=== PATIENT | male | born 1975 | race Caucasian/White ===

== ENCOUNTER 2017-04-02 06:00 | Inpatient (IN) ==
[2017-04-02] MEDS ORDERED: SALINE FLUSH 10ml SYRINGE IVF PRN (06:16)
[2017-04-02 06:23] VITALS: TEMP 98.4
--- NOTE | 2017-04-02 06:38 | Emergency Department Report ---
General Adult HPI - General Chief complaint: Shortness of Breath/Dyspnea Stated complaint: Trouble breathing Time Seen by Provider: 04/02/17 06:15 Source: patient Mode of arrival: ambulatory Limitations: no limitations - History of Present Illness HPI narrative: 42-year-old male presents to the emergency department with the chief complaint of a productive cough of yellow mucus and shortness of breath. He shouldn't noted onset of symptoms approximately 2 weeks ago. Symptoms have been gradually progressive in nature since onset. He was at home when his symptoms began. Patient also notes a moderate sharp pain in his left posterior ribs with coughing. No radiation. No other complaints or associated symptoms. Patient does have a history of similar symptoms in the past when he was diagnosed with pneumonia. - Related Data Home Medications Medication Instructions Recorded Confirmed Acetaminophen [Tylenol] 500 mg PO TID 04/02/17 04/02/17 Ibuprofen 200 mg PO TID 04/02/17 04/02/17 Allergies Allergy/AdvReac Type Severity Reaction Status Date / Time No Known Allergies Allergy Verified 04/02/17 08:29 Review of Systems Constitutional: Denies: fever, chills Eyes: Denies: eye pain, vision change ENT: Denies: ear pain, throat pain Cardiovascular: Denies: chest pain, palpitations Respiratory: Reports: cough, dyspnea. Denies: wheezes, hemoptysis Gastrointestinal: Denies: abdominal pain, nausea, vomiting, diarrhea Genitourinary: Denies: urgency, dysuria Musculoskeletal: Denies: back pain, arthralgia Integumentary: Denies: erythema, rash Neurological: Denies: headache, numbness Psychiatric: Denies: anxiety, depression Endocrine: Denies: fatigue, heat or cold intolerance Hematological/Lymphatic: Denies: easy bleeding, easy bruising PFSH Pneumonia Surgical History: Appendectomy Family History: Reviewed and noncontributory - Social History Smoking status: Current every day smoker Substance use type: does not use Alcohol intake frequency: a few times a month Physical Exam - Limitations Limitations: no limitations - General General appearance: alert, in distress (mild resp. distress) - Normal Exams: Head:: Normocephalic without trauma Eyes:: Pupils are PERRLA w/ EOMI, No scleral icterus, irritation, or foreign bodies noted ENMT:: No facial trauma, nasal exudates, pharyngeal erythema, or exudates are noted Dental: No fractured, loose, or missing teeth noted Neck:: Full range of motion, without adenopathy, JVD, bruits or thyromegaly Chest/Respirations:: with good airflow (by basilar crackles greater on the left. ), and symmetry bilaterally Cardiovascular:: Regular rate and rhythm, without murmur or gallop, Pulses 2+ all extremities, capillary refill, <2 seconds all extremities Abdomen:: Bowel sounds positive, soft, non-tender, non-distended, no hepatosplenomegaly, masses or bruits noted Lymphatic:: No lymphadenopathy, or lymphedema noted Musculoskeletal:: No tenderness, or deformity noted, good range of motion, all extremities Integumentary:: No rashes, hives, or bruising noted, hair and nails, without abnormality Neurological:: Patient is alert, and oriented, cranial nerves, motor/sensory/ cerebellar, exams w/o gross deficits, to observation Course Vital Signs Temperature 98.4 F 04/02/17 06:03 Pulse Rate 108 H 04/02/17 06:03 Respiratory Rate 42 H 04/02/17 06:03 Blood Pressure 155/111 H 04/02/17 06:03 Pulse Oximetry 87 L 04/02/17 06:03 Temperature 98.4 F 04/02/17 06:03 Pulse Rate 100 04/02/17 10:15 Respiratory Rate 36 H 04/02/17 10:15 Blood Pressure 122/77 04/02/17 10:15 Pulse Oximetry 93 04/02/17 10:15 Medical Decision Making - [facility] Narrative Medical decision making narrative: Labs / imaging were discussed in detail with the patient and questions are answered. Patient was given Rocephin and Zithromax intravenously. Patient was given parental narcotic and antiemetic medications intravenously with improvement of symptoms. Patient originally is in agreement with the current plan of management is admitted to the hospital to the service of Dr. Mcdermott in improved condition. Patient is requiring supplemental oxygenation. After being admitted to the service of the hospitalist, the patient changes his mind and requests to leave AGAINST MEDICAL ADVICE. Patient signed the AMA form and leaves emergency department AGAINST MEDICAL ADVICE. Patient is clinically sober. Patient is capable of sounds medical decision-making. Patient is aware that he may return to the emergency department any time if he wishes to be re- evaluated or if his condition worsens or changes in any manner. Patient is instructed to return to the emergency Department if his condition worsens or changes in any manner. Patient is to follow-up with his primary care physician or health ministries as soon as possible. Repeat attempt at counseling was made in or to get the patient to change his mind and undergo further evaluation and treatment which he declines. Patient signed the AMA form and leaves the emergency department AGAINST MEDICAL ADVICE at this time. He is aware that leaving the emergency department AGAINST MEDICAL ADVICE could result in and/or permanent disability. Patient was convinced to take a prescription for Levaquin even though he refused discharge instructions. Patient was given Rocephin and Zithromax intravenously at 0815 and the chest x- ray was reviewed and sepsis was considered. Patient was never hypotensive in the emergency department and his lactic acid was never greater than 4. At 0900 the patient requests to leave against medical advice. He left AMA shortly following 0900. - Differential Diagnosis PNA, Pneumothorax, URI, Acute bronchitis - Lab Data Result diagrams: 04/02/17 06:47 04/02/17 06:47 Lab Results 04/02/17 04/02/17 04/02/17 Range/Units 06:47 06:47 06:47 WBC 13.5 H (4.5-11.0) T/MM3 RBC 4.84 (4.50-5.90) M/MM3 Hgb 15.4 (13.5-17.5) GM/DL Hct 46.8 (41-53) % MCV 96.7 (80-100) UM3 MCH 31.8 (26-34) UUG MCHC 32.9 (31-37) GM/DL RDW Std Deviation 50.4 H (36.9-50.2) FL Plt Count 251 (130-400) T/MM3 MPV 10.2 (9.4-12.4) UM3 Immature Gran % (Auto) 0.4 (0.0-0.5) % Neut % (Auto) 79.9 H (33-66) % Lymph % (Auto) 12.3 L (23-45) % [place] % (Auto) 4.4 (0-9.0) % Eos % (Auto) 2.5 (0-4) % Baso % (Auto) 0.5 (0-2) % Neut # (Auto) 10.8 H (1.8-7.7) T/MM3 Lymph # (Auto) 1.7 (1-4.8) T/MM3 [place] # (Auto) 0.6 (0-0.8) T/MM3 Eos # (Auto) 0.3 (0-0.5) T/MM3 Baso # (Auto) 0.1 (0-0.2) T/MM3 Abs Immat Gran (auto) 0.06 H (0.00-0.03) T/MM3 Turbidity < 20 (0-20) Sodium 141 (134-144) MEQ/L Potassium 4.9 (3.6-5) MEQ/L Chloride 105 (98-107) MEQ/L Carbon Dioxide 27 (22-30) MEQ/L Anion Gap 9 (5-15) MEQ/L BUN 15.0 (9-20) MG/DL Creatinine 0.7 L (0.8-1.5) MG/DL GFR Calculation 125 BUN/Creatinine Ratio 21 (6-26) RATIO Glucose 153 H (75-110) MG/DL Hemoglobin A1c (4.0-5.7) % Calculated Osmolality 275 (261-280) MOSM/KG Calcium 9.1 (8.4-10.2) MG/DL Total Bilirubin 0.50 (0.20-1.30) MG/DL Icterus Index < 2 (0-7) AST 39 (17-59) U/L ALT 72 (21-72) U/L Alkaline Phosphatase 87 (38-126) U/L Troponin I < 0.012 (0-0.12) ng/ml B-Natriuretic Peptide 77.4 (0-175) pg/mL Total Protein 7.7 (6.3-8.2) G/DL Albumin 4.2 (3.5-5.0) G/DL Globulin 3.5 (2.4-3.6) G/DL Albumin/Globulin Ratio 1.2 (1.1-2.2) RATIO Plasma Lactate Procalcitonin < 0.05 NG/ML TSH (0.47-4.68) MIU/L Specimen Hemolysis < 15 (0-25) 04/02/17 04/02/17 Range/Units 06:47 07:26 WBC (4.5-11.0) T/MM3 RBC (4.50-5.90) M/MM3 Hgb (13.5-17.5) GM/DL Hct (41-53) % MCV (80-100) UM3 MCH (26-34) UUG MCHC (31-37) GM/DL RDW Std Deviation (36.9-50.2) FL Plt Count (130-400) T/MM3 MPV (9.4-12.4) UM3 Immature Gran % (Auto) (0.0-0.5) % Neut % (Auto) (33-66) % Lymph % (Auto) (23-45) % [place] % (Auto) (0-9.0) % Eos % (Auto) (0-4) % Baso % (Auto) (0-2) % Neut # (Auto) (1.8-7.7) T/MM3 Lymph # (Auto) (1-4.8) T/MM3 [place] # (Auto) (0-0.8) T/MM3 Eos # (Auto) (0-0.5) T/MM3 Baso # (Auto) (0-0.2) T/MM3 Abs Immat Gran (auto) (0.00-0.03) T/MM3 Turbidity (0-20) Sodium (134-144) MEQ/L Potassium (3.6-5) MEQ/L Chloride (98-107) MEQ/L Carbon Dioxide (22-30) MEQ/L Anion Gap (5-15) MEQ/L BUN (9-20) MG/DL Creatinine (0.8-1.5) MG/DL GFR Calculation BUN/Creatinine Ratio (6-26) RATIO Glucose (75-110) MG/DL Hemoglobin A1c 7.1 H (4.0-5.7) % Calculated Osmolality (261-280) MOSM/KG Calcium (8.4-10.2) MG/DL Total Bilirubin (0.20-1.30) MG/DL Icterus Index (0-7) AST (17-59) U/L ALT (21-72) U/L Alkaline Phosphatase (38-126) U/L Troponin I (0-0.12) ng/ml B-Natriuretic Peptide (0-175) pg/mL Total Protein (6.3-8.2) G/DL Albumin (3.5-5.0) G/DL Globulin (2.4-3.6) G/DL Albumin/Globulin Ratio (1.1-2.2) RATIO Plasma Lactate Cancelled 1.4 Procalcitonin NG/ML TSH 5.57 H (0.47-4.68) MIU/L Specimen Hemolysis (0-25) - Radiology Data CXR: Impression: Lower lobe pneumonia, worse on the left. - EKG Data EKG #1 EKG results narrative: Sinus rhythm with sinus arrhythmia. 93 bpm. No STEMI. Normal EKG. Disposition Clinical Impression: Acute dyspnea Pneumonia Qualifiers: Pneumonia type: due to unspecified organism Laterality: unspecified laterality Lung location: unspecified part of lung Qualified Code(s): J18.9 - Pneumonia, unspecified organism Disposition: To [facility] Condition: Stable Time of Disposition: 08:00 (Admit. Dr. Mcdermott. ) - Seen By: physician
[2017-04-02] MEDS ORDERED: ALBUTEROL/IPRATROPIUM 2.5mg-0.5mg/3ml NEB AEROSOL ONE (06:47)
--- NOTE | 2017-04-02 07:54 | XRay Report ---
Indication: sob PROCEDURE: XR chest 1V: Encounter: Initial Comparison: None Findings: The lungs are hypoinflated. Elevated left hemidiaphragm. Hazy airspace disease in both lower lung dorman, left greater than right. No pneumothorax. Cardiac silhouette is partially obscured by the elevated diaphragm and appears at the upper limits of normal in size. Mediastinal contours are within normal limits. Impression: Lower lobe pneumonia, worse on the left. .
[2017-04-02] MEDS ORDERED: AZITHROMYCIN IV 500 MG in NS 250ml 250 ML IV ONE (08:15)
[2017-04-02] MEDS ORDERED: CEFTRIAXONE (ER USE ONLY) 1 GM in NS 100 ML IV ONE (08:15)
[2017-04-02] MEDS ORDERED: NS 1,000 ML IV ONE (08:16)
[2017-04-02] MEDS ORDERED: ONDANSETRON 4 MG/2 ML INJECTION IVP ONE (08:20)
[2017-04-02] MEDS ORDERED: FentaNYL 100 MCG/2 ML INJECTION IVP ONE (08:20)
--- NOTE | 2017-04-02 09:20 | History & Physical Report ---
History of Present Illness Date: 04/02/17 Chief complaint: shortness of breath HPI: Patient is a 42-year-old male who presents to the emergency room today with shortness of breath and pain in the left side of his back. States he's had some runny and stuffy nose this past week. He really hasn't had much of a cough other than his chronic smoker's cough. This morning he woke up and he coughed and had a "pinching" pain to the back and this prompted him to come in. He also reports that over the last 2-4 weeks she's had significant swelling to his abdomen and lower extremities. He denies history of asthma. Reports he had pneumonia 10 years ago. Patient was seen in the emergency room. He reports the pain in his back is now just a dull ache. He is obviously short of breath. He is asking how long he is going to be here as he has 4 more days to work for [employer]. He reports that he will be leaving in 24 hours regardless. Review of Systems All systems PM: 10-point ROS was reviewed, no additional remarkable complaints except Review of systems: dyspnea, pain in L lateral back with cough this morning, minimal cough, swelling to abdomen and legs x 2-4 weeks, rash R axilla after using new deodorant months ago. [facility] Medical history Morbid obesity - BMI 42 Surgical History: appy Family History: Father - CAD, DM Mother - healthy - Social History Smoking status: Current every day smoker (1ppd x 20 yrs) Substance use type: does not use Alcohol intake frequency: other (rare) Household members: children (2 son (Jr and 6th grader)) Social history: No PCP. Kids see Dr. Jerez. Beatriz dunlap. Works for [employer] currently. Medications Home Medications Medication Instructions Recorded Confirmed Type Acetaminophen [Tylenol] 500 mg PO TID 04/02/17 04/02/17 History Ibuprofen 200 mg PO TID 04/02/17 04/02/17 History Allergies Allergy/AdvReac Type Severity Reaction Status Date / Time No Known Allergies Allergy Verified 04/02/17 08:29 Exam Vital Signs: Temperature 98.4 F 04/02/17 06:03 Pulse Rate 108 H 04/02/17 06:03 Respiratory Rate 44 H 04/02/17 06:31 Blood Pressure 155/111 H 04/02/17 06:03 Pulse Oximetry 94 04/02/17 06:31 - Constitutional Present: well nourished, well developed, morbidly obese - Routine HEENT Exam Head: Present: normocephalic, atraumatic Eye: Present: EOMI, PERRL ENT: Present: mucous membranes moist. Absent: oropharynx clear (erythema to the soft palate), dentition normal (missing teeth) - Routine Neck Exam Present: supple. Absent: lymphadenopathy, thyromegaly - Routine Respiratory Exam Present: dyspnea, decreased breath sounds, CTA bilaterally (subtle coarse expiratory wheeze) - Routine Cardiovascular Exam Present: tachycardia. Absent: murmur Comments: Regular rhythm - Routine Abdominal Exam Present: normoactive bowel sounds, firm. Absent: tenderness, rebound, guarding Comments: Exam is limited due to the obesity and firmness of his abdomen - Routine Extremities Exam Present: edema (anasarca), normal capillary refill - Routine Skin Exam Present: dry, warm, rash (diffuse fungal rash to the right axilla extending onto the upper arm and chest) - Routine Neurological Exam Present: alert, oriented X3, CN II-XII intact - Routine Psychiatric Exam Present: normal affect, cooperative Results - Labs CBC & Chem 7: 04/02/17 06:47 04/02/17 06:47 Labs: Laboratory Tests 04/02/17 04/02/17 04/02/17 06:47 06:47 07:26 Total Bilirubin 0.50 AST 39 ALT 72 Alkaline Phosphatase 87 Troponin I < 0.012 B-Natriuretic Peptide 77.4 Total Protein 7.7 Albumin 4.2 Globulin 3.5 Plasma Lactate 1.4 Procalcitonin < 0.05 - ECG Data Tracing #1 Normal sinus rhythm heart rate 93 - Imaging and Cardiology Chest x-ray Additional comments: Date of Exam: 04/02/17 Indication: sob PROCEDURE: XR chest 1V: Findings: The lungs are hypoinflated. Elevated left hemidiaphragm. Hazy airspace disease in both lower lung dorman, left greater than right. No pneumothorax. Cardiac silhouette is partially obscured by the elevated diaphragm and appears at the upper limits of normal in size. Mediastinal contours are within normal limits. Impression: Lower lobe pneumonia, worse on the left. Assessment and Plan (1) Community acquired pneumonia Status: Acute Assessment and Plan: Assessment Respiratory insufficiency with hypoxia Sepsis secondary to pneumonia Manifestations: Tachycardia, tachypnea, leukocytosis Community-acquired pneumonia Anasarca Morbid obesity-BMI 42.0 Hyperglycemia-POA Tinea corporis Tobacco dependence Plan Admit to inpatient status under the care of the hospitalist service, Dr. Lewis attending. It is expected that his stay will exceed 2 overnights given his sepsis secondary to pneumonia and overall condition. SCDs and Lovenox for DVT prophylaxis A1c to evaluate his hyperglycemia. TSH and urinalysis for laboratory completeness. Repeat CBC and BMP in am to follow leukocytosis, renal function and electrolytes. Schedule echocardiogram to evaluate cardiac structure and function given his anasarca and dyspnea. Oxygen, DuoNeb treatments, Acapella, and guaifenesin for respiratory symptoms. Continue Rocephin and Zithromax initiated and the emergency room. Blood cultures were drawn prior to antibiotic initiation. RT consult tobacco cessation. Terbinafine for his tinea corporis Patient wishes to be a full code. Case discussed with Dr. Lewis. Case management will need to assist in finding patient a PCP. DVT Prophylaxis: SCD's, Lovenox Resuscitation Status: Full Code - Physician Narrative Physician: Wally Lewis MD Narrative: Patient left AMA from ED before being admitted to medical floor. Hospital Course Summary Disclaimer: The visit summary below is not to be considered part of the above Progress Note. Hospital Course: Assessment Respiratory insufficiency with hypoxia Sepsis secondary to pneumonia Manifestations: Tachycardia, tachypnea, leukocytosis Community-acquired pneumonia Anasarca Morbid obesity-BMI 42.0 Hyperglycemia-POA Tinea corporis Tobacco dependence 04/02/17 -Hospital admission Admit to inpatient status under the care of the hospitalist service, Dr. eLwis attending. It is expected that his stay will exceed 2 overnights given his sepsis secondary to pneumonia and overall condition. SCDs and Lovenox for DVT prophylaxis A1c to evaluate his hyperglycemia. TSH and urinalysis for laboratory completeness. Repeat CBC and BMP in am to follow leukocytosis, renal function and electrolytes. Schedule echocardiogram to evaluate cardiac structure and function given his anasarca and dyspnea. Oxygen, DuoNeb treatments, Acapella, and guaifenesin for respiratory symptoms. Continue Rocephin and Zithromax initiated and the emergency room. Blood cultures were drawn prior to antibiotic initiation. RT consult tobacco cessation. Terbinafine for his tinea corporis Patient wishes to be a full code. Case discussed with Dr. Lewis. Case management will need to assist in finding patient a PCP.
[2017-04-02] MEDS ORDERED: GUAIFENESIN LA 600 MG TABLET PO SCH (09:52)
[2017-04-02] MEDS ORDERED: ACETAMINOPHEN 325 MG TABLET PO PRN (09:53)
[2017-04-02] MEDS ORDERED: ALBUTEROL/IPRATROPIUM 2.5mg-0.5mg/3ml NEB AEROSOL SCH (11:00)
[2017-04-02 12:19] VITALS: BP 122/77; PULSE 100; RESP 36; O2SAT 93
[2017-04-02] MEDS ORDERED: TERFINAFINE 1% CREAM 12 G TUBE TOP SCH (21:00)
[2017-04-03] MEDS ORDERED: ENOXAPARIN 40 MG/0.4 ML INJECTION SQ SCH (09:00)
[2017-04-03] MEDS ORDERED: AZITHROMYCIN 500 MG TABLET PO SCH (09:00)
[2017-04-03] MEDS ORDERED: CEFTRIAXONE 1 G in NS 100 ML IV SCH (09:00)
== END 2017-04-02 10:00 | disposition left against medical advice (07) | DRG 871 ==
LOC: ED 06:00 → MED 08:22
PROVIDERS: ADMIT Hospitalist; ATTEND Hospitalist

== ENCOUNTER 2017-04-02 11:30 | Inpatient (IN) ==
--- NOTE | 2017-04-02 11:52 | Emergency Department Report ---
General Adult HPI - General Chief complaint: Shortness of Breath/Dyspnea Stated complaint: diff breathing Time Seen by Provider: 04/02/17 11:51 Source: patient Mode of arrival: wheelchair Limitations: no limitations - History of Present Illness HPI narrative: 42-year-old male who signed out AGAINST MEDICAL ADVICE from the emergency department approximately 1 hour and 15 minutes prior to returning to the ED for further evaluation and treatment. Patient does not note any change in his condition from earlier. Patient is still feeling dyspneic with a cough productive of yellow phlegm which has been present for the past 2 weeks. Patient is still noting the feeling of dyspnea. Patient denies any other complaints or associated symptoms. Symptoms have been persistent in nature since onset. Patient was given Rocephin and Zithromax intravenously during his initial emergency department visit. - Related Data Home Medications Medication Instructions Recorded Confirmed Acetaminophen [Tylenol] 500 mg PO TID 04/02/17 04/02/17 Ibuprofen 200 mg PO TID 04/02/17 04/02/17 Allergies Allergy/AdvReac Type Severity Reaction Status Date / Time No Known Allergies Allergy Verified 04/02/17 08:29 Review of Systems Constitutional: Denies: fever, chills Eyes: Denies: eye pain, vision change ENT: Denies: ear pain, throat pain Cardiovascular: Denies: chest pain, palpitations Respiratory: Reports: cough, dyspnea. Denies: wheezes Gastrointestinal: Denies: abdominal pain, nausea, vomiting, diarrhea Genitourinary: Denies: urgency, dysuria Musculoskeletal: Denies: back pain, arthralgia Integumentary: Denies: erythema, rash Neurological: Denies: headache, numbness Psychiatric: Denies: anxiety, depression Endocrine: Denies: fatigue, heat or cold intolerance Hematological/Lymphatic: Denies: easy bleeding, easy bruising Allergic/Immunologic: Denies: facial swelling, urticaria PFSH Pneumonia Surgical History: appy Family History: Reviewed and Noncontributory. - Social History Smoking status: Current every day smoker (1ppd x 20 yrs) Substance use type: does not use Alcohol intake frequency: a few times a month Physical Exam - Limitations Limitations: no limitations - General General appearance: alert, in distress (Mild resp. distress. ) - Normal Exams: Head:: Normocephalic without trauma Eyes:: Pupils are PERRLA w/ EOMI, No scleral icterus, irritation, or foreign bodies noted ENMT:: No facial trauma, nasal exudates, pharyngeal erythema, or exudates are noted Dental: No fractured, loose, or missing teeth noted Neck:: Full range of motion, without adenopathy, JVD, bruits or thyromegaly Chest/Respirations:: with good airflow (Bibasilar crackles > L), and symmetry bilaterally Cardiovascular:: Regular rate and rhythm, without murmur or gallop, Pulses 2+ all extremities, capillary refill, <2 seconds all extremities Abdomen:: Bowel sounds positive, soft, non-tender, non-distended, no hepatosplenomegaly, masses or bruits noted Lymphatic:: No lymphadenopathy, or lymphedema noted Musculoskeletal:: No tenderness, or deformity noted, good range of motion, all extremities Integumentary:: No rashes, hives, or bruising noted, hair and nails, without abnormality Neurological:: Patient is alert, and oriented, cranial nerves, motor/sensory/ cerebellar, exams w/o gross deficits, to observation Course Vital Signs Temperature 97.8 F 04/02/17 11:32 Pulse Rate 114 H 04/02/17 11:32 Respiratory Rate 58 H 04/02/17 11:32 Blood Pressure 112/79 04/02/17 11:32 Pulse Oximetry 66 L 04/02/17 11:32 Temperature 97.8 F 04/02/17 11:32 Pulse Rate 106 H 04/02/17 12:23 Respiratory Rate 42 H 04/02/17 13:45 Blood Pressure 139/94 H 04/02/17 12:23 Pulse Oximetry 97 04/02/17 13:45 Medical Decision Making - [facility] Narrative Medical decision making narrative: Patient has supplemental oxygen applied in the emergency department upon arrival which improved his oxygen saturation into the mid 90s. Once patient is taken to the floor BiPAP will be applied by the accepting physician. Patient's initial ER visit was reviewed. Patient was accepted by Dr. Mcdermott to his service in improved condition. Patient was given Rocephin and Zithromax intravenously during his 1st emergency department visit today prior to signing out AMA. Patient is admitted to the floor in improved condition. No further orders from accepting physician who is in agreement with the current plan of management. Patient is in agreement with the current plan of management. Patient was given Rocephin / Zithromax iv at 0815 today upon consideration of sepsis during his initial visit today. His lactate was < 4 and he was never hypotensive in the ED. patient has had the initial dosing of antibiotics today when sepsis was initially considered during his 1st ED visit prior to signing out AGAINST MEDICAL ADVICE. Patient was at home approximately 1 hour prior to returning to the ED. It is not time to re-dose the patient with antibiotic therapy at this time. Patient was admitted to the hospitalist immediately after arrival to the ED at 1151 am. - Differential Diagnosis Pneumonia, URI, Bronchitis, COPD Disposition Clinical Impression: sepsis/hypoxia Disposition: 02 To [facility] Acute Care Condition: Stable Time of Disposition: 11:51 (Admit. Dr. Mcdermott. ) - Seen By: physician
--- NOTE | 2017-04-02 12:15 | History & Physical Report ---
History of Present Illness Date: 04/02/17 Chief complaint: shortness of breath HPI: Patient is a 42-year-old male who initially presented to the emergency room earlier today with with shortness of breath and pain in the left side of his back. At that time he stated that he's had some runny and stuffy nose this past week. He really hasn't had much of a cough other than his chronic smoker's cough. This morning he woke up and he coughed and had a "pinching" pain to the back and this prompted him to come in. He also reports that over the last 2-4 weeks she's had significant swelling to his abdomen and lower extremities. He denies history of asthma. Reports he had pneumonia 10 years ago. Patient was seen in the emergency room and admitted; however, before patient was brought to the floor, he left AMA. He returned to the emergency room approximately an hour after he left with oxygen saturation of 66% and respiration rate 58. He is agreeable to admission at this point. He was seen in his room on his second admission. He is in significantly more distress than he was when I saw him in the emergency room. He is currently on 10 L on a nonrebreather. BiPAP has been ordered. He reports the pain in his left back and on his left beltline is back and is a "pinching" feeling. Hurts worse if he takes a deep breath. He is anxious. Review of Systems All systems PM: 10-point ROS was reviewed, no additional remarkable complaints except (dyspnea, pain in L lateral back with cough this morning, minimal cough, swelling to abdomen and legs x 2-4 weeks, rash R axilla after using new deodorant months ago.) [facility] Medical history Morbid obesity - BMI 42 Surgical History: appy Family History: Father - CAD, DM Mother - healthy - Social History Smoking status: Current every day smoker (1ppd x 20 yrs) Substance use type: does not use Alcohol intake frequency: other (rare) Household members: children (2 sons) Social history: No PCP. Kids see Dr. Jerez. Single dad. Works for [employer] currently. Medications Home Medications Medication Instructions Recorded Confirmed Type Acetaminophen [Tylenol] 500 mg PO TID 04/02/17 04/02/17 History Ibuprofen 200 mg PO TID 04/02/17 04/02/17 History Allergies Allergy/AdvReac Type Severity Reaction Status Date / Time No Known Allergies Allergy Verified 04/02/17 08:29 Exam Vital Signs: Temperature 97.8 F 04/02/17 11:32 Pulse Rate 101 H 04/02/17 11:58 Respiratory Rate 44 H 04/02/17 11:58 Blood Pressure 112/79 04/02/17 11:58 Pulse Oximetry 96 04/02/17 11:58 - Constitutional Present: moderate distress, well nourished, well developed, obese - Routine HEENT Exam Head: Present: normocephalic, atraumatic Eye: Present: EOMI, PERRL ENT: Present: mucous membranes moist. Absent: oropharynx clear (erythema), dentition normal (missing teeth) - Routine Neck Exam Present: supple. Absent: lymphadenopathy, thyromegaly - Routine Respiratory Exam Present: accessory muscle use, dyspnea, decreased breath sounds, respiratory distress (tachypnea), wheezes (diffuse), diminished air movement (diffuse) - Routine Cardiovascular Exam Present: tachycardia. Absent: murmur - Routine Abdominal Exam Present: normoactive bowel sounds, firm. Absent: tenderness, rebound, guarding Comments: Exam limited due to patient's obesity and firmness of the abdomen - Routine Extremities Exam Present: edema (anasarca), normal capillary refill - Routine Skin Exam Present: dry, warm, rash (diffuse fungal rash to the right axilla, right upper arm and right chest) - Routine Neurological Exam Present: alert, oriented X3, CN II-XII intact - Routine Psychiatric Exam Present: normal affect, cooperative Results - Labs Labs: The following were drawn during his first ED visit Laboratory Tests 04/02/17 06:47 WBC 13.5 H RBC 4.84 Hgb 15.4 Hct 46.8 MCV 96.7 MCH 31.8 MCHC 32.9 RDW Std Deviation 50.4 H Plt Count 251 MPV 10.2 Neut % (Auto) 79.9 H Lymph % (Auto) 12.3 L Neut # (Auto) 10.8 H Laboratory Tests 04/02/17 04/02/17 04/02/17 06:47 06:47 06:47 Sodium 141 Potassium 4.9 Chloride 105 Carbon Dioxide 27 Anion Gap 9 BUN 15.0 Creatinine 0.7 L GFR Calculation 125 BUN/Creatinine Ratio 21 Glucose 153 H Hemoglobin A1c 7.1 H Calculated Osmolality 275 Calcium 9.1 Total Bilirubin 0.50 Icterus Index < 2 AST 39 ALT 72 Alkaline Phosphatase 87 Troponin I < 0.012 B-Natriuretic Peptide 77.4 Total Protein 7.7 Albumin 4.2 Globulin 3.5 Albumin/Globulin Ratio 1.2 Plasma Lactate Cancelled Procalcitonin < 0.05 TSH 5.57 H - Imaging and Cardiology Chest x-ray Additional comments: This x-ray was done on his initial ER visit Date of Exam: 04/02/17 Reason for Exam(s): sob Indication: sob PROCEDURE: XR chest 1V: Findings: The lungs are hypoinflated. Elevated left hemidiaphragm. Hazy airspace disease in both lower lung dorman, left greater than right. No pneumothorax. Cardiac silhouette is partially obscured by the elevated diaphragm and appears at the upper limits of normal in size. Mediastinal contours are within normal limits. Impression: Lower lobe pneumonia, worse on the left. Assessment and Plan (1) Community acquired pneumonia Current visit: No Status: Acute Assessment and Plan: Assessment Acute hypoxic respiratory failure Sepsis secondary to pneumonia Manifestations: Tachycardia, tachypnea, leukocytosis Community-acquired pneumonia Anasarca Morbid obesity-BMI 42.0 Diabetes Mellitus Type 2 - A1C 7.1 on admission (new diagnosis) Tinea corporis Tobacco dependence Plan Admit to inpatient status under the care of the hospitalist service, Dr. Lewis attending. It is expected that his stay will exceed 2 overnights given his sepsis secondary to pneumonia and overall condition. SCDs for DVT prophylaxis. Consider CTA chest to rule out PE when he is stable. At this point, will put him on treatment dose Lovenox dosing until PE can be ruled out. Urinalysis for laboratory completeness. Repeat CBC and BMP in am to follow leukocytosis, renal function and electrolytes. Schedule echocardiogram to evaluate cardiac structure and function given his anasarca and dyspnea. Ativan prn anxiety/dyspnea. Diabetic ed for new diagnosis of DM. Oxygen, DuoNeb treatments, Acapella, and guaifenesin for respiratory symptoms. Continue Rocephin and Zithromax initiated and the emergency room. Blood cultures were drawn prior to antibiotic initiation. RT consult tobacco cessation. Terbinafine topically for his tinea corporis Patient wishes to be a full code. Case discussed with Dr. Lewis. Case management will need to assist in finding patient a PCP. DVT Prophylaxis: SCD's, Lovenox Resuscitation Status: Full Code - Physician Narrative Physician: Wally Lewis MD Narrative: Date: 04/02/17 Time: 1909 I have independently interviewed and examined pt. Chart reviewed. Case discussed with ED physician and my CHANGE MANAGER. Care plan developed with my supervision ; agree with above. Patient presents to ED secondary to increasing SOA and congestion. Evaluated in ED and found to have pneumonia-meeting sepsis criteria. Orders for admission made, but patient left AMA from ED before taken to room. Represented shortly later with continued work of breathing. Admitted. BIPAP started for respiratory support. Assessment Acute hypoxic/hypercapnic respiratory failure Sepsis secondary to pneumonia Manifestations: Tachycardia, tachypnea, leukocytosis Community-acquired pneumonia Anasarca Diabetes Mellitus Type 2 - A1C 7.1 on admission (new diagnosis) Tinea corporis Tobacco dependence Morbid obesity-BMI 42.0 Plan Inpatient admission for treatment of acute hypoxic/hypercapnic respiratory failure and pneumonia. Initially patient admitted to medical floor, but with increase work of breathing did transfer to CCU for closer care and interventions. BiPAP for respiratory support. Rocephin and azithromycin for antimicrobial coverage. Neb treatments of DuoNeb and Budesonide. Mucinex DM to decrease cough and provide mucolytic effect. Acapella to help loosen secretions. With significant dyspnea, potential for PE exists. With significant respiratory distress and need for BiPAP, do not feel CTPE would be prudent at this time. Will initiate full dose Lovenox for coverage for PE - Consider CT PE protocol once respiratory status improves. Consult with Dr Pineda - concern he may need home ventilatory assistance based on his body habitus. RT for tobacco cessation. Monitor lab. Hospital Course Summary Disclaimer: The visit summary below is not to be considered part of the above Progress Note. Hospital Course: Assessment Respiratory insufficiency with hypoxia Sepsis secondary to pneumonia Manifestations: Tachycardia, tachypnea, leukocytosis Community-acquired pneumonia Anasarca Morbid obesity-BMI 42.0 Hyperglycemia-POA Tinea corporis Tobacco dependence 04/02/17 Hospital admission Admit to inpatient status under the care of the hospitalist service, Dr. Lewis attending. It is expected that his stay will exceed 2 overnights given his sepsis secondary to pneumonia and overall condition. SCDs and Lovenox for DVT prophylaxis Urinalysis for laboratory completeness. Repeat CBC and BMP in am to follow leukocytosis, renal function and electrolytes. Schedule echocardiogram to evaluate cardiac structure and function given his anasarca and dyspnea. Oxygen, DuoNeb treatments, Acapella, and guaifenesin for respiratory symptoms. Continue Rocephin and Zithromax initiated and the emergency room. Blood cultures were drawn prior to antibiotic initiation. RT consult tobacco cessation. Terbinafine topically for his tinea corporis Patient wishes to be a full code. Case discussed with Dr. Lewis. Case management will need to assist in finding patient a PCP.
[2017-04-02] MEDS ORDERED: GUAIFENESIN LA 600 MG TABLET PO SCH (12:26)
[2017-04-02] MEDS ORDERED: ACETAMINOPHEN 325 MG TABLET PO PRN (12:28)
[2017-04-02] MEDS ORDERED: FUROSEMIDE 40 MG/4 ML INJECTION IVP ONE (12:32)
[2017-04-02] MEDS: ALBUTEROL/IPRATROPIUM 2.5mg-0.5mg/3ml NEB AEROSOL SCH ×3 (13:44→23:51)
[2017-04-02] MEDS: ENOXAPARIN 100 MG/ML INJECTION SQ SCH (14:29)
[2017-04-02] MEDS ORDERED: MENTHOL COUGH DROPS (RICOLA) MM PRN (14:55)
[2017-04-02] MEDS: TERFINAFINE 1% CREAM 12 G TUBE TOP SCH ×2 (17:09→23:30)
[2017-04-02] MEDS ORDERED: ALBUTEROL/IPRATROPIUM 2.5mg-0.5mg/3ml NEB AEROSOL PRN (17:47)
[2017-04-02] MEDS: SODIUM CL 3% INHAL.SOLN 15ml NEB AEROSOL PRN (19:10)
[2017-04-02] MEDS ORDERED: MORPHINE SULFATE 2mg INJECTION IVP PRN (19:17)
[2017-04-02] MEDS: PROPOFOL 1,000 MG/100 ML VIAL IV PRN ×3 (20:00→22:00)
--- NOTE | 2017-04-02 20:11 | Anesthesia Procedure Note ---
IRU ANES Consult Intubation - Date and Time Date and Time: 04/02/17 Diagnosis: Acute Respiratory Failure Allergies/Adverse Reactions: Allergies Allergy/AdvReac Type Severity Reaction Status Date / Time Penicillins Allergy Mild Rash Verified 04/02/17 20:06 - Vital Signs Initial Vital Signs: Temperature 97.8 F 04/02/17 11:32 Temperature Source Temporal Artery Scan 04/02/17 11:32 Sepsis Score/Level No Definite Risk 04/02/17 11:32 Sepsis Action Taken by Nursing No Action 04/02/17 11:32 Pulse Rate 114 H 04/02/17 11:32 Pulse Rhythm 04/02/17 11:32 Respiratory Rate 58 H 04/02/17 11:32 Respiratory Effort Short of Breath 04/02/17 11:32 Respiratory Depth Shallow 04/02/17 11:32 Respiratory Pattern Gasping 04/02/17 11:32 Blood Pressure 112/79 04/02/17 11:32 Blood Pressure Mean 90 04/02/17 11:32 Blood Pressure Position Sitting 04/02/17 11:32 Pulse Oximetry 66 L 04/02/17 11:32 Oxygen Delivery Method 04/02/17 11:32 Post Vital Signs: Temperature 100.7 F H 04/02/17 16:59 Temperature Source Axillary 04/02/17 16:59 Sepsis Score/Level No Definite Risk 04/02/17 11:32 Sepsis Action Taken by Nursing No Action 04/02/17 11:32 Pulse Rate 107 H 04/02/17 18:15 Pulse Rhythm 04/02/17 17:30 Respiratory Rate 42 H 04/02/17 19:00 Respiratory Effort Short of Breath 04/02/17 17:30 Respiratory Depth Shallow 04/02/17 17:30 Respiratory Pattern 04/02/17 17:30 Blood Pressure 160/94 H 04/02/17 18:15 Blood Pressure Mean 116 04/02/17 18:15 Blood Pressure Position Sitting 04/02/17 15:43 Pulse Oximetry 92 04/02/17 19:00 Oxygen Delivery Method 04/02/17 18:15 Oxygen Flow Rate 15 04/02/17 12:23 Fraction of Inspired Oxygen 70 04/02/17 18:15 - Medications Inpatient Medications: Acetaminophen (Tylenol) 650 mg PO Q5H PRN PRN Reason: Discomfort Albuterol/Ipratropium (Duoneb) 3 ml AEROSOL RTQID [facility] Last Admin: 12/20/17 19:10 Dose: 3 ml Albuterol/Ipratropium (Duoneb) 3 ml AEROSOL RTBID PRN Last Admin: 04/02/17 17:50 Dose: 3 ml Azithromycin (Zithromax Eq.) 250 mg PO DAILY [facility] Stop: 04/06/17 09:01 Bisacodyl (Dulcolax) 10 mg RECTALLY DAILY PRN PRN Reason: Constipation Enoxaparin Sodium (Lovenox) 170 mg SQ Q12H [facility] Last Admin: 04/02/17 14:29 Dose: 170 mg Guaifenesin/Dextromethorphan (Mucinex Dm) 1 tab PO BID [facility] Ceftriaxone Sodium 1 g/ Sodium (Chloride) 100 mls @ 200 mls/hr IV Q24H [facility] Propofol (Diprivan) 1,000 mg in 100 mls @ 5.115 mls/hr IV .[id number] PRN; 5 MCG/ KG/MIN PRN Reason: Protocol Lorazepam (Ativan Inj) 1 mg IVP Q4H PRN PRN Reason: Anxiety/Restlessness Last Admin: 04/02/17 16:55 Dose: 1 mg Magnesium Hydroxide (Mom) 30 ml PO DAILY PRN PRN Reason: Constipation Menthol (Ricola Sf) 1 lozenge MM PRN PRN PRN Reason: Cough Morphine Sulfate (Morphine Sulfate Inj) 2 mg IVP Q2H PRN PRN Reason: Pain /Air hunger Sodium Chloride (Sodium Chloride 3% Inhal) 3 ml AEROSOL RTBID PRN Last Admin: 04/02/17 19:10 Dose: 3 ml Terbinafine HCl (Lamisil At) 1 applic TOP BID [facility] Last Admin: 04/02/17 17:09 Dose: Not Given - Home Medications Home Medications: Home Medications Medication Instructions Recorded Confirmed Type Acetaminophen [Tylenol] 500 mg PO TID 04/02/17 04/02/17 History Ibuprofen 200 mg PO TID 04/02/17 04/02/17 History - Patient History Patient History: I have evaluated this patient and found no changes in the patient's history. - Pertinent Findings EKG Rhythm: Sinus Tachycardia - Physical Exam Respiratory: Rales (Bilat), Tachypnea, Decreased Breath Sounds L (base), Decreased Breath Sounds R (base) Cardiovascular: Other (tachy) - Procedure Physician: Miki Cardoza ENVIRONMENTAL INSPECTOR by order of Dr. Downs Mouth: Broken Teeth ET Tube Depth at Upper Lip: 21
[2017-04-02] MEDS ORDERED: KETAMINE 500 MG/10 ML INJECTION IVP ONE (21:00)
[2017-04-02] MEDS ORDERED: ROCURONIUM 50 MG/5 ML INJECTION IVP ONE (21:00)
[2017-04-02] MEDS ORDERED: SUCCINYLCHOLINE 20mg/mL 10mL INJECTION IVP ONE (21:00)
[2017-04-02] MEDS ORDERED: PROPOFOL 200 MG/20 ML INJECTION IVP ONE (21:00)
--- NOTE | 2017-04-02 21:47 | Procedure Note ---
Procedure Note: Consult for CVL by Dr. Pineda. Dx: Acute Respiratory Failure Procedure: Right IJ CVL Placement Proceduralist: Valdo Cardoza CRNA Consent obtained by phone from pt mother after explaining risk vs benefit of procedure. Pt is intubated and controlled on ventilator with IV sedation of Propofol gtt at 80 mcg/kg/min. 25mg Rocuronium IV given for procedure as well. Pt prepped and draped in sterile fashion. Right IJ identified by ultrasound. Needle advanced under ultrasound guidance until + blood return. Guide wire inserted without resistance and needle withdrawn. Skin incision made with blade. CVL Dilator introduced and removed. 7 Fr Triple lumen CVL placed over guidewire and advanced to 15cm and guidewire withdrawn. no ectopy noted on monitor. All lumens aspirated and flushed and CVL sutured in place and dressed with sterile tegaderm. VSS throughout procedure. + Breath sounds bilat although coarse. Portable CXR obtained. Miki Cardoza CRNA
[2017-04-02] MEDS: GUAIFENESIN/D-METHORPHAN 600mg/30mg TABLET PO SCH (23:22)
[2017-04-02] MEDS: NS 1,000 ML IV SCH (23:27)
[2017-04-02] MEDS: FentaNYL 1,000 MCG in NS 80 ML IV PRN (23:32)
[2017-04-02] MEDS: PANTOPRAZOLE 40 MG INJECTION IVP SCH (23:37)
[2017-04-03] MEDS: PROPOFOL 1,000 MG/100 ML VIAL IV PRN ×11 (00:40→22:00)
[2017-04-03] MEDS: ENOXAPARIN 100 MG/ML INJECTION SQ SCH ×2 (01:28→12:25)
[2017-04-03] MEDS: ALBUTEROL/IPRATROPIUM 2.5mg-0.5mg/3ml NEB AEROSOL SCH ×6 (04:30→22:53)
[2017-04-03] MEDS: NS 1,000 ML IV SCH ×4 (07:41→22:20)
[2017-04-03] MEDS: PANTOPRAZOLE 40 MG INJECTION IVP SCH ×3 (07:50→20:00)
[2017-04-03] MEDS: CEFTRIAXONE 1 G in NS 100 ML IV SCH ×2 (07:50→08:21)
[2017-04-03] MEDS: GUAIFENESIN/D-METHORPHAN 600mg/30mg TABLET PO SCH ×2 (08:22→20:01)
[2017-04-03] MEDS: TERFINAFINE 1% CREAM 12 G TUBE TOP SCH ×2 (08:23→20:03)
--- NOTE | 2017-04-03 08:35 | XRay Report ---
Indication: Intubation/ET Placement PROCEDURE: XR chest 1V: Encounter: Initial Comparison: 04/02/2017 Findings: Endotracheal tube in place with the tip projecting 6 cm above the brenden slightly above the level of the thoracic inlet. There is a nasogastric tube also in place extending below the diaphragm. The tip is not visualized on this exam. New right IJ line in place with the tip projecting over the superior SVC. New dense consolidation in the right midlung. Hypoinflation. Worsening airspace opacity diffusely in the left lung. Small bilateral pleural effusions. Impression: 1. Tubes and lines as above. Consider advancement of the endotracheal tube by 2 to 3 cm. 2. Worsening bilateral airspace disease and edema. There is a preliminary report by [facility]. .
[2017-04-03] MEDS ORDERED: AZITHROMYCIN 500 MG TABLET PO SCH (09:00)
[2017-04-03] MEDS ORDERED: ENOXAPARIN 40 MG/0.4 ML INJECTION SQ SCH (09:00)
[2017-04-03] MEDS ORDERED: AZITHROMYCIN 250 MG TABLET PO SCH (09:00)
--- NOTE | 2017-04-03 09:00 | XRay Report ---
Indication: Pneumonia/Intubated PROCEDURE: XR chest 1V: Encounter: Initial Comparison: April 02, 2017 Findings: Nasogastric tube remains in place. Endotracheal tube remains with the tip projecting at the level of the clavicles. Right IJ line is stable. Overlying monitoring leads. Lungs remain hypoinflated with bandlike consolidation in the right midlung and hazy airspace disease throughout the left. Small pleural effusions. No pneumothorax. Heart size and mediastinal contours are grossly stable. Impression: No change. .
[2017-04-03] MEDS ORDERED: DEXTROSE 50% SYRINGE 50ml (1 AMP) IVP PRN (09:41)
[2017-04-03] MEDS ORDERED: METHYLPREDNISOLONE SOD SUCC 125mg/2ml INJECTION IVP SCH (09:45)
--- NOTE | 2017-04-03 09:51 | Pulmonology Consult Note ---
<Luisa Green D - Last Filed: 04/03/17 09:39> History of Present Illness Consult date: 04/03/17 Requesting physician: Laly Corado Reason for consult: dyspnea, pneumonia Chief complaint: SOB, back pain History of present illness: This is a 42 yo male with a Hx of smoking, at least a 30pyh, back pain and likely has undiagnosed COPD, GLADYS, HTN and DM. Per his girlfriend the patient takes tylenol and ibuprofen regularly throughout the day and likely over the recommended doses. Patient is currently on vent so information received from the chart and girlfriend. According to his girlfriend he really doesn't see doctors or takes care of himself, they have noticed on and off extremity swelling for the past 8 months and believed it to be from sodium intake but was never worked up for this. For the past 2 weeks he has had increased swelling in his abdomen and BLE. Per the records he presented to the ER yesterday with SOB and left side back pain. States he has had a runny nose and congestion but no ill contacts known. No increase in his chronic cough noted or fevers noted. Unfortunately prior to transfer to floor he did leave AMA but returned to the ER an hour later. On return his sats were 66% with RR 50's and he was started on 10L O2 per NC and eventually bipap. Unfortunately he developed hypercapnic failure ABG 7.2/72 and required intubation last noc. CXR today with cardiomegaly , vascular congestion, Right linear infiltrate. WBC 15.6, bands 8, febrile, BNP and procalcitonin both normal yesterday. Pt was admitted to ICU and started on BT's and abx with rocephin and azithro. We have been consulted for his respiratory issues and appreciate the consult. Review of Systems ROS unobtainable: due to endotracheal tube Review of systems: As noted per HPI [facility] Surgical History: appy - Social History Smoking status: Current every day smoker (1ppd x 20 yrs) Housing: house Household members: significant other Current residence: Apartment/Private Home Medications Home Medications Medication Instructions Recorded Confirmed Type Acetaminophen [Tylenol] 500 mg PO TID 04/02/17 04/02/17 History Ibuprofen 200 mg PO TID 04/02/17 04/02/17 History Allergies Allergy/AdvReac Type Severity Reaction Status Date / Time Penicillins Allergy Mild Rash Verified 04/02/17 20:06 Exam Vital signs: Temperature 97 F 04/03/17 08:15 Pulse Rate 84 04/03/17 08:56 Respiratory Rate 18 04/03/17 08:56 Blood Pressure 152/85 H 04/03/17 08:15 Pulse Oximetry 95 04/03/17 08:56 - Constitutional no acute distress, morbidly obese - Routine HEENT Exam Head: Present: normocephalic, atraumatic Eye: Present: PERRL ENT: Present: mucous membranes moist - Routine Neck Exam Present: supple, full ROM - Routine Respiratory Exam Present: decreased breath sounds, wheezes, crackles - Routine Cardiovascular Exam Present: RRR, S1, S2, no murmur - Routine Abdominal Exam Present: firm Comments: hypoactive BS - Routine Extremities Exam Present: edema, normal capillary refill - Routine Skin Exam Present: dry, rash - Routine Neurological Exam sedated on the vent - Routine Psychiatric Exam Present: unable to assess Results - Laboratory Findings CBC and BMP: 04/03/17 04:07 04/03/17 04:07 ABG ABG pH 7.230 (7.350-7.450) L 04/03/17 04:30 ABG pCO2 72 MMHG (34-45) H* 04/03/17 04:30 ABG pO2 131 MMHG (80-100) H 04/03/17 04:30 ABG O2 Saturation 98.0 % (95.0-98.0) 04/03/17 04:30 Abnormal lab findings: Abnormal Labs 04/02/17 04/02/17 04/02/17 13:12 14:15 22:20 WBC RBC Hgb MCV MCHC RDW Std Deviation Neutrophils % (Manual) Band Neutrophils % Lymphocytes % (Manual) Metamyelocytes % Neutrophils # (Manual) Lymphocytes # (Manual) Monocytes # (Manual) ABG pH 7.200 L* 7.285 L ABG pCO2 76 H* 58 H ABG pO2 ABG HCO3 30 H 28 H ABG Total CO2 32.0 H 29 H ABG O2 Saturation 94.0 L VBG pH VBG pCO2 VBG pO2 VBG HCO3 BUN Glucose Calcium Ur Specific [place] >=1.030 H Urine Protein Trace A 04/03/17 04/03/17 04/03/17 04:07 04:07 04:30 WBC 15.6 H RBC 4.23 L Hgb 13.1 L D MCV 101.4 H MCHC 30.5 L RDW Std Deviation 56.3 H Neutrophils % (Manual) 81.0 H Band Neutrophils % 8.0 H Lymphocytes % (Manual) 2.0 L Metamyelocytes % 1.0 H Neutrophils # (Manual) 12.6 H Lymphocytes # (Manual) 0.3 L Monocytes # (Manual) 1.1 H ABG pH 7.230 L ABG pCO2 72 H* ABG pO2 131 H ABG HCO3 30 H ABG Total CO2 32.4 H ABG O2 Saturation VBG pH VBG pCO2 VBG pO2 VBG HCO3 BUN 25.0 H D Glucose 144 H Calcium 8.2 L D Ur Specific [place] Urine Protein 04/03/17 07:15 WBC RBC Hgb MCV MCHC RDW Std Deviation Neutrophils % (Manual) Band Neutrophils % Lymphocytes % (Manual) Metamyelocytes % Neutrophils # (Manual) Lymphocytes # (Manual) Monocytes # (Manual) ABG pH ABG pCO2 ABG pO2 ABG HCO3 ABG Total CO2 ABG O2 Saturation VBG pH 7.290 L VBG pCO2 61 H VBG pO2 69 H VBG HCO3 29 H BUN Glucose Calcium Ur Specific [place] Urine Protein - Diagnostic Findings Chest x-ray: image reviewed (as noted in HPI) Assessment and Plan - Assessment and Plan Acute Hypoxic hypercapnic Respiratory Failure Pneumonia Sepsis Likely COPD Likely GLADYS - will need OP PSG Fluid overload Plan: Pt currently on the vent f18, Vt 500, peep 10, 90%, will cont to wean FIo2 as able, once sats at 60% would start weaning peep. Pt likely with GLADYS and may need OP PSG vs home NIPPV. Currently on a/a q4hr will add solumedrol and pulmicort, BC pending on azithro and rocephin, will get sputum cx. Primary to d/ c azithro and start levaquin. Will need to start nutrition per DH. Fluid overload noted with cardiomegaly and congestion on CXR and BLE edema, awaiting echo results. Primary giving lasix 40 this am and getting BLE Doppler on therapeutic lovenox at this time, if R Heart strain noted on echo will need CTA to r/o PE. Will continue to monitor closely. - Time Spent With Patient Total time spent is greater than 50% in coordination of care (as documented) at patient's floor/unit and/or counseling patient: 25 - 35 minutes <Artur Pineda - Last Filed: 04/03/17 13:05> Exam Vital signs: Temperature 99.6 F 04/03/17 12:00 Pulse Rate 85 04/03/17 12:00 Respiratory Rate 37 H 04/03/17 12:00 Blood Pressure 160/93 H 04/03/17 12:00 Pulse Oximetry 94 04/03/17 12:00 Results - Laboratory Findings CBC and BMP: 04/03/17 04:07 04/03/17 04:07 ABG ABG pH 7.230 (7.350-7.450) L 04/03/17 04:30 ABG pCO2 72 MMHG (34-45) H* 04/03/17 04:30 ABG pO2 131 MMHG (80-100) H 04/03/17 04:30 ABG O2 Saturation 98.0 % (95.0-98.0) 04/03/17 04:30 Abnormal lab findings: Abnormal Labs 04/02/17 04/02/17 04/02/17 13:12 14:15 22:20 WBC RBC Hgb MCV MCHC RDW Std Deviation Neutrophils % (Manual) Band Neutrophils % Lymphocytes % (Manual) Metamyelocytes % Neutrophils # (Manual) Lymphocytes # (Manual) Monocytes # (Manual) ABG pH 7.200 L* 7.285 L ABG pCO2 76 H* 58 H ABG pO2 ABG HCO3 30 H 28 H ABG Total CO2 32.0 H 29 H ABG O2 Saturation 94.0 L VBG pH VBG pCO2 VBG pO2 VBG HCO3 BUN Glucose Calcium Triglycerides Ur Specific [place] >=1.030 H Urine Protein Trace A 04/03/17 04/03/17 04/03/17 04:07 04:07 04:07 WBC 15.6 H RBC 4.23 L Hgb 13.1 L D MCV 101.4 H MCHC 30.5 L RDW Std Deviation 56.3 H Neutrophils % (Manual) 81.0 H Band Neutrophils % 8.0 H Lymphocytes % (Manual) 2.0 L Metamyelocytes % 1.0 H Neutrophils # (Manual) 12.6 H Lymphocytes # (Manual) 0.3 L Monocytes # (Manual) 1.1 H ABG pH ABG pCO2 ABG pO2 ABG HCO3 ABG Total CO2 ABG O2 Saturation VBG pH VBG pCO2 VBG pO2 VBG HCO3 BUN 25.0 H D Glucose 144 H Calcium 8.2 L D Triglycerides 382 H Ur Specific [place] Urine Protein 04/03/17 04/03/17 04:30 07:15 WBC RBC Hgb MCV MCHC RDW Std Deviation Neutrophils % (Manual) Band Neutrophils % Lymphocytes % (Manual) Metamyelocytes % Neutrophils # (Manual) Lymphocytes # (Manual) Monocytes # (Manual) ABG pH 7.230 L ABG pCO2 72 H* ABG pO2 131 H ABG HCO3 30 H ABG Total CO2 32.4 H ABG O2 Saturation VBG pH 7.290 L VBG pCO2 61 H VBG pO2 69 H VBG HCO3 29 H BUN Glucose Calcium Triglycerides Ur Specific [place] Urine Protein Assessment and Plan (1) Acute respiratory failure with hypoxia Status: Acute Assessment and plan: Progressive hypoxemic respiratory failure since admission. Initially was managed on continuous bipap however patient's condition deteriorated and he required intubation and mechanical ventilation. AC/VC+ Vt 500, rate 18, Peep 10 , FiO2 90%. Current SpO2 93%. He is tolerating current vent settings and ABG is improved. We will follow closely, wean peep and FiO2 as tolerated and as condition allows Current Visit: Yes (2) ARDS (adult respiratory distress syndrome) Status: Acute Assessment and plan: due to severe community acquired pneumonia. Check cultures and adjust antibiotics as is appropriate. neb albuterol/iprat scheduled to help with secretion clearance. IV corticosteroids are indicated. IV lasix to maintain fluid status per recommendations. Current Visit: Yes (3) Community acquired pneumonia Status: Acute Assessment and plan: Cultures are negative so far. On empiric antibiotics with Rocephin, Levaquin, Azithromycin. Current Visit: No - Time Spent With Patient Total time spent is greater than 50% in coordination of care (as documented) at patient's floor/unit and/or counseling patient:
[2017-04-03] MEDS ORDERED: FUROSEMIDE 20 MG/2 ML INJECTION IVP ONE (09:52)
--- NOTE | 2017-04-03 10:03 | Progress Note ---
- Date 04/03/17 Subjective: The patient is seen today in CCU. He is sedated and on the ventilator. Overnight , he required increase in FiO2 to 100% and that is now back down to 90%. He is on fentanyl drip and propofol for sedation. Significant other is here and states that he has had problems with edema worsening over the past 8 months. She states the rash in his axilla has been there for about a year. She states that he has sonorous breathing all of the time, even when awake. He has never been tested for sleep apnea or tested for COPD. He does smoke chronically. He also has chronic back pain and takes frequent high doses of ibuprofen and Tylenol. Objective Vital signs: Temperature 97 F 04/03/17 08:15 Pulse Rate 84 04/03/17 08:56 Respiratory Rate 18 04/03/17 08:56 Blood Pressure 152/85 H 04/03/17 08:15 Pulse Oximetry 95 04/03/17 08:56 Rhythm: Sinus Tachycardia Height/Weight/BMI: Height 1.8 m Weight 166.6 kg Body Mass Index 52.4 Comments: MAXIMUM TEMPERATURE 100.7, blood pressure 135/81, O2 sat 93%, respiratory rate in the 30s on the ventilator I&O 1831/1466 GEN-sedated on the ventilator, morbidly obese, lori complexion to his face HEENT-sclera anicteric, pupils are equal, oropharynx is moist, he is orally intubated with an OG in place NECK-the patient has a right IJ CV-regular rate and rhythm CHEST-expiratory wheezes bilaterally. ABD-obese, distended, pitting edema in the lower abdomen, hypoactive bowel sounds -Walker was placed EXT-2+ firm lower extremity edema. NEURO-sedated, unable to assess SKIN-warm and dry, he has a rash that looks like ringworm in the right axilla, chest area Results - Labs CBC & Chem 7: 04/03/17 04:07 04/03/17 04:07 Labs: BNP was normal Troponin on admission normal Lactate is normal, pro-calcitonin yesterday was normal TSH mildly elevated at 5.57 Hemoglobin A1c mildly elevated at 7.1 - ABG Interpretation ABG results: 04/02/17 04/02/17 04/03/17 14:15 22:20 04:30 ABG pH 7.200 L* 7.285 L 7.230 L ABG pCO2 76 H* 58 H 72 H* ABG pO2 85 97 131 H ABG HCO3 30 H 28 H 30 H ABG Total CO2 32.0 H 29 H 32.4 H ABG O2 Saturation 94.0 L 96.0 98.0 ABG Base Excess -0.2 0.0 0.9 VBG pH VBG pCO2 VBG pO2 VBG HCO3 VBG Total CO2 VBG O2 Saturation VBG Base Excess 04/03/17 07:15 ABG pH ABG pCO2 ABG pO2 ABG HCO3 ABG Total CO2 ABG O2 Saturation ABG Base Excess VBG pH 7.290 L VBG pCO2 61 H VBG pO2 69 H VBG HCO3 29 H VBG Total CO2 31.2 VBG O2 Saturation 91.0 VBG Base Excess 1.4 - Echocardiogram Echocardiogram: Echocardiogram is pending EKG shows sinus rhythm with moderate intraventricular conduction delay - Impressions Chest x-ray today on my read and per radiology shows NG tube in place, ET tube with tip at the level of the clavicles, right IJ stable. Lungs remain hypoinflated with bandlike consolidation in the right mid lung and hazy airspace disease throughout the left. Small pleural effusions. No pneumothorax Assessment and Plan (1) Community acquired pneumonia Current visit: No Status: Acute Assessment and Plan: Assessment Acute hypoxic and hypercarbic respiratory failure Sepsis secondary to pneumonia Manifestations: Tachycardia, tachypnea, leukocytosis. Lactate has been normal Community-acquired pneumonia-severe, requiring intubation Anasarca Morbid obesity-BMI 42.0 Diabetes Mellitus Type 2 - A1C 7.1 on admission (new diagnosis) Possible COPD Probable obstructive sleep apnea Chronic back pain with high-dose ibuprofen and Tylenol use Tinea corporis Tobacco dependence Plan Continue ventilator support. Dr. Pineda has been consulted. Broaden antibiotics, add Levaquin. Discontinue azithromycin Start Solu-Medrol 125 mg IV every 6 regarding probable COPD and severe pneumonia Echocardiogram is pending regarding patient's anasarca Check venous Dopplers of the legs to rule out DVT. Check abdominal sonogram to rule out ascites. Dobbhoff placement and initiate tube feeding Sliding scale insulin as needed. Will likely need scheduled insulin with initiation of Solu-Medrol and tube feeding. Give one-time dose Lasix regarding edema. Repeat renal panel this afternoon. Monitor blood pressure closely. Depending upon the results of echocardiogram, may need cardiology consultation. Obtain sputum sample, urine for strep pneumo and legionella antigens. Consider CTA, but await results of echocardiogram and venous Dopplers of the legs. Continue Lovenox treatment dose for now. Greater than 1 hour of critical care time spent seeing and evaluating the patient in determining care plan. Discussed with LANA Moran with Dr. Pineda. - Physician Narrative Narrative: Date: 04/03/17 Time: 0959 Hospital Course Summary Disclaimer: The visit summary below is not to be considered part of the above Progress Note. Hospital Course: Assessment Respiratory insufficiency with hypoxia Sepsis secondary to pneumonia Manifestations: Tachycardia, tachypnea, leukocytosis Community-acquired pneumonia Anasarca Morbid obesity-BMI 42.0 Hyperglycemia-POA Tinea corporis Tobacco dependence 04/02/17 Hospital admission Admit to inpatient status under the care of the hospitalist service, Dr. Lewis attending. It is expected that his stay will exceed 2 overnights given his sepsis secondary to pneumonia and overall condition. SCDs and Lovenox for DVT prophylaxis Urinalysis for laboratory completeness. Repeat CBC and BMP in am to follow leukocytosis, renal function and electrolytes. Schedule echocardiogram to evaluate cardiac structure and function given his anasarca and dyspnea. Oxygen, DuoNeb treatments, Acapella, and guaifenesin for respiratory symptoms. Continue Rocephin and Zithromax initiated and the emergency room. Blood cultures were drawn prior to antibiotic initiation. RT consult tobacco cessation. Terbinafine topically for his tinea corporis Patient wishes to be a full code. Case discussed with Dr. Lewis. Case management will need to assist in finding patient a PCP.
[2017-04-03] MEDS: LEVOFLOXACIN PB 750 MG/150 ML BAG IV SCH (10:47)
[2017-04-03] MEDS: SODIUM CL 3% INHAL.SOLN 15ml NEB AEROSOL PRN (10:55)
--- NOTE | 2017-04-03 11:55 | Ultrasound Report ---
Indication: Lower extremity edema, evaluate for dvt PROCEDURE: US venous doppler LE BI: Encounter: Initial Comparison: None Technique: Color Doppler duplex and grayscale sonographic imaging of both lower extremities was performed. Findings: There is no evidence for acute deep venous thrombosis in either thigh. Specifically, serial graded compression was performed from the inguinal ligament to the popliteal bifurcation, bilaterally, demonstrating appropriate compressibility of the deep venous system. In addition, color and pulsed Doppler demonstrate appropriate spontaneous flow, variation with respiration, and augmentation with calf compression. At the ankle, normal flow is identified in the posterior tibial veins; these vessels are also normal in caliber. Impression: No evidence of acute DVT in either lower limb. .
--- NOTE | 2017-04-03 12:18 | XRay Report ---
Indication: check dobhoff tube placement PROCEDURE: XR KUB: Encounter: Initial Comparison: None Findings: Dobbhoff tube in place with the tip projecting over the prior report region of the stomach. Evaluation is limited due to patient body habitus and exposure technique. Airspace disease in the left base, incompletely evaluated. Impression: Dobbhoff tube tip projects over the pyloric region of the stomach. .
[2017-04-03] MEDS: FentaNYL 1,000 MCG in NS 80 ML IV PRN (12:27)
[2017-04-03] MEDS: INSULIN ASPART 100unit/ml INJECTION SQ PRN ×2 (12:29→18:15)
--- NOTE | 2017-04-03 13:14 | Ultrasound Report ---
Indication: look for ascites PROCEDURE: US abdomen limited: Encounter: Initial Comparison: None Technique: Grayscale sonographic imaging of the four quadrants of the abdomen was performed. Findings/ Impression: No ascites identified by ultrasound. .
[2017-04-03 14:48] VITALS: BMI 51.2
[2017-04-03] MEDS: METHYLPREDNISOLONE SOD SUCC 125mg/2ml INJECTION IVP SCH ×2 (15:36→20:00)
[2017-04-03] MEDS: SODIUM CL 3% INHAL.SOLN 15ml NEB AEROSOL SCH (19:17)
[2017-04-03] MEDS: FUROSEMIDE 40 MG/4 ML INJECTION IVP SCH (20:00)
[2017-04-03] MEDS: BUDESONIDE INH.SOLN 0.5mg/2ml NEB AEROSOL SCH (22:53)
[2017-04-04] MEDS: PROPOFOL 1,000 MG/100 ML VIAL IV PRN ×13 (00:07→22:35)
[2017-04-04] MEDS: INSULIN ASPART 100unit/ml INJECTION SQ PRN ×4 (00:15→18:19)
[2017-04-04] MEDS: ENOXAPARIN 100 MG/ML INJECTION SQ SCH (01:04)
[2017-04-04] MEDS: METHYLPREDNISOLONE SOD SUCC 125mg/2ml INJECTION IVP SCH ×4 (03:04→20:39)
[2017-04-04] MEDS: ALBUTEROL/IPRATROPIUM 2.5mg-0.5mg/3ml NEB AEROSOL SCH ×6 (03:05→23:35)
[2017-04-04] MEDS: FentaNYL 1,000 MCG in NS 80 ML IV PRN ×2 (04:24→14:42)
[2017-04-04] MEDS: SALINE FLUSH 10ml SYRINGE IV PRN ×2 (04:35→20:34)
[2017-04-04] MEDS: BUDESONIDE INH.SOLN 0.5mg/2ml NEB AEROSOL SCH ×2 (07:05→19:05)
[2017-04-04] MEDS: SODIUM CL 3% INHAL.SOLN 15ml NEB AEROSOL SCH ×3 (07:05→21:20)
[2017-04-04] MEDS: CEFTRIAXONE 1 G in NS 100 ML IV SCH (08:27)
[2017-04-04] MEDS: FUROSEMIDE 40 MG/4 ML INJECTION IVP SCH ×2 (08:33→20:34)
[2017-04-04] MEDS: TERFINAFINE 1% CREAM 12 G TUBE TOP SCH ×2 (08:34→20:40)
[2017-04-04] MEDS: PANTOPRAZOLE 40 MG INJECTION IVP SCH ×2 (08:34→20:33)
--- NOTE | 2017-04-04 08:34 | XRay Report ---
Indication: pneumonia, intubated PROCEDURE: XR chest 1V: Encounter: Initial Comparison: April 03, 2017 Findings: Endotracheal tube and nasogastric tubes appear stable. Right IJ line is again noted. Persistent bandlike consolidation in the right mid lung along the minor fissure. Obscuration of the left hemidiaphragm with hazy groundglass opacity in the left lung. No pneumothorax. Probable small left effusion. Cardiac silhouette is moderately enlarged but unchanged. Mediastinal contours are stable. Impression: Overall stable appearance of the chest. .
--- NOTE | 2017-04-04 08:35 | XRay Report ---
Indication: dobhoff placement PROCEDURE: XR KUB: Encounter: Initial Comparison: April 03, 2017 Findings: Motion artifact. Dobbhoff tube appears to have migrated distally with the tip now projecting over the third portion of the duodenum although this is very difficult to visualize on this exposure. Minimal bowel gas visible. Fluid-filled bowel loops cannot be excluded. Left basilar airspace disease. Impression: Dobbhoff tube tip appears to project over the third portion of the duodenum. .
[2017-04-04] MEDS: GUAIFENESIN/D-METHORPHAN 600mg/30mg TABLET PO SCH ×2 (09:00→20:40)
--- NOTE | 2017-04-04 09:19 | Pulmonology Progress Note ---
<Luisa Green D - Last Filed: 04/04/17 09:45> Subjective Principal diagnosis: Pna, sepsis Interval history: Pt currently sedated on the vent with propofol and fentanyl, no distress noted. Exam Vital signs: Temperature 99.2 F 04/04/17 08:45 Pulse Rate 79 04/04/17 08:54 Respiratory Rate 23 04/04/17 08:54 Blood Pressure 149/81 H 04/04/17 08:45 Pulse Oximetry 93 04/04/17 08:54 - Constitutional no acute distress, morbidly obese - Routine HEENT Exam Head: Present: normocephalic, atraumatic Eye: Present: PERRL - Routine Neck Exam Present: supple, trachea midline - Routine Respiratory Exam Present: decreased breath sounds, rhonchi, wheezes - Routine Cardiovascular Exam Present: RRR, S1, S2, no murmur - Routine Abdominal Exam Present: firm - Routine Extremities Exam Present: edema, full ROM - Routine Skin Exam Present: intact, dry, rash - Routine Neurological Exam sedated on vent - Routine Psychiatric Exam Present: unable to assess - Urinary Catheter Management Urethral Cath placed during this visit: yes Reason for continuing: Accurate I&O/Aggressive Diuresis Insertion date: 04/03/17 Insertion time: 22:20 Assessment and Plan - Assessment and Plan Acute Hypoxic hypercapnic Respiratory Failure CAP Pneumonia Sepsis/ARDS Likely COPD Likely GLDAYS - will need OP PSG Fluid overload Plan: Pt currently on the vent f18, Vt 500, peep 10, 100%, sats 91-92%, may require increase in peep to keep sats >90%. Pt likely with GLADYS and may need OP PSG vs home NIPPV. Currently on a/a q4hr, pulmicort BID, solumedrol 80 q6, 3% BID, will increase to q8, BC NTD, sputum cx with prelim growth but stain NTD on rocephin and levaquin, WBC stable, bands improved to 4. Currently on TF per DH, on IVF 75ml/hr. Fluid overload noted with cardiomegaly and congestion on CXR and BLE edema, awaiting echo results, preliminary noted EF 60%, Diastolic Heart Failure, PAP 40. On lasix 40mg BID, I/O -2.3L. BLE Doppler neg on therapeutic lovenox at this time, no R Heart strain noted on prelim echo will await final read, could likely change lovenox to prophylactic dose. - Time Spent With Patient Total time spent is greater than 50% in coordination of care (as documented) at patient's floor/unit and/or counseling patient: 25 - 35 minutes <Artur Pineda - Last Filed: 04/04/17 10:23> Exam Vital signs: Temperature 99.2 F 04/04/17 08:45 Pulse Rate 79 04/04/17 08:54 Respiratory Rate 23 04/04/17 08:54 Blood Pressure 149/81 H 04/04/17 08:45 Pulse Oximetry 93 04/04/17 08:54 - Urinary Catheter Management Urethral Cath placed during this visit: no Assessment and Plan (1) Acute respiratory failure with hypoxia Status: Acute Assessment and plan: Remains on vent AC/VC+. Vt 500, rate 18. Minute Vent 10 lpm. Peak pressures 31-35. Repeat ABG today Current Visit: Yes (2) ARDS (adult respiratory distress syndrome) Status: Acute Assessment and plan: As above, related to severe pneumonia. monitor CXR. continue empiric steroids, abx, diuretics Current Visit: Yes (3) Community acquired pneumonia Status: Acute Assessment and plan: early growth on sputum cultures. continue current regimen with rocephin/ levaquin. await further info. WBC's 15.5, Bands have decreased. Current Visit: No - Time Spent With Patient Total time spent is greater than 50% in coordination of care (as documented) at patient's floor/unit and/or counseling patient: 25 - 35 minutes (Dicussed case with nurse, attending.)
--- NOTE | 2017-04-04 09:57 | Echocardiogram ---
DATE OF PROCEDURE April 03, [address] Wally Lewis This is a two-dimensional echo with spectral Doppler, color-flow and M-mode. It was obtained in a patient with anasarca and dyspnea. Left atrial dimension is increased. Left ventricular end-diastolic dimension is normal. Left ventricle wall thickness is increased. LV systolic function is normal with ejection fraction of 62%. Right atrium is normal. Right ventricle is normal. Aortic root dimension is normal. Mitral valve is morphologically normal with trace of mitral regurgitation aorta. Aortic valve appears to be normal. Tricuspid valve shows trace of tricuspid regurgitation with mild pulmonary hypertension with estimated pulmonary artery systolic pressure of 41. Pulmonary valve shows no pulmonary insufficiency. There is no pericardial effusion. IMPRESSION 1. Normal LV systolic function with ejection fraction of 62%. 2. Left atrial dilation. 3. Left ventricular hypertrophy. 4. Trace of mitral regurgitation. 5. Trace of tricuspid regurgitation with mild pulmonary hypertension with estimated pulmonary artery systolic pressure of 41. MTDD
[2017-04-04] MEDS: LEVOFLOXACIN PB 750 MG/150 ML BAG IV SCH (10:33)
[2017-04-04] MEDS ORDERED: INSULIN GLARGINE 100unit/ml INJECTION SQ SCH (11:30)
[2017-04-04] MEDS ORDERED: AMLODIPINE 2.5 MG TABLET PO SCH (11:45)
--- NOTE | 2017-04-04 11:52 | Progress Note ---
- Date 04/04/17 Subjective: The patient was seen in his room in CCU. He is accompanied by his significant other. He continues to be intubated with mechanical ventilation and FiO2 is now at 100%. He has had good urine output with Lasix. He is sedated on propofol and fentanyl. Blood pressures have been elevated in the 130s to currently 169/91. He is tolerating his tube feedings without difficulties. Objective Vital signs: Temperature 99.2 F 04/04/17 08:45 Pulse Rate 79 04/04/17 11:10 Respiratory Rate 22 04/04/17 11:10 Blood Pressure 149/81 H 04/04/17 08:45 Pulse Oximetry 91 04/04/17 11:10 Rhythm: Sinus Tachycardia Height/Weight/BMI: Height 1.8 m Weight 159.6 kg Body Mass Index 51.2 Comments: MAXIMUM TEMPERATURE is 99.6. Current blood pressure 169/91, pulse 82, O2 sat 93 % on the ventilator with FiO2 of 100%. Cumulative I&O 5423/8000 GEN-sedated on the ventilator HEENT-Dobbhoff tube in the nose, oral ET tube and OG NECK-IJ in the right neck CV-regular rate and rhythm CHEST-clear anteriorly ABD-soft, obese, hypoactive bowel sounds, continues to have some pitting edema in his lower abdomen/pannus area -Walker in place with good urine output EXT-2 + lower extremity edema, SCDs are on NEURO-unable to assess due to sedation SKIN-warm, sweaty under his SCDs, he has what looks like ringworm fungal infection in his right axilla/chest area Results - Labs CBC & Chem 7: 04/04/17 04:30 04/04/17 04:30 Labs: Bands are down to 4 from 8. Hemoglobin and white cell count are stable. Blood sugars are ranging from 187-233 since starting tube feeding Microbiology Results: Microbiology 04/03/17 11:30 Sputum, Suctioned Gram Stain - Final 04/03/17 11:30 Sputum, Suctioned Sputum Culture - Preliminary Early growth 04/03/17 10:38 Urine Legionella Urinary Antigen - Final 04/03/17 10:38 Urine Streptococcus pneumoniae Antigen (M - Final Urine for strep pneumo and legionella antigens are negative Blood cultures from admission are negative after 2 days - ABG Interpretation ABG results: 04/02/17 04/02/17 04/03/17 14:15 22:20 04:30 ABG pH 7.200 L* 7.285 L 7.230 L ABG pCO2 76 H* 58 H 72 H* ABG pO2 85 97 131 H ABG HCO3 30 H 28 H 30 H ABG Total CO2 32.0 H 29 H 32.4 H ABG O2 Saturation 94.0 L 96.0 98.0 ABG Base Excess -0.2 0.0 0.9 VBG pH VBG pCO2 VBG pO2 VBG HCO3 VBG Total CO2 VBG O2 Saturation VBG Base Excess 04/03/17 04/04/17 07:15 10:36 ABG pH 7.380 ABG pCO2 60 H* ABG pO2 67 L ABG HCO3 36 H ABG Total CO2 37.3 H ABG O2 Saturation 93.0 L ABG Base Excess 8.4 H VBG pH 7.290 L VBG pCO2 61 H VBG pO2 69 H VBG HCO3 29 H VBG Total CO2 31.2 VBG O2 Saturation 91.0 VBG Base Excess 1.4 - Echocardiogram Echocardiogram: Echocardiogram IMPRESSION 1. Normal LV systolic function with ejection fraction of 62%. 2. Left atrial dilation. 3. Left ventricular hypertrophy. 4. Trace of mitral regurgitation. 5. Trace of tricuspid regurgitation with mild pulmonary hypertension with estimated pulmonary artery systolic pressure of 41. - Impressions Chest x-ray today is overall stable KUB today shows Dobbhoff tip projected over the third portion of the duodenum Assessment and Plan (1) Community acquired pneumonia Current visit: No Status: Acute Assessment and Plan: Assessment Acute hypoxic and hypercarbic respiratory failure ARDS Sepsis secondary to pneumonia Manifestations: Tachycardia, tachypnea, leukocytosis. Lactate has been normal Community-acquired pneumonia-severe, requiring intubation Anasarca Echocardiogram revealed normal EF, left ventricular hypertrophy, PA pressure 41 with mild pulmonary hypertension Morbid obesity-BMI 42.0 Diabetes Mellitus Type 2 - A1C 7.1 on admission (new diagnosis) Possible COPD Probable obstructive sleep apnea Chronic back pain with high-dose ibuprofen and Tylenol use Tinea corporis Tobacco dependence Plan The patient continues to require mechanical ventilation and is on 100% FiO2 regarding his ARDS and pneumonia. Continue ventilator support - Dr. Pineda is following. His help is greatly appreciated. Continue Levaquin initiated 04/03/2017 and Rocephin initiated 04/02/2017 Continue Solu-Medrol Discussed with Dr. Pineda, will change Lovenox to prophylactic dose. Venous Doppler of the legs were negative for DVT. No signs of right heart strain on echocardiogram. Advance tube feedings Nutren luminary 1.5 to goal of 70 ML's per hour. Start free water 400 ML's every 8 hours. DC IV fluids Vishal blood pressure off of IV fluids. May need to initiate antihypertensive Start Lantus 10 units subcutaneous daily. Increase to medium dose sliding scale insulin. Continue Lasix 40 mg IV every 12. Patient is diuresing well. Check CBC and renal panel tomorrow. Chest x-ray tomorrow. Assess with Dr. Pineda, the patient's significant other, and the patient's nurse. Reason 45 minutes of critical care time spent seeing and evaluating the patient in determining care plan. - Physician Narrative Narrative: Date: 04/04/17 Time: 1145 Hospital Course Summary Disclaimer: The visit summary below is not to be considered part of the above Progress Note. Hospital Course: Assessment Respiratory insufficiency with hypoxia Sepsis secondary to pneumonia Manifestations: Tachycardia, tachypnea, leukocytosis Community-acquired pneumonia Anasarca Morbid obesity-BMI 42.0 Hyperglycemia-POA Tinea corporis Tobacco dependence 04/02/17 Hospital admission Admit to inpatient status under the care of the hospitalist service, Dr. Lewis attending. It is expected that his stay will exceed 2 overnights given his sepsis secondary to pneumonia and overall condition. SCDs and Lovenox for DVT prophylaxis Urinalysis for laboratory completeness. Repeat CBC and BMP in am to follow leukocytosis, renal function and electrolytes. Schedule echocardiogram to evaluate cardiac structure and function given his anasarca and dyspnea. Oxygen, DuoNeb treatments, Acapella, and guaifenesin for respiratory symptoms. Continue Rocephin and Zithromax initiated and the emergency room. Blood cultures were drawn prior to antibiotic initiation. RT consult tobacco cessation. Terbinafine topically for his tinea corporis Patient wishes to be a full code. Case discussed with Dr. Lewis. Case management will need to assist in finding patient a PCP. 04/04/17 12:03 Plan The patient continues to require mechanical ventilation and is on 100% FiO2 regarding his ARDS and pneumonia. Continue ventilator support - Dr. Pineda is following. His help is greatly appreciated. Continue Levaquin initiated 04/03/2017 and Rocephin initiated 04/02/2017 Continue Solu-Medrol Discussed with Dr. Pineda, will change Lovenox to prophylactic dose. Venous Doppler of the legs were negative for DVT. No signs of right heart strain on echocardiogram. Advance tube feedings Nutren luminary 1.5 to goal of 70 ML's per hour. Start free water 400 ML's every 8 hours. DC IV fluids Vishal blood pressure off of IV fluids. May need to initiate antihypertensive Start Lantus 10 units subcutaneous daily. Increase to medium dose sliding scale insulin. Continue Lasix 40 mg IV every 12. Patient is diuresing well. Check CBC and renal panel tomorrow. Chest x-ray tomorrow. Assess with Dr. Pineda, the patient's significant other, and the patient's nurse.
[2017-04-04] MEDS: ENOXAPARIN 40 MG/0.4 ML INJECTION SQ SCH (14:46)
[2017-04-04] MEDS: NS 1,000 ML IV SCH (16:04)
[2017-04-05] MEDS: INSULIN ASPART 100unit/ml INJECTION SQ PRN ×4 (00:31→23:58)
[2017-04-05] MEDS: PROPOFOL 1,000 MG/100 ML VIAL IV PRN ×13 (00:32→23:44)
[2017-04-05] MEDS: FentaNYL 1,000 MCG in NS 80 ML IV PRN ×3 (00:56→17:40)
[2017-04-05] MEDS: METHYLPREDNISOLONE SOD SUCC 125mg/2ml INJECTION IVP SCH ×3 (02:34→17:38)
[2017-04-05] MEDS: SODIUM CL 3% INHAL.SOLN 15ml NEB AEROSOL SCH ×4 (03:27→21:30)
[2017-04-05] MEDS: ALBUTEROL/IPRATROPIUM 2.5mg-0.5mg/3ml NEB AEROSOL SCH ×6 (03:28→23:25)
[2017-04-05] MEDS: SALINE FLUSH 10ml SYRINGE IV PRN ×3 (04:02→21:25)
[2017-04-05] MEDS: REFRESH CLASSIC Eye Drops 0.4ml EACH EYE PRN (04:36)
[2017-04-05] MEDS: BUDESONIDE INH.SOLN 0.5mg/2ml NEB AEROSOL SCH ×2 (06:49→19:10)
[2017-04-05] MEDS: FUROSEMIDE 40 MG/4 ML INJECTION IVP SCH ×3 (08:27→21:22)
[2017-04-05] MEDS: ENOXAPARIN 40 MG/0.4 ML INJECTION SQ SCH (08:27)
[2017-04-05] MEDS: CEFTRIAXONE 1 G in NS 100 ML IV SCH (08:27)
[2017-04-05] MEDS: GUAIFENESIN/D-METHORPHAN 600mg/30mg TABLET PO SCH ×2 (08:29→22:15)
--- NOTE | 2017-04-05 08:57 | Progress Note ---
- Date 04/05/17 Subjective: The patient is seen in CCU. He remains on the ventilator with FiO2 of 100%. Blood pressure has been elevated in the range of 150s to 170s with a rare 180 or 190. Tube feeding Dobbhoff has been increased to 70 ML's, but now his NG output is a creamy green color instead of bright green. Urine output remains good. Objective Vital signs: Temperature 98.9 F 04/05/17 07:39 Pulse Rate 82 04/05/17 07:30 Respiratory Rate 13 04/05/17 07:30 Blood Pressure 159/85 H 04/05/17 07:30 Pulse Oximetry 96 04/05/17 07:30 Rhythm: Sinus Tachycardia Height/Weight/BMI: Height 1.8 m Weight 159.6 kg Body Mass Index 51.2 Comments: I&O yesterday 3155/4448 Cumulative I&O 8682/11,975 -4935 overall Weight today is pending The patient remains on the ventilator with O2 sat of 96% and he is on her percent FiO2. Blood pressure 146/77, respiratory rate 30, afebrile GEN-sedated on the vent on fentanyl and propofol. Carlos complexion especially of his face. HEENT-sedated on the ventilator, orally intubated, OG in place, Dobbhoff in place NECK-right IJ CV-regular rate and rhythm CHEST-scattered coarse breath sounds, occasional wheeze in the right lung ABD-obese, soft, occasional bowel sounds, continues to have some mild edema in his lower abdomen/pannus -Walker in place EXT-1 glide edema, +1 Edema, 2+ pedal edema, +1 bilateral edema in hands NEURO-unable to assess secondary to sedation SKIN-diaphoretic, Carlos complexion to his face has been present the past 3 day. Rash which looks like ringworm on his right chest and axillary region. Results - Labs CBC & Chem 7: 04/05/17 04:00 04/05/17 08:33 Labs: Recheck BMP was morning is similar but potassium is up to 5.5. Neutrophils are 91%, bands 0 Blood sugars are ranging from 197-279 Microbiology Results: Microbiology 04/03/17 11:30 Sputum, Suctioned Gram Stain - Final 04/03/17 11:30 Sputum, Suctioned Sputum Culture - Preliminary Early growth 04/03/17 10:38 Urine Legionella Urinary Antigen - Final 04/03/17 10:38 Urine Streptococcus pneumoniae Antigen (M - Final Discussed with microbiology tech, minimal growth from sputum results are pending - ABG Interpretation ABG results: 04/04/17 10:36 ABG pH 7.380 ABG pCO2 60 H* ABG pO2 67 L ABG HCO3 36 H ABG Total CO2 37.3 H ABG O2 Saturation 93.0 L ABG Base Excess 8.4 H - Imaging and Cardiology Chest x-ray Status: image reviewed by me (chest x-ray shows bilateral low lung volumes with worsening lung aeration compared to 04/04/2017) Assessment and Plan (1) Community acquired pneumonia Current visit: No Status: Acute Assessment and Plan: Assessment Acute hypoxic and hypercarbic respiratory failure-requiring mechanical ventilation, FiO2 turned down to 95% ARDS Sepsis secondary to pneumonia Manifestations: Tachycardia, tachypnea, leukocytosis. Lactate has been normal Community-acquired pneumonia-severe, requiring intubation Anasarca Echocardiogram revealed normal EF, left ventricular hypertrophy, PA pressure 41 with mild pulmonary hypertension Morbid obesity-BMI 42.0 Diabetes Mellitus Type 2 - A1C 7.1 on admission (new diagnosis) Possible COPD Probable obstructive sleep apnea Chronic back pain with high-dose ibuprofen and Tylenol use Tinea corporis Tobacco dependence Hyperkalemia with potassium of 5.5 of undetermined etiology. He is not receiving any potassium other than what is in his tube feedings. He is on IV Lasix. NG output today appears to have tube feed present. Plan The patient continues to require mechanical ventilation and is now on 95% FiO2 regarding his ARDS and pneumonia. Continue ventilator support per Dr. Pineda Continue Levaquin initiated 04/03/2017 and Rocephin initiated 04/02/2017. Continue Solu-Medrol Regarding hyperkalemia, will try to change to feeding to a renal tube feeds. Check ABG. (7.32/79/103 on 95% FiO2) Recheck basic metabolic profile later today. May need to increase fluids followed by diuresis for hyperkalemia Increase Lantus to 20 units subcutaneous daily for hyperglycemia. Increase sliding scale insulin to high dose Start Reglan and Dulcolax suppositories to stimulate GI tract. Decrease tube feed rate to 50 ML's for now. Greater than 40 minutes critical care time. DVT Prophylaxis: Lovenox GI Prophylaxis: Protonix Resuscitation Status: Full Code - Physician Narrative Physician: Laly Hernández MD Narrative: Date: 04/05/17 Time: 0847 Hospital Course Summary Disclaimer: The visit summary below is not to be considered part of the above Progress Note. Hospital Course: Assessment Respiratory insufficiency with hypoxia Sepsis secondary to pneumonia Manifestations: Tachycardia, tachypnea, leukocytosis Community-acquired pneumonia Anasarca Morbid obesity-BMI 42.0 Hyperglycemia-POA Tinea corporis Tobacco dependence 04/02/17 Hospital admission Admit to inpatient status under the care of the hospitalist service, Dr. Lewis attending. It is expected that his stay will exceed 2 overnights given his sepsis secondary to pneumonia and overall condition. SCDs and Lovenox for DVT prophylaxis Urinalysis for laboratory completeness. Repeat CBC and BMP in am to follow leukocytosis, renal function and electrolytes. Schedule echocardiogram to evaluate cardiac structure and function given his anasarca and dyspnea. Oxygen, DuoNeb treatments, Acapella, and guaifenesin for respiratory symptoms. Continue Rocephin and Zithromax initiated and the emergency room. Blood cultures were drawn prior to antibiotic initiation. RT consult tobacco cessation. Terbinafine topically for his tinea corporis Patient wishes to be a full code. Case discussed with Dr. Lewis. Case management will need to assist in finding patient a PCP. 04/04/17 12:03 Plan The patient continues to require mechanical ventilation and is on 100% FiO2 regarding his ARDS and pneumonia. Continue ventilator support - Dr. Pineda is following. His help is greatly appreciated. Continue Levaquin initiated 04/03/2017 and Rocephin initiated 04/02/2017 Continue Solu-Medrol Discussed with Dr. Pineda, will change Lovenox to prophylactic dose. Venous Doppler of the legs were negative for DVT. No signs of right heart strain on echocardiogram. Advance tube feedings Nutren luminary 1.5 to goal of 70 ML's per hour. Start free water 400 ML's every 8 hours. DC IV fluids Vishal blood pressure off of IV fluids. May need to initiate antihypertensive Start Lantus 10 units subcutaneous daily. Increase to medium dose sliding scale insulin. Continue Lasix 40 mg IV every 12. Patient is diuresing well. Check CBC and renal panel tomorrow. Chest x-ray tomorrow. Assess with Dr. Pineda, the patient's significant other, and the patient's nurse. 04/05/17 09:31 Plan The patient continues to require mechanical ventilation and is now on 95% FiO2 regarding his ARDS and pneumonia. Continue ventilator support per Dr. Pineda Continue Levaquin initiated 04/03/2017 and Rocephin initiated 04/02/2017. Continue Solu-Medrol Regarding hyperkalemia, will try to change to feeding to a renal tube feeds. Check ABG. (7.32/79/103 on 95% FiO2) Recheck basic metabolic profile later today. May need to increase fluids followed by diuresis for hyperkalemia Increase Lantus to 20 units subcutaneous daily for hyperglycemia. Increase sliding scale insulin to high dose Start Reglan and Dulcolax suppositories to stimulate GI tract. Decrease tube feed rate to 50 ML's for now. Greater than 40 minutes critical care time.
[2017-04-05] MEDS ORDERED: ENOXAPARIN 40 MG/0.4 ML INJECTION SQ SCH (09:00)
[2017-04-05] MEDS: PANTOPRAZOLE 40 MG INJECTION IVP SCH ×2 (09:31→21:24)
[2017-04-05] MEDS: INSULIN GLARGINE 100unit/ml INJECTION SQ SCH (09:32)
[2017-04-05] MEDS: LEVOFLOXACIN PB 750 MG/150 ML BAG IV SCH ×2 (09:33→11:13)
[2017-04-05] MEDS: TERFINAFINE 1% CREAM 12 G TUBE TOP SCH ×2 (09:33→22:15)
[2017-04-05] MEDS ORDERED: NS 1,000 ML IV SCH (09:45)
[2017-04-05] MEDS: METOCLOPRAMIDE 10mg/2ml INJECTION IVP SCH ×3 (10:41→21:25)
--- NOTE | 2017-04-05 13:22 | Pulmonology Progress Note ---
Subjective Principal diagnosis: Pna, sepsis Interval history: Pt currently sedated on the vent with propofol and fentanyl, no distress noted. TF's currently on hold. Formula being changed due to hyperkalemia Remains on vent. AC/VC+, Vt 500, rate 18, Peep 12, FiO2 100%. Difficulty with helicopter pilot balloon this AM. ETT was secured and airway is patent now. Staff reports minimal ETT secretions, moderate oral secretions Family at bedside. Questions answered. Exam Vital signs: Temperature 98.7 F 04/05/17 12:00 Pulse Rate 77 04/05/17 12:38 Respiratory Rate 32 H 04/05/17 12:00 Blood Pressure 161/86 H 04/05/17 12:00 Pulse Oximetry 92 04/05/17 12:00 - Constitutional morbidly obese Comments: sedated, on mechanical ventilation - Routine HEENT Exam Head: Present: normocephalic, atraumatic Eye: Absent: conjunctival icterus - Routine Neck Exam Present: supple - Routine Respiratory Exam Present: patient mechanically ventilated, rhonchi. Absent: accessory muscle use - Routine Cardiovascular Exam Present: RRR - Routine Abdominal Exam Present: soft, distended. Absent: guarding - Routine Extremities Exam Present: edema. Absent: cyanosis, clubbing - Urinary Catheter Management Urethral Cath placed during this visit: yes Insertion date: 04/02/17 Insertion time: 22:20 Assessment and Plan (1) Acute respiratory failure with hypoxia Status: Acute Assessment and plan: Gianni remains on [facility] Vent with high FiO2 and Peep. ETT is secure and patent. He is being supported appropriately and all reasonable therapies are being given. His status is unchanged and he still required the vent support at this time Continue to monitor triglycerides while on propofol. Recheck triglycerides and BNP. Wean FIO2 as tolerated Current Visit: Yes (2) ARDS (adult respiratory distress syndrome) Status: Acute Assessment and plan: Low Vt strategy. Continue moderate PEEP. IV lasix daily to avoid fluid overload, monitor daily renal function. This appears to be a result of severe pneumonia decrease methylpred dose Current Visit: Yes (3) Community acquired pneumonia Status: Acute Assessment and plan: on empiric antibiotics including ceftriaxone, levaquin WBC up to 19 k, though without bands. Possible increase due to steroids. check procalcitonin, repeat CBC in AM Current Visit: No - Assessment and Plan Acute Hypoxic hypercapnic Respiratory Failure CAP Pneumonia Sepsis/ARDS Likely COPD Likely GLADYS - will need OP PSG Fluid overload Plan: Pt currently on the vent f18, Vt 500, peep 10, 100%, sats 91-92%, may require increase in peep to keep sats >90%. Pt likely with GLADYS and may need OP PSG vs home NIPPV. Currently on a/a q4hr, pulmicort BID, solumedrol 80 q6, 3% BID, will increase to q8, BC NTD, sputum cx with prelim growth but stain NTD on rocephin and levaquin, WBC stable, bands improved to 4. Currently on TF per , on IVF 75ml/hr. Fluid overload noted with cardiomegaly and congestion on CXR and BLE edema, awaiting echo results, preliminary noted EF 60%, Diastolic Heart Failure, PAP 40. On lasix 40mg BID, I/O -2.3L. BLE Doppler neg on therapeutic lovenox at this time, no R Heart strain noted on prelim echo will await final read, could likely change lovenox to prophylactic dose. - Time Spent With Patient Total time spent is greater than 50% in coordination of care (as documented) at patient's floor/unit and/or counseling patient: 25 - 35 minutes
[2017-04-05] MEDS: BISACODYL 10 MG SUPPOSITORY RECTALLY SCH ×2 (13:25→23:23)
[2017-04-06] MEDS: METHYLPREDNISOLONE SOD SUCC 125mg/2ml INJECTION IVP SCH ×3 (00:49→18:17)
[2017-04-06] MEDS: PROPOFOL 1,000 MG/100 ML VIAL IV PRN ×4 (01:44→06:33)
[2017-04-06] MEDS: FentaNYL 1,000 MCG in NS 80 ML IV PRN ×3 (03:03→18:47)
[2017-04-06] MEDS: METOCLOPRAMIDE 10mg/2ml INJECTION IVP SCH ×4 (03:03→20:59)
[2017-04-06] MEDS: ALBUTEROL/IPRATROPIUM 2.5mg-0.5mg/3ml NEB AEROSOL SCH ×6 (03:35→23:55)
[2017-04-06] MEDS: SODIUM CL 3% INHAL.SOLN 15ml NEB AEROSOL SCH ×4 (03:39→23:55)
[2017-04-06] MEDS: INSULIN ASPART 100unit/ml INJECTION SQ PRN ×2 (05:59→20:31)
[2017-04-06] MEDS: BISACODYL 10 MG SUPPOSITORY RECTALLY SCH ×2 (08:30→20:53)
[2017-04-06] MEDS ORDERED: ENOXAPARIN - PHARMACY CONSULT MC ONE (09:15)
[2017-04-06] MEDS: BUDESONIDE INH.SOLN 0.5mg/2ml NEB AEROSOL SCH ×2 (09:22→19:20)
[2017-04-06] MEDS ORDERED: MIDAZOLAM IVP ONE ×4 (09:30→15:00)
[2017-04-06] MEDS ORDERED: NS IVP ONE ×2 (09:30→14:45)
--- NOTE | 2017-04-06 09:40 | Progress Note ---
- Date 04/06/17 Subjective: The patient had a CODE BLUE event at approximately 8:00 this morning. He had just undergone a chest x-ray and the upper portion of his KUB, then the nurse noted that he suddenly had bradycardia down into the 20s and she initiated chest compressions. She states she gave approximately 3 compressions and heart rate improved. On my arrival heart rate was in the normal range. Blood pressure immediately post event was 165/72 and on recheck 158/74. O2 sats on my arrival were in the low 80s but improved to 89-92. He remained on the ventilator with FiO2 of 100%. The nurse had not noticed any problems prior to his sudden bradycardia. No abnormal events were noted overnight. I did note on reviewing his vital signs that blood pressures were lower (120s to 130s systolic instead of 150s to 170s systolic) and heart rate was lower ( 60s to 70s instead of 70s to 90s) starting at 4:30 this morning. Objective Vital signs: Temperature 98.3 F 04/05/17 16:30 Pulse Rate 68 04/06/17 07:15 Respiratory Rate 18 04/06/17 07:15 Blood Pressure 126/60 04/06/17 07:15 Pulse Oximetry 93 04/06/17 07:15 Rhythm: Sinus Tachycardia Height/Weight/BMI: Height 1.8 m Weight 159.6 kg Body Mass Index 51.2 Comments: Currently, heart rate 82 and regular. Blood pressure 150/66. O2 sat 93% on the ventilator with FiO2 of 100%. He has been afebrile. I&O yesterday 4.3 L/5.6 L Cumulative I&O since admission is -5.4 L GEN-sedated on the ventilator. Appears comfortable. Continues to have lori complexion of his face HEENT-sclera anicteric, pupils are equal and reactive. Dobbhoff present in the nares. He is orally intubated with an OG in place. NECK-right IJ in place CV-regular rate and rhythm CHEST-clear anteriorly ABD-off, obese, hypoactive bowel sounds, edema in his lower pannus appears to have resolved -Walker in place with good urine output. Urine appears normal in color EXT-2+ pedal edema, trace pretibial edema, +1 edema in the medial thighs. Overall edema is improving NEURO-unable to assess SKIN-warm, diaphoretic which has been his baseline here, rash in his 8 axillary region and chest which appears to be ringworm Results - Labs CBC & Chem 7: 04/06/17 08:15 04/06/17 08:15 Labs: White count is 13.6 down from 19.1 yesterday. Bands are 0%. Neutrophils are 77% down from 91% yesterday. Lactate is elevated at 3.0. Magnesium is 2.6 Troponin is less than 0.012 Phosphorus is normal at 3.9 ProBNP is normal at 150 D-dimer is elevated at 555 Microbiology Results: Microbiology 04/03/17 11:30 Sputum, Suctioned Gram Stain - Final 04/03/17 11:30 Sputum, Suctioned Sputum Culture - Final Normal Respiratory Mayelin 04/03/17 10:38 Urine Legionella Urinary Antigen - Final 04/03/17 10:38 Urine Streptococcus pneumoniae Antigen (M - Final Blood cultures negative 4 days drawn on day of admission- - ABG Interpretation ABG results: 04/04/17 04/05/17 04/06/17 10:36 09:11 08:12 ABG pH 7.380 7.320 L 7.360 ABG pCO2 60 H* 79 H* 78 H* ABG pO2 67 L 103 H 70 L ABG HCO3 36 H 41 H 44 H ABG Total CO2 37.3 H 43.1 H 46.5 H ABG O2 Saturation 93.0 L 97.0 93.0 L ABG Base Excess 8.4 H 11.5 H 15.1 H - Impressions EKG obtained post event shows sinus rhythm with rate of 87 Chest x-ray this morning prior to the blue shows bilateral perihilar right upper lobe and right middle lobe infiltrates representing edema versus pneumonia. By basilar right middle lobe and lingular nonspecific infiltrates and consolidation of present, consistent with atelectasis or pneumonia. Possible small bilateral pleural effusions. No pneumothorax. ET tube is above the brenden. I have reviewed the chest x-ray and agree. Upper portion of the KUB is pending. We were unable to get the lower portion of his KUB Assessment and Plan (1) Community acquired pneumonia Current visit: No Status: Acute Assessment and Plan: Assessment CODE BLUE/bradycardia versus short lasting asystole -patient received chest compressions 3 -EKG and troponin post event were normal Elevated d-dimer 555 Acute hypoxic and hypercarbic respiratory failure-requiring mechanical ventilation, FiO2 100% ARDS Community-acquired pneumonia-severe, requiring intubation Sepsis secondary to pneumonia on admission Manifestations: Tachycardia, tachypnea, leukocytosis. Lactate normal on admissionAnasarca Lactate postcode blue is elevated at 3.0. He remains afebrile. White count is down. Bands are 0. Blood pressure has not been low. Echocardiogram revealed normal EF, left ventricular hypertrophy, PA pressure 41 with mild pulmonary hypertension-BNP today is normal Morbid obesity-BMI 42.0 Diabetes Mellitus Type 2 - A1C 7.1 on admission (new diagnosis)-patient remains hyperglycemic despite increase in insulin. Possible COPD Probable obstructive sleep apnea Chronic back pain with high-dose ibuprofen and Tylenol use Tinea corporis Tobacco dependence Hyperkalemia with potassium of 5.5 of undetermined etiology. He is not receiving any potassium other than what is in his tube feedings. He is on IV Lasix. NG output today appears to have tube feed present. Hyperkalemia-uncertain cause. Improving. Changed to renal tube feed yesterday. Plan The patient continues to require mechanical ventilation and FiO2 100% regarding his ARDS and pneumonia. Discussed this morning with Dr. Pineda postiván. Regarding elevated d-dimer will start therapeutic Lovenox. Consider CTA when patient is more stable. Will obtain an echocardiogram today. Will start Versed drip for sedation and discontinue propofol due to elevated triglycerides of 647 and regarding bradycardia Continue tube feeding and try to initiate free water 150 ML's every 4 hours. Clamping NG and check residuals via NG every [address] Mauricio consulted regarding bradycardia/possible asystole. Echocardiogram ordered again today. Continue Levaquin initiated 04/03/2017 and Rocephin initiated 04/02/2017. Continue Solu-Medrol Regarding hyperkalemia-this is improving. Continue renal tube feeds Will increase Lantus again today regarding hyperglycemia. Continue Reglan and Dulcolax suppositories to stimulate GI tract. Recheck lactate at noon today. He does not appear septic and that he does not have fever, increasing white count or bandemia. Will go ahead and check a UA and blood cultures 2. Continue current antibiotics for now. I did talk with the patient's father in person and updated him. I did call the patient's mother and updated her. I tried to call the patient's daughter but there was no answer. I've spoken with Dr. Mauricio, Dr. Pineda, and pharmacist today regarding patient. Greater than 90 minutes of critical care time spent seeing and evaluating the patient this morning. - Physician Narrative Narrative: Date: 04/06/17 Time: 0936 Hospital Course Summary Disclaimer: The visit summary below is not to be considered part of the above Progress Note. Hospital Course: Assessment Respiratory insufficiency with hypoxia Sepsis secondary to pneumonia Manifestations: Tachycardia, tachypnea, leukocytosis Community-acquired pneumonia Anasarca Morbid obesity-BMI 42.0 Hyperglycemia-POA Tinea corporis Tobacco dependence 04/02/17 Hospital admission Admit to inpatient status under the care of the hospitalist service, Dr. Lewis attending. It is expected that his stay will exceed 2 overnights given his sepsis secondary to pneumonia and overall condition. SCDs and Lovenox for DVT prophylaxis Urinalysis for laboratory completeness. Repeat CBC and BMP in am to follow leukocytosis, renal function and electrolytes. Schedule echocardiogram to evaluate cardiac structure and function given his anasarca and dyspnea. Oxygen, DuoNeb treatments, Acapella, and guaifenesin for respiratory symptoms. Continue Rocephin and Zithromax initiated and the emergency room. Blood cultures were drawn prior to antibiotic initiation. RT consult tobacco cessation. Terbinafine topically for his tinea corporis Patient wishes to be a full code. Case discussed with Dr. Lewis. Case management will need to assist in finding patient a PCP. 04/04/17 12:03 Plan The patient continues to require mechanical ventilation and is on 100% FiO2 regarding his ARDS and pneumonia. Continue ventilator support - Dr. Pineda is following. His help is greatly appreciated. Continue Levaquin initiated 04/03/2017 and Rocephin initiated 04/02/2017 Continue Solu-Medrol Discussed with Dr. Pineda, will change Lovenox to prophylactic dose. Venous Doppler of the legs were negative for DVT. No signs of right heart strain on echocardiogram. Advance tube feedings Nutren luminary 1.5 to goal of 70 ML's per hour. Start free water 400 ML's every 8 hours. DC IV fluids Vishal blood pressure off of IV fluids. May need to initiate antihypertensive Start Lantus 10 units subcutaneous daily. Increase to medium dose sliding scale insulin. Continue Lasix 40 mg IV every 12. Patient is diuresing well. Check CBC and renal panel tomorrow. Chest x-ray tomorrow. Assess with Dr. Pineda, the patient's significant other, and the patient's nurse. 04/05/17 09:31 Plan The patient continues to require mechanical ventilation and is now on 95% FiO2 regarding his ARDS and pneumonia. Continue ventilator support per Dr. Pineda Continue Levaquin initiated 04/03/2017 and Rocephin initiated 04/02/2017. Continue Solu-Medrol Regarding hyperkalemia, will try to change to feeding to a renal tube feeds. Check ABG. (7.32/79/103 on 95% FiO2) Recheck basic metabolic profile later today. May need to increase fluids followed by diuresis for hyperkalemia Increase Lantus to 20 units subcutaneous daily for hyperglycemia. Increase sliding scale insulin to high dose Start Reglan and Dulcolax suppositories to stimulate GI tract. Decrease tube feed rate to 50 ML's for now. Greater than 40 minutes critical care time.
[2017-04-06] MEDS ORDERED: RTU SALINE IVP ONE ×2 (09:45→15:00)
--- NOTE | 2017-04-06 09:45 | XRay Report ---
Indication: Respiratory Failure PROCEDURE: XR chest 1V: Encounter: Initial Comparison: April 05, 2017 Findings: Endotracheal and nasogastric tubes remain in place along with a right IJ line. Slight improvement in aeration of the lungs with considerable bilateral infiltrates remaining. No obvious pneumothorax. Trace effusions. Cardiac silhouette remains enlarged but unchanged. Mediastinal contours are stable. Impression: Slight improvement in aeration of the lungs with considerable bilateral residual infiltrates. There is a preliminary report by [facility]. .
--- NOTE | 2017-04-06 10:06 | XRay Report ---
Indication: Respiratory Failure PROCEDURE: XR chest 1V: Encounter: Initial Comparison: April 04, 2017 Findings: Support devices are stable. Continued bilateral airspace consolidation appears slightly worse in the right upper lobe. Hypoinflation. No pneumothorax. Cardiac silhouette remains enlarged but unchanged. Mediastinal contours are stable. Pulmonary vascularity is indistinct. Impression: Slight worsening consolidation in the right upper lobe. There is a preliminary report by [facility]. .
--- NOTE | 2017-04-06 10:15 | Pulmonology Progress Note ---
<Luisa Green - Last Filed: 04/06/17 10:11> Subjective Principal diagnosis: Pna, sepsis Interval history: Pt currently on the vent sedated with fentanyl and propofol, no distress noted at this time. Currently on vent settings AC/VC+, Vt 500, rate 18, Peep 12, FiO2 100%. Some sputum noted with suctioning and and 3%. Per staff he had a Derrick event this am into the 20's requiring compressions x 3 with hypoxemia noted too while on vent. Exam Vital signs: Temperature 98.3 F 04/05/17 16:30 Pulse Rate 80 04/06/17 09:38 Respiratory Rate 18 04/06/17 09:38 Blood Pressure 126/60 04/06/17 07:15 Pulse Oximetry 93 04/06/17 09:38 - Constitutional no acute distress, morbidly obese, other Comments: sedated - Routine HEENT Exam Head: Present: normocephalic, atraumatic ENT: Present: mucous membranes moist - Routine Neck Exam Present: supple, full ROM, trachea midline - Routine Respiratory Exam Present: patient mechanically ventilated, decreased breath sounds - Routine Cardiovascular Exam Present: RRR, S1, S2, no murmur - Routine Abdominal Exam Present: soft Comments: hypoactive - Routine Extremities Exam Present: edema, full ROM Comments: passive ROM - Routine Skin Exam Present: dry, rash - Routine Neurological Exam sedated on the vent, does get agitated when sedation decreased - Routine Psychiatric Exam Present: unable to assess - Urinary Catheter Management Urethral Cath placed during this visit: yes Reason for continuing: Accurate I&O/Aggressive Diuresis Insertion date: 04/02/17 Insertion time: 22:20 Assessment and Plan - Assessment and Plan Acute Hypoxic hypercapnic Respiratory Failure CAP Pneumonia Sepsis/ARDS Likely COPD Likely GLADYS - will need OP PSG Fluid overload Plan: Pt currently on the vent f18, Vt 500, peep 12, 100%, sats 93%, ABG 7.36/78/70, increased RR to 22, follow. Triglycerides 600 this am with bradycardia requiring chest compressions, stopping propofol and starting versed gtt. Pt likely with GLADYS and may need OP PSG vs home NIPPV. Currently on a/a q4hr, pulmicort BID, solumedrol 40 q6, 3% q6, BC NTD, sputum cx with NF, still on rocephin and levaquin, WBC improving, last bands improved to 4. Post code Lactate 3, BNP normal, procalcitonin 0.4, triponin normal. Currently on TF per , and free water. CXR: cardiomegaly and congestion but improving RUL/RML infiltrate. Awaiting echo results s/p code, Dr. Mauricio consulted. On lasix 40mg BID, I/O -1.3L. BLE Doppler neg, D-dimer 555 restarting therapeutic lovenox per primary. Pt still critically ill and will follow closely. - Time Spent With Patient Total time spent is greater than 50% in coordination of care (as documented) at patient's floor/unit and/or counseling patient: 25 - 35 minutes <Artur Pineda - Last Filed: 04/06/17 13:24> Exam Vital signs: Temperature 98.3 F 04/05/17 16:30 Pulse Rate 74 04/06/17 12:24 Respiratory Rate 22 04/06/17 12:24 Blood Pressure 126/60 04/06/17 07:15 Pulse Oximetry 89 L 04/06/17 12:24 - Urinary Catheter Management Urethral Cath placed during this visit: no Assessment and Plan (1) Acute respiratory failure with hypoxia Status: Acute Assessment and plan: AC/VC+. On rate 22, Vt 500. Peep 12, Fio2 100% Still requiring mod peep, high FiO2. Continue current support. Family stating that patient was very short of breath since January 2017 with progressive worsening. I think we are seeing a culmination of a long illness. Current Visit: Yes (2) ARDS (adult respiratory distress syndrome) Status: Acute Assessment and plan: As Above. On solumedrol 40 q8. WBC improved. Procalcitonin 0.4 Current Visit: Yes (3) Community acquired pneumonia Status: Acute Assessment and plan: cultures neg. Procalcitonin 0.4 (not very elevated). WBC improved without band forms. No fevers. On empiric antibiotics with Levaquin/Rocephin. Current Visit: No - Time Spent With Patient Total time spent is greater than 50% in coordination of care (as documented) at patient's floor/unit and/or counseling patient: 25 - 35 minutes - Attestation Attestation Narrative: I personally saw this patient and discussed case with nursing, attending, family. Agree with all the above with my additions.
[2017-04-06] MEDS: CEFTRIAXONE 1 G in NS 100 ML IV SCH (10:21)
[2017-04-06] MEDS: ENOXAPARIN SQ SCH ×2 (10:25→21:12)
[2017-04-06] MEDS: FUROSEMIDE 40 MG/4 ML INJECTION IVP SCH ×2 (10:27→20:57)
[2017-04-06] MEDS: GUAIFENESIN/D-METHORPHAN 600mg/30mg TABLET PO SCH ×2 (10:29→20:30)
[2017-04-06] MEDS: PANTOPRAZOLE 40 MG INJECTION IVP SCH ×2 (10:39→20:58)
[2017-04-06] MEDS: INSULIN GLARGINE 100unit/ml INJECTION SQ SCH (10:40)
[2017-04-06] MEDS: TERFINAFINE 1% CREAM 12 G TUBE TOP SCH ×2 (10:43→22:23)
--- NOTE | 2017-04-06 10:56 | Cardiology Consult Note ---
<Vidhya Galvez - Last Filed: 04/08/17 08:59> History of Present Illness Consult date: 04/06/17 Requesting physician: Laly Corado Chief complaint: Bradycardia History of present illness: Gianni is a 42-year-old male who initially presented to the emergency room with shortness of breath and pain in the left side of his back. At that time he stated that he's had some runny and stuffy nose this past week. He really hasn' t had much of a cough other than his chronic smoker's cough. When he coughed he had a "pinching" pain to the back and this prompted him to come in. He also reported that over the last 2-4 weeks he's had significant swelling to his abdomen and lower extremities. He denies history of asthma. Reported he had pneumonia 10 years ago. He was admitted to the hospitalist for further evaluation and treatment. Unfortunately prior to transfer to floor he did leave AMA but returned to the ER an hour later. On return his sats were 66% with RR 50's and he was started on 10L O2 per NC and eventually bipap. Unfortunately he developed hypercapnic failure ABG 7.2/72 and required intubation last noc. CXR today with cardiomegaly , vascular congestion, Right linear infiltrate. WBC 15.6, bands 8, febrile, BNP and procalcitonin both normal yesterday. He was admitted to ICU and started on BT's and abx with Pulmonary consult for his respiratory issues. Earlier this morning while Chest xray was being obtained he bacame bradycardic to the point a code was called and just as nursing were beginning compressions his rate picked up again. Dr. Mauricio is consulted and we appreciate the consult. He is currently normal sinus rhythm, heart rate 70s. He remains sedated on Propofol and intubated. Plan at this point is to switch from Propofol to Midazolam for sedation due to increased triglycerides. Review of Systems ROS unobtainable: due to endotracheal tube PFSH Morbid obesity - BMI 42 Surgical History: appy Family History: Father - CAD, DM Mother - healthy - Social History Smoking status: Current every day smoker (1ppd x 20 yrs) Substance use type: does not use Alcohol intake frequency: does not drink Current residence: Apartment/Private Home Medications Home Medications Medication Instructions Recorded Confirmed Type Acetaminophen [Tylenol] 500 mg PO TID 04/02/17 04/02/17 History Ibuprofen 200 mg PO TID 04/02/17 04/02/17 History Allergies Allergy/AdvReac Type Severity Reaction Status Date / Time adhesive tape Allergy Mild Rash Verified 04/04/17 10:01 Penicillins Allergy Mild Rash Verified 04/02/17 20:06 Exam Vital signs: Temperature 98.3 F 04/05/17 16:30 Pulse Rate 80 04/06/17 09:38 Respiratory Rate 18 04/06/17 09:38 Blood Pressure 126/60 04/06/17 07:15 Pulse Oximetry 93 04/06/17 09:38 - Constitutional no acute distress, morbidly obese - Routine HEENT Exam Head: Present: normocephalic ENT: Present: mucous membranes moist - Routine Neck Exam Absent: carotid bruit - Routine Respiratory Exam Present: CTA bilaterally (anteriorly) - Routine Cardiovascular Exam Present: RRR, no murmur - Routine Abdominal Exam Present: soft - Routine Extremities Exam Present: edema (upper and lower extremities) - Routine Skin Exam Present: intact - Routine Psychiatric Exam Present: unable to assess Results 04/08/17 04:10 04/08/17 04:10 Cardiac Enzymes 04/06/17 04/06/17 04/06/17 Range/Units 03:52 08:15 08:15 AST 35 D (17-59) U/L Troponin I < 0.012 (0-0.12) ng/ml B-Natriuretic Peptide 150 (0-175) pg/mL Coagulation 04/06/17 Range/Units 08:15 B-Natriuretic Peptide 150 (0-175) pg/mL Lipids 04/06/17 Range/Units 03:52 Triglycerides 647 H (40-160) MG/DL CBC 04/06/17 04/06/17 Range/Units 03:52 08:15 WBC 14.2 H 13.6 H (4.5-11.0) T/MM3 RBC 4.24 L 4.17 L (4.50-5.90) M/MM3 Hgb 13.3 L 13.1 L (13.5-17.5) GM/DL Hct 43.1 42.7 (41-53) % Plt Count 260 275 (130-400) T/MM3 Comprehensive Metabolic Panel 04/05/17 04/06/17 04/06/17 Range/Units 14:47 03:52 08:15 Sodium 142 144 145 H (134-144) MEQ/L Potassium 5.3 H 5.2 H 4.9 (3.6-5) MEQ/L Chloride 99 97 L 96 L (98-107) MEQ/L Carbon Dioxide 39 H 38 H 39 H (22-30) MEQ/L BUN 31.0 H 36.0 H 35.0 H (9-20) MG/DL Creatinine 0.8 0.8 0.8 (0.8-1.5) MG/DL Glucose 277 H 250 H 267 H (75-110) MG/DL Calcium 9.2 9.4 9.3 (8.4-10.2) MG/DL AST 35 D (17-59) U/L ALT 57 (21-72) U/L Alkaline Phosphatase 75 (38-126) U/L Total Protein 7.8 (6.3-8.2) G/DL Albumin 3.7 3.9 (3.5-5.0) G/DL Intake and Output 04/05/17 04/06/17 04/06/17 22:59 06:59 14:59 Intake Total 1420.417 / 1420.417 757.583 / 757.583 42 / 42 Output Total 1994 1400 / 1400 130 / 130 Balance -574.583 / -574.583 -642.417 / -642.417 -88 / -88 Intake: IV 1320.417 / 1320.417 617.583 / 617.583 42 / 42 FentaNYL 1,000 mcg In Ns 80 ml 91.25 / 91.25 144.250 / 144.250 15 / 15 @ 5 mls/hr IV .Q20H PRN Rx#: [id number] Ns 1,000 ml @ 200 mls/hr IV . 1000 / 1000 Q5H BOBBY Rx#:[id number] Propofol 1,000 mg In 100 ml @ 5 229.167 / 229.167 473.333 / 473.333 27 / 27 MCG/KG/MIN 5.115 mls/hr IV . [id number] PRN Rx#:[id number] Tube Feeding 100 / 100 140 / 140 Left Nare 100 / 100 140 / 140 Output: Urine Amount (Catheter) 1495 / 1495 650 / 650 130 / 130 Gastric Drainage 500 / 500 750 / 750 Oral 500 / 500 750 / 750 Other: Urine Appearance Sediment Cloudy Cloudy Urine Color Yellow Straw Dark Yellow Stool Color Brown Stool Consistency Liquid Size of Bowel Movement Small # Incontinent Bowel Movements 1 Weight 351 lb 13.724 oz 343 lb 11.21 oz Patient Weight 04/07/17 06:59 Weight 343 lb 11.21 oz - Imaging and Cardiology Echo: other (Reviewed remotely by . He reports: EF 65%, Mild TR, Mild MR, PAP 42, trace PI) EKG interpretations - EKG EKG results cardiology: WNL - Dysrhythmias Sinus rhythms and dysrhythmias: sinus rhythm Assessment and Plan - Assessment and Plan (1) Community acquired pneumonia Current visit: No Status: Acute as per Hospitalist and Pulm. (2) Acute respiratory failure with hypoxia Current visit: Yes Status: Acute per Hospitalist and Pulmonary (3) Bradycardia Current visit: Yes Status: Acute Possibly related to anesthesia Or vagal with positioning for chest x-ray - NSR now, EKG obtained is WNL - Echo reviewed remotely by . He reports: EF 65%, Mild TR, Mild MR, PAP 42, trace PI, essentially the same as on 04/03/17. - Obtain TSH with reflex T4. K+ 4.6, Mag 2.6 today - Continue to monitor cardiac telemetry - Assessment and Plan Possibly related to anesthesia Or vagal with positioning for chest x-ray - NSR now, EKG obtained is WNL - Echo reviewed remotely by . He reports: EF 65%, Mild TR, Mild MR, PAP 42, trace PI, essentially the same as on 04/03/17. - Obtain TSH with reflex T4. K+ 4.6, Mag 2.6 today - Continue to monitor cardiac telemetry I examined this patient independently and discussed findings with Dr. Mauricio. He reviewed electronic medical record, including echo and together we agreed on the plan of care. Thank you for allowing us to participate in the care of this patient, we will follow along with you. Hospital Course Summary Disclaimer: The visit summary below is not to be considered part of the above Progress Note. Hospital Course: Assessment Respiratory insufficiency with hypoxia Sepsis secondary to pneumonia Manifestations: Tachycardia, tachypnea, leukocytosis Community-acquired pneumonia Anasarca Morbid obesity-BMI 42.0 Hyperglycemia-POA Tinea corporis Tobacco dependence 04/02/17 Hospital admission Admit to inpatient status under the care of the hospitalist service, Dr. Lewis attending. It is expected that his stay will exceed 2 overnights given his sepsis secondary to pneumonia and overall condition. SCDs and Lovenox for DVT prophylaxis Urinalysis for laboratory completeness. Repeat CBC and BMP in am to follow leukocytosis, renal function and electrolytes. Schedule echocardiogram to evaluate cardiac structure and function given his anasarca and dyspnea. Oxygen, DuoNeb treatments, Acapella, and guaifenesin for respiratory symptoms. Continue Rocephin and Zithromax initiated and the emergency room. Blood cultures were drawn prior to antibiotic initiation. RT consult tobacco cessation. Terbinafine topically for his tinea corporis Patient wishes to be a full code. Case discussed with Dr. Lewis. Case management will need to assist in finding patient a PCP. 04/04/17 12:03 Plan The patient continues to require mechanical ventilation and is on 100% FiO2 regarding his ARDS and pneumonia. Continue ventilator support - Dr. Pineda is following. His help is greatly appreciated. Continue Levaquin initiated 04/03/2017 and Rocephin initiated 04/02/2017 Continue Solu-Medrol Discussed with Dr. Pineda, will change Lovenox to prophylactic dose. Venous Doppler of the legs were negative for DVT. No signs of right heart strain on echocardiogram. Advance tube feedings Nutren luminary 1.5 to goal of 70 ML's per hour. Start free water 400 ML's every 8 hours. DC IV fluids Vishal blood pressure off of IV fluids. May need to initiate antihypertensive Start Lantus 10 units subcutaneous daily. Increase to medium dose sliding scale insulin. Continue Lasix 40 mg IV every 12. Patient is diuresing well. Check CBC and renal panel tomorrow. Chest x-ray tomorrow. Assess with Dr. Pineda, the patient's significant other, and the patient's nurse. 04/05/17 09:31 Plan The patient continues to require mechanical ventilation and is now on 95% FiO2 regarding his ARDS and pneumonia. Continue ventilator support per Dr. Pineda Continue Levaquin initiated 04/03/2017 and Rocephin initiated 04/02/2017. Continue Solu-Medrol Regarding hyperkalemia, will try to change to feeding to a renal tube feeds. Check ABG. (7.32/79/103 on 95% FiO2) Recheck basic metabolic profile later today. May need to increase fluids followed by diuresis for hyperkalemia Increase Lantus to 20 units subcutaneous daily for hyperglycemia. Increase sliding scale insulin to high dose Start Reglan and Dulcolax suppositories to stimulate GI tract. Decrease tube feed rate to 50 ML's for now. Greater than 40 minutes critical care time. <Ebenezer Mauricio - Last Filed: 04/08/17 12:47> Exam Vital signs: Temperature 98.1 F 04/08/17 08:00 Pulse Rate 63 04/08/17 11:13 Respiratory Rate 22 04/08/17 11:13 Blood Pressure 114/59 04/08/17 10:30 Pulse Oximetry 92 04/08/17 11:13 Results 04/08/17 04:10 04/08/17 04:10 Cardiac Enzymes 04/08/17 Range/Units 04:10 AST 75 H D (17-59) U/L CBC 04/08/17 Range/Units 04:10 WBC 13.3 H (4.5-11.0) T/MM3 RBC 4.54 (4.50-5.90) M/MM3 Hgb 14.0 (13.5-17.5) GM/DL Hct 45.7 (41-53) % Plt Count 258 (130-400) T/MM3 Comprehensive Metabolic Panel 04/08/17 Range/Units 04:10 Sodium 146 H (134-144) MEQ/L Potassium 4.9 (3.6-5) MEQ/L Chloride 100 (98-107) MEQ/L Carbon Dioxide 38 H (22-30) MEQ/L BUN 40.0 H (9-20) MG/DL Creatinine 0.8 (0.8-1.5) MG/DL Glucose 215 H (75-110) MG/DL Calcium 9.3 (8.4-10.2) MG/DL AST 75 H D (17-59) U/L ALT 105 H (21-72) U/L Alkaline Phosphatase 67 (38-126) U/L Total Protein 7.6 (6.3-8.2) G/DL Albumin 3.8 (3.5-5.0) G/DL Intake and Output 04/07/17 04/08/17 04/08/17 22:59 06:59 14:59 Intake Total 760.150 / 760.150 924.517 / 924.517 98 / 98 Output Total 1605 / 1605 1100 / 1100 410 / 410 Balance -844.850 / -844.850 -175.483 / -175.483 -312 / -312 Intake: IV 205.150 / 205.150 244.517 / 244.517 98 / 98 FentaNYL 1,000 mcg In Ns 80 ml 167.667 / 167.667 160 / 160 20 / 20 @ 5 mls/hr IV .Q20H PRN Rx#: [id number] Midazolam 100 mg In RTU-Saline 78 / 78 0 ml @ Per Protocol IV .Q0M PRN Rx#:[id number] Midazolam 100 mg In Ns 0 ml @ 37.483 / 37.483 60 / 60 12 mls/hr IVP .Q8H20M ONE Rx#: [id number] Tube Feeding 135 / 135 280 / 280 Left Nare 135 / 135 280 / 280 Intake, Gastric Tube Irrigant 420 / 420 400 / 400 Amount Left Nare 20 / 20 60 / 60 Oral 400 / 400 340 / 340 Output: Urine Amount (Catheter) 1605 / 1605 1100 / 1100 410 / 410 Other: Urine Appearance Clear Clear Sediment Urine Color Yellow Dark Yellow Yellow Weight 149.6 kg 147.7 kg Patient Weight 04/09/17 06:59 Weight 147.7 kg Assessment and Plan - Attestation Attestation Narrative: 04/08/17 12:47 Recommendation After examining the patient I agree with the above assessment. I am involved in the formulation of the patient's plan of care. - Assessment and Plan (1) Community acquired pneumonia Current visit: No Status: Acute (2) Acute respiratory failure with hypoxia Current visit: Yes Status: Acute (3) Bradycardia Current visit: Yes Status: Acute Hospital Course Summary Disclaimer: The visit summary below is not to be considered part of the above Progress Note.
[2017-04-06] MEDS: LEVOFLOXACIN PB 750 MG/150 ML BAG IV SCH (11:30)
--- NOTE | 2017-04-06 11:46 | Pharmacy Consult ---
Pharmacy Consult-Lovenox - Laboratory Information ENOXAPARIN CONSULT: Dr. Reina Corado wanted use to monitor the Enoxaparin dose that she started for a possible PE. The dose is Lovenox 160 mg sq every 12 hours (1 mg/kg q 12hrs). Thank you for the Lovenox Protocol, Ryan Villeda, Pharmacist. .
[2017-04-06] MEDS ORDERED: RTU SALINE IVP SCH (14:15)
[2017-04-06] MEDS ORDERED: MIDAZOLAM IVP SCH (14:15)
[2017-04-06] MEDS: INSULIN ASPART 100unit/ml INJECTION SQ SCH ×2 (18:44→22:24)
--- NOTE | 2017-04-06 19:10 | Echocardiogram ---
DATE OF PROCEDURE: April 06, [address] Laly Corado DESCRIPTION This is a two-dimensional echo with spectral Doppler, color-flow and M-mode. It was obtained in a patient with pneumonia status post Code Blue. Left atrial dimension is normal. Left ventricle end-diastolic dimension is normal. Left ventricle wall thickness is normal. LV systolic function is normal with ejection fraction of about 65%. Right atrium is normal. Right ventricle is normal. Aortic root dimension is normal. Mitral valve is morphologically normal with mild mitral regurgitation. Aortic valve appears to be normal. Tricuspid valve shows mild tricuspid regurgitation with mild pulmonary hypertension with estimated pulmonary artery systolic pressure of 42. Pulmonary valve shows trace of pulmonary insufficiency. There is no pericardial effusion. IMPRESSION 1. Normal LV systolic function with ejection fraction of about 65%. 2. Mild mitral regurgitation. 3. Mild tricuspid regurgitation with mild pulmonary hypertension with estimated pulmonary artery systolic pressure of 42. 4. Trace of pulmonary insufficiency. MTDD
[2017-04-06] MEDS ORDERED: FALL RISK - PHARMACY CONSULT XX ONE (19:17)
[2017-04-07] MEDS: INSULIN ASPART 100unit/ml INJECTION SQ SCH ×4 (00:38→18:14)
[2017-04-07] MEDS: INSULIN ASPART 100unit/ml INJECTION SQ PRN ×4 (00:39→18:14)
[2017-04-07] MEDS: METHYLPREDNISOLONE SOD SUCC 125mg/2ml INJECTION IVP SCH ×3 (00:39→18:14)
[2017-04-07] MEDS ORDERED: [UNRECOGNIZED DRUG - OTHER] IVP SCH (01:40)
[2017-04-07] MEDS ORDERED: MIDAZOLAM IVP SCH (01:40)
[2017-04-07] MEDS: FentaNYL 1,000 MCG in NS 80 ML IV PRN ×4 (01:46→21:50)
[2017-04-07] MEDS: GUAIFENESIN 200mg/10ml ORAL LIQUID PO SCH ×4 (02:30→20:28)
[2017-04-07] MEDS: METOCLOPRAMIDE 10mg/2ml INJECTION IVP SCH ×4 (02:31→20:27)
[2017-04-07] MEDS: ALBUTEROL/IPRATROPIUM 2.5mg-0.5mg/3ml NEB AEROSOL SCH ×5 (03:05→20:30)
[2017-04-07] MEDS: SODIUM CL 3% INHAL.SOLN 15ml NEB AEROSOL SCH ×4 (03:18→22:30)
[2017-04-07] MEDS: TERFINAFINE 1% CREAM 12 G TUBE TOP SCH ×2 (07:30→20:28)
[2017-04-07] MEDS: BISACODYL 10 MG SUPPOSITORY RECTALLY SCH ×2 (07:30→20:07)
[2017-04-07] MEDS: BUDESONIDE INH.SOLN 0.5mg/2ml NEB AEROSOL SCH ×2 (08:40→20:35)
[2017-04-07] MEDS: CEFTRIAXONE 1 G in NS 100 ML IV SCH (08:58)
[2017-04-07] MEDS: FUROSEMIDE 40 MG/4 ML INJECTION IVP SCH (08:59)
[2017-04-07] MEDS: INSULIN GLARGINE 100unit/ml INJECTION SQ SCH (09:00)
[2017-04-07] MEDS: SALINE FLUSH 10ml SYRINGE IV PRN (09:03)
[2017-04-07] MEDS: PANTOPRAZOLE 40 MG INJECTION IVP SCH ×2 (09:03→20:27)
[2017-04-07] MEDS: MIDAZOLAM IVP ONE ×2 (09:06→19:07)
[2017-04-07] MEDS: NS IVP ONE ×2 (09:06→19:07)
[2017-04-07] MEDS: ENOXAPARIN 40 MG/0.4 ML INJECTION SQ SCH (09:49)
[2017-04-07] MEDS: LEVOFLOXACIN PB 750 MG/150 ML BAG IV SCH ×2 (09:56→10:20)
--- NOTE | 2017-04-07 10:43 | Progress Note ---
- Date 04/07/17 Subjective: Patient is seen this morning in CCU. He remains ventilated on 100% FiO2. O2 sat is ranging from 90-93%. Nursing reports that the patient does drop his oxygen saturations into the mid 80s with turning or any other movement. He has been tolerating tube feed at 20 ML's per hour. He has tolerated the free water per Dobbhoff. Urine output has remained good. Heart rate has remained stable. He occasionally moves his legs but appears in no distress. Per RT, he had copious thick nasal drainage from the right nares. Sample sent for for Gram stain and culture. Objective Vital signs: Temperature 99.1 F 04/07/17 07:30 Pulse Rate 76 04/07/17 10:00 Respiratory Rate 22 04/07/17 10:00 Blood Pressure 125/62 04/07/17 10:00 Pulse Oximetry 89 L 04/07/17 10:00 Rhythm: Sinus Tachycardia Height/Weight/BMI: Height 1.8 m Weight 155.9 kg Body Mass Index 51.2 Comments: I&O yesterday 1511/4190 Cumulative I&O 13.7 L/22.2 L Cumulative -8.5 L Blood pressure 125/62, heart rate 77, O2 sat 92% on 100% FiO2 on the ventilator GEN-the patient is sedated on fentanyl and Versed. He appears comfortable. Face continues to be lori, but family states this is normal for him. HEENT-pupils are equal and active, Dobbhoff in the left nares. Orally intubated. OG in place and is clamped except for checking residuals which have been minimal. NECK-right IJ in place CV-regular rate and rhythm CHEST-coarse breath sounds bilaterally ABD-soft, obese, no distention, positive bowel sounds -Walker in place with light colored urine EXT-+2 edema of the feet, +1 pretibial edema-overall, edema is markedly improved NEURO-sedated. The patient does move his legs a little bit spontaneously and to touch SKIN-continues to have diaphoresis especially on his head Results - Labs CBC & Chem 7: 04/07/17 04:31 04/07/17 04:31 Labs: Neutrophils 74, bands 3 Blood sugars 158-197 Potassium markedly improved at 4.5 today Phosphorus 4.5. Calcium 9.3 Microbiology Results: Microbiology 04/07/17 08:43 Nasopahrynx Nasopharyngeal Culture - Preliminary Culture Initiated - Results Pending 04/06/17 11:03 Port/Picc Blood Culture - Preliminary Culture Initiated - Results Pending 04/06/17 10:37 Port/Picc Blood Culture - Preliminary Culture Initiated - Results Pending 04/03/17 11:30 Sputum, Suctioned Gram Stain - Final 04/03/17 11:30 Sputum, Suctioned Sputum Culture - Final Normal Respiratory Mayelin 04/03/17 10:38 Urine Legionella Urinary Antigen - Final 04/03/17 10:38 Urine Streptococcus pneumoniae Antigen (M - Final - ABG Interpretation ABG results: 04/06/17 08:12 ABG pH 7.360 ABG pCO2 78 H* ABG pO2 70 L ABG HCO3 44 H ABG Total CO2 46.5 H ABG O2 Saturation 93.0 L ABG Base Excess 15.1 H - Impressions Chest x-ray on my read appears to showed decrease in infiltrates especially in the right upper lobe Assessment and Plan (1) Community acquired pneumonia Current visit: No Status: Acute Assessment and Plan: Assessment CODE BLUE/bradycardia versus short lasting asystole on 04/06/2017-patient received chest compressions 3 -EKG and troponin post event were normal Elevated d-dimer 555 -Lovenox therapeutic dose initiated 04/06/2017 Acute hypoxic and hypercarbic respiratory failure-requiring mechanical ventilation, FiO2 100% ARDS Community-acquired pneumonia-severe, requiring intubation Sepsis secondary to pneumonia on admission Manifestations: Tachycardia, tachypnea, leukocytosis. Lactate normal on admission Anasarca Lactate postcode blue was elevated at 3.0. And normalized to 1.4 on recheck. He remains afebrile. White count continues to decrease. Bands are 3. Blood pressure has not been low. Echocardiogram revealed normal EF, left ventricular hypertrophy, PA pressure 41 with mild pulmonary hypertension (echo 04/06/2017 unchanged on recheck)-BNP has been normal Morbid obesity-BMI 42.0 Diabetes Mellitus Type 2 - A1C 7.1 on admission (new diagnosis)-blood sugars have improved with increased insulin. Possible COPD Probable obstructive sleep apnea Chronic back pain with high-dose ibuprofen and Tylenol use Tinea corporis Tobacco dependence Hyperkalemia with potassium to 5.5 of undetermined etiology. He has not receiving any potassium other than what was in his original tube feedings. He has been on IV Lasix.-Hyperkalemia has improved today. Possible sinusitis right nears with copious thick nasal secretions-specimen sent for Gram stain and culture with sensitivity Mild hypernatremia with sodium of 146 Plan The patient continues to require mechanical ventilation and FiO2 100% regarding his ARDS and pneumonia. The patient has tolerated discontinuation of propofol and initiation of Versed. The patient is tolerating his tube feedings. Will advance as tolerated. Will increase free water to 200 ML's every 4 hours and decrease Lasix to 20 mg IV every 12 regarding his elated sodium. Continue to monitor blood pressure closely. Continue Levaquin initiated 04/03/2017 and Rocephin initiated 04/02/2017. Continue Solu-Medrol Regarding hyperkalemia-is resolved. Continue renal tube feeds Continue Reglan and Dulcolax suppositories to stimulate GI tract. Greater than 45 minutes of critical care time spent seeing and evaluating the patient. The patient's brother was updated. DVT Prophylaxis: Lovenox GI Prophylaxis: Protonix Resuscitation Status: Full Code - Physician Narrative Narrative: Date: 04/07/17 Time: 1039 Hospital Course Summary Disclaimer: The visit summary below is not to be considered part of the above Progress Note. Hospital Course: Assessment Respiratory insufficiency with hypoxia Sepsis secondary to pneumonia Manifestations: Tachycardia, tachypnea, leukocytosis Community-acquired pneumonia Anasarca Morbid obesity-BMI 42.0 Hyperglycemia-POA Tinea corporis Tobacco dependence 04/02/17 Hospital admission Admit to inpatient status under the care of the hospitalist service, Dr. Lewis attending. It is expected that his stay will exceed 2 overnights given his sepsis secondary to pneumonia and overall condition. SCDs and Lovenox for DVT prophylaxis Urinalysis for laboratory completeness. Repeat CBC and BMP in am to follow leukocytosis, renal function and electrolytes. Schedule echocardiogram to evaluate cardiac structure and function given his anasarca and dyspnea. Oxygen, DuoNeb treatments, Acapella, and guaifenesin for respiratory symptoms. Continue Rocephin and Zithromax initiated and the emergency room. Blood cultures were drawn prior to antibiotic initiation. RT consult tobacco cessation. Terbinafine topically for his tinea corporis Patient wishes to be a full code. Case discussed with Dr. Lewis. Case management will need to assist in finding patient a PCP. 04/04/17 12:03 Plan The patient continues to require mechanical ventilation and is on 100% FiO2 regarding his ARDS and pneumonia. Continue ventilator support - Dr. Pineda is following. His help is greatly appreciated. Continue Levaquin initiated 04/03/2017 and Rocephin initiated 04/02/2017 Continue Solu-Medrol Discussed with Dr. Pineda, will change Lovenox to prophylactic dose. Venous Doppler of the legs were negative for DVT. No signs of right heart strain on echocardiogram. Advance tube feedings Nutren luminary 1.5 to goal of 70 ML's per hour. Start free water 400 ML's every 8 hours. DC IV fluids Vishal blood pressure off of IV fluids. May need to initiate antihypertensive Start Lantus 10 units subcutaneous daily. Increase to medium dose sliding scale insulin. Continue Lasix 40 mg IV every 12. Patient is diuresing well. Check CBC and renal panel tomorrow. Chest x-ray tomorrow. Assess with Dr. Pineda, the patient's significant other, and the patient's nurse. 04/05/17 09:31 Plan The patient continues to require mechanical ventilation and is now on 95% FiO2 regarding his ARDS and pneumonia. Continue ventilator support per Dr. Pineda Continue Levaquin initiated 04/03/2017 and Rocephin initiated 04/02/2017. Continue Solu-Medrol Regarding hyperkalemia, will try to change to feeding to a renal tube feeds. Check ABG. (7.32/79/103 on 95% FiO2) Recheck basic metabolic profile later today. May need to increase fluids followed by diuresis for hyperkalemia Increase Lantus to 20 units subcutaneous daily for hyperglycemia. Increase sliding scale insulin to high dose Start Reglan and Dulcolax suppositories to stimulate GI tract. Decrease tube feed rate to 50 ML's for now. Greater than 40 minutes critical care time.
--- NOTE | 2017-04-07 12:16 | Pulmonology Progress Note ---
Subjective Principal diagnosis: Pna, sepsis Interval history: Pt currently on the vent sedated with fentanyl and versed, no distress noted at this time. Currently on vent settings AC/VC+, Vt 500, rate 18, Peep 10, FiO2 100 %. SPo2 93. Oral secretions, likely from sinuses were cultured today. minimal sputum noted with suctioning and and 3%. Exam Vital signs: Temperature 99.1 F 04/07/17 07:30 Pulse Rate 80 04/07/17 10:58 Respiratory Rate 22 04/07/17 10:56 Blood Pressure 125/62 04/07/17 10:00 Pulse Oximetry 91 04/07/17 10:58 - Constitutional no acute distress - Routine HEENT Exam Eye: Present: EOMI. Absent: conjunctival icterus - Routine Respiratory Exam Present: patient mechanically ventilated, rhonchi. Absent: accessory muscle use - Routine Cardiovascular Exam Present: RRR - Routine Abdominal Exam Present: soft, distended. Absent: guarding - Routine Extremities Exam Present: edema. Absent: cyanosis, clubbing Comments: edema improving - Urinary Catheter Management Urethral Cath placed during this visit: yes Insertion date: 04/02/17 Insertion time: 22:20 Assessment and Plan (1) Acute respiratory failure with hypoxia Status: Acute Assessment and plan: continue ACVC+ vent. Hopefully we can reduce the FIO2 steadily. Continue Peep 10 for now. Continue full vent support Current Visit: Yes (2) ARDS (adult respiratory distress syndrome) Status: Acute Current Visit: Yes (3) Community acquired pneumonia Status: Acute Current Visit: No - Assessment and Plan Acute Hypoxic hypercapnic Respiratory Failure CAP Pneumonia Sepsis/ARDS Likely COPD Likely GLADYS - will need OP PSG Fluid overload Plan: Pt currently on the vent f18, Vt 500, peep 12, 100%, sats 93%, ABG 7.36/78/70, increased RR to 22, follow. Triglycerides 600 this am with bradycardia requiring chest compressions, stopping propofol and starting versed gtt. Pt likely with GLADYS and may need OP PSG vs home NIPPV. Currently on a/a q4hr, pulmicort BID, solumedrol 40 q6, 3% q6, BC NTD, sputum cx with NF, still on rocephin and levaquin, WBC improving, last bands improved to 4. Post code Lactate 3, BNP normal, procalcitonin 0.4, triponin normal. Currently on TF per , and free water. CXR: cardiomegaly and congestion but improving RUL/RML infiltrate. Awaiting echo results s/p code, Dr. Mauricio consulted. On lasix 40mg BID, I/O -1.3L. BLE Doppler neg, D-dimer 555 restarting therapeutic lovenox per primary. Pt still critically ill and will follow closely. - Time Spent With Patient Total time spent is greater than 50% in coordination of care (as documented) at patient's floor/unit and/or counseling patient: less than 15 minutes
[2017-04-07] MEDS: ENOXAPARIN SQ SCH ×2 (14:16→20:28)
[2017-04-07] MEDS: CEFEPIME 2 GM INJECTION IV SCH (20:06)
[2017-04-07] MEDS: FUROSEMIDE 20 MG/2 ML INJECTION IVP SCH (20:07)
[2017-04-07] MEDS: REFRESH CLASSIC Eye Drops 0.4ml EACH EYE PRN (21:10)
[2017-04-08] MEDS: ALBUTEROL/IPRATROPIUM 2.5mg-0.5mg/3ml NEB AEROSOL SCH ×7 (00:20→23:10)
[2017-04-08] MEDS: INSULIN ASPART 100unit/ml INJECTION SQ SCH ×4 (00:31→18:45)
[2017-04-08] MEDS: INSULIN ASPART 100unit/ml INJECTION SQ PRN ×2 (00:31→05:37)
[2017-04-08] MEDS: METHYLPREDNISOLONE SOD SUCC 125mg/2ml INJECTION IVP SCH ×3 (00:31→17:01)
[2017-04-08] MEDS: SALINE FLUSH 10ml SYRINGE IV PRN ×3 (00:32→20:12)
[2017-04-08] MEDS: FentaNYL 1,000 MCG in NS 80 ML IV PRN ×3 (02:42→18:26)
[2017-04-08] MEDS: GUAIFENESIN 200mg/10ml ORAL LIQUID PO SCH ×4 (03:07→20:12)
[2017-04-08] MEDS: METOCLOPRAMIDE 10mg/2ml INJECTION IVP SCH ×4 (03:08→20:13)
[2017-04-08] MEDS: CEFEPIME 2 GM INJECTION IV SCH (03:08)
[2017-04-08] MEDS: SODIUM CL 3% INHAL.SOLN 15ml NEB AEROSOL SCH ×4 (03:35→23:10)
[2017-04-08] MEDS: MIDAZOLAM IV PRN ×3 (04:10→18:25)
[2017-04-08] MEDS: RTU SALINE IV PRN ×3 (04:10→18:25)
[2017-04-08] MEDS: BUDESONIDE INH.SOLN 0.5mg/2ml NEB AEROSOL SCH ×2 (07:08→19:30)
[2017-04-08] MEDS ORDERED: MIDAZOLAM IVP PRN (07:45)
[2017-04-08] MEDS ORDERED: RTU SALINE IVP PRN (07:45)
--- NOTE | 2017-04-08 08:19 | XRay Report ---
Indication: check for ileus PROCEDURE: XR KUB: Encounter: Initial Comparison: None Findings: Dobbhoff an nasogastric tubes in place with the tip projecting over the third portion of the duodenum. Left basilar airspace disease with small effusion. The bowel gas pattern is nonobstructive and nonspecific. Minimal bowel gas overall and fluid-filled bowel loops cannot be excluded. Impression: Dobbhoff and nasogastric tube tips project over the third portion of the duodenum. Minimal bowel gas seen. There is a preliminary report by virtual radiologic. .
[2017-04-08] MEDS: BISACODYL 10 MG SUPPOSITORY RECTALLY SCH ×2 (08:24→20:14)
--- NOTE | 2017-04-08 08:25 | XRay Report ---
Indication: Respiratory Failure PROCEDURE: XR chest 1V: Encounter: Initial Comparison: April 06, 2017 Findings: Right upper lobe airspace consolidation is grossly stable. Lung volumes are low. Support devices are stable. No new or worsening airspace disease. No gross pneumothorax on this semiupright view. Small effusions. Heart size and mediastinal contours are unchanged. Impression: Overall stable appearance of the chest. .
--- NOTE | 2017-04-08 08:33 | XRay Report ---
Indication: Respiratory Failure PROCEDURE: XR chest 1V: Encounter: Initial Comparison: April 07, 2017 Findings: Support devices are stable. Appearance of the lungs is stable allowing for differences in exposure technique. No new or worsening infiltrates. Small effusions. No gross pneumothorax. Heart size and mediastinal contours are unchanged. Pulmonary vascularity is stable. Impression: No change. .
[2017-04-08] MEDS: FUROSEMIDE 20 MG/2 ML INJECTION IVP SCH ×2 (08:53→20:13)
[2017-04-08] MEDS: PANTOPRAZOLE 40 MG INJECTION IVP SCH ×2 (08:54→20:13)
[2017-04-08] MEDS: TERFINAFINE 1% CREAM 12 G TUBE TOP SCH ×2 (08:56→20:15)
[2017-04-08] MEDS: INSULIN GLARGINE 100unit/ml INJECTION SQ SCH (09:00)
[2017-04-08] MEDS: ALBUTEROL/IPRATROPIUM 2.5mg-0.5mg/3ml NEB AEROSOL PRN (09:18)
--- NOTE | 2017-04-08 09:31 | Progress Note ---
- Date 04/08/17 Subjective: The patient remains on the ventilator with FiO2 now down to 95%. He is sedated on Versed and fentanyl. He appears comfortable. NG currently has some pink liquid in the tubing. He has been tolerating advancement of tube feeds. Urine output remains good. He is down 22.3 kg since admission. One of 2 blood cultures drawn on the was positive for gram- positive den. He had a low-grade fever yesterday in the 100.1 at noon, but no fever since that time. Objective Vital signs: Temperature 99.6 F 04/08/17 04:00 Pulse Rate 72 04/08/17 07:30 Respiratory Rate 22 04/08/17 07:30 Blood Pressure 119/60 04/08/17 07:30 Pulse Oximetry 95 04/08/17 07:30 Rhythm: Sinus Tachycardia Height/Weight/BMI: Height 1.8 m Weight 147.7 kg Body Mass Index 51.2 Comments: I&O equals 1858/4680 Weight 147.7 kg down approximately 2 kg since yesterday and down approximately 22 kg since admission GEN-heavily sedated on the ventilator, no signs of distress HEENT-pupils are equal round and reactive, sclera are anicteric. Dobbhoff in the left nares. He is orally intubated with an OG in place. NECK-right IJ in place CV-regular rate and rhythm, no further bradycardia or asystole CHEST-clear to auscultation bilaterally from the anterior ABD-soft, obese, increased bowel sounds today -Walker catheter with meg colored urine EXT-+1 pretibial edema, +1 pedal edema, overall markedly improved NEURO-heavily sedated SKIN-face is flushed which is chronic. Diaphoresis, especially on his head- resident since admission. Probable ringworm Results - Labs CBC & Chem 7: 04/08/17 04:10 04/08/17 04:10 Labs: Bands are 10 up from 3. Phosphorus mildly elevated at 5.1 Magnesium mildly elevated at 2.6 AST is 75 and ALT 105. Both were normal yesterday. Microbiology Results: Microbiology 04/06/17 10:37 Port/Picc Gram Stain - Final 04/06/17 10:37 Port/Picc Blood Culture - Preliminary Gram Positive Den 04/07/17 08:43 Nasopahrynx Gram Stain - Final 04/07/17 08:43 Nasopahrynx Nasopharyngeal Culture - Preliminary No Growth After 1 Day 04/06/17 11:03 Port/Picc Blood Culture - Preliminary No Growth After 1 Day 04/03/17 11:30 Sputum, Suctioned Gram Stain - Final 04/03/17 11:30 Sputum, Suctioned Sputum Culture - Final Normal Respiratory Mayelin 04/03/17 10:38 Urine Legionella Urinary Antigen - Final 04/03/17 10:38 Urine Streptococcus pneumoniae Antigen (M - Final Blood cultures on the day of admission are negative after 5 days. - Impressions Chest x-ray today reportedly stable per radiology. I have viewed the film myself. It does look better but this may just be technique. Assessment and Plan (1) Community acquired pneumonia Current visit: No Status: Acute Assessment and Plan: Assessment CODE BLUE/bradycardia versus short lasting asystole on 04/06/2017-patient received chest compressions 3 -EKG and troponin post event were normal Elevated d-dimer 555 -Lovenox therapeutic dose initiated 04/06/2017. Acute hypoxic and hypercarbic respiratory failure-requiring mechanical ventilation, FiO2 100%. Intubated on 04/02/2017. Versed and fentanyl for sedation ARDS Community-acquired pneumonia-severe, requiring intubation. Levaquin initiated and Rocephin initiated 04/02/2017. Changed Rocephin 2 cefepime on 04/07. Sepsis secondary to pneumonia on admission Manifestations: Tachycardia, tachypnea, leukocytosis. Lactate normal on admission Anasarca Lactate postcode blue was elevated at 3.0. And normalized to 1.4 on recheck. He remains afebrile. White count continues to decrease. Bands are 3. Blood pressure has not been low. Gram-positive den in one of 2 blood cultures from 04/06/2017 Echocardiogram revealed normal EF, left ventricular hypertrophy, PA pressure 41 with mild pulmonary hypertension (echo 04/06/2017 unchanged on recheck)-BNP has been normal Morbid obesity-BMI 42.0 Diabetes Mellitus Type 2 - A1C 7.1 on admission (new diagnosis)-on Lantus, scheduled NovoLog and sliding scale insulin Possible COPD Probable obstructive sleep apnea Chronic back pain with high-dose ibuprofen and Tylenol use prior to admission Tinea corporis/ringworm? Tobacco dependence Hyperkalemia with potassium up to 5.5 of undetermined etiology. He has not receiving any potassium other than what was in his original tube feedings. He has been on IV Lasix.-Hyperkalemia improved with renal tube feeds Possible sinusitis right nears with copious thick nasal secretions-specimen sent for Gram stain and culture with sensitivity Mild hypernatremia with sodium of 146 Possible upper GI bleed with pink drainage from NG Plan Overall, the patient is stable. He is diuresing well. Weight is down approximately 22 kg over the past 1 week. He has been on the ventilator for one week now. FiO2 turned down to 95% this morning. Consulted Dr. Johnson regarding positive blood culture and antibiotic recommendations The patient continues to require mechanical ventilation regarding his ARDS and pneumonia. FiO2 down to 95% this morning The patient is tolerating his tube feedings. Will advance as tolerated to goal. Will increase free water to 250 ML's every 4 hours. Continue Lasix 20 mg IV every 12. Continue to monitor blood pressure closely. Continue Levaquin initiated 04/03/2017 and Rocephin initiated 04/02/2017. Continue Solu-Medrol and breathing treatments Regarding hyperkalemia- Continue renal tube feeds Continue Reglan and Dulcolax suppositories to stimulate GI tract. Regarding possible mild upper GI bleed, will Gastric occult NG drainage. Hold Lovenox for now. Greater than 45 minutes of critical care time spent seeing and evaluating the patient. DVT Prophylaxis: SCD's, Lovenox GI Prophylaxis: Protonix Resuscitation Status: Full Code - Physician Narrative Narrative: Date: 04/08/17 Time: 0923 Hospital Course Summary Disclaimer: The visit summary below is not to be considered part of the above Progress Note. Hospital Course: Assessment Respiratory insufficiency with hypoxia Sepsis secondary to pneumonia Manifestations: Tachycardia, tachypnea, leukocytosis Community-acquired pneumonia Anasarca Morbid obesity-BMI 42.0 Hyperglycemia-POA Tinea corporis Tobacco dependence 04/02/17 Hospital admission Admit to inpatient status under the care of the hospitalist service, Dr. Lewis attending. It is expected that his stay will exceed 2 overnights given his sepsis secondary to pneumonia and overall condition. SCDs and Lovenox for DVT prophylaxis Urinalysis for laboratory completeness. Repeat CBC and BMP in am to follow leukocytosis, renal function and electrolytes. Schedule echocardiogram to evaluate cardiac structure and function given his anasarca and dyspnea. Oxygen, DuoNeb treatments, Acapella, and guaifenesin for respiratory symptoms. Continue Rocephin and Zithromax initiated and the emergency room. Blood cultures were drawn prior to antibiotic initiation. RT consult tobacco cessation. Terbinafine topically for his tinea corporis Patient wishes to be a full code. Case discussed with Dr. Lewis. Case management will need to assist in finding patient a PCP. 04/04/17 12:03 Plan The patient continues to require mechanical ventilation and is on 100% FiO2 regarding his ARDS and pneumonia. Continue ventilator support - Dr. Pineda is following. His help is greatly appreciated. Continue Levaquin initiated 04/03/2017 and Rocephin initiated 04/02/2017 Continue Solu-Medrol Discussed with Dr. Pineda, will change Lovenox to prophylactic dose. Venous Doppler of the legs were negative for DVT. No signs of right heart strain on echocardiogram. Advance tube feedings Nutren luminary 1.5 to goal of 70 ML's per hour. Start free water 400 ML's every 8 hours. DC IV fluids Vishal blood pressure off of IV fluids. May need to initiate antihypertensive Start Lantus 10 units subcutaneous daily. Increase to medium dose sliding scale insulin. Continue Lasix 40 mg IV every 12. Patient is diuresing well. Check CBC and renal panel tomorrow. Chest x-ray tomorrow. Assess with Dr. Pineda, the patient's significant other, and the patient's nurse. 04/05/17 09:31 Plan The patient continues to require mechanical ventilation and is now on 95% FiO2 regarding his ARDS and pneumonia. Continue ventilator support per Dr. Pineda Continue Levaquin initiated 04/03/2017 and Rocephin initiated 04/02/2017. Continue Solu-Medrol Regarding hyperkalemia, will try to change to feeding to a renal tube feeds. Check ABG. (7.32/79/103 on 95% FiO2) Recheck basic metabolic profile later today. May need to increase fluids followed by diuresis for hyperkalemia Increase Lantus to 20 units subcutaneous daily for hyperglycemia. Increase sliding scale insulin to high dose Start Reglan and Dulcolax suppositories to stimulate GI tract. Decrease tube feed rate to 50 ML's for now. Greater than 40 minutes critical care time. 04/07/2017 Plan The patient continues to require mechanical ventilation and FiO2 100% regarding his ARDS and pneumonia. The patient has tolerated discontinuation of propofol and initiation of Versed. The patient is tolerating his tube feedings. Will advance as tolerated. Will increase free water to 200 ML's every 4 hours and decrease Lasix to 20 mg IV every 12 regarding his elated sodium. Continue to monitor blood pressure closely. Continue Levaquin initiated 04/03/2017 and Rocephin initiated 04/02/2017. Continue Solu-Medrol Regarding hyperkalemia-is resolved. Continue renal tube feeds Continue Reglan and Dulcolax suppositories to stimulate GI tract. Greater than 45 minutes of critical care time spent seeing and evaluating the patient. The patient's brother was updated. 04/08/17 09:49 Plan Overall, the patient is stable. He is diuresing well. Weight is down approximately 22 kg over the past 1 week. He has been on the ventilator for one week now. FiO2 turned down to 95% this morning. Consulted Dr. Johnson regarding positive blood culture and antibiotic recommendations The patient continues to require mechanical ventilation regarding his ARDS and pneumonia. FiO2 down to 95% this morning The patient is tolerating his tube feedings. Will advance as tolerated to goal. Will increase free water to 250 ML's every 4 hours. Continue Lasix 20 mg IV every 12. Continue to monitor blood pressure closely. Continue Levaquin initiated 04/03/2017 and Rocephin initiated 04/02/2017. Continue Solu-Medrol and breathing treatments Regarding hyperkalemia- Continue renal tube feeds Continue Reglan and Dulcolax suppositories to stimulate GI tract. Regarding possible mild upper GI bleed, will Gastric occult NG drainage. Hold Lovenox for now. Greater than 45 minutes of critical care time spent seeing and evaluating the patient.
[2017-04-08] MEDS ORDERED: VANCOMYCIN - PHARMACY CONSULT MC ONE (09:33)
--- NOTE | 2017-04-08 09:52 | Infectious Disease Consult ---
Infectious Disease Consult Date of Consultation: 04/08/17 Requesting Physician: Laly Corado Reason for Consultation: antibiotic recs History of Present Illness: Mr. Zamora is a 42 y/o man who hasn't had much medical care recently. He presented to the ED on 04/02 with complaints of shortness of breath, cough and pain at the left side of his back. CXR showed L basilar pneumonia. He was given Rocephin and zithromax, and he was admitted, but before he was transferred to his inpatient room, he left AMA. Initial labs showed a WBC of 13.5, procalcitonin was <0.05, lactate was 1.4. He was given a script for Levaquin before he left AMA. Blood cultures were drawn at that initial ED visit , and are negative. He returned to the ED less than 2 hours later, and his O2 sat was 66, RR was 58. He was treated with O2 and bipap, but was intubated at 2000 that evening. He also had a h/o progressive LE edema several days prior to admission. He was treated with ceftriaxone, levaquin and azithromycin. He had an episode of severe bradycardia on 04/06 to the point that he had chest compressions x 3. CXR did not show anything new. He has developed ARDS and is requiring high FiO2 and is on steroids. Blood cultures were repeated on 04/06 and one bottle is positive for GPRs. Legionella and S. pneumo antigens are negative. Sputum culture 04/03 has normal mayelin. RVP was negative. Antibiotics were changed from ceftriaxone to cefepime yesterday. He's been on anticoagulation as well. I've been asked to help with his antibiotics. Medications Home Medications Medication Instructions Recorded Confirmed Type Acetaminophen [Tylenol] 500 mg PO TID 04/02/17 04/02/17 History Ibuprofen 200 mg PO TID 04/02/17 04/02/17 History Allergies Allergy/AdvReac Type Severity Reaction Status Date / Time adhesive tape Allergy Mild Rash Verified 04/04/17 10:01 Penicillins Allergy Mild Rash Verified 04/02/17 20:06 FOR[facility] Obesity Surgical History: appy Family History: Father - CAD, DM Mother - healthy - Social History Smoking status: Current every day smoker (1ppd x 20 yrs) Current residence: Apartment/Private Home Review of Systems ROS unobtainable: due to endotracheal tube Exam Vital Signs: Temperature 99.6 F 04/08/17 04:00 Pulse Rate 70 04/08/17 09:19 Respiratory Rate 22 04/08/17 09:19 Blood Pressure 119/60 04/08/17 07:30 Pulse Oximetry 96 04/08/17 09:19 Height/Weight/BMI: Height 1.8 m Weight 147.7 kg Body Mass Index 51.2 - Constitutional Present: no acute distress, obese Comments: Intubated, sedated - Routine HEENT Exam Head: Present: normocephalic, atraumatic Eye: Present: EOMI, PERRL ENT: Present: nares patent Comments: difficult to evaluate oropharynx due to ETT - Routine Neck Exam Present: supple - Routine Respiratory Exam Present: patient mechanically ventilated Comments: coarse breath sounds bilaterally - Routine Cardiovascular Exam Present: RRR - Routine Abdominal Exam Present: soft (obese), normoactive bowel sounds, non distended, non tender - Routine Exam Comments: angeles catheter in place - Routine Extremities Exam Present: edema (1+ LEs). Absent: cyanosis, clubbing - Routine Skin Exam Present: rash (several areas of rash near axillae that have the appearance of tinea, has some scaling of eyelids, also has onychomycosis and peeling skin on feet consistent with tinea pedis). Absent: mottling Comments: R IJ in place - Routine Neurological Exam Present: altered mental status (sedated) - Routine Psychiatric Exam Present: unable to assess Results - Labs CBC & Chem 7: 04/08/17 04:10 04/08/17 04:10 Microbiology Results: Microbiology 04/06/17 10:37 Port/Picc Gram Stain - Final 04/06/17 10:37 Port/Picc Blood Culture - Preliminary Gram Positive Den 04/07/17 08:43 Nasopahrynx Gram Stain - Final 04/07/17 08:43 Nasopahrynx Nasopharyngeal Culture - Preliminary No Growth After 1 Day 04/06/17 11:03 Port/Picc Blood Culture - Preliminary No Growth After 1 Day 04/03/17 11:30 Sputum, Suctioned Gram Stain - Final 04/03/17 11:30 Sputum, Suctioned Sputum Culture - Final Normal Respiratory Mayelin 04/03/17 10:38 Urine Legionella Urinary Antigen - Final 04/03/17 10:38 Urine Streptococcus pneumoniae Antigen (M - Final Impression: Sepsis, secondary to pulmonary source Acute hypoxic respiratory failure Bilateral community-acquired pneumonia ARDS on steroids CODE BLUE/bradycardia versus short lasting asystole on 04/06/2017 One of 2 blood cultures positive for Gram Positive Den, ? contaminant DM II, newly diagnosed Morbid obesity Probably obstructive sleep apnea Tobaccoism Tinea corporis Copious thick nasal secretions from R nare, culture NGTD PCN allergy per records Elevated D-dimer Recommendation: I would start him on Vancomycin for now, and wait for more information from the micro lab regarding the GPR. If this is identified as a corynebacterium or bacillus sp (not anthracis), then it is most likely a contaminant, and the Vancomycin can be stopped. Continue cefepime for now (and levaquin). Would complete 7 days of antibiotics for pneumonia. He does not need contact precautions. Thanks for the consultation. I'll be out later this week, will return next week.
[2017-04-08] MEDS: ENOXAPARIN 80 MG/0.8 ML INJECTION SQ SCH ×4 (10:04→10:46)
[2017-04-08] MEDS: LEVOFLOXACIN PB 750 MG/150 ML BAG IV SCH ×2 (10:15→10:46)
[2017-04-08] MEDS ORDERED: CEFAZOLIN 2 G in NS 100 ML IV SCH (11:45)
--- NOTE | 2017-04-08 11:57 | Pulmonology Progress Note ---
Subjective Principal diagnosis: Pna, sepsis Interval history: Pt currently on the vent sedated with fentanyl and versed, no distress noted at this time. Currently on vent settings AC/VC+, Vt 500, rate 18, Peep 12, FiO2 down to 85%. SPo2 93. Oral secretions, likely from sinuses were cultured today, results neg so far . minimal sputum noted with suctioning and and 3%. Exam Vital signs: Temperature 98.1 F 04/08/17 08:00 Pulse Rate 63 04/08/17 11:13 Respiratory Rate 22 04/08/17 11:13 Blood Pressure 114/59 04/08/17 10:30 Pulse Oximetry 92 04/08/17 11:13 - Constitutional no acute distress - Routine HEENT Exam Head: Present: normocephalic, atraumatic Eye: Present: EOMI. Absent: conjunctival icterus - Routine Neck Exam Present: supple, full ROM - Routine Respiratory Exam Present: patient mechanically ventilated, decreased breath sounds - Routine Cardiovascular Exam Present: RRR - Routine Abdominal Exam Present: soft, distended. Absent: guarding - Routine Skin Exam Absent: cyanosis - Urinary Catheter Management Urethral Cath placed during this visit: yes Insertion date: 04/02/17 Insertion time: 22:20 Assessment and Plan (1) Acute respiratory failure with hypoxia Status: Acute Assessment and plan: continue PEEP 12. Wean Fio2 as tolerated. hopefully we can get that down to < 60% so that we can start to wean peep Current Visit: Yes (2) ARDS (adult respiratory distress syndrome) Status: Acute Current Visit: Yes (3) Community acquired pneumonia Status: Acute Assessment and plan: WBC improving. No fever. CXR shows improved lung expansion Current Visit: No - Assessment and Plan Acute Hypoxic hypercapnic Respiratory Failure CAP Pneumonia Sepsis/ARDS Likely COPD Likely GLADYS - will need OP PSG Fluid overload Plan: Pt currently on the vent f18, Vt 500, peep 12, 100%, sats 93%, ABG 7.36/78/70, increased RR to 22, follow. Triglycerides 600 this am with bradycardia requiring chest compressions, stopping propofol and starting versed gtt. Pt likely with GLADYS and may need OP PSG vs home NIPPV. Currently on a/a q4hr, pulmicort BID, solumedrol 40 q6, 3% q6, BC NTD, sputum cx with NF, still on rocephin and levaquin, WBC improving, last bands improved to 4. Post code Lactate 3, BNP normal, procalcitonin 0.4, triponin normal. Currently on TF per , and free water. CXR: cardiomegaly and congestion but improving RUL/RML infiltrate. Awaiting echo results s/p code, Dr. Mauricio consulted. On lasix 40mg BID, I/O -1.3L. BLE Doppler neg, D-dimer 555 restarting therapeutic lovenox per primary. Pt still critically ill and will follow closely. - Time Spent With Patient Total time spent is greater than 50% in coordination of care (as documented) at patient's floor/unit and/or counseling patient: 25 - 35 minutes
[2017-04-08] MEDS: CEFEPIME 2 GM in NS 100 ML IV SCH ×2 (12:25→20:12)
[2017-04-08] MEDS: ENOXAPARIN 40 MG/0.4 ML INJECTION SQ SCH (12:30)
--- NOTE | 2017-04-08 15:24 | Cardiology Progress Note ---
Subjective Principal diagnosis: bradycardia Interval history: Gianni is seen in follow up for bradycardia. He remains sedated on the ventilator. His family is at the bedside. His swelling appears improved from Friday. Exam Vital signs: Temperature 98.1 F 04/08/17 08:00 Pulse Rate 65 04/08/17 14:00 Respiratory Rate 22 04/08/17 14:00 Blood Pressure 111/59 04/08/17 14:00 Pulse Oximetry 93 04/08/17 14:00 - Constitutional no acute distress, morbidly obese - Routine HEENT Exam Head: Present: normocephalic ENT: Present: mucous membranes moist - Routine Respiratory Exam Present: CTA bilaterally, diminished air movement (anteriorly) - Routine Cardiovascular Exam Present: RRR, no murmur - Routine Abdominal Exam Present: soft, normoactive bowel sounds - Routine Extremities Exam Present: edema - Routine Skin Exam Present: intact, dry, warm - Routine Psychiatric Exam Present: unable to assess - Additional findings Additional findings: Acetaminophen (Tylenol) 650 mg PO Q5H PRN PRN Reason: Discomfort Albuterol/Ipratropium (Duoneb) 3 ml AEROSOL Q2HR PRN Last Admin: 04/08/17 09:18 Dose: 3 ml Albuterol/Ipratropium (Duoneb) 3 ml AEROSOL Q4HR [facility] Last Admin: 04/08/17 15:24 Dose: 3 ml Artificial Tears (Refresh Classic) 1 drop EACH EYE PRN PRN Last Admin: 04/07/17 21:10 Dose: 1 drop Bisacodyl (Dulcolax) 10 mg RECTALLY DAILY PRN PRN Reason: Constipation Bisacodyl (Dulcolax) 10 mg RECTALLY Q12HR [facility] Last Admin: 04/08/17 08:24 Dose: 10 mg Budesonide (Pulmicort Inhalation) 0.5 mg AEROSOL RTBID [facility] Last Admin: 04/08/17 07:08 Dose: 0.5 mg Dextrose (D50%W) 20 ml IVP PRN PRN PRN Reason: Hypoglycemia Enoxaparin Sodium (Lovenox) 40 mg SQ DAILY [facility] Last Admin: 04/08/17 12:30 Dose: 40 mg Furosemide (Lasix) 20 mg IVP Q12HR [facility] Last Admin: 04/08/17 08:53 Dose: 20 mg Guaifenesin (Robitussin Liq) 400 mg PO Q6HR [facility] Last Admin: 04/08/17 14:46 Dose: 400 mg Fentanyl 1,000 mcg/ Sodium (Chloride) 100 mls @ 5 mls/hr IV .Q20H PRN; Protocol PRN Reason: Sedation Last Admin: 04/08/17 13:19 Dose: 20 mls/hr Levofloxacin/Dextrose (Levaquin Premix) 750 mg in 150 mls @ 100 mls/hr IV Q24H [facility] Last Admin: 04/08/17 10:46 Dose: 150 mls/hr Midazolam HCl 100 mg/ Sodium (Chloride) 100 mls @ 0 mls/hr IV .Q0M PRN; Protocol; Per Protocol PRN Reason: VENT SEDATION Last Admin: 04/08/17 12:52 Dose: 14 mls/hr Cefepime HCl 2 gm/ Sodium (Chloride) 100 mls @ 200 mls/hr IV Q8H [facility] Last Admin: 04/08/17 12:25 Dose: 200 mls/hr Vancomycin HCl 2,000 mg/ (Sodium Chloride) 500 mls @ 250 mls/hr IV Q8H [facility] Last Admin: 04/08/17 12:17 Dose: 250 mls/hr Insulin Aspart (Novolog) 3 - 12 unit SQ SS PRN; Protocol PRN Reason: Hyperglycemia Last Admin: 04/08/17 05:37 Dose: 4 unit Insulin Aspart (Novolog) 5 unit SQ 0001,0600,1200,1800 [facility] Last Admin: 04/08/17 12:44 Dose: Not Given Insulin Glargine (Lantus) 30 unit SQ DAILY [facility] Lorazepam (Ativan Inj) 2 mg IVP Q1H PRN PRN Reason: Anxiety/Restlessness Magnesium Hydroxide (Mom) 30 ml PO DAILY PRN PRN Reason: Constipation Menthol (Ricola Sf) 1 lozenge MM PRN PRN PRN Reason: Cough Methylprednisolone Sodium Succinate (Solu-Medrol) 40 mg IVP Q8HR [facility] Last Admin: 04/08/17 08:53 Dose: 40 mg Metoclopramide HCl (Reglan) 5 mg IVP Q6HR [facility] Last Admin: 04/08/17 14:46 Dose: 5 mg Pantoprazole Sodium (Protonix Iv) 40 mg IVP BID [facility] Last Admin: 04/08/17 08:54 Dose: 40 mg Sodium Chloride (Iv Flush) 10 - 80 ml IV PRN PRN PRN Reason: Flushing Last Admin: 04/08/17 04:11 Dose: 50 ml Sodium Chloride (Sodium Chloride 3% Inhal) 3 ml AEROSOL Q6HR [facility] Last Admin: 04/08/17 15:24 Dose: 3 ml Terbinafine HCl (Lamisil At) 1 applic TOP BID [facility] Last Admin: 04/08/17 08:56 Dose: 1 applic - Urinary Catheter Management Urethral Cath placed during this visit: yes Insertion date: 04/02/17 Insertion time: 22:20 Results 04/08/17 04:10 04/08/17 04:10 Cardiac Enzymes 04/08/17 Range/Units 04:10 AST 75 H D (17-59) U/L CBC 04/08/17 Range/Units 04:10 WBC 13.3 H (4.5-11.0) T/MM3 RBC 4.54 (4.50-5.90) M/MM3 Hgb 14.0 (13.5-17.5) GM/DL Hct 45.7 (41-53) % Plt Count 258 (130-400) T/MM3 Comprehensive Metabolic Panel 04/08/17 Range/Units 04:10 Sodium 146 H (134-144) MEQ/L Potassium 4.9 (3.6-5) MEQ/L Chloride 100 (98-107) MEQ/L Carbon Dioxide 38 H (22-30) MEQ/L BUN 40.0 H (9-20) MG/DL Creatinine 0.8 (0.8-1.5) MG/DL Glucose 215 H (75-110) MG/DL Calcium 9.3 (8.4-10.2) MG/DL AST 75 H D (17-59) U/L ALT 105 H (21-72) U/L Alkaline Phosphatase 67 (38-126) U/L Total Protein 7.6 (6.3-8.2) G/DL Albumin 3.8 (3.5-5.0) G/DL Intake and Output 04/08/17 04/08/17 04/08/17 06:59 14:59 22:59 Intake Total 924.517 / 924.517 962 / 962 Output Total 1100 / 1100 785 / 785 Balance -175.483 / -175.483 177 / 177 Intake: IV 244.517 / 244.517 112 / 112 FentaNYL 1,000 mcg In Ns 80 ml 160 / 160 34 / 34 @ 5 mls/hr IV .Q20H PRN Rx#: [id number] Midazolam 100 mg In RTU-Saline 22 / 22 78 / 78 0 ml @ Per Protocol IV .Q0M PRN Rx#:[id number] Midazolam 100 mg In Ns 0 ml @ 60 / 60 12 mls/hr IVP .Q8H20M ONE Rx#: [id number] Tube Feeding 280 / 280 320 / 320 Left Nare 280 / 280 320 / 320 Intake, Gastric Tube Irrigant 400 / 400 530 / 530 Amount Left Nare 60 / 60 30 / 30 Oral 340 / 340 500 / 500 Output: Urine Amount (Catheter) 1100 / 1100 785 / 785 Other: Urine Appearance Clear Clear Sediment Urine Color Dark Yellow Yellow Weight 325 lb 9.964 oz Patient Weight 04/09/17 06:59 Weight 325 lb 9.964 oz - Imaging and Cardiology Imaging & Cardiology Narrative: Date of Exam: 04/08/17 Ordering Provider: Luisa Green APRN Type of Exam(s): XR chest 1V Reason for Exam(s): Respiratory Failure Indication: Respiratory Failure PROCEDURE: XR chest 1V: Encounter: Initial Comparison: April 07, 2017 Findings: Support devices are stable. Appearance of the lungs is stable allowing for differences in exposure technique. No new or worsening infiltrates. Small effusions. No gross pneumothorax. Heart size and mediastinal contours are unchanged. Pulmonary vascularity is stable. Impression: No change. 04/08/17 15:25 Assessment and Plan - Assessment and Plan (1) Bradycardia Current visit: Yes Status: Acute No further bradycardia or pauses seen on telemetry - Will continue to monitor telemetry (2) Community acquired pneumonia Current visit: No Status: Acute (3) Acute respiratory failure with hypoxia Current visit: Yes Status: Acute - Assessment and Plan 04/06/17 Possibly related to anesthesia Or vagal with positioning for chest x-ray - NSR now, EKG obtained is WNL - Echo reviewed remotely by . He reports: EF 65%, Mild TR, Mild MR, PAP 42, trace PI, essentially the same as on 04/03/17. - Obtain TSH with reflex T4. K+ 4.6, Mag 2.6 today - Continue to monitor cardiac telemetry I examined this patient independently and discussed findings with Dr. Mauricio. He reviewed electronic medical record, including echo and together we agreed on the plan of care. Thank you for allowing us to participate in the care of this patient, we will follow along with you. 04/08/17 No further bradycardia or pauses seen on telemetry - Will continue to monitor telemetry Hospital Course Summary Disclaimer: The visit summary below is not to be considered part of the above Progress Note. Hospital Course: Assessment Respiratory insufficiency with hypoxia Sepsis secondary to pneumonia Manifestations: Tachycardia, tachypnea, leukocytosis Community-acquired pneumonia Anasarca Morbid obesity-BMI 42.0 Hyperglycemia-POA Tinea corporis Tobacco dependence 04/02/17 Hospital admission Admit to inpatient status under the care of the hospitalist service, Dr. Lewis attending. It is expected that his stay will exceed 2 overnights given his sepsis secondary to pneumonia and overall condition. SCDs and Lovenox for DVT prophylaxis Urinalysis for laboratory completeness. Repeat CBC and BMP in am to follow leukocytosis, renal function and electrolytes. Schedule echocardiogram to evaluate cardiac structure and function given his anasarca and dyspnea. Oxygen, DuoNeb treatments, Acapella, and guaifenesin for respiratory symptoms. Continue Rocephin and Zithromax initiated and the emergency room. Blood cultures were drawn prior to antibiotic initiation. RT consult tobacco cessation. Terbinafine topically for his tinea corporis Patient wishes to be a full code. Case discussed with Dr. Lewis. Case management will need to assist in finding patient a PCP. 04/04/17 12:03 Plan The patient continues to require mechanical ventilation and is on 100% FiO2 regarding his ARDS and pneumonia. Continue ventilator support - Dr. Pineda is following. His help is greatly appreciated. Continue Levaquin initiated 04/03/2017 and Rocephin initiated 04/02/2017 Continue Solu-Medrol Discussed with Dr. Pineda, will change Lovenox to prophylactic dose. Venous Doppler of the legs were negative for DVT. No signs of right heart strain on echocardiogram. Advance tube feedings Nutren luminary 1.5 to goal of 70 ML's per hour. Start free water 400 ML's every 8 hours. DC IV fluids Vishal blood pressure off of IV fluids. May need to initiate antihypertensive Start Lantus 10 units subcutaneous daily. Increase to medium dose sliding scale insulin. Continue Lasix 40 mg IV every 12. Patient is diuresing well. Check CBC and renal panel tomorrow. Chest x-ray tomorrow. Assess with Dr. Pineda, the patient's significant other, and the patient's nurse. 04/05/17 09:31 Plan The patient continues to require mechanical ventilation and is now on 95% FiO2 regarding his ARDS and pneumonia. Continue ventilator support per Dr. Pineda Continue Levaquin initiated 04/03/2017 and Rocephin initiated 04/02/2017. Continue Solu-Medrol Regarding hyperkalemia, will try to change to feeding to a renal tube feeds. Check ABG. (7.32/79/103 on 95% FiO2) Recheck basic metabolic profile later today. May need to increase fluids followed by diuresis for hyperkalemia Increase Lantus to 20 units subcutaneous daily for hyperglycemia. Increase sliding scale insulin to high dose Start Reglan and Dulcolax suppositories to stimulate GI tract. Decrease tube feed rate to 50 ML's for now. Greater than 40 minutes critical care time. 04/07/2017 Plan The patient continues to require mechanical ventilation and FiO2 100% regarding his ARDS and pneumonia. The patient has tolerated discontinuation of propofol and initiation of Versed. The patient is tolerating his tube feedings. Will advance as tolerated. Will increase free water to 200 ML's every 4 hours and decrease Lasix to 20 mg IV every 12 regarding his elated sodium. Continue to monitor blood pressure closely. Continue Levaquin initiated 04/03/2017 and Rocephin initiated 04/02/2017. Continue Solu-Medrol Regarding hyperkalemia-is resolved. Continue renal tube feeds Continue Reglan and Dulcolax suppositories to stimulate GI tract. Greater than 45 minutes of critical care time spent seeing and evaluating the patient. The patient's brother was updated. 04/08/17 09:49 Plan Overall, the patient is stable. He is diuresing well. Weight is down approximately 22 kg over the past 1 week. He has been on the ventilator for one week now. FiO2 turned down to 95% this morning. Consulted Dr. Johnson regarding positive blood culture and antibiotic recommendations The patient continues to require mechanical ventilation regarding his ARDS and pneumonia. FiO2 down to 95% this morning The patient is tolerating his tube feedings. Will advance as tolerated to goal. Will increase free water to 250 ML's every 4 hours. Continue Lasix 20 mg IV every 12. Continue to monitor blood pressure closely. Continue Levaquin initiated 04/03/2017 and Rocephin initiated 04/02/2017. Continue Solu-Medrol and breathing treatments Regarding hyperkalemia- Continue renal tube feeds Continue Reglan and Dulcolax suppositories to stimulate GI tract. Regarding possible mild upper GI bleed, will Gastric occult NG drainage. Hold Lovenox for now. Greater than 45 minutes of critical care time spent seeing and evaluating the patient.
--- NOTE | 2017-04-08 15:28 | Pharmacy Consult-Antibiotics ---
Pharmacy Consult-Vancomycin - Laboratory Information WBC 13.3 T/MM3 (4.5-11.0) H 04/08/17 04:10 BUN 40.0 MG/DL (9-20) H 04/08/17 04:10 Creatinine 0.8 MG/DL (0.8-1.5) 04/08/17 04:10 Procalcitonin 0.40 NG/ML 04/06/17 03:52 - Consult Information VANCOMYCIN CONSULT: Dx: Community acquired pneumonia LAYNE is a 42 yo male who presented to the ER with acute hypoxic respiratory failure, sesis secondary to pneumonia ( Manifestations: Tachycardia, tachypnea , leukocytosis), and Anasarca. Current Renal Function: S Cr = 0.8 mg/dl. Estimated Cr Cl ~ 181 ml/min. I started Vancomycin 2.000 mg IV q8hrs. The patient is currently on Cefepime 2 g iv every 8 hours and Levofloxacin 750 mg iv every 24 hours. The pharmacy will continue to monitor and adjust regimen to maintain therapeutic levels. Thank you for the Vancomycin dosing Protocol, Ryan Villeda, Pharmacist. .
[2017-04-09] MEDS: FentaNYL 1,000 MCG in NS 80 ML IV PRN ×5 (00:01→20:56)
[2017-04-09] MEDS: INSULIN ASPART 100unit/ml INJECTION SQ PRN ×3 (00:12→12:12)
[2017-04-09] MEDS: INSULIN ASPART 100unit/ml INJECTION SQ SCH ×4 (00:42→18:23)
[2017-04-09] MEDS: METHYLPREDNISOLONE SOD SUCC 125mg/2ml INJECTION IVP SCH ×3 (01:00→17:31)
[2017-04-09] MEDS: METOCLOPRAMIDE 10mg/2ml INJECTION IVP SCH ×4 (03:06→21:22)
[2017-04-09] MEDS: CEFEPIME 2 GM in NS 100 ML IV SCH ×3 (03:06→20:04)
[2017-04-09] MEDS: GUAIFENESIN 200mg/10ml ORAL LIQUID PO SCH ×2 (03:08→08:52)
[2017-04-09] MEDS: ALBUTEROL/IPRATROPIUM 2.5mg-0.5mg/3ml NEB AEROSOL SCH ×6 (03:44→23:26)
[2017-04-09] MEDS: SODIUM CL 3% INHAL.SOLN 15ml NEB AEROSOL SCH ×4 (03:44→21:26)
[2017-04-09] MEDS: MIDAZOLAM IV PRN ×3 (03:58→21:46)
[2017-04-09] MEDS: RTU SALINE IV PRN ×3 (03:58→21:46)
[2017-04-09] MEDS: BUDESONIDE INH.SOLN 0.5mg/2ml NEB AEROSOL SCH ×2 (07:00→18:37)
--- NOTE | 2017-04-09 08:32 | XRay Report ---
Indication: Respiratory Failure PROCEDURE: XR chest 1V: Encounter: Initial Comparison: April 08, 2017 Findings: Support devices appear stable. Increasing atelectasis in the right upper lobe with stable bilateral lower lobe airspace disease. No pneumothorax. Small left pleural effusion. Heart size and mediastinal contours are stable. Impression: Increasing right upper lobe atelectasis. .
[2017-04-09] MEDS: FUROSEMIDE 20 MG/2 ML INJECTION IVP SCH ×2 (08:41→21:21)
[2017-04-09] MEDS: SALINE FLUSH 10ml SYRINGE IV PRN ×4 (08:45→17:31)
[2017-04-09] MEDS: REFRESH CLASSIC Eye Drops 0.4ml EACH EYE PRN (08:46)
[2017-04-09] MEDS: PANTOPRAZOLE 40 MG INJECTION IVP SCH ×2 (08:47→21:21)
[2017-04-09] MEDS: ENOXAPARIN 40 MG/0.4 ML INJECTION SQ SCH (08:56)
[2017-04-09] MEDS: BISACODYL 10 MG SUPPOSITORY RECTALLY SCH ×2 (09:05→20:04)
[2017-04-09] MEDS: TERFINAFINE 1% CREAM 12 G TUBE TOP SCH ×2 (09:06→20:05)
[2017-04-09] MEDS: INSULIN GLARGINE 100unit/ml INJECTION SQ SCH (09:17)
--- NOTE | 2017-04-09 09:32 | Pulmonology Progress Note ---
<Luisa Green D - Last Filed: 04/09/17 09:23> Subjective Principal diagnosis: bradycardia Interval history: Pt currently on the vent sedated with fentanyl and versed, no distress noted at this time. Currently on vent settings AC/VC+, Vt 500, rate 18, Peep 12, FiO2 down to 80%. SPo2 94. Minimal sputum noted with suctioning on 3%. Exam Vital signs: Temperature 100.4 F 04/09/17 04:00 Pulse Rate 69 04/09/17 07:12 Respiratory Rate 24 04/09/17 07:12 Blood Pressure 109/59 04/09/17 06:45 Pulse Oximetry 94 04/09/17 07:12 - Constitutional no acute distress, morbidly obese, other Comments: sedated on the vent - Routine HEENT Exam Head: Present: normocephalic, atraumatic Eye: Present: PERRL - Routine Neck Exam Present: supple, trachea midline - Routine Respiratory Exam Present: decreased breath sounds - Routine Cardiovascular Exam Present: RRR, S1, S2, no murmur - Routine Abdominal Exam Present: soft, normoactive bowel sounds - Routine Extremities Exam Present: edema, non tender - Routine Skin Exam Present: intact, dry - Routine Neurological Exam sedated on the vent, does respond to painful stimuli - Routine Psychiatric Exam Present: unable to assess - Urinary Catheter Management Urethral Cath placed during this visit: yes Reason for continuing: Accurate I&O/Aggressive Diuresis Insertion date: 04/02/17 Insertion time: 22:20 Assessment and Plan - Assessment and Plan Acute Hypoxic hypercapnic Respiratory Failure CAP Pneumonia Sepsis/ARDS Likely COPD Likely GLADYS - will need OP PSG Fluid overload Plan: Pt currently on the vent f22, Vt 500, peep 12, 80%, sats 94%. Currently on fent/ versed gtt and tolerating well, no issues noted. CXR with improving RML infiltrate but with increase in RLL otherwise stable on L. Currently on a/a q4hr , pulmicort BID, solumedrol 40 q8, 3% q6, BC NTD, sputum cx with NF, still on cefepime and levaquin, WBC up slightly 13.3>15.1, bands 14, BC + corynebacterium per ID, follow closely, afebrile. Could recheck procalcitonin. Currently on TF per DH, and free water 250 q4, NA slightly elev 148, K+ 5 on renal TF, follow closely. On lasix 40mg BID, I/O -2.3L. Pt still critically ill and will follow closely. - Time Spent With Patient Total time spent is greater than 50% in coordination of care (as documented) at patient's floor/unit and/or counseling patient: 25 - 35 minutes <Artur Pineda - Last Filed: 04/09/17 10:50> Exam Vital signs: Temperature 100.4 F 04/09/17 04:00 Pulse Rate 65 04/09/17 09:19 Respiratory Rate 22 04/09/17 09:19 Blood Pressure 109/59 04/09/17 06:45 Pulse Oximetry 94 04/09/17 09:19 - Urinary Catheter Management Urethral Cath placed during this visit: no Assessment and Plan (1) Acute respiratory failure with hypoxia Status: Acute Assessment and plan: FiO2 80% today. continue to wean FIO2 as tolerated. continue peep 12. fentanyl/versed for sedation RT neb meds, saline and CPT as needed Current Visit: Yes (2) ARDS (adult respiratory distress syndrome) Status: Acute Current Visit: Yes (3) Community acquired pneumonia Status: Acute Assessment and plan: on empiric Abx. sinusitis with Corynebacterium. Current Visit: No - Time Spent With Patient Total time spent is greater than 50% in coordination of care (as documented) at patient's floor/unit and/or counseling patient:
[2017-04-09] MEDS: LEVOFLOXACIN PB 750 MG/150 ML BAG IV SCH (10:15)
--- NOTE | 2017-04-09 10:32 | Cardiology Progress Note ---
Subjective Principal diagnosis: bradycardia Interval history: Gianni is seen in follow up for bradycardia. He remains sedated on the ventilator. Per Rn he does have purposeful movements when stimulated. He remains in SR. VSS. Exam Vital signs: Temperature 100.4 F 04/09/17 04:00 Pulse Rate 65 04/09/17 09:19 Respiratory Rate 22 04/09/17 09:19 Blood Pressure 109/59 04/09/17 06:45 Pulse Oximetry 94 04/09/17 09:19 - Constitutional no acute distress, morbidly obese Comments: Sedated on Ventilator - Routine HEENT Exam ENT: Present: mucous membranes moist - Routine Neck Exam Absent: JVD - Routine Respiratory Exam Present: CTA bilaterally Comments: Ventilator at 80% - Routine Cardiovascular Exam Present: RRR, no murmur - Routine Abdominal Exam Present: soft, distended - Routine Extremities Exam Present: edema (mild edema in ankles. ), pulses intact - Routine Skin Exam Present: intact, dry, normal turgor - Routine Neurological Exam Sedated while on vent - Routine Psychiatric Exam Present: unable to assess - Urinary Catheter Management Urethral Cath placed during this visit: yes Insertion date: 04/02/17 Insertion time: 22:20 Results 04/09/17 03:57 04/09/17 03:57 Cardiac Enzymes 04/09/17 Range/Units 03:57 AST 68 H (17-59) U/L CBC 04/09/17 Range/Units 03:57 WBC 15.1 H (4.5-11.0) T/MM3 RBC 4.39 L (4.50-5.90) M/MM3 Hgb 13.6 (13.5-17.5) GM/DL Hct 44.6 (41-53) % Plt Count 247 (130-400) T/MM3 Comprehensive Metabolic Panel 04/09/17 Range/Units 03:57 Sodium 148 H (134-144) MEQ/L Potassium 5.0 (3.6-5) MEQ/L Chloride 103 (98-107) MEQ/L Carbon Dioxide 37 H (22-30) MEQ/L BUN 41.0 H (9-20) MG/DL Creatinine 0.9 (0.8-1.5) MG/DL Glucose 244 H (75-110) MG/DL Calcium 9.2 (8.4-10.2) MG/DL AST 68 H (17-59) U/L ALT 132 H (21-72) U/L Alkaline Phosphatase 61 (38-126) U/L Total Protein 7.0 (6.3-8.2) G/DL Albumin 3.4 L (3.5-5.0) G/DL Intake and Output 04/08/17 04/09/17 04/09/17 22:59 06:59 14:59 Intake Total 1459.833 / 7831.205 1542.733 / 1043.733 392.667 / 392.667 Output Total 1660 / 1660 1150 / 1150 980 / 980 Balance -200.167 / -200.167 -106.267 / -106.267 -587.333 / -587.333 Intake: IV 819.833 / 819.833 613.733 / 613.733 342.667 / 342.667 Cefepime 2 gm In Ns 100 ml @ 100 / 100 100 / 100 200 mls/hr IV Q8H [facility] Rx#: [id number] FentaNYL 1,000 mcg In Ns 80 ml 157.666 / 157.666 148.000 / 148.000 80.667 / 80.667 @ 5 mls/hr IV .Q20H PRN Rx#: [id number] Midazolam 100 mg In RTU-Saline 108.000 / 108.000 78.233 / 78.233 12 / 12 0 ml @ Per Protocol IV .Q0M PRN Rx#:[id number] Vancomycin 2,000 mg In NS 500ml 454.167 / 454.167 287.500 / 287.500 250 / 250 500 ml @ 250 mls/hr IV Q8H [facility] Rx#:[id number] Tube Feeding 300 / 300 400 / 400 50 / 50 Left Nare 300 / 300 400 / 400 50 / 50 Intake, Gastric Tube Irrigant 340 / 340 30 / 30 Amount Left Nare 90 / 90 30 / 30 Oral 250 / 250 Output: Urine Amount (Catheter) 1660 / 1660 1150 / 1150 980 / 980 Other: Urine Appearance Clear Clear Sediment Urine Color Yellow Yellow Urine Odor Normal - Imaging and Cardiology Imaging & Cardiology Narrative: 04/06/2017 echo IMPRESSION 1. Normal LV systolic function with ejection fraction of about 65%. 2. Mild mitral regurgitation. 3. Mild tricuspid regurgitation with mild pulmonary hypertension with estimated pulmonary artery systolic pressure of 42. 4. Trace of pulmonary insufficiency. 04/08/2017 CXR Findings: Support devices are stable. Appearance of the lungs is stable allowing for differences in exposure technique. No new or worsening infiltrates. Small effusions. No gross pneumothorax. Heart size and mediastinal contours are unchanged. Pulmonary vascularity is stable. Impression: No change. - EKG Interpretation EKG: sinus rhythm (04/06/2017) Assessment and Plan - Assessment and Plan (1) Community acquired pneumonia Current visit: No Status: Acute (2) Acute respiratory failure with hypoxia Current visit: Yes Status: Acute (3) Bradycardia Current visit: Yes Status: Acute - Assessment and Plan 04/06/17 Possibly related to anesthesia Or vagal with positioning for chest x-ray - NSR now, EKG obtained is WNL - Echo reviewed remotely by . He reports: EF 65%, Mild TR, Mild MR, PAP 42, trace PI, essentially the same as on 04/03/17. - Obtain TSH with reflex T4. K+ 4.6, Mag 2.6 today - Continue to monitor cardiac telemetry 04/08/17 No further bradycardia or pauses seen on telemetry - Will continue to monitor telemetry 04/09/2017 Bradycardia: On 04/06/2017 he went bradycardic. Likely due to vagal response with repositioning. 04/06/2017 ECG: NSR. Echo: EF 65%, mild MR/TR, PAP 42 K+, Mag and TSH wnl. Tele: SR - no further bradycardia or pauses seen on telemetry. Respiratory failure/ARDS/pneumonia On vent - FIO2 80%, sedated on versed and fentanyl. Receiving Lasix 20mg IV BID per pulm for large U/O. Thank you for allowing us to participate in the care of this patient, we will follow along with you. Hospital Course Summary Disclaimer: The visit summary below is not to be considered part of the above Progress Note. Hospital Course: Assessment Respiratory insufficiency with hypoxia Sepsis secondary to pneumonia Manifestations: Tachycardia, tachypnea, leukocytosis Community-acquired pneumonia Anasarca Morbid obesity-BMI 42.0 Hyperglycemia-POA Tinea corporis Tobacco dependence 04/02/17 Hospital admission Admit to inpatient status under the care of the hospitalist service, Dr. Lewis attending. It is expected that his stay will exceed 2 overnights given his sepsis secondary to pneumonia and overall condition. SCDs and Lovenox for DVT prophylaxis Urinalysis for laboratory completeness. Repeat CBC and BMP in am to follow leukocytosis, renal function and electrolytes. Schedule echocardiogram to evaluate cardiac structure and function given his anasarca and dyspnea. Oxygen, DuoNeb treatments, Acapella, and guaifenesin for respiratory symptoms. Continue Rocephin and Zithromax initiated and the emergency room. Blood cultures were drawn prior to antibiotic initiation. RT consult tobacco cessation. Terbinafine topically for his tinea corporis Patient wishes to be a full code. Case discussed with Dr. Lewis. Case management will need to assist in finding patient a PCP. 04/04/17 12:03 Plan The patient continues to require mechanical ventilation and is on 100% FiO2 regarding his ARDS and pneumonia. Continue ventilator support - Dr. Pineda is following. His help is greatly appreciated. Continue Levaquin initiated 04/03/2017 and Rocephin initiated 04/02/2017 Continue Solu-Medrol Discussed with Dr. Pineda, will change Lovenox to prophylactic dose. Venous Doppler of the legs were negative for DVT. No signs of right heart strain on echocardiogram. Advance tube feedings Nutren luminary 1.5 to goal of 70 ML's per hour. Start free water 400 ML's every 8 hours. DC IV fluids Vishal blood pressure off of IV fluids. May need to initiate antihypertensive Start Lantus 10 units subcutaneous daily. Increase to medium dose sliding scale insulin. Continue Lasix 40 mg IV every 12. Patient is diuresing well. Check CBC and renal panel tomorrow. Chest x-ray tomorrow. Assess with Dr. Pineda, the patient's significant other, and the patient's nurse. 04/05/17 09:31 Plan The patient continues to require mechanical ventilation and is now on 95% FiO2 regarding his ARDS and pneumonia. Continue ventilator support per Dr. Pineda Continue Levaquin initiated 04/03/2017 and Rocephin initiated 04/02/2017. Continue Solu-Medrol Regarding hyperkalemia, will try to change to feeding to a renal tube feeds. Check ABG. (7.32/79/103 on 95% FiO2) Recheck basic metabolic profile later today. May need to increase fluids followed by diuresis for hyperkalemia Increase Lantus to 20 units subcutaneous daily for hyperglycemia. Increase sliding scale insulin to high dose Start Reglan and Dulcolax suppositories to stimulate GI tract. Decrease tube feed rate to 50 ML's for now. Greater than 40 minutes critical care time. 04/07/2017 Plan The patient continues to require mechanical ventilation and FiO2 100% regarding his ARDS and pneumonia. The patient has tolerated discontinuation of propofol and initiation of Versed. The patient is tolerating his tube feedings. Will advance as tolerated. Will increase free water to 200 ML's every 4 hours and decrease Lasix to 20 mg IV every 12 regarding his elated sodium. Continue to monitor blood pressure closely. Continue Levaquin initiated 04/03/2017 and Rocephin initiated 04/02/2017. Continue Solu-Medrol Regarding hyperkalemia-is resolved. Continue renal tube feeds Continue Reglan and Dulcolax suppositories to stimulate GI tract. Greater than 45 minutes of critical care time spent seeing and evaluating the patient. The patient's brother was updated. 04/08/17 09:49 Plan Overall, the patient is stable. He is diuresing well. Weight is down approximately 22 kg over the past 1 week. He has been on the ventilator for one week now. FiO2 turned down to 95% this morning. Consulted Dr. Johnson regarding positive blood culture and antibiotic recommendations The patient continues to require mechanical ventilation regarding his ARDS and pneumonia. FiO2 down to 95% this morning The patient is tolerating his tube feedings. Will advance as tolerated to goal. Will increase free water to 250 ML's every 4 hours. Continue Lasix 20 mg IV every 12. Continue to monitor blood pressure closely. Continue Levaquin initiated 04/03/2017 and Rocephin initiated 04/02/2017. Continue Solu-Medrol and breathing treatments Regarding hyperkalemia- Continue renal tube feeds Continue Reglan and Dulcolax suppositories to stimulate GI tract. Regarding possible mild upper GI bleed, will Gastric occult NG drainage. Hold Lovenox for now. Greater than 45 minutes of critical care time spent seeing and evaluating the patient.
--- NOTE | 2017-04-09 19:43 | Progress Note ---
- Date 04/09/17 Subjective: The patient was seen this morning in CCU. He continues to be on the ventilator and sedated on propofol and fentanyl. He had a good night and we have been able to wean down his oxygen. By this evening, he was down to 70% FiO2. Urine output has remained good. He is tolerating tube feeding. He has had minimal stool. His daughter stated that he has lactose intolerance and lactose causes constipation for him. He has had no further bradycardic episodes. Objective Vital signs: Temperature 99.4 F 04/09/17 16:00 Pulse Rate 66 04/09/17 18:37 Respiratory Rate 22 04/09/17 18:37 Blood Pressure 119/61 04/09/17 16:00 Pulse Oximetry 93 04/09/17 18:37 Rhythm: Sinus Tachycardia Height/Weight/BMI: Height 1.8 m Weight 146.8 kg Body Mass Index 51.2 Comments: I&O yesterday 4080/3575 O2 sat this morning was 94% on 80% FiO2 GEN-sedated on the ventilator, occasionally moves all 4 extremities. Currently no acute distress HEENT-sclera anicteric, pupils equal and round. Dobbhoff is in the right nares. He is orally intubated NECK-IJ in place CV-regular rate and rhythm CHEST-coarse breath sounds bilaterally ABD-soft, obese, hypoactive bowel sounds. -Walker in place with good urine output EXT-+1 pedal edema, markedly improved since admission. +1 medial thigh edema NEURO-sedated on the ventilator SKIN-face has a lori complexion which is normal for him, face is diaphoretic which has been present since admission, ringworm in the right axilla, chest and feet Results - Labs CBC & Chem 7: 04/09/17 03:57 04/09/17 03:57 Labs: Pro-calcitonin today 0.22 this is down from the 24th when it was 0.40 AST is 68 down from 75 ALT is 132 up from 105 DOS strength is pending Phosphorus is normal, calcium is normal Microbiology Results: Microbiology 04/06/17 11:03 Port/Picc Blood Culture - Preliminary No Growth After 3 Days 04/09/17 10:00 Port/Picc Blood Culture - Preliminary Culture Initiated - Results Pending 04/09/17 09:24 Port/Picc Blood Culture - Preliminary Culture Initiated - Results Pending 04/06/17 10:37 Port/Picc Gram Stain - Final 04/06/17 10:37 Port/Picc Blood Culture - Preliminary Corynebacterium species 04/07/17 08:43 Nasopahrynx Gram Stain - Final 04/07/17 08:43 Nasopahrynx Nasopharyngeal Culture - Final Normal Respiratory Mayelin 04/03/17 11:30 Sputum, Suctioned Gram Stain - Final 04/03/17 11:30 Sputum, Suctioned Sputum Culture - Final Normal Respiratory Mayelin 04/03/17 10:38 Urine Legionella Urinary Antigen - Final 04/03/17 10:38 Urine Streptococcus pneumoniae Antigen (M - Final - Impressions Chest x-ray shows increased right upper lobe atelectasis. Stable bilateral lower lobe airspace disease Assessment and Plan (1) Community acquired pneumonia Current visit: No Status: Acute Assessment and Plan: Assessment CODE BLUE/bradycardia versus short lasting asystole on 04/06/2017-patient received chest compressions 3 -EKG and troponin post event were normal Elevated d-dimer 555 -Lovenox therapeutic dose initiated 04/06/2017. Acute hypoxic and hypercarbic respiratory failure-requiring mechanical ventilation, FiO2 100% for the first 6 or 7 days and currently he is down to 70 % FiO2. Intubated on 04/02/2017. Versed and fentanyl for sedation ARDS Community-acquired pneumonia-severe, requiring intubation. Levaquin initiated and Rocephin initiated 04/02/2017. Changed Rocephin 2 cefepime on 04/07. Sepsis secondary to pneumonia on admission Manifestations: Tachycardia, tachypnea, leukocytosis. Lactate normal on admission Blood culture one of 2 on 04/06/2027 positive for corynebacterium -discussed with Dr. Johnson. This is most likely contaminant. Anasarca-weight down almost 50 pounds since admission with diuresis Echocardiogram revealed normal EF, left ventricular hypertrophy, PA pressure 41 with mild pulmonary hypertension (echo 04/06/2017 unchanged on recheck)-BNP has been normal Morbid obesity-BMI 42.0 Diabetes Mellitus Type 2 - A1C 7.1 on admission (new diagnosis)-on Lantus, scheduled NovoLog and sliding scale insulin Possible COPD Probable obstructive sleep apnea Chronic back pain with high-dose ibuprofen and Tylenol use prior to admission Tinea corporis/ringworm? Tobacco dependence Hyperkalemia with potassium up to 5.5 of undetermined etiology. He has not receiving any potassium other than what was in his original tube feedings. He has been on IV Lasix.-Hyperkalemia improved with renal tube feeds. Aldosterone level was ordered and is still pending Possible sinusitis right nears with copious thick nasal secretions-specimen sent for Gram stain and culture with sensitivity Mild hypernatremia with sodium of 148 Plan Overall, the patient is improving. FiO2 is now down to 70%. The patient appears to be nearly euvolemic at this time. We'll continue Lasix. Weight is down approximately 22 kg over the past [address] Johnson recommends approximately 10 days of broad-spectrum antibiotics for his pneumonia. She recommended discontinuation of vancomycin today with corynebacterium found in one of 2 blood cultures on April 06 most likely being a contaminant. Currently at goal rate on tube feedings. He is on a renal formulation because of hyperkalemia. May need to increase free water further if sodium does not improving Continue Levaquin initiated 04/03/2017 and Rocephin initiated 04/02/2017. Rocephin discontinued on 04/06/2017 and cefepime started. Vancomycin started and discontinued on 04/09/2017 Continue Solu-Medrol and breathing treatments Add MiraLAX for constipation Continue Lovenox for DVT prophylaxis (gastric occult from NG drainage was negative) Greater than 45 minutes of critical care time spent seeing and evaluating the patient. - Physician Narrative Narrative: Date: 04/09/17 Time: 1937 Hospital Course Summary Disclaimer: The visit summary below is not to be considered part of the above Progress Note. Hospital Course: Assessment Respiratory insufficiency with hypoxia Sepsis secondary to pneumonia Manifestations: Tachycardia, tachypnea, leukocytosis Community-acquired pneumonia Anasarca Morbid obesity-BMI 42.0 Hyperglycemia-POA Tinea corporis Tobacco dependence 04/02/17 Hospital admission Admit to inpatient status under the care of the hospitalist service, Dr. Lewis attending. It is expected that his stay will exceed 2 overnights given his sepsis secondary to pneumonia and overall condition. SCDs and Lovenox for DVT prophylaxis Urinalysis for laboratory completeness. Repeat CBC and BMP in am to follow leukocytosis, renal function and electrolytes. Schedule echocardiogram to evaluate cardiac structure and function given his anasarca and dyspnea. Oxygen, DuoNeb treatments, Acapella, and guaifenesin for respiratory symptoms. Continue Rocephin and Zithromax initiated and the emergency room. Blood cultures were drawn prior to antibiotic initiation. RT consult tobacco cessation. Terbinafine topically for his tinea corporis Patient wishes to be a full code. Case discussed with Dr. Lewis. Case management will need to assist in finding patient a PCP. 04/04/17 12:03 Plan The patient continues to require mechanical ventilation and is on 100% FiO2 regarding his ARDS and pneumonia. Continue ventilator support - Dr. Pineda is following. His help is greatly appreciated. Continue Levaquin initiated 04/03/2017 and Rocephin initiated 04/02/2017 Continue Solu-Medrol Discussed with Dr. Pineda, will change Lovenox to prophylactic dose. Venous Doppler of the legs were negative for DVT. No signs of right heart strain on echocardiogram. Advance tube feedings Nutren luminary 1.5 to goal of 70 ML's per hour. Start free water 400 ML's every 8 hours. DC IV fluids Vishal blood pressure off of IV fluids. May need to initiate antihypertensive Start Lantus 10 units subcutaneous daily. Increase to medium dose sliding scale insulin. Continue Lasix 40 mg IV every 12. Patient is diuresing well. Check CBC and renal panel tomorrow. Chest x-ray tomorrow. Assess with Dr. Pineda, the patient's significant other, and the patient's nurse. 04/05/17 09:31 Plan The patient continues to require mechanical ventilation and is now on 95% FiO2 regarding his ARDS and pneumonia. Continue ventilator support per Dr. Pineda Continue Levaquin initiated 04/03/2017 and Rocephin initiated 04/02/2017. Continue Solu-Medrol Regarding hyperkalemia, will try to change to feeding to a renal tube feeds. Check ABG. (7.32/79/103 on 95% FiO2) Recheck basic metabolic profile later today. May need to increase fluids followed by diuresis for hyperkalemia Increase Lantus to 20 units subcutaneous daily for hyperglycemia. Increase sliding scale insulin to high dose Start Reglan and Dulcolax suppositories to stimulate GI tract. Decrease tube feed rate to 50 ML's for now. Greater than 40 minutes critical care time. 04/07/2017 Plan The patient continues to require mechanical ventilation and FiO2 100% regarding his ARDS and pneumonia. The patient has tolerated discontinuation of propofol and initiation of Versed. The patient is tolerating his tube feedings. Will advance as tolerated. Will increase free water to 200 ML's every 4 hours and decrease Lasix to 20 mg IV every 12 regarding his elated sodium. Continue to monitor blood pressure closely. Continue Levaquin initiated 04/03/2017 and Rocephin initiated 04/02/2017. Continue Solu-Medrol Regarding hyperkalemia-is resolved. Continue renal tube feeds Continue Reglan and Dulcolax suppositories to stimulate GI tract. Greater than 45 minutes of critical care time spent seeing and evaluating the patient. The patient's brother was updated. 04/08/17 09:49 Plan Overall, the patient is stable. He is diuresing well. Weight is down approximately 22 kg over the past 1 week. He has been on the ventilator for one week now. FiO2 turned down to 95% this morning. Consulted Dr. Johnson regarding positive blood culture and antibiotic recommendations The patient continues to require mechanical ventilation regarding his ARDS and pneumonia. FiO2 down to 95% this morning The patient is tolerating his tube feedings. Will advance as tolerated to goal. Will increase free water to 250 ML's every 4 hours. Continue Lasix 20 mg IV every 12. Continue to monitor blood pressure closely. Continue Levaquin initiated 04/03/2017 and Rocephin initiated 04/02/2017. Continue Solu-Medrol and breathing treatments Regarding hyperkalemia- Continue renal tube feeds Continue Reglan and Dulcolax suppositories to stimulate GI tract. Regarding possible mild upper GI bleed, will Gastric occult NG drainage. Hold Lovenox for now. Greater than 45 minutes of critical care time spent seeing and evaluating the patient. 04/09/17 19:52 Plan Overall, the patient is improving. FiO2 is now down to 70%. The patient appears to be nearly euvolemic at this time. We'll continue Lasix. Weight is down approximately 22 kg over the past [address] Johnson recommends approximately 10 days of broad-spectrum antibiotics for his pneumonia. She recommended discontinuation of vancomycin today with corynebacterium found in one of 2 blood cultures on April 06 most likely being a contaminant. Currently at goal rate on tube feedings. He is on a renal formulation because of hyperkalemia. May need to increase free water further if sodium does not improving Continue Levaquin initiated 04/03/2017 and Rocephin initiated 04/02/2017. Rocephin discontinued on 04/06/2017 and cefepime started. Vancomycin started and discontinued on 04/09/2017 Continue Solu-Medrol and breathing treatments Add MiraLAX for constipation Continue Lovenox for DVT prophylaxis (gastric occult from NG drainage was negative) Greater than 45 minutes of critical care time spent seeing and evaluating the patient.
[2017-04-09] MEDS: GUAIFENESIN 100 MG/5 ML PO SCH (21:21)
[2017-04-10] MEDS: INSULIN ASPART 100unit/ml INJECTION SQ SCH ×4 (00:37→17:53)
[2017-04-10] MEDS: INSULIN ASPART 100unit/ml INJECTION SQ PRN ×4 (00:38→17:53)
[2017-04-10] MEDS: METHYLPREDNISOLONE SOD SUCC 125mg/2ml INJECTION IVP SCH ×3 (00:41→17:45)
[2017-04-10] MEDS: FentaNYL 1,000 MCG in NS 80 ML IV PRN ×5 (01:44→23:32)
[2017-04-10] MEDS: CEFEPIME 2 GM in NS 100 ML IV SCH ×3 (03:23→20:50)
[2017-04-10] MEDS: GUAIFENESIN 100 MG/5 ML PO SCH ×2 (03:23→08:36)
[2017-04-10] MEDS: METOCLOPRAMIDE 10mg/2ml INJECTION IVP SCH ×4 (03:24→20:49)
[2017-04-10] MEDS: SODIUM CL 3% INHAL.SOLN 15ml NEB AEROSOL SCH ×4 (03:40→20:36)
[2017-04-10] MEDS: ALBUTEROL/IPRATROPIUM 2.5mg-0.5mg/3ml NEB AEROSOL SCH ×6 (03:40→22:53)
[2017-04-10] MEDS: RTU SALINE IV PRN ×2 (06:36→15:46)
[2017-04-10] MEDS: MIDAZOLAM IV PRN ×2 (06:36→15:46)
[2017-04-10] MEDS: BUDESONIDE INH.SOLN 0.5mg/2ml NEB AEROSOL SCH ×2 (07:45→18:36)
[2017-04-10] MEDS: PANTOPRAZOLE 40 MG INJECTION IVP SCH ×2 (08:36→20:49)
[2017-04-10] MEDS: BISACODYL 10 MG SUPPOSITORY RECTALLY SCH ×2 (08:38→20:50)
[2017-04-10] MEDS: ENOXAPARIN 40 MG/0.4 ML INJECTION SQ SCH (08:39)
[2017-04-10] MEDS: INSULIN GLARGINE 100unit/ml INJECTION SQ SCH ×2 (08:39→20:50)
[2017-04-10] MEDS: FUROSEMIDE 20 MG/2 ML INJECTION IVP SCH ×2 (08:39→20:49)
[2017-04-10] MEDS: TERFINAFINE 1% CREAM 12 G TUBE TOP SCH ×2 (08:40→20:52)
--- NOTE | 2017-04-10 09:30 | Pulmonology Progress Note ---
<Luisa Green - Last Filed: 04/10/17 09:21> Subjective Principal diagnosis: bradycardia Interval history: Pt currently on the vent sedated with fentanyl and versed, no distress noted at this time. Currently on vent settings AC/VC+, Vt 500, rate 22, Peep 12, FiO2 down to 75%. SPo2 94. No issues per staff. Exam Vital signs: Temperature 97.5 F 04/10/17 03:58 Pulse Rate 81 04/10/17 08:06 Respiratory Rate 22 04/10/17 08:06 Blood Pressure 126/72 04/10/17 07:00 Pulse Oximetry 95 04/10/17 08:06 - Constitutional no acute distress, morbidly obese Comments: sedated on vent - Routine HEENT Exam Head: Present: normocephalic, atraumatic Eye: Present: PERRL ENT: Present: mucous membranes moist - Routine Neck Exam Present: supple, full ROM - Routine Respiratory Exam Present: rhonchi Comments: rhonchi bases R>L otherwise clear - Routine Cardiovascular Exam Present: RRR, S1, S2, no murmur - Routine Abdominal Exam Present: soft, normoactive bowel sounds - Routine Extremities Exam Present: edema, non tender, full ROM Comments: full ROM passive while sedated - Routine Back/Spine/Pelvis Exam Back/Spine: Present: full ROM - Routine Skin Exam Present: intact, dry - Routine Neurological Exam Present: altered mental status sedated - Routine Psychiatric Exam Present: unable to assess - Urinary Catheter Management Urethral Cath placed during this visit: yes Insertion date: 04/02/17 Insertion time: 22:20 Assessment and Plan - Assessment and Plan Acute Hypoxic hypercapnic Respiratory Failure CAP Pneumonia Sepsis/ARDS Likely COPD Likely GLADYS - will need OP PSG Fluid overload Plan: Pt currently on the vent f22, Vt 500, peep 12, 75%, sats 94%. Once Fio2 to 60 could wean peep to 10, follow. Currently on fent/versed gtt and tolerating well , no issues noted. No new CXR will get in am, last CXR with improving RML infiltrate but with increase in RLL otherwise stable on L. Currently on a/a q4hr , pulmicort BID, solumedrol 40 q8, 3% q6, recent BC NTD, sputum cx with NF, still on cefepime and levaquin s/p vanco, WBC up improving 15.1>14, bands 14>3, BC + corynebacterium per ID likely contaminant, afebrile. Currently on TF per , and free water 250 q4, NA improving 148>146, K+ 5> 4.7 on renal TF, follow closely. On lasix 20mg BID, I/O -2.5L. Pt still critically ill and will follow closely. - Time Spent With Patient Total time spent is greater than 50% in coordination of care (as documented) at patient's floor/unit and/or counseling patient: 25 - 35 minutes <Artur Pineda - Last Filed: 04/10/17 15:09> Exam Vital signs: Temperature 100 F 04/10/17 11:30 Pulse Rate 62 04/10/17 14:15 Respiratory Rate 22 04/10/17 14:15 Blood Pressure 130/67 04/10/17 14:00 Pulse Oximetry 94 04/10/17 14:15 - Urinary Catheter Management Urethral Cath placed during this visit: no Assessment and Plan (1) Acute respiratory failure with hypoxia Status: Acute Assessment and plan: continues to improve On ACVC+ Vt 500 rate 22, peep 12, FiO2 70%. SpO2 94%. ABG shows PCO2 53, pH 7.43 Continue to wean Fio2. Once <60% we will wean PEEP and start to consider SBT Current Visit: Yes (2) ARDS (adult respiratory distress syndrome) Status: Acute Current Visit: Yes (3) Community acquired pneumonia Status: Acute Current Visit: No - Time Spent With Patient Total time spent is greater than 50% in coordination of care (as documented) at patient's floor/unit and/or counseling patient:
--- NOTE | 2017-04-10 10:42 | Progress Note ---
- Date 04/10/17 Subjective: F/U: Acute respiratory failure, ARDS, Pneumonia Pt sedated on ventilatory. Tolerating vent well. FIO2 weaned down to 75%. Will have spontaneous movements of ext with positional change. BP/HR stable. Good urine output. Small amounts of stool-no diarrhea. Objective Vital signs: Temperature 97.5 F 04/10/17 03:58 Pulse Rate 82 04/10/17 09:20 Respiratory Rate 23 04/10/17 10:00 Blood Pressure 126/72 04/10/17 07:00 Pulse Oximetry 90 04/10/17 10:00 Height/Weight/BMI: Height 1.8 m Weight 146.1 kg Body Mass Index 51.2 - Constitutional Present: well nourished, well developed, morbidly obese, other (Sedated ) - Routine HEENT Exam Head: Present: normocephalic, atraumatic ENT: Present: mucous membranes moist - Routine Respiratory Exam Present: patient mechanically ventilated, distant breath sounds. Absent: wheezes, crackles - Routine Cardiovascular Exam Present: RRR, no murmur - Routine Abdominal Exam Present: soft, non distended, non tender. Absent: normoactive bowel sounds ( Decreased ) - Routine Extremities Exam Present: edema (+2 BLE ), pulses intact (Strong DP pulses bilaterally ). Absent : cyanosis, clubbing Comments: SCD in place - Routine Musculoskeletal Exam Musculoskeletal: Present: no clubbing or cyanosis - Routine Skin Exam Present: dry, warm - Routine Neurological Exam Sedated on vent. - Routine Psychiatric Exam Comments: Sedated on vent Results - Labs CBC & Chem 7: 04/10/17 04:48 04/10/17 04:48 Microbiology Results: Microbiology 04/09/17 10:00 Port/Picc Blood Culture - Preliminary No Growth After 1 Day 04/09/17 09:24 Port/Picc Blood Culture - Preliminary No Growth After 1 Day 04/06/17 11:03 Port/Picc Blood Culture - Preliminary No Growth After 3 Days 04/06/17 10:37 Port/Picc Gram Stain - Final 04/06/17 10:37 Port/Picc Blood Culture - Preliminary Corynebacterium species 04/07/17 08:43 Nasopahrynx Gram Stain - Final 04/07/17 08:43 Nasopahrynx Nasopharyngeal Culture - Final Normal Respiratory [place] 04/03/17 11:30 Sputum, Suctioned Gram Stain - Final 04/03/17 11:30 Sputum, Suctioned Sputum Culture - Final Normal Respiratory [place] 04/03/17 10:38 Urine Legionella Urinary Antigen - Final 04/03/17 10:38 Urine Streptococcus pneumoniae Antigen (M - Final - ABG Interpretation ABG results: 04/10/17 07:30 ABG pH 7.430 ABG pCO2 54 H ABG pO2 97 ABG HCO3 36 H ABG Total CO2 37.5 H ABG O2 Saturation 98.0 ABG Base Excess 9.7 H Assessment and Plan (1) Community acquired pneumonia Current visit: No Status: Acute Assessment and Plan: Assessment Acute hypoxic and hypercarbic respiratory failure-requiring mechanical ventilation. Intubated on 04/02/2017. Versed and fentanyl for sedation ARDS Community-acquired pneumonia-severe, requiring intubation. Levaquin initiated and Rocephin initiated 04/02/2017. Changed Rocephin to cefepime on . Sepsis secondary to pneumonia on admission Manifestations: Tachycardia, tachypnea, leukocytosis. Lactate normal on admission CODE BLUE/bradycardia versus short lasting asystole on 04/06/2017-patient received chest compressions 3 -EKG and troponin post event were normal Elevated d-dimer 555 -Lovenox therapeutic dose initiated 04/06/2017. Blood culture one of 2 on 04/06/2027 positive for corynebacterium -discussed with Dr. Johnson. This is most likely contaminant. Anasarca-weight down almost 50 pounds since admission with diuresis. Echocardiogram revealed normal EF, left ventricular hypertrophy, PA pressure 41 with mild pulmonary hypertension (echo 04/06/2017 unchanged on recheck)-BNP has been normal. Diabetes Mellitus Type 2 - A1C 7.1 on admission (new diagnosis)-on Lantus, scheduled NovoLog and sliding scale insulin Possible COPD Probable obstructive sleep apnea Chronic back pain with high-dose ibuprofen and Tylenol use prior to admission Tinea corporis/ringworm? Tobacco dependence Hyperkalemia with potassium up to 5.5 of undetermined etiology (Not POA). Aldosterone level was ordered and is still pending Possible sinusitis right nears with copious thick nasal secretions-specimen sent for Gram stain and culture with sensitivity Mild hypernatremia with sodium of 148 (Not POA) Morbid obesity-BMI 42.0 Plan Continue with levofloxacin and cefepime for antimicrobial coverage - ID recommending an approximate 10 day course. Will continue with Solu-Medrol at 40mg IV q 8 hours -started on 03/26/17. Potentially could start to decrease. Continue neb treatments and pulmonary toilet. Nutritional support with DH tube feeding. Potassium normal. LFT with gradual increase-potential fatty liver secondary to continuous TF. Continue Lasix. Weight is down approximately 22 kg over the past 1 week. Renal status stable. Blood sugars showing persistent elevation in the low to mid 200's. Will increase Lantus to 34 units at night. Continue Lovenox and SCD for DVT prophylaxis (gastric occult from NG drainage was negative). Recheck BMP, Mg, and CBC in am secondary to pneumonia, respiratory failure, and medication use. Will recheck CXR in am due to intubation and pneumonia. Condition critical, but stable. Continued CCU care needed secondary to respiratory failure and mechanical ventilation. Case discussed with CCU nursing and family. Time spent with patient care 25 minutes. DVT Prophylaxis: SCD's, Lovenox Resuscitation Status: Full Code - Time spent with patient Time with patient PN: 25 minutes - Physician Narrative Physician: Wally Leiws MD Narrative: Date: 04/10/17 Time: 1039 Hospital Course Summary Disclaimer: The visit summary below is not to be considered part of the above Progress Note. Hospital Course: Assessment Respiratory insufficiency with hypoxia Sepsis secondary to pneumonia Manifestations: Tachycardia, tachypnea, leukocytosis Community-acquired pneumonia Anasarca Morbid obesity-BMI 42.0 Hyperglycemia-POA Tinea corporis Tobacco dependence 04/02/17 Hospital admission Admit to inpatient status under the care of the hospitalist service, Dr. Lewis attending. It is expected that his stay will exceed 2 overnights given his sepsis secondary to pneumonia and overall condition. SCDs and Lovenox for DVT prophylaxis Urinalysis for laboratory completeness. Repeat CBC and BMP in am to follow leukocytosis, renal function and electrolytes. Schedule echocardiogram to evaluate cardiac structure and function given his anasarca and dyspnea. Oxygen, DuoNeb treatments, Acapella, and guaifenesin for respiratory symptoms. Continue Rocephin and Zithromax initiated and the emergency room. Blood cultures were drawn prior to antibiotic initiation. RT consult tobacco cessation. Terbinafine topically for his tinea corporis Patient wishes to be a full code. Case discussed with Dr. Lewis. Case management will need to assist in finding patient a PCP. 04/04/17 12:03 Plan The patient continues to require mechanical ventilation and is on 100% FiO2 regarding his ARDS and pneumonia. Continue ventilator support - Dr. Pineda is following. His help is greatly appreciated. Continue Levaquin initiated 04/03/2017 and Rocephin initiated 04/02/2017 Continue Solu-Medrol Discussed with Dr. Pineda, will change Lovenox to prophylactic dose. Venous Doppler of the legs were negative for DVT. No signs of right heart strain on echocardiogram. Advance tube feedings Nutren luminary 1.5 to goal of 70 ML's per hour. Start free water 400 ML's every 8 hours. DC IV fluids Vishal blood pressure off of IV fluids. May need to initiate antihypertensive Start Lantus 10 units subcutaneous daily. Increase to medium dose sliding scale insulin. Continue Lasix 40 mg IV every 12. Patient is diuresing well. Check CBC and renal panel tomorrow. Chest x-ray tomorrow. Assess with Dr. Pineda, the patient's significant other, and the patient's nurse. 04/05/17 09:31 Plan The patient continues to require mechanical ventilation and is now on 95% FiO2 regarding his ARDS and pneumonia. Continue ventilator support per Dr. Pineda Continue Levaquin initiated 04/03/2017 and Rocephin initiated 04/02/2017. Continue Solu-Medrol Regarding hyperkalemia, will try to change to feeding to a renal tube feeds. Check ABG. (7.32/79/103 on 95% FiO2) Recheck basic metabolic profile later today. May need to increase fluids followed by diuresis for hyperkalemia Increase Lantus to 20 units subcutaneous daily for hyperglycemia. Increase sliding scale insulin to high dose Start Reglan and Dulcolax suppositories to stimulate GI tract. Decrease tube feed rate to 50 ML's for now. Greater than 40 minutes critical care time. 04/07/2017 Plan The patient continues to require mechanical ventilation and FiO2 100% regarding his ARDS and pneumonia. The patient has tolerated discontinuation of propofol and initiation of Versed. The patient is tolerating his tube feedings. Will advance as tolerated. Will increase free water to 200 ML's every 4 hours and decrease Lasix to 20 mg IV every 12 regarding his elated sodium. Continue to monitor blood pressure closely. Continue Levaquin initiated 04/03/2017 and Rocephin initiated 04/02/2017. Continue Solu-Medrol Regarding hyperkalemia-is resolved. Continue renal tube feeds Continue Reglan and Dulcolax suppositories to stimulate GI tract. Greater than 45 minutes of critical care time spent seeing and evaluating the patient. The patient's brother was updated. 04/08/17 09:49 Plan Overall, the patient is stable. He is diuresing well. Weight is down approximately 22 kg over the past 1 week. He has been on the ventilator for one week now. FiO2 turned down to 95% this morning. Consulted Dr. Johnson regarding positive blood culture and antibiotic recommendations The patient continues to require mechanical ventilation regarding his ARDS and pneumonia. FiO2 down to 95% this morning The patient is tolerating his tube feedings. Will advance as tolerated to goal. Will increase free water to 250 ML's every 4 hours. Continue Lasix 20 mg IV every 12. Continue to monitor blood pressure closely. Continue Levaquin initiated 04/03/2017 and Rocephin initiated 04/02/2017. Continue Solu-Medrol and breathing treatments Regarding hyperkalemia- Continue renal tube feeds Continue Reglan and Dulcolax suppositories to stimulate GI tract. Regarding possible mild upper GI bleed, will Gastric occult NG drainage. Hold Lovenox for now. Greater than 45 minutes of critical care time spent seeing and evaluating the patient. 04/09/17 19:52 Plan Overall, the patient is improving. FiO2 is now down to 70%. The patient appears to be nearly euvolemic at this time. We'll continue Lasix. Weight is down approximately 22 kg over the past [address] Johnson recommends approximately 10 days of broad-spectrum antibiotics for his pneumonia. She recommended discontinuation of vancomycin today with corynebacterium found in one of 2 blood cultures on April 06 most likely being a contaminant. Currently at goal rate on tube feedings. He is on a renal formulation because of hyperkalemia. May need to increase free water further if sodium does not improving Continue Levaquin initiated 04/03/2017 and Rocephin initiated 04/02/2017. Rocephin discontinued on 04/06/2017 and cefepime started. Vancomycin started and discontinued on 04/09/2017 Continue Solu-Medrol and breathing treatments Add MiraLAX for constipation Continue Lovenox for DVT prophylaxis (gastric occult from NG drainage was negative) Greater than 45 minutes of critical care time spent seeing and evaluating the patient. 04/10/17 Debbie Continue with levofloxacin and cefepime for antimicrobial coverage - ID recommending an approximate 10 day course. Will continue with Solu-Medrol at 40mg IV q 8 hours -started on 03/26/17. Potentially could start to decrease. Continue neb treatments and pulmonary toilet. Nutritional support with DH tube feeding. Potassium normal. LFT with gradual increase-potential fatty liver secondary to continuous TF. Continue Lasix. Weight is down approximately 22 kg over the past 1 week. Renal status stable. Blood sugars showing persistent elevation in the low to mid 200's. Will increase Lantus to 34 units at night. Continue Lovenox and SCD for DVT prophylaxis (gastric occult from NG drainage was negative).
[2017-04-10] MEDS: LEVOFLOXACIN PB 750 MG/150 ML BAG IV SCH (10:59)
--- NOTE | 2017-04-10 11:10 | Cardiology Progress Note ---
Subjective Principal diagnosis: bradycardia Interval history: Gianni is seen in follow up for bradycardia. He remains sedated on the ventilator. He appears euvolemic. Receiving TF per DH and free water.Good U/O. He remains in SR. VSS. Purposeful movements. Exam Vital signs: Temperature 97.5 F 04/10/17 03:58 Pulse Rate 82 04/10/17 09:20 Respiratory Rate 23 04/10/17 10:00 Blood Pressure 126/72 04/10/17 07:00 Pulse Oximetry 90 04/10/17 10:00 Narrative: Acetaminophen (Tylenol) 650 mg PO Q5H PRN PRN Reason: Discomfort Albuterol/Ipratropium (Duoneb) 3 ml AEROSOL Q2HR PRN Last Admin: 04/08/17 09:18 Dose: 3 ml Albuterol/Ipratropium (Duoneb) 3 ml AEROSOL Q4HR [facility] Last Admin: 04/10/17 07:45 Dose: 3 ml Artificial Tears (Refresh Classic) 1 drop EACH EYE PRN PRN Last Admin: 04/09/17 08:46 Dose: 1 drop Bisacodyl (Dulcolax) 10 mg RECTALLY DAILY PRN PRN Reason: Constipation Bisacodyl (Dulcolax) 10 mg RECTALLY Q12HR [facility] Last Admin: 04/10/17 08:38 Dose: 10 mg Budesonide (Pulmicort Inhalation) 0.5 mg AEROSOL RTBID [facility] Last Admin: 04/10/17 07:45 Dose: 0.5 mg Dextrose (D50%W) 20 ml IVP PRN PRN PRN Reason: Hypoglycemia Enoxaparin Sodium (Lovenox) 40 mg SQ DAILY [facility] Last Admin: 04/10/17 08:39 Dose: 40 mg Furosemide (Lasix) 20 mg IVP Q12HR [facility] Last Admin: 04/10/17 08:39 Dose: 20 mg Guaifenesin (Robitussin Liq) 400 mg PO Q6HR [facility] Fentanyl 1,000 mcg/ Sodium (Chloride) 100 mls @ 5 mls/hr IV .Q20H PRN; Protocol PRN Reason: Sedation Last Infusion: 04/10/17 09:00 Dose: 20 mls/hr Levofloxacin/Dextrose (Levaquin Premix) 750 mg in 150 mls @ 100 mls/hr IV Q24H [facility] Last Infusion: 04/09/17 11:40 Dose: Infused Midazolam HCl 100 mg/ Sodium (Chloride) 100 mls @ 0 mls/hr IV .Q0M PRN; Protocol; Per Protocol PRN Reason: VENT SEDATION Last Titration: 04/10/17 09:00 Dose: 12 mls/hr Cefepime HCl 2 gm/ Sodium (Chloride) 100 mls @ 200 mls/hr IV Q8H [facility] Last Infusion: 04/10/17 03:53 Dose: Infused Insulin Aspart (Novolog) 3 - 12 unit SQ SS PRN; Protocol PRN Reason: Hyperglycemia Last Admin: 04/10/17 06:11 Dose: 7 unit Insulin Aspart (Novolog) 8 unit SQ 0001,0600,1200,1800 [facility] Last Admin: 04/10/17 06:11 Dose: 8 unit Insulin Glargine (Lantus) 34 unit SQ HS [facility] Lorazepam (Ativan Inj) 2 mg IVP Q1H PRN PRN Reason: Anxiety/Restlessness Magnesium Hydroxide (Mom) 30 ml PO DAILY PRN PRN Reason: Constipation Menthol (Ricola Sf) 1 lozenge MM PRN PRN PRN Reason: Cough Methylprednisolone Sodium Succinate (Solu-Medrol) 40 mg IVP Q8HR [facility] Last Admin: 04/10/17 08:38 Dose: 40 mg Metoclopramide HCl (Reglan) 5 mg IVP Q6HR [facility] Last Admin: 04/10/17 08:37 Dose: 5 mg Pantoprazole Sodium (Protonix Iv) 40 mg IVP BID [facility] Last Admin: 04/10/17 08:36 Dose: 40 mg Sodium Chloride (Iv Flush) 10 - 80 ml IV PRN PRN PRN Reason: Flushing Last Admin: 04/09/17 17:31 Dose: 40 ml Sodium Chloride (Sodium Chloride 3% Inhal) 3 ml AEROSOL Q6HR [facility] Last Admin: 04/10/17 03:40 Dose: 3 ml Terbinafine HCl (Lamisil At) 1 applic TOP BID [facility] Last Admin: 04/10/17 08:40 Dose: 1 applic - Constitutional no acute distress, morbidly obese Comments: sedated and intubated. - Routine HEENT Exam ENT: Present: mucous membranes moist - Routine Neck Exam Absent: JVD - Routine Respiratory Exam Present: CTA bilaterally Comments: FIO2 at 75%. - Routine Cardiovascular Exam Present: RRR, no murmur - Routine Abdominal Exam Present: soft, normoactive bowel sounds - Routine Extremities Exam Present: edema (mild - improved), pulses intact, normal capillary refill - Routine Skin Exam Present: intact, dry - Routine Neurological Exam Present: moving all extremities sedated - Routine Psychiatric Exam Present: unable to assess - Urinary Catheter Management Urethral Cath placed during this visit: yes Insertion date: 04/02/17 Insertion time: 22:20 Results 04/10/17 04:48 04/10/17 04:48 Cardiac Enzymes 04/10/17 Range/Units 04:48 AST 65 H (17-59) U/L CBC 04/10/17 Range/Units 04:48 WBC 14.0 H (4.5-11.0) T/MM3 RBC 4.56 (4.50-5.90) M/MM3 Hgb 14.0 (13.5-17.5) GM/DL Hct 46.2 (41-53) % Plt Count 255 (130-400) T/MM3 Comprehensive Metabolic Panel 04/10/17 Range/Units 04:48 Sodium 146 H (134-144) MEQ/L Potassium 4.7 (3.6-5) MEQ/L Chloride 102 (98-107) MEQ/L Carbon Dioxide 34 H (22-30) MEQ/L BUN 42.0 H (9-20) MG/DL Creatinine 0.8 (0.8-1.5) MG/DL Glucose 268 H (75-110) MG/DL Calcium 9.3 (8.4-10.2) MG/DL AST 65 H (17-59) U/L ALT 154 H (21-72) U/L Alkaline Phosphatase 60 (38-126) U/L Total Protein 7.3 (6.3-8.2) G/DL Albumin 3.7 (3.5-5.0) G/DL Intake and Output 04/09/17 04/10/17 04/10/17 22:59 06:59 14:59 Intake Total 490.400 / 490.400 899.600 / 899.600 234.8 / 234.8 Output Total 2110 / 2110 1050 / 1050 1100 / 1100 Balance -1619.600 / -1619.600 -150.400 / -150.400 -865.2 / -865.2 Intake: IV 380.400 / 380.400 399.600 / 399.600 69.8 / 69.8 Cefepime 2 gm In Ns 100 ml @ 100 / 100 100 / 100 200 mls/hr IV Q8H [facility] Rx#: [id number] FentaNYL 1,000 mcg In Ns 80 ml 200.000 / 200.000 200.000 / 200.000 41 / 41 @ 5 mls/hr IV .Q20H PRN Rx#: [id number] Midazolam 100 mg In RTU-Saline 80.4 / 80.4 99.6 / 99.6 28.8 / 28.8 0 ml @ Per Protocol IV .Q0M PRN Rx#:[id number] Oral 500 / 500 Tube Feeding 110 / 110 165 / 165 Left Nare 110 / 110 165 / 165 Output: Urine Amount (Catheter) 2110 / 2110 1050 / 1050 1100 / 1100 Other: Urine Appearance Clear Clear Urine Color Yellow Yellow Urine Odor Normal Weight 322 lb 1.526 oz 322 lb 1.526 oz Patient Weight 04/11/17 06:59 Weight 322 lb 1.526 oz - Imaging and Cardiology Imaging & Cardiology Narrative: 04/06/2017 echo IMPRESSION 1. Normal LV systolic function with ejection fraction of about 65%. 2. Mild mitral regurgitation. 3. Mild tricuspid regurgitation with mild pulmonary hypertension with estimated pulmonary artery systolic pressure of 42. 4. Trace of pulmonary insufficiency. - EKG Interpretation EKG: sinus rhythm (04/06/2017 SR) Assessment and Plan - Assessment and Plan (1) Community acquired pneumonia Current visit: No Status: Acute (2) Acute respiratory failure with hypoxia Current visit: Yes Status: Acute (3) Bradycardia Current visit: Yes Status: Acute - Assessment and Plan 04/06/17 Possibly related to anesthesia Or vagal with positioning for chest x-ray - NSR now, EKG obtained is WNL - Echo reviewed remotely by . He reports: EF 65%, Mild TR, Mild MR, PAP 42, trace PI, essentially the same as on 04/03/17. - Obtain TSH with reflex T4. K+ 4.6, Mag 2.6 today - Continue to monitor cardiac telemetry 04/08/17 No further bradycardia or pauses seen on telemetry - Will continue to monitor telemetry 04/09/2017 Bradycardia: On 04/06/2017 he went bradycardic. Likely due to vagal response with repositioning. 04/06/2017 ECG: NSR. Echo: EF 65%, mild MR/TR, PAP 42 K+, Mag and TSH wnl. Tele: SR - no further bradycardia or pauses seen on telemetry. Respiratory failure/ARDS/pneumonia On vent - FIO2 80%, sedated on versed and fentanyl. Receiving Lasix 20mg IV BID per pulm for large U/O. 04/10/2017 Bradycardia - no further bradycardia or pauses Respiratory failure/ARDS/pneumonia - On vent 50%. Sedated on versed and fentanyl - receiving lasix 20mg IV BID per pulm. Fluid overload - EF 65%. mild PHTN, PAP 42. requiring vent support. - 04/09 I/O: 2391/4965 (-2573). Wt down 23 kg since admit. k+ and Cr wnl. 04/09 CXR: atelectasis and effusion. . - cont lasix per pulm. Thank you for allowing us to participate in the care of this patient, we will follow along with you. Hospital Course Summary Disclaimer: The visit summary below is not to be considered part of the above Progress Note. Hospital Course: Assessment Respiratory insufficiency with hypoxia Sepsis secondary to pneumonia Manifestations: Tachycardia, tachypnea, leukocytosis Community-acquired pneumonia Anasarca Morbid obesity-BMI 42.0 Hyperglycemia-POA Tinea corporis Tobacco dependence 04/02/17 Hospital admission Admit to inpatient status under the care of the hospitalist service, Dr. Lewis attending. It is expected that his stay will exceed 2 overnights given his sepsis secondary to pneumonia and overall condition. SCDs and Lovenox for DVT prophylaxis Urinalysis for laboratory completeness. Repeat CBC and BMP in am to follow leukocytosis, renal function and electrolytes. Schedule echocardiogram to evaluate cardiac structure and function given his anasarca and dyspnea. Oxygen, DuoNeb treatments, Acapella, and guaifenesin for respiratory symptoms. Continue Rocephin and Zithromax initiated and the emergency room. Blood cultures were drawn prior to antibiotic initiation. RT consult tobacco cessation. Terbinafine topically for his tinea corporis Patient wishes to be a full code. Case discussed with Dr. Lewis. Case management will need to assist in finding patient a PCP. 04/04/17 12:03 Plan The patient continues to require mechanical ventilation and is on 100% FiO2 regarding his ARDS and pneumonia. Continue ventilator support - Dr. Pineda is following. His help is greatly appreciated. Continue Levaquin initiated 04/03/2017 and Rocephin initiated 04/02/2017 Continue Solu-Medrol Discussed with Dr. Pineda, will change Lovenox to prophylactic dose. Venous Doppler of the legs were negative for DVT. No signs of right heart strain on echocardiogram. Advance tube feedings Nutren luminary 1.5 to goal of 70 ML's per hour. Start free water 400 ML's every 8 hours. DC IV fluids Vishal blood pressure off of IV fluids. May need to initiate antihypertensive Start Lantus 10 units subcutaneous daily. Increase to medium dose sliding scale insulin. Continue Lasix 40 mg IV every 12. Patient is diuresing well. Check CBC and renal panel tomorrow. Chest x-ray tomorrow. Assess with Dr. Pineda, the patient's significant other, and the patient's nurse. 04/05/17 09:31 Plan The patient continues to require mechanical ventilation and is now on 95% FiO2 regarding his ARDS and pneumonia. Continue ventilator support per Dr. Pineda Continue Levaquin initiated 04/03/2017 and Rocephin initiated 04/02/2017. Continue Solu-Medrol Regarding hyperkalemia, will try to change to feeding to a renal tube feeds. Check ABG. (7.32/79/103 on 95% FiO2) Recheck basic metabolic profile later today. May need to increase fluids followed by diuresis for hyperkalemia Increase Lantus to 20 units subcutaneous daily for hyperglycemia. Increase sliding scale insulin to high dose Start Reglan and Dulcolax suppositories to stimulate GI tract. Decrease tube feed rate to 50 ML's for now. Greater than 40 minutes critical care time. 04/07/2017 Plan The patient continues to require mechanical ventilation and FiO2 100% regarding his ARDS and pneumonia. The patient has tolerated discontinuation of propofol and initiation of Versed. The patient is tolerating his tube feedings. Will advance as tolerated. Will increase free water to 200 ML's every 4 hours and decrease Lasix to 20 mg IV every 12 regarding his elated sodium. Continue to monitor blood pressure closely. Continue Levaquin initiated 04/03/2017 and Rocephin initiated 04/02/2017. Continue Solu-Medrol Regarding hyperkalemia-is resolved. Continue renal tube feeds Continue Reglan and Dulcolax suppositories to stimulate GI tract. Greater than 45 minutes of critical care time spent seeing and evaluating the patient. The patient's brother was updated. 04/08/17 09:49 Plan Overall, the patient is stable. He is diuresing well. Weight is down approximately 22 kg over the past 1 week. He has been on the ventilator for one week now. FiO2 turned down to 95% this morning. Consulted Dr. Johnson regarding positive blood culture and antibiotic recommendations The patient continues to require mechanical ventilation regarding his ARDS and pneumonia. FiO2 down to 95% this morning The patient is tolerating his tube feedings. Will advance as tolerated to goal. Will increase free water to 250 ML's every 4 hours. Continue Lasix 20 mg IV every 12. Continue to monitor blood pressure closely. Continue Levaquin initiated 04/03/2017 and Rocephin initiated 04/02/2017. Continue Solu-Medrol and breathing treatments Regarding hyperkalemia- Continue renal tube feeds Continue Reglan and Dulcolax suppositories to stimulate GI tract. Regarding possible mild upper GI bleed, will Gastric occult NG drainage. Hold Lovenox for now. Greater than 45 minutes of critical care time spent seeing and evaluating the patient. 04/09/17 19:52 Plan Overall, the patient is improving. FiO2 is now down to 70%. The patient appears to be nearly euvolemic at this time. We'll continue Lasix. Weight is down approximately 22 kg over the past [address] Johnson recommends approximately 10 days of broad-spectrum antibiotics for his pneumonia. She recommended discontinuation of vancomycin today with corynebacterium found in one of 2 blood cultures on April 06 most likely being a contaminant. Currently at goal rate on tube feedings. He is on a renal formulation because of hyperkalemia. May need to increase free water further if sodium does not improving Continue Levaquin initiated 04/03/2017 and Rocephin initiated 04/02/2017. Rocephin discontinued on 04/06/2017 and cefepime started. Vancomycin started and discontinued on 04/09/2017 Continue Solu-Medrol and breathing treatments Add MiraLAX for constipation Continue Lovenox for DVT prophylaxis (gastric occult from NG drainage was negative) Greater than 45 minutes of critical care time spent seeing and evaluating the patient.
[2017-04-10] MEDS: GUAIFENESIN 200mg/10ml ORAL LIQUID PO SCH ×2 (15:37→20:52)
[2017-04-10] MEDS: NYSTATIN 500,000 units/5 ml ORAL LIQUID PO SCH ×2 (17:49→20:49)
[2017-04-10] MEDS: CHLORHEXIDINE 0.12% ORAL RINSE PO SCH (20:51)
[2017-04-11] MEDS: INSULIN ASPART 100unit/ml INJECTION SQ SCH ×5 (00:17→23:55)
[2017-04-11] MEDS: INSULIN ASPART 100unit/ml INJECTION SQ PRN ×5 (00:18→23:55)
[2017-04-11] MEDS: METHYLPREDNISOLONE SOD SUCC 125mg/2ml INJECTION IVP SCH ×2 (00:58→08:31)
[2017-04-11] MEDS: RTU SALINE IV PRN ×3 (01:37→20:32)
[2017-04-11] MEDS: MIDAZOLAM IV PRN ×3 (01:37→20:32)
[2017-04-11] MEDS: CEFEPIME 2 GM in NS 100 ML IV SCH ×3 (03:14→20:42)
[2017-04-11] MEDS: METOCLOPRAMIDE 10mg/2ml INJECTION IVP SCH ×4 (03:15→21:33)
[2017-04-11] MEDS: GUAIFENESIN 200mg/10ml ORAL LIQUID PO SCH ×4 (03:17→21:37)
[2017-04-11] MEDS: SODIUM CL 3% INHAL.SOLN 15ml NEB AEROSOL SCH ×4 (03:53→21:51)
[2017-04-11] MEDS: ALBUTEROL/IPRATROPIUM 2.5mg-0.5mg/3ml NEB AEROSOL SCH ×6 (03:53→23:55)
[2017-04-11] MEDS: FentaNYL 1,000 MCG in NS 80 ML IV PRN ×4 (04:38→21:57)
[2017-04-11] MEDS: SALINE FLUSH 10ml SYRINGE IV PRN ×2 (05:23→09:00)
[2017-04-11] MEDS ORDERED: ALTEPLASE (Cathflo*) 2mg INJECTION IV ONE (05:28)
[2017-04-11] MEDS: ALTEPLASE (Cathflo*) 2mg INJECTION IV ONE ×2 (05:39→06:58)
[2017-04-11] MEDS: BUDESONIDE INH.SOLN 0.5mg/2ml NEB AEROSOL SCH (07:38)
[2017-04-11] MEDS: PANTOPRAZOLE 40 MG INJECTION IVP SCH ×2 (08:29→21:33)
[2017-04-11] MEDS: FUROSEMIDE 20 MG/2 ML INJECTION IVP SCH ×2 (08:30→21:34)
--- NOTE | 2017-04-11 08:30 | XRay Report ---
Indication: f/u PROCEDURE: XR chest 1V: Encounter: Initial Comparison: April 09, 2017 Findings: Support devices are stable. Improving aeration of the right lung with decreasing consolidation in the mid lung. Mild residual opacity in the left lower lobe. No new or worsening airspace consolidation. Small left effusion. Heart size and mediastinal contours are stable. Pulmonary vascularity is unchanged. Impression: Improving aeration of the right lung. .
[2017-04-11] MEDS: REFRESH CLASSIC Eye Drops 0.4ml EACH EYE PRN (08:31)
[2017-04-11] MEDS: ENOXAPARIN 40 MG/0.4 ML INJECTION SQ SCH (08:32)
[2017-04-11] MEDS: NYSTATIN 500,000 units/5 ml ORAL LIQUID PO SCH ×4 (08:33→21:34)
[2017-04-11] MEDS: TERFINAFINE 1% CREAM 12 G TUBE TOP SCH ×2 (08:34→21:52)
[2017-04-11] MEDS: BISACODYL 10 MG SUPPOSITORY RECTALLY SCH (08:35)
[2017-04-11] MEDS: CHLORHEXIDINE 0.12% ORAL RINSE PO SCH ×2 (08:35→21:51)
[2017-04-11] MEDS ORDERED: acetaZOLAMIDE 250 MG TABLET DOB ONE (09:24)
--- NOTE | 2017-04-11 09:31 | Pulmonology Progress Note ---
Subjective Principal diagnosis: bradycardia Interval history: Pt currently on the vent sedated with fentanyl and versed, no distress noted at this time. Currently on vent settings AC/VC+, Vt 500, rate 18, Peep 12, FiO2 down to 65%. SPo2 93. No issues per staff. Exam Vital signs: Temperature 101 F H 04/11/17 07:31 Pulse Rate 81 04/11/17 08:00 Respiratory Rate 19 04/11/17 08:00 Blood Pressure 114/85 04/11/17 07:31 Pulse Oximetry 92 04/11/17 08:00 - Constitutional no acute distress, morbidly obese, other Comments: sedated on the vent - Routine HEENT Exam Head: Present: normocephalic, atraumatic Eye: Present: PERRL - Routine Neck Exam Present: supple, full ROM, trachea midline - Routine Respiratory Exam Present: patient mechanically ventilated, decreased breath sounds - Routine Cardiovascular Exam Present: RRR, S1, S2, no murmur - Routine Abdominal Exam Present: soft, normoactive bowel sounds - Routine Extremities Exam Present: edema, non tender, full ROM Comments: passive ROM sedated - Routine Back/Spine/Pelvis Exam Back/Spine: Present: full ROM - Routine Skin Exam Present: intact, dry - Routine Neurological Exam Present: altered mental status sedated - Routine Psychiatric Exam Present: unable to assess - Urinary Catheter Management Urethral Cath placed during this visit: yes Insertion date: 04/02/17 Insertion time: 22:20 Assessment and Plan - Assessment and Plan Acute Hypoxic hypercapnic Respiratory Failure CAP Pneumonia Sepsis/ARDS Likely COPD Likely GLADYS - will need OP PSG Elevated LFT's HyperKalemia Fluid overload Plan: Pt currently on the vent f18, Vt 500, peep 12, 65%, sats 93%, weaned peep to 10 , CXR improved R infiltrates, slightly noted. Still with congestion and cardiomegaly. Currently on fent/versed gtt and tolerating well, no issues noted. Currently on a/a q4hr, pulmicort BID, solumedrol 40 q8, wean to q 12, 3% q6, recent BC NTD, sputum cx with NF, still on cefepime and levaquin s/p vanco, WBC up improving 15.1>14> 14.9, febrile 101 this am check procal, BC + corynebacterium per ID likely contaminant. Currently on TF per , and free water 250 q4, NA improving 148>146> 144, K+ 5> 4.7>5.3, primary notified on renal TF, follow closely. On lasix 20mg BID, I/O -1.3L. Pt still critically ill and will follow closely, LFT's increasing slowly, per primary ? / TF . - Time Spent With Patient Total time spent is greater than 50% in coordination of care (as documented) at patient's floor/unit and/or counseling patient: less than 15 minutes
[2017-04-11] MEDS: ALBUTEROL/IPRATROPIUM 2.5mg-0.5mg/3ml NEB AEROSOL PRN (10:10)
[2017-04-11] MEDS: LEVOFLOXACIN PB 750 MG/150 ML BAG IV SCH (10:39)
[2017-04-11] MEDS: ACETAMINOPHEN 160mg/5ml ORAL LIQUID PO PRN ×2 (11:32→21:27)
--- NOTE | 2017-04-11 11:41 | Progress Note ---
- Date 04/11/17 Subjective: F/U: Acute respiratory failure, ARDS, Pneumonia Sedated on vent. FIO2 decreased to 65% overnight-did need to increase FIO2 after pulm decreased PEEP. Nursing reports patient will awaken for cares. Temp with elevation this am. Potassium 5.4. Weight trending down. Objective Vital signs: Temperature 103.3 F H 04/11/17 11:15 Pulse Rate 81 04/11/17 11:15 Respiratory Rate 19 04/11/17 11:15 Blood Pressure 120/68 04/11/17 11:00 Pulse Oximetry 91 04/11/17 11:15 Rhythm: Normal Sinus Rhythm Height/Weight/BMI: Height 1.8 m Weight 143.3 kg Body Mass Index 51.2 - Constitutional Present: well nourished, well developed, morbidly obese, other (Sedated ) - Routine HEENT Exam Head: Present: normocephalic, atraumatic ENT: Present: mucous membranes dry - Routine Respiratory Exam Present: patient mechanically ventilated, decreased breath sounds, distant breath sounds. Absent: wheezes, crackles - Routine Cardiovascular Exam Present: RRR, no murmur - Routine Abdominal Exam Present: soft, non distended, non tender. Absent: normoactive bowel sounds ( Decreased ) - Routine Extremities Exam Present: edema (+1 to 2 edema to upper/lower ext. ), pulses intact. Absent: cyanosis, clubbing - Routine Musculoskeletal Exam Musculoskeletal: Absent: no clubbing or cyanosis - Routine Skin Exam Present: warm. Absent: dry (Moist ) - Routine Neurological Exam Sedated - Routine Psychiatric Exam Comments: Sedated Results - Labs CBC & Chem 7: 04/11/17 05:01 04/11/17 05:01 Microbiology Results: Microbiology 04/06/17 11:03 Port/Picc Blood Culture - Final No Growth After 5 Days 04/09/17 10:00 Port/Picc Blood Culture - Preliminary No Growth After 2 Days 04/09/17 09:24 Port/Picc Blood Culture - Preliminary No Growth After 2 Days 04/06/17 10:37 Port/Picc Gram Stain - Final 04/06/17 10:37 Port/Picc Blood Culture - Preliminary Corynebacterium species 04/07/17 08:43 Nasopahrynx Gram Stain - Final 04/07/17 08:43 Nasopahrynx Nasopharyngeal Culture - Final Normal Respiratory [place] 04/03/17 11:30 Sputum, Suctioned Gram Stain - Final 04/03/17 11:30 Sputum, Suctioned Sputum Culture - Final Normal Respiratory [place] 04/03/17 10:38 Urine Legionella Urinary Antigen - Final 04/03/17 10:38 Urine Streptococcus pneumoniae Antigen (M - Final - ABG Interpretation ABG results: 04/10/17 07:30 ABG pH 7.430 ABG pCO2 54 H ABG pO2 97 ABG HCO3 36 H ABG Total CO2 37.5 H ABG O2 Saturation 98.0 ABG Base Excess 9.7 H Assessment and Plan (1) Community acquired pneumonia Current visit: No Status: Acute Assessment and Plan: Assessment Acute hypoxic and hypercarbic respiratory failure-requiring mechanical ventilation. Intubated on 04/02/2017. Versed and fentanyl for sedation ARDS Community - acquired pneumonia-severe, requiring intubation. Levaquin initiated 04/03/2017 and Rocephin initiated 04/02/2017. Changed Rocephin to cefepime on . Sepsis secondary to pneumonia on admission Manifestations: Tachycardia, tachypnea, leukocytosis. Lactate normal on admission CODE BLUE/bradycardia versus short lasting asystole on 04/06/2017-patient received chest compressions 3 -EKG and troponin post event were normal Elevated d-dimer 555 - Lovenox therapeutic dose initiated 04/06/2017. Blood culture one of 2 on 04/06/2027 positive for corynebacterium -discussed with Dr. Johnson. This is most likely contaminant. Anasarca - weight down 59 pounds since admission with diuresis. Echocardiogram revealed normal EF, left ventricular hypertrophy, PA pressure 41 with mild pulmonary hypertension (echo 04/06/2017 unchanged on recheck)-BNP has been normal. Diabetes Mellitus Type 2 - A1C 7.1 on admission (new diagnosis)-on Lantus, scheduled NovoLog and sliding scale insulin Possible COPD Probable obstructive sleep apnea Chronic back pain with high-dose ibuprofen and Tylenol use prior to admission Tinea corporis/ringworm? Tobacco dependence Hyperkalemia with potassium up to 5.5 of undetermined etiology (Not POA). Aldosterone level was ordered and is still pending Possible sinusitis right nears with copious thick nasal secretions-specimen sent for Gram stain and culture with sensitivity Mild hypernatremia with sodium of 148 (Not POA) Morbid obesity-BMI 42.0 Plan Continue with levofloxacin and cefepime for antimicrobial coverage - ID recommending an approximate 10 day course. With increased temp, persistent leukocytosis, steroid and antibiotic use will start Diflucan 200mg IV daily. Continue mechanical ventilation for respiratory support. Pulm decreased Solu-Medrol to 40mg IV q 12 hours. Continue neb treatments and pulmonary toilet. Slowly able to wean down FIO2. Nutritional support with DH tube feeding. Continue Lasix 20 mg IV BID. Creatinine and BP stable. Potassium with increase to 5.4 this am. Blood sugars still with elevations - will continue current regimen, watching for decrease with decreased Solu-Medrol. Recheck BMP, Mg, and CBC in am secondary to pneumonia, respiratory failure, and medication use. Condition critical, but stable. Continued CCU care needed secondary to respiratory failure and mechanical ventilation. Case discussed with CCU nursing, pulmonology, and family. Time spent with patient care 25 minutes. DVT Prophylaxis: SCD's, Lovenox Resuscitation Status: Full Code - Time spent with patient Time with patient PN: 25 minutes - Physician Narrative Physician: Wally Lewis MD Narrative: Date: 04/11/17 Time: 1138 Hospital Course Summary Disclaimer: The visit summary below is not to be considered part of the above Progress Note. Hospital Course: Assessment Respiratory insufficiency with hypoxia Sepsis secondary to pneumonia Manifestations: Tachycardia, tachypnea, leukocytosis Community-acquired pneumonia Anasarca Morbid obesity-BMI 42.0 Hyperglycemia-POA Tinea corporis Tobacco dependence 04/02/17 Hospital admission Admit to inpatient status under the care of the hospitalist service, Dr. Lewis attending. It is expected that his stay will exceed 2 overnights given his sepsis secondary to pneumonia and overall condition. SCDs and Lovenox for DVT prophylaxis Urinalysis for laboratory completeness. Repeat CBC and BMP in am to follow leukocytosis, renal function and electrolytes. Schedule echocardiogram to evaluate cardiac structure and function given his anasarca and dyspnea. Oxygen, DuoNeb treatments, Acapella, and guaifenesin for respiratory symptoms. Continue Rocephin and Zithromax initiated and the emergency room. Blood cultures were drawn prior to antibiotic initiation. RT consult tobacco cessation. Terbinafine topically for his tinea corporis Patient wishes to be a full code. Case discussed with Dr. Lewis. Case management will need to assist in finding patient a PCP. 04/04/17 12:03 Plan The patient continues to require mechanical ventilation and is on 100% FiO2 regarding his ARDS and pneumonia. Continue ventilator support - Dr. Pineda is following. His help is greatly appreciated. Continue Levaquin initiated 04/03/2017 and Rocephin initiated 04/02/2017 Continue Solu-Medrol Discussed with Dr. Pineda, will change Lovenox to prophylactic dose. Venous Doppler of the legs were negative for DVT. No signs of right heart strain on echocardiogram. Advance tube feedings Nutren luminary 1.5 to goal of 70 ML's per hour. Start free water 400 ML's every 8 hours. DC IV fluids Vishal blood pressure off of IV fluids. May need to initiate antihypertensive Start Lantus 10 units subcutaneous daily. Increase to medium dose sliding scale insulin. Continue Lasix 40 mg IV every 12. Patient is diuresing well. Check CBC and renal panel tomorrow. Chest x-ray tomorrow. Assess with Dr. Pineda, the patient's significant other, and the patient's nurse. 04/05/17 09:31 Plan The patient continues to require mechanical ventilation and is now on 95% FiO2 regarding his ARDS and pneumonia. Continue ventilator support per Dr. Pineda Continue Levaquin initiated 04/03/2017 and Rocephin initiated 04/02/2017. Continue Solu-Medrol Regarding hyperkalemia, will try to change to feeding to a renal tube feeds. Check ABG. (7.32/79/103 on 95% FiO2) Recheck basic metabolic profile later today. May need to increase fluids followed by diuresis for hyperkalemia Increase Lantus to 20 units subcutaneous daily for hyperglycemia. Increase sliding scale insulin to high dose Start Reglan and Dulcolax suppositories to stimulate GI tract. Decrease tube feed rate to 50 ML's for now. Greater than 40 minutes critical care time. 04/07/2017 Plan The patient continues to require mechanical ventilation and FiO2 100% regarding his ARDS and pneumonia. The patient has tolerated discontinuation of propofol and initiation of Versed. The patient is tolerating his tube feedings. Will advance as tolerated. Will increase free water to 200 ML's every 4 hours and decrease Lasix to 20 mg IV every 12 regarding his elated sodium. Continue to monitor blood pressure closely. Continue Levaquin initiated 04/03/2017 and Rocephin initiated 04/02/2017. Continue Solu-Medrol Regarding hyperkalemia-is resolved. Continue renal tube feeds Continue Reglan and Dulcolax suppositories to stimulate GI tract. Greater than 45 minutes of critical care time spent seeing and evaluating the patient. The patient's brother was updated. 04/08/17 09:49 Plan Overall, the patient is stable. He is diuresing well. Weight is down approximately 22 kg over the past 1 week. He has been on the ventilator for one week now. FiO2 turned down to 95% this morning. Consulted Dr. Johnson regarding positive blood culture and antibiotic recommendations The patient continues to require mechanical ventilation regarding his ARDS and pneumonia. FiO2 down to 95% this morning The patient is tolerating his tube feedings. Will advance as tolerated to goal. Will increase free water to 250 ML's every 4 hours. Continue Lasix 20 mg IV every 12. Continue to monitor blood pressure closely. Continue Levaquin initiated 04/03/2017 and Rocephin initiated 04/02/2017. Continue Solu-Medrol and breathing treatments Regarding hyperkalemia- Continue renal tube feeds Continue Reglan and Dulcolax suppositories to stimulate GI tract. Regarding possible mild upper GI bleed, will Gastric occult NG drainage. Hold Lovenox for now. Greater than 45 minutes of critical care time spent seeing and evaluating the patient. 04/09/17 19:52 Plan Overall, the patient is improving. FiO2 is now down to 70%. The patient appears to be nearly euvolemic at this time. We'll continue Lasix. Weight is down approximately 22 kg over the past [address] Johnson recommends approximately 10 days of broad-spectrum antibiotics for his pneumonia. She recommended discontinuation of vancomycin today with corynebacterium found in one of 2 blood cultures on April 06 most likely being a contaminant. Currently at goal rate on tube feedings. He is on a renal formulation because of hyperkalemia. May need to increase free water further if sodium does not improving Continue Levaquin initiated 04/03/2017 and Rocephin initiated 04/02/2017. Rocephin discontinued on 04/06/2017 and cefepime started. Vancomycin started and discontinued on 04/09/2017 Continue Solu-Medrol and breathing treatments Add MiraLAX for constipation Continue Lovenox for DVT prophylaxis (gastric occult from NG drainage was negative) Greater than 45 minutes of critical care time spent seeing and evaluating the patient. 04/10/17 Debbie Continue with levofloxacin and cefepime for antimicrobial coverage - ID recommending an approximate 10 day course. Will continue with Solu-Medrol at 40mg IV q 8 hours -started on 03/26/17. Potentially could start to decrease. Continue neb treatments and pulmonary toilet. Nutritional support with DH tube feeding. Potassium normal. LFT with gradual increase-potential fatty liver secondary to continuous TF. Continue Lasix. Weight is down approximately 22 kg over the past 1 week. Renal status stable. Blood sugars showing persistent elevation in the low to mid 200's. Will increase Lantus to 34 units at night. 04/11/17 Continue with levofloxacin and cefepime for antimicrobial coverage - ID recommending an approximate 10 day course. With increased temp, persistent leukocytosis, steroid and antibiotic use will start Diflucan 200mg IV daily. Continue mechanical ventilation for respiratory support. Pulm decreased Solu-Medrol to 40mg IV q 12 hours. Continue neb treatments and pulmonary toilet. Slowly able to wean down FIO2. Nutritional support with DH tube feeding. Continue Lasix 20 mg IV BID. Creatinine and BP stable. Potassium with increase to 5.4 this am. Blood sugars still with elevations - will continue current regimen, watching for decrease with decreased Solu-Medrol. Condition critical, but stable. Continued CCU care needed secondary to respiratory failure and mechanical ventilation.
[2017-04-11] MEDS: FLUCONAZOLE PB 200 MG/100 ML BAG IV SCH (12:47)
[2017-04-11] MEDS: METHYLPREDNISOLONE SOD SUCC 40mg/ml INJECTION IVP SCH (21:32)
[2017-04-11] MEDS: INSULIN GLARGINE 100unit/ml INJECTION SQ SCH (21:33)
[2017-04-12] MEDS: BUDESONIDE INH.SOLN 0.5mg/2ml NEB AEROSOL SCH ×3 (02:15→18:47)
[2017-04-12] MEDS: GUAIFENESIN 200mg/10ml ORAL LIQUID PO SCH ×4 (02:28→20:36)
[2017-04-12] MEDS: METOCLOPRAMIDE 10mg/2ml INJECTION IVP SCH ×4 (02:28→20:31)
[2017-04-12] MEDS: ACETAMINOPHEN 160mg/5ml ORAL LIQUID PO PRN ×2 (02:28→16:51)
[2017-04-12] MEDS: CEFEPIME 2 GM in NS 100 ML IV SCH ×3 (03:24→19:10)
[2017-04-12] MEDS: FentaNYL 1,000 MCG in NS 80 ML IV PRN ×4 (03:27→19:18)
[2017-04-12] MEDS: ALBUTEROL/IPRATROPIUM 2.5mg-0.5mg/3ml NEB AEROSOL SCH ×5 (04:16→18:47)
[2017-04-12] MEDS: SODIUM CL 3% INHAL.SOLN 15ml NEB AEROSOL SCH ×3 (04:16→20:06)
[2017-04-12] MEDS: RTU SALINE IV PRN ×3 (05:48→20:53)
[2017-04-12] MEDS: MIDAZOLAM IV PRN ×3 (05:48→20:53)
[2017-04-12] MEDS: INSULIN ASPART 100unit/ml INJECTION SQ SCH ×3 (06:03→19:15)
[2017-04-12] MEDS: INSULIN ASPART 100unit/ml INJECTION SQ PRN ×3 (06:03→19:14)
[2017-04-12] MEDS: BISACODYL 10 MG SUPPOSITORY RECTALLY SCH ×2 (08:45)
[2017-04-12] MEDS: CHLORHEXIDINE 0.12% ORAL RINSE PO SCH ×2 (08:46→20:35)
[2017-04-12] MEDS: ENOXAPARIN 40 MG/0.4 ML INJECTION SQ SCH (08:46)
[2017-04-12] MEDS: FUROSEMIDE 20 MG/2 ML INJECTION IVP SCH (08:46)
[2017-04-12] MEDS: PANTOPRAZOLE 40 MG INJECTION IVP SCH ×2 (08:47→20:32)
[2017-04-12] MEDS: TERFINAFINE 1% CREAM 12 G TUBE TOP SCH ×2 (08:48→20:37)
[2017-04-12] MEDS: METHYLPREDNISOLONE SOD SUCC 40mg/ml INJECTION IVP SCH ×2 (08:48→20:32)
[2017-04-12] MEDS: NYSTATIN 500,000 units/5 ml ORAL LIQUID PO SCH ×4 (08:48→20:36)
--- NOTE | 2017-04-12 09:38 | Pulmonology Progress Note ---
Subjective Principal diagnosis: bradycardia Interval history: Now on FiO2 100%, Peep 14. CXR shows increased right basilar opacity WBC's 11.5 K Temp 100.1 Nursing and RT not reporting increase in ETT secretions. Still tolerating TF's Sedated on fentanyl and versed Exam Vital signs: Temperature 100.1 F 04/12/17 08:00 Pulse Rate 76 04/12/17 08:15 Respiratory Rate 18 04/12/17 08:15 Blood Pressure 120/69 04/12/17 08:00 Pulse Oximetry 95 04/12/17 08:15 - Constitutional no acute distress Comments: obese, on mech vent - Routine HEENT Exam Head: Present: normocephalic Eye: Absent: conjunctival icterus - Routine Neck Exam Present: supple - Routine Respiratory Exam Present: patient mechanically ventilated, prolonged expiratory phase, rhonchi. Absent: accessory muscle use - Routine Cardiovascular Exam Present: RRR - Routine Abdominal Exam Present: soft, distended - Urinary Catheter Management Urethral Cath placed during this visit: yes Insertion date: 04/02/17 Insertion time: 22:20 Assessment and Plan (1) Acute respiratory failure with hypoxia Status: Acute Assessment and plan: Now on increased FiO2/Peep. The only change I see is increased RLL opacity and fever. Remains on cefepime and levaquin on lovenox for DVT prophylaxis. Recommend repeat cultures of sputum in case we are dealing with VAP (though this is not clear). Continue mechanical ventilation. Current Visit: Yes (2) ARDS (adult respiratory distress syndrome) Status: Acute Current Visit: Yes (3) Community acquired pneumonia Status: Acute Current Visit: No - Assessment and Plan Acute Hypoxic hypercapnic Respiratory Failure CAP Pneumonia Sepsis/ARDS Likely COPD Likely GLADYS - will need OP PSG Elevated LFT's HyperKalemia Fluid overload - Time Spent With Patient Total time spent is greater than 50% in coordination of care (as documented) at patient's floor/unit and/or counseling patient: 25 - 35 minutes
[2017-04-12] MEDS: LEVOFLOXACIN PB 750 MG/150 ML BAG IV SCH (11:52)
[2017-04-12] MEDS: FLUCONAZOLE PB 200 MG/100 ML BAG IV SCH (13:43)
--- NOTE | 2017-04-12 14:03 | Progress Note ---
- Date 04/12/17 Subjective: F/U: Acute respiratory failure, ARDS, Pneumonia Sedated on vent this afternoon. O2 sats decreased. RT suctioned out thick mucous. Urine output stable. No stool today. BP stable. WBC with slight decrease -steroids decreased yesterday. Objective Vital signs: Temperature 100.3 F 04/12/17 12:00 Pulse Rate 80 04/12/17 12:00 Respiratory Rate 18 04/12/17 12:00 Blood Pressure 129/67 04/12/17 12:00 Pulse Oximetry 90 04/12/17 12:00 Rhythm: Normal Sinus Rhythm Height/Weight/BMI: Height 1.8 m Weight 144.2 kg Body Mass Index 51.2 - Constitutional Present: well nourished, well developed, morbidly obese, other (Sedated ) - Routine HEENT Exam Head: Present: normocephalic, atraumatic - Routine Respiratory Exam Present: decreased breath sounds. Absent: respiratory distress, wheezes, crackles - Routine Cardiovascular Exam Present: RRR, no murmur - Routine Abdominal Exam Present: soft, non distended, non tender. Absent: normoactive bowel sounds - Routine Extremities Exam Present: edema (Trace pedal edema ), pulses intact. Absent: cyanosis, clubbing - Routine Musculoskeletal Exam Musculoskeletal: Absent: no clubbing or cyanosis - Routine Skin Exam Present: dry, warm - Routine Neurological Exam Sedated on vent - Routine Psychiatric Exam Comments: Sedated on vent Results - Labs CBC & Chem 7: 04/12/17 04:39 04/12/17 04:39 Microbiology Results: Microbiology 04/09/17 10:00 Port/Picc Blood Culture - Preliminary No Growth After 3 Days 04/09/17 09:24 Port/Picc Blood Culture - Preliminary No Growth After 3 Days 04/06/17 10:37 Port/Picc Gram Stain - Final 04/06/17 10:37 Port/Picc Blood Culture - Final Corynebacterium species 04/06/17 11:03 Port/Picc Blood Culture - Final No Growth After 5 Days 04/07/17 08:43 Nasopahrynx Gram Stain - Final 04/07/17 08:43 Nasopahrynx Nasopharyngeal Culture - Final Normal Respiratory [place] 04/03/17 11:30 Sputum, Suctioned Gram Stain - Final 04/03/17 11:30 Sputum, Suctioned Sputum Culture - Final Normal Respiratory [place] 04/03/17 10:38 Urine Legionella Urinary Antigen - Final 04/03/17 10:38 Urine Streptococcus pneumoniae Antigen (M - Final - ABG Interpretation ABG results: 04/12/17 04:39 ABG pH 7.340 L ABG pCO2 66 H* ABG pO2 112 H ABG HCO3 36 H ABG Total CO2 37.6 H ABG O2 Saturation 98.0 ABG Base Excess 7.7 H Assessment and Plan (1) Community acquired pneumonia Current visit: No Status: Acute Assessment and Plan: Assessment Acute hypoxic and hypercarbic respiratory failure-requiring mechanical ventilation. Intubated on 04/02/2017. Versed and fentanyl for sedation ARDS Community - acquired pneumonia-severe, requiring intubation. Levaquin initiated 04/03/2017 and Rocephin initiated 04/02/2017. Changed Rocephin to cefepime on . Sepsis secondary to pneumonia on admission Manifestations: Tachycardia, tachypnea, leukocytosis. Lactate normal on admission CODE BLUE/bradycardia versus short lasting asystole on 04/06/2017-patient received chest compressions 3 -EKG and troponin post event were normal Elevated d-dimer 555 - Lovenox therapeutic dose initiated 04/06/2017. Blood culture one of 2 on 04/06/2027 positive for corynebacterium -discussed with Dr. Johnson. This is most likely contaminant. Anasarca - improving; significant decrease of fluid since admit Echocardiogram revealed normal EF, left ventricular hypertrophy, PA pressure 41 with mild pulmonary hypertension (echo 04/06/2017 unchanged on recheck)-BNP has been normal. Diabetes Mellitus Type 2 - A1C 7.1 on admission (new diagnosis)-on Lantus, scheduled NovoLog and sliding scale insulin Possible COPD Probable obstructive sleep apnea Chronic back pain with high-dose ibuprofen and Tylenol use prior to admission Tinea corporis/ringworm? Tobacco dependence Hyperkalemia with potassium up to 5.5 of undetermined etiology (Not POA). Possible sinusitis right nears with copious thick nasal secretions-specimen sent for Gram stain and culture with sensitivity Mild hypernatremia (Not POA) Morbid obesity-BMI 42.0 Plan Continue with levofloxacin and cefepime for antimicrobial coverage - ID recommending an approximate 10 day course. Diflucan 200mg IV daily started 04/11/17. Continue mechanical ventilation for respiratory support. Solu-Medrol at 40mg IV q 12 hours. Continue neb treatments and pulmonary toilet. O2 needs increased today - likely mucous plugging. Nutritional support with DH tube feeding. Creatinine with increase to 1.1. Edema much improved. Will decrease Lasix to 20mg daily to minimize overdiuresis. Blood sugars still with elevations - Increase Lantus to 38 units at HS. Recheck CMP, CBC, and CXR in am secondary to pneumonia, respiratory failure, and medication use. Condition critical, but stable. Continued CCU care needed secondary to respiratory failure and mechanical ventilation. Case discussed with CCU nursing, pulmonology, and family. Time spent with patient care 25 minutes. DVT Prophylaxis: SCD's, Lovenox Resuscitation Status: Full Code - Time spent with patient Time with patient PN: 25 minutes - Physician Narrative Physician: Wally Lewis MD Narrative: Date: 04/12/17 Time: 1359 Hospital Course Summary Disclaimer: The visit summary below is not to be considered part of the above Progress Note. Hospital Course: Assessment Respiratory insufficiency with hypoxia Sepsis secondary to pneumonia Manifestations: Tachycardia, tachypnea, leukocytosis Community-acquired pneumonia Anasarca Morbid obesity-BMI 42.0 Hyperglycemia-POA Tinea corporis Tobacco dependence 04/02/17 Hospital admission Admit to inpatient status under the care of the hospitalist service, Dr. Lewis attending. It is expected that his stay will exceed 2 overnights given his sepsis secondary to pneumonia and overall condition. SCDs and Lovenox for DVT prophylaxis Urinalysis for laboratory completeness. Repeat CBC and BMP in am to follow leukocytosis, renal function and electrolytes. Schedule echocardiogram to evaluate cardiac structure and function given his anasarca and dyspnea. Oxygen, DuoNeb treatments, Acapella, and guaifenesin for respiratory symptoms. Continue Rocephin and Zithromax initiated and the emergency room. Blood cultures were drawn prior to antibiotic initiation. RT consult tobacco cessation. Terbinafine topically for his tinea corporis Patient wishes to be a full code. Case discussed with Dr. Lewis. Case management will need to assist in finding patient a PCP. 04/04/17 12:03 Plan The patient continues to require mechanical ventilation and is on 100% FiO2 regarding his ARDS and pneumonia. Continue ventilator support - Dr. Pineda is following. His help is greatly appreciated. Continue Levaquin initiated 04/03/2017 and Rocephin initiated 04/02/2017 Continue Solu-Medrol Discussed with Dr. Pineda, will change Lovenox to prophylactic dose. Venous Doppler of the legs were negative for DVT. No signs of right heart strain on echocardiogram. Advance tube feedings Nutren luminary 1.5 to goal of 70 ML's per hour. Start free water 400 ML's every 8 hours. DC IV fluids Vishal blood pressure off of IV fluids. May need to initiate antihypertensive Start Lantus 10 units subcutaneous daily. Increase to medium dose sliding scale insulin. Continue Lasix 40 mg IV every 12. Patient is diuresing well. Check CBC and renal panel tomorrow. Chest x-ray tomorrow. Assess with Dr. Pineda, the patient's significant other, and the patient's nurse. 04/05/17 09:31 Plan The patient continues to require mechanical ventilation and is now on 95% FiO2 regarding his ARDS and pneumonia. Continue ventilator support per Dr. Pineda Continue Levaquin initiated 04/03/2017 and Rocephin initiated 04/02/2017. Continue Solu-Medrol Regarding hyperkalemia, will try to change to feeding to a renal tube feeds. Check ABG. (7.32/79/103 on 95% FiO2) Recheck basic metabolic profile later today. May need to increase fluids followed by diuresis for hyperkalemia Increase Lantus to 20 units subcutaneous daily for hyperglycemia. Increase sliding scale insulin to high dose Start Reglan and Dulcolax suppositories to stimulate GI tract. Decrease tube feed rate to 50 ML's for now. Greater than 40 minutes critical care time. 04/07/2017 Plan The patient continues to require mechanical ventilation and FiO2 100% regarding his ARDS and pneumonia. The patient has tolerated discontinuation of propofol and initiation of Versed. The patient is tolerating his tube feedings. Will advance as tolerated. Will increase free water to 200 ML's every 4 hours and decrease Lasix to 20 mg IV every 12 regarding his elated sodium. Continue to monitor blood pressure closely. Continue Levaquin initiated 04/03/2017 and Rocephin initiated 04/02/2017. Continue Solu-Medrol Regarding hyperkalemia-is resolved. Continue renal tube feeds Continue Reglan and Dulcolax suppositories to stimulate GI tract. Greater than 45 minutes of critical care time spent seeing and evaluating the patient. The patient's brother was updated. 04/08/17 09:49 Plan Overall, the patient is stable. He is diuresing well. Weight is down approximately 22 kg over the past 1 week. He has been on the ventilator for one week now. FiO2 turned down to 95% this morning. Consulted Dr. Johnson regarding positive blood culture and antibiotic recommendations The patient continues to require mechanical ventilation regarding his ARDS and pneumonia. FiO2 down to 95% this morning The patient is tolerating his tube feedings. Will advance as tolerated to goal. Will increase free water to 250 ML's every 4 hours. Continue Lasix 20 mg IV every 12. Continue to monitor blood pressure closely. Continue Levaquin initiated 04/03/2017 and Rocephin initiated 04/02/2017. Continue Solu-Medrol and breathing treatments Regarding hyperkalemia- Continue renal tube feeds Continue Reglan and Dulcolax suppositories to stimulate GI tract. Regarding possible mild upper GI bleed, will Gastric occult NG drainage. Hold Lovenox for now. Greater than 45 minutes of critical care time spent seeing and evaluating the patient. 04/09/17 19:52 Plan Overall, the patient is improving. FiO2 is now down to 70%. The patient appears to be nearly euvolemic at this time. We'll continue Lasix. Weight is down approximately 22 kg over the past [address] Johnson recommends approximately 10 days of broad-spectrum antibiotics for his pneumonia. She recommended discontinuation of vancomycin today with corynebacterium found in one of 2 blood cultures on April 06 most likely being a contaminant. Currently at goal rate on tube feedings. He is on a renal formulation because of hyperkalemia. May need to increase free water further if sodium does not improving Continue Levaquin initiated 04/03/2017 and Rocephin initiated 04/02/2017. Rocephin discontinued on 04/06/2017 and cefepime started. Vancomycin started and discontinued on 04/09/2017 Continue Solu-Medrol and breathing treatments Add MiraLAX for constipation Continue Lovenox for DVT prophylaxis (gastric occult from NG drainage was negative) Greater than 45 minutes of critical care time spent seeing and evaluating the patient. 04/10/17 Debbie Continue with levofloxacin and cefepime for antimicrobial coverage - ID recommending an approximate 10 day course. Will continue with Solu-Medrol at 40mg IV q 8 hours -started on 03/26/17. Potentially could start to decrease. Continue neb treatments and pulmonary toilet. Nutritional support with DH tube feeding. Potassium normal. LFT with gradual increase-potential fatty liver secondary to continuous TF. Continue Lasix. Weight is down approximately 22 kg over the past 1 week. Renal status stable. Blood sugars showing persistent elevation in the low to mid 200's. Will increase Lantus to 34 units at night. 04/11/17 Continue with levofloxacin and cefepime for antimicrobial coverage - ID recommending an approximate 10 day course. With increased temp, persistent leukocytosis, steroid and antibiotic use will start Diflucan 200mg IV daily. Continue mechanical ventilation for respiratory support. Pulm decreased Solu-Medrol to 40mg IV q 12 hours. Continue neb treatments and pulmonary toilet. Slowly able to wean down FIO2. Nutritional support with DH tube feeding. Continue Lasix 20 mg IV BID. Creatinine and BP stable. Potassium with increase to 5.4 this am. Blood sugars still with elevations - will continue current regimen, watching for decrease with decreased Solu-Medrol. Condition critical, but stable. Continued CCU care needed secondary to respiratory failure and mechanical ventilation. 04/12/17 Continue with levofloxacin and cefepime for antimicrobial coverage - ID recommending an approximate 10 day course. Diflucan 200mg IV daily started 04/11/17. Continue mechanical ventilation for respiratory support - Solu-Medrol at 40mg IV q 12 hours. O2 needs increased today - likely mucous plugging. Creatinine with increase to 1.1. Edema much improved. Will decrease Lasix to 20mg daily to minimize overdiuresis. Blood sugars still with elevations - Increase Lantus to 38 units at HS.
[2017-04-12] MEDS ORDERED: VANCOMYCIN - PHARMACY CONSULT MC ONE (17:55)
[2017-04-12] MEDS ORDERED: INSULIN GLARGINE 100unit/ml INJECTION SQ SCH (21:00)
[2017-04-13] MEDS: ALBUTEROL/IPRATROPIUM 2.5mg-0.5mg/3ml NEB AEROSOL SCH ×7 (00:06→23:34)
[2017-04-13] MEDS: INSULIN ASPART 100unit/ml INJECTION SQ SCH ×4 (00:54→18:05)
[2017-04-13] MEDS: INSULIN ASPART 100unit/ml INJECTION SQ PRN ×3 (00:54→11:09)
[2017-04-13] MEDS: FentaNYL 1,000 MCG in NS 80 ML IV PRN ×4 (01:04→20:39)
[2017-04-13] MEDS: SODIUM CL 3% INHAL.SOLN 15ml NEB AEROSOL SCH ×5 (02:36→21:24)
[2017-04-13] MEDS: METOCLOPRAMIDE 10mg/2ml INJECTION IVP SCH ×4 (03:22→20:14)
[2017-04-13] MEDS: GUAIFENESIN 200mg/10ml ORAL LIQUID PO SCH ×4 (03:23→20:13)
[2017-04-13] MEDS: CEFEPIME 2 GM in NS 100 ML IV SCH ×3 (03:26→19:16)
[2017-04-13] MEDS: RTU SALINE IV PRN ×2 (06:04→15:16)
[2017-04-13] MEDS: MIDAZOLAM IV PRN ×2 (06:04→15:16)
[2017-04-13] MEDS: BUDESONIDE INH.SOLN 0.5mg/2ml NEB AEROSOL SCH ×2 (07:16→18:59)
--- NOTE | 2017-04-13 08:14 | Pharmacy Consult-Antibiotics ---
Pharmacy Consult-Vancomycin - Laboratory Information WBC 13.6 T/MM3 (4.5-11.0) H 04/13/17 05:18 BUN 38.0 MG/DL (9-20) H 04/13/17 05:18 Creatinine 0.8 MG/DL (0.8-1.5) D 04/13/17 05:18 Procalcitonin 0.12 NG/ML 04/11/17 05:01 - Consult Information VANCOMYCIN CONSULT: Dx: VAP Current Renal Fx: SCr = 0.8mg/dl. Will give Vancomycin 2,000mg IV q8hrs. Will continue to monitor and adjust regimen to maintain therapeutic levels. Thank you.
[2017-04-13] MEDS: FUROSEMIDE 20 MG/2 ML INJECTION IVP SCH (08:45)
[2017-04-13] MEDS: METHYLPREDNISOLONE SOD SUCC 40mg/ml INJECTION IVP SCH ×2 (08:45→20:14)
[2017-04-13] MEDS: PANTOPRAZOLE 40 MG INJECTION IVP SCH ×2 (08:45→20:13)
[2017-04-13] MEDS: ENOXAPARIN 40 MG/0.4 ML INJECTION SQ SCH (08:47)
[2017-04-13] MEDS: CHLORHEXIDINE 0.12% ORAL RINSE PO SCH ×2 (08:47→20:13)
[2017-04-13] MEDS: REFRESH CLASSIC Eye Drops 0.4ml EACH EYE PRN (08:48)
[2017-04-13] MEDS: NYSTATIN 500,000 units/5 ml ORAL LIQUID PO SCH ×4 (08:48→20:12)
[2017-04-13] MEDS: TERFINAFINE 1% CREAM 12 G TUBE TOP SCH ×2 (08:48→20:17)
--- NOTE | 2017-04-13 10:39 | XRay Report ---
Indication: f/u PROCEDURE: XR chest 1V: Encounter: Initial Comparison: April 12, 2017 Findings: Support devices are stable. Evaluation is somewhat limited due to exposure technique and patient body habitus. Lungs are hypoinflated with patchy bilateral airspace disease. This may be slightly worsened in the upper lobes. No gross pneumothorax. Small effusions. Heart size and mediastinal contours are stable. Impression: Limited exam due to technique with possible worsening in upper lobe infiltrates. .
--- NOTE | 2017-04-13 10:51 | XRay Report ---
Indication: Change in status PROCEDURE: XR chest 1V: Encounter: Initial Comparison: 04/11/2017 Findings: Support devices are stable. Persistently hypoinflated lungs with bilateral perihilar airspace consolidation. No gross pneumothorax. Trace pleural effusions. Heart size and mediastinal contours are stable. Impression: No change. .
[2017-04-13] MEDS: LEVOFLOXACIN PB 750 MG/150 ML BAG IV SCH (13:58)
--- NOTE | 2017-04-13 14:39 | Pulmonology Progress Note ---
Subjective Principal diagnosis: bradycardia Interval history: Now on FiO2 100%, Peep 14. CXR shows worsening diffuse opacities c/w ARDS WBC's 13.5 K still febrile Nursing and RT report mild increase in ETT secretions. Still tolerating TF's Sedated on fentanyl and versed Exam Vital signs: Temperature 97.6 F 04/13/17 12:00 Pulse Rate 80 04/13/17 13:21 Respiratory Rate 22 04/13/17 13:21 Blood Pressure 124/61 04/13/17 12:00 Pulse Oximetry 93 04/13/17 13:21 - Constitutional no acute distress Comments: sedated - Routine HEENT Exam Head: Present: normocephalic, atraumatic - Routine Neck Exam Present: supple - Routine Chest/Breast/Axilla Exam Chest wall: Present: tenderness - Routine Respiratory Exam Present: patient mechanically ventilated, rhonchi - Routine Cardiovascular Exam Present: RRR - Routine Abdominal Exam Present: soft, guarding - Routine Extremities Exam Present: edema. Absent: cyanosis - Urinary Catheter Management Urethral Cath placed during this visit: yes Insertion date: 04/02/17 Insertion time: 22:20 Assessment and Plan (1) Acute respiratory failure with hypoxia Status: Acute Assessment and plan: worsening ARDS again. Still on FiO2 100, peep 14. CXR shows diffuse airspace infiltrates. I would be concerned about VAP in this patient and agree with expansion of antibiotics to Vanco/Cefepime/Levaquin. check sputum cultures and BNP. continue iv corticosteroids 40 BID, and furosemide 20 BID. Discussed with family Current Visit: Yes (2) ARDS (adult respiratory distress syndrome) Status: Acute Current Visit: Yes (3) Community acquired pneumonia Status: Acute Current Visit: No - Assessment and Plan Acute Hypoxic hypercapnic Respiratory Failure CAP Pneumonia Sepsis/ARDS Likely COPD Likely GLADYS - will need OP PSG Elevated LFT's HyperKalemia Fluid overload - Time Spent With Patient Total time spent is greater than 50% in coordination of care (as documented) at patient's floor/unit and/or counseling patient: 25 - 35 minutes
[2017-04-13] MEDS: FLUCONAZOLE PB 200 MG/100 ML BAG IV SCH (15:16)
[2017-04-13] MEDS ORDERED: INSULIN ASPART 100unit/ml INJECTION SQ ONE (16:30)
--- NOTE | 2017-04-13 16:32 | Progress Note ---
- Date 04/13/17 Subjective: F/U: Acute respiratory failure, ARDS, Pneumonia Sedated on vent. O2 needs with increase since this morning - requiring 100% FIO2. Increased secretions. WBC with increase from yesterday, but still lower than 2 days ago. CXR showing more infiltrate. Intake more than output-evening dose of Lasix stopped last night as edema improving and creatinine did show increase. Creatinine decrease to 0.8 this am. Potassium 5.3. Sugars still with elevation. Sedation holiday's being done by nursing. Objective Vital signs: Temperature 100.5 F H 04/13/17 16:00 Pulse Rate 85 04/13/17 15:01 Respiratory Rate 18 04/13/17 15:23 Blood Pressure 124/61 04/13/17 12:00 Pulse Oximetry 95 04/13/17 15:23 Rhythm: Normal Sinus Rhythm Height/Weight/BMI: Height 1.8 m Weight 141.5 kg Body Mass Index 51.2 - Constitutional Present: morbidly obese - Routine HEENT Exam Head: Present: normocephalic, atraumatic - Routine Respiratory Exam Present: decreased breath sounds, distant breath sounds, diminished air movement - Routine Cardiovascular Exam Present: RRR, no murmur - Routine Abdominal Exam Present: non tender. Absent: normoactive bowel sounds (decreased ) - Routine Exam Comments: Walker present - Routine Extremities Exam Present: edema (trace LE ), pulses intact. Absent: cyanosis, clubbing Comments: SCD in place - Routine Musculoskeletal Exam Musculoskeletal: Present: no clubbing or cyanosis - Routine Skin Exam Present: warm - Routine Neurological Exam Sedated on vent - Routine Psychiatric Exam Comments: Sedated on vent Results - Labs CBC & Chem 7: 04/13/17 05:18 04/13/17 05:18 Microbiology Results: Microbiology 04/13/17 14:50 Sputum, Suctioned Sputum Culture - Preliminary Culture Initiated - Results Pending 04/09/17 10:00 Port/Picc Blood Culture - Preliminary No Growth After 4 Days 04/09/17 09:24 Port/Picc Blood Culture - Preliminary No Growth After 4 Days 04/06/17 10:37 Port/Picc Gram Stain - Final 04/06/17 10:37 Port/Picc Blood Culture - Final Corynebacterium species 04/06/17 11:03 Port/Picc Blood Culture - Final No Growth After 5 Days 04/07/17 08:43 Nasopahrynx Gram Stain - Final 04/07/17 08:43 Nasopahrynx Nasopharyngeal Culture - Final Normal Respiratory [place] 04/03/17 11:30 Sputum, Suctioned Gram Stain - Final 04/03/17 11:30 Sputum, Suctioned Sputum Culture - Final Normal Respiratory [place] 04/03/17 10:38 Urine Legionella Urinary Antigen - Final 04/03/17 10:38 Urine Streptococcus pneumoniae Antigen (M - Final - ABG Interpretation ABG results: 04/12/17 04:39 ABG pH 7.340 L ABG pCO2 66 H* ABG pO2 112 H ABG HCO3 36 H ABG Total CO2 37.6 H ABG O2 Saturation 98.0 ABG Base Excess 7.7 H Assessment and Plan (1) Community acquired pneumonia Current visit: No Status: Acute Assessment and Plan: Assessment Acute hypoxic and hypercarbic respiratory failure-requiring mechanical ventilation. Intubated on 04/02/2017. Versed and fentanyl for sedation ARDS Community - acquired pneumonia-severe, requiring intubation. Levaquin initiated 04/03/2017 and Rocephin initiated 04/02/2017. Changed Rocephin to cefepime on . Sepsis secondary to pneumonia on admission Manifestations: Tachycardia, tachypnea, leukocytosis. Lactate normal on admission CODE BLUE/bradycardia versus short lasting asystole on 04/06/2017-patient received chest compressions 3 -EKG and troponin post event were normal Elevated d-dimer 555 - Lovenox therapeutic dose initiated 04/06/2017. Blood culture one of 2 on 04/06/2027 positive for corynebacterium -discussed with Dr. Johnson. This is most likely contaminant. Anasarca - improving; significant decrease of fluid since admit Echocardiogram revealed normal EF, left ventricular hypertrophy, PA pressure 41 with mild pulmonary hypertension (echo 04/06/2017 unchanged on recheck)-BNP has been normal. Diabetes Mellitus Type 2 - A1C 7.1 on admission (new diagnosis)-on Lantus, scheduled NovoLog and sliding scale insulin Possible COPD Probable obstructive sleep apnea Chronic back pain with high-dose ibuprofen and Tylenol use prior to admission Tinea corporis/ringworm? Tobacco dependence Hyperkalemia with potassium up to 5.5 of undetermined etiology (Not POA). Possible sinusitis right nears with copious thick nasal secretions-specimen sent for Gram stain and culture with sensitivity Mild hypernatremia (Not POA) Morbid obesity-BMI 42.0 Plan Continue with levofloxacin and cefepime for antimicrobial coverage - ID recommending an approximate 10 day course. Diflucan 200mg IV daily started 04/11/17. Vancomycin started on 04/12/17 secondary to temp elevations. Continue mechanical ventilation for respiratory support. Increasing FIO2 - needing 100%. Sputum culture ordered by Dr Pineda. Solu-Medrol at 40mg IV q 12 hours. Continue neb treatments and pulmonary toilet. Nutritional support with DH tube feeding. Creatinine did decrease to 0.8. With increasing oxygen needs and increased intake as compared to output past 2 days will give 20mg IV Lasix. Blood sugars still with elevations - Increase Lantus to 42 units at HS. Recheck CMP, CBC, and CXR in am secondary to pneumonia, respiratory failure, and medication use. Condition critical. Continued CCU care needed secondary to respiratory failure and mechanical ventilation. Case discussed with CCU nursing, pulmonology, and family. Time spent with patient care 35 minutes. DVT Prophylaxis: SCD's, Lovenox Resuscitation Status: Full Code - Time spent with patient Time with patient PN: 35 minutes - Physician Narrative Physician: Wally Lewis MD Narrative: Date: 04/13/17 Time: 1628 Hospital Course Summary Disclaimer: The visit summary below is not to be considered part of the above Progress Note. Hospital Course: Assessment Respiratory insufficiency with hypoxia Sepsis secondary to pneumonia Manifestations: Tachycardia, tachypnea, leukocytosis Community-acquired pneumonia Anasarca Morbid obesity-BMI 42.0 Hyperglycemia-POA Tinea corporis Tobacco dependence 04/02/17 Hospital admission Admit to inpatient status under the care of the hospitalist service, Dr. Lewis attending. It is expected that his stay will exceed 2 overnights given his sepsis secondary to pneumonia and overall condition. SCDs and Lovenox for DVT prophylaxis Urinalysis for laboratory completeness. Repeat CBC and BMP in am to follow leukocytosis, renal function and electrolytes. Schedule echocardiogram to evaluate cardiac structure and function given his anasarca and dyspnea. Oxygen, DuoNeb treatments, Acapella, and guaifenesin for respiratory symptoms. Continue Rocephin and Zithromax initiated and the emergency room. Blood cultures were drawn prior to antibiotic initiation. RT consult tobacco cessation. Terbinafine topically for his tinea corporis Patient wishes to be a full code. Case discussed with Dr. Lewis. Case management will need to assist in finding patient a PCP. 04/04/17 12:03 Plan The patient continues to require mechanical ventilation and is on 100% FiO2 regarding his ARDS and pneumonia. Continue ventilator support - Dr. Pineda is following. His help is greatly appreciated. Continue Levaquin initiated 04/03/2017 and Rocephin initiated 04/02/2017 Continue Solu-Medrol Discussed with Dr. Pineda, will change Lovenox to prophylactic dose. Venous Doppler of the legs were negative for DVT. No signs of right heart strain on echocardiogram. Advance tube feedings Nutren luminary 1.5 to goal of 70 ML's per hour. Start free water 400 ML's every 8 hours. DC IV fluids Vishal blood pressure off of IV fluids. May need to initiate antihypertensive Start Lantus 10 units subcutaneous daily. Increase to medium dose sliding scale insulin. Continue Lasix 40 mg IV every 12. Patient is diuresing well. Check CBC and renal panel tomorrow. Chest x-ray tomorrow. Assess with Dr. Pineda, the patient's significant other, and the patient's nurse. 04/05/17 09:31 Plan The patient continues to require mechanical ventilation and is now on 95% FiO2 regarding his ARDS and pneumonia. Continue ventilator support per Dr. Pineda Continue Levaquin initiated 04/03/2017 and Rocephin initiated 04/02/2017. Continue Solu-Medrol Regarding hyperkalemia, will try to change to feeding to a renal tube feeds. Check ABG. (7.32/79/103 on 95% FiO2) Recheck basic metabolic profile later today. May need to increase fluids followed by diuresis for hyperkalemia Increase Lantus to 20 units subcutaneous daily for hyperglycemia. Increase sliding scale insulin to high dose Start Reglan and Dulcolax suppositories to stimulate GI tract. Decrease tube feed rate to 50 ML's for now. Greater than 40 minutes critical care time. 04/07/2017 Plan The patient continues to require mechanical ventilation and FiO2 100% regarding his ARDS and pneumonia. The patient has tolerated discontinuation of propofol and initiation of Versed. The patient is tolerating his tube feedings. Will advance as tolerated. Will increase free water to 200 ML's every 4 hours and decrease Lasix to 20 mg IV every 12 regarding his elated sodium. Continue to monitor blood pressure closely. Continue Levaquin initiated 04/03/2017 and Rocephin initiated 04/02/2017. Continue Solu-Medrol Regarding hyperkalemia-is resolved. Continue renal tube feeds Continue Reglan and Dulcolax suppositories to stimulate GI tract. Greater than 45 minutes of critical care time spent seeing and evaluating the patient. The patient's brother was updated. 04/08/17 09:49 Plan Overall, the patient is stable. He is diuresing well. Weight is down approximately 22 kg over the past 1 week. He has been on the ventilator for one week now. FiO2 turned down to 95% this morning. Consulted Dr. Jonhson regarding positive blood culture and antibiotic recommendations The patient continues to require mechanical ventilation regarding his ARDS and pneumonia. FiO2 down to 95% this morning The patient is tolerating his tube feedings. Will advance as tolerated to goal. Will increase free water to 250 ML's every 4 hours. Continue Lasix 20 mg IV every 12. Continue to monitor blood pressure closely. Continue Levaquin initiated 04/03/2017 and Rocephin initiated 04/02/2017. Continue Solu-Medrol and breathing treatments Regarding hyperkalemia- Continue renal tube feeds Continue Reglan and Dulcolax suppositories to stimulate GI tract. Regarding possible mild upper GI bleed, will Gastric occult NG drainage. Hold Lovenox for now. Greater than 45 minutes of critical care time spent seeing and evaluating the patient. 04/09/17 19:52 Plan Overall, the patient is improving. FiO2 is now down to 70%. The patient appears to be nearly euvolemic at this time. We'll continue Lasix. Weight is down approximately 22 kg over the past [address] Johnson recommends approximately 10 days of broad-spectrum antibiotics for his pneumonia. She recommended discontinuation of vancomycin today with corynebacterium found in one of 2 blood cultures on April 06 most likely being a contaminant. Currently at goal rate on tube feedings. He is on a renal formulation because of hyperkalemia. May need to increase free water further if sodium does not improving Continue Levaquin initiated 04/03/2017 and Rocephin initiated 04/02/2017. Rocephin discontinued on 04/06/2017 and cefepime started. Vancomycin started and discontinued on 04/09/2017 Continue Solu-Medrol and breathing treatments Add MiraLAX for constipation Continue Lovenox for DVT prophylaxis (gastric occult from NG drainage was negative) Greater than 45 minutes of critical care time spent seeing and evaluating the patient. 04/10/17 Debbie Continue with levofloxacin and cefepime for antimicrobial coverage - ID recommending an approximate 10 day course. Will continue with Solu-Medrol at 40mg IV q 8 hours -started on 03/26/17. Potentially could start to decrease. Continue neb treatments and pulmonary toilet. Nutritional support with DH tube feeding. Potassium normal. LFT with gradual increase-potential fatty liver secondary to continuous TF. Continue Lasix. Weight is down approximately 22 kg over the past 1 week. Renal status stable. Blood sugars showing persistent elevation in the low to mid 200's. Will increase Lantus to 34 units at night. 04/11/17 Continue with levofloxacin and cefepime for antimicrobial coverage - ID recommending an approximate 10 day course. With increased temp, persistent leukocytosis, steroid and antibiotic use will start Diflucan 200mg IV daily. Continue mechanical ventilation for respiratory support. Pulm decreased Solu-Medrol to 40mg IV q 12 hours. Continue neb treatments and pulmonary toilet. Slowly able to wean down FIO2. Nutritional support with DH tube feeding. Continue Lasix 20 mg IV BID. Creatinine and BP stable. Potassium with increase to 5.4 this am. Blood sugars still with elevations - will continue current regimen, watching for decrease with decreased Solu-Medrol. Condition critical, but stable. Continued CCU care needed secondary to respiratory failure and mechanical ventilation. 04/12/17 Continue with levofloxacin and cefepime for antimicrobial coverage - ID recommending an approximate 10 day course. Diflucan 200mg IV daily started 04/11/17. Continue mechanical ventilation for respiratory support - Solu-Medrol at 40mg IV q 12 hours. O2 needs increased today - likely mucous plugging. Creatinine with increase to 1.1. Edema much improved. Will decrease Lasix to 20mg daily to minimize overdiuresis. Blood sugars still with elevations - Increase Lantus to 38 units at HS. 04/13/17 Continue with levofloxacin and cefepime for antimicrobial coverage - ID recommending an approximate 10 day course. Diflucan 200mg IV daily started 04/11/17. Vancomycin started on 04/12/17 secondary to temp elevations. Continue mechanical ventilation for respiratory support. Increasing FIO2 - needing 100%. Sputum culture ordered by Dr Pineda. Solu-Medrol at 40mg IV q 12 hours. Continue neb treatments and pulmonary toilet. Nutritional support with DH tube feeding. Creatinine did decrease to 0.8. With increasing oxygen needs and increased intake as compared to output past 2 days will give 20mg IV Lasix. Blood sugars still with elevations - Increase Lantus to 42 units at HS.
[2017-04-13] MEDS ORDERED: FUROSEMIDE 20 MG/2 ML INJECTION IVP ONE (17:58)
[2017-04-13] MEDS: ACETAMINOPHEN 160mg/5ml ORAL LIQUID PO PRN (18:02)
[2017-04-13] MEDS ORDERED: INSULIN GLARGINE 100unit/ml INJECTION SQ SCH (21:00)
[2017-04-14] MEDS: INSULIN ASPART 100unit/ml INJECTION SQ PRN ×4 (00:14→18:23)
[2017-04-14] MEDS: INSULIN ASPART 100unit/ml INJECTION SQ SCH ×4 (00:14→18:23)
[2017-04-14] MEDS: RTU SALINE IV PRN ×3 (00:24→18:49)
[2017-04-14] MEDS: MIDAZOLAM IV PRN ×3 (00:24→18:49)
[2017-04-14] MEDS: METOCLOPRAMIDE 10mg/2ml INJECTION IVP SCH ×4 (03:08→20:07)
[2017-04-14] MEDS: FentaNYL 1,000 MCG in NS 80 ML IV PRN ×4 (03:10→22:38)
[2017-04-14] MEDS: GUAIFENESIN 200mg/10ml ORAL LIQUID PO SCH ×4 (03:11→20:06)
[2017-04-14] MEDS: CEFEPIME 2 GM in NS 100 ML IV SCH ×3 (03:12→20:05)
[2017-04-14] MEDS: SODIUM CL 3% INHAL.SOLN 15ml NEB AEROSOL SCH ×4 (03:31→22:10)
[2017-04-14] MEDS: ALBUTEROL/IPRATROPIUM 2.5mg-0.5mg/3ml NEB AEROSOL SCH ×5 (03:31→19:43)
[2017-04-14] MEDS: BUDESONIDE INH.SOLN 0.5mg/2ml NEB AEROSOL SCH ×2 (06:55→19:43)
[2017-04-14] MEDS: PANTOPRAZOLE 40 MG INJECTION IVP SCH ×2 (08:12→20:07)
[2017-04-14] MEDS: SALINE FLUSH 10ml SYRINGE IV PRN ×5 (08:13→20:05)
[2017-04-14] MEDS: ENOXAPARIN 40 MG/0.4 ML INJECTION SQ SCH (08:21)
[2017-04-14] MEDS: REFRESH CLASSIC Eye Drops 0.4ml EACH EYE PRN (08:21)
[2017-04-14] MEDS: ALBUTEROL/IPRATROPIUM 2.5mg-0.5mg/3ml NEB AEROSOL PRN ×2 (09:02→22:10)
[2017-04-14] MEDS: CHLORHEXIDINE 0.12% ORAL RINSE PO SCH ×2 (09:38→20:08)
[2017-04-14] MEDS: METHYLPREDNISOLONE SOD SUCC 40mg/ml INJECTION IVP SCH ×2 (09:41→20:07)
[2017-04-14] MEDS: FUROSEMIDE 20 MG/2 ML INJECTION IVP SCH (09:46)
[2017-04-14] MEDS: NYSTATIN 500,000 units/5 ml ORAL LIQUID PO SCH ×4 (09:59→20:05)
[2017-04-14] MEDS: TERFINAFINE 1% CREAM 12 G TUBE TOP SCH ×2 (10:06→20:09)
[2017-04-14] MEDS: LEVOFLOXACIN PB 750 MG/150 ML BAG IV SCH (10:51)
--- NOTE | 2017-04-14 12:45 | Pulmonology Progress Note ---
Subjective Principal diagnosis: bradycardia Interval history: Now on FiO2 65%, Peep 14. CXR shows markedly improved bilateral opacities compared to yesterday WBC's 13.4 K fever curve is improved. secretions are stable Still tolerating TF's Sedated on fentanyl and versed, but awakens to voice. family at bedside are concerned about foot swelling Exam Vital signs: Temperature 99.2 F 04/14/17 09:00 Pulse Rate 75 04/14/17 11:00 Respiratory Rate 18 04/14/17 11:34 Blood Pressure 116/56 04/14/17 05:00 Pulse Oximetry 95 04/14/17 11:34 - Constitutional no acute distress, obese - Routine HEENT Exam Head: Present: normocephalic Eye: Absent: conjunctival icterus - Routine Neck Exam Present: supple - Routine Respiratory Exam Present: patient mechanically ventilated, decreased breath sounds. Absent: accessory muscle use - Routine Cardiovascular Exam Present: RRR - Routine Abdominal Exam Present: soft. Absent: guarding - Routine Extremities Exam Present: edema, pulses intact - Urinary Catheter Management Urethral Cath placed during this visit: yes Insertion date: 04/02/17 Insertion time: 22:20 Assessment and Plan (1) Acute respiratory failure with hypoxia Status: Acute Assessment and plan: Overall looks substantially improved compared to yesterday. sputum culture neg so far, on expanded Abx FiO2 down to 65%. We will decrease peep to see if he tolerates. Given Foot swelling and family concern, we will check venous doppler left lower extremity. Ok to repeat ABG today, though I suspect he has compensated respiratory acidosis for which we will not make any major changes. Current Visit: Yes (2) ARDS (adult respiratory distress syndrome) Status: Acute Current Visit: Yes (3) Community acquired pneumonia Status: Acute Current Visit: No - Assessment and Plan Acute Hypoxic hypercapnic Respiratory Failure CAP Pneumonia Sepsis/ARDS Likely COPD Likely GLADYS - will need OP PSG Elevated LFT's HyperKalemia Fluid overload - Time Spent With Patient Total time spent is greater than 50% in coordination of care (as documented) at patient's floor/unit and/or counseling patient: 25 - 35 minutes
[2017-04-14] MEDS: FLUCONAZOLE PB 200 MG/100 ML BAG IV SCH (13:34)
[2017-04-14] MEDS ORDERED: ALTEPLASE (Cathflo*) 2mg INJECTION IV ONE (13:54)
--- NOTE | 2017-04-14 14:31 | Progress Note ---
- Date 04/14/17 Subjective: F/U: Acute respiratory failure, ARDS, Pneumonia Sedated on vent. FIO2 able to be decreased. Nursing reports tolerating sedation- will open eyes briefly with family. Edema to legs decreased, but bilateral pedal edema present. Minimal TF residuals. Urine output stable. BP/HR stable. Objective Vital signs: Temperature 99.2 F 04/14/17 13:00 Pulse Rate 75 04/14/17 11:00 Respiratory Rate 18 04/14/17 11:34 Blood Pressure 116/56 04/14/17 05:00 Pulse Oximetry 95 04/14/17 11:34 Rhythm: Normal Sinus Rhythm Height/Weight/BMI: Height 1.8 m Weight 138.7 kg Body Mass Index 51.2 - Constitutional Present: well nourished, well developed, morbidly obese - Routine HEENT Exam Head: Present: normocephalic, atraumatic - Routine Respiratory Exam Present: patient mechanically ventilated, decreased breath sounds. Absent: rales, rhonchi, wheezes - Routine Cardiovascular Exam Present: RRR, no murmur - Routine Abdominal Exam Present: soft. Absent: normoactive bowel sounds (Decreased ) - Routine Exam Comments: Walker present - Routine Extremities Exam Present: edema (Pedal bilaterally ), pulses intact (Strong radial pulses bilaterally. Left DP decreased as compaired to right. ) - Routine Skin Exam Present: warm (Moist ) - Routine Neurological Exam Sedated - Routine Psychiatric Exam Comments: Sedated Results - Labs CBC & Chem 7: 04/14/17 09:55 04/14/17 09:55 Microbiology Results: Microbiology 04/09/17 10:00 Port/Picc Blood Culture - Final No Growth After 5 Days 04/09/17 09:24 Port/Picc Blood Culture - Final No Growth After 5 Days 04/13/17 14:50 Sputum, Suctioned Gram Stain - Final 04/13/17 14:50 Sputum, Suctioned Sputum Culture - Preliminary Culture Initiated - Results Pending 04/06/17 10:37 Port/Picc Gram Stain - Final 04/06/17 10:37 Port/Picc Blood Culture - Final Corynebacterium species 04/06/17 11:03 Port/Picc Blood Culture - Final No Growth After 5 Days 04/07/17 08:43 Nasopahrynx Gram Stain - Final 04/07/17 08:43 Nasopahrynx Nasopharyngeal Culture - Final Normal Respiratory Jesus 04/03/17 11:30 Sputum, Suctioned Gram Stain - Final 04/03/17 11:30 Sputum, Suctioned Sputum Culture - Final Normal Respiratory Jesus 04/03/17 10:38 Urine Legionella Urinary Antigen - Final 04/03/17 10:38 Urine Streptococcus pneumoniae Antigen (M - Final - ABG Interpretation ABG results: 04/14/17 13:53 ABG pH 7.370 ABG pCO2 67 H* ABG pO2 79 L ABG HCO3 39 H ABG Total CO2 40.8 H ABG O2 Saturation 95.0 ABG Base Excess 10.9 H Assessment and Plan (1) Community acquired pneumonia Current visit: No Status: Acute Assessment and Plan: Assessment Acute hypoxic and hypercarbic respiratory failure-requiring mechanical ventilation. Intubated on 04/02/2017. Versed and fentanyl for sedation ARDS Community - acquired pneumonia-severe, requiring intubation. Levaquin initiated 04/03/2017 and Rocephin initiated 04/02/2017. Changed Rocephin to cefepime on . Sepsis secondary to pneumonia on admission Manifestations: Tachycardia, tachypnea, leukocytosis. Lactate normal on admission CODE BLUE/bradycardia versus short lasting asystole on 04/06/2017-patient received chest compressions 3 - EKG and troponin post event were normal Elevated d-dimer 555 - Lovenox therapeutic dose initiated 04/06/2017. Blood culture one of 2 on 04/06/2027 positive for corynebacterium -discussed with Dr. Johnson. This is most likely contaminant. Anasarca - improving; significant decrease of fluid since admit Echocardiogram revealed normal EF, left ventricular hypertrophy, PA pressure 41 with mild pulmonary hypertension (echo 04/06/2017 unchanged on recheck)-BNP has been normal. Diabetes Mellitus Type 2 - A1C 7.1 on admission (new diagnosis)-on Lantus, scheduled NovoLog and sliding scale insulin Possible COPD Probable obstructive sleep apnea Chronic back pain with high-dose ibuprofen and Tylenol use prior to admission Tinea corporis/ringworm? Tobacco dependence Hyperkalemia with potassium up to 5.5 of undetermined etiology (Not POA). Possible sinusitis right nears with copious thick nasal secretions - C/S showing normal jesus Mild hypernatremia (Not POA) Morbid obesity-BMI 42.0 Plan Continue with levofloxacin and cefepime for antimicrobial coverage - ID recommending an approximate 10 day course. Diflucan 200mg IV daily started 04/11/17. Vancomycin started on 04/12/17 secondary to temp elevations. Continue mechanical ventilation for respiratory support. Sputum culture ordered 04/13 with results pending. Solu-Medrol at 40mg IV q 12 hours. Continue neb treatments and pulmonary toilet. Nutritional support with DH tube feeding. Potassium and sodium normal. Blood sugars still with elevations - Increase Lantus to 46 units at HS. Doppler legs pending - ? DVT as more pedal edema present. Recheck CMP, CBC, and CXR in am secondary to pneumonia, respiratory failure, and medication use. Condition critical. Continued CCU care needed secondary to respiratory failure and mechanical ventilation. Case discussed with CCU nursing, pulmonology, and family. Time spent with patient care 25 minutes. DVT Prophylaxis: SCD's, Lovenox Resuscitation Status: Full Code - Time spent with patient Time with patient PN: 25 minutes - Physician Narrative Physician: Wally Lewis MD Narrative: Date: 04/14/17 Time: 1428 Hospital Course Summary Disclaimer: The visit summary below is not to be considered part of the above Progress Note. Hospital Course: Assessment Respiratory insufficiency with hypoxia Sepsis secondary to pneumonia Manifestations: Tachycardia, tachypnea, leukocytosis Community-acquired pneumonia Anasarca Morbid obesity-BMI 42.0 Hyperglycemia-POA Tinea corporis Tobacco dependence 04/02/17 Hospital admission Admit to inpatient status under the care of the hospitalist service, Dr. Lewis attending. It is expected that his stay will exceed 2 overnights given his sepsis secondary to pneumonia and overall condition. SCDs and Lovenox for DVT prophylaxis Urinalysis for laboratory completeness. Repeat CBC and BMP in am to follow leukocytosis, renal function and electrolytes. Schedule echocardiogram to evaluate cardiac structure and function given his anasarca and dyspnea. Oxygen, DuoNeb treatments, Acapella, and guaifenesin for respiratory symptoms. Continue Rocephin and Zithromax initiated and the emergency room. Blood cultures were drawn prior to antibiotic initiation. RT consult tobacco cessation. Terbinafine topically for his tinea corporis Patient wishes to be a full code. Case discussed with Dr. Lewis. Case management will need to assist in finding patient a PCP. 04/04/17 12:03 Plan The patient continues to require mechanical ventilation and is on 100% FiO2 regarding his ARDS and pneumonia. Continue ventilator support - Dr. Pineda is following. His help is greatly appreciated. Continue Levaquin initiated 04/03/2017 and Rocephin initiated 04/02/2017 Continue Solu-Medrol Discussed with Dr. Pineda, will change Lovenox to prophylactic dose. Venous Doppler of the legs were negative for DVT. No signs of right heart strain on echocardiogram. Advance tube feedings Nutren luminary 1.5 to goal of 70 ML's per hour. Start free water 400 ML's every 8 hours. DC IV fluids Vishal blood pressure off of IV fluids. May need to initiate antihypertensive Start Lantus 10 units subcutaneous daily. Increase to medium dose sliding scale insulin. Continue Lasix 40 mg IV every 12. Patient is diuresing well. Check CBC and renal panel tomorrow. Chest x-ray tomorrow. Assess with Dr. Pineda, the patient's significant other, and the patient's nurse. 04/05/17 09:31 Plan The patient continues to require mechanical ventilation and is now on 95% FiO2 regarding his ARDS and pneumonia. Continue ventilator support per Dr. Pineda Continue Levaquin initiated 04/03/2017 and Rocephin initiated 04/02/2017. Continue Solu-Medrol Regarding hyperkalemia, will try to change to feeding to a renal tube feeds. Check ABG. (7.32/79/103 on 95% FiO2) Recheck basic metabolic profile later today. May need to increase fluids followed by diuresis for hyperkalemia Increase Lantus to 20 units subcutaneous daily for hyperglycemia. Increase sliding scale insulin to high dose Start Reglan and Dulcolax suppositories to stimulate GI tract. Decrease tube feed rate to 50 ML's for now. Greater than 40 minutes critical care time. 04/07/2017 Plan The patient continues to require mechanical ventilation and FiO2 100% regarding his ARDS and pneumonia. The patient has tolerated discontinuation of propofol and initiation of Versed. The patient is tolerating his tube feedings. Will advance as tolerated. Will increase free water to 200 ML's every 4 hours and decrease Lasix to 20 mg IV every 12 regarding his elated sodium. Continue to monitor blood pressure closely. Continue Levaquin initiated 04/03/2017 and Rocephin initiated 04/02/2017. Continue Solu-Medrol Regarding hyperkalemia-is resolved. Continue renal tube feeds Continue Reglan and Dulcolax suppositories to stimulate GI tract. Greater than 45 minutes of critical care time spent seeing and evaluating the patient. The patient's brother was updated. 04/08/17 09:49 Plan Overall, the patient is stable. He is diuresing well. Weight is down approximately 22 kg over the past 1 week. He has been on the ventilator for one week now. FiO2 turned down to 95% this morning. Consulted Dr. Johnson regarding positive blood culture and antibiotic recommendations The patient continues to require mechanical ventilation regarding his ARDS and pneumonia. FiO2 down to 95% this morning The patient is tolerating his tube feedings. Will advance as tolerated to goal. Will increase free water to 250 ML's every 4 hours. Continue Lasix 20 mg IV every 12. Continue to monitor blood pressure closely. Continue Levaquin initiated 04/03/2017 and Rocephin initiated 04/02/2017. Continue Solu-Medrol and breathing treatments Regarding hyperkalemia- Continue renal tube feeds Continue Reglan and Dulcolax suppositories to stimulate GI tract. Regarding possible mild upper GI bleed, will Gastric occult NG drainage. Hold Lovenox for now. Greater than 45 minutes of critical care time spent seeing and evaluating the patient. 04/09/17 19:52 Plan Overall, the patient is improving. FiO2 is now down to 70%. The patient appears to be nearly euvolemic at this time. We'll continue Lasix. Weight is down approximately 22 kg over the past [address] Johnson recommends approximately 10 days of broad-spectrum antibiotics for his pneumonia. She recommended discontinuation of vancomycin today with corynebacterium found in one of 2 blood cultures on April 06 most likely being a contaminant. Currently at goal rate on tube feedings. He is on a renal formulation because of hyperkalemia. May need to increase free water further if sodium does not improving Continue Levaquin initiated 04/03/2017 and Rocephin initiated 04/02/2017. Rocephin discontinued on 04/06/2017 and cefepime started. Vancomycin started and discontinued on 04/09/2017 Continue Solu-Medrol and breathing treatments Add MiraLAX for constipation Continue Lovenox for DVT prophylaxis (gastric occult from NG drainage was negative) Greater than 45 minutes of critical care time spent seeing and evaluating the patient. 04/10/17 Debbie Continue with levofloxacin and cefepime for antimicrobial coverage - ID recommending an approximate 10 day course. Will continue with Solu-Medrol at 40mg IV q 8 hours -started on 03/26/17. Potentially could start to decrease. Continue neb treatments and pulmonary toilet. Nutritional support with DH tube feeding. Potassium normal. LFT with gradual increase-potential fatty liver secondary to continuous TF. Continue Lasix. Weight is down approximately 22 kg over the past 1 week. Renal status stable. Blood sugars showing persistent elevation in the low to mid 200's. Will increase Lantus to 34 units at night. 04/11/17 Continue with levofloxacin and cefepime for antimicrobial coverage - ID recommending an approximate 10 day course. With increased temp, persistent leukocytosis, steroid and antibiotic use will start Diflucan 200mg IV daily. Continue mechanical ventilation for respiratory support. Pulm decreased Solu-Medrol to 40mg IV q 12 hours. Continue neb treatments and pulmonary toilet. Slowly able to wean down FIO2. Nutritional support with DH tube feeding. Continue Lasix 20 mg IV BID. Creatinine and BP stable. Potassium with increase to 5.4 this am. Blood sugars still with elevations - will continue current regimen, watching for decrease with decreased Solu-Medrol. Condition critical, but stable. Continued CCU care needed secondary to respiratory failure and mechanical ventilation. 04/12/17 Continue with levofloxacin and cefepime for antimicrobial coverage - ID recommending an approximate 10 day course. Diflucan 200mg IV daily started 04/11/17. Continue mechanical ventilation for respiratory support - Solu-Medrol at 40mg IV q 12 hours. O2 needs increased today - likely mucous plugging. Creatinine with increase to 1.1. Edema much improved. Will decrease Lasix to 20mg daily to minimize overdiuresis. Blood sugars still with elevations - Increase Lantus to 38 units at HS. 04/13/17 Continue with levofloxacin and cefepime for antimicrobial coverage - ID recommending an approximate 10 day course. Diflucan 200mg IV daily started 04/11/17. Vancomycin started on 04/12/17 secondary to temp elevations. Continue mechanical ventilation for respiratory support. Increasing FIO2 - needing 100%. Sputum culture ordered by Dr Pineda. Solu-Medrol at 40mg IV q 12 hours. Continue neb treatments and pulmonary toilet. Nutritional support with DH tube feeding. Creatinine did decrease to 0.8. With increasing oxygen needs and increased intake as compared to output past 2 days will give 20mg IV Lasix. Blood sugars still with elevations - Increase Lantus to 42 units at HS. 04/14/17 Continue with levofloxacin and cefepime for antimicrobial coverage Diflucan 200mg IV daily started 04/11/17. Vancomycin started on 04/12/17 secondary to temp elevations. Continue mechanical ventilation for respiratory support. Sputum culture ordered 04/13 with results pending. Solu-Medrol at 40mg IV q 12 hours. Nutritional support with DH tube feeding. Potassium and sodium normal. Blood sugars still with elevations - Increase Lantus to 46 units at HS. Doppler legs pending - ? DVT as more pedal edema present.
--- NOTE | 2017-04-14 17:10 | Ultrasound Report ---
Indication: swelling and redness bilateral lower extremities PROCEDURE: US venous doppler LE BI: Encounter: Initial Comparison: None Technique: Color Doppler duplex and grayscale sonographic imaging of both lower extremities was performed. Findings: There is no evidence for acute deep venous thrombosis in either thigh. Specifically, serial graded compression was performed from the inguinal ligament to the popliteal bifurcation, bilaterally, demonstrating appropriate compressibility of the deep venous system. In addition, color and pulsed Doppler demonstrate appropriate spontaneous flow, variation with respiration, and augmentation with calf compression. At the ankle, normal flow is identified in the posterior tibial veins; these vessels are also normal in caliber. Impression: No evidence of acute DVT in either lower limb. There is a preliminary report by [facility]. .
[2017-04-14] MEDS ORDERED: INSULIN GLARGINE 100unit/ml INJECTION SQ SCH (21:00)
[2017-04-15] MEDS: INSULIN ASPART 100unit/ml INJECTION SQ SCH ×4 (00:20→17:43)
[2017-04-15] MEDS: INSULIN ASPART 100unit/ml INJECTION SQ PRN ×4 (00:21→17:43)
[2017-04-15] MEDS: ALBUTEROL/IPRATROPIUM 2.5mg-0.5mg/3ml NEB AEROSOL SCH ×7 (02:02→23:29)
[2017-04-15] MEDS: GUAIFENESIN 200mg/10ml ORAL LIQUID PO SCH ×4 (03:11→20:07)
[2017-04-15] MEDS: METOCLOPRAMIDE 10mg/2ml INJECTION IVP SCH ×4 (03:11→20:07)
[2017-04-15] MEDS: CEFEPIME 2 GM in NS 100 ML IV SCH ×3 (03:11→19:56)
[2017-04-15] MEDS: SALINE FLUSH 10ml SYRINGE IV PRN ×2 (03:12→20:06)
[2017-04-15] MEDS: RTU SALINE IV PRN ×5 (03:30→19:57)
[2017-04-15] MEDS: MIDAZOLAM IV PRN ×5 (03:30→19:57)
[2017-04-15] MEDS: SODIUM CL 3% INHAL.SOLN 15ml NEB AEROSOL SCH ×3 (04:06→21:50)
[2017-04-15] MEDS: FentaNYL 1,000 MCG in NS 80 ML IV PRN ×3 (04:16→21:23)
[2017-04-15] MEDS: ENOXAPARIN 40 MG/0.4 ML INJECTION SQ SCH (08:31)
[2017-04-15] MEDS: FUROSEMIDE 20 MG/2 ML INJECTION IVP SCH ×2 (08:31→20:08)
--- NOTE | 2017-04-15 08:37 | XRay Report ---
Indication: f/u PROCEDURE: XR chest 1V: Encounter: Initial Comparison: April 13, 2017 Findings: Motion artifact limits the exam. Support devices are grossly stable. Aeration of the lungs appears slightly improved. No obvious new infiltrates. Small effusions. No gross pneumothorax. Cardiomediastinal contours are stable. Impression: Limited exam due to motion with slightly improvement in appearance of the lungs. .
[2017-04-15] MEDS: NYSTATIN 500,000 units/5 ml ORAL LIQUID PO SCH ×4 (08:44→20:07)
[2017-04-15] MEDS: CHLORHEXIDINE 0.12% ORAL RINSE PO SCH ×2 (08:45→20:09)
--- NOTE | 2017-04-15 08:49 | XRay Report ---
Indication: f/u PROCEDURE: XR chest 1V: Encounter: Initial Comparison: April 14, 2017 Findings: Support devices are unchanged. No pneumothorax. Small effusions. Aeration of the right lung has improved with persistent perihilar and infrahilar airspace consolidation on the left. No obvious new infiltrates. Heart size and mediastinal contours are grossly stable. Impression: Grossly stable left-sided infiltrates. .
[2017-04-15] MEDS: METHYLPREDNISOLONE SOD SUCC 40mg/ml INJECTION IVP SCH ×2 (08:51→20:08)
[2017-04-15] MEDS: PANTOPRAZOLE 40 MG INJECTION IVP SCH ×2 (08:51→20:07)
[2017-04-15] MEDS: BUDESONIDE INH.SOLN 0.5mg/2ml NEB AEROSOL SCH ×2 (08:59→19:42)
--- NOTE | 2017-04-15 09:30 | Pulmonology Progress Note ---
<NormaLuisa D - Last Filed: 04/15/17 09:26> Subjective Principal diagnosis: bradycardia Interval history: Pt currently sedated on the vent 60%, peep 12, O2 sats 93%. No issues per staff , does respond at times. Exam Vital signs: Temperature 99.6 F 04/15/17 04:00 Pulse Rate 81 04/15/17 06:00 Respiratory Rate 23 04/15/17 06:00 Blood Pressure 126/62 04/15/17 06:00 Pulse Oximetry 92 04/15/17 06:00 - Constitutional no acute distress, morbidly obese - Routine HEENT Exam Head: Present: normocephalic, atraumatic Eye: Present: PERRL - Routine Neck Exam Present: supple, full ROM, trachea midline - Routine Respiratory Exam Present: decreased breath sounds - Routine Cardiovascular Exam Present: RRR, S1, S2, no murmur - Routine Abdominal Exam Present: soft, normoactive bowel sounds - Routine Extremities Exam Present: edema, full ROM Comments: ROM passive - Routine Skin Exam Present: intact, dry - Routine Neurological Exam Present: altered mental status sedated on vent - Routine Psychiatric Exam Present: unable to assess - Urinary Catheter Management Urethral Cath placed during this visit: yes Reason for continuing: Accurate I&O/Aggressive Diuresis Insertion date: 04/02/17 Insertion time: 22:20 Assessment and Plan - Assessment and Plan Acute Hypoxic hypercapnic Respiratory Failure CAP Pneumonia Sepsis/ARDS Likely COPD Likely GLADYS - will need OP PSG Elevated LFT's HyperKalemia Fluid overload Plan: Pt currently on vent settings f22, Vt 500, peep 12, 60%, sats 93. CXR appears to have slight increase of congestion, cont cardiomegaly. On BT's with pulmicort BID, a/a q4hr and 3% q 6, minimal sputum through ETT mainly with nasal and oral secretions. Currently on lasix 20 daily, I/O + for past 3 days, may benefit from lasix BID. BLE doppler neg, still with edema BLE edema. On levaquin, cefepime, vanco and diflucan, temp 100.9 this am, WBC improving 13.5> 12.2, sputum NTD from 04/13. Cont to victor m TF, Liver enzymes improving, Na normal and K+ 5 today. Pt still very ill, cont to follow closely. - Time Spent With Patient Total time spent is greater than 50% in coordination of care (as documented) at patient's floor/unit and/or counseling patient: 25 - 35 minutes <Artur Pineda - Last Filed: 04/15/17 12:11> Exam Vital signs: Temperature 100.9 F H 04/15/17 10:00 Pulse Rate 68 04/15/17 10:43 Respiratory Rate 20 04/15/17 10:43 Blood Pressure 131/70 04/15/17 10:00 Pulse Oximetry 92 04/15/17 11:16 - Urinary Catheter Management Urethral Cath placed during this visit: no Assessment and Plan (1) Acute respiratory failure with hypoxia Status: Acute Assessment and plan: decrease Fio2 to 55%. IF he tolerates, we will decrease peep to 10. Seems to be improving. New opacities left lung on today's CXR. Check procalcitonin Current Visit: Yes (2) ARDS (adult respiratory distress syndrome) Status: Acute Current Visit: Yes (3) Community acquired pneumonia Status: Acute Current Visit: No - Time Spent With Patient Total time spent is greater than 50% in coordination of care (as documented) at patient's floor/unit and/or counseling patient:
[2017-04-15] MEDS: ACETAMINOPHEN 160mg/5ml ORAL LIQUID PO PRN (09:42)
[2017-04-15] MEDS: TERFINAFINE 1% CREAM 12 G TUBE TOP SCH ×2 (09:43→20:09)
[2017-04-15] MEDS: LEVOFLOXACIN PB 750 MG/150 ML BAG IV SCH (11:13)
--- NOTE | 2017-04-15 12:43 | Cardiology Progress Note ---
<Vidhya Galvez - Last Filed: 04/16/17 10:49> Subjective Principal diagnosis: bradycardia Interval history: Gianni is seen in follow up for bradycardia. He remains sedated on the ventilator. His family is at the bedside. Exam Vital signs: Temperature 100.9 F H 04/15/17 10:00 Pulse Rate 68 04/15/17 10:43 Respiratory Rate 20 04/15/17 10:43 Blood Pressure 131/70 04/15/17 10:00 Pulse Oximetry 92 04/15/17 11:16 - Constitutional no acute distress, morbidly obese - Routine HEENT Exam Head: Present: normocephalic - Routine Neck Exam Absent: carotid bruit - Routine Chest/Breast/Axilla Exam Chest wall: Absent: tenderness - Routine Respiratory Exam Present: decreased breath sounds. Absent: rales, wheezes - Routine Cardiovascular Exam Present: RRR, no murmur - Routine Abdominal Exam Present: soft - Routine Extremities Exam Present: edema - Routine Skin Exam Present: intact, dry, warm - Routine Psychiatric Exam Present: unable to assess - Additional findings Additional findings: Acetaminophen (Tylenol Liquid) 640 mg PO Q5H PRN PRN Reason: Discomfort Last Admin: 04/13/17 18:02 Dose: 640 mg Albuterol/Ipratropium (Duoneb) 3 ml AEROSOL Q2HR PRN Last Admin: 04/14/17 22:10 Dose: 3 ml Albuterol/Ipratropium (Duoneb) 3 ml AEROSOL Q4HR [facility] Last Admin: 04/15/17 08:59 Dose: 3 ml Artificial Tears (Refresh Classic) 1 drop EACH EYE PRN PRN Last Admin: 04/14/17 08:21 Dose: 1 drop Bisacodyl (Dulcolax) 10 mg RECTALLY DAILY PRN PRN Reason: Constipation Budesonide (Pulmicort Inhalation) 0.5 mg AEROSOL RTBID [facility] Last Admin: 04/15/17 08:59 Dose: 0.5 mg Chlorhexidine Gluconate (Peridex) 15 ml PO BID [facility] Last Admin: 04/15/17 08:45 Dose: 15 ml Dextrose (D50%W) 20 ml IVP PRN PRN PRN Reason: Hypoglycemia Enoxaparin Sodium (Lovenox) 40 mg SQ DAILY [facility] Last Admin: 04/15/17 08:31 Dose: 40 mg Furosemide (Lasix) 20 mg IVP DAILY [facility] Last Admin: 04/15/17 08:31 Dose: 20 mg Guaifenesin (Robitussin Liq) 400 mg PO Q6HR [facility] Last Admin: 04/15/17 08:57 Dose: 400 mg Fentanyl 1,000 mcg/ Sodium (Chloride) 100 mls @ 0 mls/hr IV .Q0M PRN; Protocol ; Per Protocol PRN Reason: Sedation Last Admin: 04/15/17 09:38 Dose: 19 mls/hr Levofloxacin/Dextrose (Levaquin Premix) 750 mg in 150 mls @ 100 mls/hr IV Q24H [facility] Last Admin: 04/15/17 11:13 Dose: 100 mls/hr Midazolam HCl 100 mg/ Sodium (Chloride) 100 mls @ 0 mls/hr IV .Q0M PRN; Protocol; Per Protocol PRN Reason: VENT SEDATION Last Admin: 04/15/17 11:41 Dose: 14 mls/hr Cefepime HCl 2 gm/ Sodium (Chloride) 100 mls @ 200 mls/hr IV Q8H [facility] Last Infusion: 04/15/17 04:00 Dose: Infused Fluconazole (Diflucan Premix) 200 mg in 100 mls @ 100 mls/hr IV Q24H [facility] Last Infusion: 04/14/17 14:50 Dose: Infused Vancomycin HCl 2,000 mg/ (Sodium Chloride) 500 mls @ 250 mls/hr IV Q8H [facility] Last Admin: 04/15/17 07:45 Dose: 250 mls/hr Insulin Aspart (Novolog) 3 - 12 unit SQ SS PRN; Protocol PRN Reason: Hyperglycemia Last Admin: 04/15/17 06:11 Dose: 10 unit Insulin Aspart (Novolog) 8 unit SQ 0001,0600,1200,1800 [facility] Last Admin: 04/15/17 06:11 Dose: 8 unit Insulin Glargine (Lantus) 46 unit SQ HS [facility] Last Admin: 04/14/17 20:06 Dose: 46 unit Lorazepam (Ativan Inj) 2 mg IVP Q1H PRN PRN Reason: Anxiety/Restlessness Last Admin: 04/11/17 20:35 Dose: 1 mg Magnesium Hydroxide (Mom) 30 ml PO DAILY PRN PRN Reason: Constipation Last Admin: 04/14/17 20:07 Dose: 30 ml Menthol (Ricola Sf) 1 lozenge MM PRN PRN PRN Reason: Cough Methylprednisolone Sodium Succinate (Solu-Medrol) 40 mg IVP Q12HR [facility] Last Admin: 04/15/17 08:51 Dose: 40 mg Metoclopramide HCl (Reglan) 5 mg IVP Q6HR [facility] Last Admin: 04/15/17 08:51 Dose: 5 mg Nystatin (Mycostatin) 5 ml PO QID [facility] Last Admin: 04/15/17 08:44 Dose: 5 ml Pantoprazole Sodium (Protonix Iv) 40 mg IVP BID [facility] Last Admin: 04/15/17 08:51 Dose: 40 mg Sodium Chloride (Iv Flush) 10 - 80 ml IV PRN PRN PRN Reason: Flushing Last Admin: 04/15/17 03:12 Dose: 30 ml Sodium Chloride (Sodium Chloride 3% Inhal) 3 ml AEROSOL Q12HR [facility] Terbinafine HCl (Lamisil At) 1 applic TOP BID [facility] Last Admin: 04/15/17 09:43 Dose: 1 applic - Urinary Catheter Management Urethral Cath placed during this visit: yes Insertion date: 04/02/17 Insertion time: 22:20 Results 04/16/17 04:54 04/16/17 04:54 Cardiac Enzymes 04/15/17 Range/Units 07:34 AST 20 (17-59) U/L CBC 04/15/17 Range/Units 07:34 WBC 12.2 H (4.5-11.0) T/MM3 RBC 4.21 L (4.50-5.90) M/MM3 Hgb 13.0 L (13.5-17.5) GM/DL Hct 42.6 (41-53) % Plt Count 205 (130-400) T/MM3 Neut # (Auto) 9.1 H (1.8-7.7) T/MM3 Lymph # (Auto) 2.0 (1-4.8) T/MM3 Dickson # (Auto) 0.6 (0-0.8) T/MM3 Eos # (Auto) 0.1 (0-0.5) T/MM3 Baso # (Auto) 0.1 (0-0.2) T/MM3 Comprehensive Metabolic Panel 04/15/17 Range/Units 07:34 Sodium 140 (134-144) MEQ/L Potassium 5.0 (3.6-5) MEQ/L Chloride 97 L (98-107) MEQ/L Carbon Dioxide 35 H (22-30) MEQ/L BUN 34.0 H (9-20) MG/DL Creatinine 0.7 L (0.8-1.5) MG/DL Glucose 342 H (75-110) MG/DL Calcium 9.1 (8.4-10.2) MG/DL AST 20 (17-59) U/L ALT 84 H (21-72) U/L Alkaline Phosphatase 52 (38-126) U/L Total Protein 6.7 (6.3-8.2) G/DL Albumin 3.4 L (3.5-5.0) G/DL Intake and Output 04/14/17 04/15/17 04/15/17 22:59 06:59 14:59 Intake Total 1784.567 / 1052.092 9410.366 / 1763.366 407.067 / 407.067 Output Total 1340 / 1340 1530 / 1530 1130 / 1130 Balance 444.567 / 444.567 233.366 / 233.366 -722.933 / -722.933 Intake: IV 844.567 / 844.567 823.366 / 823.366 132.067 / 132.067 Cefepime 2 gm In Ns 100 ml @ 100 / 100 100 / 100 200 mls/hr IV Q8H [facility] Rx#: [id number] FentaNYL 1,000 mcg In Ns 80 ml 100.000 / 100.000 132.933 / 132.933 67.067 / 67.067 @ 5 mls/hr IV .Q20H PRN Rx#: [id number] Midazolam 100 mg In RTU-Saline 144.567 / 144.567 90.433 / 90.433 65 / 65 0 ml @ Per Protocol IV .Q0M PRN Rx#:[id number] Vancomycin 2,000 mg In NS 500ml 500.000 / 500.000 500.000 / 500.000 500 ml @ 250 mls/hr IV Q8H [facility] Rx#:[id number] Tube Feeding 440 / 440 440 / 440 275 / 275 Left Nare 440 / 440 440 / 440 275 / 275 Intake, Gastric Tube Irrigant 500 / 500 500 / 500 Amount Oral 500 / 500 500 / 500 Output: Urine Amount (Catheter) 1340 / 1340 1530 / 1530 1130 / 1130 Other: Urine Appearance Sediment Clear Clear Urine Color Yellow Pale Yellow Yellow Weight 303 lb 5.697 oz Patient Weight 04/16/17 06:59 Weight 303 lb 5.697 oz Laboratory Results - last 24 hr 04/14/17 04/14/17 04/15/17 13:53 18:17 00:15 WBC RBC Hgb Hct MCV MCH MCHC RDW Std Deviation Plt Count MPV Immature Gran % (Auto) Neut % (Auto) Lymph % (Auto) Dickson % (Auto) Eos % (Auto) Baso % (Auto) Neut # (Auto) Lymph # (Auto) Dickson # (Auto) Eos # (Auto) Baso # (Auto) Abs Immat Gran (auto) ABG pH 7.370 ABG pCO2 67 H* ABG pO2 79 L ABG HCO3 39 H ABG Total CO2 40.8 H ABG O2 Saturation 95.0 ABG Base Excess 10.9 H O2 Delivery Method Vent, adult % FiO2 % 65 Turbidity Sodium Potassium Chloride Carbon Dioxide Anion Gap BUN Creatinine GFR Calculation BUN/Creatinine Ratio Glucose Glucometer 310 270 Calculated Osmolality Calcium Total Bilirubin Icterus Index AST ALT Alkaline Phosphatase Total Protein Albumin Globulin Albumin/Globulin Ratio Procalcitonin Specimen Hemolysis Vancomycin Trough 04/15/17 04/15/17 04/15/17 06:04 07:34 07:34 WBC 12.2 H RBC 4.21 L Hgb 13.0 L Hct 42.6 MCV 101.2 H MCH 30.9 MCHC 30.5 L RDW Std Deviation 50.9 H Plt Count 205 MPV 11.8 Immature Gran % (Auto) 2.8 H Neut % (Auto) 75.0 H Lymph % (Auto) 16.0 L Dickson % (Auto) 5.2 Eos % (Auto) 0.4 Baso % (Auto) 0.6 Neut # (Auto) 9.1 H Lymph # (Auto) 2.0 Dickson # (Auto) 0.6 Eos # (Auto) 0.1 Baso # (Auto) 0.1 Abs Immat Gran (auto) 0.34 H ABG pH ABG pCO2 ABG pO2 ABG HCO3 ABG Total CO2 ABG O2 Saturation ABG Base Excess O2 Delivery Method FiO2 % Turbidity Sodium Potassium Chloride Carbon Dioxide Anion Gap BUN Creatinine GFR Calculation BUN/Creatinine Ratio Glucose Glucometer 331 Calculated Osmolality Calcium Total Bilirubin Icterus Index AST ALT Alkaline Phosphatase Total Protein Albumin Globulin Albumin/Globulin Ratio Procalcitonin Specimen Hemolysis Vancomycin Trough 12.0 L 04/15/17 04/15/17 04/15/17 07:34 07:34 12:10 WBC RBC Hgb Hct MCV MCH MCHC RDW Std Deviation Plt Count MPV Immature Gran % (Auto) Neut % (Auto) Lymph % (Auto) Dickson % (Auto) Eos % (Auto) Baso % (Auto) Neut # (Auto) Lymph # (Auto) Dickson # (Auto) Eos # (Auto) Baso # (Auto) Abs Immat Gran (auto) ABG pH ABG pCO2 ABG pO2 ABG HCO3 ABG Total CO2 ABG O2 Saturation ABG Base Excess O2 Delivery Method FiO2 % Turbidity < 20 Sodium 140 Potassium 5.0 Chloride 97 L Carbon Dioxide 35 H Anion Gap 8 BUN 34.0 H Creatinine 0.7 L GFR Calculation 125 BUN/Creatinine Ratio 49 H Glucose 342 H Glucometer 308 Calculated Osmolality 291 H Calcium 9.1 Total Bilirubin 0.30 Icterus Index < 2 AST 20 ALT 84 H Alkaline Phosphatase 52 Total Protein 6.7 Albumin 3.4 L Globulin 3.3 Albumin/Globulin Ratio 1.0 L Procalcitonin 0.14 Specimen Hemolysis < 15 Vancomycin Trough - Imaging and Cardiology Imaging & Cardiology Narrative: Date of Exam: 04/15/17 Ordering Provider: Luisa Green APRN Type of Exam(s): XR chest 1V Reason for Exam(s): f/u Indication: f/u PROCEDURE: XR chest 1V: Encounter: Initial Comparison: April 14, 2017 Findings: Support devices are unchanged. No pneumothorax. Small effusions. Aeration of the right lung has improved with persistent perihilar and infrahilar airspace consolidation on the left. No obvious new infiltrates. Heart size and mediastinal contours are grossly stable. Impression: Grossly stable left-sided infiltrates. 04/15/17 12:40 Assessment and Plan - Assessment and Plan (1) Community acquired pneumonia Current visit: No Status: Acute (2) Acute respiratory failure with hypoxia Current visit: Yes Status: Acute (3) Bradycardia Current visit: Yes Status: Acute - Assessment and Plan 04/06/17 Possibly related to anesthesia Or vagal with positioning for chest x-ray - NSR now, EKG obtained is WNL - Echo reviewed remotely by . He reports: EF 65%, Mild TR, Mild MR, PAP 42, trace PI, essentially the same as on 04/03/17. - Obtain TSH with reflex T4. K+ 4.6, Mag 2.6 today - Continue to monitor cardiac telemetry 04/08/17 No further bradycardia or pauses seen on telemetry - Will continue to monitor telemetry 04/09/2017 Bradycardia: On 04/06/2017 he went bradycardic. Likely due to vagal response with repositioning. 04/06/2017 ECG: NSR. Echo: EF 65%, mild MR/TR, PAP 42 K+, Mag and TSH wnl. Tele: SR - no further bradycardia or pauses seen on telemetry. Respiratory failure/ARDS/pneumonia On vent - FIO2 80%, sedated on versed and fentanyl. Receiving Lasix 20mg IV BID per pulm for large U/O. 04/10/2017 Bradycardia - no further bradycardia or pauses Respiratory failure/ARDS/pneumonia - On vent 50%. Sedated on versed and fentanyl - receiving lasix 20mg IV BID per pulm. Fluid overload - EF 65%. mild PHTN, PAP 42. requiring vent support. - 04/09 I/O: 2391/4989 (-1323). Wt down 23 kg since admit. k+ and Cr wnl. 04/09 CXR: atelectasis and effusion. . - cont lasix per pulm. 04/15/17 Remains intubated - Slight ST elevation noted on Telemetry - EKG now - Check troponin Thank you for allowing us to participate in the care of this patient, we will follow along with you. Hospital Course Summary Disclaimer: The visit summary below is not to be considered part of the above Progress Note. Hospital Course: Assessment Respiratory insufficiency with hypoxia Sepsis secondary to pneumonia Manifestations: Tachycardia, tachypnea, leukocytosis Community-acquired pneumonia Anasarca Morbid obesity-BMI 42.0 Hyperglycemia-POA Tinea corporis Tobacco dependence 04/02/17 Hospital admission Admit to inpatient status under the care of the hospitalist service, Dr. Lewis attending. It is expected that his stay will exceed 2 overnights given his sepsis secondary to pneumonia and overall condition. SCDs and Lovenox for DVT prophylaxis Urinalysis for laboratory completeness. Repeat CBC and BMP in am to follow leukocytosis, renal function and electrolytes. Schedule echocardiogram to evaluate cardiac structure and function given his anasarca and dyspnea. Oxygen, DuoNeb treatments, Acapella, and guaifenesin for respiratory symptoms. Continue Rocephin and Zithromax initiated and the emergency room. Blood cultures were drawn prior to antibiotic initiation. RT consult tobacco cessation. Terbinafine topically for his tinea corporis Patient wishes to be a full code. Case discussed with Dr. Lewis. Case management will need to assist in finding patient a PCP. 04/04/17 12:03 Plan The patient continues to require mechanical ventilation and is on 100% FiO2 regarding his ARDS and pneumonia. Continue ventilator support - Dr. Pineda is following. His help is greatly appreciated. Continue Levaquin initiated 04/03/2017 and Rocephin initiated 04/02/2017 Continue Solu-Medrol Discussed with Dr. Pineda, will change Lovenox to prophylactic dose. Venous Doppler of the legs were negative for DVT. No signs of right heart strain on echocardiogram. Advance tube feedings Nutren luminary 1.5 to goal of 70 ML's per hour. Start free water 400 ML's every 8 hours. DC IV fluids Vishal blood pressure off of IV fluids. May need to initiate antihypertensive Start Lantus 10 units subcutaneous daily. Increase to medium dose sliding scale insulin. Continue Lasix 40 mg IV every 12. Patient is diuresing well. Check CBC and renal panel tomorrow. Chest x-ray tomorrow. Assess with Dr. Pineda, the patient's significant other, and the patient's nurse. 04/05/17 09:31 Plan The patient continues to require mechanical ventilation and is now on 95% FiO2 regarding his ARDS and pneumonia. Continue ventilator support per Dr. Pineda Continue Levaquin initiated 04/03/2017 and Rocephin initiated 04/02/2017. Continue Solu-Medrol Regarding hyperkalemia, will try to change to feeding to a renal tube feeds. Check ABG. (7.32/79/103 on 95% FiO2) Recheck basic metabolic profile later today. May need to increase fluids followed by diuresis for hyperkalemia Increase Lantus to 20 units subcutaneous daily for hyperglycemia. Increase sliding scale insulin to high dose Start Reglan and Dulcolax suppositories to stimulate GI tract. Decrease tube feed rate to 50 ML's for now. Greater than 40 minutes critical care time. 04/07/2017 Plan The patient continues to require mechanical ventilation and FiO2 100% regarding his ARDS and pneumonia. The patient has tolerated discontinuation of propofol and initiation of Versed. The patient is tolerating his tube feedings. Will advance as tolerated. Will increase free water to 200 ML's every 4 hours and decrease Lasix to 20 mg IV every 12 regarding his elated sodium. Continue to monitor blood pressure closely. Continue Levaquin initiated 04/03/2017 and Rocephin initiated 04/02/2017. Continue Solu-Medrol Regarding hyperkalemia-is resolved. Continue renal tube feeds Continue Reglan and Dulcolax suppositories to stimulate GI tract. Greater than 45 minutes of critical care time spent seeing and evaluating the patient. The patient's brother was updated. 04/08/17 09:49 Plan Overall, the patient is stable. He is diuresing well. Weight is down approximately 22 kg over the past 1 week. He has been on the ventilator for one week now. FiO2 turned down to 95% this morning. Consulted Dr. Johnson regarding positive blood culture and antibiotic recommendations The patient continues to require mechanical ventilation regarding his ARDS and pneumonia. FiO2 down to 95% this morning The patient is tolerating his tube feedings. Will advance as tolerated to goal. Will increase free water to 250 ML's every 4 hours. Continue Lasix 20 mg IV every 12. Continue to monitor blood pressure closely. Continue Levaquin initiated 04/03/2017 and Rocephin initiated 04/02/2017. Continue Solu-Medrol and breathing treatments Regarding hyperkalemia- Continue renal tube feeds Continue Reglan and Dulcolax suppositories to stimulate GI tract. Regarding possible mild upper GI bleed, will Gastric occult NG drainage. Hold Lovenox for now. Greater than 45 minutes of critical care time spent seeing and evaluating the patient. <Ebenezer Mauricio - Last Filed: 04/21/17 14:45> Exam Vital signs: Temperature 101.5 F H 04/21/17 04:00 Pulse Rate 91 01/08/18 13:52 Respiratory Rate 28 H 04/21/17 13:52 Blood Pressure 121/77 04/21/17 08:00 Pulse Oximetry 94 04/21/17 13:52 - Urinary Catheter Management Urethral Cath placed during this visit: no Results 04/21/17 04:19 04/21/17 04:19 Cardiac Enzymes 04/21/17 Range/Units 04:19 AST 50 (17-59) U/L CBC 04/21/17 Range/Units 04:19 WBC 17.4 H (4.5-11.0) T/MM3 RBC 4.52 (4.50-5.90) M/MM3 Hgb 14.1 (13.5-17.5) GM/DL Hct 44.8 (41-53) % Plt Count 152 (130-400) T/MM3 Neut # (Auto) Not performed Lymph # (Auto) Not performed Dickson # (Auto) Not performed Eos # (Auto) Not performed Baso # (Auto) Not performed Comprehensive Metabolic Panel 04/21/17 Range/Units 04:19 Sodium 140 (134-144) MEQ/L Potassium 4.2 (3.6-5) MEQ/L Chloride 101 (98-107) MEQ/L Carbon Dioxide 31 H (22-30) MEQ/L BUN 29.0 H (9-20) MG/DL Creatinine 0.6 L (0.8-1.5) MG/DL Glucose 181 H (75-110) MG/DL Calcium 8.7 (8.4-10.2) MG/DL AST 50 (17-59) U/L ALT 92 H (21-72) U/L Alkaline Phosphatase 54 (38-126) U/L Total Protein 7.0 (6.3-8.2) G/DL Albumin 3.5 (3.5-5.0) G/DL Intake and Output 04/20/17 04/21/17 04/21/17 22:59 06:59 14:59 Intake Total 1681.600 / 2684.090 8191.867 / 1801.867 778.883 / 778.883 Output Total 701 / 701 605 / 605 580 / 580 Balance 980.600 / 080.430 4378.867 / 1196.867 198.883 / 198.883 Intake: IV 1001.600 / 1001.600 941.867 / 941.867 168.883 / 168.883 Dexmedetomidine 1,000 mcg In NS 239.850 / 239.850 219.700 / 219.700 141.05 / 141.05 250ml 250 ml @ 0.2 MCG/KG/HR 7 .47 mls/hr IV .Q24H PRN Rx#: [id number] FentaNYL 1,000 mcg In Ns 80 ml 100.0 / 100.0 77.167 / 77.167 22.833 / 22.833 @ Per Protocol IV .Q0M PRN Rx#: [id number] Meropenem 1 gm In Ns 100 ml @ 100 / 100 100 / 100 200 mls/hr IV Q8H [facility] Rx#: [id number] Midazolam 100 mg In RTU-Saline 61.750 / 61.750 45 / 45 5 / 5 0 ml @ Per Protocol IV .Q0M PRN Rx#:[id number] Vancomycin 2,500 mg In NS 500ml 500 / 500 500 / 500 500 ml @ 250 mls/hr IV Q8H [facility] Rx#:[id number] Tube Feeding 430 / 430 360 / 360 300 / 300 Left Nare 430 / 430 360 / 360 300 / 300 Intake, Gastric Tube Irrigant 250 / 250 500 / 500 310 / 310 Amount Left Nare 250 / 250 500 / 500 310 / 310 Output: Urine Amount (Catheter) 701 / 701 605 / 605 580 / 580 Other: Urine Appearance Clear Clear Sediment Urine Color Light Lindsay Light Lindsay Yellow Assessment and Plan - Assessment and Plan (1) Community acquired pneumonia Current visit: No Status: Acute (2) Acute respiratory failure with hypoxia Current visit: Yes Status: Acute (3) Bradycardia Current visit: Yes Status: Acute - Attestation Attestation Narrative: 04/21/17 14:45 Recommendation After examining the patient I agree with the above assessment. I am involved in the formulation of the patient's plan of care. Hospital Course Summary Disclaimer: The visit summary below is not to be considered part of the above Progress Note.
[2017-04-15] MEDS: FLUCONAZOLE PB 200 MG/100 ML BAG IV SCH (13:18)
--- NOTE | 2017-04-15 13:23 | Pharmacy Consult-Antibiotics ---
Pharmacy Consult-Vancomycin - Laboratory Information WBC 12.2 T/MM3 (4.5-11.0) H 04/15/17 07:34 BUN 34.0 MG/DL (9-20) H 04/15/17 07:34 Creatinine 0.7 MG/DL (0.8-1.5) L 04/15/17 07:34 Procalcitonin 0.14 NG/ML 04/15/17 07:34 Vancomycin Trough 12.0 UG/ML (15-20) L 04/15/17 07:34 - Consult Information VANCOMYCIN CONSULT: 42 YR OLD MALE PT ON VENTILATOR 5'11" 137 KG. SR CR = 0.7 Pt on Vancomycin 2000 mg IV q8hrs. Vancomycin Trough = 12.0 mcg/ml. Today's SCr = 0.7 mg/dl. Will increase dose to Vancomycin 2500 mg IV q 8 hrs. Per calculations the next trough should be around 16. Will continue to monitor trough and patient's renal function and make adjustments accordingly. Thank you. Nia Alicia, PharmD
--- NOTE | 2017-04-15 14:54 | Progress Note ---
- Date 04/15/17 Subjective: F/U: Acute respiratory failure, ARDS, Pneumonia Sedated on vent. FIO2 needs decreasing-weaned down to 55%. Secretions decreasing , more thin. BP and HR stable. LEF trending down. Blood sugar still showing elevation. Objective Vital signs: Temperature 99.7 F 04/15/17 14:00 Pulse Rate 73 04/15/17 14:00 Respiratory Rate 28 H 04/15/17 14:00 Blood Pressure 128/63 04/15/17 14:00 Pulse Oximetry 92 04/15/17 14:00 Rhythm: Normal Sinus Rhythm Height/Weight/BMI: Height 1.8 m Weight 137.6 kg Body Mass Index 51.2 - Constitutional Present: well nourished, well developed, morbidly obese - Routine HEENT Exam Head: Present: normocephalic, atraumatic - Routine Respiratory Exam Present: patient mechanically ventilated, decreased breath sounds - Routine Cardiovascular Exam Present: RRR, no murmur - Routine Abdominal Exam Present: soft, non distended, non tender. Absent: normoactive bowel sounds ( decreased ) - Routine Exam Comments: Walker present - Routine Extremities Exam Present: edema (+1 BLE), pulses intact (Stong radial and DP pulses bilaterally) . Absent: cyanosis, clubbing - Routine Musculoskeletal Exam Musculoskeletal: Present: no clubbing or cyanosis - Routine Skin Exam Present: warm (moist ) - Routine Neurological Exam Sedated - Routine Psychiatric Exam Comments: Sedated Results - Labs CBC & Chem 7: 04/15/17 07:34 04/15/17 07:34 Microbiology Results: Microbiology 04/13/17 14:50 Sputum, Suctioned Gram Stain - Final 04/13/17 14:50 Sputum, Suctioned Sputum Culture - Final Normal Respiratory Jesus Present 04/09/17 10:00 Port/Picc Blood Culture - Final No Growth After 5 Days 04/09/17 09:24 Port/Picc Blood Culture - Final No Growth After 5 Days 04/06/17 10:37 Port/Picc Gram Stain - Final 04/06/17 10:37 Port/Picc Blood Culture - Final Corynebacterium species 04/06/17 11:03 Port/Picc Blood Culture - Final No Growth After 5 Days 04/07/17 08:43 Nasopahrynx Gram Stain - Final 04/07/17 08:43 Nasopahrynx Nasopharyngeal Culture - Final Normal Respiratory Jesus 04/03/17 11:30 Sputum, Suctioned Gram Stain - Final 04/03/17 11:30 Sputum, Suctioned Sputum Culture - Final Normal Respiratory Jesus 04/03/17 10:38 Urine Legionella Urinary Antigen - Final 04/03/17 10:38 Urine Streptococcus pneumoniae Antigen (M - Final - ABG Interpretation ABG results: 04/14/17 13:53 ABG pH 7.370 ABG pCO2 67 H* ABG pO2 79 L ABG HCO3 39 H ABG Total CO2 40.8 H ABG O2 Saturation 95.0 ABG Base Excess 10.9 H Assessment and Plan (1) Community acquired pneumonia Current visit: No Status: Acute Assessment and Plan: Assessment Acute hypoxic and hypercarbic respiratory failure-requiring mechanical ventilation. Intubated on 04/02/2017. Versed and fentanyl for sedation ARDS Community - acquired pneumonia-severe, requiring intubation. Levaquin initiated 04/03/2017 and Rocephin initiated 04/02/2017. Changed Rocephin to cefepime on . Sepsis secondary to pneumonia on admission Manifestations: Tachycardia, tachypnea, leukocytosis. Lactate normal on admission CODE BLUE/bradycardia versus short lasting asystole on 04/06/2017-patient received chest compressions 3 - EKG and troponin post event were normal Elevated d-dimer 555 - Lovenox therapeutic dose initiated 04/06/2017. Blood culture one of 2 on 04/06/2027 positive for corynebacterium -discussed with Dr. Johnson. This is most likely contaminant. Anasarca - improving; significant decrease of fluid since admit Echocardiogram revealed normal EF, left ventricular hypertrophy, PA pressure 41 with mild pulmonary hypertension (echo 04/06/2017 unchanged on recheck)-BNP has been normal. Diabetes Mellitus Type 2 - A1C 7.1 on admission (new diagnosis)-on Lantus, scheduled NovoLog and sliding scale insulin Possible COPD Probable obstructive sleep apnea Chronic back pain with high-dose ibuprofen and Tylenol use prior to admission Tinea corporis/ringworm? Tobacco dependence Hyperkalemia with potassium up to 5.5 of undetermined etiology (Not POA). Possible sinusitis right nears with copious thick nasal secretions - C/S showing normal jesus Mild hypernatremia (Not POA) Morbid obesity-BMI 42.0 Plan Continue with levofloxacin and cefepime for antimicrobial coverage - ID recommending an approximate 10 day course. Diflucan 200mg IV daily started 04/11/17. Vancomycin started on 04/12/17 secondary to temp elevations. Continue mechanical ventilation for respiratory support. FIO2 needs decreasing - pulm weaning. Secretions decreasing. Sputum culture ordered 04/13 with normal respiratory jesus. Solu-Medrol at 40mg IV q 12 hours. Continue neb treatments and pulmonary toilet. Nutritional support with DH tube feeding. Potassium and sodium normal. Blood sugars still with elevations - Increase Lantus to 50 units at HS. Increase Lasix back to 20mg IV BID due to increasing edema to legs. Doppler legs from 04/14/17 showing no DVT - continue Lovenox 40mg SQ daily and SCD. Recheck CMP, CBC, and CXR in am secondary to pneumonia, respiratory failure, and medication use. Will check Mg and Phos in am due to DH and Lasix use. Condition critical, showing improvement from the weekend. Continued CCU care needed secondary to respiratory failure and mechanical ventilation. Case discussed with CCU nursing and family. Time spent with patient care 25 minutes. DVT Prophylaxis: SCD's, Lovenox Resuscitation Status: Full Code - Time spent with patient Time with patient PN: 25 minutes - Physician Narrative Physician: Wally Lewis MD Narrative: Date: 04/15/17 Time: 0771 Hospital Course Summary Disclaimer: The visit summary below is not to be considered part of the above Progress Note. Hospital Course: Assessment Respiratory insufficiency with hypoxia Sepsis secondary to pneumonia Manifestations: Tachycardia, tachypnea, leukocytosis Community-acquired pneumonia Anasarca Morbid obesity-BMI 42.0 Hyperglycemia-POA Tinea corporis Tobacco dependence 04/02/17 Hospital admission Admit to inpatient status under the care of the hospitalist service, Dr. Lewis attending. It is expected that his stay will exceed 2 overnights given his sepsis secondary to pneumonia and overall condition. SCDs and Lovenox for DVT prophylaxis Urinalysis for laboratory completeness. Repeat CBC and BMP in am to follow leukocytosis, renal function and electrolytes. Schedule echocardiogram to evaluate cardiac structure and function given his anasarca and dyspnea. Oxygen, DuoNeb treatments, Acapella, and guaifenesin for respiratory symptoms. Continue Rocephin and Zithromax initiated and the emergency room. Blood cultures were drawn prior to antibiotic initiation. RT consult tobacco cessation. Terbinafine topically for his tinea corporis Patient wishes to be a full code. Case discussed with Dr. Lewis. Case management will need to assist in finding patient a PCP. 04/04/17 12:03 Plan The patient continues to require mechanical ventilation and is on 100% FiO2 regarding his ARDS and pneumonia. Continue ventilator support - Dr. Pineda is following. His help is greatly appreciated. Continue Levaquin initiated 04/03/2017 and Rocephin initiated 04/02/2017 Continue Solu-Medrol Discussed with Dr. Pineda, will change Lovenox to prophylactic dose. Venous Doppler of the legs were negative for DVT. No signs of right heart strain on echocardiogram. Advance tube feedings Nutren luminary 1.5 to goal of 70 ML's per hour. Start free water 400 ML's every 8 hours. DC IV fluids Vishal blood pressure off of IV fluids. May need to initiate antihypertensive Start Lantus 10 units subcutaneous daily. Increase to medium dose sliding scale insulin. Continue Lasix 40 mg IV every 12. Patient is diuresing well. Check CBC and renal panel tomorrow. Chest x-ray tomorrow. Assess with Dr. Pineda, the patient's significant other, and the patient's nurse. 04/05/17 09:31 Plan The patient continues to require mechanical ventilation and is now on 95% FiO2 regarding his ARDS and pneumonia. Continue ventilator support per Dr. Pineda Continue Levaquin initiated 04/03/2017 and Rocephin initiated 04/02/2017. Continue Solu-Medrol Regarding hyperkalemia, will try to change to feeding to a renal tube feeds. Check ABG. (7.32/79/103 on 95% FiO2) Recheck basic metabolic profile later today. May need to increase fluids followed by diuresis for hyperkalemia Increase Lantus to 20 units subcutaneous daily for hyperglycemia. Increase sliding scale insulin to high dose Start Reglan and Dulcolax suppositories to stimulate GI tract. Decrease tube feed rate to 50 ML's for now. Greater than 40 minutes critical care time. 04/07/2017 Plan The patient continues to require mechanical ventilation and FiO2 100% regarding his ARDS and pneumonia. The patient has tolerated discontinuation of propofol and initiation of Versed. The patient is tolerating his tube feedings. Will advance as tolerated. Will increase free water to 200 ML's every 4 hours and decrease Lasix to 20 mg IV every 12 regarding his elated sodium. Continue to monitor blood pressure closely. Continue Levaquin initiated 04/03/2017 and Rocephin initiated 04/02/2017. Continue Solu-Medrol Regarding hyperkalemia-is resolved. Continue renal tube feeds Continue Reglan and Dulcolax suppositories to stimulate GI tract. Greater than 45 minutes of critical care time spent seeing and evaluating the patient. The patient's brother was updated. 04/08/17 09:49 Plan Overall, the patient is stable. He is diuresing well. Weight is down approximately 22 kg over the past 1 week. He has been on the ventilator for one week now. FiO2 turned down to 95% this morning. Consulted Dr. Johnson regarding positive blood culture and antibiotic recommendations The patient continues to require mechanical ventilation regarding his ARDS and pneumonia. FiO2 down to 95% this morning The patient is tolerating his tube feedings. Will advance as tolerated to goal. Will increase free water to 250 ML's every 4 hours. Continue Lasix 20 mg IV every 12. Continue to monitor blood pressure closely. Continue Levaquin initiated 04/03/2017 and Rocephin initiated 04/02/2017. Continue Solu-Medrol and breathing treatments Regarding hyperkalemia- Continue renal tube feeds Continue Reglan and Dulcolax suppositories to stimulate GI tract. Regarding possible mild upper GI bleed, will Gastric occult NG drainage. Hold Lovenox for now. Greater than 45 minutes of critical care time spent seeing and evaluating the patient. 04/09/17 Overall, the patient is improving. FiO2 is now down to 70%. The patient appears to be nearly euvolemic at this time. We'll continue Lasix. Weight is down approximately 22 kg over the past [address] Johnson recommends approximately 10 days of broad-spectrum antibiotics for his pneumonia. She recommended discontinuation of vancomycin today with corynebacterium found in one of 2 blood cultures on April 06 most likely being a contaminant. Currently at goal rate on tube feedings. He is on a renal formulation because of hyperkalemia. May need to increase free water further if sodium does not improving. Continue Levaquin initiated 04/03/2017 and Rocephin initiated 04/02/2017. Rocephin discontinued on 04/06/2017 and cefepime started. Vancomycin started and discontinued on 04/09/2017 Continue Solu-Medrol and breathing treatments Add MiraLAX for constipation Continue Lovenox for DVT prophylaxis (gastric occult from NG drainage was negative) 04/10/17 Debbie Continue with levofloxacin and cefepime for antimicrobial coverage - ID recommending an approximate 10 day course. Will continue with Solu-Medrol at 40mg IV q 8 hours -started on 03/26/17. Potentially could start to decrease. Continue neb treatments and pulmonary toilet. Nutritional support with DH tube feeding. Potassium normal. LFT with gradual increase-potential fatty liver secondary to continuous TF. Continue Lasix. Weight is down approximately 22 kg over the past 1 week. Renal status stable. Blood sugars showing persistent elevation in the low to mid 200's. Will increase Lantus to 34 units at night. 04/11/17 Continue with levofloxacin and cefepime for antimicrobial coverage - ID recommending an approximate 10 day course. With increased temp, persistent leukocytosis, steroid and antibiotic use will start Diflucan 200mg IV daily. Continue mechanical ventilation for respiratory support. Pulm decreased Solu-Medrol to 40mg IV q 12 hours. Continue neb treatments and pulmonary toilet. Slowly able to wean down FIO2. Nutritional support with DH tube feeding. Continue Lasix 20 mg IV BID. Creatinine and BP stable. Potassium with increase to 5.4 this am. Blood sugars still with elevations - will continue current regimen, watching for decrease with decreased Solu-Medrol. 04/12/17 Continue with levofloxacin and cefepime for antimicrobial coverage - ID recommending an approximate 10 day course. Diflucan 200mg IV daily started 04/11/17. Continue mechanical ventilation for respiratory support - Solu-Medrol at 40mg IV q 12 hours. O2 needs increased today - likely mucous plugging. Creatinine with increase to 1.1. Edema much improved. Will decrease Lasix to 20mg daily to minimize overdiuresis. Blood sugars still with elevations - Increase Lantus to 38 units at HS. 04/13/17 Continue with levofloxacin and cefepime for antimicrobial coverage - ID recommending an approximate 10 day course. Diflucan 200mg IV daily started 04/11/17. Vancomycin started on 04/12/17 secondary to temp elevations. Continue mechanical ventilation for respiratory support. Increasing FIO2 - needing 100%. Sputum culture ordered by Dr Pineda. Solu-Medrol at 40mg IV q 12 hours. Continue neb treatments and pulmonary toilet. Nutritional support with DH tube feeding. Creatinine did decrease to 0.8. With increasing oxygen needs and increased intake as compared to output past 2 days will give 20mg IV Lasix. Blood sugars still with elevations - Increase Lantus to 42 units at HS. 04/14/17 Continue with levofloxacin and cefepime for antimicrobial coverage Diflucan 200mg IV daily started 04/11/17. Vancomycin started on 04/12/17 secondary to temp elevations. Continue mechanical ventilation for respiratory support. Sputum culture ordered 04/13 with results pending. Solu-Medrol at 40mg IV q 12 hours. Nutritional support with DH tube feeding. Potassium and sodium normal. Blood sugars still with elevations - Increase Lantus to 46 units at HS. Doppler legs pending - ? DVT as more pedal edema present. 04/15/17 Continue with levofloxacin and cefepime for antimicrobial coverage - ID recommending an approximate 10 day course. Diflucan 200mg IV daily started 04/11/17. Vancomycin started on 04/12/17 secondary to temp elevations. Continue mechanical ventilation for respiratory support. FIO2 needs decreasing - pulm weaning. Secretions decreasing. Sputum culture ordered 04/13 with normal respiratory jesus. Solu-Medrol at 40mg IV q 12 hours. Continue neb treatments and pulmonary toilet. Nutritional support with DH tube feeding. Potassium and sodium normal. Blood sugars still with elevations - Increase Lantus to 50 units at HS. Increase Lasix back to 20mg IV BID due to increasing edema to legs. Doppler legs from 04/14/17 showing no DVT - continue Lovenox 40mg SQ daily and SCD.
[2017-04-15] MEDS: VANCOMYCIN 2,500 MG in NS 500 ML IV SCH (15:51)
[2017-04-15] MEDS: NS FLUSH BAG 500ml IV PRN (20:00)
[2017-04-15] MEDS: INSULIN GLARGINE 100unit/ml INJECTION SQ SCH (20:08)
[2017-04-15] MEDS: REFRESH CLASSIC Eye Drops 0.4ml EACH EYE PRN (20:40)
[2017-04-16] MEDS: INSULIN ASPART 100unit/ml INJECTION SQ SCH ×5 (00:24→23:48)
[2017-04-16] MEDS: VANCOMYCIN 2,500 MG in NS 500 ML IV SCH ×2 (00:25→08:07)
[2017-04-16] MEDS: INSULIN ASPART 100unit/ml INJECTION SQ PRN ×6 (00:25→23:48)
[2017-04-16] MEDS ORDERED: ALTEPLASE (Cathflo*) 2mg INJECTION IV ONE (01:07)
[2017-04-16] MEDS: MIDAZOLAM IV PRN ×5 (02:47→21:55)
[2017-04-16] MEDS: RTU SALINE IV PRN ×5 (02:47→21:55)
[2017-04-16] MEDS: FentaNYL 1,000 MCG in NS 80 ML IV PRN ×4 (02:49→20:23)
[2017-04-16] MEDS: ALBUTEROL/IPRATROPIUM 2.5mg-0.5mg/3ml NEB AEROSOL SCH ×6 (03:32→23:00)
[2017-04-16] MEDS: CEFEPIME 2 GM in NS 100 ML IV SCH (03:43)
[2017-04-16] MEDS: GUAIFENESIN 200mg/10ml ORAL LIQUID PO SCH ×4 (03:43→20:52)
[2017-04-16] MEDS: SALINE FLUSH 10ml SYRINGE IV PRN (03:45)
[2017-04-16] MEDS: METOCLOPRAMIDE 10mg/2ml INJECTION IVP SCH ×3 (03:45→16:37)
[2017-04-16] MEDS: BISACODYL 10 MG SUPPOSITORY RECTALLY PRN (05:36)
[2017-04-16] MEDS: BUDESONIDE INH.SOLN 0.5mg/2ml NEB AEROSOL SCH ×2 (07:10→18:51)
[2017-04-16] MEDS: SODIUM CL 3% INHAL.SOLN 15ml NEB AEROSOL SCH ×2 (08:00→20:39)
[2017-04-16] MEDS: NYSTATIN 500,000 units/5 ml ORAL LIQUID PO SCH ×4 (08:08→20:52)
[2017-04-16] MEDS: CHLORHEXIDINE 0.12% ORAL RINSE PO SCH ×2 (08:08→20:50)
[2017-04-16] MEDS: TERFINAFINE 1% CREAM 12 G TUBE TOP SCH ×2 (08:18→20:53)
[2017-04-16] MEDS: FUROSEMIDE 20 MG/2 ML INJECTION IVP SCH ×2 (08:32→20:52)
[2017-04-16] MEDS: METHYLPREDNISOLONE SOD SUCC 40mg/ml INJECTION IVP SCH ×2 (08:32→20:55)
[2017-04-16] MEDS: ENOXAPARIN 40 MG/0.4 ML INJECTION SQ SCH (08:33)
[2017-04-16] MEDS: PANTOPRAZOLE 40 MG INJECTION IVP SCH ×2 (08:33→20:52)
--- NOTE | 2017-04-16 08:34 | ID Progress Note ---
Subjective Date: 04/16/17 Subjective: Mr. Zamora remains intubated. He has had some low-grade fevers 04/12, 04/13 and . His FiO2 is now down to 55%. He remains on steroids. Vancomycin and fluconazole were added to his antibiotics. Exam Vital Signs: Temperature 99.3 F 04/16/17 04:00 Pulse Rate 68 04/16/17 07:15 Respiratory Rate 22 04/16/17 08:00 Blood Pressure 122/61 04/16/17 07:00 Pulse Oximetry 94 04/16/17 08:00 Height/Weight/BMI: Height 1.8 m Weight 137.6 kg Body Mass Index 51.2 - Constitutional Present: obese - Routine HEENT Exam Head: Present: normocephalic, atraumatic Eye: Present: PERRL, conjunctivae pink. Absent: periorbital swelling ENT: Present: mucous membranes moist Comments: ETT in place - Routine Neck Exam Present: trachea midline. Absent: tenderness - Routine Respiratory Exam Present: patient mechanically ventilated, CTA bilaterally (slightly coarse breath sounds). Absent: accessory muscle use - Routine Cardiovascular Exam Present: RRR - Routine Abdominal Exam Present: soft, non distended, non tender - Routine Exam Comments: angeles catheter in place - Routine Extremities Exam Present: edema (trace to 1+ LEs). Absent: cyanosis, clubbing - Routine Skin Exam Present: erythema (diffusely over face/neck area). Absent: rash Comments: R IJ central line in place - Routine Neurological Exam Present: altered mental status (sedated) - Routine Psychiatric Exam Present: unable to assess Results - Labs CBC & Chem 7: 04/16/17 04:54 04/16/17 04:54 Labs: Laboratory Tests 04/06/17 04/09/17 04/11/17 03:52 09:24 05:01 Procalcitonin 0.40 0.22 0.12 04/15/17 07:34 Procalcitonin 0.14 Microbiology Results: Microbiology 04/13/17 14:50 Sputum, Suctioned Gram Stain - Final 04/13/17 14:50 Sputum, Suctioned Sputum Culture - Final Normal Respiratory Mayelin Present 04/09/17 10:00 Port/Picc Blood Culture - Final No Growth After 5 Days 04/09/17 09:24 Port/Picc Blood Culture - Final No Growth After 5 Days 04/06/17 10:37 Port/Picc Gram Stain - Final 04/06/17 10:37 Port/Picc Blood Culture - Final Corynebacterium species 04/06/17 11:03 Port/Picc Blood Culture - Final No Growth After 5 Days 04/07/17 08:43 Nasopahrynx Gram Stain - Final 04/07/17 08:43 Nasopahrynx Nasopharyngeal Culture - Final Normal Respiratory Mayelin 04/03/17 11:30 Sputum, Suctioned Gram Stain - Final 04/03/17 11:30 Sputum, Suctioned Sputum Culture - Final Normal Respiratory Mayelin 04/03/17 10:38 Urine Legionella Urinary Antigen - Final 04/03/17 10:38 Urine Streptococcus pneumoniae Antigen (M - Final - ABG Interpretation ABG results: 04/14/17 13:53 ABG pH 7.370 ABG pCO2 67 H* ABG pO2 79 L ABG HCO3 39 H ABG Total CO2 40.8 H ABG O2 Saturation 95.0 ABG Base Excess 10.9 H - Impressions CXRs reviewed. Still with some persistent L basilar infiltrate Impression: Sepsis, secondary to pulmonary source Acute hypoxic respiratory failure Bilateral community-acquired pneumonia ARDS on steroids S/p CODE BLUE/bradycardia versus short lasting asystole on 04/06/2017 1/2 blood cultures positive for Corynebacterium species, contaminant DM II, newly diagnosed Morbid obesity Probable obstructive sleep apnea Tobaccoism Tinea corporis Copious thick nasal secretions from R nare, culture NGTD PCN allergy per records Elevated D-dimer Recommendation: He's been on antibiotics for pneumonia since 04/03 (14 days). Sputum and blood cultures have not identified a pathogen, urine antigens have been negative. His procalcitonin is negative. I'd recommend stopping his antibiotics. Defer steroids to Pulmonary.
--- NOTE | 2017-04-16 09:09 | Pulmonology Progress Note ---
Subjective Principal diagnosis: bradycardia Interval history: Pt currently sedated on the vent with fent and versed. Has eyes open and nodding his head to some questions. Currently at 50%, peep 10 and tolerating well, sats 93%. No issues per staff noted, family at bedside. Exam Vital signs: Temperature 99.3 F 04/16/17 04:00 Pulse Rate 68 04/16/17 07:15 Respiratory Rate 22 04/16/17 08:00 Blood Pressure 122/61 04/16/17 07:00 Pulse Oximetry 94 04/16/17 08:00 - Constitutional no acute distress, morbidly obese - Routine HEENT Exam Head: Present: normocephalic, atraumatic Eye: Present: PERRL ENT: Present: mucous membranes moist - Routine Neck Exam Present: supple, full ROM, trachea midline - Routine Respiratory Exam Present: decreased breath sounds, wheezes Comments: faint wheezes - Routine Cardiovascular Exam Present: RRR, S1, S2, no murmur - Routine Abdominal Exam Present: soft, normoactive bowel sounds - Routine Extremities Exam Present: edema, full ROM - Routine Back/Spine/Pelvis Exam Back/Spine: Present: full ROM - Routine Skin Exam Present: intact - Routine Neurological Exam Present: altered mental status sedated on vent - Routine Psychiatric Exam Present: unable to assess - Urinary Catheter Management Urethral Cath placed during this visit: yes Reason for continuing: Accurate I&O/Aggressive Diuresis Insertion date: 04/02/17 Insertion time: 22:20 Assessment and Plan - Assessment and Plan Acute Hypoxic hypercapnic Respiratory Failure CAP Pneumonia Sepsis/ARDS Likely COPD Likely GLADYS - will need OP PSG Elevated LFT's HyperKalemia Fluid overload Plan: Pt currently on vent settings f22, Vt 500, peep 10, 50%, sats 93, will change peep to 8, if tolerates will decrease Fio2 next. CXR has improved congestion on L, R side clear, cont cardiomegaly. On BT's with pulmicort BID, a/a q4hr and 3% q 6, minimal sputum through ETT mainly with nasal and oral secretions. Currently on lasix 20 now BID. BLE doppler neg, still with edema BLE edema. On levaquin, cefepime, vanco and diflucan, temp 99 this am, WBC 13.5>12.2>15.1, sputum NTD from 04/13. Cont to victor m TF, Liver enzymes improving, Na normal and K + 5 today. Cont to follow closely. - Time Spent With Patient Total time spent is greater than 50% in coordination of care (as documented) at patient's floor/unit and/or counseling patient: 25 - 35 minutes
--- NOTE | 2017-04-16 10:16 | XRay Report ---
Indication: f/u PROCEDURE: XR chest 1V: Encounter: Initial Comparison: April 15, 2017 Findings: Support devices are grossly stable. Slight improvement in aeration of the left lower lobe. No new or worsening infiltrates. No pneumothorax on this semiupright view. Small pleural effusions. Heart size and mediastinal contours are stable. Impression: Slightly improved left-sided airspace disease. .
--- NOTE | 2017-04-16 10:24 | Progress Note ---
- Date 04/16/17 Subjective: Sedated and on vent. Opened eyes earlier when sedation decreased. FIO2 decreased to 50%. Brother at bedside. No new acute issues. RN reports no stool in at least 48 hours. Objective Vital signs: Temperature 99.3 F 04/16/17 04:00 Pulse Rate 76 04/16/17 09:00 Respiratory Rate 23 04/16/17 09:00 Blood Pressure 122/61 04/16/17 07:00 Pulse Oximetry 90 04/16/17 09:00 Rhythm: Normal Sinus Rhythm Height/Weight/BMI: Height 5 ft 11 in Weight 145.1 kg Body Mass Index 51.2 - Constitutional Present: somnolent - Routine HEENT Exam Head: Present: normocephalic, atraumatic - Routine Respiratory Exam Present: diminished air movement - Routine Cardiovascular Exam Present: RRR, no murmur - Routine Abdominal Exam Present: soft, normoactive bowel sounds - Routine Extremities Exam Present: edema - Routine Neurological Exam Present: moving all extremities Results - Labs CBC & Chem 7: 04/16/17 04:54 04/16/17 04:54 Microbiology Results: Microbiology 04/13/17 14:50 Sputum, Suctioned Gram Stain - Final 04/13/17 14:50 Sputum, Suctioned Sputum Culture - Final Normal Respiratory Jesus Present 04/09/17 10:00 Port/Picc Blood Culture - Final No Growth After 5 Days 04/09/17 09:24 Port/Picc Blood Culture - Final No Growth After 5 Days 04/06/17 10:37 Port/Picc Gram Stain - Final 04/06/17 10:37 Port/Picc Blood Culture - Final Corynebacterium species 04/06/17 11:03 Port/Picc Blood Culture - Final No Growth After 5 Days 04/07/17 08:43 Nasopahrynx Gram Stain - Final 04/07/17 08:43 Nasopahrynx Nasopharyngeal Culture - Final Normal Respiratory Jesus 04/03/17 11:30 Sputum, Suctioned Gram Stain - Final 04/03/17 11:30 Sputum, Suctioned Sputum Culture - Final Normal Respiratory Jesus 04/03/17 10:38 Urine Legionella Urinary Antigen - Final 04/03/17 10:38 Urine Streptococcus pneumoniae Antigen (M - Final - ABG Interpretation ABG results: 04/14/17 13:53 ABG pH 7.370 ABG pCO2 67 H* ABG pO2 79 L ABG HCO3 39 H ABG Total CO2 40.8 H ABG O2 Saturation 95.0 ABG Base Excess 10.9 H Assessment and Plan (1) Community acquired pneumonia Current visit: No Status: Acute Assessment and Plan: Assessment Acute hypoxic and hypercarbic respiratory failure-requiring mechanical ventilation. Intubated on 04/02/2017. Versed and fentanyl for sedation ARDS Community - acquired pneumonia-severe, requiring intubation. Levaquin initiated 04/03/2017 and Rocephin initiated 04/02/2017. Changed Rocephin to cefepime on . Sepsis secondary to pneumonia on admission Manifestations: Tachycardia, tachypnea, leukocytosis. Lactate normal on admission CODE BLUE/bradycardia versus short lasting asystole on 04/06/2017-patient received chest compressions 3 - EKG and troponin post event were normal Elevated d-dimer 555 - Lovenox therapeutic dose initiated 04/06/2017. Blood culture one of 2 on 04/06/2027 positive for corynebacterium -discussed with Dr. Johnson. This is most likely contaminant. Anasarca - improving; significant decrease of fluid since admit Echocardiogram revealed normal EF, left ventricular hypertrophy, PA pressure 41 with mild pulmonary hypertension (echo 04/06/2017 unchanged on recheck)-BNP has been normal. Diabetes Mellitus Type 2 - A1C 7.1 on admission (new diagnosis)-on Lantus, scheduled NovoLog and sliding scale insulin Possible COPD Probable obstructive sleep apnea Chronic back pain with high-dose ibuprofen and Tylenol use prior to admission Tinea corporis/ringworm? Tobacco dependence Hyperkalemia with potassium up to 5.5 of undetermined etiology (Not POA). Possible sinusitis right nears with copious thick nasal secretions - C/S showing normal jesus Mild hypernatremia (Not POA) Morbid obesity-BMI 42.0 Plan ID recommending stopping antibiotics and observing. Continue mechanical ventilation for respiratory support. FIO2 needs decreasing - pulm weaning. Secretions decreasing. Solu-Medrol at 40mg IV q 12 hours. Continue neb treatments and pulmonary toilet. Nutritional support with DH tube feeding. Potassium and sodium normal. Blood sugars still with elevations - Increase Lantus to 50 units at HS. Increase Lasix back to 20mg IV BID due to increasing edema to legs. Doppler legs from 04/14/17 showing no DVT - continue Lovenox 40mg SQ daily and SCD. Condition critical, showing improvement from the weekend. Continued CCU care needed secondary to respiratory failure and mechanical ventilation. Case discussed with CCU nursing and family. - Physician Narrative Narrative: Date: 04/16/17 Time: 1020 Hospital Course Summary Disclaimer: The visit summary below is not to be considered part of the above Progress Note. Hospital Course: Assessment Respiratory insufficiency with hypoxia Sepsis secondary to pneumonia Manifestations: Tachycardia, tachypnea, leukocytosis Community-acquired pneumonia Anasarca Morbid obesity-BMI 42.0 Hyperglycemia-POA Tinea corporis Tobacco dependence 04/02/17 Hospital admission Admit to inpatient status under the care of the hospitalist service, Dr. Lewis attending. It is expected that his stay will exceed 2 overnights given his sepsis secondary to pneumonia and overall condition. SCDs and Lovenox for DVT prophylaxis Urinalysis for laboratory completeness. Repeat CBC and BMP in am to follow leukocytosis, renal function and electrolytes. Schedule echocardiogram to evaluate cardiac structure and function given his anasarca and dyspnea. Oxygen, DuoNeb treatments, Acapella, and guaifenesin for respiratory symptoms. Continue Rocephin and Zithromax initiated and the emergency room. Blood cultures were drawn prior to antibiotic initiation. RT consult tobacco cessation. Terbinafine topically for his tinea corporis Patient wishes to be a full code. Case discussed with Dr. Lewis. Case management will need to assist in finding patient a PCP. 04/04/17 12:03 Plan The patient continues to require mechanical ventilation and is on 100% FiO2 regarding his ARDS and pneumonia. Continue ventilator support - Dr. Pineda is following. His help is greatly appreciated. Continue Levaquin initiated 04/03/2017 and Rocephin initiated 04/02/2017 Continue Solu-Medrol Discussed with Dr. Pineda, will change Lovenox to prophylactic dose. Venous Doppler of the legs were negative for DVT. No signs of right heart strain on echocardiogram. Advance tube feedings Nutren luminary 1.5 to goal of 70 ML's per hour. Start free water 400 ML's every 8 hours. DC IV fluids Vishal blood pressure off of IV fluids. May need to initiate antihypertensive Start Lantus 10 units subcutaneous daily. Increase to medium dose sliding scale insulin. Continue Lasix 40 mg IV every 12. Patient is diuresing well. Check CBC and renal panel tomorrow. Chest x-ray tomorrow. Assess with Dr. Pineda, the patient's significant other, and the patient's nurse. 04/05/17 09:31 Plan The patient continues to require mechanical ventilation and is now on 95% FiO2 regarding his ARDS and pneumonia. Continue ventilator support per Dr. Pineda Continue Levaquin initiated 04/03/2017 and Rocephin initiated 04/02/2017. Continue Solu-Medrol Regarding hyperkalemia, will try to change to feeding to a renal tube feeds. Check ABG. (7.32/79/103 on 95% FiO2) Recheck basic metabolic profile later today. May need to increase fluids followed by diuresis for hyperkalemia Increase Lantus to 20 units subcutaneous daily for hyperglycemia. Increase sliding scale insulin to high dose Start Reglan and Dulcolax suppositories to stimulate GI tract. Decrease tube feed rate to 50 ML's for now. Greater than 40 minutes critical care time. 04/07/2017 Plan The patient continues to require mechanical ventilation and FiO2 100% regarding his ARDS and pneumonia. The patient has tolerated discontinuation of propofol and initiation of Versed. The patient is tolerating his tube feedings. Will advance as tolerated. Will increase free water to 200 ML's every 4 hours and decrease Lasix to 20 mg IV every 12 regarding his elated sodium. Continue to monitor blood pressure closely. Continue Levaquin initiated 04/03/2017 and Rocephin initiated 04/02/2017. Continue Solu-Medrol Regarding hyperkalemia-is resolved. Continue renal tube feeds Continue Reglan and Dulcolax suppositories to stimulate GI tract. Greater than 45 minutes of critical care time spent seeing and evaluating the patient. The patient's brother was updated. 04/08/17 09:49 Plan Overall, the patient is stable. He is diuresing well. Weight is down approximately 22 kg over the past 1 week. He has been on the ventilator for one week now. FiO2 turned down to 95% this morning. Consulted Dr. Johnson regarding positive blood culture and antibiotic recommendations The patient continues to require mechanical ventilation regarding his ARDS and pneumonia. FiO2 down to 95% this morning The patient is tolerating his tube feedings. Will advance as tolerated to goal. Will increase free water to 250 ML's every 4 hours. Continue Lasix 20 mg IV every 12. Continue to monitor blood pressure closely. Continue Levaquin initiated 04/03/2017 and Rocephin initiated 04/02/2017. Continue Solu-Medrol and breathing treatments Regarding hyperkalemia- Continue renal tube feeds Continue Reglan and Dulcolax suppositories to stimulate GI tract. Regarding possible mild upper GI bleed, will Gastric occult NG drainage. Hold Lovenox for now. Greater than 45 minutes of critical care time spent seeing and evaluating the patient. 04/09/17 Overall, the patient is improving. FiO2 is now down to 70%. The patient appears to be nearly euvolemic at this time. We'll continue Lasix. Weight is down approximately 22 kg over the past [address] Johnson recommends approximately 10 days of broad-spectrum antibiotics for his pneumonia. She recommended discontinuation of vancomycin today with corynebacterium found in one of 2 blood cultures on April 06 most likely being a contaminant. Currently at goal rate on tube feedings. He is on a renal formulation because of hyperkalemia. May need to increase free water further if sodium does not improving. Continue Levaquin initiated 04/03/2017 and Rocephin initiated 04/02/2017. Rocephin discontinued on 04/06/2017 and cefepime started. Vancomycin started and discontinued on 04/09/2017 Continue Solu-Medrol and breathing treatments Add MiraLAX for constipation Continue Lovenox for DVT prophylaxis (gastric occult from NG drainage was negative) 04/10/17 Debbie Continue with levofloxacin and cefepime for antimicrobial coverage - ID recommending an approximate 10 day course. Will continue with Solu-Medrol at 40mg IV q 8 hours -started on 03/26/17. Potentially could start to decrease. Continue neb treatments and pulmonary toilet. Nutritional support with DH tube feeding. Potassium normal. LFT with gradual increase-potential fatty liver secondary to continuous TF. Continue Lasix. Weight is down approximately 22 kg over the past 1 week. Renal status stable. Blood sugars showing persistent elevation in the low to mid 200's. Will increase Lantus to 34 units at night. 04/11/17 Continue with levofloxacin and cefepime for antimicrobial coverage - ID recommending an approximate 10 day course. With increased temp, persistent leukocytosis, steroid and antibiotic use will start Diflucan 200mg IV daily. Continue mechanical ventilation for respiratory support. Pulm decreased Solu-Medrol to 40mg IV q 12 hours. Continue neb treatments and pulmonary toilet. Slowly able to wean down FIO2. Nutritional support with DH tube feeding. Continue Lasix 20 mg IV BID. Creatinine and BP stable. Potassium with increase to 5.4 this am. Blood sugars still with elevations - will continue current regimen, watching for decrease with decreased Solu-Medrol. 04/12/17 Continue with levofloxacin and cefepime for antimicrobial coverage - ID recommending an approximate 10 day course. Diflucan 200mg IV daily started 04/11/17. Continue mechanical ventilation for respiratory support - Solu-Medrol at 40mg IV q 12 hours. O2 needs increased today - likely mucous plugging. Creatinine with increase to 1.1. Edema much improved. Will decrease Lasix to 20mg daily to minimize overdiuresis. Blood sugars still with elevations - Increase Lantus to 38 units at HS. 04/13/17 Continue with levofloxacin and cefepime for antimicrobial coverage - ID recommending an approximate 10 day course. Diflucan 200mg IV daily started 04/11/17. Vancomycin started on 04/12/17 secondary to temp elevations. Continue mechanical ventilation for respiratory support. Increasing FIO2 - needing 100%. Sputum culture ordered by Dr Pineda. Solu-Medrol at 40mg IV q 12 hours. Continue neb treatments and pulmonary toilet. Nutritional support with DH tube feeding. Creatinine did decrease to 0.8. With increasing oxygen needs and increased intake as compared to output past 2 days will give 20mg IV Lasix. Blood sugars still with elevations - Increase Lantus to 42 units at HS. 04/14/17 Continue with levofloxacin and cefepime for antimicrobial coverage Diflucan 200mg IV daily started 04/11/17. Vancomycin started on 04/12/17 secondary to temp elevations. Continue mechanical ventilation for respiratory support. Sputum culture ordered 04/13 with results pending. Solu-Medrol at 40mg IV q 12 hours. Nutritional support with DH tube feeding. Potassium and sodium normal. Blood sugars still with elevations - Increase Lantus to 46 units at HS. Doppler legs pending - ? DVT as more pedal edema present. 04/15/17 Continue with levofloxacin and cefepime for antimicrobial coverage - ID recommending an approximate 10 day course. Diflucan 200mg IV daily started 04/11/17. Vancomycin started on 04/12/17 secondary to temp elevations. Continue mechanical ventilation for respiratory support. FIO2 needs decreasing - pulm weaning. Secretions decreasing. Sputum culture ordered 04/13 with normal respiratory jesus. Solu-Medrol at 40mg IV q 12 hours. Continue neb treatments and pulmonary toilet. Nutritional support with DH tube feeding. Potassium and sodium normal. Blood sugars still with elevations - Increase Lantus to 50 units at HS. Increase Lasix back to 20mg IV BID due to increasing edema to legs. Doppler legs from 04/14/17 showing no DVT - continue Lovenox 40mg SQ daily and SCD. 04/16/17 10:42 ID recommending stopping antibiotics and observing. Continue mechanical ventilation for respiratory support. FIO2 needs decreasing - pulm weaning. Secretions decreasing. Solu-Medrol at 40mg IV q 12 hours. Continue neb treatments and pulmonary toilet. Nutritional support with DH tube feeding. Potassium and sodium normal. Blood sugars still with elevations - Increase Lantus to 50 units at HS. Increase Lasix back to 20mg IV BID due to increasing edema to legs. Doppler legs from 04/14/17 showing no DVT - continue Lovenox 40mg SQ daily and SCD. Condition critical, showing improvement from the weekend. Continued CCU care needed secondary to respiratory failure and mechanical ventilation.
--- NOTE | 2017-04-16 11:12 | Cardiology Progress Note ---
<Vidhya Galvez - Last Filed: 04/17/17 15:41> Subjective Principal diagnosis: bradycardia Interval history: Gianni is seen in follow up for bradycardia. He remains sedated on the ventilator. He is down to 50% oxygen today. His brother is at the bedside. Exam Vital signs: Temperature 99.3 F 04/16/17 04:00 Pulse Rate 79 04/16/17 10:38 Respiratory Rate 24 04/16/17 10:38 Blood Pressure 122/61 04/16/17 07:00 Pulse Oximetry 92 04/16/17 10:38 - Constitutional no acute distress, morbidly obese - Routine HEENT Exam Head: Present: normocephalic ENT: Present: mucous membranes moist - Routine Neck Exam Absent: JVD, carotid bruit - Routine Chest/Breast/Axilla Exam Chest wall: Absent: tenderness - Routine Respiratory Exam Present: decreased breath sounds, CTA bilaterally. Absent: wheezes - Routine Cardiovascular Exam Present: RRR, no murmur - Routine Abdominal Exam Present: soft - Routine Extremities Exam Present: edema - Routine Skin Exam Present: intact, dry, warm - Routine Neurological Exam Present: alert - Additional findings Additional findings: Abnormal Lab Results 04/15/17 04/15/17 04/15/17 07:34 07:34 12:10 WBC RBC Hgb Hct MCV MCH MCHC RDW Std Deviation Plt Count MPV Immature Gran % (Auto) Neut % (Auto) Lymph % (Auto) [place] % (Auto) Eos % (Auto) Baso % (Auto) Neut # (Auto) Lymph # (Auto) [place] # (Auto) Eos # (Auto) Baso # (Auto) Abs Immat Gran (auto) Neutrophils % (Manual) Band Neutrophils % Lymphocytes % (Manual) Monocytes % (Manual) Neutrophils # (Manual) Band Neutrophils # Lymphocytes # (Manual) Monocytes # (Manual) Anisocytosis Macrocytosis RBC Morph Comment Turbidity Sodium Potassium Chloride Carbon Dioxide Anion Gap BUN Creatinine GFR Calculation BUN/Creatinine Ratio Glucose Glucometer 308 Calculated Osmolality Calcium Phosphorus Magnesium Total Bilirubin Conjugated Bilirubin Unconjugated Bilirubin Icterus Index AST ALT Alkaline Phosphatase Troponin I Total Protein Albumin Globulin Albumin/Globulin Ratio Procalcitonin 0.14 Specimen Hemolysis Vancomycin Trough 12.0 L 04/15/17 04/15/17 04/15/17 14:24 17:33 18:34 WBC RBC Hgb Hct MCV MCH MCHC RDW Std Deviation Plt Count MPV Immature Gran % (Auto) Neut % (Auto) Lymph % (Auto) [place] % (Auto) Eos % (Auto) Baso % (Auto) Neut # (Auto) Lymph # (Auto) [place] # (Auto) Eos # (Auto) Baso # (Auto) Abs Immat Gran (auto) Neutrophils % (Manual) Band Neutrophils % Lymphocytes % (Manual) Monocytes % (Manual) Neutrophils # (Manual) Band Neutrophils # Lymphocytes # (Manual) Monocytes # (Manual) Anisocytosis Macrocytosis RBC Morph Comment Turbidity Sodium Potassium Chloride Carbon Dioxide Anion Gap BUN Creatinine GFR Calculation BUN/Creatinine Ratio Glucose Glucometer 296 Calculated Osmolality Calcium Phosphorus Magnesium Total Bilirubin Conjugated Bilirubin Unconjugated Bilirubin Icterus Index AST ALT Alkaline Phosphatase Troponin I < 0.012 < 0.012 Total Protein Albumin Globulin Albumin/Globulin Ratio Procalcitonin Specimen Hemolysis 30 H 75 H Vancomycin Trough 04/16/17 04/16/17 04/16/17 00:15 04:54 04:54 WBC 15.1 H RBC 4.14 L Hgb 12.9 L Hct 41.7 MCV 100.7 H MCH 31.2 MCHC 30.9 L RDW Std Deviation 51.0 H Plt Count 213 MPV 11.5 Immature Gran % (Auto) Not performed Neut % (Auto) Not performed Lymph % (Auto) Not performed Lau[place] % (Auto) Not performed Eos % (Auto) Not performed Baso % (Auto) Not performed Neut # (Auto) Not performed Lymph # (Auto) Not performed [place] # (Auto) Not performed Eos # (Auto) Not performed Baso # (Auto) Not performed Abs Immat Gran (auto) Not performed Neutrophils % (Manual) 68.0 H Band Neutrophils % 9.0 H Lymphocytes % (Manual) 16.0 L Monocytes % (Manual) 7.0 Neutrophils # (Manual) 10.3 H Band Neutrophils # 1.4 Lymphocytes # (Manual) 2.4 Monocytes # (Manual) 1.1 H Anisocytosis 1+ Macrocytosis 1+ RBC Morph Comment Abnormal Turbidity < 20 Sodium 141 Potassium 5.0 Chloride 98 Carbon Dioxide 35 H Anion Gap 8 BUN 38.0 H Creatinine 0.6 L GFR Calculation 149 BUN/Creatinine Ratio 63 H Glucose 319 H Glucometer 293 Calculated Osmolality 292 H Calcium 8.8 Phosphorus 3.4 Magnesium 2.3 Total Bilirubin 0.50 Conjugated Bilirubin 0.00 Unconjugated Bilirubin 0.10 Icterus Index < 2 AST 23 ALT 74 H Alkaline Phosphatase 49 Troponin I Total Protein 6.8 Albumin 3.5 Globulin 3.3 Albumin/Globulin Ratio 1.1 Procalcitonin Specimen Hemolysis < 15 Vancomycin Trough 04/16/17 05:57 WBC RBC Hgb Hct MCV MCH MCHC RDW Std Deviation Plt Count MPV Immature Gran % (Auto) Neut % (Auto) Lymph % (Auto) [place] % (Auto) Eos % (Auto) Baso % (Auto) Neut # (Auto) Lymph # (Auto) [place] # (Auto) Eos # (Auto) Baso # (Auto) Abs Immat Gran (auto) Neutrophils % (Manual) Band Neutrophils % Lymphocytes % (Manual) Monocytes % (Manual) Neutrophils # (Manual) Band Neutrophils # Lymphocytes # (Manual) Monocytes # (Manual) Anisocytosis Macrocytosis RBC Morph Comment Turbidity Sodium Potassium Chloride Carbon Dioxide Anion Gap BUN Creatinine GFR Calculation BUN/Creatinine Ratio Glucose Glucometer 310 Calculated Osmolality Calcium Phosphorus Magnesium Total Bilirubin Conjugated Bilirubin Unconjugated Bilirubin Icterus Index AST ALT Alkaline Phosphatase Troponin I Total Protein Albumin Globulin Albumin/Globulin Ratio Procalcitonin Specimen Hemolysis Vancomycin Trough - Urinary Catheter Management Urethral Cath placed during this visit: yes Insertion date: 04/02/17 Insertion time: 22:20 Results 04/17/17 10:19 04/17/17 10:19 Cardiac Enzymes 04/15/17 04/15/17 04/16/17 Range/Units 14:24 18:34 04:54 AST 23 (17-59) U/L Troponin I < 0.012 < 0.012 (0-0.12) ng/ml CBC 04/16/17 Range/Units 04:54 WBC 15.1 H (4.5-11.0) T/MM3 RBC 4.14 L (4.50-5.90) M/MM3 Hgb 12.9 L (13.5-17.5) GM/DL Hct 41.7 (41-53) % Plt Count 213 (130-400) T/MM3 Neut # (Auto) Not performed Lymph # (Auto) Not performed Laurens # (Auto) Not performed Eos # (Auto) Not performed Baso # (Auto) Not performed Comprehensive Metabolic Panel 04/16/17 Range/Units 04:54 Sodium 141 (134-144) MEQ/L Potassium 5.0 (3.6-5) MEQ/L Chloride 98 (98-107) MEQ/L Carbon Dioxide 35 H (22-30) MEQ/L BUN 38.0 H (9-20) MG/DL Creatinine 0.6 L (0.8-1.5) MG/DL Glucose 319 H (75-110) MG/DL Calcium 8.8 (8.4-10.2) MG/DL Unconjugated Bilirubin 0.10 (0.00-1.1) MG/DL AST 23 (17-59) U/L ALT 74 H (21-72) U/L Alkaline Phosphatase 49 (38-126) U/L Total Protein 6.8 (6.3-8.2) G/DL Albumin 3.5 (3.5-5.0) G/DL Intake and Output 04/15/17 04/16/17 04/16/17 22:59 06:59 14:59 Intake Total 1813.750 / 5176.841 5172.050 / 1789.050 285.700 / 285.700 Output Total 1550 / 1550 1155 / 1155 580 / 580 Balance 263.750 / 263.750 634.050 / 634.050 -294.300 / -294.300 Intake: IV 873.750 / 873.750 849.050 / 849.050 75.700 / 75.700 Cefepime 2 gm In Ns 100 ml @ 100 / 100 100 / 100 200 mls/hr IV Q8H BOBBY Rx#: [id number] FentaNYL 1,000 mcg In Ns 80 ml 47.750 / 47.750 148.766 / 148.766 39.517 / 39.517 @ Per Protocol IV .Q0M PRN Rx#: [id number] Fluconazole Pb 200 mg In 100 ml 100 / 100 @ 100 mls/hr IV Q24H BOBBY Rx#: [id number] Midazolam 100 mg In RTU-Saline 126.0 / 126.0 100.284 / 100.284 36.183 / 36.183 0 ml @ Per Protocol IV .Q0M PRN Rx#:[id number] Vancomycin 2,500 mg In NS 500ml 500 / 500 500.000 / 500.000 500 ml @ 200 mls/hr IV Q8H BOBBY Rx#:[id number] Tube Feeding 440 / 440 440 / 440 110 / 110 Left Nare 440 / 440 440 / 440 110 / 110 Intake, Gastric Tube Irrigant 500 / 500 500 / 500 100 / 100 Amount Left Nare 150 / 150 300 / 300 Oral 350 / 350 200 / 200 100 / 100 Output: Urine Amount (Catheter) 1550 / 1550 1155 / 1155 580 / 580 Other: Urine Appearance Clear Sediment Sediment Urine Color Pale Yellow Yellow Yellow Weight 319 lb 14.252 oz Patient Weight 04/17/17 06:59 Weight 319 lb 14.252 oz - Imaging and Cardiology Imaging & Cardiology Narrative: Date of Exam: 04/16/17 Ordering Provider: Luisa Green APRN Type of Exam(s): XR chest 1V Reason for Exam(s): f/u Indication: f/u PROCEDURE: XR chest 1V: Encounter: Initial Comparison: April 15, 2017 Findings: Support devices are grossly stable. Slight improvement in aeration of the left lower lobe. No new or worsening infiltrates. No pneumothorax on this semiupright view. Small pleural effusions. Heart size and mediastinal contours are stable. Impression: Slightly improved left-sided airspace disease. 04/16/17 11:10 Assessment and Plan - Assessment and Plan (1) Community acquired pneumonia Current visit: No Status: Acute (2) Acute respiratory failure with hypoxia Current visit: Yes Status: Acute (3) Bradycardia Current visit: Yes Status: Acute - Assessment and Plan 04/06/17 Possibly related to anesthesia Or vagal with positioning for chest x-ray - NSR now, EKG obtained is WNL - Echo reviewed remotely by . He reports: EF 65%, Mild TR, Mild MR, PAP 42, trace PI, essentially the same as on 04/03/17. - Obtain TSH with reflex T4. K+ 4.6, Mag 2.6 today - Continue to monitor cardiac telemetry 04/08/17 No further bradycardia or pauses seen on telemetry - Will continue to monitor telemetry 04/09/2017 Bradycardia: On 04/06/2017 he went bradycardic. Likely due to vagal response with repositioning. 04/06/2017 ECG: NSR. Echo: EF 65%, mild MR/TR, PAP 42 K+, Mag and TSH wnl. Tele: SR - no further bradycardia or pauses seen on telemetry. Respiratory failure/ARDS/pneumonia On vent - FIO2 80%, sedated on versed and fentanyl. Receiving Lasix 20mg IV BID per pulm for large U/O. 04/10/2017 Bradycardia - no further bradycardia or pauses Respiratory failure/ARDS/pneumonia - On vent 50%. Sedated on versed and fentanyl - receiving lasix 20mg IV BID per pulm. Fluid overload - EF 65%. mild PHTN, PAP 42. requiring vent support. - 04/09 I/O: 2391/4965 (-2573). Wt down 23 kg since admit. k+ and Cr wnl. 04/09 CXR: atelectasis and effusion. . - cont lasix per pulm. 04/15/17 Remains intubated - Slight ST elevation noted on Telemetry - EKG now - Check troponin 04/16/16 Troponin negative - EKG show early repolarization - continue to monitor cardiac telemetry Thank you for allowing us to participate in the care of this patient, we will follow along with you. Hospital Course Summary Disclaimer: The visit summary below is not to be considered part of the above Progress Note. Hospital Course: Assessment Respiratory insufficiency with hypoxia Sepsis secondary to pneumonia Manifestations: Tachycardia, tachypnea, leukocytosis Community-acquired pneumonia Anasarca Morbid obesity-BMI 42.0 Hyperglycemia-POA Tinea corporis Tobacco dependence 04/02/17 Hospital admission Admit to inpatient status under the care of the hospitalist service, Dr. Lewis attending. It is expected that his stay will exceed 2 overnights given his sepsis secondary to pneumonia and overall condition. SCDs and Lovenox for DVT prophylaxis Urinalysis for laboratory completeness. Repeat CBC and BMP in am to follow leukocytosis, renal function and electrolytes. Schedule echocardiogram to evaluate cardiac structure and function given his anasarca and dyspnea. Oxygen, DuoNeb treatments, Acapella, and guaifenesin for respiratory symptoms. Continue Rocephin and Zithromax initiated and the emergency room. Blood cultures were drawn prior to antibiotic initiation. RT consult tobacco cessation. Terbinafine topically for his tinea corporis Patient wishes to be a full code. Case discussed with Dr. Lewis. Case management will need to assist in finding patient a PCP. 04/04/17 12:03 Plan The patient continues to require mechanical ventilation and is on 100% FiO2 regarding his ARDS and pneumonia. Continue ventilator support - Dr. Pineda is following. His help is greatly appreciated. Continue Levaquin initiated 04/03/2017 and Rocephin initiated 04/02/2017 Continue Solu-Medrol Discussed with Dr. Pineda, will change Lovenox to prophylactic dose. Venous Doppler of the legs were negative for DVT. No signs of right heart strain on echocardiogram. Advance tube feedings Nutren luminary 1.5 to goal of 70 ML's per hour. Start free water 400 ML's every 8 hours. DC IV fluids Vishal blood pressure off of IV fluids. May need to initiate antihypertensive Start Lantus 10 units subcutaneous daily. Increase to medium dose sliding scale insulin. Continue Lasix 40 mg IV every 12. Patient is diuresing well. Check CBC and renal panel tomorrow. Chest x-ray tomorrow. Assess with Dr. Pineda, the patient's significant other, and the patient's nurse. 04/05/17 09:31 Plan The patient continues to require mechanical ventilation and is now on 95% FiO2 regarding his ARDS and pneumonia. Continue ventilator support per Dr. Pineda Continue Levaquin initiated 04/03/2017 and Rocephin initiated 04/02/2017. Continue Solu-Medrol Regarding hyperkalemia, will try to change to feeding to a renal tube feeds. Check ABG. (7.32/79/103 on 95% FiO2) Recheck basic metabolic profile later today. May need to increase fluids followed by diuresis for hyperkalemia Increase Lantus to 20 units subcutaneous daily for hyperglycemia. Increase sliding scale insulin to high dose Start Reglan and Dulcolax suppositories to stimulate GI tract. Decrease tube feed rate to 50 ML's for now. Greater than 40 minutes critical care time. 04/07/2017 Plan The patient continues to require mechanical ventilation and FiO2 100% regarding his ARDS and pneumonia. The patient has tolerated discontinuation of propofol and initiation of Versed. The patient is tolerating his tube feedings. Will advance as tolerated. Will increase free water to 200 ML's every 4 hours and decrease Lasix to 20 mg IV every 12 regarding his elated sodium. Continue to monitor blood pressure closely. Continue Levaquin initiated 04/03/2017 and Rocephin initiated 04/02/2017. Continue Solu-Medrol Regarding hyperkalemia-is resolved. Continue renal tube feeds Continue Reglan and Dulcolax suppositories to stimulate GI tract. Greater than 45 minutes of critical care time spent seeing and evaluating the patient. The patient's brother was updated. 04/08/17 09:49 Plan Overall, the patient is stable. He is diuresing well. Weight is down approximately 22 kg over the past 1 week. He has been on the ventilator for one week now. FiO2 turned down to 95% this morning. Consulted Dr. Johnson regarding positive blood culture and antibiotic recommendations The patient continues to require mechanical ventilation regarding his ARDS and pneumonia. FiO2 down to 95% this morning The patient is tolerating his tube feedings. Will advance as tolerated to goal. Will increase free water to 250 ML's every 4 hours. Continue Lasix 20 mg IV every 12. Continue to monitor blood pressure closely. Continue Levaquin initiated 04/03/2017 and Rocephin initiated 04/02/2017. Continue Solu-Medrol and breathing treatments Regarding hyperkalemia- Continue renal tube feeds Continue Reglan and Dulcolax suppositories to stimulate GI tract. Regarding possible mild upper GI bleed, will Gastric occult NG drainage. Hold Lovenox for now. Greater than 45 minutes of critical care time spent seeing and evaluating the patient. <Ebenezer Mauricio - Last Filed: 04/21/17 14:50> Exam Vital signs: Temperature 101.5 F H 04/21/17 04:00 Pulse Rate 91 04/21/17 13:52 Respiratory Rate 28 H 04/21/17 13:52 Blood Pressure 121/77 04/21/17 08:00 Pulse Oximetry 94 04/21/17 13:52 - Urinary Catheter Management Urethral Cath placed during this visit: no Results 04/21/17 04:19 04/21/17 04:19 Cardiac Enzymes 04/21/17 Range/Units 04:19 AST 50 (17-59) U/L CBC 04/21/17 Range/Units 04:19 WBC 17.4 H (4.5-11.0) T/MM3 RBC 4.52 (4.50-5.90) M/MM3 Hgb 14.1 (13.5-17.5) GM/DL Hct 44.8 (41-53) % Plt Count 152 (130-400) T/MM3 Neut # (Auto) Not performed Lymph # (Auto) Not performed [place] # (Auto) Not performed Eos # (Auto) Not performed Baso # (Auto) Not performed Comprehensive Metabolic Panel 04/21/17 Range/Units 04:19 Sodium 140 (134-144) MEQ/L Potassium 4.2 (3.6-5) MEQ/L Chloride 101 (98-107) MEQ/L Carbon Dioxide 31 H (22-30) MEQ/L BUN 29.0 H (9-20) MG/DL Creatinine 0.6 L (0.8-1.5) MG/DL Glucose 181 H (75-110) MG/DL Calcium 8.7 (8.4-10.2) MG/DL AST 50 (17-59) U/L ALT 92 H (21-72) U/L Alkaline Phosphatase 54 (38-126) U/L Total Protein 7.0 (6.3-8.2) G/DL Albumin 3.5 (3.5-5.0) G/DL Intake and Output 04/20/17 04/21/17 04/21/17 22:59 06:59 14:59 Intake Total 1681.600 / 0252.251 6982.867 / 1801.867 778.883 / 778.883 Output Total 701 / 701 605 / 605 580 / 580 Balance 980.600 / 642.514 1292.867 / 1196.867 198.883 / 198.883 Intake: IV 1001.600 / 1001.600 941.867 / 941.867 168.883 / 168.883 Dexmedetomidine 1,000 mcg In NS 239.850 / 239.850 219.700 / 219.700 141.05 / 141.05 250ml 250 ml @ 0.2 MCG/KG/HR 7 .47 mls/hr IV .Q24H PRN Rx#: [id number] FentaNYL 1,000 mcg In Ns 80 ml 100.0 / 100.0 77.167 / 77.167 22.833 / 22.833 @ Per Protocol IV .Q0M PRN Rx#: [id number] Meropenem 1 gm In Ns 100 ml @ 100 / 100 100 / 100 200 mls/hr IV Q8H BOBBY Rx#: [id number] Midazolam 100 mg In RTU-Saline 61.750 / 61.750 45 / 45 5 / 5 0 ml @ Per Protocol IV .Q0M PRN Rx#:[id number] Vancomycin 2,500 mg In NS 500ml 500 / 500 500 / 500 500 ml @ 250 mls/hr IV Q8H BOBBY Rx#:[id number] Tube Feeding 430 / 430 360 / 360 300 / 300 Left Nare 430 / 430 360 / 360 300 / 300 Intake, Gastric Tube Irrigant 250 / 250 500 / 500 310 / 310 Amount Left Nare 250 / 250 500 / 500 310 / 310 Output: Urine Amount (Catheter) 701 / 701 605 / 605 580 / 580 Other: Urine Appearance Clear Clear Sediment Urine Color Light Lindsay Light Lindsay Yellow Assessment and Plan - Assessment and Plan (1) Community acquired pneumonia Current visit: No Status: Acute (2) Acute respiratory failure with hypoxia Current visit: Yes Status: Acute (3) Bradycardia Current visit: Yes Status: Acute - Attestation Attestation Narrative: 04/21/17 14:50 Recommendation After examining the patient I agree with the above assessment. I am involved in the formulation of the patient's plan of care. Hospital Course Summary Disclaimer: The visit summary below is not to be considered part of the above Progress Note.
[2017-04-16] MEDS: INSULIN GLARGINE 100unit/ml INJECTION SQ SCH (20:50)
[2017-04-16] MEDS: METOCLOPRAMIDE 10mg/2ml INJECTION IVP PRN (20:53)
[2017-04-17] MEDS: FentaNYL 1,000 MCG in NS 80 ML IV PRN ×4 (02:00→17:13)
[2017-04-17] MEDS: GUAIFENESIN 200mg/10ml ORAL LIQUID PO SCH ×4 (03:01→20:30)
[2017-04-17] MEDS: METOCLOPRAMIDE 10mg/2ml INJECTION IVP PRN (03:01)
[2017-04-17] MEDS: RTU SALINE IV PRN ×3 (03:45→21:18)
[2017-04-17] MEDS: MIDAZOLAM IV PRN ×3 (03:45→21:18)
[2017-04-17] MEDS: ALBUTEROL/IPRATROPIUM 2.5mg-0.5mg/3ml NEB AEROSOL SCH ×6 (04:05→23:02)
[2017-04-17] MEDS: INSULIN ASPART 100unit/ml INJECTION SQ PRN ×4 (06:03→23:23)
[2017-04-17] MEDS: INSULIN ASPART 100unit/ml INJECTION SQ SCH ×4 (06:03→23:23)
[2017-04-17] MEDS: BUDESONIDE INH.SOLN 0.5mg/2ml NEB AEROSOL SCH ×2 (07:09→19:11)
[2017-04-17] MEDS: NYSTATIN 500,000 units/5 ml ORAL LIQUID PO SCH ×4 (08:42→20:30)
[2017-04-17] MEDS: METHYLPREDNISOLONE SOD SUCC 40mg/ml INJECTION IVP SCH (08:42)
[2017-04-17] MEDS: REFRESH CLASSIC Eye Drops 0.4ml EACH EYE PRN (08:42)
[2017-04-17] MEDS: PANTOPRAZOLE 40 MG INJECTION IVP SCH ×2 (08:43→20:29)
[2017-04-17] MEDS: FUROSEMIDE 20 MG/2 ML INJECTION IVP SCH ×2 (08:43→20:29)
[2017-04-17] MEDS: ENOXAPARIN 40 MG/0.4 ML INJECTION SQ SCH (08:44)
[2017-04-17] MEDS: CHLORHEXIDINE 0.12% ORAL RINSE PO SCH ×2 (08:44→20:28)
[2017-04-17] MEDS: METOCLOPRAMIDE 10mg/2ml INJECTION IVP SCH ×3 (08:45→20:30)
[2017-04-17] MEDS: TERFINAFINE 1% CREAM 12 G TUBE TOP SCH ×2 (08:45→20:31)
--- NOTE | 2017-04-17 09:13 | Pulmonology Progress Note ---
<Luisa Green - Last Filed: 04/17/17 09:10> Subjective Principal diagnosis: bradycardia Interval history: Pt currently sedated on the vent with fent and versed. Currently at 50%, peep 8 and tolerating, sats 91%. No issues per staff noted, family at bedside. Exam Vital signs: Temperature 99.2 F 04/17/17 04:00 Pulse Rate 65 04/17/17 06:55 Respiratory Rate 20 04/17/17 07:09 Blood Pressure 128/62 04/17/17 06:00 Pulse Oximetry 91 04/17/17 07:09 - Constitutional no acute distress, morbidly obese - Routine HEENT Exam Head: Present: normocephalic, atraumatic Eye: Present: PERRL ENT: Present: mucous membranes moist - Routine Neck Exam Present: supple, full ROM, trachea midline - Routine Respiratory Exam Present: decreased breath sounds - Routine Cardiovascular Exam Present: RRR, S1, S2, no murmur - Routine Abdominal Exam Present: soft, normoactive bowel sounds - Routine Extremities Exam Present: edema, non tender, full ROM - Routine Skin Exam Present: intact, dry - Routine Neurological Exam Present: altered mental status sedated on the vent - Routine Psychiatric Exam Present: unable to assess - Urinary Catheter Management Urethral Cath placed during this visit: yes Insertion date: 04/02/17 Insertion time: 22:20 Assessment and Plan - Assessment and Plan Acute Hypoxic hypercapnic Respiratory Failure CAP Pneumonia Sepsis/ARDS Likely COPD Likely GLADYS - will need OP PSG Elevated LFT's HyperKalemia Fluid overload Plan: Pt currently on vent settings f22, Vt 500, peep 8, 50%, sats 91, decreased Fio2 to 45% and pt stable at 91%, spoke with RT they will try to wean him to 40% throughout the day. CXR has improved congestion throughout, slight R side atelectasis noted, cont cardiomegaly. On BT's with pulicort BID, a/a q4hr and 3 % q 6, minimal sputum through ETT mainly with nasal and oral secretions. Currently on lasix 20 BID with -2L/24hr, still with edema BLE edema. S/p levaquin, cefepime, vanco and diflucan, has been on Tx for 14 days for pna per ID, WBC 13.5>12.2>15.1, afebrile today, no lab today, sputum NTD from 04/13. Cont to victor m TF, Liver enzymes improving, Cont to follow closely and wean steroids to daily. - Time Spent With Patient Total time spent is greater than 50% in coordination of care (as documented) at patient's floor/unit and/or counseling patient: less than 15 minutes <Artur Pineda - Last Filed: 04/17/17 15:27> Exam Vital signs: Temperature 100.1 F 04/17/17 09:15 Pulse Rate 64 04/17/17 14:38 Respiratory Rate 20 04/17/17 14:38 Blood Pressure 119/64 04/17/17 10:30 Pulse Oximetry 92 04/17/17 14:38 - Urinary Catheter Management Urethral Cath placed during this visit: no Assessment and Plan (1) Acute respiratory failure with hypoxia Status: Acute Assessment and plan: improving. discussed with nursing staff, RT staff and family at bedside FiO2 down to 45%. Peep at 8. We will decrease PEEP to 6 today. If he tolerates, then try SBT in the AM. He will need NIPPV upon extubation. Current Visit: Yes (2) ARDS (adult respiratory distress syndrome) Status: Acute Current Visit: Yes (3) Community acquired pneumonia Status: Acute Current Visit: No - Time Spent With Patient Total time spent is greater than 50% in coordination of care (as documented) at patient's floor/unit and/or counseling patient:
--- NOTE | 2017-04-17 10:22 | Progress Note ---
- Date 04/17/17 Subjective: Sedated, on vent. He opened eyes and moved arms during bath, per RN. He had 4 stools yesterday afternoon/evening. FIO2 down to 45%. He opens eyes briefly to voice. TFs held for 4 hours for residual. Objective Vital signs: Temperature 99.2 F 04/17/17 04:00 Pulse Rate 78 04/17/17 09:57 Respiratory Rate 20 04/17/17 09:57 Blood Pressure 128/62 04/17/17 06:00 Pulse Oximetry 91 04/17/17 09:57 Rhythm: Normal Sinus Rhythm Height/Weight/BMI: Height 5 ft 11 in Weight 143.7 kg Body Mass Index 51.2 - Constitutional Present: no acute distress - Routine HEENT Exam Head: Present: normocephalic, atraumatic Eye: Present: EOMI, PERRL ENT: Present: mucous membranes moist - Routine Respiratory Exam Present: diminished air movement - Routine Cardiovascular Exam Present: RRR, no murmur - Routine Abdominal Exam Present: soft, normoactive bowel sounds, non distended, non tender - Routine Neurological Exam Present: alert, oriented X3, moving all extremities Results - Labs CBC & Chem 7: 04/16/17 04:54 04/16/17 04:54 Microbiology Results: Microbiology 04/13/17 14:50 Sputum, Suctioned Gram Stain - Final 04/13/17 14:50 Sputum, Suctioned Sputum Culture - Final Normal Respiratory Jesus Present 04/09/17 10:00 Port/Picc Blood Culture - Final No Growth After 5 Days 04/09/17 09:24 Port/Picc Blood Culture - Final No Growth After 5 Days 04/06/17 10:37 Port/Picc Gram Stain - Final 04/06/17 10:37 Port/Picc Blood Culture - Final Corynebacterium species 04/06/17 11:03 Port/Picc Blood Culture - Final No Growth After 5 Days 04/07/17 08:43 Nasopahrynx Gram Stain - Final 04/07/17 08:43 Nasopahrynx Nasopharyngeal Culture - Final Normal Respiratory Jesus 04/03/17 11:30 Sputum, Suctioned Gram Stain - Final 04/03/17 11:30 Sputum, Suctioned Sputum Culture - Final Normal Respiratory Jesus 04/03/17 10:38 Urine Legionella Urinary Antigen - Final 04/03/17 10:38 Urine Streptococcus pneumoniae Antigen (M - Final Assessment and Plan (1) Community acquired pneumonia Current visit: No Status: Acute Assessment and Plan: Assessment Acute hypoxic and hypercarbic respiratory failure-requiring mechanical ventilation. Intubated on 04/02/2017. Versed and fentanyl for sedation ARDS Community - acquired pneumonia-severe, requiring intubation. Levaquin initiated 04/03/2017 and Rocephin initiated 04/02/2017. Changed Rocephin to cefepime on . Sepsis secondary to pneumonia on admission Manifestations: Tachycardia, tachypnea, leukocytosis. Lactate normal on admission CODE BLUE/bradycardia versus short lasting asystole on 04/06/2017-patient received chest compressions 3 - EKG and troponin post event were normal Elevated d-dimer 555 - Lovenox therapeutic dose initiated 04/06/2017. Blood culture one of 2 on 04/06/2027 positive for corynebacterium -discussed with Dr. Johnson. This is most likely contaminant. Anasarca - improving; significant decrease of fluid since admit Echocardiogram revealed normal EF, left ventricular hypertrophy, PA pressure 41 with mild pulmonary hypertension (echo 04/06/2017 unchanged on recheck)-BNP has been normal. Diabetes Mellitus Type 2 - A1C 7.1 on admission (new diagnosis)-on Lantus, scheduled NovoLog and sliding scale insulin Possible COPD Probable obstructive sleep apnea Chronic back pain with high-dose ibuprofen and Tylenol use prior to admission Tinea corporis/ringworm? Tobacco dependence Hyperkalemia with potassium up to 5.5 of undetermined etiology (Not POA). Possible sinusitis right nears with copious thick nasal secretions - C/S showing normal jesus Mild hypernatremia (Not POA) Morbid obesity-BMI 42.0 Plan Observing off antibiotics. Continue mechanical ventilation for respiratory support. FIO2 needs decreasing - pulm weaning. Secretions decreasing. Solu-Medrol at 40mg IV daily. Continue neb treatments and pulmonary toilet. Nutritional support with DH tube feeding. Monitor potassium and sodium. Increasing TF to 65 ml/hr. Blood sugars still with elevations - Increase Lantus to 50 units at HS. Increase scheduled Novolog and sliding scale. Increase Lasix back to 20mg IV BID due to increasing edema to legs. Case discussed with CCU nursing. Reglan increased for TF residual and abd distention. Improving. - Physician Narrative Narrative: Date: 04/17/17 Time: 1019 Hospital Course Summary Disclaimer: The visit summary below is not to be considered part of the above Progress Note. Hospital Course: Assessment Respiratory insufficiency with hypoxia Sepsis secondary to pneumonia Manifestations: Tachycardia, tachypnea, leukocytosis Community-acquired pneumonia Anasarca Morbid obesity-BMI 42.0 Hyperglycemia-POA Tinea corporis Tobacco dependence 04/02/17 Hospital admission Admit to inpatient status under the care of the hospitalist service, Dr. Lewis attending. It is expected that his stay will exceed 2 overnights given his sepsis secondary to pneumonia and overall condition. SCDs and Lovenox for DVT prophylaxis Urinalysis for laboratory completeness. Repeat CBC and BMP in am to follow leukocytosis, renal function and electrolytes. Schedule echocardiogram to evaluate cardiac structure and function given his anasarca and dyspnea. Oxygen, DuoNeb treatments, Acapella, and guaifenesin for respiratory symptoms. Continue Rocephin and Zithromax initiated and the emergency room. Blood cultures were drawn prior to antibiotic initiation. RT consult tobacco cessation. Terbinafine topically for his tinea corporis Patient wishes to be a full code. Case discussed with Dr. Lewis. Case management will need to assist in finding patient a PCP. 04/04/17 12:03 Plan The patient continues to require mechanical ventilation and is on 100% FiO2 regarding his ARDS and pneumonia. Continue ventilator support - Dr. Pineda is following. His help is greatly appreciated. Continue Levaquin initiated 04/03/2017 and Rocephin initiated 04/02/2017 Continue Solu-Medrol Discussed with Dr. Pineda, will change Lovenox to prophylactic dose. Venous Doppler of the legs were negative for DVT. No signs of right heart strain on echocardiogram. Advance tube feedings Nutren luminary 1.5 to goal of 70 ML's per hour. Start free water 400 ML's every 8 hours. DC IV fluids Vishal blood pressure off of IV fluids. May need to initiate antihypertensive Start Lantus 10 units subcutaneous daily. Increase to medium dose sliding scale insulin. Continue Lasix 40 mg IV every 12. Patient is diuresing well. Check CBC and renal panel tomorrow. Chest x-ray tomorrow. Assess with Dr. Pineda, the patient's significant other, and the patient's nurse. 04/05/17 09:31 Plan The patient continues to require mechanical ventilation and is now on 95% FiO2 regarding his ARDS and pneumonia. Continue ventilator support per Dr. Pineda Continue Levaquin initiated 04/03/2017 and Rocephin initiated 04/02/2017. Continue Solu-Medrol Regarding hyperkalemia, will try to change to feeding to a renal tube feeds. Check ABG. (7.32/79/103 on 95% FiO2) Recheck basic metabolic profile later today. May need to increase fluids followed by diuresis for hyperkalemia Increase Lantus to 20 units subcutaneous daily for hyperglycemia. Increase sliding scale insulin to high dose Start Reglan and Dulcolax suppositories to stimulate GI tract. Decrease tube feed rate to 50 ML's for now. Greater than 40 minutes critical care time. 04/07/2017 Plan The patient continues to require mechanical ventilation and FiO2 100% regarding his ARDS and pneumonia. The patient has tolerated discontinuation of propofol and initiation of Versed. The patient is tolerating his tube feedings. Will advance as tolerated. Will increase free water to 200 ML's every 4 hours and decrease Lasix to 20 mg IV every 12 regarding his elated sodium. Continue to monitor blood pressure closely. Continue Levaquin initiated 04/03/2017 and Rocephin initiated 04/02/2017. Continue Solu-Medrol Regarding hyperkalemia-is resolved. Continue renal tube feeds Continue Reglan and Dulcolax suppositories to stimulate GI tract. Greater than 45 minutes of critical care time spent seeing and evaluating the patient. The patient's brother was updated. 04/08/17 09:49 Plan Overall, the patient is stable. He is diuresing well. Weight is down approximately 22 kg over the past 1 week. He has been on the ventilator for one week now. FiO2 turned down to 95% this morning. Consulted Dr. Johnson regarding positive blood culture and antibiotic recommendations The patient continues to require mechanical ventilation regarding his ARDS and pneumonia. FiO2 down to 95% this morning The patient is tolerating his tube feedings. Will advance as tolerated to goal. Will increase free water to 250 ML's every 4 hours. Continue Lasix 20 mg IV every 12. Continue to monitor blood pressure closely. Continue Levaquin initiated 04/03/2017 and Rocephin initiated 04/02/2017. Continue Solu-Medrol and breathing treatments Regarding hyperkalemia- Continue renal tube feeds Continue Reglan and Dulcolax suppositories to stimulate GI tract. Regarding possible mild upper GI bleed, will Gastric occult NG drainage. Hold Lovenox for now. Greater than 45 minutes of critical care time spent seeing and evaluating the patient. 04/17/17 10:35 Observing off antibiotics. Continue mechanical ventilation for respiratory support. FIO2 needs decreasing - pulm weaning. Secretions decreasing. Solu-Medrol at 40mg IV daily. Continue neb treatments and pulmonary toilet. Nutritional support with DH tube feeding. Monitor potassium and sodium. Increasing TF to 65 ml/hr. Blood sugars still with elevations - Increase Lantus to 50 units at HS. Increase scheduled Novolog and sliding scale. Increase Lasix back to 20mg IV BID due to increasing edema to legs. Case discussed with CCU nursing.
--- NOTE | 2017-04-17 10:39 | XRay Report ---
Indication: f/u PROCEDURE: XR chest 1V: Encounter: Initial Comparison: April 16, 2017 Findings: Tubes and lines are stable in position. Stable appearance of the lungs. No new or worsening consolidation. Small effusions. No pneumothorax. Heart size and mediastinal contours are stable. Impression: No change. .
[2017-04-17] MEDS: SODIUM CL 3% INHAL.SOLN 15ml NEB AEROSOL SCH ×2 (11:18→20:44)
[2017-04-17] MEDS: ACETAMINOPHEN 160mg/5ml ORAL LIQUID PO PRN (12:39)
--- NOTE | 2017-04-17 15:46 | Cardiology Progress Note ---
<Vidhya Galvez - Last Filed: 04/18/17 14:38> Subjective Principal diagnosis: bradycardia Interval history: Gianni is seen in follow up for bradycardia. He remains sedated on the ventilator. He is down to 40% oxygen today. Exam Vital signs: Temperature 100.1 F 04/17/17 09:15 Pulse Rate 64 04/17/17 14:38 Respiratory Rate 20 04/17/17 14:38 Blood Pressure 119/64 04/17/17 10:30 Pulse Oximetry 92 04/17/17 14:38 - Constitutional no acute distress, morbidly obese - Routine HEENT Exam Head: Present: normocephalic ENT: Present: mucous membranes moist - Routine Neck Exam Absent: JVD, carotid bruit - Routine Chest/Breast/Axilla Exam Chest wall: Absent: tenderness - Routine Respiratory Exam Present: decreased breath sounds, CTA bilaterally - Routine Cardiovascular Exam Present: RRR, no murmur - Routine Abdominal Exam Present: soft, normoactive bowel sounds - Routine Extremities Exam Present: edema - Routine Skin Exam Present: intact, dry, warm - Additional findings Additional findings: Acetaminophen (Tylenol Liquid) 640 mg PO Q5H PRN PRN Reason: Discomfort Last Admin: 04/17/17 12:39 Dose: 640 mg Albuterol/Ipratropium (Duoneb) 3 ml AEROSOL Q2HR PRN Last Admin: 04/14/17 22:10 Dose: 3 ml Albuterol/Ipratropium (Duoneb) 3 ml AEROSOL Q4HR [facility] Last Admin: 04/17/17 14:37 Dose: 3 ml Artificial Tears (Refresh Classic) 1 drop EACH EYE PRN PRN Last Admin: 04/17/17 08:42 Dose: 1 drop Bisacodyl (Dulcolax) 10 mg RECTALLY DAILY PRN PRN Reason: Constipation Last Admin: 04/16/17 05:36 Dose: 10 mg Budesonide (Pulmicort Inhalation) 0.5 mg AEROSOL RTBID [facility] Last Admin: 04/17/17 07:09 Dose: 0.5 mg Chlorhexidine Gluconate (Peridex) 15 ml PO BID [facility] Last Admin: 04/17/17 08:44 Dose: 15 ml Dextrose (D50%W) 20 ml IVP PRN PRN PRN Reason: Hypoglycemia Enoxaparin Sodium (Lovenox) 40 mg SQ DAILY [facility] Last Admin: 04/17/17 08:44 Dose: 40 mg Furosemide (Lasix) 20 mg IVP Q12HR [facility] Last Admin: 04/17/17 08:43 Dose: 20 mg Guaifenesin (Robitussin Liq) 400 mg PO Q6HR [facility] Last Admin: 04/17/17 15:13 Dose: 400 mg Fentanyl 1,000 mcg/ Sodium (Chloride) 100 mls @ 0 mls/hr IV .Q0M PRN; Protocol ; Per Protocol PRN Reason: Sedation Last Admin: 04/17/17 11:30 Dose: 19 mls/hr Midazolam HCl 100 mg/ Sodium (Chloride) 100 mls @ 0 mls/hr IV .Q0M PRN; Protocol; Per Protocol PRN Reason: VENT SEDATION Last Admin: 04/17/17 12:14 Dose: 13 mls/hr Insulin Aspart (Novolog) 3 - 12 unit SQ SS PRN; Protocol PRN Reason: Hyperglycemia Last Admin: 04/17/17 12:56 Dose: 6 unit Insulin Aspart (Novolog) 10 unit SQ 0001,0600,1200,1800 [facility] Last Admin: 04/17/17 15:13 Dose: 10 unit Insulin Glargine (Lantus) 50 unit SQ HS [facility] Last Admin: 04/16/17 20:50 Dose: 50 unit Lorazepam (Ativan Inj) 2 mg IVP Q1H PRN PRN Reason: Anxiety/Restlessness Last Admin: 04/11/17 20:35 Dose: 1 mg Magnesium Hydroxide (Mom) 30 ml PO DAILY PRN PRN Reason: Constipation Last Admin: 04/15/17 20:08 Dose: 30 ml Menthol (Ricola Sf) 1 lozenge MM PRN PRN PRN Reason: Cough Methylprednisolone Sodium Succinate (Solu-Medrol) 40 mg IVP DAILY [facility] Metoclopramide HCl (Reglan) 5 mg IVP Q6HR [facility] Metoclopramide HCl (Reglan) 10 mg IVP Q6HR [facility] Stop: 04/18/17 20:59 Last Admin: 04/17/17 15:13 Dose: 10 mg Nystatin (Mycostatin) 5 ml PO QID [facility] Last Admin: 04/17/17 15:13 Dose: 5 ml Pantoprazole Sodium (Protonix Iv) 40 mg IVP BID [facility] Last Admin: 04/17/17 08:43 Dose: 40 mg Sodium Chloride (Iv Flush) 10 - 80 ml IV PRN PRN PRN Reason: Flushing Last Admin: 04/16/17 03:45 Dose: 60 ml Sodium Chloride (Sodium Chloride 3% Inhal) 3 ml AEROSOL Q12HR [facility] Last Admin: 04/17/17 11:18 Dose: 3 ml Sodium Chloride (Normal Saline) 500 ml IV PRN PRN Last Admin: 04/15/17 20:00 Dose: 500 ml Terbinafine HCl (Lamisil At) 1 applic TOP BID [facility] Last Admin: 04/17/17 08:45 Dose: 1 applic - Urinary Catheter Management Urethral Cath placed during this visit: yes Insertion date: 04/02/17 Insertion time: 22:20 Results 04/18/17 04:19 04/18/17 04:19 CBC 04/17/17 Range/Units 10:19 WBC 17.5 H (4.5-11.0) T/MM3 RBC 4.41 L (4.50-5.90) M/MM3 Hgb 13.7 (13.5-17.5) GM/DL Hct 43.6 (41-53) % Plt Count 220 (130-400) T/MM3 Comprehensive Metabolic Panel 04/17/17 Range/Units 10:19 Sodium 140 (134-144) MEQ/L Potassium 4.4 (3.6-5) MEQ/L Chloride 94 L (98-107) MEQ/L Carbon Dioxide 36 H (22-30) MEQ/L BUN 38.0 H (9-20) MG/DL Creatinine 0.6 L (0.8-1.5) MG/DL Glucose 227 H (75-110) MG/DL Calcium 9.2 (8.4-10.2) MG/DL Albumin 3.7 (3.5-5.0) G/DL Intake and Output 04/17/17 04/17/17 04/17/17 06:59 14:59 22:59 Intake Total 1229.933 / 1229.933 870 / 870 Output Total 1110 / 1110 1545 / 1545 Balance 119.933 / 119.933 -675 / -675 Intake: IV 249.933 / 249.933 200 / 200 FentaNYL 1,000 mcg In Ns 80 ml 174.1 / 174.1 100 / 100 @ Per Protocol IV .Q0M PRN Rx#: [id number] Midazolam 100 mg In RTU-Saline 75.833 / 75.833 100 / 100 0 ml @ Per Protocol IV .Q0M PRN Rx#:[id number] Tube Feeding 480 / 480 420 / 420 Left Nare 480 / 480 420 / 420 Intake, Gastric Tube Irrigant 500 / 500 250 / 250 Amount Oral 500 / 500 250 / 250 Output: Urine Amount (Catheter) 1110 / 1110 1545 / 1545 Other: Urine Appearance Clear Urine Color Dark Yellow Weight 316 lb 12.868 oz Patient Weight 04/18/17 06:59 Weight 316 lb 12.868 oz - Imaging and Cardiology Imaging & Cardiology Narrative: Date of Exam: 04/17/17 Ordering Provider: Luisa Green APRN Type of Exam(s): XR chest 1V Reason for Exam(s): f/u Indication: f/u PROCEDURE: XR chest 1V: Encounter: Initial Comparison: April 16, 2017 Findings: Tubes and lines are stable in position. Stable appearance of the lungs. No new or worsening consolidation. Small effusions. No pneumothorax. Heart size and mediastinal contours are stable. Impression: No change. 04/17/17 15:44 Assessment and Plan - Assessment and Plan (1) Community acquired pneumonia Current visit: No Status: Acute (2) Acute respiratory failure with hypoxia Current visit: Yes Status: Acute (3) Bradycardia Current visit: Yes Status: Acute - Assessment and Plan 04/06/17 Possibly related to anesthesia Or vagal with positioning for chest x-ray - NSR now, EKG obtained is WNL - Echo reviewed remotely by . He reports: EF 65%, Mild TR, Mild MR, PAP 42, trace PI, essentially the same as on 04/03/17. - Obtain TSH with reflex T4. K+ 4.6, Mag 2.6 today - Continue to monitor cardiac telemetry 04/08/17 No further bradycardia or pauses seen on telemetry - Will continue to monitor telemetry 04/09/2017 Bradycardia: On 04/06/2017 he went bradycardic. Likely due to vagal response with repositioning. 04/06/2017 ECG: NSR. Echo: EF 65%, mild MR/TR, PAP 42 K+, Mag and TSH wnl. Tele: SR - no further bradycardia or pauses seen on telemetry. Respiratory failure/ARDS/pneumonia On vent - FIO2 80%, sedated on versed and fentanyl. Receiving Lasix 20mg IV BID per pulm for large U/O. 04/10/2017 Bradycardia - no further bradycardia or pauses Respiratory failure/ARDS/pneumonia - On vent 50%. Sedated on versed and fentanyl - receiving lasix 20mg IV BID per pulm. Fluid overload - EF 65%. mild PHTN, PAP 42. requiring vent support. - 04/09 I/O: 2391/4968 (-0093). Wt down 23 kg since admit. k+ and Cr wnl. 04/09 CXR: atelectasis and effusion. . - cont lasix per pulm. 04/15/17 Remains intubated - Slight ST elevation noted on Telemetry - EKG now - Check troponin 04/16/16 Troponin negative - EKG show early repolarization - continue to monitor cardiac telemetry 04/17/16 Remains on the vent, 40% today. - Stable from cardiac standpoint we will continue to monitor Thank you for allowing us to participate in the care of this patient, we will follow along with you. Hospital Course Summary Disclaimer: The visit summary below is not to be considered part of the above Progress Note. Hospital Course: Assessment Respiratory insufficiency with hypoxia Sepsis secondary to pneumonia Manifestations: Tachycardia, tachypnea, leukocytosis Community-acquired pneumonia Anasarca Morbid obesity-BMI 42.0 Hyperglycemia-POA Tinea corporis Tobacco dependence 04/02/17 Hospital admission Admit to inpatient status under the care of the hospitalist service, Dr. Lewis attending. It is expected that his stay will exceed 2 overnights given his sepsis secondary to pneumonia and overall condition. SCDs and Lovenox for DVT prophylaxis Urinalysis for laboratory completeness. Repeat CBC and BMP in am to follow leukocytosis, renal function and electrolytes. Schedule echocardiogram to evaluate cardiac structure and function given his anasarca and dyspnea. Oxygen, DuoNeb treatments, Acapella, and guaifenesin for respiratory symptoms. Continue Rocephin and Zithromax initiated and the emergency room. Blood cultures were drawn prior to antibiotic initiation. RT consult tobacco cessation. Terbinafine topically for his tinea corporis Patient wishes to be a full code. Case discussed with Dr. Lewis. Case management will need to assist in finding patient a PCP. 04/04/17 12:03 Plan The patient continues to require mechanical ventilation and is on 100% FiO2 regarding his ARDS and pneumonia. Continue ventilator support - Dr. Pineda is following. His help is greatly appreciated. Continue Levaquin initiated 04/03/2017 and Rocephin initiated 04/02/2017 Continue Solu-Medrol Discussed with Dr. Pineda, will change Lovenox to prophylactic dose. Venous Doppler of the legs were negative for DVT. No signs of right heart strain on echocardiogram. Advance tube feedings Nutren luminary 1.5 to goal of 70 ML's per hour. Start free water 400 ML's every 8 hours. DC IV fluids Vishal blood pressure off of IV fluids. May need to initiate antihypertensive Start Lantus 10 units subcutaneous daily. Increase to medium dose sliding scale insulin. Continue Lasix 40 mg IV every 12. Patient is diuresing well. Check CBC and renal panel tomorrow. Chest x-ray tomorrow. Assess with Dr. Pineda, the patient's significant other, and the patient's nurse. 04/05/17 09:31 Plan The patient continues to require mechanical ventilation and is now on 95% FiO2 regarding his ARDS and pneumonia. Continue ventilator support per Dr. Pineda Continue Levaquin initiated 04/03/2017 and Rocephin initiated 04/02/2017. Continue Solu-Medrol Regarding hyperkalemia, will try to change to feeding to a renal tube feeds. Check ABG. (7.32/79/103 on 95% FiO2) Recheck basic metabolic profile later today. May need to increase fluids followed by diuresis for hyperkalemia Increase Lantus to 20 units subcutaneous daily for hyperglycemia. Increase sliding scale insulin to high dose Start Reglan and Dulcolax suppositories to stimulate GI tract. Decrease tube feed rate to 50 ML's for now. Greater than 40 minutes critical care time. 04/07/2017 Plan The patient continues to require mechanical ventilation and FiO2 100% regarding his ARDS and pneumonia. The patient has tolerated discontinuation of propofol and initiation of Versed. The patient is tolerating his tube feedings. Will advance as tolerated. Will increase free water to 200 ML's every 4 hours and decrease Lasix to 20 mg IV every 12 regarding his elated sodium. Continue to monitor blood pressure closely. Continue Levaquin initiated 04/03/2017 and Rocephin initiated 04/02/2017. Continue Solu-Medrol Regarding hyperkalemia-is resolved. Continue renal tube feeds Continue Reglan and Dulcolax suppositories to stimulate GI tract. Greater than 45 minutes of critical care time spent seeing and evaluating the patient. The patient's brother was updated. 04/08/17 09:49 Plan Overall, the patient is stable. He is diuresing well. Weight is down approximately 22 kg over the past 1 week. He has been on the ventilator for one week now. FiO2 turned down to 95% this morning. Consulted Dr. Johnson regarding positive blood culture and antibiotic recommendations The patient continues to require mechanical ventilation regarding his ARDS and pneumonia. FiO2 down to 95% this morning The patient is tolerating his tube feedings. Will advance as tolerated to goal. Will increase free water to 250 ML's every 4 hours. Continue Lasix 20 mg IV every 12. Continue to monitor blood pressure closely. Continue Levaquin initiated 04/03/2017 and Rocephin initiated 04/02/2017. Continue Solu-Medrol and breathing treatments Regarding hyperkalemia- Continue renal tube feeds Continue Reglan and Dulcolax suppositories to stimulate GI tract. Regarding possible mild upper GI bleed, will Gastric occult NG drainage. Hold Lovenox for now. Greater than 45 minutes of critical care time spent seeing and evaluating the patient. <Ebenezer Mauricio - Last Filed: 04/21/17 14:51> Exam Vital signs: Temperature 101.5 F H 04/21/17 04:00 Pulse Rate 91 04/21/17 13:52 Respiratory Rate 28 H 04/21/17 13:52 Blood Pressure 121/77 04/21/17 08:00 Pulse Oximetry 94 04/21/17 13:52 - Urinary Catheter Management Urethral Cath placed during this visit: no Results 04/21/17 04:19 04/21/17 04:19 Cardiac Enzymes 04/21/17 Range/Units 04:19 AST 50 (17-59) U/L CBC 04/21/17 Range/Units 04:19 WBC 17.4 H (4.5-11.0) T/MM3 RBC 4.52 (4.50-5.90) M/MM3 Hgb 14.1 (13.5-17.5) GM/DL Hct 44.8 (41-53) % Plt Count 152 (130-400) T/MM3 Neut # (Auto) Not performed Lymph # (Auto) Not performed [place] # (Auto) Not performed Eos # (Auto) Not performed Baso # (Auto) Not performed Comprehensive Metabolic Panel 04/21/17 Range/Units 04:19 Sodium 140 (134-144) MEQ/L Potassium 4.2 (3.6-5) MEQ/L Chloride 101 (98-107) MEQ/L Carbon Dioxide 31 H (22-30) MEQ/L BUN 29.0 H (9-20) MG/DL Creatinine 0.6 L (0.8-1.5) MG/DL Glucose 181 H (75-110) MG/DL Calcium 8.7 (8.4-10.2) MG/DL AST 50 (17-59) U/L ALT 92 H (21-72) U/L Alkaline Phosphatase 54 (38-126) U/L Total Protein 7.0 (6.3-8.2) G/DL Albumin 3.5 (3.5-5.0) G/DL Intake and Output 04/20/17 04/21/17 04/21/17 22:59 06:59 14:59 Intake Total 1681.600 / 4228.580 4445.867 / 1801.867 778.883 / 778.883 Output Total 701 / 701 605 / 605 580 / 580 Balance 980.600 / 841.237 0891.867 / 1196.867 198.883 / 198.883 Intake: IV 1001.600 / 1001.600 941.867 / 941.867 168.883 / 168.883 Dexmedetomidine 1,000 mcg In NS 239.850 / 239.850 219.700 / 219.700 141.05 / 141.05 250ml 250 ml @ 0.2 MCG/KG/HR 7 .47 mls/hr IV .Q24H PRN Rx#: [id number] FentaNYL 1,000 mcg In Ns 80 ml 100.0 / 100.0 77.167 / 77.167 22.833 / 22.833 @ Per Protocol IV .Q0M PRN Rx#: [id number] Meropenem 1 gm In Ns 100 ml @ 100 / 100 100 / 100 200 mls/hr IV Q8H [facility] Rx#: [id number] Midazolam 100 mg In RTU-Saline 61.750 / 61.750 45 / 45 5 / 5 0 ml @ Per Protocol IV .Q0M PRN Rx#:[id number] Vancomycin 2,500 mg In NS 500ml 500 / 500 500 / 500 500 ml @ 250 mls/hr IV Q8H [facility] Rx#:[id number] Tube Feeding 430 / 430 360 / 360 300 / 300 Left Nare 430 / 430 360 / 360 300 / 300 Intake, Gastric Tube Irrigant 250 / 250 500 / 500 310 / 310 Amount Left Nare 250 / 250 500 / 500 310 / 310 Output: Urine Amount (Catheter) 701 / 701 605 / 605 580 / 580 Other: Urine Appearance Clear Clear Sediment Urine Color Light Lindsay Light Lindsay Yellow Assessment and Plan - Assessment and Plan (1) Community acquired pneumonia Current visit: No Status: Acute (2) Acute respiratory failure with hypoxia Current visit: Yes Status: Acute (3) Bradycardia Current visit: Yes Status: Acute - Attestation Attestation Narrative: 04/21/17 14:51 Recommendation After examining the patient I agree with the above assessment. I am involved in the formulation of the patient's plan of care. Hospital Course Summary Disclaimer: The visit summary below is not to be considered part of the above Progress Note.
[2017-04-17] MEDS ORDERED: FALL RISK - PHARMACY CONSULT MC ONE (17:25)
[2017-04-17] MEDS: INSULIN GLARGINE 100unit/ml INJECTION SQ SCH (20:30)
[2017-04-18] MEDS: FentaNYL 1,000 MCG in NS 80 ML IV PRN ×3 (00:32→17:28)
[2017-04-18] MEDS: ALBUTEROL/IPRATROPIUM 2.5mg-0.5mg/3ml NEB AEROSOL SCH ×6 (03:15→23:39)
[2017-04-18] MEDS: GUAIFENESIN 200mg/10ml ORAL LIQUID PO SCH ×4 (03:42→23:00)
[2017-04-18] MEDS: METOCLOPRAMIDE 10mg/2ml INJECTION IVP SCH ×4 (03:42→22:56)
[2017-04-18] MEDS: INSULIN ASPART 100unit/ml INJECTION SQ SCH ×3 (06:33→18:00)
[2017-04-18] MEDS: RTU SALINE IV PRN ×2 (07:00→23:55)
[2017-04-18] MEDS: BUDESONIDE INH.SOLN 0.5mg/2ml NEB AEROSOL SCH ×2 (07:00→18:54)
[2017-04-18] MEDS: MIDAZOLAM IV PRN ×2 (07:00→23:55)
[2017-04-18] MEDS: SODIUM CL 3% INHAL.SOLN 15ml NEB AEROSOL SCH ×2 (07:08→20:49)
[2017-04-18] MEDS ORDERED: DEXMEDETOMIDINE 200 MCG in NS 50 ML IV PRN (07:54)
--- NOTE | 2017-04-18 08:41 | XRay Report ---
Indication: f/u, intubated PROCEDURE: XR chest 1V: Encounter: Initial Comparison: April 17, 2017 Findings: Support devices are stable. Lung dorman are stable with hazy bilateral infiltrates, greatest in the left lower lobe. No pneumothorax. Trace effusions. Heart size and mediastinal contours are stable. Impression: Stable chest. .
--- NOTE | 2017-04-18 08:50 | Pulmonology Progress Note ---
<Luisa Green D - Last Filed: 04/18/17 08:45> Subjective Principal diagnosis: bradycardia Interval history: Pt currently sedated on the vent with fent and versed. Currently at 50%, peep 6 and tolerating, sats 91%. No issues per staff noted, family at bedside. Exam Vital signs: Temperature 99.6 F 04/18/17 04:00 Pulse Rate 85 04/18/17 07:13 Respiratory Rate 20 04/18/17 07:13 Blood Pressure 127/66 04/18/17 06:30 Pulse Oximetry 95 04/18/17 07:13 - Constitutional no acute distress, morbidly obese - Routine HEENT Exam Head: Present: normocephalic, atraumatic Eye: Present: EOMI ENT: Present: mucous membranes moist - Routine Neck Exam Present: supple, full ROM, trachea midline - Routine Respiratory Exam Present: patient mechanically ventilated, decreased breath sounds, wheezes Comments: faint wheeze, noted more with cough - Routine Cardiovascular Exam Present: RRR, S1, S2, no murmur - Routine Abdominal Exam Present: soft, normoactive bowel sounds - Routine Extremities Exam Present: edema, non tender, full ROM Comments: ROM passive as he is sedated - Routine Back/Spine/Pelvis Exam Back/Spine: Present: full ROM - Routine Skin Exam Present: intact, dry - Routine Neurological Exam Present: altered mental status sedated on vent - Routine Psychiatric Exam Present: unable to assess - Urinary Catheter Management Urethral Cath placed during this visit: yes Urethral indwelling: Yes Reason for continuing: Accurate I&O/Aggressive Diuresis Insertion date: 04/02/17 Insertion time: 22:20 Assessment and Plan - Assessment and Plan Acute Hypoxic hypercapnic Respiratory Failure CAP Pneumonia Sepsis/ARDS Likely COPD Likely GLADYS - will need OP PSG Elevated LFT's HyperKalemia Fluid overload Plan: Pt currently on vent settings f22, Vt 500, peep 6, 50%, sats 91, was at 40% but with waking up overnoc his FIo2 was increased. Will attempt SBT today, precedex ordered, CXR has improved congestion throughout, slight R/L side atelectasis noted, cont cardiomegaly. On BT's with pulmicort BID, a/a q4hr and 3% q 6 solumedrol 40 daily. Currently on lasix 20 BID with -700ml/24hr, still with BLE edema. S/p levaquin, cefepime, vanco and diflucan, has been on Tx for 14 days for pna per ID, WBC 12.2>15.1>19, febrile 100.4 this am, bands decreased 9>3, follow, procal neg on 04/16, sputum NTD from 04/13, BC NTD. Cont to victor m TF, Liver enzymes stable, Cont to follow closely. - Time Spent With Patient Total time spent is greater than 50% in coordination of care (as documented) at patient's floor/unit and/or counseling patient: less than 15 minutes <Artur Pineda - Last Filed: 04/19/17 13:37> Exam Vital signs: Temperature 99.9 F 04/19/17 12:00 Pulse Rate 84 04/19/17 12:30 Respiratory Rate 25 H 04/19/17 12:30 Blood Pressure 139/74 04/19/17 12:30 Pulse Oximetry 91 04/19/17 12:30 - Urinary Catheter Management Urethral Cath placed during this visit: no Assessment and Plan (1) Acute respiratory failure with hypoxia Status: Acute Assessment and plan: Patient was seen and examined, case discussed with nurse at bedside. SBT today, unlikely to extubate Current Visit: Yes - Time Spent With Patient Total time spent is greater than 50% in coordination of care (as documented) at patient's floor/unit and/or counseling patient:
[2017-04-18] MEDS: FUROSEMIDE 20 MG/2 ML INJECTION IVP SCH ×2 (09:10→22:43)
[2017-04-18] MEDS: CHLORHEXIDINE 0.12% ORAL RINSE PO SCH ×2 (09:10→22:46)
[2017-04-18] MEDS: ENOXAPARIN 40 MG/0.4 ML INJECTION SQ SCH (09:10)
[2017-04-18] MEDS: METHYLPREDNISOLONE SOD SUCC 40mg/ml INJECTION IVP SCH (09:11)
[2017-04-18] MEDS: TERFINAFINE 1% CREAM 12 G TUBE TOP SCH ×2 (09:12→23:24)
[2017-04-18] MEDS: NYSTATIN 500,000 units/5 ml ORAL LIQUID PO SCH ×4 (09:13→22:47)
[2017-04-18] MEDS: REFRESH CLASSIC Eye Drops 0.4ml EACH EYE PRN (09:14)
[2017-04-18] MEDS: PANTOPRAZOLE 40 MG INJECTION IVP SCH ×2 (09:14→22:56)
--- NOTE | 2017-04-18 09:22 | ID Progress Note ---
Subjective Date: 04/18/17 Subjective: Mr. Zamora remains intubated and sedated. Family at bedside. They report that staff is working on decreasing his sedation and trying to wean to extubate. No fever past 24 hours. Exam Vital Signs: Temperature 99.6 F 04/18/17 04:00 Pulse Rate 85 04/18/17 07:13 Respiratory Rate 20 04/18/17 07:13 Blood Pressure 127/66 04/18/17 06:30 Pulse Oximetry 95 04/18/17 07:13 Height/Weight/BMI: Height 1.8 m Weight 143.7 kg Body Mass Index 51.2 - Constitutional Present: obese Comments: sedated - Routine HEENT Exam Head: Present: normocephalic, atraumatic Eye: Present: EOMI, PERRL ENT: Present: mucous membranes dry Comments: ETT in place - Routine Neck Exam Present: supple - Routine Respiratory Exam Present: CTA bilaterally - Routine Cardiovascular Exam Present: RRR - Routine Abdominal Exam Present: soft, non distended, non tender Comments: hypoactive bowel sounds - Routine Extremities Exam Present: edema (trace LE edema). Absent: cyanosis, clubbing - Routine Skin Exam Absent: rash Comments: mild diffuse erythema face/neck/shoulders - Routine Neurological Exam Present: altered mental status (sedated) - Routine Psychiatric Exam Present: unable to assess Results - Labs CBC & Chem 7: 04/18/17 04:19 04/18/17 04:19 Microbiology Results: Microbiology 04/13/17 14:50 Sputum, Suctioned Gram Stain - Final 04/13/17 14:50 Sputum, Suctioned Sputum Culture - Final Normal Respiratory Mayelin Present 04/09/17 10:00 Port/Picc Blood Culture - Final No Growth After 5 Days 04/09/17 09:24 Port/Picc Blood Culture - Final No Growth After 5 Days 04/06/17 10:37 Port/Picc Gram Stain - Final 04/06/17 10:37 Port/Picc Blood Culture - Final Corynebacterium species 04/06/17 11:03 Port/Picc Blood Culture - Final No Growth After 5 Days 04/07/17 08:43 Nasopahrynx Gram Stain - Final 04/07/17 08:43 Nasopahrynx Nasopharyngeal Culture - Final Normal Respiratory Mayelin 04/03/17 11:30 Sputum, Suctioned Gram Stain - Final 04/03/17 11:30 Sputum, Suctioned Sputum Culture - Final Normal Respiratory Mayelin 04/03/17 10:38 Urine Legionella Urinary Antigen - Final 04/03/17 10:38 Urine Streptococcus pneumoniae Antigen (M - Final Impression: Sepsis, secondary to pulmonary source, s/p 14 days of IV antibiotics completed . Acute hypoxic respiratory failure Bilateral community-acquired pneumonia ARDS on steroids S/p CODE BLUE/bradycardia versus short lasting asystole on 04/06/2017 1/2 blood cultures positive for Corynebacterium species, contaminant DM II, newly diagnosed Morbid obesity Probable obstructive sleep apnea Tobaccoism Tinea corporis Copious thick nasal secretions from R nare, culture negative PCN allergy per records Elevated D-dimer Recommendation: Continue to monitor off antibiotics. He still has leukocytosis, but this is likely due at least in part to the steroids.
[2017-04-18] MEDS: SALINE FLUSH 10ml SYRINGE IV PRN (09:28)
[2017-04-18] MEDS ORDERED: NS IV PRN (11:01)
[2017-04-18] MEDS ORDERED: DEXMEDETOMIDINE IV PRN (11:01)
--- NOTE | 2017-04-18 12:34 | Progress Note ---
- Date 04/18/17 Subjective: Patient on vent, sedated. Precedex has been started and fentanyl and versed will be tapered. Patient restless during bath. At one point he sat up and struggled against restraints overnight. PEEP down to 6. Family is present. 1 stool yesterday. Objective Vital signs: Temperature 99.6 F 04/18/17 04:00 Pulse Rate 81 04/18/17 10:45 Respiratory Rate 22 04/18/17 10:45 Blood Pressure 127/66 04/18/17 06:30 Pulse Oximetry 89 L 04/18/17 10:45 Rhythm: Normal Sinus Rhythm Height/Weight/BMI: Height 5 ft 11 in Weight 143.7 kg Body Mass Index 51.2 - Constitutional Present: no acute distress - Routine HEENT Exam Head: Present: normocephalic, atraumatic Eye: Present: EOMI, PERRL - Routine Respiratory Exam Present: patient mechanically ventilated, decreased breath sounds - Routine Cardiovascular Exam Present: RRR, no murmur - Routine Abdominal Exam Present: soft, normoactive bowel sounds, non distended, non tender - Routine Extremities Exam Present: edema Results - Labs CBC & Chem 7: 04/18/17 04:19 04/18/17 04:19 Microbiology Results: Microbiology 04/13/17 14:50 Sputum, Suctioned Gram Stain - Final 04/13/17 14:50 Sputum, Suctioned Sputum Culture - Final Normal Respiratory Jesus Present 04/09/17 10:00 Port/Picc Blood Culture - Final No Growth After 5 Days 04/09/17 09:24 Port/Picc Blood Culture - Final No Growth After 5 Days 04/06/17 10:37 Port/Picc Gram Stain - Final 04/06/17 10:37 Port/Picc Blood Culture - Final Corynebacterium species 04/06/17 11:03 Port/Picc Blood Culture - Final No Growth After 5 Days 04/07/17 08:43 Nasopahrynx Gram Stain - Final 04/07/17 08:43 Nasopahrynx Nasopharyngeal Culture - Final Normal Respiratory Jesus 04/03/17 11:30 Sputum, Suctioned Gram Stain - Final 04/03/17 11:30 Sputum, Suctioned Sputum Culture - Final Normal Respiratory Jesus 04/03/17 10:38 Urine Legionella Urinary Antigen - Final 04/03/17 10:38 Urine Streptococcus pneumoniae Antigen (M - Final Assessment and Plan (1) Community acquired pneumonia Current visit: No Status: Acute Assessment and Plan: Assessment Acute hypoxic and hypercarbic respiratory failure-requiring mechanical ventilation. Intubated on 04/02/2017. Versed and fentanyl for sedation ARDS Community - acquired pneumonia-severe, requiring intubation. Levaquin initiated 04/03/2017 and Rocephin initiated 04/02/2017. Changed Rocephin to cefepime on . Sepsis secondary to pneumonia on admission Manifestations: Tachycardia, tachypnea, leukocytosis. Lactate normal on admission CODE BLUE/bradycardia versus short lasting asystole on 04/06/2017-patient received chest compressions 3 - EKG and troponin post event were normal Elevated d-dimer 555 - Lovenox therapeutic dose initiated 04/06/2017. Blood culture one of 2 on 04/06/2027 positive for corynebacterium -discussed with Dr. Johnson. This is most likely contaminant. Anasarca - improving; significant decrease of fluid since admit Echocardiogram revealed normal EF, left ventricular hypertrophy, PA pressure 41 with mild pulmonary hypertension (echo 04/06/2017 unchanged on recheck)-BNP has been normal. Diabetes Mellitus Type 2 - A1C 7.1 on admission (new diagnosis)-on Lantus, scheduled NovoLog and sliding scale insulin Possible COPD Probable obstructive sleep apnea Chronic back pain with high-dose ibuprofen and Tylenol use prior to admission Tinea corporis/ringworm? Tobacco dependence Hyperkalemia with potassium up to 5.5 of undetermined etiology (Not POA). Possible sinusitis right nears with copious thick nasal secretions - C/S showing normal jesus Mild hypernatremia (Not POA) Morbid obesity-BMI 42.0 Plan Observing off antibiotics. Has leukocytosis but no clear sign of infection. Continue mechanical ventilation for respiratory support. FIO2 needs decreasing - pulm weaning. Secretions decreasing. Solu-Medrol at 40mg IV daily. Continue neb treatments and pulmonary toilet. Nutritional support with DH tube feeding. Monitor potassium and sodium. Increasing TF to 65 ml/hr. Blood sugars improved today with increase to scheduled Novolog and sliding scale. Lasix at to 20mg IV BID due to increasing edema to legs. Case discussed with CCU nursing. Reglan increased for 48 hours for TF residual and abd distention. Improving. - Physician Narrative Narrative: Date: 04/18/17 Time: 1230 Hospital Course Summary Disclaimer: The visit summary below is not to be considered part of the above Progress Note. Hospital Course: Assessment Respiratory insufficiency with hypoxia Sepsis secondary to pneumonia Manifestations: Tachycardia, tachypnea, leukocytosis Community-acquired pneumonia Anasarca Morbid obesity-BMI 42.0 Hyperglycemia-POA Tinea corporis Tobacco dependence 04/02/17 Hospital admission Admit to inpatient status under the care of the hospitalist service, Dr. Lewis attending. It is expected that his stay will exceed 2 overnights given his sepsis secondary to pneumonia and overall condition. SCDs and Lovenox for DVT prophylaxis Urinalysis for laboratory completeness. Repeat CBC and BMP in am to follow leukocytosis, renal function and electrolytes. Schedule echocardiogram to evaluate cardiac structure and function given his anasarca and dyspnea. Oxygen, DuoNeb treatments, Acapella, and guaifenesin for respiratory symptoms. Continue Rocephin and Zithromax initiated and the emergency room. Blood cultures were drawn prior to antibiotic initiation. RT consult tobacco cessation. Terbinafine topically for his tinea corporis Patient wishes to be a full code. Case discussed with Dr. Lewis. Case management will need to assist in finding patient a PCP. 04/04/17 12:03 Plan The patient continues to require mechanical ventilation and is on 100% FiO2 regarding his ARDS and pneumonia. Continue ventilator support - Dr. Pineda is following. His help is greatly appreciated. Continue Levaquin initiated 04/03/2017 and Rocephin initiated 04/02/2017 Continue Solu-Medrol Discussed with Dr. Pineda, will change Lovenox to prophylactic dose. Venous Doppler of the legs were negative for DVT. No signs of right heart strain on echocardiogram. Advance tube feedings Nutren luminary 1.5 to goal of 70 ML's per hour. Start free water 400 ML's every 8 hours. DC IV fluids Vishal blood pressure off of IV fluids. May need to initiate antihypertensive Start Lantus 10 units subcutaneous daily. Increase to medium dose sliding scale insulin. Continue Lasix 40 mg IV every 12. Patient is diuresing well. Check CBC and renal panel tomorrow. Chest x-ray tomorrow. Assess with Dr. Pineda, the patient's significant other, and the patient's nurse. 12/23/17 09:31 Plan The patient continues to require mechanical ventilation and is now on 95% FiO2 regarding his ARDS and pneumonia. Continue ventilator support per Dr. Pineda Continue Levaquin initiated 04/03/2017 and Rocephin initiated 04/02/2017. Continue Solu-Medrol Regarding hyperkalemia, will try to change to feeding to a renal tube feeds. Check ABG. (7.32/79/103 on 95% FiO2) Recheck basic metabolic profile later today. May need to increase fluids followed by diuresis for hyperkalemia Increase Lantus to 20 units subcutaneous daily for hyperglycemia. Increase sliding scale insulin to high dose Start Reglan and Dulcolax suppositories to stimulate GI tract. Decrease tube feed rate to 50 ML's for now. Greater than 40 minutes critical care time. 04/07/2017 Plan The patient continues to require mechanical ventilation and FiO2 100% regarding his ARDS and pneumonia. The patient has tolerated discontinuation of propofol and initiation of Versed. The patient is tolerating his tube feedings. Will advance as tolerated. Will increase free water to 200 ML's every 4 hours and decrease Lasix to 20 mg IV every 12 regarding his elated sodium. Continue to monitor blood pressure closely. Continue Levaquin initiated 04/03/2017 and Rocephin initiated 04/02/2017. Continue Solu-Medrol Regarding hyperkalemia-is resolved. Continue renal tube feeds Continue Reglan and Dulcolax suppositories to stimulate GI tract. Greater than 45 minutes of critical care time spent seeing and evaluating the patient. The patient's brother was updated. 04/08/17 09:49 Plan Overall, the patient is stable. He is diuresing well. Weight is down approximately 22 kg over the past 1 week. He has been on the ventilator for one week now. FiO2 turned down to 95% this morning. Consulted Dr. Johnson regarding positive blood culture and antibiotic recommendations The patient continues to require mechanical ventilation regarding his ARDS and pneumonia. FiO2 down to 95% this morning The patient is tolerating his tube feedings. Will advance as tolerated to goal. Will increase free water to 250 ML's every 4 hours. Continue Lasix 20 mg IV every 12. Continue to monitor blood pressure closely. Continue Levaquin initiated 04/03/2017 and Rocephin initiated 04/02/2017. Continue Solu-Medrol and breathing treatments Regarding hyperkalemia- Continue renal tube feeds Continue Reglan and Dulcolax suppositories to stimulate GI tract. Regarding possible mild upper GI bleed, will Gastric occult NG drainage. Hold Lovenox for now. Greater than 45 minutes of critical care time spent seeing and evaluating the patient. Observing off antibiotics. Has leukocytosis but no clear sign of infection. Continue mechanical ventilation for respiratory support. FIO2 needs decreasing - pulm weaning. Secretions decreasing. Solu-Medrol at 40mg IV daily. Continue neb treatments and pulmonary toilet. Precedex started. Nutritional support with DH tube feeding. Monitor potassium and sodium. Increasing TF to 65 ml/hr. Blood sugars improved today with increase to scheduled Novolog and sliding scale. Lasix at to 20mg IV BID due to increasing edema to legs. Case discussed with CCU nursing. Reglan increased for 48 hours for TF residual and abd distention. Improving.
[2017-04-18] MEDS: INSULIN ASPART 100unit/ml INJECTION SQ PRN ×2 (12:36→19:07)
[2017-04-18] MEDS: NS IV PRN (16:29)
[2017-04-18] MEDS: DEXMEDETOMIDINE IV PRN (16:29)
--- NOTE | 2017-04-18 16:44 | Cardiology Progress Note ---
<Vidhya Galvez - Last Filed: 04/18/17 16:41> Subjective Principal diagnosis: bradycardia Interval history: Gianni is seen in follow up for bradycardia. He remains sedated on the ventilator. He is up to 55% today and sats are low 90s. Many family at the bedside. Exam Vital signs: Temperature 99.6 F 04/18/17 04:00 Pulse Rate 84 04/18/17 15:09 Respiratory Rate 35 H 04/18/17 15:09 Blood Pressure 127/66 04/18/17 06:30 Pulse Oximetry 90 04/18/17 15:09 - Constitutional morbidly obese - Routine HEENT Exam Head: Present: normocephalic ENT: Present: mucous membranes moist - Routine Neck Exam Absent: JVD, carotid bruit - Routine Chest/Breast/Axilla Exam Chest wall: Absent: tenderness - Routine Respiratory Exam Present: decreased breath sounds - Routine Cardiovascular Exam Present: RRR, no murmur - Routine Abdominal Exam Present: soft, normoactive bowel sounds - Routine Extremities Exam Present: edema - Routine Skin Exam Present: intact, dry, warm - Additional findings Additional findings: Acetaminophen (Tylenol Liquid) 640 mg PO Q5H PRN PRN Reason: Discomfort Last Admin: 04/17/17 12:39 Dose: 640 mg Albuterol/Ipratropium (Duoneb) 3 ml AEROSOL Q2HR PRN Last Admin: 04/14/17 22:10 Dose: 3 ml Albuterol/Ipratropium (Duoneb) 3 ml AEROSOL Q4HR [facility] Last Admin: 04/18/17 14:24 Dose: 3 ml Artificial Tears (Refresh Classic) 1 drop EACH EYE PRN PRN Last Admin: 04/18/17 09:14 Dose: 1 drop Bisacodyl (Dulcolax) 10 mg RECTALLY DAILY PRN PRN Reason: Constipation Last Admin: 04/16/17 05:36 Dose: 10 mg Budesonide (Pulmicort Inhalation) 0.5 mg AEROSOL RTBID [facility] Last Admin: 04/18/17 07:00 Dose: 0.5 mg Chlorhexidine Gluconate (Peridex) 15 ml PO BID [facility] Last Admin: 04/18/17 09:10 Dose: 15 ml Dextrose (D50%W) 20 ml IVP PRN PRN PRN Reason: Hypoglycemia Enoxaparin Sodium (Lovenox) 40 mg SQ DAILY [facility] Last Admin: 04/18/17 09:10 Dose: 40 mg Furosemide (Lasix) 20 mg IVP Q12HR [facility] Last Admin: 04/18/17 09:10 Dose: 20 mg Guaifenesin (Robitussin Liq) 400 mg PO Q6HR [facility] Last Admin: 04/18/17 09:11 Dose: 400 mg Fentanyl 1,000 mcg/ Sodium (Chloride) 100 mls @ 0 mls/hr IV .Q0M PRN; Protocol ; Per Protocol PRN Reason: Sedation Last Infusion: 04/18/17 13:05 Dose: 7 mls/hr Midazolam HCl 100 mg/ Sodium (Chloride) 100 mls @ 0 mls/hr IV .Q0M PRN; Protocol; Per Protocol PRN Reason: VENT SEDATION Last Titration: 04/18/17 13:05 Dose: 3 mls/hr Dexmedetomidine HCl 1,000 mcg/ (Sodium Chloride) 260 mls @ 7.47 mls/hr IV .Q24H PRN; 0.2 MCG/KG/HR PRN Reason: Protocol Last Admin: 04/18/17 16:29 Dose: 0.67 mcg/kg/hr, 25.1 mls/hr Insulin Aspart (Novolog) 3 - 12 unit SQ SS PRN; Protocol PRN Reason: Hyperglycemia Last Admin: 04/18/17 12:36 Dose: 6 unit Insulin Aspart (Novolog) 10 unit SQ 0001,0600,1200,1800 [facility] Last Admin: 04/18/17 12:36 Dose: 10 unit Insulin Glargine (Lantus) 50 unit SQ HS [facility] Last Admin: 04/17/17 20:30 Dose: 50 unit Lorazepam (Ativan Inj) 2 mg IVP Q1H PRN PRN Reason: Anxiety/Restlessness Last Admin: 04/18/17 03:40 Dose: 2 mg Magnesium Hydroxide (Mom) 30 ml PO DAILY PRN PRN Reason: Constipation Last Admin: 04/15/17 20:08 Dose: 30 ml Menthol (Ricola Sf) 1 lozenge MM PRN PRN PRN Reason: Cough Methylprednisolone Sodium Succinate (Solu-Medrol) 40 mg IVP DAILY [facility] Last Admin: 04/18/17 09:11 Dose: 40 mg Metoclopramide HCl (Reglan) 5 mg IVP Q6HR [facility] Metoclopramide HCl (Reglan) 10 mg IVP Q6HR [facility] Stop: 04/18/17 20:59 Last Admin: 04/18/17 09:13 Dose: 10 mg Nystatin (Mycostatin) 5 ml PO QID [facility] Last Admin: 04/18/17 09:13 Dose: 5 ml Pantoprazole Sodium (Protonix Iv) 40 mg IVP BID [facility] Last Admin: 04/18/17 09:14 Dose: 40 mg Sodium Chloride (Iv Flush) 10 - 80 ml IV PRN PRN PRN Reason: Flushing Last Admin: 04/18/17 09:28 Dose: 60 ml Sodium Chloride (Sodium Chloride 3% Inhal) 3 ml AEROSOL Q12HR [facility] Last Admin: 04/18/17 07:08 Dose: 3 ml Sodium Chloride (Normal Saline) 500 ml IV PRN PRN Last Admin: 04/15/17 20:00 Dose: 500 ml Terbinafine HCl (Lamisil At) 1 applic TOP BID [facility] Last Admin: 04/18/17 09:12 Dose: 1 applic - Urinary Catheter Management Urethral Cath placed during this visit: yes Urethral indwelling: Yes Insertion date: 04/02/17 Insertion time: 22:20 Results 04/18/17 04:19 04/18/17 04:19 Cardiac Enzymes 04/18/17 Range/Units 04:19 AST 37 D (17-59) U/L CBC 04/18/17 Range/Units 04:19 WBC 19.6 H (4.5-11.0) T/MM3 RBC 4.51 (4.50-5.90) M/MM3 Hgb 14.0 (13.5-17.5) GM/DL Hct 44.4 (41-53) % Plt Count 217 (130-400) T/MM3 Neut # (Auto) Not performed Lymph # (Auto) Not performed [place] # (Auto) Not performed Eos # (Auto) Not performed Baso # (Auto) Not performed Comprehensive Metabolic Panel 04/18/17 Range/Units 04:19 Sodium 141 (134-144) MEQ/L Potassium 3.6 D (3.6-5) MEQ/L Chloride 96 L (98-107) MEQ/L Carbon Dioxide 37 H (22-30) MEQ/L BUN 36.0 H (9-20) MG/DL Creatinine 0.6 L (0.8-1.5) MG/DL Glucose 145 H (75-110) MG/DL Calcium 9.1 (8.4-10.2) MG/DL AST 37 D (17-59) U/L ALT 73 H (21-72) U/L Alkaline Phosphatase 52 (38-126) U/L Total Protein 6.8 (6.3-8.2) G/DL Albumin 3.5 (3.5-5.0) G/DL Intake and Output 04/18/17 04/18/17 04/18/17 06:59 14:59 22:59 Intake Total 1278.733 / 1278.733 296.102 / 296.102 Output Total 598 / 598 70 / 70 Balance 680.733 / 680.733 226.102 / 226.102 Intake: IV 298.733 / 298.733 176.102 / 176.102 Dexmedetomidine 400 mcg In Ns 21.365 / 21.365 100 ml @ 0.2 MCG/KG/HR 7.47 mls /hr IV .[id number] PRN Rx#: [id number] Dexmedetomidine 200 mcg In Ns 10.02 / 10.02 50 ml @ 0.2 MCG/KG/HR 7.47 mls/ hr IV .Q6H58M PRN Rx#:[id number] FentaNYL 1,000 mcg In Ns 80 ml 198.733 / 198.733 81.900 / 81.900 @ Per Protocol IV .Q0M PRN Rx#: [id number] Midazolam 100 mg In RTU-Saline 100.000 / 100.000 62.817 / 62.817 0 ml @ Per Protocol IV .Q0M PRN Rx#:[id number] Tube Feeding 480 / 480 120 / 120 Left Nare 480 / 480 120 / 120 Intake, Gastric Tube Irrigant 500 / 500 Amount Oral 500 / 500 Output: Urine Amount (Catheter) 598 / 598 70 / 70 - Imaging and Cardiology Imaging & Cardiology Narrative: Date of Exam: 04/18/17 Ordering Provider: Luisa Green APRN Type of Exam(s): XR chest 1V Reason for Exam(s): f/u, intubated Indication: f/u, intubated PROCEDURE: XR chest 1V: Encounter: Initial Comparison: April 17, 2017 Findings: Support devices are stable. Lung dorman are stable with hazy bilateral infiltrates, greatest in the left lower lobe. No pneumothorax. Trace effusions. Heart size and mediastinal contours are stable. Impression: Stable chest. 04/18/17 16:43 Assessment and Plan - Assessment and Plan (1) Community acquired pneumonia Current visit: No Status: Acute (2) Acute respiratory failure with hypoxia Current visit: Yes Status: Acute (3) Bradycardia Current visit: Yes Status: Acute - Assessment and Plan 04/06/17 Possibly related to anesthesia Or vagal with positioning for chest x-ray - NSR now, EKG obtained is WNL - Echo reviewed remotely by . He reports: EF 65%, Mild TR, Mild MR, PAP 42, trace PI, essentially the same as on 04/03/17. - Obtain TSH with reflex T4. K+ 4.6, Mag 2.6 today - Continue to monitor cardiac telemetry 04/08/17 No further bradycardia or pauses seen on telemetry - Will continue to monitor telemetry 04/09/2017 Bradycardia: On 04/06/2017 he went bradycardic. Likely due to vagal response with repositioning. 04/06/2017 ECG: NSR. Echo: EF 65%, mild MR/TR, PAP 42 K+, Mag and TSH wnl. Tele: SR - no further bradycardia or pauses seen on telemetry. Respiratory failure/ARDS/pneumonia On vent - FIO2 80%, sedated on versed and fentanyl. Receiving Lasix 20mg IV BID per pulm for large U/O. 04/10/2017 Bradycardia - no further bradycardia or pauses Respiratory failure/ARDS/pneumonia - On vent 50%. Sedated on versed and fentanyl - receiving lasix 20mg IV BID per pulm. Fluid overload - EF 65%. mild PHTN, PAP 42. requiring vent support. - 04/09 I/O: 2391/4965 (-5903). Wt down 23 kg since admit. k+ and Cr wnl. 04/09 CXR: atelectasis and effusion. . - cont lasix per pulm. 04/15/17 Remains intubated - Slight ST elevation noted on Telemetry - EKG now - Check troponin 04/16/16 Troponin negative - EKG show early repolarization - continue to monitor cardiac telemetry 04/17/16 Remains on the vent, 40% today. - Stable from cardiac standpoint we will continue to monitor 04/18/16 No changes to plan of care regarding cardiology - Will continue to monitor cardiac telemetry. Thank you for allowing us to participate in the care of this patient, we will follow along with you. Hospital Course Summary Disclaimer: The visit summary below is not to be considered part of the above Progress Note. Hospital Course: Assessment Respiratory insufficiency with hypoxia Sepsis secondary to pneumonia Manifestations: Tachycardia, tachypnea, leukocytosis Community-acquired pneumonia Anasarca Morbid obesity-BMI 42.0 Hyperglycemia-POA Tinea corporis Tobacco dependence 04/02/17 Hospital admission Admit to inpatient status under the care of the hospitalist service, Dr. Lewis attending. It is expected that his stay will exceed 2 overnights given his sepsis secondary to pneumonia and overall condition. SCDs and Lovenox for DVT prophylaxis Urinalysis for laboratory completeness. Repeat CBC and BMP in am to follow leukocytosis, renal function and electrolytes. Schedule echocardiogram to evaluate cardiac structure and function given his anasarca and dyspnea. Oxygen, DuoNeb treatments, Acapella, and guaifenesin for respiratory symptoms. Continue Rocephin and Zithromax initiated and the emergency room. Blood cultures were drawn prior to antibiotic initiation. RT consult tobacco cessation. Terbinafine topically for his tinea corporis Patient wishes to be a full code. Case discussed with Dr. Lewis. Case management will need to assist in finding patient a PCP. 04/04/17 12:03 Plan The patient continues to require mechanical ventilation and is on 100% FiO2 regarding his ARDS and pneumonia. Continue ventilator support - Dr. Pineda is following. His help is greatly appreciated. Continue Levaquin initiated 04/03/2017 and Rocephin initiated 04/02/2017 Continue Solu-Medrol Discussed with Dr. Pineda, will change Lovenox to prophylactic dose. Venous Doppler of the legs were negative for DVT. No signs of right heart strain on echocardiogram. Advance tube feedings Nutren luminary 1.5 to goal of 70 ML's per hour. Start free water 400 ML's every 8 hours. DC IV fluids Vishal blood pressure off of IV fluids. May need to initiate antihypertensive Start Lantus 10 units subcutaneous daily. Increase to medium dose sliding scale insulin. Continue Lasix 40 mg IV every 12. Patient is diuresing well. Check CBC and renal panel tomorrow. Chest x-ray tomorrow. Assess with Dr. Pineda, the patient's significant other, and the patient's nurse. 04/05/17 09:31 Plan The patient continues to require mechanical ventilation and is now on 95% FiO2 regarding his ARDS and pneumonia. Continue ventilator support per Dr. Pineda Continue Levaquin initiated 04/03/2017 and Rocephin initiated 04/02/2017. Continue Solu-Medrol Regarding hyperkalemia, will try to change to feeding to a renal tube feeds. Check ABG. (7.32/79/103 on 95% FiO2) Recheck basic metabolic profile later today. May need to increase fluids followed by diuresis for hyperkalemia Increase Lantus to 20 units subcutaneous daily for hyperglycemia. Increase sliding scale insulin to high dose Start Reglan and Dulcolax suppositories to stimulate GI tract. Decrease tube feed rate to 50 ML's for now. Greater than 40 minutes critical care time. 04/07/2017 Plan The patient continues to require mechanical ventilation and FiO2 100% regarding his ARDS and pneumonia. The patient has tolerated discontinuation of propofol and initiation of Versed. The patient is tolerating his tube feedings. Will advance as tolerated. Will increase free water to 200 ML's every 4 hours and decrease Lasix to 20 mg IV every 12 regarding his elated sodium. Continue to monitor blood pressure closely. Continue Levaquin initiated 04/03/2017 and Rocephin initiated 04/02/2017. Continue Solu-Medrol Regarding hyperkalemia-is resolved. Continue renal tube feeds Continue Reglan and Dulcolax suppositories to stimulate GI tract. Greater than 45 minutes of critical care time spent seeing and evaluating the patient. The patient's brother was updated. 04/08/17 09:49 Plan Overall, the patient is stable. He is diuresing well. Weight is down approximately 22 kg over the past 1 week. He has been on the ventilator for one week now. FiO2 turned down to 95% this morning. Consulted Dr. Jonhson regarding positive blood culture and antibiotic recommendations The patient continues to require mechanical ventilation regarding his ARDS and pneumonia. FiO2 down to 95% this morning The patient is tolerating his tube feedings. Will advance as tolerated to goal. Will increase free water to 250 ML's every 4 hours. Continue Lasix 20 mg IV every 12. Continue to monitor blood pressure closely. Continue Levaquin initiated 04/03/2017 and Rocephin initiated 04/02/2017. Continue Solu-Medrol and breathing treatments Regarding hyperkalemia- Continue renal tube feeds Continue Reglan and Dulcolax suppositories to stimulate GI tract. Regarding possible mild upper GI bleed, will Gastric occult NG drainage. Hold Lovenox for now. Greater than 45 minutes of critical care time spent seeing and evaluating the patient. <Ebenezer Mauricio - Last Filed: 04/21/17 14:52> Exam Vital signs: Temperature 101.5 F H 04/21/17 04:00 Pulse Rate 91 04/21/17 13:52 Respiratory Rate 28 H 04/21/17 13:52 Blood Pressure 121/77 04/21/17 08:00 Pulse Oximetry 94 04/21/17 13:52 - Urinary Catheter Management Urethral Cath placed during this visit: no Results 04/21/17 04:19 04/21/17 04:19 Cardiac Enzymes 04/21/17 Range/Units 04:19 AST 50 (17-59) U/L CBC 04/21/17 Range/Units 04:19 WBC 17.4 H (4.5-11.0) T/MM3 RBC 4.52 (4.50-5.90) M/MM3 Hgb 14.1 (13.5-17.5) GM/DL Hct 44.8 (41-53) % Plt Count 152 (130-400) T/MM3 Neut # (Auto) Not performed Lymph # (Auto) Not performed [place] # (Auto) Not performed Eos # (Auto) Not performed Baso # (Auto) Not performed Comprehensive Metabolic Panel 04/21/17 Range/Units 04:19 Sodium 140 (134-144) MEQ/L Potassium 4.2 (3.6-5) MEQ/L Chloride 101 (98-107) MEQ/L Carbon Dioxide 31 H (22-30) MEQ/L BUN 29.0 H (9-20) MG/DL Creatinine 0.6 L (0.8-1.5) MG/DL Glucose 181 H (75-110) MG/DL Calcium 8.7 (8.4-10.2) MG/DL AST 50 (17-59) U/L ALT 92 H (21-72) U/L Alkaline Phosphatase 54 (38-126) U/L Total Protein 7.0 (6.3-8.2) G/DL Albumin 3.5 (3.5-5.0) G/DL Intake and Output 04/20/17 04/21/17 04/21/17 22:59 06:59 14:59 Intake Total 1681.600 / 4527.286 4772.867 / 1801.867 778.883 / 778.883 Output Total 701 / 701 605 / 605 580 / 580 Balance 980.600 / 727.170 3646.867 / 1196.867 198.883 / 198.883 Intake: IV 1001.600 / 1001.600 941.867 / 941.867 168.883 / 168.883 Dexmedetomidine 1,000 mcg In NS 239.850 / 239.850 219.700 / 219.700 141.05 / 141.05 250ml 250 ml @ 0.2 MCG/KG/HR 7 .47 mls/hr IV .Q24H PRN Rx#: [id number] FentaNYL 1,000 mcg In Ns 80 ml 100.0 / 100.0 77.167 / 77.167 22.833 / 22.833 @ Per Protocol IV .Q0M PRN Rx#: [id number] Meropenem 1 gm In Ns 100 ml @ 100 / 100 100 / 100 200 mls/hr IV Q8H [facility] Rx#: [id number] Midazolam 100 mg In RTU-Saline 61.750 / 61.750 45 / 45 5 / 5 0 ml @ Per Protocol IV .Q0M PRN Rx#:[id number] Vancomycin 2,500 mg In NS 500ml 500 / 500 500 / 500 500 ml @ 250 mls/hr IV Q8H [facility] Rx#:[id number] Tube Feeding 430 / 430 360 / 360 300 / 300 Left Nare 430 / 430 360 / 360 300 / 300 Intake, Gastric Tube Irrigant 250 / 250 500 / 500 310 / 310 Amount Left Nare 250 / 250 500 / 500 310 / 310 Output: Urine Amount (Catheter) 701 / 701 605 / 605 580 / 580 Other: Urine Appearance Clear Clear Sediment Urine Color Light Lindsay Light Lindsay Yellow Assessment and Plan - Assessment and Plan (1) Community acquired pneumonia Current visit: No Status: Acute (2) Acute respiratory failure with hypoxia Current visit: Yes Status: Acute (3) Bradycardia Current visit: Yes Status: Acute - Attestation Attestation Narrative: 04/21/17 14:52 Recommendation After examining the patient I agree with the above assessment. I am involved in the formulation of the patient's plan of care. Hospital Course Summary Disclaimer: The visit summary below is not to be considered part of the above Progress Note.
[2017-04-18] MEDS: INSULIN GLARGINE 100unit/ml INJECTION SQ SCH (22:42)
[2017-04-19] MEDS: INSULIN ASPART 100unit/ml INJECTION SQ SCH ×5 (00:37→23:47)
[2017-04-19] MEDS: GUAIFENESIN 200mg/10ml ORAL LIQUID PO SCH ×4 (02:57→21:10)
[2017-04-19] MEDS: METOCLOPRAMIDE 10mg/2ml INJECTION IVP SCH ×4 (02:58→21:04)
[2017-04-19] MEDS: ACETAMINOPHEN 160mg/5ml ORAL LIQUID PO PRN ×2 (02:59→10:11)
[2017-04-19] MEDS: DEXMEDETOMIDINE IV PRN ×3 (03:13→23:14)
[2017-04-19] MEDS: NS IV PRN ×3 (03:13→23:14)
[2017-04-19] MEDS: FentaNYL 1,000 MCG in NS 80 ML IV PRN ×2 (03:17→14:04)
[2017-04-19] MEDS: ALBUTEROL/IPRATROPIUM 2.5mg-0.5mg/3ml NEB AEROSOL SCH ×6 (03:20→23:40)
[2017-04-19] MEDS: SODIUM CL 3% INHAL.SOLN 15ml NEB AEROSOL SCH ×2 (07:13→23:40)
[2017-04-19] MEDS: BUDESONIDE INH.SOLN 0.5mg/2ml NEB AEROSOL SCH ×2 (07:13→18:50)
[2017-04-19] MEDS: ENOXAPARIN 40 MG/0.4 ML INJECTION SQ SCH (08:42)
[2017-04-19] MEDS: PANTOPRAZOLE 40 MG INJECTION IVP SCH ×2 (08:42→21:01)
[2017-04-19] MEDS: FUROSEMIDE 20 MG/2 ML INJECTION IVP SCH ×2 (08:42→21:07)
[2017-04-19] MEDS: METHYLPREDNISOLONE SOD SUCC 40mg/ml INJECTION IVP SCH (08:42)
[2017-04-19] MEDS: NYSTATIN 500,000 units/5 ml ORAL LIQUID PO SCH ×4 (08:44→21:58)
[2017-04-19] MEDS: TERFINAFINE 1% CREAM 12 G TUBE TOP SCH ×2 (10:05→22:29)
[2017-04-19] MEDS: CHLORHEXIDINE 0.12% ORAL RINSE PO SCH ×2 (10:05→20:07)
[2017-04-19] MEDS: BISACODYL 10 MG SUPPOSITORY RECTALLY PRN (12:14)
[2017-04-19] MEDS: INSULIN ASPART 100unit/ml INJECTION SQ PRN ×3 (12:25→23:48)
--- NOTE | 2017-04-19 12:56 | Pulmonology Progress Note ---
Subjective Principal diagnosis: bradycardia Interval history: Pt currently sedated on the vent with Precedex 0.7 mcg/kg/hr, fent 100 mcg/hr and versed 5 mg/hr. No reported restlessness. Currently on vent at FIO2 55%, peep 6 and tolerating, sats 88-92%. Fever 102 this AM, WBC increased to 19.6. Rec'd tylenol. Dr Martha Johnson stopped antibiotics on Friday04/16/16. WBC's rising and now febrile. CXR looks slightly improved on the left side, overall little change, mild faint bilateral airspace opacities No diarrhea, No BM for a few days. Abd more distended today per nursing staff. Family at bedside Exam Vital signs: Temperature 99.9 F 04/19/17 12:00 Pulse Rate 84 04/19/17 12:30 Respiratory Rate 25 H 04/19/17 12:30 Blood Pressure 139/74 04/19/17 12:30 Pulse Oximetry 91 04/19/17 12:30 - Constitutional obese Comments: sedated on vent - Routine HEENT Exam Head: Present: normocephalic Eye: Absent: conjunctival icterus - Routine Neck Exam Present: supple - Routine Respiratory Exam Present: patient mechanically ventilated, rhonchi - Routine Cardiovascular Exam Present: RRR - Routine Abdominal Exam Present: distended - Routine Extremities Exam Present: edema. Absent: cyanosis, clubbing - Routine Neurological Exam awakens, no focal deficit - Urinary Catheter Management Urethral Cath placed during this visit: yes Urethral indwelling: Yes Reason for continuing: Prolonged Immobilization (remains on vent) Insertion date: 04/02/17 Insertion time: 22:20 Assessment and Plan (1) Acute respiratory failure with hypoxia Status: Acute Assessment and plan: due to: severe sepsis, ARDS - improved, pneumonia. remains dependent on mechanical vent, peep 6, Fio2 60%. He failed SBT yesterday and does not meet criteria to repeat that today CXR is stable Patient has developed a new fever 102, with increasing WBC count. Unclear source. He is off antibiotics since Friday. I recommend reculture and observe without further vent weaning at this time. stop methylprednisolone as I feel the indication for that is improved. he does have abdominal distention today and hasn't had a BM for several days. Check KUB. Continue TF and free water Since he is now on relatively lower peep/Fio2, we need to start considering trach and peg as the next step. If he does not show drastic improvements by Friday, I would suggest talking with family and surgery about getting this done. Discussed with family, nursing and Dr Plata at bedside. Current Visit: Yes - Assessment and Plan Acute Hypoxic hypercapnic Respiratory Failure CAP Pneumonia Sepsis/ARDS Likely COPD Likely GLADYS - will need OP PSG Elevated LFT's HyperKalemia Fluid overload Plan: Pt currently on vent settings f22, Vt 500, peep 6, 50%, sats 91, was at 40% but with waking up overnoc his FIo2 was increased. Will attempt SBT today, precedex ordered, CXR has improved congestion throughout, slight R/L side atelectasis noted, cont cardiomegaly. On BT's with pulmicort BID, a/a q4hr and 3% q 6 solumedrol 40 daily. Currently on lasix 20 BID with -700ml/24hr, still with BLE edema. S/p levaquin, cefepime, vanco and diflucan, has been on Tx for 14 days for pna per ID, WBC 12.2>15.1>19, febrile 100.4 this am, bands decreased 9>3, follow, procal neg on 04/16, sputum NTD from 04/13, BC NTD. Cont to victor m TF, Liver enzymes stable, Cont to follow closely. - Time Spent With Patient Total time spent is greater than 50% in coordination of care (as documented) at patient's floor/unit and/or counseling patient: 25 - 35 minutes
[2017-04-19] MEDS: BENZOCAINE 20% ORAL GEL (Max Strength) MM PRN (14:05)
--- NOTE | 2017-04-19 14:34 | Progress Note ---
- Date 04/19/17 Subjective: On vent. Sedated on Precedex, Fentanyl, and Versed. He did not do well on SBT yesterday. Has had fever of 102.4 earlier, and there are no plans to wean. Last recorded BM was 04/17. Family at bedside. Objective Vital signs: Temperature 99.9 F 04/19/17 12:00 Pulse Rate 84 04/19/17 12:30 Respiratory Rate 25 H 04/19/17 12:30 Blood Pressure 139/74 04/19/17 12:30 Pulse Oximetry 91 04/19/17 12:30 Rhythm: Normal Sinus Rhythm Height/Weight/BMI: Height 5 ft 11 in Weight 138.4 kg Body Mass Index 51.2 - Constitutional Present: somnolent - Routine HEENT Exam Head: Present: normocephalic, atraumatic Eye: Present: EOMI, PERRL - Routine Respiratory Exam Present: patient mechanically ventilated - Routine Cardiovascular Exam Present: RRR, no murmur - Routine Abdominal Exam Present: soft, normoactive bowel sounds, non tender, distended - Routine Extremities Exam Present: edema Results - Labs CBC & Chem 7: 04/18/17 04:19 04/18/17 04:19 Microbiology Results: Microbiology 04/19/17 13:26 Port/Picc Blood Culture - Preliminary Culture Initiated - Results Pending 04/19/17 13:37 Peripheral/Iv Start Blood Culture - Preliminary Culture Initiated - Results Pending 04/13/17 14:50 Sputum, Suctioned Gram Stain - Final 04/13/17 14:50 Sputum, Suctioned Sputum Culture - Final Normal Respiratory Jesus Present 04/09/17 10:00 Port/Picc Blood Culture - Final No Growth After 5 Days 04/09/17 09:24 Port/Picc Blood Culture - Final No Growth After 5 Days 04/06/17 10:37 Port/Picc Gram Stain - Final 04/06/17 10:37 Port/Picc Blood Culture - Final Corynebacterium species 04/06/17 11:03 Port/Picc Blood Culture - Final No Growth After 5 Days 04/07/17 08:43 Nasopahrynx Gram Stain - Final 04/07/17 08:43 Nasopahrynx Nasopharyngeal Culture - Final Normal Respiratory Jesus 04/03/17 11:30 Sputum, Suctioned Gram Stain - Final 04/03/17 11:30 Sputum, Suctioned Sputum Culture - Final Normal Respiratory Jesus 04/03/17 10:38 Urine Legionella Urinary Antigen - Final 04/03/17 10:38 Urine Streptococcus pneumoniae Antigen (M - Final Assessment and Plan (1) Community acquired pneumonia Current visit: No Status: Acute Assessment and Plan: Assessment Acute hypoxic and hypercarbic respiratory failure-requiring mechanical ventilation. Intubated on 04/02/2017. Versed and fentanyl for sedation ARDS Community - acquired pneumonia-severe, requiring intubation. Levaquin initiated 04/03/2017 and Rocephin initiated 04/02/2017. Changed Rocephin to cefepime on . Sepsis secondary to pneumonia on admission Manifestations: Tachycardia, tachypnea, leukocytosis. Lactate normal on admission CODE BLUE/bradycardia versus short lasting asystole on 04/06/2017-patient received chest compressions 3 - EKG and troponin post event were normal Elevated d-dimer 555 - Lovenox therapeutic dose initiated 04/06/2017. Blood culture one of 2 on 04/06/2027 positive for corynebacterium -discussed with Dr. Johnson. This is most likely contaminant. Anasarca - improving; significant decrease of fluid since admit Echocardiogram revealed normal EF, left ventricular hypertrophy, PA pressure 41 with mild pulmonary hypertension (echo 04/06/2017 unchanged on recheck)-BNP has been normal. Diabetes Mellitus Type 2 - A1C 7.1 on admission (new diagnosis)-on Lantus, scheduled NovoLog and sliding scale insulin Possible COPD Probable obstructive sleep apnea Chronic back pain with high-dose ibuprofen and Tylenol use prior to admission Tinea corporis/ringworm? Tobacco dependence Hyperkalemia with potassium up to 5.5 of undetermined etiology (Not POA). Possible sinusitis right nears with copious thick nasal secretions - C/S showing normal jesus Mild hypernatremia (Not POA) Morbid obesity-BMI 42.0 Plan Observing off antibiotics. Recheck CBC. Steroids DC'd. Febrile today. Repeat cx. Continue mechanical ventilation for respiratory support. FIO2 needs decreasing - pulm holding off on weaning d/t fever. Solu-Medrol at 40mg IV daily. Continue neb treatments and pulmonary toilet. Nutritional support with DH tube feeding. Monitor potassium and sodium. TF goal is 65 ml/hr. Blood sugars may improve off solu-medrol. Monitor. Continuing Lantus, scheduled Novolog and sliding scale. Lasix at to 20mg IV BID due to edema to legs. Abdomen slightly distended. Bowels have slowed down on lower dose of Reglan. Will plan for daily suppository and continue MoM. KUB ordered. Case discussed with CCU nursing, Dr. Pineda, and family. - Physician Narrative Narrative: Date: 04/19/17 Time: 1431 Hospital Course Summary Disclaimer: The visit summary below is not to be considered part of the above Progress Note. Hospital Course: Assessment Respiratory insufficiency with hypoxia Sepsis secondary to pneumonia Manifestations: Tachycardia, tachypnea, leukocytosis Community-acquired pneumonia Anasarca Morbid obesity-BMI 42.0 Hyperglycemia-POA Tinea corporis Tobacco dependence 04/02/17 Hospital admission Admit to inpatient status under the care of the hospitalist service, Dr. Lewis attending. It is expected that his stay will exceed 2 overnights given his sepsis secondary to pneumonia and overall condition. SCDs and Lovenox for DVT prophylaxis Urinalysis for laboratory completeness. Repeat CBC and BMP in am to follow leukocytosis, renal function and electrolytes. Schedule echocardiogram to evaluate cardiac structure and function given his anasarca and dyspnea. Oxygen, DuoNeb treatments, Acapella, and guaifenesin for respiratory symptoms. Continue Rocephin and Zithromax initiated and the emergency room. Blood cultures were drawn prior to antibiotic initiation. RT consult tobacco cessation. Terbinafine topically for his tinea corporis Patient wishes to be a full code. Case discussed with Dr. Lewis. Case management will need to assist in finding patient a PCP. 04/04/17 12:03 Plan The patient continues to require mechanical ventilation and is on 100% FiO2 regarding his ARDS and pneumonia. Continue ventilator support - Dr. Pineda is following. His help is greatly appreciated. Continue Levaquin initiated 04/03/2017 and Rocephin initiated 04/02/2017 Continue Solu-Medrol Discussed with Dr. Pineda, will change Lovenox to prophylactic dose. Venous Doppler of the legs were negative for DVT. No signs of right heart strain on echocardiogram. Advance tube feedings Nutren luminary 1.5 to goal of 70 ML's per hour. Start free water 400 ML's every 8 hours. DC IV fluids Vishal blood pressure off of IV fluids. May need to initiate antihypertensive Start Lantus 10 units subcutaneous daily. Increase to medium dose sliding scale insulin. Continue Lasix 40 mg IV every 12. Patient is diuresing well. Check CBC and renal panel tomorrow. Chest x-ray tomorrow. Assess with Dr. Pineda, the patient's significant other, and the patient's nurse. 04/05/17 09:31 Plan The patient continues to require mechanical ventilation and is now on 95% FiO2 regarding his ARDS and pneumonia. Continue ventilator support per Dr. Pineda Continue Levaquin initiated 04/03/2017 and Rocephin initiated 04/02/2017. Continue Solu-Medrol Regarding hyperkalemia, will try to change to feeding to a renal tube feeds. Check ABG. (7.32/79/103 on 95% FiO2) Recheck basic metabolic profile later today. May need to increase fluids followed by diuresis for hyperkalemia Increase Lantus to 20 units subcutaneous daily for hyperglycemia. Increase sliding scale insulin to high dose Start Reglan and Dulcolax suppositories to stimulate GI tract. Decrease tube feed rate to 50 ML's for now. Greater than 40 minutes critical care time. 04/07/2017 Plan The patient continues to require mechanical ventilation and FiO2 100% regarding his ARDS and pneumonia. The patient has tolerated discontinuation of propofol and initiation of Versed. The patient is tolerating his tube feedings. Will advance as tolerated. Will increase free water to 200 ML's every 4 hours and decrease Lasix to 20 mg IV every 12 regarding his elated sodium. Continue to monitor blood pressure closely. Continue Levaquin initiated 04/03/2017 and Rocephin initiated 04/02/2017. Continue Solu-Medrol Regarding hyperkalemia-is resolved. Continue renal tube feeds Continue Reglan and Dulcolax suppositories to stimulate GI tract. Greater than 45 minutes of critical care time spent seeing and evaluating the patient. The patient's brother was updated. 04/08/17 09:49 Plan Overall, the patient is stable. He is diuresing well. Weight is down approximately 22 kg over the past 1 week. He has been on the ventilator for one week now. FiO2 turned down to 95% this morning. Consulted Dr. Johnson regarding positive blood culture and antibiotic recommendations The patient continues to require mechanical ventilation regarding his ARDS and pneumonia. FiO2 down to 95% this morning The patient is tolerating his tube feedings. Will advance as tolerated to goal. Will increase free water to 250 ML's every 4 hours. Continue Lasix 20 mg IV every 12. Continue to monitor blood pressure closely. Continue Levaquin initiated 04/03/2017 and Rocephin initiated 04/02/2017. Continue Solu-Medrol and breathing treatments Regarding hyperkalemia- Continue renal tube feeds Continue Reglan and Dulcolax suppositories to stimulate GI tract. Regarding possible mild upper GI bleed, will Gastric occult NG drainage. Hold Lovenox for now. Greater than 45 minutes of critical care time spent seeing and evaluating the patient. 04/09/17 Overall, the patient is improving. FiO2 is now down to 70%. The patient appears to be nearly euvolemic at this time. We'll continue Lasix. Weight is down approximately 22 kg over the past [address] Johnson recommends approximately 10 days of broad-spectrum antibiotics for his pneumonia. She recommended discontinuation of vancomycin today with corynebacterium found in one of 2 blood cultures on April 06 most likely being a contaminant. Currently at goal rate on tube feedings. He is on a renal formulation because of hyperkalemia. May need to increase free water further if sodium does not improving. Continue Levaquin initiated 04/03/2017 and Rocephin initiated 04/02/2017. Rocephin discontinued on 04/06/2017 and cefepime started. Vancomycin started and discontinued on 04/09/2017 Continue Solu-Medrol and breathing treatments Add MiraLAX for constipation Continue Lovenox for DVT prophylaxis (gastric occult from NG drainage was negative) 04/10/17 Debbie Continue with levofloxacin and cefepime for antimicrobial coverage - ID recommending an approximate 10 day course. Will continue with Solu-Medrol at 40mg IV q 8 hours -started on 03/26/17. Potentially could start to decrease. Continue neb treatments and pulmonary toilet. Nutritional support with DH tube feeding. Potassium normal. LFT with gradual increase-potential fatty liver secondary to continuous TF. Continue Lasix. Weight is down approximately 22 kg over the past 1 week. Renal status stable. Blood sugars showing persistent elevation in the low to mid 200's. Will increase Lantus to 34 units at night. 04/11/17 Continue with levofloxacin and cefepime for antimicrobial coverage - ID recommending an approximate 10 day course. With increased temp, persistent leukocytosis, steroid and antibiotic use will start Diflucan 200mg IV daily. Continue mechanical ventilation for respiratory support. Pulm decreased Solu-Medrol to 40mg IV q 12 hours. Continue neb treatments and pulmonary toilet. Slowly able to wean down FIO2. Nutritional support with DH tube feeding. Continue Lasix 20 mg IV BID. Creatinine and BP stable. Potassium with increase to 5.4 this am. Blood sugars still with elevations - will continue current regimen, watching for decrease with decreased Solu-Medrol. 04/12/17 Continue with levofloxacin and cefepime for antimicrobial coverage - ID recommending an approximate 10 day course. Diflucan 200mg IV daily started 04/11/17. Continue mechanical ventilation for respiratory support - Solu-Medrol at 40mg IV q 12 hours. O2 needs increased today - likely mucous plugging. Creatinine with increase to 1.1. Edema much improved. Will decrease Lasix to 20mg daily to minimize overdiuresis. Blood sugars still with elevations - Increase Lantus to 38 units at HS. 04/13/17 Continue with levofloxacin and cefepime for antimicrobial coverage - ID recommending an approximate 10 day course. Diflucan 200mg IV daily started 04/11/17. Vancomycin started on 04/12/17 secondary to temp elevations. Continue mechanical ventilation for respiratory support. Increasing FIO2 - needing 100%. Sputum culture ordered by Dr Pineda. Solu-Medrol at 40mg IV q 12 hours. Continue neb treatments and pulmonary toilet. Nutritional support with DH tube feeding. Creatinine did decrease to 0.8. With increasing oxygen needs and increased intake as compared to output past 2 days will give 20mg IV Lasix. Blood sugars still with elevations - Increase Lantus to 42 units at HS. 04/14/17 Continue with levofloxacin and cefepime for antimicrobial coverage Diflucan 200mg IV daily started 04/11/17. Vancomycin started on 04/12/17 secondary to temp elevations. Continue mechanical ventilation for respiratory support. Sputum culture ordered 04/13 with results pending. Solu-Medrol at 40mg IV q 12 hours. Nutritional support with DH tube feeding. Potassium and sodium normal. Blood sugars still with elevations - Increase Lantus to 46 units at HS. Doppler legs pending - ? DVT as more pedal edema present. 04/15/17 Continue with levofloxacin and cefepime for antimicrobial coverage - ID recommending an approximate 10 day course. Diflucan 200mg IV daily started 04/11/17. Vancomycin started on 04/12/17 secondary to temp elevations. Continue mechanical ventilation for respiratory support. FIO2 needs decreasing - pulm weaning. Secretions decreasing. Sputum culture ordered 04/13 with normal respiratory jesus. Solu-Medrol at 40mg IV q 12 hours. Continue neb treatments and pulmonary toilet. Nutritional support with DH tube feeding. Potassium and sodium normal. Blood sugars still with elevations - Increase Lantus to 50 units at HS. Increase Lasix back to 20mg IV BID due to increasing edema to legs. Doppler legs from 04/14/17 showing no DVT - continue Lovenox 40mg SQ daily and SCD. 04/16/17 10:42 ID recommending stopping antibiotics and observing. Continue mechanical ventilation for respiratory support. FIO2 needs decreasing - pulm weaning. Secretions decreasing. Solu-Medrol at 40mg IV q 12 hours. Continue neb treatments and pulmonary toilet. Nutritional support with DH tube feeding. Potassium and sodium normal. Blood sugars still with elevations - Increase Lantus to 50 units at HS. Increase Lasix back to 20mg IV BID due to increasing edema to legs. Doppler legs from 04/14/17 showing no DVT - continue Lovenox 40mg SQ daily and SCD. Condition critical, showing improvement from the weekend. Continued CCU care needed secondary to respiratory failure and mechanical ventilation. 04/19 Observing off antibiotics. Recheck CBC. Steroids DC'd. Febrile today. Repeat cx. Continue mechanical ventilation for respiratory support. FIO2 needs decreasing - pulm holding off on weaning d/t fever. Solu-Medrol at 40mg IV daily. Continue neb treatments and pulmonary toilet. Nutritional support with DH tube feeding. Monitor potassium and sodium. TF goal is 65 ml/hr. Blood sugars may improve off solu-medrol. Monitor. Continuing Lantus, scheduled Novolog and sliding scale. Lasix at to 20mg IV BID due to edema to legs. Abdomen slightly distended. Bowels have slowed down on lower dose of Reglan. Will plan for daily suppository and continue MoM. Case discussed with CCU nursing, Dr. Pineda, and family.
[2017-04-19] MEDS: ALBUTEROL/IPRATROPIUM 2.5mg-0.5mg/3ml NEB AEROSOL PRN (18:50)
[2017-04-19] MEDS: RTU SALINE IV PRN (20:41)
[2017-04-19] MEDS: MIDAZOLAM IV PRN (20:41)
[2017-04-19] MEDS: INSULIN GLARGINE 100unit/ml INJECTION SQ SCH (21:05)
[2017-04-20] MEDS: FentaNYL 1,000 MCG in NS 80 ML IV PRN ×3 (00:23→22:17)
[2017-04-20] MEDS: ALBUTEROL/IPRATROPIUM 2.5mg-0.5mg/3ml NEB AEROSOL SCH ×4 (03:40→22:00)
[2017-04-20] MEDS: METOCLOPRAMIDE 10mg/2ml INJECTION IVP SCH ×4 (04:59→20:29)
[2017-04-20] MEDS: GUAIFENESIN 200mg/10ml ORAL LIQUID PO SCH ×4 (05:03→20:18)
[2017-04-20] MEDS: INSULIN ASPART 100unit/ml INJECTION SQ PRN ×2 (05:17→18:25)
[2017-04-20] MEDS: INSULIN ASPART 100unit/ml INJECTION SQ SCH ×4 (05:17→18:24)
[2017-04-20] MEDS: BUDESONIDE INH.SOLN 0.5mg/2ml NEB AEROSOL SCH ×2 (07:36→19:40)
[2017-04-20] MEDS: NS IV PRN ×2 (08:22→17:01)
[2017-04-20] MEDS: DEXMEDETOMIDINE IV PRN ×2 (08:22→17:01)
[2017-04-20] MEDS: ENOXAPARIN 40 MG/0.4 ML INJECTION SQ SCH (09:13)
[2017-04-20] MEDS: PANTOPRAZOLE 40 MG INJECTION IVP SCH ×2 (09:13→20:29)
[2017-04-20] MEDS: FUROSEMIDE 20 MG/2 ML INJECTION IVP SCH ×2 (09:13→20:39)
[2017-04-20] MEDS: NYSTATIN 500,000 units/5 ml ORAL LIQUID PO SCH ×2 (09:14→13:13)
[2017-04-20] MEDS: CHLORHEXIDINE 0.12% ORAL RINSE PO SCH ×2 (09:23→20:40)
[2017-04-20] MEDS: BISACODYL 10 MG SUPPOSITORY RECTALLY SCH (09:24)
--- NOTE | 2017-04-20 09:55 | XRay Report ---
Indication: abdominal distention, tube placement PROCEDURE: XR abdomen 1V: Encounter: Initial Comparison: April 06, 2017 Findings: Dobbhoff tube remains in place with the tip projecting over the fourth portion of the duodenum. Nasogastric tube tip projecting over the stomach. Nonobstructive bowel gas pattern with scattered colonic gas present. Impression: Tubes as above. There is a preliminary report by [facility]. .
--- NOTE | 2017-04-20 10:01 | XRay Report ---
Indication: f/u, intubated PROCEDURE: XR chest 1V: Encounter: Initial Comparison: April 19, 2017 Findings: Support devices are stable. Continued airspace consolidation in the left midlung appears slightly worsened. No pneumothorax. Small pleural effusions. Heart size and mediastinal contours are stable. Impression: Slight worsening in left-sided airspace opacities. .
--- NOTE | 2017-04-20 10:12 | XRay Report ---
Indication: f/u, intubated PROCEDURE: XR chest 1V: Encounter: Initial Comparison: April 18, 2017 Findings: Support devices are stable. Lungs are unchanged with patchy bilateral infiltrates greater on the left. No gross pneumothorax. Heart size and mediastinal contours are stable. Impression: No significant change. .
--- NOTE | 2017-04-20 10:30 | Pulmonology Progress Note ---
Subjective Principal diagnosis: bradycardia Interval history: Pt currently sedated on the vent with Precedex 0.8 mcg/kg/hr, fent 100 mcg/hr and versed 5 mg/hr. Pt wakes to voice and following commands although very weak. On vent with peep 8, 65%, peep turned up this am at 0800, sats 88%, may need to increase Fio2. Exam Vital signs: Temperature 99.8 F 04/20/17 08:15 Pulse Rate 83 04/20/17 10:00 Respiratory Rate 24 04/20/17 10:00 Blood Pressure 114/63 04/20/17 10:00 Pulse Oximetry 89 L 04/20/17 10:00 - Constitutional no acute distress, morbidly obese - Routine HEENT Exam Head: Present: normocephalic, atraumatic Eye: Present: EOMI, PERRL ENT: Present: mucous membranes moist - Routine Neck Exam Present: supple, full ROM - Routine Respiratory Exam Present: patient mechanically ventilated, rhonchi - Routine Cardiovascular Exam Present: RRR, S1, S2, no murmur - Routine Abdominal Exam Present: soft, distended, firm Comments: hypoactive - Routine Extremities Exam Present: edema, non tender, full ROM Comments: passive - Routine Back/Spine/Pelvis Exam Back/Spine: Present: full ROM - Routine Skin Exam Present: intact, dry - Routine Neurological Exam Present: alert following commands - Routine Psychiatric Exam Present: unable to assess - Urinary Catheter Management Urethral Cath placed during this visit: yes Urethral indwelling: Yes Reason for continuing: Accurate I&O/Aggressive Diuresis Insertion date: 04/02/17 Insertion time: 22:20 Assessment and Plan - Assessment and Plan Acute Hypoxic hypercapnic Respiratory Failure CAP Pneumonia Sepsis/ARDS Likely COPD Likely GLADYS - will need OP PSG Elevated LFT's HyperKalemia Fluid overload Plan: Pt currently on vent settings f20, Vt 500, peep 8, 65%, sats 88%, increased Fio2 to 70%. Failed SBT on Friday with increased O2 needs and RSBI 100. On precedex, fent and versed for sedation, wakes and follows commands. CXR with increased L side infiltrates, sputum many wbc, GPC, GPR, WBC 18, febrile this am 100.4. BC contaminate. On BT's with pulmicort BID, a/a q4hr and 3% q 6. Currently on lasix 20 BID, still with BLE edema improving though. S/p levaquin, cefepime, vanco and diflucan, has been on Tx for 14 days for pna per ID, likely with new pna with fevers and increase WBC and CXR change. Will restart vanco, cefepime. TF on hold due to high residuals, per primary. Cont to follow closely. - Time Spent With Patient Total time spent is greater than 50% in coordination of care (as documented) at patient's floor/unit and/or counseling patient: 25 - 35 minutes
[2017-04-20] MEDS ORDERED: VANCOMYCIN 2,500 MG in NS 500ml 500 ML IV ONE (10:43)
[2017-04-20] MEDS ORDERED: VANCOMYCIN - PHARMACY CONSULT MC ONE (10:47)
[2017-04-20] MEDS: TERFINAFINE 1% CREAM 12 G TUBE TOP SCH ×2 (11:06→20:40)
[2017-04-20] MEDS: MEROPENEM 1 GM in NS 100 ML IV SCH ×2 (11:22→19:56)
--- NOTE | 2017-04-20 11:43 | Progress Note ---
- Date 04/20/17 Subjective: Patient on vent and sedated with Precedex, Fentanyl, Versed. Able to follow commands at times and responded to some of his brother's questions. Brother says patient answered no when asked if he was having abdominal pain. Has been febrile this AM. O2 sats were in 80s and FIO2 and PEEP increased. Patient had 2 stools yesterday but has increased distention and had 350cc residual. Objective Vital signs: Temperature 101.3 F H 04/20/17 11:29 Pulse Rate 83 04/20/17 11:29 Respiratory Rate 20 04/20/17 11:29 Blood Pressure 100/58 04/20/17 11:30 Pulse Oximetry 90 04/20/17 11:29 Rhythm: Normal Sinus Rhythm Height/Weight/BMI: Height 5 ft 11 in Weight 136.4 kg Body Mass Index 51.2 - Constitutional Present: no acute distress - Routine HEENT Exam Head: Present: normocephalic, atraumatic Eye: Present: EOMI, PERRL - Routine Respiratory Exam Present: patient mechanically ventilated, rhonchi - Routine Cardiovascular Exam Present: RRR, no murmur - Routine Abdominal Exam Present: non tender, distended - Routine Neurological Exam Present: moving all extremities Results - Labs CBC & Chem 7: 04/20/17 08:41 04/20/17 08:41 Microbiology Results: Microbiology 04/19/17 15:45 Sputum, Suctioned Gram Stain - Final 04/19/17 15:45 Sputum, Suctioned Sputum Culture - Preliminary Early growth 04/19/17 13:26 Port/Picc Gram Stain - Final 04/19/17 13:26 Port/Picc Blood Culture - Preliminary Coag negative Staphylococcus 04/19/17 13:37 Peripheral/Iv Start Blood Culture - Preliminary Culture Initiated - Results Pending 04/13/17 14:50 Sputum, Suctioned Gram Stain - Final 04/13/17 14:50 Sputum, Suctioned Sputum Culture - Final Normal Respiratory Jesus Present 04/09/17 10:00 Port/Picc Blood Culture - Final No Growth After 5 Days 04/09/17 09:24 Port/Picc Blood Culture - Final No Growth After 5 Days 04/06/17 10:37 Port/Picc Gram Stain - Final 04/06/17 10:37 Port/Picc Blood Culture - Final Corynebacterium species 04/06/17 11:03 Port/Picc Blood Culture - Final No Growth After 5 Days 04/07/17 08:43 Nasopahrynx Gram Stain - Final 04/07/17 08:43 Nasopahrynx Nasopharyngeal Culture - Final Normal Respiratory Jesus 04/03/17 11:30 Sputum, Suctioned Gram Stain - Final 04/03/17 11:30 Sputum, Suctioned Sputum Culture - Final Normal Respiratory Jesus 04/03/17 10:38 Urine Legionella Urinary Antigen - Final 04/03/17 10:38 Urine Streptococcus pneumoniae Antigen (M - Final Assessment and Plan (1) Community acquired pneumonia Current visit: No Status: Acute Assessment and Plan: Assessment Acute hypoxic and hypercarbic respiratory failure-requiring mechanical ventilation. Intubated on 04/02/2017. Versed and fentanyl for sedation ARDS Community - acquired pneumonia-severe, requiring intubation. Levaquin initiated 04/03/2017 and Rocephin initiated 04/02/2017. Changed Rocephin to cefepime on . Sepsis secondary to pneumonia on admission Manifestations: Tachycardia, tachypnea, leukocytosis. Lactate normal on admission CODE BLUE/bradycardia versus short lasting asystole on 04/06/2017-patient received chest compressions 3 - EKG and troponin post event were normal Elevated d-dimer 555 - Lovenox therapeutic dose initiated 04/06/2017. Blood culture one of 2 on 04/06/2027 positive for corynebacterium -discussed with Dr. Johnson. This is most likely contaminant. Anasarca - improving; significant decrease of fluid since admit Echocardiogram revealed normal EF, left ventricular hypertrophy, PA pressure 41 with mild pulmonary hypertension (echo 04/06/2017 unchanged on recheck)-BNP has been normal. Diabetes Mellitus Type 2 - A1C 7.1 on admission (new diagnosis)-on Lantus, scheduled NovoLog and sliding scale insulin Possible COPD Probable obstructive sleep apnea Chronic back pain with high-dose ibuprofen and Tylenol use prior to admission Tinea corporis/ringworm? Tobacco dependence Hyperkalemia with potassium up to 5.5 of undetermined etiology (Not POA). Possible sinusitis right nears with copious thick nasal secretions - C/S showing normal jesus Mild hypernatremia (Not POA) Morbid obesity-BMI 42.0 Plan Vanco and cefepime restarted for fever, suspecting new pneumonia. Continue mechanical ventilation for respiratory support. FIO2 needs increasing, fever, pneumonia - pulm holding off on weaning. Solu-Medrol DC'd 04/20. Continue neb treatments and pulmonary toilet. Blood sugars trending down off solu-medrol. Monitor. Continuing Lantus, scheduled Novolog and sliding scale. Nutritional support with DH tube feeding. Monitor potassium and sodium. TF goal is 65 ml/hr. Lasix at to 20mg IV BID due to edema to legs. Abdomen slightly distended. Bowels have slowed down on lower dose of Reglan again, will increase to 10 mg iv q6 and monitor. Daily suppository and continue MoM. KUB does not show obstruction. Pharmacy out of nystatin s&s for thrush. Start Diflucan Case discussed with CCU nursing and family. - Physician Narrative Narrative: Date: 04/20/17 Time: 1139 Hospital Course Summary Disclaimer: The visit summary below is not to be considered part of the above Progress Note. Hospital Course: Assessment Respiratory insufficiency with hypoxia Sepsis secondary to pneumonia Manifestations: Tachycardia, tachypnea, leukocytosis Community-acquired pneumonia Anasarca Morbid obesity-BMI 42.0 Hyperglycemia-POA Tinea corporis Tobacco dependence 04/02/17 Hospital admission Admit to inpatient status under the care of the hospitalist service, Dr. Lewis attending. It is expected that his stay will exceed 2 overnights given his sepsis secondary to pneumonia and overall condition. SCDs and Lovenox for DVT prophylaxis Urinalysis for laboratory completeness. Repeat CBC and BMP in am to follow leukocytosis, renal function and electrolytes. Schedule echocardiogram to evaluate cardiac structure and function given his anasarca and dyspnea. Oxygen, DuoNeb treatments, Acapella, and guaifenesin for respiratory symptoms. Continue Rocephin and Zithromax initiated and the emergency room. Blood cultures were drawn prior to antibiotic initiation. RT consult tobacco cessation. Terbinafine topically for his tinea corporis Patient wishes to be a full code. Case discussed with Dr. Lewis. Case management will need to assist in finding patient a PCP. 04/04/17 12:03 Plan The patient continues to require mechanical ventilation and is on 100% FiO2 regarding his ARDS and pneumonia. Continue ventilator support - Dr. Pineda is following. His help is greatly appreciated. Continue Levaquin initiated 04/03/2017 and Rocephin initiated 04/02/2017 Continue Solu-Medrol Discussed with Dr. Pineda, will change Lovenox to prophylactic dose. Venous Doppler of the legs were negative for DVT. No signs of right heart strain on echocardiogram. Advance tube feedings Nutren luminary 1.5 to goal of 70 ML's per hour. Start free water 400 ML's every 8 hours. DC IV fluids Vishal blood pressure off of IV fluids. May need to initiate antihypertensive Start Lantus 10 units subcutaneous daily. Increase to medium dose sliding scale insulin. Continue Lasix 40 mg IV every 12. Patient is diuresing well. Check CBC and renal panel tomorrow. Chest x-ray tomorrow. Assess with Dr. Pineda, the patient's significant other, and the patient's nurse. 04/05/17 09:31 Plan The patient continues to require mechanical ventilation and is now on 95% FiO2 regarding his ARDS and pneumonia. Continue ventilator support per Dr. Pineda Continue Levaquin initiated 04/03/2017 and Rocephin initiated 04/02/2017. Continue Solu-Medrol Regarding hyperkalemia, will try to change to feeding to a renal tube feeds. Check ABG. (7.32/79/103 on 95% FiO2) Recheck basic metabolic profile later today. May need to increase fluids followed by diuresis for hyperkalemia Increase Lantus to 20 units subcutaneous daily for hyperglycemia. Increase sliding scale insulin to high dose Start Reglan and Dulcolax suppositories to stimulate GI tract. Decrease tube feed rate to 50 ML's for now. Greater than 40 minutes critical care time. 04/07/2017 Plan The patient continues to require mechanical ventilation and FiO2 100% regarding his ARDS and pneumonia. The patient has tolerated discontinuation of propofol and initiation of Versed. The patient is tolerating his tube feedings. Will advance as tolerated. Will increase free water to 200 ML's every 4 hours and decrease Lasix to 20 mg IV every 12 regarding his elated sodium. Continue to monitor blood pressure closely. Continue Levaquin initiated 04/03/2017 and Rocephin initiated 04/02/2017. Continue Solu-Medrol Regarding hyperkalemia-is resolved. Continue renal tube feeds Continue Reglan and Dulcolax suppositories to stimulate GI tract. Greater than 45 minutes of critical care time spent seeing and evaluating the patient. The patient's brother was updated. 04/08/17 09:49 Plan Overall, the patient is stable. He is diuresing well. Weight is down approximately 22 kg over the past 1 week. He has been on the ventilator for one week now. FiO2 turned down to 95% this morning. Consulted Dr. Johnson regarding positive blood culture and antibiotic recommendations The patient continues to require mechanical ventilation regarding his ARDS and pneumonia. FiO2 down to 95% this morning The patient is tolerating his tube feedings. Will advance as tolerated to goal. Will increase free water to 250 ML's every 4 hours. Continue Lasix 20 mg IV every 12. Continue to monitor blood pressure closely. Continue Levaquin initiated 04/03/2017 and Rocephin initiated 04/02/2017. Continue Solu-Medrol and breathing treatments Regarding hyperkalemia- Continue renal tube feeds Continue Reglan and Dulcolax suppositories to stimulate GI tract. Regarding possible mild upper GI bleed, will Gastric occult NG drainage. Hold Lovenox for now. Greater than 45 minutes of critical care time spent seeing and evaluating the patient. 04/09/17 Overall, the patient is improving. FiO2 is now down to 70%. The patient appears to be nearly euvolemic at this time. We'll continue Lasix. Weight is down approximately 22 kg over the past [address] Johnson recommends approximately 10 days of broad-spectrum antibiotics for his pneumonia. She recommended discontinuation of vancomycin today with corynebacterium found in one of 2 blood cultures on April 06 most likely being a contaminant. Currently at goal rate on tube feedings. He is on a renal formulation because of hyperkalemia. May need to increase free water further if sodium does not improving. Continue Levaquin initiated 04/03/2017 and Rocephin initiated 04/02/2017. Rocephin discontinued on 04/06/2017 and cefepime started. Vancomycin started and discontinued on 04/09/2017 Continue Solu-Medrol and breathing treatments Add MiraLAX for constipation Continue Lovenox for DVT prophylaxis (gastric occult from NG drainage was negative) 04/10/17 Debbie Continue with levofloxacin and cefepime for antimicrobial coverage - ID recommending an approximate 10 day course. Will continue with Solu-Medrol at 40mg IV q 8 hours -started on 03/26/17. Potentially could start to decrease. Continue neb treatments and pulmonary toilet. Nutritional support with DH tube feeding. Potassium normal. LFT with gradual increase-potential fatty liver secondary to continuous TF. Continue Lasix. Weight is down approximately 22 kg over the past 1 week. Renal status stable. Blood sugars showing persistent elevation in the low to mid 200's. Will increase Lantus to 34 units at night. 04/11/17 Continue with levofloxacin and cefepime for antimicrobial coverage - ID recommending an approximate 10 day course. With increased temp, persistent leukocytosis, steroid and antibiotic use will start Diflucan 200mg IV daily. Continue mechanical ventilation for respiratory support. Pulm decreased Solu-Medrol to 40mg IV q 12 hours. Continue neb treatments and pulmonary toilet. Slowly able to wean down FIO2. Nutritional support with DH tube feeding. Continue Lasix 20 mg IV BID. Creatinine and BP stable. Potassium with increase to 5.4 this am. Blood sugars still with elevations - will continue current regimen, watching for decrease with decreased Solu-Medrol. 04/12/17 Continue with levofloxacin and cefepime for antimicrobial coverage - ID recommending an approximate 10 day course. Diflucan 200mg IV daily started 04/11/17. Continue mechanical ventilation for respiratory support - Solu-Medrol at 40mg IV q 12 hours. O2 needs increased today - likely mucous plugging. Creatinine with increase to 1.1. Edema much improved. Will decrease Lasix to 20mg daily to minimize overdiuresis. Blood sugars still with elevations - Increase Lantus to 38 units at HS. 04/13/17 Continue with levofloxacin and cefepime for antimicrobial coverage - ID recommending an approximate 10 day course. Diflucan 200mg IV daily started 04/11/17. Vancomycin started on 04/12/17 secondary to temp elevations. Continue mechanical ventilation for respiratory support. Increasing FIO2 - needing 100%. Sputum culture ordered by Dr Pineda. Solu-Medrol at 40mg IV q 12 hours. Continue neb treatments and pulmonary toilet. Nutritional support with DH tube feeding. Creatinine did decrease to 0.8. With increasing oxygen needs and increased intake as compared to output past 2 days will give 20mg IV Lasix. Blood sugars still with elevations - Increase Lantus to 42 units at HS. 04/14/17 Continue with levofloxacin and cefepime for antimicrobial coverage Diflucan 200mg IV daily started 04/11/17. Vancomycin started on 04/12/17 secondary to temp elevations. Continue mechanical ventilation for respiratory support. Sputum culture ordered 04/13 with results pending. Solu-Medrol at 40mg IV q 12 hours. Nutritional support with DH tube feeding. Potassium and sodium normal. Blood sugars still with elevations - Increase Lantus to 46 units at HS. Doppler legs pending - ? DVT as more pedal edema present. 04/15/17 Continue with levofloxacin and cefepime for antimicrobial coverage - ID recommending an approximate 10 day course. Diflucan 200mg IV daily started 04/11/17. Vancomycin started on 04/12/17 secondary to temp elevations. Continue mechanical ventilation for respiratory support. FIO2 needs decreasing - pulm weaning. Secretions decreasing. Sputum culture ordered 04/13 with normal respiratory jesus. Solu-Medrol at 40mg IV q 12 hours. Continue neb treatments and pulmonary toilet. Nutritional support with DH tube feeding. Potassium and sodium normal. Blood sugars still with elevations - Increase Lantus to 50 units at HS. Increase Lasix back to 20mg IV BID due to increasing edema to legs. Doppler legs from 04/14/17 showing no DVT - continue Lovenox 40mg SQ daily and SCD. 04/16/17 10:42 ID recommending stopping antibiotics and observing. Continue mechanical ventilation for respiratory support. FIO2 needs decreasing - pulm weaning. Secretions decreasing. Solu-Medrol at 40mg IV q 12 hours. Continue neb treatments and pulmonary toilet. Nutritional support with DH tube feeding. Potassium and sodium normal. Blood sugars still with elevations - Increase Lantus to 50 units at HS. Increase Lasix back to 20mg IV BID due to increasing edema to legs. Doppler legs from 04/14/17 showing no DVT - continue Lovenox 40mg SQ daily and SCD. Condition critical, showing improvement from the weekend. Continued CCU care needed secondary to respiratory failure and mechanical ventilation. 04/17/17 10:35 Observing off antibiotics. Continue mechanical ventilation for respiratory support. FIO2 needs decreasing - pulm weaning. Secretions decreasing. Solu-Medrol at 40mg IV daily. Continue neb treatments and pulmonary toilet. Nutritional support with DH tube feeding. Monitor potassium and sodium. Increasing TF to 65 ml/hr. Blood sugars still with elevations - Increase Lantus to 50 units at HS. Increase scheduled Novolog and sliding scale. Increase Lasix back to 20mg IV BID due to increasing edema to legs. Case discussed with CCU nursing. 04/19 Observing off antibiotics. Recheck CBC. Steroids DC'd. Febrile today. Repeat cx. Continue mechanical ventilation for respiratory support. FIO2 needs decreasing - pulm holding off on weaning d/t fever. Solu-Medrol at 40mg IV daily. Continue neb treatments and pulmonary toilet. Nutritional support with DH tube feeding. Monitor potassium and sodium. TF goal is 65 ml/hr. Blood sugars may improve off solu-medrol. Monitor. Continuing Lantus, scheduled Novolog and sliding scale. Lasix at to 20mg IV BID due to edema to legs. Abdomen slightly distended. Bowels have slowed down on lower dose of Reglan. Will plan for daily suppository and continue MoM. Case discussed with CCU nursing, Dr. Pineda, and family. 04/20 Vanco and cefepime restarted for fever, suspecting new pneumonia. Continue mechanical ventilation for respiratory support. FIO2 needs increasing, fever, pneumonia - pulm holding off on weaning. Solu-Medrol DC'd 04/20. Continue neb treatments and pulmonary toilet. Blood sugars trending down off solu-medrol. Monitor. Continuing Lantus, scheduled Novolog and sliding scale. Nutritional support with DH tube feeding. Monitor potassium and sodium. TF goal is 65 ml/hr. Lasix at to 20mg IV BID due to edema to legs. Abdomen slightly distended. Bowels have slowed down on lower dose of Reglan again, will increase to 10 mg iv q6 and monitor. Daily suppository and continue MoM. KUB does not show obstruction. Pharmacy out of nystatin s&s for thrush. Start Diflucan
[2017-04-20] MEDS: SODIUM CL 3% INHAL.SOLN 15ml NEB AEROSOL SCH (11:46)
[2017-04-20] MEDS ORDERED: FLUCONAZOLE 100 MG TABLET PO SCH (12:15)
--- NOTE | 2017-04-20 12:25 | Pharmacy Consult-Antibiotics ---
Pharmacy Consult-Vancomycin - Laboratory Information WBC 18.2 T/MM3 (4.5-11.0) H 04/20/17 08:41 BUN 29.0 MG/DL (9-20) H 04/20/17 08:41 Creatinine 0.6 MG/DL (0.8-1.5) L 04/20/17 08:41 Procalcitonin 0.16 NG/ML 04/20/17 08:37 Vancomycin Trough 12.0 UG/ML (15-20) L 04/15/17 07:34 - Consult Information ANCOMYCIN CONSULT: 42 yo male 5'11" 136 kg on ventilator Dx: Pneumonia Current Renal Fx: SCr = 0.6 mg/dl. Will give Vancomycin 2500 mg IV q8hrs. Patient previously was on Vancomycin 2000 gm IV q8h and the trough at that dose was 12. Therefore will resume Vancomycin at a new dose of 2500 mg IV every 8 hours. Will continue to monitor and adjust regimen to maintain therapeutic levels. Thank you. Nia Alicia, PharmD
[2017-04-20] MEDS ORDERED: NS IV ONE (14:00)
[2017-04-20] MEDS ORDERED: VANCOMYCIN IV ONE (14:00)
[2017-04-20] MEDS: FLUCONAZOLE 40 MG/ML PO SCH (15:13)
[2017-04-20] MEDS: MIDAZOLAM IV PRN (19:20)
[2017-04-20] MEDS: RTU SALINE IV PRN (19:20)
[2017-04-20] MEDS: ACETAMINOPHEN 160mg/5ml ORAL LIQUID PO PRN (20:18)
[2017-04-20] MEDS: INSULIN GLARGINE 100unit/ml INJECTION SQ SCH (20:28)
[2017-04-20] MEDS: SALINE FLUSH 10ml SYRINGE IV PRN (20:30)
[2017-04-20] MEDS: NS IV SCH (22:10)
[2017-04-20] MEDS: VANCOMYCIN IV SCH (22:10)
[2017-04-21] MEDS: INSULIN ASPART 100unit/ml INJECTION SQ PRN ×3 (00:22→13:12)
[2017-04-21] MEDS: INSULIN ASPART 100unit/ml INJECTION SQ SCH ×4 (00:22→18:37)
[2017-04-21] MEDS: ALBUTEROL/IPRATROPIUM 2.5mg-0.5mg/3ml NEB AEROSOL SCH ×7 (00:50→20:40)
[2017-04-21] MEDS: SODIUM CL 3% INHAL.SOLN 15ml NEB AEROSOL SCH ×3 (01:06→23:03)
[2017-04-21] MEDS: DEXMEDETOMIDINE IV PRN ×3 (02:19→19:39)
[2017-04-21] MEDS: NS IV PRN ×3 (02:19→19:39)
[2017-04-21] MEDS: ACETAMINOPHEN 160mg/5ml ORAL LIQUID PO PRN ×2 (02:22→18:24)
[2017-04-21] MEDS: GUAIFENESIN 200mg/10ml ORAL LIQUID PO SCH ×4 (02:22→21:25)
[2017-04-21] MEDS: SALINE FLUSH 10ml SYRINGE IV PRN ×3 (02:22→21:24)
[2017-04-21] MEDS: METOCLOPRAMIDE 10mg/2ml INJECTION IVP SCH ×4 (02:22→21:24)
[2017-04-21] MEDS: MEROPENEM 1 GM in NS 100 ML IV SCH ×3 (04:41→20:56)
[2017-04-21] MEDS: NS IV SCH ×3 (06:12→21:56)
[2017-04-21] MEDS: VANCOMYCIN IV SCH ×3 (06:12→21:56)
--- NOTE | 2017-04-21 08:28 | XRay Report ---
Indication: f/u, intubated XR chest 1V: Comparison: Chest radiograph 04/20/2017 Technique: AP portable semiupright chest Findings: Since the previous day study increasing infiltrate and/or density involving the left chest. Heart size is stable. No change in the endotracheal tube or other lines and tubes noted. No acute new bony findings. Impression: Since previous day study, more hazy density now involving the left chest with stable heart size. No change in multiple tubes and lines. .
[2017-04-21] MEDS: BUDESONIDE INH.SOLN 0.5mg/2ml NEB AEROSOL SCH ×2 (08:35→18:50)
[2017-04-21] MEDS: FentaNYL 1,000 MCG in NS 80 ML IV PRN ×2 (08:47→19:44)
--- NOTE | 2017-04-21 09:05 | ID Progress Note ---
Subjective Date: 04/21/17 Subjective: He had fever up to 102 on April 19, and again overnight. His oxygen requirements have increased. Antibiotics including vancomycin and meropenem were restarted yesterday. Respiratory culture from 04/19 has normal jesus. Blood cultures from 04/19, 1 of 2, has CoNS (contaminant). Family (step-mother) is at bedside, and asks about bad teeth, because she says he's had poor dentition for awhile. His steroids have been weaned off as of yesterday. Exam Vital Signs: Temperature 101.5 F H 04/21/17 04:00 Pulse Rate 86 04/21/17 08:37 Respiratory Rate 21 04/21/17 08:37 Blood Pressure 121/78 04/21/17 06:00 Pulse Oximetry 92 04/21/17 08:37 Height/Weight/BMI: Height 1.8 m Weight 136.4 kg Body Mass Index 51.2 - Constitutional Present: obese Comments: sedated, intubated - Routine HEENT Exam Head: Present: normocephalic, atraumatic Eye: Present: EOMI Comments: ETT in place - Routine Neck Exam Absent: swelling - Routine Respiratory Exam Present: patient mechanically ventilated (on 80% FiO2), CTA bilaterally - Routine Cardiovascular Exam Present: RRR - Routine Abdominal Exam Present: soft (obese), normoactive bowel sounds. Absent: non tender, distended - Routine Exam Comments: angeles in place - Routine Extremities Exam Present: edema (trace). Absent: cyanosis, clubbing - Routine Skin Exam Present: intact. Absent: rash - Routine Neurological Exam Present: altered mental status (sedated) responds with decreasing sedation per records - Routine Psychiatric Exam Present: unable to assess Results - Labs CBC & Chem 7: 04/21/17 04:19 04/21/17 04:19 Microbiology Results: Microbiology 04/19/17 13:26 Port/Picc Gram Stain - Final 04/19/17 13:26 Port/Picc Blood Culture - Preliminary Coag negative Staphylococcus 04/19/17 13:37 Peripheral/Iv Start Blood Culture - Preliminary No Growth After 1 Day 04/19/17 15:45 Sputum, Suctioned Gram Stain - Final 04/19/17 15:45 Sputum, Suctioned Sputum Culture - Preliminary Early growth (normal jesus per Micro) 04/13/17 14:50 Sputum, Suctioned Gram Stain - Final 04/13/17 14:50 Sputum, Suctioned Sputum Culture - Final Normal Respiratory Jesus Present 04/09/17 10:00 Port/Picc Blood Culture - Final No Growth After 5 Days 04/09/17 09:24 Port/Picc Blood Culture - Final No Growth After 5 Days 04/06/17 10:37 Port/Picc Gram Stain - Final 04/06/17 10:37 Port/Picc Blood Culture - Final Corynebacterium species 04/06/17 11:03 Port/Picc Blood Culture - Final No Growth After 5 Days 04/07/17 08:43 Nasopahrynx Gram Stain - Final 04/07/17 08:43 Nasopahrynx Nasopharyngeal Culture - Final Normal Respiratory Jesus 04/03/17 11:30 Sputum, Suctioned Gram Stain - Final 04/03/17 11:30 Sputum, Suctioned Sputum Culture - Final Normal Respiratory Jesus 04/03/17 10:38 Urine Legionella Urinary Antigen - Final 04/03/17 10:38 Urine Streptococcus pneumoniae Antigen (M - Final - Impressions Comparison: Chest radiograph 04/20/2017 Technique: AP portable semiupright chest Findings: Since the previous day study increasing infiltrate and/or density involving the left chest. Heart size is stable. No change in the endotracheal tube or other lines and tubes noted. No acute new bony findings. Impression: Since previous day study, more hazy density now involving the left chest with stable heart size. No change in multiple tubes and lines. . Impression: Sepsis, secondary to pulmonary source, s/p 14 days of IV antibiotics completed . Now with worsening leukocytosis, fever, increased O2 requirements and new L-sided infiltrate on 04/20/17. Acute hypoxic respiratory failure Bilateral community-acquired pneumonia ARDS s/p steroids S/p CODE BLUE/bradycardia versus short lasting asystole on 04/06/2017 1/2 blood cultures positive for Corynebacterium species, contaminant DM II, newly diagnosed Morbid obesity Probable obstructive sleep apnea Tobaccoism Tinea corporis Copious thick nasal secretions from R nare, culture negative PCN allergy per records Elevated D-dimer Recommendation: Recommend continuing meropenem and vancomycin for now. In the next 24-48 hours, if there are no gram positives in his cultures then I would recommend stopping the vancomycin. I will repeat a respiratory viral panel. I will check an HIV screen as well as histoplasma and cryptococcal antigen tests. I discussed with his family that I don't think that an abscessed tooth is relevant with regard to his respiratory failure and pneumonia at the present time. Continue supportive care. Prognosis is guarded.
[2017-04-21] MEDS: ENOXAPARIN 40 MG/0.4 ML INJECTION SQ SCH (09:20)
[2017-04-21] MEDS: PANTOPRAZOLE 40 MG INJECTION IVP SCH ×2 (09:20→21:24)
[2017-04-21] MEDS: CHLORHEXIDINE 0.12% ORAL RINSE PO SCH ×2 (09:20→21:25)
[2017-04-21] MEDS: FUROSEMIDE 20 MG/2 ML INJECTION IVP SCH ×2 (09:20→21:24)
[2017-04-21] MEDS: BISACODYL 10 MG SUPPOSITORY RECTALLY SCH (09:21)
[2017-04-21] MEDS: TERFINAFINE 1% CREAM 12 G TUBE TOP SCH ×2 (09:22→21:26)
[2017-04-21] MEDS: FLUCONAZOLE 40 MG/ML PO SCH (10:48)
--- NOTE | 2017-04-21 12:37 | Pulmonology Progress Note ---
Subjective Principal diagnosis: bradycardia Interval history: Pt currently sedated on the vent with Precedex 0.8 mcg/kg/hr, fent 100 mcg/hr and versed 5 mg/hr. Pt wakes to voice and following commands although very weak. On vent with peep 8, 80%, sats stable at this time. No new issues. Exam Vital signs: Temperature 101.5 F H 04/21/17 04:00 Pulse Rate 84 04/21/17 11:04 Respiratory Rate 20 04/21/17 11:04 Blood Pressure 121/77 04/21/17 08:00 Pulse Oximetry 93 04/21/17 11:04 - Constitutional no acute distress, morbidly obese - Routine HEENT Exam Head: Present: normocephalic, atraumatic Eye: Present: EOMI, PERRL ENT: Present: mucous membranes moist - Routine Neck Exam Present: supple, full ROM, trachea midline - Routine Respiratory Exam Present: patient mechanically ventilated, decreased breath sounds - Routine Cardiovascular Exam Present: RRR, S1, S2, no murmur - Routine Abdominal Exam Present: soft, normoactive bowel sounds - Routine Extremities Exam Present: edema, non tender, full ROM Comments: passive ROM - Routine Back/Spine/Pelvis Exam Back/Spine: Present: full ROM - Routine Skin Exam Present: intact, dry - Routine Neurological Exam Present: alert, altered mental status wakes to voice - Routine Psychiatric Exam Present: unable to assess - Urinary Catheter Management Urethral Cath placed during this visit: yes Urethral indwelling: Yes Insertion date: 04/02/17 Insertion time: 22:20 Assessment and Plan - Assessment and Plan Acute Hypoxic hypercapnic Respiratory Failure CAP Pneumonia Sepsis/ARDS Likely COPD Likely GLADYS - will need OP PSG Elevated LFT's HyperKalemia Fluid overload Plan: Pt currently on vent settings f20, Vt 500, peep 8, 80%, sats 92%. Failed SBT on Friday with increased O2 needs and RSBI 100. On precedex, fent and versed for sedation, wakes and follows commands. CXR with increased L side infiltrates noted today, sputum many wbc, GPC, GPR, cx normal jesus, WBC 18.17 today. Currently on Vanco and merrem, BC 1/2 coag neg staph likely contaminant, febrile this am 101.5, ID following. On BT's with pulmicort BID, a/a q4hr and 3 % q 6. Currently on lasix 20 BID, still with BLE edema improving though. Likely with new pna with fevers and increase WBC and CXR change. TF restarted and victor m at this time, per primary. Cont to follow closely. - Time Spent With Patient Total time spent is greater than 50% in coordination of care (as documented) at patient's floor/unit and/or counseling patient: less than 15 minutes
--- NOTE | 2017-04-21 14:15 | XRay Report ---
Indication: check dobhoff, tube displaced XR chest 1V: One view upper abdomen Comparison: 04/21/2007 earlier in the day Technique: AP portable semiupright images Findings: Patient showed the Dobbhoff appears to be in the distal portion of the duodenal C-loop. The NG tube may also be in place in the stomach. Increased markings seen in both lung bases. Moderate amount of gas identified in the abdomen. Impression: Dobbhoff appears to be in the distal portion of the duodenal C-loop. This was communicated to the ordering nursing floor. .
--- NOTE | 2017-04-21 15:20 | Pharmacy Consult-Antibiotics ---
Pharmacy Consult-Vancomycin - Laboratory Information WBC 17.4 T/MM3 (4.5-11.0) H 04/21/17 04:19 BUN 29.0 MG/DL (9-20) H 04/21/17 04:19 Creatinine 0.6 MG/DL (0.8-1.5) L 04/21/17 04:19 Procalcitonin 0.16 NG/ML 04/20/17 08:37 Vancomycin Trough 18.27 UG/ML (15-20) 04/21/17 13:33 - Consult Information VANCOMYCIN CONSULT: Vancomycin Trough = 18.2 mcg/ml. Today's SCr = 0.6 mg/dl. Will give Vancomycin 2,500 mg IV q8hrs. Will continue to monitor and make adjustments accordingly. Thank you.
[2017-04-21] MEDS ORDERED: SODIUM BICARBONATE 650 MG TABLET PO ONE (15:46)
[2017-04-21] MEDS ORDERED: PANCRELIPASE PO ONE (15:56)
[2017-04-21] MEDS: RTU SALINE IV PRN (17:49)
[2017-04-21] MEDS: MIDAZOLAM IV PRN (17:49)
--- NOTE | 2017-04-21 18:59 | Progress Note ---
- Date 04/21/17 Subjective: F/U: Acute respiratory failure, ARDS, Pneumonia Sedated on vent. DH pulled out slightly with positioning-repositioned and confirmed with X-ray. Unfortunately, nursing not able to flush DH since about 1400 this afternoon. Nursing reports will awaken briefly to verbal stimuli. BP and HR stable. Objective Vital signs: Temperature 99.1 F 04/21/17 08:15 Pulse Rate 85 04/21/17 17:10 Respiratory Rate 22 04/21/17 17:10 Blood Pressure 122/75 04/21/17 16:00 Pulse Oximetry 96 04/21/17 17:10 Rhythm: Normal Sinus Rhythm Height/Weight/BMI: Height 1.8 m Weight 132.5 kg Body Mass Index 51.2 - Constitutional Present: well nourished, well developed, average body habitus, morbidly obese - Routine HEENT Exam Head: Present: normocephalic, atraumatic Eye: Present: EOMI, PERRL - Routine Respiratory Exam Present: patient mechanically ventilated, decreased breath sounds - Routine Cardiovascular Exam Present: RRR, no murmur - Routine Abdominal Exam Present: soft, distended. Absent: normoactive bowel sounds (decreased ) - Routine Extremities Exam Present: edema (trace pedal edema bilaterally.), pulses intact, normal capillary refill - Routine Musculoskeletal Exam Musculoskeletal: Present: no clubbing or cyanosis - Routine Skin Exam Present: dry, warm - Routine Neurological Exam Sedated - Routine Psychiatric Exam Comments: Sedated Results - Labs CBC & Chem 7: 04/21/17 04:19 04/21/17 04:19 Microbiology Results: Microbiology 04/19/17 13:37 Peripheral/Iv Start Blood Culture - Preliminary No Growth After 2 Days 04/19/17 15:45 Sputum, Suctioned Gram Stain - Final 04/19/17 15:45 Sputum, Suctioned Sputum Culture - Final Normal Respiratory Jesus 04/19/17 13:26 Port/Picc Gram Stain - Final 04/19/17 13:26 Port/Picc Blood Culture - Preliminary Coag negative Staphylococcus 04/13/17 14:50 Sputum, Suctioned Gram Stain - Final 04/13/17 14:50 Sputum, Suctioned Sputum Culture - Final Normal Respiratory Jesus Present 04/09/17 10:00 Port/Picc Blood Culture - Final No Growth After 5 Days 04/09/17 09:24 Port/Picc Blood Culture - Final No Growth After 5 Days 04/06/17 10:37 Port/Picc Gram Stain - Final 04/06/17 10:37 Port/Picc Blood Culture - Final Corynebacterium species 04/06/17 11:03 Port/Picc Blood Culture - Final No Growth After 5 Days 04/07/17 08:43 Nasopahrynx Gram Stain - Final 04/07/17 08:43 Nasopahrynx Nasopharyngeal Culture - Final Normal Respiratory Jesus 04/03/17 11:30 Sputum, Suctioned Gram Stain - Final 04/03/17 11:30 Sputum, Suctioned Sputum Culture - Final Normal Respiratory Jesus 04/03/17 10:38 Urine Legionella Urinary Antigen - Final 04/03/17 10:38 Urine Streptococcus pneumoniae Antigen (M - Final Assessment and Plan (1) Community acquired pneumonia Current visit: No Status: Acute Assessment and Plan: Assessment Acute hypoxic and hypercarbic respiratory failure-requiring mechanical ventilation. Intubated on 04/02/2017. Versed and fentanyl for sedation ARDS Community - acquired pneumonia-severe, requiring intubation. Levaquin initiated 04/03/2017 and Rocephin initiated 04/02/2017. Changed Rocephin to cefepime on . Sepsis secondary to pneumonia on admission Manifestations: Tachycardia, tachypnea, leukocytosis. Lactate normal on admission CODE BLUE/bradycardia versus short lasting asystole on 04/06/2017-patient received chest compressions 3 - EKG and troponin post event were normal Elevated d-dimer 555 - Lovenox therapeutic dose initiated 04/06/2017. Blood culture one of 2 on 04/06/2027 positive for corynebacterium -discussed with Dr. Johnson. This is most likely contaminant. Anasarca - improving; significant decrease of fluid since admit Echocardiogram revealed normal EF, left ventricular hypertrophy, PA pressure 41 with mild pulmonary hypertension (echo 04/06/2017 unchanged on recheck)-BNP has been normal. Diabetes Mellitus Type 2 - A1C 7.1 on admission (new diagnosis)-on Lantus, scheduled NovoLog and sliding scale insulin Possible COPD Probable obstructive sleep apnea Chronic back pain with high-dose ibuprofen and Tylenol use prior to admission Tinea corporis/ringworm? Tobacco dependence Hyperkalemia with potassium up to 5.5 of undetermined etiology (Not POA). Possible sinusitis right nears with copious thick nasal secretions - C/S showing normal jesus Mild hypernatremia (Not POA) Morbid obesity-BMI 42.0 Plan Continue Vancomycin and cefepime - suspecting new pneumonia. Continue mechanical ventilation for respiratory support. FIO2 needs with slight improvement today. Continue neb treatments and pulmonary toilet. DH not flushing - will attempt to replace. If not able to restart TF would recommend hold routine insulin and decrease Lantus to 15 units this evening to decrease potential for hypoglycemia. TF goal is 65 ml/hr. Lasix at to 20mg IV BID due to edema to legs. Creatinine, potassium, and BP stable. Discussed with Pulm about family concern regarding potential dental abscess - worry respiratory status not stable enough at this time to risk CT scan. Recheck BMP in am secondary to medication use. Will repeat CBC in am due to leukocytosis. Case discussed with CCU nursing and family. Time spent with patient care 25 minutes. DVT Prophylaxis: SCD's, Lovenox Resuscitation Status: Full Code - Time spent with patient Time with patient PN: 25 minutes - Physician Narrative Physician: Wally Lewis MD Narrative: Date: 04/21/17 Time: 185 Hospital Course Summary Disclaimer: The visit summary below is not to be considered part of the above Progress Note. Hospital Course: Assessment Respiratory insufficiency with hypoxia Sepsis secondary to pneumonia Manifestations: Tachycardia, tachypnea, leukocytosis Community-acquired pneumonia Anasarca Morbid obesity-BMI 42.0 Hyperglycemia-POA Tinea corporis Tobacco dependence 04/02/17 Hospital admission Admit to inpatient status under the care of the hospitalist service, Dr. Lewis attending. It is expected that his stay will exceed 2 overnights given his sepsis secondary to pneumonia and overall condition. SCDs and Lovenox for DVT prophylaxis Urinalysis for laboratory completeness. Repeat CBC and BMP in am to follow leukocytosis, renal function and electrolytes. Schedule echocardiogram to evaluate cardiac structure and function given his anasarca and dyspnea. Oxygen, DuoNeb treatments, Acapella, and guaifenesin for respiratory symptoms. Continue Rocephin and Zithromax initiated and the emergency room. Blood cultures were drawn prior to antibiotic initiation. RT consult tobacco cessation. Terbinafine topically for his tinea corporis Patient wishes to be a full code. Case discussed with Dr. Lewis. Case management will need to assist in finding patient a PCP. 04/04/17 12:03 Plan The patient continues to require mechanical ventilation and is on 100% FiO2 regarding his ARDS and pneumonia. Continue ventilator support - Dr. Pineda is following. His help is greatly appreciated. Continue Levaquin initiated 04/03/2017 and Rocephin initiated 04/02/2017 Continue Solu-Medrol Discussed with Dr. Pineda, will change Lovenox to prophylactic dose. Venous Doppler of the legs were negative for DVT. No signs of right heart strain on echocardiogram. Advance tube feedings Nutren luminary 1.5 to goal of 70 ML's per hour. Start free water 400 ML's every 8 hours. DC IV fluids Vishal blood pressure off of IV fluids. May need to initiate antihypertensive Start Lantus 10 units subcutaneous daily. Increase to medium dose sliding scale insulin. Continue Lasix 40 mg IV every 12. Patient is diuresing well. Check CBC and renal panel tomorrow. Chest x-ray tomorrow. Assess with Dr. Pineda, the patient's significant other, and the patient's nurse. 04/05/17 09:31 Plan The patient continues to require mechanical ventilation and is now on 95% FiO2 regarding his ARDS and pneumonia. Continue ventilator support per Dr. Pineda Continue Levaquin initiated 04/03/2017 and Rocephin initiated 04/02/2017. Continue Solu-Medrol Regarding hyperkalemia, will try to change to feeding to a renal tube feeds. Check ABG. (7.32/79/103 on 95% FiO2) Recheck basic metabolic profile later today. May need to increase fluids followed by diuresis for hyperkalemia Increase Lantus to 20 units subcutaneous daily for hyperglycemia. Increase sliding scale insulin to high dose Start Reglan and Dulcolax suppositories to stimulate GI tract. Decrease tube feed rate to 50 ML's for now. Greater than 40 minutes critical care time. 04/07/2017 Plan The patient continues to require mechanical ventilation and FiO2 100% regarding his ARDS and pneumonia. The patient has tolerated discontinuation of propofol and initiation of Versed. The patient is tolerating his tube feedings. Will advance as tolerated. Will increase free water to 200 ML's every 4 hours and decrease Lasix to 20 mg IV every 12 regarding his elated sodium. Continue to monitor blood pressure closely. Continue Levaquin initiated 04/03/2017 and Rocephin initiated 04/02/2017. Continue Solu-Medrol Regarding hyperkalemia-is resolved. Continue renal tube feeds Continue Reglan and Dulcolax suppositories to stimulate GI tract. Greater than 45 minutes of critical care time spent seeing and evaluating the patient. The patient's brother was updated. 04/08/17 09:49 Plan Overall, the patient is stable. He is diuresing well. Weight is down approximately 22 kg over the past 1 week. He has been on the ventilator for one week now. FiO2 turned down to 95% this morning. Consulted Dr. Johnson regarding positive blood culture and antibiotic recommendations The patient continues to require mechanical ventilation regarding his ARDS and pneumonia. FiO2 down to 95% this morning The patient is tolerating his tube feedings. Will advance as tolerated to goal. Will increase free water to 250 ML's every 4 hours. Continue Lasix 20 mg IV every 12. Continue to monitor blood pressure closely. Continue Levaquin initiated 04/03/2017 and Rocephin initiated 04/02/2017. Continue Solu-Medrol and breathing treatments Regarding hyperkalemia- Continue renal tube feeds Continue Reglan and Dulcolax suppositories to stimulate GI tract. Regarding possible mild upper GI bleed, will Gastric occult NG drainage. Hold Lovenox for now. Greater than 45 minutes of critical care time spent seeing and evaluating the patient. 04/09/17 Overall, the patient is improving. FiO2 is now down to 70%. The patient appears to be nearly euvolemic at this time. We'll continue Lasix. Weight is down approximately 22 kg over the past [address] Johnson recommends approximately 10 days of broad-spectrum antibiotics for his pneumonia. She recommended discontinuation of vancomycin today with corynebacterium found in one of 2 blood cultures on April 06 most likely being a contaminant. Currently at goal rate on tube feedings. He is on a renal formulation because of hyperkalemia. May need to increase free water further if sodium does not improving. Continue Levaquin initiated 04/03/2017 and Rocephin initiated 04/02/2017. Rocephin discontinued on 04/06/2017 and cefepime started. Vancomycin started and discontinued on 04/09/2017 Continue Solu-Medrol and breathing treatments Add MiraLAX for constipation Continue Lovenox for DVT prophylaxis (gastric occult from NG drainage was negative) 04/10/17 Debbie Continue with levofloxacin and cefepime for antimicrobial coverage - ID recommending an approximate 10 day course. Will continue with Solu-Medrol at 40mg IV q 8 hours -started on 03/26/17. Potentially could start to decrease. Continue neb treatments and pulmonary toilet. Nutritional support with DH tube feeding. Potassium normal. LFT with gradual increase-potential fatty liver secondary to continuous TF. Continue Lasix. Weight is down approximately 22 kg over the past 1 week. Renal status stable. Blood sugars showing persistent elevation in the low to mid 200's. Will increase Lantus to 34 units at night. 04/11/17 Continue with levofloxacin and cefepime for antimicrobial coverage - ID recommending an approximate 10 day course. With increased temp, persistent leukocytosis, steroid and antibiotic use will start Diflucan 200mg IV daily. Continue mechanical ventilation for respiratory support. Pulm decreased Solu-Medrol to 40mg IV q 12 hours. Continue neb treatments and pulmonary toilet. Slowly able to wean down FIO2. Nutritional support with DH tube feeding. Continue Lasix 20 mg IV BID. Creatinine and BP stable. Potassium with increase to 5.4 this am. Blood sugars still with elevations - will continue current regimen, watching for decrease with decreased Solu-Medrol. 04/12/17 Continue with levofloxacin and cefepime for antimicrobial coverage - ID recommending an approximate 10 day course. Diflucan 200mg IV daily started 04/11/17. Continue mechanical ventilation for respiratory support - Solu-Medrol at 40mg IV q 12 hours. O2 needs increased today - likely mucous plugging. Creatinine with increase to 1.1. Edema much improved. Will decrease Lasix to 20mg daily to minimize overdiuresis. Blood sugars still with elevations - Increase Lantus to 38 units at HS. 04/13/17 Continue with levofloxacin and cefepime for antimicrobial coverage - ID recommending an approximate 10 day course. Diflucan 200mg IV daily started 04/11/17. Vancomycin started on 04/12/17 secondary to temp elevations. Continue mechanical ventilation for respiratory support. Increasing FIO2 - needing 100%. Sputum culture ordered by Dr Pienda. Solu-Medrol at 40mg IV q 12 hours. Continue neb treatments and pulmonary toilet. Nutritional support with DH tube feeding. Creatinine did decrease to 0.8. With increasing oxygen needs and increased intake as compared to output past 2 days will give 20mg IV Lasix. Blood sugars still with elevations - Increase Lantus to 42 units at HS. 04/14/17 Continue with levofloxacin and cefepime for antimicrobial coverage Diflucan 200mg IV daily started 04/11/17. Vancomycin started on 04/12/17 secondary to temp elevations. Continue mechanical ventilation for respiratory support. Sputum culture ordered 04/13 with results pending. Solu-Medrol at 40mg IV q 12 hours. Nutritional support with DH tube feeding. Potassium and sodium normal. Blood sugars still with elevations - Increase Lantus to 46 units at HS. Doppler legs pending - ? DVT as more pedal edema present. 04/15/17 Continue with levofloxacin and cefepime for antimicrobial coverage - ID recommending an approximate 10 day course. Diflucan 200mg IV daily started 04/11/17. Vancomycin started on 04/12/17 secondary to temp elevations. Continue mechanical ventilation for respiratory support. FIO2 needs decreasing - pulm weaning. Secretions decreasing. Sputum culture ordered 04/13 with normal respiratory jesus. Solu-Medrol at 40mg IV q 12 hours. Continue neb treatments and pulmonary toilet. Nutritional support with DH tube feeding. Potassium and sodium normal. Blood sugars still with elevations - Increase Lantus to 50 units at HS. Increase Lasix back to 20mg IV BID due to increasing edema to legs. Doppler legs from 04/14/17 showing no DVT - continue Lovenox 40mg SQ daily and SCD. 04/16/17 ID recommending stopping antibiotics and observing. Continue mechanical ventilation for respiratory support. FIO2 needs decreasing - pulm weaning. Secretions decreasing. Solu-Medrol at 40mg IV q 12 hours. Continue neb treatments and pulmonary toilet. Nutritional support with DH tube feeding. Potassium and sodium normal. Blood sugars still with elevations - Increase Lantus to 50 units at HS. Increase Lasix back to 20mg IV BID due to increasing edema to legs. Doppler legs from 04/14/17 showing no DVT - continue Lovenox 40mg SQ daily and SCD. Condition critical, showing improvement from the weekend. Continued CCU care needed secondary to respiratory failure and mechanical ventilation. 04/17/17 Observing off antibiotics. Continue mechanical ventilation for respiratory support. FIO2 needs decreasing - pulm weaning. Secretions decreasing. Solu-Medrol at 40mg IV daily. Continue neb treatments and pulmonary toilet. Nutritional support with DH tube feeding. Monitor potassium and sodium. Increasing TF to 65 ml/hr. Blood sugars still with elevations - Increase Lantus to 50 units at HS. Increase scheduled Novolog and sliding scale. Increase Lasix back to 20mg IV BID due to increasing edema to legs. 04/19 Observing off antibiotics. Recheck CBC. Steroids DC'd. Febrile today. Repeat cx. Continue mechanical ventilation for respiratory support. FIO2 needs decreasing - pulm holding off on weaning d/t fever. Solu-Medrol at 40mg IV daily. Continue neb treatments and pulmonary toilet. Nutritional support with DH tube feeding. Monitor potassium and sodium. TF goal is 65 ml/hr. Blood sugars may improve off solu-medrol. Monitor. Continuing Lantus, scheduled Novolog and sliding scale. Lasix at to 20mg IV BID due to edema to legs. Abdomen slightly distended. Bowels have slowed down on lower dose of Reglan. Will plan for daily suppository and continue MoM. 04/20 Vanco and cefepime restarted for fever, suspecting new pneumonia. Continue mechanical ventilation for respiratory support. FIO2 needs increasing, fever, pneumonia - pulm holding off on weaning. Solu-Medrol DC'd 04/20. Continue neb treatments and pulmonary toilet. Blood sugars trending down off solu-medrol. Monitor. Continuing Lantus, scheduled Novolog and sliding scale. Nutritional support with DH tube feeding. Monitor potassium and sodium. TF goal is 65 ml/hr. Lasix at to 20mg IV BID due to edema to legs. Abdomen slightly distended. Bowels have slowed down on lower dose of Reglan again, will increase to 10 mg iv q6 and monitor. Daily suppository and continue MoM. KUB does not show obstruction. Pharmacy out of nystatin s&s for thrush. Start Diflucan 04/21/17 Continue Vancomycin and cefepime - suspecting new pneumonia. Continue mechanical ventilation for respiratory support. FIO2 needs with slight improvement today. Continue neb treatments and pulmonary toilet. DH not flushing - will attempt to replace. If not able to restart TF would hold routine insulin and decrease Lantus to 15 units this evening to decrease potential for hypoglycemia. TF goal is 65 ml/hr. Lasix at to 20mg IV BID due to edema to legs. Creatinine, potassium, and BP stable. Discussed with Pulm about family concern regarding potential dental abscess - worry respiratory status not stable enough at this time to risk CT scan.
[2017-04-21] MEDS: INSULIN GLARGINE 100unit/ml INJECTION SQ SCH (21:26)
[2017-04-22] MEDS: ACETAMINOPHEN 160mg/5ml ORAL LIQUID PO PRN ×4 (00:07→23:54)
[2017-04-22] MEDS: INSULIN ASPART 100unit/ml INJECTION SQ SCH ×5 (00:07→23:53)
[2017-04-22] MEDS: INSULIN ASPART 100unit/ml INJECTION SQ PRN ×5 (00:07→23:53)
[2017-04-22] MEDS: ALBUTEROL/IPRATROPIUM 2.5mg-0.5mg/3ml NEB AEROSOL SCH ×6 (01:15→21:40)
[2017-04-22] MEDS: GUAIFENESIN 200mg/10ml ORAL LIQUID PO SCH ×4 (02:56→20:37)
[2017-04-22] MEDS: METOCLOPRAMIDE 10mg/2ml INJECTION IVP SCH ×4 (02:56→20:37)
[2017-04-22] MEDS: MEROPENEM 1 GM in NS 100 ML IV SCH ×3 (03:29→20:27)
[2017-04-22] MEDS: NS IV PRN ×2 (03:30→13:30)
[2017-04-22] MEDS: DEXMEDETOMIDINE IV PRN ×2 (03:30→13:30)
[2017-04-22] MEDS: FentaNYL 1,000 MCG in NS 80 ML IV PRN ×3 (04:09→23:42)
[2017-04-22] MEDS: SALINE FLUSH 10ml SYRINGE IV PRN ×2 (04:32→23:54)
[2017-04-22] MEDS: VANCOMYCIN IV SCH ×3 (06:23→22:18)
[2017-04-22] MEDS: NS IV SCH ×3 (06:23→22:18)
[2017-04-22] MEDS: BUDESONIDE INH.SOLN 0.5mg/2ml NEB AEROSOL SCH ×2 (06:35→18:55)
[2017-04-22] MEDS: SODIUM CL 3% INHAL.SOLN 15ml NEB AEROSOL SCH ×2 (06:44→23:40)
--- NOTE | 2017-04-22 07:57 | XRay Report ---
Indication: confirm placement of new dobhoff tube PROCEDURE: XR chest 1V: Encounter: Initial Comparison: April 20, 2017 Findings: Dobbhoff tube in place with the tip projecting over the pylorus region or first portion of the duodenum. Nasogastric tube in place with the tip and side port projecting over the body of the stomach. No gross free air. Colonic distention noted. Impression: Tubes and lines as above. There is a preliminary report by [facility]. .
--- NOTE | 2017-04-22 07:58 | XRay Report ---
Indication: f/u, intubated PROCEDURE: XR chest 1V: Encounter: Initial Comparison: April 21, 2017 at 1335 Findings: Right IJ line, ET tube, NG and Dobhoff tubes are again noted. Lungs are grossly stable with a small left effusion and left side predominant hazy airspace opacities. No pneumothorax. Heart size and mediastinal contours are stable. Impression: Stable appearance of the chest. .
--- NOTE | 2017-04-22 09:01 | Pulmonology Progress Note ---
Subjective Principal diagnosis: bradycardia Interval history: Pt currently awake. Has been weaned off sedation for SBT. Night staff was able to wean peep to 5 and FiO2 to 40%. SpO2 is 92% Temps remain >101-102. Pt wakes to voice and following commands although very weak. He is unable to lift head off the bed and can barely lift his hands off the bed. DHT was replaced overnight due to clogging. has been tolerating his TF's Exam Vital signs: Temperature 102.1 F H 04/22/17 06:00 Pulse Rate 90 04/22/17 07:00 Respiratory Rate 33 H 04/22/17 07:00 Blood Pressure 115/69 04/22/17 06:00 Pulse Oximetry 96 04/22/17 07:00 - Constitutional obese, diaphoretic - Routine Respiratory Exam Present: decreased breath sounds, rhonchi Comments: on left - Routine Cardiovascular Exam Present: RRR - Routine Abdominal Exam Present: distended. Absent: guarding - Routine Extremities Exam Present: edema. Absent: cyanosis, clubbing - Routine Skin Exam Present: erythema - Routine Neurological Exam Present: motor deficit weakness - Urinary Catheter Management Urethral Cath placed during this visit: yes Urethral indwelling: Yes Insertion date: 04/02/17 Insertion time: 22:20 Assessment and Plan (1) Acute respiratory failure with hypoxia Status: Acute Assessment and plan: He is currently on SBT. PSV 8, peep 5, FiO2 40%. RSBI 100, Minute vent is 15-19 L/min I don't think he is strong enough to be extubated. His RSBI is borderline and he is working hard trying to maintain current status. He has a large amount of upper airway secretions and is too weak to cough them out if extubated. I recommend trach/Peg as the next step. This can be followed up by further weaning and hopefully we can avoid so much sedation, start PT/OT. Current Visit: Yes - Assessment and Plan Acute Hypoxic hypercapnic Respiratory Failure CAP Pneumonia Sepsis/ARDS Likely COPD Likely GLADYS - will need OP PSG Elevated LFT's HyperKalemia Fluid overload - Time Spent With Patient Total time spent is greater than 50% in coordination of care (as documented) at patient's floor/unit and/or counseling patient: 25 - 35 minutes
[2017-04-22] MEDS: CHLORHEXIDINE 0.12% ORAL RINSE PO SCH ×2 (09:39→20:37)
[2017-04-22] MEDS: ENOXAPARIN 40 MG/0.4 ML INJECTION SQ SCH (09:39)
[2017-04-22] MEDS: BISACODYL 10 MG SUPPOSITORY RECTALLY SCH (09:39)
[2017-04-22] MEDS: FLUCONAZOLE 40 MG/ML PO SCH (09:40)
[2017-04-22] MEDS: FUROSEMIDE 20 MG/2 ML INJECTION IVP SCH ×2 (09:41→20:37)
[2017-04-22] MEDS: PANTOPRAZOLE 40 MG INJECTION IVP SCH ×2 (09:41→20:37)
[2017-04-22] MEDS: TERFINAFINE 1% CREAM 12 G TUBE TOP SCH ×2 (09:42→20:39)
[2017-04-22] MEDS: NYSTATIN 500,000 units/5 ml ORAL LIQUID PO SCH ×3 (14:00→20:27)
--- NOTE | 2017-04-22 15:51 | Cardiology Progress Note ---
<Vidhya Gavlez - Last Filed: 04/22/17 15:48> Subjective Principal diagnosis: bradycardia Interval history: Gianni is seen in follow up for bradycardia. He remains sedated on the ventilator. He is down to 40% and PEEP of 5 today. Family at the bedside, no new arrhythmias or cardiac concerns. Exam Vital signs: Temperature 102.8 F H 04/22/17 09:00 Pulse Rate 83 04/22/17 15:38 Respiratory Rate 24 04/22/17 15:38 Blood Pressure 127/69 04/22/17 09:00 Pulse Oximetry 94 04/22/17 15:38 - Constitutional obese - Routine HEENT Exam Head: Present: normocephalic ENT: Present: mucous membranes moist - Routine Respiratory Exam Present: patient mechanically ventilated, decreased breath sounds - Routine Cardiovascular Exam Present: RRR, no murmur - Routine Abdominal Exam Present: soft, distended. Absent: normoactive bowel sounds (hypoactive) - Routine Extremities Exam Present: edema - Routine Skin Exam Present: intact, dry, warm - Additional findings Additional findings: Acetaminophen (Tylenol Liquid) 640 mg PO Q5H PRN PRN Reason: Discomfort Last Admin: 04/22/17 06:22 Dose: 640 mg Acetaminophen (Tylenol Supp) 650 mg VT Q5H PRN PRN Reason: Fever /Discomfort Albuterol/Ipratropium (Duoneb) 3 ml AEROSOL Q2HR PRN Last Admin: 04/19/17 18:50 Dose: 3 ml Albuterol/Ipratropium (Duoneb) 3 ml AEROSOL Q4HR [facility] Last Admin: 04/22/17 15:30 Dose: 3 ml Artificial Tears (Refresh Classic) 1 drop EACH EYE PRN PRN Last Admin: 04/18/17 09:14 Dose: 1 drop Benzocaine (Orajel) 1 applic MM QID PRN Last Admin: 04/19/17 14:05 Dose: 1 applic Bisacodyl (Dulcolax) 10 mg RECTALLY DAILY [facility] Stop: 04/26/17 09:01 Last Admin: 04/22/17 09:39 Dose: 10 mg Budesonide (Pulmicort Inhalation) 0.5 mg AEROSOL RTBID [facility] Last Admin: 04/22/17 06:35 Dose: 0.5 mg Chlorhexidine Gluconate (Peridex) 15 ml PO BID [facility] Last Admin: 04/22/17 09:39 Dose: 15 ml Dextrose (D50%W) 20 ml IVP PRN PRN PRN Reason: Hypoglycemia Enoxaparin Sodium (Lovenox) 40 mg SQ DAILY [facility] Last Admin: 04/22/17 09:39 Dose: 40 mg Fluconazole (Diflucan) 200 mg PO DAILY [facility] Last Admin: 04/22/17 09:40 Dose: 200 mg Furosemide (Lasix) 20 mg IVP Q12HR [facility] Last Admin: 04/22/17 09:41 Dose: 20 mg Guaifenesin (Robitussin Liq) 400 mg PO Q6HR [facility] Last Admin: 04/22/17 09:41 Dose: 400 mg Fentanyl 1,000 mcg/ Sodium (Chloride) 100 mls @ 0 mls/hr IV .Q0M PRN; Protocol ; Per Protocol PRN Reason: Sedation Last Infusion: 04/22/17 09:00 Dose: 5 mls/hr Midazolam HCl 100 mg/ Sodium (Chloride) 100 mls @ 0 mls/hr IV .Q0M PRN; Protocol; Per Protocol PRN Reason: VENT SEDATION Last Titration: 04/22/17 09:00 Dose: 3 mls/hr Dexmedetomidine HCl 1,000 mcg/ (Sodium Chloride) 260 mls @ 7.47 mls/hr IV .Q24H PRN; 0.2 MCG/KG/HR PRN Reason: Protocol Last Admin: 04/22/17 13:30 Dose: 0.56 mcg/kg/hr, 21 mls/hr Meropenem 1 gm/ Sodium (Chloride) 100 mls @ 200 mls/hr IV Q8H [facility] Last Admin: 04/22/17 12:03 Dose: 200 mls/hr Vancomycin HCl 2,500 mg/ (Sodium Chloride) 500 mls @ 250 mls/hr IV Q8H [facility] Last Admin: 04/22/17 13:59 Dose: 250 mls/hr Insulin Aspart (Novolog) 3 - 12 unit SQ SS PRN; Protocol PRN Reason: Hyperglycemia Last Admin: 04/22/17 12:10 Dose: 5 unit Insulin Aspart (Novolog) 10 unit SQ 0001,0600,1200,1800 [facility] Last Admin: 04/22/17 12:09 Dose: 10 unit Insulin Glargine (Lantus) 50 unit SQ HS [facility] Last Admin: 04/21/17 21:26 Dose: 50 unit Lorazepam (Ativan Inj) 2 mg IVP Q1H PRN PRN Reason: Anxiety/Restlessness Last Admin: 04/18/17 03:40 Dose: 2 mg Magnesium Hydroxide (Mom) 30 ml PO DAILY PRN PRN Reason: Constipation Last Admin: 04/19/17 08:41 Dose: 30 ml Menthol (Ricola Sf) 1 lozenge MM PRN PRN PRN Reason: Cough Metoclopramide HCl (Reglan) 10 mg IVP Q6HR [facility] Last Admin: 04/22/17 09:41 Dose: 10 mg Nystatin (Mycostatin) 5 ml PO QID [facility] Last Admin: 04/22/17 14:00 Dose: 5 ml Pantoprazole Sodium (Protonix Iv) 40 mg IVP BID [facility] Last Admin: 04/22/17 09:41 Dose: 40 mg Sodium Chloride (Iv Flush) 10 - 80 ml IV PRN PRN PRN Reason: Flushing Last Admin: 04/22/17 04:32 Dose: 50 ml Sodium Chloride (Sodium Chloride 3% Inhal) 3 ml AEROSOL Q12HR [facility] Last Admin: 04/22/17 06:44 Dose: 3 ml Sodium Chloride (Normal Saline) 500 ml IV PRN PRN Last Admin: 04/15/17 20:00 Dose: 500 ml Terbinafine HCl (Lamisil At) 1 applic TOP BID [facility] Last Admin: 04/22/17 09:42 Dose: 1 applic - Urinary Catheter Management Urethral Cath placed during this visit: yes Urethral indwelling: Yes Insertion date: 04/02/17 Insertion time: 22:20 Results 04/22/17 04:07 04/22/17 04:07 CBC 04/22/17 Range/Units 04:07 WBC 14.9 H (4.5-11.0) T/MM3 RBC 4.20 L (4.50-5.90) M/MM3 Hgb 12.9 L (13.5-17.5) GM/DL Hct 41.6 (41-53) % Plt Count 137 (130-400) T/MM3 Neut # (Auto) 10.9 H (1.8-7.7) T/MM3 Lymph # (Auto) 2.7 (1-4.8) T/MM3 [place] # (Auto) 0.7 (0-0.8) T/MM3 Eos # (Auto) 0.3 (0-0.5) T/MM3 Baso # (Auto) 0.1 (0-0.2) T/MM3 Comprehensive Metabolic Panel 04/22/17 Range/Units 04:07 Sodium 141 (134-144) MEQ/L Potassium 4.1 (3.6-5) MEQ/L Chloride 102 (98-107) MEQ/L Carbon Dioxide 32 H (22-30) MEQ/L BUN 25.0 H (9-20) MG/DL Creatinine 0.5 L (0.8-1.5) MG/DL Glucose 168 H (75-110) MG/DL Calcium 8.6 (8.4-10.2) MG/DL Intake and Output 04/22/17 04/22/17 04/22/17 06:59 14:59 22:59 Intake Total 1891.333 / 1891.333 718.524 / 718.524 Output Total 1260 / 1260 70 / 70 Balance 631.333 / 631.333 648.524 / 648.524 Intake: IV 951.333 / 951.333 718.524 / 718.524 Dexmedetomidine 1,000 mcg In NS 248.0 / 248.0 179.607 / 179.607 250ml 250 ml @ 0.2 MCG/KG/HR 7 .47 mls/hr IV .Q24H PRN Rx#: [id number] FentaNYL 1,000 mcg In Ns 80 ml 80.0 / 80.0 25.834 / 25.834 @ Per Protocol IV .Q0M PRN Rx#: [id number] Meropenem 1 gm In Ns 100 ml @ 100 / 100 200 mls/hr IV Q8H [facility] Rx#: [id number] Midazolam 100 mg In RTU-Saline 40 / 40 13.083 / 13.083 0 ml @ Per Protocol IV .Q0M PRN Rx#:[id number] Vancomycin 2,500 mg In NS 500ml 483.333 / 483.333 500 / 500 500 ml @ 250 mls/hr IV Q8H [facility] Rx#:[id number] Tube Feeding 490 / 490 Left Nare 420 / 420 Oral 70 / 70 Intake, Gastric Tube Irrigant 450 / 450 Amount Left Nare 450 / 450 Output: Urine 70 / 70 Urine Amount (Catheter) 1260 / 1260 Other: Urine Appearance Sediment Sediment Urine Color Dark Yellow Dark Yellow Weight 294 lb 5.074 oz Patient Weight 04/23/17 06:59 Weight 294 lb 5.074 oz Laboratory Results - last 24 hr 04/21/17 04/21/17 04/22/17 18:17 21:23 00:03 WBC RBC Hgb Hct MCV MCH MCHC RDW Std Deviation Plt Count MPV Immature Gran % (Auto) Neut % (Auto) Lymph % (Auto) [place] % (Auto) Eos % (Auto) Baso % (Auto) Neut # (Auto) Lymph # (Auto) [place] # (Auto) Eos # (Auto) Baso # (Auto) Abs Immat Gran (auto) Turbidity Sodium Potassium Chloride Carbon Dioxide Anion Gap BUN Creatinine GFR Calculation BUN/Creatinine Ratio Glucose Glucometer 142 146 206 Calculated Osmolality Calcium Icterus Index Specimen Hemolysis 04/22/17 04/22/17 04/22/17 04:07 04:07 06:11 WBC 14.9 H RBC 4.20 L Hgb 12.9 L Hct 41.6 MCV 99.0 MCH 30.7 MCHC 31.0 RDW Std Deviation 50.7 H Plt Count 137 MPV 11.4 Immature Gran % (Auto) 1.0 H Neut % (Auto) 73.2 H Lymph % (Auto) 18.4 L [place] % (Auto) 4.4 Eos % (Auto) 2.2 Baso % (Auto) 0.8 Neut # (Auto) 10.9 H Lymph # (Auto) 2.7 [place] # (Auto) 0.7 Eos # (Auto) 0.3 Baso # (Auto) 0.1 Abs Immat Gran (auto) 0.15 H Turbidity < 20 Sodium 141 Potassium 4.1 Chloride 102 Carbon Dioxide 32 H Anion Gap 7 BUN 25.0 H Creatinine 0.5 L GFR Calculation 184 BUN/Creatinine Ratio 50 H Glucose 168 H Glucometer 211 Calculated Osmolality 279 Calcium 8.6 Icterus Index < 2 Specimen Hemolysis 16 04/22/17 12:00 WBC RBC Hgb Hct MCV MCH MCHC RDW Std Deviation Plt Count MPV Immature Gran % (Auto) Neut % (Auto) Lymph % (Auto) [place] % (Auto) Eos % (Auto) Baso % (Auto) Neut # (Auto) Lymph # (Auto) [place] # (Auto) Eos # (Auto) Baso # (Auto) Abs Immat Gran (auto) Turbidity Sodium Potassium Chloride Carbon Dioxide Anion Gap BUN Creatinine GFR Calculation BUN/Creatinine Ratio Glucose Glucometer 184 Calculated Osmolality Calcium Icterus Index Specimen Hemolysis Assessment and Plan - Assessment and Plan (1) Community acquired pneumonia Current visit: No Status: Acute (2) Acute respiratory failure with hypoxia Current visit: Yes Status: Acute (3) Bradycardia Current visit: Yes Status: Acute - Assessment and Plan 04/06/17 Possibly related to anesthesia Or vagal with positioning for chest x-ray - NSR now, EKG obtained is WNL - Echo reviewed remotely by . He reports: EF 65%, Mild TR, Mild MR, PAP 42, trace PI, essentially the same as on 04/03/17. - Obtain TSH with reflex T4. K+ 4.6, Mag 2.6 today - Continue to monitor cardiac telemetry 04/08/17 No further bradycardia or pauses seen on telemetry - Will continue to monitor telemetry 04/09/2017 Bradycardia: On 04/06/2017 he went bradycardic. Likely due to vagal response with repositioning. 04/06/2017 ECG: NSR. Echo: EF 65%, mild MR/TR, PAP 42 K+, Mag and TSH wnl. Tele: SR - no further bradycardia or pauses seen on telemetry. Respiratory failure/ARDS/pneumonia On vent - FIO2 80%, sedated on versed and fentanyl. Receiving Lasix 20mg IV BID per pulm for large U/O. 04/10/2017 Bradycardia - no further bradycardia or pauses Respiratory failure/ARDS/pneumonia - On vent 50%. Sedated on versed and fentanyl - receiving lasix 20mg IV BID per pulm. Fluid overload - EF 65%. mild PHTN, PAP 42. requiring vent support. - 04/09 I/O: 8131/2444 (-[id number]). Wt down 23 kg since admit. k+ and Cr wnl. 04/09 CXR: atelectasis and effusion. . - cont lasix per pulm. 04/15/17 Remains intubated - Slight ST elevation noted on Telemetry - EKG now - Check troponin 04/16/16 Troponin negative - EKG show early repolarization - continue to monitor cardiac telemetry 04/17/16 Remains on the vent, 40% today. - Stable from cardiac standpoint we will continue to monitor 04/18/16 No changes to plan of care regarding cardiology - Will continue to monitor cardiac telemetry. 04/22/16 Remains on the vent, 40%, PEEP of 5 today. Telemetry and EKG remains stable, will continue to monitor Thank you for allowing us to participate in the care of this patient, we will follow along with you. Hospital Course Summary Disclaimer: The visit summary below is not to be considered part of the above Progress Note. Hospital Course: Assessment Respiratory insufficiency with hypoxia Sepsis secondary to pneumonia Manifestations: Tachycardia, tachypnea, leukocytosis Community-acquired pneumonia Anasarca Morbid obesity-BMI 42.0 Hyperglycemia-POA Tinea corporis Tobacco dependence 04/02/17 Hospital admission Admit to inpatient status under the care of the hospitalist service, Dr. Lewis attending. It is expected that his stay will exceed 2 overnights given his sepsis secondary to pneumonia and overall condition. SCDs and Lovenox for DVT prophylaxis Urinalysis for laboratory completeness. Repeat CBC and BMP in am to follow leukocytosis, renal function and electrolytes. Schedule echocardiogram to evaluate cardiac structure and function given his anasarca and dyspnea. Oxygen, DuoNeb treatments, Acapella, and guaifenesin for respiratory symptoms. Continue Rocephin and Zithromax initiated and the emergency room. Blood cultures were drawn prior to antibiotic initiation. RT consult tobacco cessation. Terbinafine topically for his tinea corporis Patient wishes to be a full code. Case discussed with Dr. Lewis. Case management will need to assist in finding patient a PCP. 04/04/17 12:03 Plan The patient continues to require mechanical ventilation and is on 100% FiO2 regarding his ARDS and pneumonia. Continue ventilator support - Dr. Pineda is following. His help is greatly appreciated. Continue Levaquin initiated 04/03/2017 and Rocephin initiated 04/02/2017 Continue Solu-Medrol Discussed with Dr. Pineda, will change Lovenox to prophylactic dose. Venous Doppler of the legs were negative for DVT. No signs of right heart strain on echocardiogram. Advance tube feedings Nutren luminary 1.5 to goal of 70 ML's per hour. Start free water 400 ML's every 8 hours. DC IV fluids Vishal blood pressure off of IV fluids. May need to initiate antihypertensive Start Lantus 10 units subcutaneous daily. Increase to medium dose sliding scale insulin. Continue Lasix 40 mg IV every 12. Patient is diuresing well. Check CBC and renal panel tomorrow. Chest x-ray tomorrow. Assess with Dr. Pineda, the patient's significant other, and the patient's nurse. 04/05/17 09:31 Plan The patient continues to require mechanical ventilation and is now on 95% FiO2 regarding his ARDS and pneumonia. Continue ventilator support per Dr. Pineda Continue Levaquin initiated 04/03/2017 and Rocephin initiated 04/02/2017. Continue Solu-Medrol Regarding hyperkalemia, will try to change to feeding to a renal tube feeds. Check ABG. (7.32/79/103 on 95% FiO2) Recheck basic metabolic profile later today. May need to increase fluids followed by diuresis for hyperkalemia Increase Lantus to 20 units subcutaneous daily for hyperglycemia. Increase sliding scale insulin to high dose Start Reglan and Dulcolax suppositories to stimulate GI tract. Decrease tube feed rate to 50 ML's for now. Greater than 40 minutes critical care time. 04/07/2017 Plan The patient continues to require mechanical ventilation and FiO2 100% regarding his ARDS and pneumonia. The patient has tolerated discontinuation of propofol and initiation of Versed. The patient is tolerating his tube feedings. Will advance as tolerated. Will increase free water to 200 ML's every 4 hours and decrease Lasix to 20 mg IV every 12 regarding his elated sodium. Continue to monitor blood pressure closely. Continue Levaquin initiated 04/03/2017 and Rocephin initiated 04/02/2017. Continue Solu-Medrol Regarding hyperkalemia-is resolved. Continue renal tube feeds Continue Reglan and Dulcolax suppositories to stimulate GI tract. Greater than 45 minutes of critical care time spent seeing and evaluating the patient. The patient's brother was updated. 04/08/17 09:49 Plan Overall, the patient is stable. He is diuresing well. Weight is down approximately 22 kg over the past 1 week. He has been on the ventilator for one week now. FiO2 turned down to 95% this morning. Consulted Dr. Johnson regarding positive blood culture and antibiotic recommendations The patient continues to require mechanical ventilation regarding his ARDS and pneumonia. FiO2 down to 95% this morning The patient is tolerating his tube feedings. Will advance as tolerated to goal. Will increase free water to 250 ML's every 4 hours. Continue Lasix 20 mg IV every 12. Continue to monitor blood pressure closely. Continue Levaquin initiated 04/03/2017 and Rocephin initiated 04/02/2017. Continue Solu-Medrol and breathing treatments Regarding hyperkalemia- Continue renal tube feeds Continue Reglan and Dulcolax suppositories to stimulate GI tract. Regarding possible mild upper GI bleed, will Gastric occult NG drainage. Hold Lovenox for now. Greater than 45 minutes of critical care time spent seeing and evaluating the patient. 04/09/17 Overall, the patient is improving. FiO2 is now down to 70%. The patient appears to be nearly euvolemic at this time. We'll continue Lasix. Weight is down approximately 22 kg over the past [address] Johnson recommends approximately 10 days of broad-spectrum antibiotics for his pneumonia. She recommended discontinuation of vancomycin today with corynebacterium found in one of 2 blood cultures on April 06 most likely being a contaminant. Currently at goal rate on tube feedings. He is on a renal formulation because of hyperkalemia. May need to increase free water further if sodium does not improving. Continue Levaquin initiated 04/03/2017 and Rocephin initiated 04/02/2017. Rocephin discontinued on 04/06/2017 and cefepime started. Vancomycin started and discontinued on 04/09/2017 Continue Solu-Medrol and breathing treatments Add MiraLAX for constipation Continue Lovenox for DVT prophylaxis (gastric occult from NG drainage was negative) 04/10/17 Debbie Continue with levofloxacin and cefepime for antimicrobial coverage - ID recommending an approximate 10 day course. Will continue with Solu-Medrol at 40mg IV q 8 hours -started on 03/26/17. Potentially could start to decrease. Continue neb treatments and pulmonary toilet. Nutritional support with DH tube feeding. Potassium normal. LFT with gradual increase-potential fatty liver secondary to continuous TF. Continue Lasix. Weight is down approximately 22 kg over the past 1 week. Renal status stable. Blood sugars showing persistent elevation in the low to mid 200's. Will increase Lantus to 34 units at night. 04/11/17 Continue with levofloxacin and cefepime for antimicrobial coverage - ID recommending an approximate 10 day course. With increased temp, persistent leukocytosis, steroid and antibiotic use will start Diflucan 200mg IV daily. Continue mechanical ventilation for respiratory support. Pulm decreased Solu-Medrol to 40mg IV q 12 hours. Continue neb treatments and pulmonary toilet. Slowly able to wean down FIO2. Nutritional support with DH tube feeding. Continue Lasix 20 mg IV BID. Creatinine and BP stable. Potassium with increase to 5.4 this am. Blood sugars still with elevations - will continue current regimen, watching for decrease with decreased Solu-Medrol. 04/12/17 Continue with levofloxacin and cefepime for antimicrobial coverage - ID recommending an approximate 10 day course. Diflucan 200mg IV daily started 04/11/17. Continue mechanical ventilation for respiratory support - Solu-Medrol at 40mg IV q 12 hours. O2 needs increased today - likely mucous plugging. Creatinine with increase to 1.1. Edema much improved. Will decrease Lasix to 20mg daily to minimize overdiuresis. Blood sugars still with elevations - Increase Lantus to 38 units at HS. 04/13/17 Continue with levofloxacin and cefepime for antimicrobial coverage - ID recommending an approximate 10 day course. Diflucan 200mg IV daily started 04/11/17. Vancomycin started on 04/12/17 secondary to temp elevations. Continue mechanical ventilation for respiratory support. Increasing FIO2 - needing 100%. Sputum culture ordered by Dr Pineda. Solu-Medrol at 40mg IV q 12 hours. Continue neb treatments and pulmonary toilet. Nutritional support with DH tube feeding. Creatinine did decrease to 0.8. With increasing oxygen needs and increased intake as compared to output past 2 days will give 20mg IV Lasix. Blood sugars still with elevations - Increase Lantus to 42 units at HS. 04/14/17 Continue with levofloxacin and cefepime for antimicrobial coverage Diflucan 200mg IV daily started 04/11/17. Vancomycin started on 04/12/17 secondary to temp elevations. Continue mechanical ventilation for respiratory support. Sputum culture ordered 04/13 with results pending. Solu-Medrol at 40mg IV q 12 hours. Nutritional support with DH tube feeding. Potassium and sodium normal. Blood sugars still with elevations - Increase Lantus to 46 units at HS. Doppler legs pending - ? DVT as more pedal edema present. 04/15/17 Continue with levofloxacin and cefepime for antimicrobial coverage - ID recommending an approximate 10 day course. Diflucan 200mg IV daily started 04/11/17. Vancomycin started on 04/12/17 secondary to temp elevations. Continue mechanical ventilation for respiratory support. FIO2 needs decreasing - pulm weaning. Secretions decreasing. Sputum culture ordered 04/13 with normal respiratory jesus. Solu-Medrol at 40mg IV q 12 hours. Continue neb treatments and pulmonary toilet. Nutritional support with DH tube feeding. Potassium and sodium normal. Blood sugars still with elevations - Increase Lantus to 50 units at HS. Increase Lasix back to 20mg IV BID due to increasing edema to legs. Doppler legs from 04/14/17 showing no DVT - continue Lovenox 40mg SQ daily and SCD. 04/16/17 ID recommending stopping antibiotics and observing. Continue mechanical ventilation for respiratory support. FIO2 needs decreasing - pulm weaning. Secretions decreasing. Solu-Medrol at 40mg IV q 12 hours. Continue neb treatments and pulmonary toilet. Nutritional support with DH tube feeding. Potassium and sodium normal. Blood sugars still with elevations - Increase Lantus to 50 units at HS. Increase Lasix back to 20mg IV BID due to increasing edema to legs. Doppler legs from 04/14/17 showing no DVT - continue Lovenox 40mg SQ daily and SCD. Condition critical, showing improvement from the weekend. Continued CCU care needed secondary to respiratory failure and mechanical ventilation. 04/17/17 Observing off antibiotics. Continue mechanical ventilation for respiratory support. FIO2 needs decreasing - pulm weaning. Secretions decreasing. Solu-Medrol at 40mg IV daily. Continue neb treatments and pulmonary toilet. Nutritional support with DH tube feeding. Monitor potassium and sodium. Increasing TF to 65 ml/hr. Blood sugars still with elevations - Increase Lantus to 50 units at HS. Increase scheduled Novolog and sliding scale. Increase Lasix back to 20mg IV BID due to increasing edema to legs. 04/19 Observing off antibiotics. Recheck CBC. Steroids DC'd. Febrile today. Repeat cx. Continue mechanical ventilation for respiratory support. FIO2 needs decreasing - pulm holding off on weaning d/t fever. Solu-Medrol at 40mg IV daily. Continue neb treatments and pulmonary toilet. Nutritional support with DH tube feeding. Monitor potassium and sodium. TF goal is 65 ml/hr. Blood sugars may improve off solu-medrol. Monitor. Continuing Lantus, scheduled Novolog and sliding scale. Lasix at to 20mg IV BID due to edema to legs. Abdomen slightly distended. Bowels have slowed down on lower dose of Reglan. Will plan for daily suppository and continue MoM. 04/20 Vanco and cefepime restarted for fever, suspecting new pneumonia. Continue mechanical ventilation for respiratory support. FIO2 needs increasing, fever, pneumonia - pulm holding off on weaning. Solu-Medrol DC'd 04/20. Continue neb treatments and pulmonary toilet. Blood sugars trending down off solu-medrol. Monitor. Continuing Lantus, scheduled Novolog and sliding scale. Nutritional support with DH tube feeding. Monitor potassium and sodium. TF goal is 65 ml/hr. Lasix at to 20mg IV BID due to edema to legs. Abdomen slightly distended. Bowels have slowed down on lower dose of Reglan again, will increase to 10 mg iv q6 and monitor. Daily suppository and continue MoM. KUB does not show obstruction. Pharmacy out of nystatin s&s for thrush. Start Diflucan 04/21/17 Continue Vancomycin and cefepime - suspecting new pneumonia. Continue mechanical ventilation for respiratory support. FIO2 needs with slight improvement today. Continue neb treatments and pulmonary toilet. DH not flushing - will attempt to replace. If not able to restart TF would hold routine insulin and decrease Lantus to 15 units this evening to decrease potential for hypoglycemia. TF goal is 65 ml/hr. Lasix at to 20mg IV BID due to edema to legs. Creatinine, potassium, and BP stable. Discussed with Pulm about family concern regarding potential dental abscess - worry respiratory status not stable enough at this time to risk CT scan. <Ebenezer Mauricio - Last Filed: 04/23/17 09:38> Exam Vital signs: Temperature 101.3 F H 04/23/17 08:00 Pulse Rate 81 04/23/17 09:15 Respiratory Rate 25 H 04/23/17 09:15 Blood Pressure 117/62 04/23/17 09:00 Pulse Oximetry 95 04/23/17 09:15 - Urinary Catheter Management Urethral Cath placed during this visit: no Results 04/23/17 04:37 04/23/17 04:37 Cardiac Enzymes 04/23/17 Range/Units 04:37 AST 55 (17-59) U/L CBC 04/23/17 Range/Units 04:37 WBC 12.7 H (4.5-11.0) T/MM3 RBC 3.94 L (4.50-5.90) M/MM3 Hgb 12.3 L (13.5-17.5) GM/DL Hct 39.1 L (41-53) % Plt Count 133 (130-400) T/MM3 Neut # (Auto) 9.0 H (1.8-7.7) T/MM3 Lymph # (Auto) 2.6 (1-4.8) T/MM3 [place] # (Auto) 0.6 (0-0.8) T/MM3 Eos # (Auto) 0.4 (0-0.5) T/MM3 Baso # (Auto) 0.1 (0-0.2) T/MM3 Comprehensive Metabolic Panel 04/23/17 Range/Units 04:37 Sodium 141 (134-144) MEQ/L Potassium 3.5 L (3.6-5) MEQ/L Chloride 104 (98-107) MEQ/L Carbon Dioxide 30 (22-30) MEQ/L BUN 24.0 H (9-20) MG/DL Creatinine 0.5 L (0.8-1.5) MG/DL Glucose 181 H (75-110) MG/DL Calcium 8.4 (8.4-10.2) MG/DL AST 55 (17-59) U/L ALT 120 H (21-72) U/L Alkaline Phosphatase 58 (38-126) U/L Total Protein 6.5 (6.3-8.2) G/DL Albumin 3.0 L (3.5-5.0) G/DL Intake and Output 04/22/17 04/23/17 04/23/17 22:59 06:59 14:59 Intake Total 1791.249 / 2710.529 1566.483 / 2014.483 430 / 430 Output Total 1300 / 1300 526 / 526 290 / 290 Balance 491.249 / 722.782 8830.483 / 1489.483 140 / 140 Intake: IV 811.249 / 648.572 5228.483 / 1035.483 Dexmedetomidine 1,000 mcg In NS 136.5 / 136.5 252.483 / 252.483 250ml 250 ml @ 0.2 MCG/KG/HR 7 .47 mls/hr IV .Q24H PRN Rx#: [id number] FentaNYL 1,000 mcg In Ns 80 ml 50.666 / 50.666 138 / 138 @ Per Protocol IV .Q0M PRN Rx#: [id number] Meropenem 1 gm In Ns 100 ml @ 100 / 100 100 / 100 200 mls/hr IV Q8H BOBBY Rx#: [id number] Midazolam 100 mg In RTU-Saline 24.083 / 24.083 45 / 45 0 ml @ Per Protocol IV .Q0M PRN Rx#:[id number] Vancomycin 2,500 mg In NS 500ml 500 / 500 500 / 500 500 ml @ 250 mls/hr IV Q8H BOBBY Rx#:[id number] Tube Feeding 780 / 780 580 / 580 180 / 180 Left Nare 480 / 480 480 / 480 180 / 180 Oral 300 / 300 100 / 100 Intake, Gastric Tube Irrigant 200 / 200 400 / 400 250 / 250 Amount Left Nare 200 / 200 400 / 400 Oral 250 / 250 Output: Urine Amount (Catheter) 1300 / 1300 526 / 526 290 / 290 Other: Urine Appearance Clear Sediment Urine Color Yellow Dark Yellow Stool Color Brown Stool Consistency Liquid Size of Bowel Movement Large Weight 128.5 kg Patient Weight 04/24/17 06:59 Weight 128.5 kg Assessment and Plan - Assessment and Plan (1) Community acquired pneumonia Current visit: No Status: Acute (2) Acute respiratory failure with hypoxia Current visit: Yes Status: Acute (3) Bradycardia Current visit: Yes Status: Acute - Attestation Attestation Narrative: 04/23/17 09:38 Recommendation After examining the patient I agree with the above assessment. I am involved in the formulation of the patient's plan of care. Hospital Course Summary Disclaimer: The visit summary below is not to be considered part of the above Progress Note.
[2017-04-22] MEDS: RTU SALINE IV PRN (16:11)
[2017-04-22] MEDS: MIDAZOLAM IV PRN (16:11)
--- NOTE | 2017-04-22 18:25 | General Surgery Consult Note ---
Consult date: 04/22/17 Attending Physician: Wally Lewis MD Reason for consult: other (PEG and Tracheostomy) PFSH Morbid obesity Surgical History: appy Family History: father- CAD, DM Mother - healthy - Social History Smoking status: Current every day smoker (1ppd x 20 yrs) Household members: children (he is a single dad) Current occupation: [employer] Current residence: Apartment/Private Home Medications Home Medications Medication Instructions Recorded Confirmed Type Acetaminophen [Tylenol] 500 mg PO TID 04/02/17 04/02/17 History Ibuprofen 200 mg PO TID 04/02/17 04/02/17 History Allergies Allergy/AdvReac Type Severity Reaction Status Date / Time adhesive tape Allergy Mild Rash Verified 04/04/17 10:01 Penicillins Allergy Mild Rash Verified 04/02/17 20:06 Review of Systems 10-point ROS: not fully reviewed ROS unobtainable: due to endotracheal tube (comatose) - General General: Present: fever (currently), night sweats (currently) - Respiratory Respiratory: Present: difficulty breathing (upon admission to ED and on the ventilator currently) - Gastrointestinal Gastrointestinal: Present: other (on tube feedings currently while intubated) - Vital Signs Last Vital Signs Temp 101.8 F H 04/22/17 11:00 Pulse 82 04/22/17 17:51 Resp 25 H 04/22/17 17:51 BP 110/58 04/22/17 17:30 Pulse Ox 91 04/22/17 17:51 - Laboratory Result Diagrams: 04/22/17 04:07 04/22/17 04:07 - Microbiogy Microbiology 04/19/17 13:37 Peripheral/Iv Start Blood Culture - Preliminary No Growth After 3 Days 04/19/17 13:26 Port/Picc Gram Stain - Final 04/19/17 13:26 Port/Picc Blood Culture - Final Coag negative Staphylococcus 04/21/17 13:33 Blood Cryptococcal Antigen (Serum) - Final General Surgery Results - Results Labs: 04/22/17 04:07 04/22/17 04:07 Microbiology: Microbiology 04/19/17 13:37 Peripheral/Iv Start Blood Culture - Preliminary No Growth After 3 Days 04/19/17 13:26 Port/Picc Gram Stain - Final 04/19/17 13:26 Port/Picc Blood Culture - Final Coag negative Staphylococcus 04/21/17 13:33 Blood Cryptococcal Antigen (Serum) - Final Hospital Course Summary Disclaimer: The visit summary below is not to be considered part of the above Progress Note. Hospital Course: Assessment Respiratory insufficiency with hypoxia Sepsis secondary to pneumonia Manifestations: Tachycardia, tachypnea, leukocytosis Community-acquired pneumonia Anasarca Morbid obesity-BMI 42.0 Hyperglycemia-POA Tinea corporis Tobacco dependence 04/02/17 Hospital admission Admit to inpatient status under the care of the hospitalist service, Dr. Lewis attending. It is expected that his stay will exceed 2 overnights given his sepsis secondary to pneumonia and overall condition. SCDs and Lovenox for DVT prophylaxis Urinalysis for laboratory completeness. Repeat CBC and BMP in am to follow leukocytosis, renal function and electrolytes. Schedule echocardiogram to evaluate cardiac structure and function given his anasarca and dyspnea. Oxygen, DuoNeb treatments, Acapella, and guaifenesin for respiratory symptoms. Continue Rocephin and Zithromax initiated and the emergency room. Blood cultures were drawn prior to antibiotic initiation. RT consult tobacco cessation. Terbinafine topically for his tinea corporis Patient wishes to be a full code. Case discussed with Dr. Lewis. Case management will need to assist in finding patient a PCP. 04/04/17 12:03 Plan The patient continues to require mechanical ventilation and is on 100% FiO2 regarding his ARDS and pneumonia. Continue ventilator support - Dr. Pineda is following. His help is greatly appreciated. Continue Levaquin initiated 04/03/2017 and Rocephin initiated 04/02/2017 Continue Solu-Medrol Discussed with Dr. Pineda, will change Lovenox to prophylactic dose. Venous Doppler of the legs were negative for DVT. No signs of right heart strain on echocardiogram. Advance tube feedings Nutren luminary 1.5 to goal of 70 ML's per hour. Start free water 400 ML's every 8 hours. DC IV fluids Vishal blood pressure off of IV fluids. May need to initiate antihypertensive Start Lantus 10 units subcutaneous daily. Increase to medium dose sliding scale insulin. Continue Lasix 40 mg IV every 12. Patient is diuresing well. Check CBC and renal panel tomorrow. Chest x-ray tomorrow. Assess with Dr. Pineda, the patient's significant other, and the patient's nurse. 04/05/17 09:31 Plan The patient continues to require mechanical ventilation and is now on 95% FiO2 regarding his ARDS and pneumonia. Continue ventilator support per Dr. Pineda Continue Levaquin initiated 04/03/2017 and Rocephin initiated 04/02/2017. Continue Solu-Medrol Regarding hyperkalemia, will try to change to feeding to a renal tube feeds. Check ABG. (7.32/79/103 on 95% FiO2) Recheck basic metabolic profile later today. May need to increase fluids followed by diuresis for hyperkalemia Increase Lantus to 20 units subcutaneous daily for hyperglycemia. Increase sliding scale insulin to high dose Start Reglan and Dulcolax suppositories to stimulate GI tract. Decrease tube feed rate to 50 ML's for now. Greater than 40 minutes critical care time. 04/07/2017 Plan The patient continues to require mechanical ventilation and FiO2 100% regarding his ARDS and pneumonia. The patient has tolerated discontinuation of propofol and initiation of Versed. The patient is tolerating his tube feedings. Will advance as tolerated. Will increase free water to 200 ML's every 4 hours and decrease Lasix to 20 mg IV every 12 regarding his elated sodium. Continue to monitor blood pressure closely. Continue Levaquin initiated 04/03/2017 and Rocephin initiated 04/02/2017. Continue Solu-Medrol Regarding hyperkalemia-is resolved. Continue renal tube feeds Continue Reglan and Dulcolax suppositories to stimulate GI tract. Greater than 45 minutes of critical care time spent seeing and evaluating the patient. The patient's brother was updated. 04/08/17 09:49 Plan Overall, the patient is stable. He is diuresing well. Weight is down approximately 22 kg over the past 1 week. He has been on the ventilator for one week now. FiO2 turned down to 95% this morning. Consulted Dr. Johnson regarding positive blood culture and antibiotic recommendations The patient continues to require mechanical ventilation regarding his ARDS and pneumonia. FiO2 down to 95% this morning The patient is tolerating his tube feedings. Will advance as tolerated to goal. Will increase free water to 250 ML's every 4 hours. Continue Lasix 20 mg IV every 12. Continue to monitor blood pressure closely. Continue Levaquin initiated 04/03/2017 and Rocephin initiated 04/02/2017. Continue Solu-Medrol and breathing treatments Regarding hyperkalemia- Continue renal tube feeds Continue Reglan and Dulcolax suppositories to stimulate GI tract. Regarding possible mild upper GI bleed, will Gastric occult NG drainage. Hold Lovenox for now. Greater than 45 minutes of critical care time spent seeing and evaluating the patient. 04/09/17 Overall, the patient is improving. FiO2 is now down to 70%. The patient appears to be nearly euvolemic at this time. We'll continue Lasix. Weight is down approximately 22 kg over the past [address] Johnson recommends approximately 10 days of broad-spectrum antibiotics for his pneumonia. She recommended discontinuation of vancomycin today with corynebacterium found in one of 2 blood cultures on April 06 most likely being a contaminant. Currently at goal rate on tube feedings. He is on a renal formulation because of hyperkalemia. May need to increase free water further if sodium does not improving. Continue Levaquin initiated 04/03/2017 and Rocephin initiated 04/02/2017. Rocephin discontinued on 04/06/2017 and cefepime started. Vancomycin started and discontinued on 04/09/2017 Continue Solu-Medrol and breathing treatments Add MiraLAX for constipation Continue Lovenox for DVT prophylaxis (gastric occult from NG drainage was negative) 04/10/17 Debbie Continue with levofloxacin and cefepime for antimicrobial coverage - ID recommending an approximate 10 day course. Will continue with Solu-Medrol at 40mg IV q 8 hours -started on 03/26/17. Potentially could start to decrease. Continue neb treatments and pulmonary toilet. Nutritional support with DH tube feeding. Potassium normal. LFT with gradual increase-potential fatty liver secondary to continuous TF. Continue Lasix. Weight is down approximately 22 kg over the past 1 week. Renal status stable. Blood sugars showing persistent elevation in the low to mid 200's. Will increase Lantus to 34 units at night. 04/11/17 Continue with levofloxacin and cefepime for antimicrobial coverage - ID recommending an approximate 10 day course. With increased temp, persistent leukocytosis, steroid and antibiotic use will start Diflucan 200mg IV daily. Continue mechanical ventilation for respiratory support. Pulm decreased Solu-Medrol to 40mg IV q 12 hours. Continue neb treatments and pulmonary toilet. Slowly able to wean down FIO2. Nutritional support with DH tube feeding. Continue Lasix 20 mg IV BID. Creatinine and BP stable. Potassium with increase to 5.4 this am. Blood sugars still with elevations - will continue current regimen, watching for decrease with decreased Solu-Medrol. 04/12/17 Continue with levofloxacin and cefepime for antimicrobial coverage - ID recommending an approximate 10 day course. Diflucan 200mg IV daily started 04/11/17. Continue mechanical ventilation for respiratory support - Solu-Medrol at 40mg IV q 12 hours. O2 needs increased today - likely mucous plugging. Creatinine with increase to 1.1. Edema much improved. Will decrease Lasix to 20mg daily to minimize overdiuresis. Blood sugars still with elevations - Increase Lantus to 38 units at HS. 04/13/17 Continue with levofloxacin and cefepime for antimicrobial coverage - ID recommending an approximate 10 day course. Diflucan 200mg IV daily started 04/11/17. Vancomycin started on 04/12/17 secondary to temp elevations. Continue mechanical ventilation for respiratory support. Increasing FIO2 - needing 100%. Sputum culture ordered by Dr Pineda. Solu-Medrol at 40mg IV q 12 hours. Continue neb treatments and pulmonary toilet. Nutritional support with DH tube feeding. Creatinine did decrease to 0.8. With increasing oxygen needs and increased intake as compared to output past 2 days will give 20mg IV Lasix. Blood sugars still with elevations - Increase Lantus to 42 units at HS. 04/14/17 Continue with levofloxacin and cefepime for antimicrobial coverage Diflucan 200mg IV daily started 04/11/17. Vancomycin started on 04/12/17 secondary to temp elevations. Continue mechanical ventilation for respiratory support. Sputum culture ordered 04/13 with results pending. Solu-Medrol at 40mg IV q 12 hours. Nutritional support with DH tube feeding. Potassium and sodium normal. Blood sugars still with elevations - Increase Lantus to 46 units at HS. Doppler legs pending - ? DVT as more pedal edema present. 04/15/17 Continue with levofloxacin and cefepime for antimicrobial coverage - ID recommending an approximate 10 day course. Diflucan 200mg IV daily started 04/11/17. Vancomycin started on 04/12/17 secondary to temp elevations. Continue mechanical ventilation for respiratory support. FIO2 needs decreasing - pulm weaning. Secretions decreasing. Sputum culture ordered 04/13 with normal respiratory jesus. Solu-Medrol at 40mg IV q 12 hours. Continue neb treatments and pulmonary toilet. Nutritional support with DH tube feeding. Potassium and sodium normal. Blood sugars still with elevations - Increase Lantus to 50 units at HS. Increase Lasix back to 20mg IV BID due to increasing edema to legs. Doppler legs from 04/14/17 showing no DVT - continue Lovenox 40mg SQ daily and SCD. 04/16/17 ID recommending stopping antibiotics and observing. Continue mechanical ventilation for respiratory support. FIO2 needs decreasing - pulm weaning. Secretions decreasing. Solu-Medrol at 40mg IV q 12 hours. Continue neb treatments and pulmonary toilet. Nutritional support with DH tube feeding. Potassium and sodium normal. Blood sugars still with elevations - Increase Lantus to 50 units at HS. Increase Lasix back to 20mg IV BID due to increasing edema to legs. Doppler legs from 04/14/17 showing no DVT - continue Lovenox 40mg SQ daily and SCD. Condition critical, showing improvement from the weekend. Continued CCU care needed secondary to respiratory failure and mechanical ventilation. 04/17/17 Observing off antibiotics. Continue mechanical ventilation for respiratory support. FIO2 needs decreasing - pulm weaning. Secretions decreasing. Solu-Medrol at 40mg IV daily. Continue neb treatments and pulmonary toilet. Nutritional support with DH tube feeding. Monitor potassium and sodium. Increasing TF to 65 ml/hr. Blood sugars still with elevations - Increase Lantus to 50 units at HS. Increase scheduled Novolog and sliding scale. Increase Lasix back to 20mg IV BID due to increasing edema to legs. 04/19 Observing off antibiotics. Recheck CBC. Steroids DC'd. Febrile today. Repeat cx. Continue mechanical ventilation for respiratory support. FIO2 needs decreasing - pulm holding off on weaning d/t fever. Solu-Medrol at 40mg IV daily. Continue neb treatments and pulmonary toilet. Nutritional support with DH tube feeding. Monitor potassium and sodium. TF goal is 65 ml/hr. Blood sugars may improve off solu-medrol. Monitor. Continuing Lantus, scheduled Novolog and sliding scale. Lasix at to 20mg IV BID due to edema to legs. Abdomen slightly distended. Bowels have slowed down on lower dose of Reglan. Will plan for daily suppository and continue MoM. 04/20 Vanco and cefepime restarted for fever, suspecting new pneumonia. Continue mechanical ventilation for respiratory support. FIO2 needs increasing, fever, pneumonia - pulm holding off on weaning. Solu-Medrol DC'd 04/20. Continue neb treatments and pulmonary toilet. Blood sugars trending down off solu-medrol. Monitor. Continuing Lantus, scheduled Novolog and sliding scale. Nutritional support with DH tube feeding. Monitor potassium and sodium. TF goal is 65 ml/hr. Lasix at to 20mg IV BID due to edema to legs. Abdomen slightly distended. Bowels have slowed down on lower dose of Reglan again, will increase to 10 mg iv q6 and monitor. Daily suppository and continue MoM. KUB does not show obstruction. Pharmacy out of nystatin s&s for thrush. Start Diflucan 04/21/17 Continue Vancomycin and cefepime - suspecting new pneumonia. Continue mechanical ventilation for respiratory support. FIO2 needs with slight improvement today. Continue neb treatments and pulmonary toilet. DH not flushing - will attempt to replace. If not able to restart TF would hold routine insulin and decrease Lantus to 15 units this evening to decrease potential for hypoglycemia. TF goal is 65 ml/hr. Lasix at to 20mg IV BID due to edema to legs. Creatinine, potassium, and BP stable. Discussed with Pulm about family concern regarding potential dental abscess - worry respiratory status not stable enough at this time to risk CT scan.
[2017-04-22] MEDS ORDERED: FUROSEMIDE 20 MG/2 ML INJECTION IVP ONE (18:34)
--- NOTE | 2017-04-22 18:47 | Progress Note ---
- Date 04/22/17 Subjective: F/U: Acute respiratory failure, ARDS, Pneumonia Sedated on vent. DH replaced and TF running well. No stool output-some smears. FIO2 decreased to 40%. HR/BP stable-urine output less than intake. Temp elevations noted. Objective Vital signs: Temperature 101.8 F H 04/22/17 11:00 Pulse Rate 82 04/22/17 17:51 Respiratory Rate 25 H 04/22/17 17:51 Blood Pressure 110/58 04/22/17 17:30 Pulse Oximetry 91 04/22/17 17:51 Rhythm: Normal Sinus Rhythm Height/Weight/BMI: Height 1.8 m Weight 133.5 kg Body Mass Index 51.2 - Constitutional Present: well nourished, well developed, average body habitus - Routine HEENT Exam Head: Present: normocephalic, atraumatic Eye: Present: EOMI, PERRL - Routine Respiratory Exam Present: patient mechanically ventilated. Absent: rales, rhonchi, stridor - Routine Cardiovascular Exam Present: RRR, no murmur - Routine Abdominal Exam Present: soft, distended. Absent: normoactive bowel sounds (decreased ) - Routine Exam Comments: Walker present - Routine Extremities Exam Present: edema (+1 pedal edema bilaterally), pulses intact. Absent: cyanosis, clubbing - Routine Skin Exam Present: warm - Routine Neurological Exam Sedated - Routine Psychiatric Exam Comments: Sedated Results - Labs CBC & Chem 7: 04/22/17 04:07 04/22/17 04:07 Microbiology Results: Microbiology 04/19/17 13:37 Peripheral/Iv Start Blood Culture - Preliminary No Growth After 3 Days 04/19/17 13:26 Port/Picc Gram Stain - Final 04/19/17 13:26 Port/Picc Blood Culture - Final Coag negative Staphylococcus 04/21/17 13:33 Blood Cryptococcal Antigen (Serum) - Final 04/19/17 15:45 Sputum, Suctioned Gram Stain - Final 04/19/17 15:45 Sputum, Suctioned Sputum Culture - Final Normal Respiratory Jesus 04/13/17 14:50 Sputum, Suctioned Gram Stain - Final 04/13/17 14:50 Sputum, Suctioned Sputum Culture - Final Normal Respiratory Jesus Present 04/09/17 10:00 Port/Picc Blood Culture - Final No Growth After 5 Days 04/09/17 09:24 Port/Picc Blood Culture - Final No Growth After 5 Days 04/06/17 10:37 Port/Picc Gram Stain - Final 04/06/17 10:37 Port/Picc Blood Culture - Final Corynebacterium species 04/06/17 11:03 Port/Picc Blood Culture - Final No Growth After 5 Days 04/07/17 08:43 Nasopahrynx Gram Stain - Final 04/07/17 08:43 Nasopahrynx Nasopharyngeal Culture - Final Normal Respiratory Jesus 04/03/17 11:30 Sputum, Suctioned Gram Stain - Final 04/03/17 11:30 Sputum, Suctioned Sputum Culture - Final Normal Respiratory Jesus 04/03/17 10:38 Urine Legionella Urinary Antigen - Final 04/03/17 10:38 Urine Streptococcus pneumoniae Antigen (M - Final Assessment and Plan (1) Community acquired pneumonia Current visit: No Status: Acute Assessment and Plan: Assessment Acute hypoxic and hypercarbic respiratory failure-requiring mechanical ventilation. Intubated on 04/02/2017. Versed and fentanyl for sedation ARDS Community - acquired pneumonia-severe, requiring intubation. Levaquin initiated 04/03/2017 and Rocephin initiated 04/02/2017. Changed Rocephin to cefepime on . Sepsis secondary to pneumonia on admission Manifestations: Tachycardia, tachypnea, leukocytosis. Lactate normal on admission CODE BLUE/bradycardia versus short lasting asystole on 04/06/2017-patient received chest compressions 3 - EKG and troponin post event were normal Elevated d-dimer 555 - Lovenox therapeutic dose initiated 04/06/2017. Blood culture one of 2 on 04/06/2027 positive for corynebacterium -discussed with Dr. Johnson. This is most likely contaminant. Anasarca - improving; significant decrease of fluid since admit Echocardiogram revealed normal EF, left ventricular hypertrophy, PA pressure 41 with mild pulmonary hypertension (echo 04/06/2017 unchanged on recheck)-BNP has been normal. Diabetes Mellitus Type 2 - A1C 7.1 on admission (new diagnosis)-on Lantus, scheduled NovoLog and sliding scale insulin Possible COPD Probable obstructive sleep apnea Chronic back pain with high-dose ibuprofen and Tylenol use prior to admission Tinea corporis/ringworm? Tobacco dependence Hyperkalemia with potassium up to 5.5 of undetermined etiology (Not POA). Possible sinusitis right nears with copious thick nasal secretions - C/S showing normal jesus Mild hypernatremia (Not POA) Morbid obesity-BMI 42.0 Plan Continue Vancomycin and cefepime - WBC with decrease, still temp elevations. Continue mechanical ventilation for respiratory support. FIO2 needs down to 40% . Continue neb treatments and pulmonary toilet. DH replaced last night. Continuing with TF. TF goal is 65 ml/hr. Will give additional 20mg IV Lasix today as intake greater than output. Creatinine and potassium normal. Dr Ibarra consulted for possible trach - plans on 04/24. Recheck BMP in am secondary to medication use. Will repeat CBC in am due to leukocytosis. Case discussed with CCU nursing and family. Time spent with patient care 25 minutes. DVT Prophylaxis: SCD's, Lovenox Resuscitation Status: Full Code - Time spent with patient Time with patient PN: 25 minutes - Physician Narrative Physician: Wally Lewis MD Narrative: Date: 04/22/17 Time: 1843 Hospital Course Summary Disclaimer: The visit summary below is not to be considered part of the above Progress Note. Hospital Course: Assessment Respiratory insufficiency with hypoxia Sepsis secondary to pneumonia Manifestations: Tachycardia, tachypnea, leukocytosis Community-acquired pneumonia Anasarca Morbid obesity-BMI 42.0 Hyperglycemia-POA Tinea corporis Tobacco dependence 04/02/17 Hospital admission Admit to inpatient status under the care of the hospitalist service, Dr. Lewis attending. It is expected that his stay will exceed 2 overnights given his sepsis secondary to pneumonia and overall condition. SCDs and Lovenox for DVT prophylaxis Urinalysis for laboratory completeness. Repeat CBC and BMP in am to follow leukocytosis, renal function and electrolytes. Schedule echocardiogram to evaluate cardiac structure and function given his anasarca and dyspnea. Oxygen, DuoNeb treatments, Acapella, and guaifenesin for respiratory symptoms. Continue Rocephin and Zithromax initiated and the emergency room. Blood cultures were drawn prior to antibiotic initiation. RT consult tobacco cessation. Terbinafine topically for his tinea corporis Patient wishes to be a full code. Case discussed with Dr. Lewis. Case management will need to assist in finding patient a PCP. 04/04/17 12:03 Plan The patient continues to require mechanical ventilation and is on 100% FiO2 regarding his ARDS and pneumonia. Continue ventilator support - Dr. Pineda is following. His help is greatly appreciated. Continue Levaquin initiated 04/03/2017 and Rocephin initiated 04/02/2017 Continue Solu-Medrol Discussed with Dr. Pineda, will change Lovenox to prophylactic dose. Venous Doppler of the legs were negative for DVT. No signs of right heart strain on echocardiogram. Advance tube feedings Nutren luminary 1.5 to goal of 70 ML's per hour. Start free water 400 ML's every 8 hours. DC IV fluids Vishal blood pressure off of IV fluids. May need to initiate antihypertensive Start Lantus 10 units subcutaneous daily. Increase to medium dose sliding scale insulin. Continue Lasix 40 mg IV every 12. Patient is diuresing well. Check CBC and renal panel tomorrow. Chest x-ray tomorrow. Assess with Dr. Pineda, the patient's significant other, and the patient's nurse. 04/05/17 09:31 Plan The patient continues to require mechanical ventilation and is now on 95% FiO2 regarding his ARDS and pneumonia. Continue ventilator support per Dr. Pineda Continue Levaquin initiated 04/03/2017 and Rocephin initiated 04/02/2017. Continue Solu-Medrol Regarding hyperkalemia, will try to change to feeding to a renal tube feeds. Check ABG. (7.32/79/103 on 95% FiO2) Recheck basic metabolic profile later today. May need to increase fluids followed by diuresis for hyperkalemia Increase Lantus to 20 units subcutaneous daily for hyperglycemia. Increase sliding scale insulin to high dose Start Reglan and Dulcolax suppositories to stimulate GI tract. Decrease tube feed rate to 50 ML's for now. Greater than 40 minutes critical care time. 04/07/2017 Plan The patient continues to require mechanical ventilation and FiO2 100% regarding his ARDS and pneumonia. The patient has tolerated discontinuation of propofol and initiation of Versed. The patient is tolerating his tube feedings. Will advance as tolerated. Will increase free water to 200 ML's every 4 hours and decrease Lasix to 20 mg IV every 12 regarding his elated sodium. Continue to monitor blood pressure closely. Continue Levaquin initiated 04/03/2017 and Rocephin initiated 04/02/2017. Continue Solu-Medrol Regarding hyperkalemia-is resolved. Continue renal tube feeds Continue Reglan and Dulcolax suppositories to stimulate GI tract. Greater than 45 minutes of critical care time spent seeing and evaluating the patient. The patient's brother was updated. 04/08/17 09:49 Plan Overall, the patient is stable. He is diuresing well. Weight is down approximately 22 kg over the past 1 week. He has been on the ventilator for one week now. FiO2 turned down to 95% this morning. Consulted Dr. Johnson regarding positive blood culture and antibiotic recommendations The patient continues to require mechanical ventilation regarding his ARDS and pneumonia. FiO2 down to 95% this morning The patient is tolerating his tube feedings. Will advance as tolerated to goal. Will increase free water to 250 ML's every 4 hours. Continue Lasix 20 mg IV every 12. Continue to monitor blood pressure closely. Continue Levaquin initiated 04/03/2017 and Rocephin initiated 04/02/2017. Continue Solu-Medrol and breathing treatments Regarding hyperkalemia- Continue renal tube feeds Continue Reglan and Dulcolax suppositories to stimulate GI tract. Regarding possible mild upper GI bleed, will Gastric occult NG drainage. Hold Lovenox for now. Greater than 45 minutes of critical care time spent seeing and evaluating the patient. 04/09/17 Overall, the patient is improving. FiO2 is now down to 70%. The patient appears to be nearly euvolemic at this time. We'll continue Lasix. Weight is down approximately 22 kg over the past [address] Johnson recommends approximately 10 days of broad-spectrum antibiotics for his pneumonia. She recommended discontinuation of vancomycin today with corynebacterium found in one of 2 blood cultures on April 06 most likely being a contaminant. Currently at goal rate on tube feedings. He is on a renal formulation because of hyperkalemia. May need to increase free water further if sodium does not improving. Continue Levaquin initiated 04/03/2017 and Rocephin initiated 04/02/2017. Rocephin discontinued on 04/06/2017 and cefepime started. Vancomycin started and discontinued on 04/09/2017 Continue Solu-Medrol and breathing treatments Add MiraLAX for constipation Continue Lovenox for DVT prophylaxis (gastric occult from NG drainage was negative) 04/10/17 Debbie Continue with levofloxacin and cefepime for antimicrobial coverage - ID recommending an approximate 10 day course. Will continue with Solu-Medrol at 40mg IV q 8 hours -started on 03/26/17. Potentially could start to decrease. Continue neb treatments and pulmonary toilet. Nutritional support with DH tube feeding. Potassium normal. LFT with gradual increase-potential fatty liver secondary to continuous TF. Continue Lasix. Weight is down approximately 22 kg over the past 1 week. Renal status stable. Blood sugars showing persistent elevation in the low to mid 200's. Will increase Lantus to 34 units at night. 04/11/17 Continue with levofloxacin and cefepime for antimicrobial coverage - ID recommending an approximate 10 day course. With increased temp, persistent leukocytosis, steroid and antibiotic use will start Diflucan 200mg IV daily. Continue mechanical ventilation for respiratory support. Pulm decreased Solu-Medrol to 40mg IV q 12 hours. Continue neb treatments and pulmonary toilet. Slowly able to wean down FIO2. Nutritional support with DH tube feeding. Continue Lasix 20 mg IV BID. Creatinine and BP stable. Potassium with increase to 5.4 this am. Blood sugars still with elevations - will continue current regimen, watching for decrease with decreased Solu-Medrol. 04/12/17 Continue with levofloxacin and cefepime for antimicrobial coverage - ID recommending an approximate 10 day course. Diflucan 200mg IV daily started 04/11/17. Continue mechanical ventilation for respiratory support - Solu-Medrol at 40mg IV q 12 hours. O2 needs increased today - likely mucous plugging. Creatinine with increase to 1.1. Edema much improved. Will decrease Lasix to 20mg daily to minimize overdiuresis. Blood sugars still with elevations - Increase Lantus to 38 units at HS. 04/13/17 Continue with levofloxacin and cefepime for antimicrobial coverage - ID recommending an approximate 10 day course. Diflucan 200mg IV daily started 04/11/17. Vancomycin started on 04/12/17 secondary to temp elevations. Continue mechanical ventilation for respiratory support. Increasing FIO2 - needing 100%. Sputum culture ordered by Dr Pineda. Solu-Medrol at 40mg IV q 12 hours. Continue neb treatments and pulmonary toilet. Nutritional support with DH tube feeding. Creatinine did decrease to 0.8. With increasing oxygen needs and increased intake as compared to output past 2 days will give 20mg IV Lasix. Blood sugars still with elevations - Increase Lantus to 42 units at HS. 04/14/17 Continue with levofloxacin and cefepime for antimicrobial coverage Diflucan 200mg IV daily started 04/11/17. Vancomycin started on 04/12/17 secondary to temp elevations. Continue mechanical ventilation for respiratory support. Sputum culture ordered 04/13 with results pending. Solu-Medrol at 40mg IV q 12 hours. Nutritional support with DH tube feeding. Potassium and sodium normal. Blood sugars still with elevations - Increase Lantus to 46 units at HS. Doppler legs pending - ? DVT as more pedal edema present. 04/15/17 Continue with levofloxacin and cefepime for antimicrobial coverage - ID recommending an approximate 10 day course. Diflucan 200mg IV daily started 04/11/17. Vancomycin started on 04/12/17 secondary to temp elevations. Continue mechanical ventilation for respiratory support. FIO2 needs decreasing - pulm weaning. Secretions decreasing. Sputum culture ordered 04/13 with normal respiratory jesus. Solu-Medrol at 40mg IV q 12 hours. Continue neb treatments and pulmonary toilet. Nutritional support with DH tube feeding. Potassium and sodium normal. Blood sugars still with elevations - Increase Lantus to 50 units at HS. Increase Lasix back to 20mg IV BID due to increasing edema to legs. Doppler legs from 04/14/17 showing no DVT - continue Lovenox 40mg SQ daily and SCD. 04/16/17 ID recommending stopping antibiotics and observing. Continue mechanical ventilation for respiratory support. FIO2 needs decreasing - pulm weaning. Secretions decreasing. Solu-Medrol at 40mg IV q 12 hours. Continue neb treatments and pulmonary toilet. Nutritional support with DH tube feeding. Potassium and sodium normal. Blood sugars still with elevations - Increase Lantus to 50 units at HS. Increase Lasix back to 20mg IV BID due to increasing edema to legs. Doppler legs from 04/14/17 showing no DVT - continue Lovenox 40mg SQ daily and SCD. Condition critical, showing improvement from the weekend. Continued CCU care needed secondary to respiratory failure and mechanical ventilation. 04/17/17 Observing off antibiotics. Continue mechanical ventilation for respiratory support. FIO2 needs decreasing - pulm weaning. Secretions decreasing. Solu-Medrol at 40mg IV daily. Continue neb treatments and pulmonary toilet. Nutritional support with DH tube feeding. Monitor potassium and sodium. Increasing TF to 65 ml/hr. Blood sugars still with elevations - Increase Lantus to 50 units at HS. Increase scheduled Novolog and sliding scale. Increase Lasix back to 20mg IV BID due to increasing edema to legs. 04/19 Observing off antibiotics. Recheck CBC. Steroids DC'd. Febrile today. Repeat cx. Continue mechanical ventilation for respiratory support. FIO2 needs decreasing - pulm holding off on weaning d/t fever. Solu-Medrol at 40mg IV daily. Continue neb treatments and pulmonary toilet. Nutritional support with DH tube feeding. Monitor potassium and sodium. TF goal is 65 ml/hr. Blood sugars may improve off solu-medrol. Monitor. Continuing Lantus, scheduled Novolog and sliding scale. Lasix at to 20mg IV BID due to edema to legs. Abdomen slightly distended. Bowels have slowed down on lower dose of Reglan. Will plan for daily suppository and continue MoM. 04/20 Vanco and cefepime restarted for fever, suspecting new pneumonia. Continue mechanical ventilation for respiratory support. FIO2 needs increasing, fever, pneumonia - pulm holding off on weaning. Solu-Medrol DC'd 04/20. Continue neb treatments and pulmonary toilet. Blood sugars trending down off solu-medrol. Monitor. Continuing Lantus, scheduled Novolog and sliding scale. Nutritional support with DH tube feeding. Monitor potassium and sodium. TF goal is 65 ml/hr. Lasix at to 20mg IV BID due to edema to legs. Abdomen slightly distended. Bowels have slowed down on lower dose of Reglan again, will increase to 10 mg iv q6 and monitor. Daily suppository and continue MoM. KUB does not show obstruction. Pharmacy out of nystatin s&s for thrush. Start Diflucan 04/21/17 Continue Vancomycin and cefepime - suspecting new pneumonia. Continue mechanical ventilation for respiratory support. FIO2 needs with slight improvement today. Continue neb treatments and pulmonary toilet. DH not flushing - will attempt to replace. If not able to restart TF would hold routine insulin and decrease Lantus to 15 units this evening to decrease potential for hypoglycemia. TF goal is 65 ml/hr. Lasix at to 20mg IV BID due to edema to legs. Creatinine, potassium, and BP stable. Discussed with Pulm about family concern regarding potential dental abscess - worry respiratory status not stable enough at this time to risk CT scan. 04/22/17 Continue Vancomycin and cefepime - WBC with decrease, still temp elevations. Continue mechanical ventilation for respiratory support. FIO2 needs down to 40% . Continue neb treatments and pulmonary toilet. DH replaced last night. Continuing with TF. TF goal is 65 ml/hr. Will give additional 20mg IV Lasix today as intake greater than output. Creatinine and potassium normal. Dr Ibarra consulted for possible trach - plans on 04/24.
--- NOTE | 2017-04-22 20:01 | Consultation ---
DATE OF CONSULTATION 04/22/2017 FINDINGS Mr. Zamora is a 42-year-old gentleman whom I was asked to see this evening for placement of a possible percutaneous endoscopic gastrostomy tube and tracheostomy to facilitate his ongoing care. The patient was admitted to our facility on April 02, 2017. He has required prolonged mechanical ventilation. He was intubated on April 02, 2017. The patient has had sepsis secondary to pneumonia. He has a history for possible COPD and sleep apnea. I was really, of course, unable to obtain any information from the patient this evening as a result of the fact he was intubated. Despite his young age the patient does have significant associated medical comorbidities. PAST MEDICAL HISTORY, PAST SURGICAL HISTORY, MEDICATIONS, ALLERGIES, SOCIAL HISTORY, FAMILY HISTORY Performed by my nurse practitioner, Genaro Frey APRN. PHYSICAL EXAMINATION GENERAL: Mr. Zamora is a 42-year-old gentleman who this evening did not appear to be in acute distress. He did awaken when spoken to. VITAL SIGNS: Temperature 101.8, pulse 81, respirations 26, blood pressure 110/ 58, SAO2 91% on 40% FIO2. HEENT: Normocephalic. Pupils were equal, round to accommodation. The patient does have somewhat of a foreshortened neck. I did remove his pillow and place a towel between his shoulder blades. He was able to extend his neck to the point that one could see the cricoid cartilage. Given his obesity, however, his neck is fairly foreshortened. Palpation did reveal the anatomic location of the cricoid cartilage. There was not a significant amount of subcutaneous tissues between the trachea and the anterior surface of the skin. Palpation of the neck did not reveal any evidence for significant adenopathy. CHEST: Coarse breath sounds. HEART: Regular rate and rhythm. ABDOMEN: Soft, nontender. EXTREMITIES: Without clubbing or cyanosis. Positive for edema. NEUROLOGIC: Patient appears to be without focal motor sensory deficits although it is difficult to evaluate the patient fully given his current status. LABORATORY/RADIOGRAPHIC EVALUATION The patient had a CBC today and his white count was 14.9. Hemoglobin essentially normal at 12.9. Platelet count was normal at 137. BMP was obtained also today. BUN was 25.0. Creatinine was 0.5. ASSESSMENT 42-year-old gentleman with acute hypoxic hypercapnic respiratory failure, history for CAP pneumonia, history for sepsis/ARDS. PLAN To facilitate his ongoing care I do feel the patient would benefit from placement of percutaneous endoscopic gastrostomy tube with removal of the Dobbhoff tube as well as tracheostomy. I discussed this with his family members who were present this evening. The patient's mother was present this evening. 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 I informed the patient's mother that I do operate in the neck not infrequently performing thyroidectomies. I informed the mother that I felt comfortable proceeding with placement of a tracheostomy tube to facilitate weaning of his ventilation. I also recommended at the same time proceeding with percutaneous endoscopic gastrostomy tube. I did discuss in detail with the patient's mother what these procedures would entail and their associated risks which included but were not inclusive of bleeding, infection, as well as potential injury to adjacent structures. The patient's mother understood and agreed to proceed with tracheostomy and insertion of PEG tube later this week. LUCIE
[2017-04-22] MEDS: NS FLUSH BAG 500ml IV PRN (20:27)
[2017-04-22] MEDS: INSULIN GLARGINE 100unit/ml INJECTION SQ SCH (20:38)
[2017-04-23] MEDS: DEXMEDETOMIDINE IV PRN ×4 (01:05→18:36)
[2017-04-23] MEDS: NS IV PRN ×4 (01:05→18:36)
[2017-04-23] MEDS: ALBUTEROL/IPRATROPIUM 2.5mg-0.5mg/3ml NEB AEROSOL SCH ×7 (01:30→23:16)
[2017-04-23] MEDS: MEROPENEM 1 GM in NS 100 ML IV SCH ×3 (03:55→20:18)
[2017-04-23] MEDS: GUAIFENESIN 200mg/10ml ORAL LIQUID PO SCH ×3 (03:55→16:37)
[2017-04-23] MEDS: METOCLOPRAMIDE 10mg/2ml INJECTION IVP SCH ×4 (03:55→20:19)
[2017-04-23] MEDS: SALINE FLUSH 10ml SYRINGE IV PRN ×3 (03:56→20:21)
[2017-04-23] MEDS: VANCOMYCIN IV SCH (06:19)
[2017-04-23] MEDS: INSULIN ASPART 100unit/ml INJECTION SQ PRN ×2 (06:19→12:10)
[2017-04-23] MEDS: INSULIN ASPART 100unit/ml INJECTION SQ SCH ×2 (06:19→12:10)
[2017-04-23] MEDS: NS IV SCH (06:19)
[2017-04-23] MEDS: BUDESONIDE INH.SOLN 0.5mg/2ml NEB AEROSOL SCH ×2 (06:30→18:34)
[2017-04-23] MEDS ORDERED: IBUPROFEN 100 MG/5 ML ORAL LIQUID PO ONE (06:30)
[2017-04-23] MEDS: SODIUM CL 3% INHAL.SOLN 15ml NEB AEROSOL SCH ×2 (06:39→21:18)
--- NOTE | 2017-04-23 09:06 | ID Progress Note ---
Subjective Date: 04/23/17 Subjective: Mr. Zamora remains on the ventilator. His step-mother is at bedside. She reports that he seems to be getting better, but is still having fevers. There are plans for a trach and PEG placement tomorrow. Exam Vital Signs: Temperature 100.9 F H 04/23/17 04:00 Pulse Rate 87 04/23/17 06:40 Respiratory Rate 22 04/23/17 06:40 Blood Pressure 126/63 04/23/17 04:30 Pulse Oximetry 95 04/23/17 06:40 Height/Weight/BMI: Height 1.8 m Weight 128.5 kg Body Mass Index 51.2 - Constitutional Present: no acute distress (sedated), obese - Routine HEENT Exam Head: Present: normocephalic, atraumatic Eye: Present: EOMI, PERRL ENT: Present: mucous membranes dry Comments: dried secretions on tongue, ETT in place - Routine Neck Exam Present: supple - Routine Respiratory Exam Present: patient mechanically ventilated (FiO2 at 60%) Comments: coarse breath sounds bilaterally anteriorly - Routine Cardiovascular Exam Present: RRR. Absent: murmur - Routine Abdominal Exam Present: soft (obese), normoactive bowel sounds, non distended, non tender - Routine Extremities Exam Present: edema (trace LE). Absent: cyanosis, clubbing - Routine Skin Exam Absent: rash Comments: R IJ central line - Routine Neurological Exam Present: altered mental status (sedated) - Routine Psychiatric Exam Present: unable to assess Results - Labs CBC & Chem 7: 04/23/17 04:37 04/23/17 04:37 Labs: Laboratory Tests 04/21/17 13:34 HIV 1&2 Antibody Rapid Negative HIV P24 Antigen Negative Cryptococcal antigen is negative Repeat respiratory viral panel 04/21 is negative. Microbiology Results: Microbiology 04/19/17 13:37 Peripheral/Iv Start Blood Culture - Preliminary No Growth After 3 Days 04/19/17 13:26 Port/Picc Gram Stain - Final 04/19/17 13:26 Port/Picc Blood Culture - Final Coag negative Staphylococcus 04/21/17 13:33 Blood Cryptococcal Antigen (Serum) - Final 04/19/17 15:45 Sputum, Suctioned Gram Stain - Final 04/19/17 15:45 Sputum, Suctioned Sputum Culture - Final Normal Respiratory Mayelin 04/13/17 14:50 Sputum, Suctioned Gram Stain - Final 04/13/17 14:50 Sputum, Suctioned Sputum Culture - Final Normal Respiratory Mayelin Present 04/09/17 10:00 Port/Picc Blood Culture - Final No Growth After 5 Days 04/09/17 09:24 Port/Picc Blood Culture - Final No Growth After 5 Days 04/06/17 10:37 Port/Picc Gram Stain - Final 04/06/17 10:37 Port/Picc Blood Culture - Final Corynebacterium species 04/06/17 11:03 Port/Picc Blood Culture - Final No Growth After 5 Days 04/07/17 08:43 Nasopahrynx Gram Stain - Final 04/07/17 08:43 Nasopahrynx Nasopharyngeal Culture - Final Normal Respiratory Mayelin 04/03/17 11:30 Sputum, Suctioned Gram Stain - Final 04/03/17 11:30 Sputum, Suctioned Sputum Culture - Final Normal Respiratory [place]elin 04/03/17 10:38 Urine Legionella Urinary Antigen - Final 04/03/17 10:38 Urine Streptococcus pneumoniae Antigen (M - Final Impression: Sepsis, secondary to pulmonary source, s/p 14 days of IV antibiotics completed . Now with worsening leukocytosis, fever, increased O2 requirements and new L-sided infiltrate on 04/20/17. Acute hypoxic respiratory failure Bilateral community-acquired pneumonia ARDS s/p steroids S/p CODE BLUE/bradycardia versus short lasting asystole on 04/06/2017 1/2 blood cultures positive for Corynebacterium species, contaminant DM II, newly diagnosed Morbid obesity Probable obstructive sleep apnea Tobaccoism Tinea corporis Copious thick nasal secretions from R nare, culture negative PCN allergy per records Elevated D-dimer Recommendation: Will stop Vancomycin as there's no staph isolated. Continue Merrem to complete at least 7 days, through 04/26/17. His WBC and O2 requirements are improving. I discussed with his step-mother that the cause of the fever is unclear. It could be related to one of his medications.
[2017-04-23] MEDS: RTU SALINE IV PRN (09:41)
[2017-04-23] MEDS: MIDAZOLAM IV PRN (09:41)
[2017-04-23] MEDS: FentaNYL 1,000 MCG in NS 80 ML IV PRN ×2 (09:41→20:27)
[2017-04-23] MEDS: ENOXAPARIN 40 MG/0.4 ML INJECTION SQ SCH (09:47)
[2017-04-23] MEDS: FLUCONAZOLE 40 MG/ML PO SCH (09:47)
[2017-04-23] MEDS: CHLORHEXIDINE 0.12% ORAL RINSE PO SCH ×2 (09:47→20:18)
[2017-04-23] MEDS: FUROSEMIDE 20 MG/2 ML INJECTION IVP SCH ×2 (09:48→20:19)
[2017-04-23] MEDS: TERFINAFINE 1% CREAM 12 G TUBE TOP SCH ×2 (09:49→20:20)
[2017-04-23] MEDS: PANTOPRAZOLE 40 MG INJECTION IVP SCH ×2 (09:49→20:19)
[2017-04-23] MEDS: NYSTATIN 500,000 units/5 ml ORAL LIQUID PO SCH ×4 (09:49→20:19)
[2017-04-23] MEDS: REFRESH CLASSIC Eye Drops 0.4ml EACH EYE PRN (09:50)
[2017-04-23] MEDS: BISACODYL 10 MG SUPPOSITORY RECTALLY SCH (10:00)
--- NOTE | 2017-04-23 16:19 | Pulmonology Progress Note ---
Subjective Principal diagnosis: bradycardia Interval history: Pt currently resting on sedation, on TF and tolerating last residual 80/ Currently on vent peep 6 and FIO2 40%, victor m well. Awaiting trach/peg tomorrow. No issues per staff. Still febrile 100. Exam Vital signs: Temperature 99.4 F 04/23/17 12:15 Pulse Rate 80 04/23/17 14:43 Respiratory Rate 27 H 04/23/17 14:43 Blood Pressure 119/67 04/23/17 13:00 Pulse Oximetry 97 04/23/17 14:43 - Constitutional no acute distress, morbidly obese - Routine HEENT Exam Head: Present: normocephalic, atraumatic Eye: Present: PERRL - Routine Neck Exam Present: supple, full ROM, trachea midline - Routine Respiratory Exam Present: patient mechanically ventilated, rhonchi - Routine Cardiovascular Exam Present: RRR, S1, S2, no murmur - Routine Abdominal Exam Present: soft, normoactive bowel sounds, firm - Routine Extremities Exam Present: edema, non tender, full ROM Comments: passive ROM - Routine Back/Spine/Pelvis Exam Back/Spine: Present: full ROM - Routine Skin Exam Present: intact, dry - Routine Neurological Exam Present: altered mental status sedated but wakes with decrease in sedation and follows commands. - Routine Psychiatric Exam Present: unable to assess - Urinary Catheter Management Urethral Cath placed during this visit: yes Urethral indwelling: Yes Reason for continuing: Prolonged Immobilization Insertion date: 04/02/17 Insertion time: 22:20 Assessment and Plan - Assessment and Plan Acute Hypoxic hypercapnic Respiratory Failure CAP Pneumonia Sepsis/ARDS Likely COPD Likely GLADYS - will need OP PSG Elevated LFT's HyperKalemia Fluid overload Plan: Pt currently on vent F 15 Vt 500, peep 6, 40%, was 70% this am. Awaiting trach and peg in am. Still febrile but WBC improving. CX's NTD and currently on merrem , ID to treat for 7 days. f/u CXR in am, cont on BT's with pulmicort BID, a/a q4 and 3% q6, currently off steroids. Micah continue to follow closely. - Time Spent With Patient Total time spent is greater than 50% in coordination of care (as documented) at patient's floor/unit and/or counseling patient: less than 15 minutes
--- NOTE | 2017-04-23 18:37 | Progress Note ---
DATE OF SERVICE 04/23/2017 FINDINGS Mr. Zamora this evening was sedated and on the vent. A daughter who was present states that he has had a fairly good day. EXAM VITAL SIGNS: Temperature 101.8, blood pressure 117/68, respiratory rate 25, SAO2 96% on 40% FIO2. HEENT: Atraumatic. CHEST: Coarse breath sounds. HEART: Rate and rhythm. ABDOMEN: Soft, nontender. LABORATORY/RADIOGRAPHIC EVALUATION The patient had a CBC today and his white count is down to 12.7. Hemoglobin is low at 12.3. Platelet count is normal at 133. CMP was obtained and found to be without marked abnormalities. ASSESSMENT 42-year-old gentleman with acute hypoxic hypercapnic respiratory failure, sepsis secondary to pneumonia, history for probable COPD. Patient requiring prolonged mechanical ventilation. PLAN Tomorrow it would be my recommendation that we proceed with open tracheostomy and insertion of percutaneous endoscopic gastrostomy tube. I have discussed this with the patient's family members previously. Will recommend discontinuing tube feedings at midnight this evening. Otherwise, continue with current care. LUCIE
--- NOTE | 2017-04-23 19:33 | Progress Note ---
- Date 04/23/17 Subjective: F/U: Acute respiratory failure, ARDS, Pneumonia Sedated on Vent. FIO2 at 40% - O2 needs increased overnight. Increase residual of TF this afternoon - held. Sugars decreasing. Planning Trach and Feeding Tube placement tomorrow. Objective Vital signs: Temperature 101.8 F H 04/23/17 16:15 Pulse Rate 80 04/23/17 18:34 Respiratory Rate 25 H 04/23/17 18:34 Blood Pressure 117/68 04/23/17 17:00 Pulse Oximetry 98 04/23/17 18:34 Rhythm: Normal Sinus Rhythm Height/Weight/BMI: Height 1.8 m Weight 128.5 kg Body Mass Index 51.2 - Constitutional Present: well nourished, well developed, morbidly obese - Routine HEENT Exam Head: Present: normocephalic, atraumatic - Routine Respiratory Exam Present: patient mechanically ventilated, distant breath sounds. Absent: respiratory distress - Routine Cardiovascular Exam Present: RRR, no murmur - Routine Abdominal Exam Present: soft, distended. Absent: normoactive bowel sounds (decreased ) - Routine Exam Comments: Walker present - Routine Extremities Exam Present: edema (Pedal edema ), pulses intact. Absent: cyanosis, clubbing - Routine Musculoskeletal Exam Musculoskeletal: Absent: no clubbing or cyanosis - Routine Skin Exam Present: warm - Routine Neurological Exam Sedated - Routine Psychiatric Exam Comments: Sedated Results - Labs CBC & Chem 7: 04/23/17 04:37 04/23/17 04:37 Microbiology Results: Microbiology 04/19/17 13:37 Peripheral/Iv Start Blood Culture - Preliminary No Growth After 4 Days 04/19/17 13:26 Port/Picc Gram Stain - Final 04/19/17 13:26 Port/Picc Blood Culture - Final Coag negative Staphylococcus 04/21/17 13:33 Blood Cryptococcal Antigen (Serum) - Final 04/19/17 15:45 Sputum, Suctioned Gram Stain - Final 04/19/17 15:45 Sputum, Suctioned Sputum Culture - Final Normal Respiratory Jesus 04/13/17 14:50 Sputum, Suctioned Gram Stain - Final 04/13/17 14:50 Sputum, Suctioned Sputum Culture - Final Normal Respiratory Jesus Present 04/09/17 10:00 Port/Picc Blood Culture - Final No Growth After 5 Days 04/09/17 09:24 Port/Picc Blood Culture - Final No Growth After 5 Days 04/06/17 10:37 Port/Picc Gram Stain - Final 04/06/17 10:37 Port/Picc Blood Culture - Final Corynebacterium species 04/06/17 11:03 Port/Picc Blood Culture - Final No Growth After 5 Days 04/07/17 08:43 Nasopahrynx Gram Stain - Final 04/07/17 08:43 Nasopahrynx Nasopharyngeal Culture - Final Normal Respiratory Jesus 04/03/17 11:30 Sputum, Suctioned Gram Stain - Final 04/03/17 11:30 Sputum, Suctioned Sputum Culture - Final Normal Respiratory Jesus 04/03/17 10:38 Urine Legionella Urinary Antigen - Final 04/03/17 10:38 Urine Streptococcus pneumoniae Antigen (M - Final Assessment and Plan (1) Community acquired pneumonia Current visit: No Status: Acute Assessment and Plan: Assessment Acute hypoxic and hypercarbic respiratory failure-requiring mechanical ventilation. Intubated on 04/02/2017. Versed and fentanyl for sedation ARDS Community - acquired pneumonia-severe, requiring intubation. Levaquin initiated 04/03/2017 and Rocephin initiated 04/02/2017. Changed Rocephin to cefepime on . Sepsis secondary to pneumonia on admission Manifestations: Tachycardia, tachypnea, leukocytosis. Lactate normal on admission CODE BLUE/bradycardia versus short lasting asystole on 04/06/2017-patient received chest compressions 3 - EKG and troponin post event were normal Elevated d-dimer 555 - Lovenox therapeutic dose initiated 04/06/2017. Blood culture one of 2 on 04/06/2027 positive for corynebacterium -discussed with Dr. Johnson. This is most likely contaminant. Anasarca - improving; significant decrease of fluid since admit Echocardiogram revealed normal EF, left ventricular hypertrophy, PA pressure 41 with mild pulmonary hypertension (echo 04/06/2017 unchanged on recheck)-BNP has been normal. Diabetes Mellitus Type 2 - A1C 7.1 on admission (new diagnosis)-on Lantus, scheduled NovoLog and sliding scale insulin Possible COPD Probable obstructive sleep apnea Chronic back pain with high-dose ibuprofen and Tylenol use prior to admission Tinea corporis/ringworm? Tobacco dependence Hyperkalemia with potassium up to 5.5 of undetermined etiology (Not POA). Possible sinusitis right nears with copious thick nasal secretions - C/S showing normal jesus Mild hypernatremia (Not POA) Morbid obesity-BMI 42.0 Plan Continue cefepime - Vancomycin stopped by ID as no staph isolated. Continue mechanical ventilation for respiratory support. FIO2 needs down to 40% . Trach planned for tomorrow. Continue neb treatments and pulmonary toilet. TF to hold after midnight tonight. Will hold Lantus 50 units and Scheduled insulin to decrease risk for hypoglycemia. Lantus 10 units tonight x1. PRN Ibuprofen added to help temp elevation. Recheck BMP in am secondary to medication use. Will repeat CBC in am due to leukocytosis. Case discussed with CCU nursing and family. Time spent with patient care 25 minutes. DVT Prophylaxis: SCD's, Lovenox Resuscitation Status: Full Code - Time spent with patient Time with patient PN: 25 minutes - Physician Narrative Physician: Wally Lewis MD Narrative: Date: 04/23/17 Time: 1929 Hospital Course Summary Disclaimer: The visit summary below is not to be considered part of the above Progress Note. Hospital Course: Assessment Respiratory insufficiency with hypoxia Sepsis secondary to pneumonia Manifestations: Tachycardia, tachypnea, leukocytosis Community-acquired pneumonia Anasarca Morbid obesity-BMI 42.0 Hyperglycemia-POA Tinea corporis Tobacco dependence 04/02/17 Hospital admission Admit to inpatient status under the care of the hospitalist service, Dr. Lewis attending. It is expected that his stay will exceed 2 overnights given his sepsis secondary to pneumonia and overall condition. SCDs and Lovenox for DVT prophylaxis Urinalysis for laboratory completeness. Repeat CBC and BMP in am to follow leukocytosis, renal function and electrolytes. Schedule echocardiogram to evaluate cardiac structure and function given his anasarca and dyspnea. Oxygen, DuoNeb treatments, Acapella, and guaifenesin for respiratory symptoms. Continue Rocephin and Zithromax initiated and the emergency room. Blood cultures were drawn prior to antibiotic initiation. RT consult tobacco cessation. Terbinafine topically for his tinea corporis Patient wishes to be a full code. Case discussed with Dr. Lewis. Case management will need to assist in finding patient a PCP. 04/04/17 12:03 Plan The patient continues to require mechanical ventilation and is on 100% FiO2 regarding his ARDS and pneumonia. Continue ventilator support - Dr. Pineda is following. His help is greatly appreciated. Continue Levaquin initiated 04/03/2017 and Rocephin initiated 04/02/2017 Continue Solu-Medrol Discussed with Dr. Pineda, will change Lovenox to prophylactic dose. Venous Doppler of the legs were negative for DVT. No signs of right heart strain on echocardiogram. Advance tube feedings Nutren luminary 1.5 to goal of 70 ML's per hour. Start free water 400 ML's every 8 hours. DC IV fluids Vishal blood pressure off of IV fluids. May need to initiate antihypertensive Start Lantus 10 units subcutaneous daily. Increase to medium dose sliding scale insulin. Continue Lasix 40 mg IV every 12. Patient is diuresing well. Check CBC and renal panel tomorrow. Chest x-ray tomorrow. Assess with Dr. Pineda, the patient's significant other, and the patient's nurse. 04/05/17 09:31 Plan The patient continues to require mechanical ventilation and is now on 95% FiO2 regarding his ARDS and pneumonia. Continue ventilator support per Dr. Pineda Continue Levaquin initiated 04/03/2017 and Rocephin initiated 04/02/2017. Continue Solu-Medrol Regarding hyperkalemia, will try to change to feeding to a renal tube feeds. Check ABG. (7.32/79/103 on 95% FiO2) Recheck basic metabolic profile later today. May need to increase fluids followed by diuresis for hyperkalemia Increase Lantus to 20 units subcutaneous daily for hyperglycemia. Increase sliding scale insulin to high dose Start Reglan and Dulcolax suppositories to stimulate GI tract. Decrease tube feed rate to 50 ML's for now. Greater than 40 minutes critical care time. 04/07/2017 Plan The patient continues to require mechanical ventilation and FiO2 100% regarding his ARDS and pneumonia. The patient has tolerated discontinuation of propofol and initiation of Versed. The patient is tolerating his tube feedings. Will advance as tolerated. Will increase free water to 200 ML's every 4 hours and decrease Lasix to 20 mg IV every 12 regarding his elated sodium. Continue to monitor blood pressure closely. Continue Levaquin initiated 04/03/2017 and Rocephin initiated 04/02/2017. Continue Solu-Medrol Regarding hyperkalemia-is resolved. Continue renal tube feeds Continue Reglan and Dulcolax suppositories to stimulate GI tract. Greater than 45 minutes of critical care time spent seeing and evaluating the patient. The patient's brother was updated. 04/08/17 09:49 Plan Overall, the patient is stable. He is diuresing well. Weight is down approximately 22 kg over the past 1 week. He has been on the ventilator for one week now. FiO2 turned down to 95% this morning. Consulted Dr. Johnson regarding positive blood culture and antibiotic recommendations The patient continues to require mechanical ventilation regarding his ARDS and pneumonia. FiO2 down to 95% this morning The patient is tolerating his tube feedings. Will advance as tolerated to goal. Will increase free water to 250 ML's every 4 hours. Continue Lasix 20 mg IV every 12. Continue to monitor blood pressure closely. Continue Levaquin initiated 04/03/2017 and Rocephin initiated 04/02/2017. Continue Solu-Medrol and breathing treatments Regarding hyperkalemia- Continue renal tube feeds Continue Reglan and Dulcolax suppositories to stimulate GI tract. Regarding possible mild upper GI bleed, will Gastric occult NG drainage. Hold Lovenox for now. Greater than 45 minutes of critical care time spent seeing and evaluating the patient. 04/09/17 Overall, the patient is improving. FiO2 is now down to 70%. The patient appears to be nearly euvolemic at this time. We'll continue Lasix. Weight is down approximately 22 kg over the past [address] Johnson recommends approximately 10 days of broad-spectrum antibiotics for his pneumonia. She recommended discontinuation of vancomycin today with corynebacterium found in one of 2 blood cultures on April 06 most likely being a contaminant. Currently at goal rate on tube feedings. He is on a renal formulation because of hyperkalemia. May need to increase free water further if sodium does not improving. Continue Levaquin initiated 04/03/2017 and Rocephin initiated 04/02/2017. Rocephin discontinued on 04/06/2017 and cefepime started. Vancomycin started and discontinued on 04/09/2017 Continue Solu-Medrol and breathing treatments Add MiraLAX for constipation Continue Lovenox for DVT prophylaxis (gastric occult from NG drainage was negative) 04/10/17 Debbie Continue with levofloxacin and cefepime for antimicrobial coverage - ID recommending an approximate 10 day course. Will continue with Solu-Medrol at 40mg IV q 8 hours -started on 03/26/17. Potentially could start to decrease. Continue neb treatments and pulmonary toilet. Nutritional support with DH tube feeding. Potassium normal. LFT with gradual increase-potential fatty liver secondary to continuous TF. Continue Lasix. Weight is down approximately 22 kg over the past 1 week. Renal status stable. Blood sugars showing persistent elevation in the low to mid 200's. Will increase Lantus to 34 units at night. 04/11/17 Continue with levofloxacin and cefepime for antimicrobial coverage - ID recommending an approximate 10 day course. With increased temp, persistent leukocytosis, steroid and antibiotic use will start Diflucan 200mg IV daily. Continue mechanical ventilation for respiratory support. Pulm decreased Solu-Medrol to 40mg IV q 12 hours. Continue neb treatments and pulmonary toilet. Slowly able to wean down FIO2. Nutritional support with DH tube feeding. Continue Lasix 20 mg IV BID. Creatinine and BP stable. Potassium with increase to 5.4 this am. Blood sugars still with elevations - will continue current regimen, watching for decrease with decreased Solu-Medrol. 04/12/17 Continue with levofloxacin and cefepime for antimicrobial coverage - ID recommending an approximate 10 day course. Diflucan 200mg IV daily started 04/11/17. Continue mechanical ventilation for respiratory support - Solu-Medrol at 40mg IV q 12 hours. O2 needs increased today - likely mucous plugging. Creatinine with increase to 1.1. Edema much improved. Will decrease Lasix to 20mg daily to minimize overdiuresis. Blood sugars still with elevations - Increase Lantus to 38 units at HS. 04/13/17 Continue with levofloxacin and cefepime for antimicrobial coverage - ID recommending an approximate 10 day course. Diflucan 200mg IV daily started 04/11/17. Vancomycin started on 04/12/17 secondary to temp elevations. Continue mechanical ventilation for respiratory support. Increasing FIO2 - needing 100%. Sputum culture ordered by Dr Pineda. Solu-Medrol at 40mg IV q 12 hours. Continue neb treatments and pulmonary toilet. Nutritional support with DH tube feeding. Creatinine did decrease to 0.8. With increasing oxygen needs and increased intake as compared to output past 2 days will give 20mg IV Lasix. Blood sugars still with elevations - Increase Lantus to 42 units at HS. 04/14/17 Continue with levofloxacin and cefepime for antimicrobial coverage Diflucan 200mg IV daily started 04/11/17. Vancomycin started on 04/12/17 secondary to temp elevations. Continue mechanical ventilation for respiratory support. Sputum culture ordered 04/13 with results pending. Solu-Medrol at 40mg IV q 12 hours. Nutritional support with DH tube feeding. Potassium and sodium normal. Blood sugars still with elevations - Increase Lantus to 46 units at HS. Doppler legs pending - ? DVT as more pedal edema present. 04/15/17 Continue with levofloxacin and cefepime for antimicrobial coverage - ID recommending an approximate 10 day course. Diflucan 200mg IV daily started 04/11/17. Vancomycin started on 04/12/17 secondary to temp elevations. Continue mechanical ventilation for respiratory support. FIO2 needs decreasing - pulm weaning. Secretions decreasing. Sputum culture ordered 04/13 with normal respiratory jesus. Solu-Medrol at 40mg IV q 12 hours. Continue neb treatments and pulmonary toilet. Nutritional support with DH tube feeding. Potassium and sodium normal. Blood sugars still with elevations - Increase Lantus to 50 units at HS. Increase Lasix back to 20mg IV BID due to increasing edema to legs. Doppler legs from 04/14/17 showing no DVT - continue Lovenox 40mg SQ daily and SCD. 04/16/17 ID recommending stopping antibiotics and observing. Continue mechanical ventilation for respiratory support. FIO2 needs decreasing - pulm weaning. Secretions decreasing. Solu-Medrol at 40mg IV q 12 hours. Continue neb treatments and pulmonary toilet. Nutritional support with DH tube feeding. Potassium and sodium normal. Blood sugars still with elevations - Increase Lantus to 50 units at HS. Increase Lasix back to 20mg IV BID due to increasing edema to legs. Doppler legs from 04/14/17 showing no DVT - continue Lovenox 40mg SQ daily and SCD. Condition critical, showing improvement from the weekend. Continued CCU care needed secondary to respiratory failure and mechanical ventilation. 04/17/17 Observing off antibiotics. Continue mechanical ventilation for respiratory support. FIO2 needs decreasing - pulm weaning. Secretions decreasing. Solu-Medrol at 40mg IV daily. Continue neb treatments and pulmonary toilet. Nutritional support with DH tube feeding. Monitor potassium and sodium. Increasing TF to 65 ml/hr. Blood sugars still with elevations - Increase Lantus to 50 units at HS. Increase scheduled Novolog and sliding scale. Increase Lasix back to 20mg IV BID due to increasing edema to legs. 04/19 Observing off antibiotics. Recheck CBC. Steroids DC'd. Febrile today. Repeat cx. Continue mechanical ventilation for respiratory support. FIO2 needs decreasing - pulm holding off on weaning d/t fever. Solu-Medrol at 40mg IV daily. Continue neb treatments and pulmonary toilet. Nutritional support with DH tube feeding. Monitor potassium and sodium. TF goal is 65 ml/hr. Blood sugars may improve off solu-medrol. Monitor. Continuing Lantus, scheduled Novolog and sliding scale. Lasix at to 20mg IV BID due to edema to legs. Abdomen slightly distended. Bowels have slowed down on lower dose of Reglan. Will plan for daily suppository and continue MoM. 04/20 Vanco and cefepime restarted for fever, suspecting new pneumonia. Continue mechanical ventilation for respiratory support. FIO2 needs increasing, fever, pneumonia - pulm holding off on weaning. Solu-Medrol DC'd 04/20. Continue neb treatments and pulmonary toilet. Blood sugars trending down off solu-medrol. Monitor. Continuing Lantus, scheduled Novolog and sliding scale. Nutritional support with DH tube feeding. Monitor potassium and sodium. TF goal is 65 ml/hr. Lasix at to 20mg IV BID due to edema to legs. Abdomen slightly distended. Bowels have slowed down on lower dose of Reglan again, will increase to 10 mg iv q6 and monitor. Daily suppository and continue MoM. KUB does not show obstruction. Pharmacy out of nystatin s&s for thrush. Start Diflucan 04/21/17 Continue Vancomycin and cefepime - suspecting new pneumonia. Continue mechanical ventilation for respiratory support. FIO2 needs with slight improvement today. Continue neb treatments and pulmonary toilet. DH not flushing - will attempt to replace. If not able to restart TF would hold routine insulin and decrease Lantus to 15 units this evening to decrease potential for hypoglycemia. TF goal is 65 ml/hr. Lasix at to 20mg IV BID due to edema to legs. Creatinine, potassium, and BP stable. Discussed with Pulm about family concern regarding potential dental abscess - worry respiratory status not stable enough at this time to risk CT scan. 04/22/17 Continue Vancomycin and cefepime - WBC with decrease, still temp elevations. Continue mechanical ventilation for respiratory support. FIO2 needs down to 40% . Continue neb treatments and pulmonary toilet. DH replaced last night. Continuing with TF. TF goal is 65 ml/hr. Will give additional 20mg IV Lasix today as intake greater than output. Creatinine and potassium normal. Dr Ibarra consulted for possible trach - plans on 04/24. 04/23/17 Continue cefepime - Vancomycin stopped by ID as no staph isolated. WBC with decrease to 12.7. Continue mechanical ventilation for respiratory support. FIO2 needs down to 40% . Trach planned for tomorrow. Continue neb treatments and pulmonary toilet. PRN Ibuprofen added to help temp elevation. TF to hold after midnight tonight. Will hold Lantus 50 units and Scheduled insulin to decrease risk for hypoglycemia. Lantus 10 units tonight x1.
[2017-04-23] MEDS: IBUPROFEN 100 MG/5 ML ORAL LIQUID PO PRN (20:20)
[2017-04-23] MEDS: NS FLUSH BAG 500ml IV PRN (20:27)
[2017-04-23] MEDS ORDERED: INSULIN GLARGINE 100unit/ml INJECTION SQ ONE (21:00)
[2017-04-23] MEDS ORDERED: ALTEPLASE (Cathflo*) 2mg INJECTION IV ONE (22:01)
[2017-04-24] MEDS: INSULIN ASPART 100unit/ml INJECTION SQ SCH (01:56)
[2017-04-24] MEDS: DEXMEDETOMIDINE IV PRN ×3 (03:06→20:47)
[2017-04-24] MEDS: MEROPENEM 1 GM in NS 100 ML IV SCH ×3 (03:06→19:52)
[2017-04-24] MEDS: NS IV PRN ×3 (03:06→20:47)
[2017-04-24] MEDS: METOCLOPRAMIDE 10mg/2ml INJECTION IVP SCH ×4 (03:07→21:17)
[2017-04-24] MEDS: ALBUTEROL/IPRATROPIUM 2.5mg-0.5mg/3ml NEB AEROSOL SCH ×6 (03:10→23:09)
[2017-04-24] MEDS: SALINE FLUSH 10ml SYRINGE IV PRN (05:39)
[2017-04-24] MEDS: FentaNYL 1,000 MCG in NS 80 ML IV PRN (06:25)
[2017-04-24] MEDS: RTU SALINE IV PRN (06:26)
[2017-04-24] MEDS: MIDAZOLAM IV PRN (06:26)
[2017-04-24] MEDS ORDERED: FentaNYL 100 MCG/2 ML INJECTION ONE (06:49)
[2017-04-24] MEDS ORDERED: MIDAZOLAM 2mg/2ml INJECTION ONE (06:50)
[2017-04-24] MEDS ORDERED: KETAMINE 500 MG/10 ML INJECTION ONE (06:50)
[2017-04-24] MEDS: BUDESONIDE INH.SOLN 0.5mg/2ml NEB AEROSOL SCH ×2 (07:21→19:10)
--- NOTE | 2017-04-24 07:21 | Anesthesia Preoperative Report ---
Anesthesia Preoperative Record - Date and Time Date: 04/24/17 Preoperative Diagnosis: Sepsis, hypoxia Proposed Procedure: Trach and Peg NPO Since Date: 04/24/17 NPO Since Time: 00:00 Allergies/Adverse Reactions: Allergies Allergy/AdvReac Type Severity Reaction Status Date / Time adhesive tape Allergy Mild Rash Verified 04/04/17 10:01 Penicillins Allergy Mild Rash Verified 04/02/17 20:06 - Vital Signs Vital Signs: Temperature 99.9 F 04/24/17 04:00 Pulse Rate 79 04/24/17 07:00 Respiratory Rate 18 04/24/17 07:00 Blood Pressure 121/67 04/24/17 07:00 Pulse Oximetry 94 04/24/17 07:00 Height and Weight: Height 5 ft 11 in Weight 128.5 kg Body Mass Index 51.2 - Medications Inpatient Medications: Current Medications Acetaminophen (Tylenol Liquid) 640 mg PO Q5H PRN PRN Reason: Discomfort Last Admin: 04/22/17 23:54 Dose: 640 mg Acetaminophen (Tylenol Supp) 650 mg GA Q5H PRN PRN Reason: Fever /Discomfort Albuterol/Ipratropium (Duoneb) 3 ml AEROSOL Q2HR PRN Last Admin: 04/19/17 18:50 Dose: 3 ml Albuterol/Ipratropium (Duoneb) 3 ml AEROSOL Q4HR [facility] Last Admin: 04/24/17 03:10 Dose: 3 ml Artificial Tears (Refresh Classic) 1 drop EACH EYE PRN PRN Last Admin: 04/23/17 09:50 Dose: 1 drop Benzocaine (Orajel) 1 applic MM QID PRN Last Admin: 04/19/17 14:05 Dose: 1 applic Bisacodyl (Dulcolax) 10 mg RECTALLY DAILY [facility] Stop: 04/26/17 09:01 Last Admin: 04/23/17 10:00 Dose: 10 mg Budesonide (Pulmicort Inhalation) 0.5 mg AEROSOL RTBID [facility] Last Admin: 04/23/17 18:34 Dose: 0.5 mg Chlorhexidine Gluconate (Peridex) 15 ml PO BID [facility] Last Admin: 04/23/17 20:18 Dose: 15 ml Dextrose (D50%W) 20 ml IVP PRN PRN PRN Reason: Hypoglycemia Enoxaparin Sodium (Lovenox) 40 mg SQ DAILY [facility] Last Admin: 04/23/17 09:47 Dose: 40 mg Fluconazole (Diflucan) 200 mg PO DAILY [facility] Last Admin: 04/23/17 09:47 Dose: 200 mg Furosemide (Lasix) 20 mg IVP Q12HR [facility] Last Admin: 04/23/17 20:19 Dose: 20 mg Fentanyl 1,000 mcg/ Sodium (Chloride) 100 mls @ 0 mls/hr IV .Q0M PRN; Protocol ; Per Protocol PRN Reason: Sedation Last Admin: 04/24/17 06:25 Dose: 10 mls/hr Midazolam HCl 100 mg/ Sodium (Chloride) 100 mls @ 0 mls/hr IV .Q0M PRN; Protocol; Per Protocol PRN Reason: VENT SEDATION Last Admin: 04/24/17 06:26 Dose: 5 mls/hr Dexmedetomidine HCl 1,000 mcg/ (Sodium Chloride) 260 mls @ 7.47 mls/hr IV .Q24H PRN; 0.2 MCG/KG/HR PRN Reason: Protocol Last Titration: 04/24/17 06:00 Dose: 0.82 mcg/kg/hr, 31 mls/hr Meropenem 1 gm/ Sodium (Chloride) 100 mls @ 200 mls/hr IV Q8H [facility] Last Infusion: 04/24/17 03:44 Dose: Infused Ibuprofen (Motrin Oral Liq) 600 mg PO Q8H PRN PRN Reason: Fever Last Admin: 04/23/17 20:20 Dose: 600 mg Insulin Aspart (Novolog) 3 - 12 unit SQ SS PRN; Protocol PRN Reason: Hyperglycemia Last Admin: 04/23/17 12:10 Dose: 6 unit Insulin Aspart (Novolog) 10 unit SQ 0001,0600,1200,1800 [facility] Last Admin: 04/24/17 01:56 Dose: Not Given Insulin Glargine (Lantus) 50 unit SQ HS [facility] Last Admin: 04/22/17 20:38 Dose: 50 unit Lorazepam (Ativan Inj) 2 mg IVP Q1H PRN PRN Reason: Anxiety/Restlessness Last Admin: 04/18/17 03:40 Dose: 2 mg Magnesium Hydroxide (Mom) 30 ml PO DAILY PRN PRN Reason: Constipation Last Admin: 04/19/17 08:41 Dose: 30 ml Menthol (Ricola Sf) 1 lozenge MM PRN PRN PRN Reason: Cough Metoclopramide HCl (Reglan) 10 mg IVP Q6HR [facility] Last Admin: 04/24/17 03:07 Dose: 10 mg Nystatin (Mycostatin) 5 ml PO QID [facility] Last Admin: 04/23/17 20:19 Dose: 5 ml Pantoprazole Sodium (Protonix Iv) 40 mg IVP BID [facility] Last Admin: 04/23/17 20:19 Dose: 40 mg Sodium Chloride (Iv Flush) 10 - 80 ml IV PRN PRN PRN Reason: Flushing Last Admin: 04/24/17 05:39 Dose: 60 ml Sodium Chloride (Sodium Chloride 3% Inhal) 3 ml AEROSOL Q12HR [facility] Last Admin: 04/23/17 21:18 Dose: 3 ml Sodium Chloride (Normal Saline) 500 ml IV PRN PRN Last Admin: 04/23/17 20:27 Dose: 500 ml Terbinafine HCl (Lamisil At) 1 applic TOP BID [facility] Last Admin: 04/23/17 20:20 Dose: 1 applic Home Medications: Home Medications Medication Instructions Recorded Confirmed Type Acetaminophen [Tylenol] 500 mg PO TID 04/02/17 04/02/17 History Ibuprofen 200 mg PO TID 04/02/17 04/02/17 History Is Patient on Beta Rosette?: No - Medical History Respiratory: Reports: Pneumonia (currently), Other (ARDS currently) Gastrointestional: Reports: Gastroesophageal Reflux Disease (High residual tube feeds recently), Morbid Obesity Neuro/Musculoskeletal: Denies: HX.MS.OSAR, Back Problems, Cerebrovascular Accident, Depression, Headaches, Loss of Consciousness, Muscle Weakness, Neuromuscular Disorder, Paralysis, Paresthesia, Syncope, Seizures, Other Renal/Endocrine: Reports: Diabetes Mellitus Type 2 (newly diagnosed this hospitalization) Other History: DENIES: Anesthesia Reactions, Now, Blood Transfusions, Chemotherapy , Cancer, Hemophilia, Malignant Hyperthermia, Sickle Cell Disease, Other - Surgical History GI Surgery/Treatments: Reports: Appendectomy Anesthesia Reactions: None Hx Family Anesthesia Reaction: No History of Motion Sickness: No - Social History Smoking Status: Current every day smoker (1ppd x 20 yrs.) Pack-years: 20 Substance Use Type: does not use Alcohol Intake Frequency: does not drink - Pertinent Findings Laboratory: CBC and BMP 04/24/17 05:28 04/24/17 05:28 BMP 04/24/17 05:28 Sodium 143 Potassium 3.9 Chloride 108 H Carbon Dioxide 30 BUN 20.0 Creatinine 0.5 L Glucose 125 H Calcium 8.5 EKG: Sinus Rhythm - Physical Exam Respiratory Exam: Present: wheezing (throughouth), decreased breath sounds-L ( base), decreased breath sounds-R (base) Cardiovascular Exam: Present: regular rate and rhythm, no murmur - Airway Assessment Mallampati Score: III TMD: 3 Fingerbreadths Neck Extension: poor Teeth: poor dentation, loose tooth Overall Assessment: may be difficult intubation, other (pt currently intubated and sedated) - ASA ASA Score: 3 - Plan Anesthesia: General TIVA - Discussion Discussion: Discussed risks/options/alternatives of anesthesia and questions answered. Patient consents. Nursing pain assessment noted. Present for Discussion: children, parent Attestation Statement: Prior to the delivery of any anesthetic medication, I examined the patient, developed the plan, obtained the patient's consent and discussed the risk and benefits of the procedure with the patient/guardian. - Additional Information Seen by Anesthesia: Yes
[2017-04-24] MEDS: NS 1,000 ML IV SCH ×3 (07:55→18:30)
[2017-04-24] MEDS ORDERED: LIDOCAINE VISCOUS 2% ORAL LIQUID 15ml ONE (08:07)
[2017-04-24] MEDS ORDERED: BUPIVACAINE 0.25%/EPI 1:200,000 30ml SDV ID ONE (08:45)
--- NOTE | 2017-04-24 08:55 | XRay Report ---
Indication: f/u PROCEDURE: XR chest 1V: Encounter: Initial Comparison: April 22, 2017 Findings: Support devices appear stable. Slight increase in right perihilar airspace opacity. Stable left-sided infiltrates. No pneumothorax. Small effusions. Heart size and mediastinal contours are stable. Impression: Worsening right perihilar infiltrate. .
[2017-04-24] MEDS: CHLORHEXIDINE 0.12% ORAL RINSE PO SCH ×2 (09:12→21:37)
[2017-04-24] MEDS: TERFINAFINE 1% CREAM 12 G TUBE TOP SCH ×2 (09:13→21:18)
[2017-04-24] MEDS: BISACODYL 10 MG SUPPOSITORY RECTALLY SCH (09:13)
[2017-04-24] MEDS ORDERED: PROPOFOL 500 MG/50 ML VIAL ONE (09:16)
[2017-04-24] MEDS ORDERED: PROPOFOL 1,000 MG/100 ML VIAL ONE (09:16)
[2017-04-24] MEDS ORDERED: SALINE FLUSH 10ml SYRINGE ONE (09:22)
--- NOTE | 2017-04-24 09:45 | General Surgery Procedure Note ---
Date of Procedure: 04/24/17 Surgeon: Stacey Packaging Specialist: Carlos Postoperative Diagnosis: ARDS respiratory failure, High risk malnutrion, inability to swallow, intubated Procedure: EGD with placement of PEG. Creation of Tracheostomy Estimated Blood Loss: See Anesthesia Record. Pathology: none sent
[2017-04-24] MEDS: PANTOPRAZOLE 40 MG INJECTION IVP SCH ×2 (10:17→21:16)
[2017-04-24] MEDS: FUROSEMIDE 20 MG/2 ML INJECTION IVP SCH ×2 (10:18→21:17)
[2017-04-24] MEDS: FLUCONAZOLE 40 MG/ML PO SCH ×2 (10:19→10:58)
[2017-04-24] MEDS: ENOXAPARIN 40 MG/0.4 ML INJECTION SQ SCH (10:38)
[2017-04-24] MEDS: NYSTATIN 500,000 units/5 ml ORAL LIQUID PO SCH ×4 (10:38→21:17)
[2017-04-24] MEDS: SODIUM CL 3% INHAL.SOLN 15ml NEB AEROSOL SCH ×2 (11:45→23:10)
--- NOTE | 2017-04-24 11:56 | Cardiology Progress Note ---
<Vidhya Galvez - Last Filed: 04/25/17 13:28> Subjective Principal diagnosis: bradycardia Interval history: Gianni is seen in follow up for bradycardia. He remains sedated on the ventilator. Today he had and EGD with placement of PEG tube and creation of Tracheostomy by Dr. Ibarra. Exam Vital signs: Temperature 101.2 F H 04/24/17 07:15 Pulse Rate 83 04/24/17 09:48 Respiratory Rate 30 H 04/24/17 09:48 Blood Pressure 127/74 04/24/17 08:10 Pulse Oximetry 90 04/24/17 09:48 - Constitutional no acute distress, morbidly obese - Routine HEENT Exam Head: Present: normocephalic ENT: Present: mucous membranes moist - Routine Neck Exam Absent: JVD, carotid bruit - Routine Respiratory Exam Present: patient mechanically ventilated, decreased breath sounds - Routine Cardiovascular Exam Present: RRR, no murmur - Routine Abdominal Exam Present: soft, normoactive bowel sounds - Routine Extremities Exam Present: edema - Routine Skin Exam Present: intact, dry, warm - Additional findings Additional findings: Acetaminophen (Tylenol Liquid) 640 mg PO Q5H PRN PRN Reason: Discomfort Last Admin: 04/22/17 23:54 Dose: 640 mg Acetaminophen (Tylenol Supp) 650 mg NC Q5H PRN PRN Reason: Fever /Discomfort Last Admin: 04/25/17 09:45 Dose: 650 mg Albuterol/Ipratropium (Duoneb) 3 ml AEROSOL Q2HR PRN Last Admin: 04/19/17 18:50 Dose: 3 ml Albuterol/Ipratropium (Duoneb) 3 ml AEROSOL Q4HR [facility] Last Admin: 04/25/17 12:37 Dose: 3 ml Artificial Tears (Refresh Classic) 1 drop EACH EYE PRN PRN Last Admin: 04/23/17 09:50 Dose: 1 drop Benzocaine (Orajel) 1 applic MM QID PRN Last Admin: 04/24/17 13:09 Dose: 1 applic Bisacodyl (Dulcolax) 10 mg RECTALLY DAILY [facility] Stop: 04/26/17 09:01 Last Admin: 04/25/17 09:45 Dose: 10 mg Budesonide (Pulmicort Inhalation) 0.5 mg AEROSOL RTBID [facility] Last Admin: 04/25/17 08:01 Dose: 0.5 mg Chlorhexidine Gluconate (Peridex) 15 ml PO BID [facility] Last Admin: 04/25/17 09:48 Dose: 15 ml Dextrose (D50%W) 20 ml IVP PRN PRN PRN Reason: Hypoglycemia Enoxaparin Sodium (Lovenox) 40 mg SQ DAILY [facility] Last Admin: 04/25/17 09:43 Dose: 40 mg Fluconazole (Diflucan) 200 mg PO DAILY [facility] Last Admin: 04/24/17 10:58 Dose: Not Given Furosemide (Lasix) 20 mg IVP Q12HR [facility] Last Admin: 04/25/17 09:44 Dose: 20 mg Fentanyl 1,000 mcg/ Sodium (Chloride) 100 mls @ 0 mls/hr IV .Q0M PRN; Protocol ; Per Protocol PRN Reason: Sedation Last Infusion: 04/25/17 07:00 Dose: 5 mls/hr Midazolam HCl 100 mg/ Sodium (Chloride) 100 mls @ 0 mls/hr IV .Q0M PRN; Protocol; Per Protocol PRN Reason: VENT SEDATION Last Titration: 04/25/17 07:00 Dose: 2.5 mls/hr Dexmedetomidine HCl 1,000 mcg/ (Sodium Chloride) 260 mls @ 7.47 mls/hr IV .Q24H PRN; 0.2 MCG/KG/HR PRN Reason: Protocol Last Titration: 04/25/17 07:00 Dose: 0.82 mcg/kg/hr, 31 mls/hr Meropenem 1 gm/ Sodium (Chloride) 100 mls @ 200 mls/hr IV Q8H [facility] Last Admin: 04/25/17 13:04 Dose: 200 mls/hr Ibuprofen (Motrin Oral Liq) 600 mg PO Q8H PRN PRN Reason: Fever Last Admin: 04/25/17 13:13 Dose: 600 mg Insulin Aspart (Novolog) 3 - 12 unit SQ SS PRN; Protocol PRN Reason: Hyperglycemia Last Admin: 04/25/17 13:18 Dose: 5 unit Insulin Aspart (Novolog) 10 unit SQ 0001,0600,1200,1800 [facility] Last Admin: 04/24/17 01:56 Dose: Not Given Insulin Glargine (Lantus) 50 unit SQ HS [facility] Last Admin: 04/22/17 20:38 Dose: 50 unit Lorazepam (Ativan Inj) 2 mg IVP Q1H PRN PRN Reason: Anxiety/Restlessness Last Admin: 04/18/17 03:40 Dose: 2 mg Magnesium Hydroxide (Mom) 30 ml PO DAILY PRN PRN Reason: Constipation Last Admin: 04/19/17 08:41 Dose: 30 ml Menthol (Ricola Sf) 1 lozenge MM PRN PRN PRN Reason: Cough Metoclopramide HCl (Reglan) 10 mg IVP Q6HR [facility] Last Admin: 04/25/17 09:44 Dose: 10 mg Nystatin (Mycostatin) 5 ml PO QID [facility] Last Admin: 04/25/17 09:46 Dose: 5 ml Pantoprazole Sodium (Protonix Iv) 40 mg IVP BID [facility] Last Admin: 04/25/17 09:44 Dose: 40 mg Sodium Chloride (Iv Flush) 10 - 80 ml IV PRN PRN PRN Reason: Flushing Last Admin: 04/25/17 03:06 Dose: 60 ml Sodium Chloride (Sodium Chloride 3% Inhal) 3 ml AEROSOL Q12HR [facility] Last Admin: 04/25/17 12:36 Dose: 3 ml Sodium Chloride (Normal Saline) 500 ml IV PRN PRN Last Admin: 04/23/17 20:27 Dose: 500 ml Terbinafine HCl (Lamisil At) 1 applic TOP BID [facility] Last Admin: 04/25/17 09:49 Dose: 1 applic - Urinary Catheter Management Urethral Cath placed during this visit: yes Urethral indwelling: Yes Insertion date: 04/02/17 Insertion time: 22:20 Results 04/25/17 05:18 04/25/17 05:18 CBC 04/24/17 Range/Units 05:28 WBC 11.9 H (4.5-11.0) T/MM3 RBC 3.83 L (4.50-5.90) M/MM3 Hgb 11.9 L (13.5-17.5) GM/DL Hct 38.3 L (41-53) % Plt Count 145 (130-400) T/MM3 Neut # (Auto) 7.9 H (1.8-7.7) T/MM3 Lymph # (Auto) 2.9 (1-4.8) T/MM3 [place] # (Auto) 0.5 (0-0.8) T/MM3 Eos # (Auto) 0.5 (0-0.5) T/MM3 Baso # (Auto) 0.1 (0-0.2) T/MM3 Comprehensive Metabolic Panel 04/24/17 Range/Units 05:28 Sodium 143 (134-144) MEQ/L Potassium 3.9 (3.6-5) MEQ/L Chloride 108 H (98-107) MEQ/L Carbon Dioxide 30 (22-30) MEQ/L BUN 20.0 (9-20) MG/DL Creatinine 0.5 L (0.8-1.5) MG/DL Glucose 125 H (75-110) MG/DL Calcium 8.5 (8.4-10.2) MG/DL Intake and Output 04/23/17 04/24/17 04/24/17 22:59 06:59 14:59 Intake Total 614.950 / 614.950 467.084 / 467.084 802.066 / 802.066 Output Total 613 / 613 435 / 435 610 / 610 Balance 1.950 / 1.950 32.084 / 32.084 192.066 / 192.066 Intake: IV 444.950 / 444.950 467.084 / 467.084 802.066 / 802.066 Dexmedetomidine 1,000 mcg In NS 232.617 / 232.617 244.5 / 244.5 154.483 / 154.483 250ml 250 ml @ 0.2 MCG/KG/HR 7 .47 mls/hr IV .Q24H PRN Rx#: [id number] FentaNYL 1,000 mcg In Ns 80 ml 72.333 / 72.333 84.167 / 84.167 45.666 / 45.666 @ Per Protocol IV .Q0M PRN Rx#: [id number] Meropenem 1 gm In Ns 100 ml @ 100 / 100 100 / 100 200 mls/hr IV Q8H [facility] Rx#: [id number] Midazolam 100 mg In RTU-Saline 40 / 40 38.417 / 38.417 22.750 / 22.750 0 ml @ Per Protocol IV .Q0M PRN Rx#:[id number] Ns 1,000 ml @ 125 mls/hr IV . 579.167 / 579.167 Q8H [facility] Rx#:[id number] Tube Feeding 60 / 60 0 / 0 0 / 0 Left Nare 60 / 60 0 / 0 0 / 0 Intake, Gastric Tube Irrigant 110 / 110 Amount Left Nare 80 / 80 Oral 30 / 30 Output: Urine Amount (Catheter) 613 / 613 435 / 435 610 / 610 Other: Urine Appearance Clear Cloudy Cloudy Sediment Urine Color Yellow Light Lindsay Yellow Stool Color Brown Stool Consistency Soft Liquid Size of Bowel Movement Moderate # Incontinent Bowel Movements 1 Weight 306 lb 14.135 oz Patient Weight 04/25/17 06:59 Weight 306 lb 14.135 oz - Imaging and Cardiology Imaging & Cardiology Narrative: Date of Exam: 04/24/17 Ordering Provider: Luisa Green APRN Type of Exam(s): XR chest 1V Reason for Exam(s): f/u Indication: f/u PROCEDURE: XR chest 1V: Encounter: Initial Comparison: April 22, 2017 Findings: Support devices appear stable. Slight increase in right perihilar airspace opacity. Stable left-sided infiltrates. No pneumothorax. Small effusions. Heart size and mediastinal contours are stable. Impression: Worsening right perihilar infiltrate. Assessment and Plan - Assessment and Plan (1) Community acquired pneumonia Current visit: No Status: Acute (2) Acute respiratory failure with hypoxia Current visit: Yes Status: Acute (3) Bradycardia Current visit: Yes Status: Acute - Assessment and Plan 04/06/17 Possibly related to anesthesia Or vagal with positioning for chest x-ray - NSR now, EKG obtained is WNL - Echo reviewed remotely by . He reports: EF 65%, Mild TR, Mild MR, PAP 42, trace PI, essentially the same as on 04/03/17. - Obtain TSH with reflex T4. K+ 4.6, Mag 2.6 today - Continue to monitor cardiac telemetry 04/08/17 No further bradycardia or pauses seen on telemetry - Will continue to monitor telemetry 04/09/2017 Bradycardia: On 04/06/2017 he went bradycardic. Likely due to vagal response with repositioning. 04/06/2017 ECG: NSR. Echo: EF 65%, mild MR/TR, PAP 42 K+, Mag and TSH wnl. Tele: SR - no further bradycardia or pauses seen on telemetry. Respiratory failure/ARDS/pneumonia On vent - FIO2 80%, sedated on versed and fentanyl. Receiving Lasix 20mg IV BID per pulm for large U/O. 04/10/2017 Bradycardia - no further bradycardia or pauses Respiratory failure/ARDS/pneumonia - On vent 50%. Sedated on versed and fentanyl - receiving lasix 20mg IV BID per pulm. Fluid overload - EF 65%. mild PHTN, PAP 42. requiring vent support. - 04/09 I/O: 2391/4965 (-[id number]). Wt down 23 kg since admit. k+ and Cr wnl. 04/09 CXR: atelectasis and effusion. . - cont lasix per pulm. 04/15/17 Remains intubated - Slight ST elevation noted on Telemetry - EKG now - Check troponin 04/16/16 Troponin negative - EKG show early repolarization - continue to monitor cardiac telemetry 04/17/16 Remains on the vent, 40% today. - Stable from cardiac standpoint we will continue to monitor 04/18/16 No changes to plan of care regarding cardiology - Will continue to monitor cardiac telemetry. 04/22/16 Remains on the vent, 40%, PEEP of 5 today. Telemetry and EKG remains stable, will continue to monitor 04/24/16 EGD with placement of PEG tube and creation of Tracheostomy today. Fio2 40%, peep 6 today Continue to monitor cardiac telemetry. Thank you for allowing us to participate in the care of this patient, we will follow along with you. Hospital Course Summary Disclaimer: The visit summary below is not to be considered part of the above Progress Note. Hospital Course: Assessment Respiratory insufficiency with hypoxia Sepsis secondary to pneumonia Manifestations: Tachycardia, tachypnea, leukocytosis Community-acquired pneumonia Anasarca Morbid obesity-BMI 42.0 Hyperglycemia-POA Tinea corporis Tobacco dependence 04/02/17 Hospital admission Admit to inpatient status under the care of the hospitalist service, Dr. Lewis attending. It is expected that his stay will exceed 2 overnights given his sepsis secondary to pneumonia and overall condition. SCDs and Lovenox for DVT prophylaxis Urinalysis for laboratory completeness. Repeat CBC and BMP in am to follow leukocytosis, renal function and electrolytes. Schedule echocardiogram to evaluate cardiac structure and function given his anasarca and dyspnea. Oxygen, DuoNeb treatments, Acapella, and guaifenesin for respiratory symptoms. Continue Rocephin and Zithromax initiated and the emergency room. Blood cultures were drawn prior to antibiotic initiation. RT consult tobacco cessation. Terbinafine topically for his tinea corporis Patient wishes to be a full code. Case discussed with Dr. Lewis. Case management will need to assist in finding patient a PCP. 04/04/17 12:03 Plan The patient continues to require mechanical ventilation and is on 100% FiO2 regarding his ARDS and pneumonia. Continue ventilator support - Dr. Pineda is following. His help is greatly appreciated. Continue Levaquin initiated 04/03/2017 and Rocephin initiated 04/02/2017 Continue Solu-Medrol Discussed with Dr. Pineda, will change Lovenox to prophylactic dose. Venous Doppler of the legs were negative for DVT. No signs of right heart strain on echocardiogram. Advance tube feedings Nutren luminary 1.5 to goal of 70 ML's per hour. Start free water 400 ML's every 8 hours. DC IV fluids Vishal blood pressure off of IV fluids. May need to initiate antihypertensive Start Lantus 10 units subcutaneous daily. Increase to medium dose sliding scale insulin. Continue Lasix 40 mg IV every 12. Patient is diuresing well. Check CBC and renal panel tomorrow. Chest x-ray tomorrow. Assess with Dr. Pineda, the patient's significant other, and the patient's nurse. 04/05/17 09:31 Plan The patient continues to require mechanical ventilation and is now on 95% FiO2 regarding his ARDS and pneumonia. Continue ventilator support per Dr. Pineda Continue Levaquin initiated 04/03/2017 and Rocephin initiated 04/02/2017. Continue Solu-Medrol Regarding hyperkalemia, will try to change to feeding to a renal tube feeds. Check ABG. (7.32/79/103 on 95% FiO2) Recheck basic metabolic profile later today. May need to increase fluids followed by diuresis for hyperkalemia Increase Lantus to 20 units subcutaneous daily for hyperglycemia. Increase sliding scale insulin to high dose Start Reglan and Dulcolax suppositories to stimulate GI tract. Decrease tube feed rate to 50 ML's for now. Greater than 40 minutes critical care time. 04/07/2017 Plan The patient continues to require mechanical ventilation and FiO2 100% regarding his ARDS and pneumonia. The patient has tolerated discontinuation of propofol and initiation of Versed. The patient is tolerating his tube feedings. Will advance as tolerated. Will increase free water to 200 ML's every 4 hours and decrease Lasix to 20 mg IV every 12 regarding his elated sodium. Continue to monitor blood pressure closely. Continue Levaquin initiated 04/03/2017 and Rocephin initiated 04/02/2017. Continue Solu-Medrol Regarding hyperkalemia-is resolved. Continue renal tube feeds Continue Reglan and Dulcolax suppositories to stimulate GI tract. Greater than 45 minutes of critical care time spent seeing and evaluating the patient. The patient's brother was updated. 04/08/17 09:49 Plan Overall, the patient is stable. He is diuresing well. Weight is down approximately 22 kg over the past 1 week. He has been on the ventilator for one week now. FiO2 turned down to 95% this morning. Consulted Dr. Johnson regarding positive blood culture and antibiotic recommendations The patient continues to require mechanical ventilation regarding his ARDS and pneumonia. FiO2 down to 95% this morning The patient is tolerating his tube feedings. Will advance as tolerated to goal. Will increase free water to 250 ML's every 4 hours. Continue Lasix 20 mg IV every 12. Continue to monitor blood pressure closely. Continue Levaquin initiated 04/03/2017 and Rocephin initiated 04/02/2017. Continue Solu-Medrol and breathing treatments Regarding hyperkalemia- Continue renal tube feeds Continue Reglan and Dulcolax suppositories to stimulate GI tract. Regarding possible mild upper GI bleed, will Gastric occult NG drainage. Hold Lovenox for now. Greater than 45 minutes of critical care time spent seeing and evaluating the patient. 04/09/17 Overall, the patient is improving. FiO2 is now down to 70%. The patient appears to be nearly euvolemic at this time. We'll continue Lasix. Weight is down approximately 22 kg over the past [address] Johnson recommends approximately 10 days of broad-spectrum antibiotics for his pneumonia. She recommended discontinuation of vancomycin today with corynebacterium found in one of 2 blood cultures on April 06 most likely being a contaminant. Currently at goal rate on tube feedings. He is on a renal formulation because of hyperkalemia. May need to increase free water further if sodium does not improving. Continue Levaquin initiated 04/03/2017 and Rocephin initiated 04/02/2017. Rocephin discontinued on 04/06/2017 and cefepime started. Vancomycin started and discontinued on 04/09/2017 Continue Solu-Medrol and breathing treatments Add MiraLAX for constipation Continue Lovenox for DVT prophylaxis (gastric occult from NG drainage was negative) 04/10/17 Debbie Continue with levofloxacin and cefepime for antimicrobial coverage - ID recommending an approximate 10 day course. Will continue with Solu-Medrol at 40mg IV q 8 hours -started on 03/26/17. Potentially could start to decrease. Continue neb treatments and pulmonary toilet. Nutritional support with DH tube feeding. Potassium normal. LFT with gradual increase-potential fatty liver secondary to continuous TF. Continue Lasix. Weight is down approximately 22 kg over the past 1 week. Renal status stable. Blood sugars showing persistent elevation in the low to mid 200's. Will increase Lantus to 34 units at night. 04/11/17 Continue with levofloxacin and cefepime for antimicrobial coverage - ID recommending an approximate 10 day course. With increased temp, persistent leukocytosis, steroid and antibiotic use will start Diflucan 200mg IV daily. Continue mechanical ventilation for respiratory support. Pulm decreased Solu-Medrol to 40mg IV q 12 hours. Continue neb treatments and pulmonary toilet. Slowly able to wean down FIO2. Nutritional support with DH tube feeding. Continue Lasix 20 mg IV BID. Creatinine and BP stable. Potassium with increase to 5.4 this am. Blood sugars still with elevations - will continue current regimen, watching for decrease with decreased Solu-Medrol. 04/12/17 Continue with levofloxacin and cefepime for antimicrobial coverage - ID recommending an approximate 10 day course. Diflucan 200mg IV daily started 04/11/17. Continue mechanical ventilation for respiratory support - Solu-Medrol at 40mg IV q 12 hours. O2 needs increased today - likely mucous plugging. Creatinine with increase to 1.1. Edema much improved. Will decrease Lasix to 20mg daily to minimize overdiuresis. Blood sugars still with elevations - Increase Lantus to 38 units at HS. 04/13/17 Continue with levofloxacin and cefepime for antimicrobial coverage - ID recommending an approximate 10 day course. Diflucan 200mg IV daily started 04/11/17. Vancomycin started on 04/12/17 secondary to temp elevations. Continue mechanical ventilation for respiratory support. Increasing FIO2 - needing 100%. Sputum culture ordered by Dr Pineda. Solu-Medrol at 40mg IV q 12 hours. Continue neb treatments and pulmonary toilet. Nutritional support with DH tube feeding. Creatinine did decrease to 0.8. With increasing oxygen needs and increased intake as compared to output past 2 days will give 20mg IV Lasix. Blood sugars still with elevations - Increase Lantus to 42 units at HS. 04/14/17 Continue with levofloxacin and cefepime for antimicrobial coverage Diflucan 200mg IV daily started 04/11/17. Vancomycin started on 04/12/17 secondary to temp elevations. Continue mechanical ventilation for respiratory support. Sputum culture ordered 04/13 with results pending. Solu-Medrol at 40mg IV q 12 hours. Nutritional support with DH tube feeding. Potassium and sodium normal. Blood sugars still with elevations - Increase Lantus to 46 units at HS. Doppler legs pending - ? DVT as more pedal edema present. 04/15/17 Continue with levofloxacin and cefepime for antimicrobial coverage - ID recommending an approximate 10 day course. Diflucan 200mg IV daily started 04/11/17. Vancomycin started on 04/12/17 secondary to temp elevations. Continue mechanical ventilation for respiratory support. FIO2 needs decreasing - pulm weaning. Secretions decreasing. Sputum culture ordered 04/13 with normal respiratory jesus. Solu-Medrol at 40mg IV q 12 hours. Continue neb treatments and pulmonary toilet. Nutritional support with DH tube feeding. Potassium and sodium normal. Blood sugars still with elevations - Increase Lantus to 50 units at HS. Increase Lasix back to 20mg IV BID due to increasing edema to legs. Doppler legs from 04/14/17 showing no DVT - continue Lovenox 40mg SQ daily and SCD. 04/16/17 ID recommending stopping antibiotics and observing. Continue mechanical ventilation for respiratory support. FIO2 needs decreasing - pulm weaning. Secretions decreasing. Solu-Medrol at 40mg IV q 12 hours. Continue neb treatments and pulmonary toilet. Nutritional support with DH tube feeding. Potassium and sodium normal. Blood sugars still with elevations - Increase Lantus to 50 units at HS. Increase Lasix back to 20mg IV BID due to increasing edema to legs. Doppler legs from 04/14/17 showing no DVT - continue Lovenox 40mg SQ daily and SCD. Condition critical, showing improvement from the weekend. Continued CCU care needed secondary to respiratory failure and mechanical ventilation. 04/17/17 Observing off antibiotics. Continue mechanical ventilation for respiratory support. FIO2 needs decreasing - pulm weaning. Secretions decreasing. Solu-Medrol at 40mg IV daily. Continue neb treatments and pulmonary toilet. Nutritional support with DH tube feeding. Monitor potassium and sodium. Increasing TF to 65 ml/hr. Blood sugars still with elevations - Increase Lantus to 50 units at HS. Increase scheduled Novolog and sliding scale. Increase Lasix back to 20mg IV BID due to increasing edema to legs. 04/19 Observing off antibiotics. Recheck CBC. Steroids DC'd. Febrile today. Repeat cx. Continue mechanical ventilation for respiratory support. FIO2 needs decreasing - pulm holding off on weaning d/t fever. Solu-Medrol at 40mg IV daily. Continue neb treatments and pulmonary toilet. Nutritional support with DH tube feeding. Monitor potassium and sodium. TF goal is 65 ml/hr. Blood sugars may improve off solu-medrol. Monitor. Continuing Lantus, scheduled Novolog and sliding scale. Lasix at to 20mg IV BID due to edema to legs. Abdomen slightly distended. Bowels have slowed down on lower dose of Reglan. Will plan for daily suppository and continue MoM. 04/20 Vanco and cefepime restarted for fever, suspecting new pneumonia. Continue mechanical ventilation for respiratory support. FIO2 needs increasing, fever, pneumonia - pulm holding off on weaning. Solu-Medrol DC'd 04/20. Continue neb treatments and pulmonary toilet. Blood sugars trending down off solu-medrol. Monitor. Continuing Lantus, scheduled Novolog and sliding scale. Nutritional support with DH tube feeding. Monitor potassium and sodium. TF goal is 65 ml/hr. Lasix at to 20mg IV BID due to edema to legs. Abdomen slightly distended. Bowels have slowed down on lower dose of Reglan again, will increase to 10 mg iv q6 and monitor. Daily suppository and continue MoM. KUB does not show obstruction. Pharmacy out of nystatin s&s for thrush. Start Diflucan 04/21/17 Continue Vancomycin and cefepime - suspecting new pneumonia. Continue mechanical ventilation for respiratory support. FIO2 needs with slight improvement today. Continue neb treatments and pulmonary toilet. DH not flushing - will attempt to replace. If not able to restart TF would hold routine insulin and decrease Lantus to 15 units this evening to decrease potential for hypoglycemia. TF goal is 65 ml/hr. Lasix at to 20mg IV BID due to edema to legs. Creatinine, potassium, and BP stable. Discussed with Pulm about family concern regarding potential dental abscess - worry respiratory status not stable enough at this time to risk CT scan. 04/22/17 Continue Vancomycin and cefepime - WBC with decrease, still temp elevations. Continue mechanical ventilation for respiratory support. FIO2 needs down to 40% . Continue neb treatments and pulmonary toilet. DH replaced last night. Continuing with TF. TF goal is 65 ml/hr. Will give additional 20mg IV Lasix today as intake greater than output. Creatinine and potassium normal. Dr Ibarra consulted for possible trach - plans on 04/24. 04/23/17 Continue cefepime - Vancomycin stopped by ID as no staph isolated. WBC with decrease to 12.7. Continue mechanical ventilation for respiratory support. FIO2 needs down to 40% . Trach planned for tomorrow. Continue neb treatments and pulmonary toilet. PRN Ibuprofen added to help temp elevation. TF to hold after midnight tonight. Will hold Lantus 50 units and Scheduled insulin to decrease risk for hypoglycemia. Lantus 10 units tonight x1. <Ebenezer Mauricio - Last Filed: 04/25/17 15:22> Exam Vital signs: Temperature 102.7 F H 04/25/17 12:30 Pulse Rate 76 04/25/17 14:00 Respiratory Rate 26 H 04/25/17 14:00 Blood Pressure 126/69 04/25/17 12:45 Pulse Oximetry 94 04/25/17 14:00 - Urinary Catheter Management Urethral Cath placed during this visit: no Results 04/25/17 05:18 04/25/17 05:18 Cardiac Enzymes 04/25/17 Range/Units 05:18 AST 51 (17-59) U/L CBC 04/25/17 Range/Units 05:18 WBC 10.9 (4.5-11.0) T/MM3 RBC 3.84 L (4.50-5.90) M/MM3 Hgb 11.8 L (13.5-17.5) GM/DL Hct 38.3 L (41-53) % Plt Count 163 (130-400) T/MM3 Neut # (Auto) 7.4 (1.8-7.7) T/MM3 Lymph # (Auto) 2.4 (1-4.8) T/MM3 [place] # (Auto) 0.5 (0-0.8) T/MM3 Eos # (Auto) 0.4 (0-0.5) T/MM3 Baso # (Auto) 0.1 (0-0.2) T/MM3 Comprehensive Metabolic Panel 04/25/17 Range/Units 05:18 Sodium 143 (134-144) MEQ/L Potassium 3.3 L (3.6-5) MEQ/L Chloride 107 (98-107) MEQ/L Carbon Dioxide 28 (22-30) MEQ/L BUN 21.0 H (9-20) MG/DL Creatinine 0.5 L (0.8-1.5) MG/DL Glucose 207 H (75-110) MG/DL Calcium 8.7 (8.4-10.2) MG/DL AST 51 (17-59) U/L ALT 116 H (21-72) U/L Alkaline Phosphatase 67 (38-126) U/L Total Protein 6.4 (6.3-8.2) G/DL Albumin 3.1 L (3.5-5.0) G/DL Intake and Output 04/25/17 04/25/17 04/25/17 06:59 14:59 22:59 Intake Total 1129.501 / 1129.501 656.95 / 656.95 Output Total 861 / 861 895 / 895 Balance 268.501 / 268.501 -238.05 / -238.05 Intake: IV 429.501 / 429.501 36.95 / 36.95 Dexmedetomidine 1,000 mcg In NS 260.000 / 260.000 29.45 / 29.45 250ml 250 ml @ 0.2 MCG/KG/HR 7 .47 mls/hr IV .Q24H PRN Rx#: [id number] FentaNYL 1,000 mcg In Ns 80 ml 43.584 / 43.584 5 / 5 @ Per Protocol IV .Q0M PRN Rx#: [id number] Meropenem 1 gm In Ns 100 ml @ 100 / 100 200 mls/hr IV Q8H [facility] Rx#: [id number] Midazolam 100 mg In RTU-Saline 25.917 / 25.917 2.5 / 2.5 0 ml @ Per Protocol IV .Q0M PRN Rx#:[id number] Tube Feeding 450 / 450 370 / 370 Left Upper Quadrant 450 / 450 370 / 370 Intake, Gastric Tube Irrigant 250 / 250 250 / 250 Amount Left Upper Quadrant 250 / 250 250 / 250 Output: Urine Amount (Catheter) 861 / 861 895 / 895 Other: Urine Appearance Cloudy Sediment Urine Color Light Lindsay Yellow Weight 138.2 kg Patient Weight 04/26/17 06:59 Weight 138.2 kg Assessment and Plan - Assessment and Plan (1) Community acquired pneumonia Current visit: No Status: Acute (2) Acute respiratory failure with hypoxia Current visit: Yes Status: Acute (3) Bradycardia Current visit: Yes Status: Acute - Attestation Attestation Narrative: 04/25/17 15:21 Recommendation After examining the patient I agree with the above assessment. I am involved in the formulation of the patient's plan of care. Hospital Course Summary Disclaimer: The visit summary below is not to be considered part of the above Progress Note.
[2017-04-24] MEDS: ACETAMINOPHEN 650 MG SUPPOSITORY PR PRN (13:08)
[2017-04-24] MEDS: BENZOCAINE 20% ORAL GEL (Max Strength) MM PRN (13:09)
--- NOTE | 2017-04-24 15:46 | Operative Note ---
DATE OF SERVICE 05/05/2018 SURGEON Artur Ibarra MD INFORMATION TECHNOLOGY SECURITY ANALYST Dr. Artur Gonzalez PREOPERATIVE DIAGNOSIS Respiratory failure requiring prolonged mechanical ventilation. Inability to take adequate p.o./enteral nutrition. POSTOPERATIVE DIAGNOSES Respiratory failure requiring prolonged mechanical ventilation. Inability to take adequate p.o./enteral nutrition. PROCEDURE Esophagogastroduodenoscopy, insertion of percutaneous endoscopic gastrostomy tube, tracheostomy. ANESTHESIA General endotracheal/TIVA. BRIEF HISTORY/INDICATIONS Mr. Zamora is a 42-year-old gentleman who recently developed pneumonia with associated sepsis. He has been on a ventilator for a prolonged period time as a result of his respiratory failure. He has been receiving his enteral nutrition through a Dobbhoff feeding tube. As a result of the above indications it was recommended that he undergo placement of a feeding gastrostomy tube as well as placement of a tracheostomy tube to facilitate his enteral nutrition and weaning from mechanical ventilation. For completeness please refer to notes included in the patient's chart. NARRATIVE OF PROCEDURE After informed consent was obtained the patient was brought to the operative suite and placed on the table in supine fashion. The upper abdomen was then prepped and draped in sterile fashion. Formal time-out was then completed. Next, an Olympus gastroscope was inserted into the oral hypopharynx and subsequently the esophagus under direct visualization. The gastroscope was advanced through the esophagus, stomach, pylorus, duodenal bulb, and second portion of the duodenum. Scope was slowly withdrawn. First and second portions of the duodenum were without noted abnormalities. No evidence for duodenitis or ulcerations was noted. The scope was drawn back to the prepyloric region and antrum. There was a component of some gastritis but no anika ulcerations were noted. J-maneuver was performed. Cardia and fundus were within normal limits. Endoscopically there was no evidence for a significant hiatal hernia. Stomach was then insufflated. Palpation was then performed just beneath the left subcostal margin. One could see good indentation of the anterior abdominal wall with palpation. 1% lidocaine was injected at this location. A 2-cm incision was made overlying the area of analgesia. A Cook needle was then introduced through the incision and directly into the gastric lumen as visualized via the gastroscope. Guidewire was advanced through the Cook needle. Guidewire was then snared and withdrawn out through the patient's oral hypopharynx. A lubricated Bard gastrostomy tube was advanced over the guidewire and pulled out through the incision within the left upper quadrant. The snare was placed around the guidewire and the gastroscope was gently pulled into the esophageal lumen with the gastrostomy tube as it was being pulled inward. The snare was then released. Gastroscope was continued to be advanced until the bolster portion of the gastrostomy tube was taut against the anterior abdominal wall. A #3 cydney was present upon the G-tube at the surface of the skin. The gastroscope was then slowly withdrawn. No esophageal mucosal abnormalities were noted. The gastroscope was withdrawn from the patient's oral hypopharynx. The patient tolerated this without difficulty. Next, attention was then directed toward performing tracheostomy. The anterior neck was then prepped and draped in sterile fashion. Thyroid cartilage was palpated as well as the sternal notch. A transverse incision was made about midway upon the anterior neck between the sternal notch and the cricoid cartilage. The patient was morbidly obese and the incision was larger than typically one would make for a tracheostomy. The incision was likely about 6 cm in length. Dissection was carried down through a considerable amount of subcutaneous tissues until the platysma level was identified. Platysma was then divided. A subplatysmal flap was then created in a cephalad and caudad direction so that one could now see strap muscles. A Ninoska retractor was placed to provide adequate exposure. Strap muscles were then opened along their midline. One could then see the cricoid cartilage and beginning to see the trachea itself. The isthmus of the thyroid did cover a portion of the anterior trachea. The isthmus of the thyroid was divided with electrocautery. One could then visualize the anterior aspect of the tracheal rings. The first, second, and third tracheal rings were counted. An H-like incision was made adjacent to the third tracheal ring. Anesthesia was requested to decrease the FIO2 to room air as the trachea was being opened with cautery. The third tracheal ring was divided with Metzenbaum scissors along its midline. Two guide sutures were placed with 2-0 Prolene and brought out through the skin incision. As the trachea was being opened the underlying balloon was deflated of the endotracheal tube. Anesthesia was requested to pull back the endotracheal tube a few centimeters. Next, a #8 tracheostomy tube was then advanced into the opening of the trachea and advanced distally. The balloon was then inflated. One of the guide sutures was pulled through during this process. Attention was then directed towards closure. Deep subcutaneous tissues were reapproximated by placing several simple interrupted sutures of 3- 0 Vicryl. Skin edges were reapproximated with 2-0 Prolene. The patient's O2 sats did drift downward to the mid-70 range as the tracheostomy tube was being placed into the trachea. Once the balloon was inflated and the obturator was placed and the patient was once again placed back on the ventilator his O2 sats quickly increased back up into the mid-90 range without difficulty. The tracheostomy flange was then secured by placing two single interrupted sutures of 0-Prolene beneath the flange and tying the suture to the skin and subsequently bringing a portion of the suture through the opening portions of the flange. To further secure the tracheostomy so that it could not be displaced, an umbo tape tie that was present with the tracheostomy set was tied to the flange and brought forth around the posterior neck and retied on the opposite side. Xeroform gauze was placed beneath the tracheostomy. The patient tolerated procedure without difficulty and was in the process of being sent back to the ICU in stable condition. LUCIE
--- NOTE | 2017-04-24 16:51 | Anesthesia Postoperative Note ---
- Date and Time Date: 04/24/17 Time: 16:50 - Status Patient Participated in Evaluation: Patient Intubated (Trached) Vital Signs: Temperature 102 F H 04/24/17 16:00 Pulse Rate 82 04/24/17 16:00 Respiratory Rate 25 H 04/24/17 16:00 Blood Pressure 130/70 04/24/17 16:00 Pulse Oximetry 92 04/24/17 16:00 Respiratory Function: Airway Patent Cardiovascular Function: Regular Pulse EKG: Sinus Rhythm Pain Intensity: 0 (FLACC) Unable to Assess Pain Due to: Medicated/Sleeping (Sedated) Hydration: IV Infusing Complications During Recover: None Apparent - Follow-Up Instructions Instructions: Per Surgeon
--- NOTE | 2017-04-24 17:37 | Pulmonology Progress Note ---
Subjective Principal diagnosis: respiratory failure Interval history: Today Gianni had a #8 Shiley tracheostomy tube and EGD with PEG tube pacement. He is doing very well and nursing team is weaning sedation. He remains very weak. He is on AC/VC+ vent with Fio2 40%, peep 6. He has had no further desat episodes. Secretions have been manageable. He is still having fevers, up to 102 this afternoon Exam Vital signs: Temperature 102 F H 04/24/17 16:00 Pulse Rate 82 04/24/17 16:00 Respiratory Rate 25 H 04/24/17 16:00 Blood Pressure 130/70 04/24/17 16:00 Pulse Oximetry 92 04/24/17 16:00 - Constitutional no acute distress, obese - Routine HEENT Exam Head: Present: normocephalic, atraumatic Eye: Present: PERRL ENT: Present: mucous membranes moist - Routine Neck Exam Present: supple, trachea midline Comments: 8.0 Shiley tracheostomy. Guaze dressings placed behind flange. Site is clean and trach is functioning properly. - Routine Respiratory Exam Present: patient mechanically ventilated, decreased breath sounds. Absent: accessory muscle use - Routine Cardiovascular Exam Present: RRR - Routine Abdominal Exam Present: soft Comments: PEG site is clean and dressed. - Routine Extremities Exam Present: edema. Absent: cyanosis, clubbing - Urinary Catheter Management Urethral Cath placed during this visit: yes Urethral indwelling: Yes Insertion date: 04/02/17 Insertion time: 22:20 Assessment and Plan (1) Acute respiratory failure with hypoxia Status: Acute Assessment and plan: Discussed case with nursing and RT. Recommend continuing to wean sedation as tolerated. Wean vent to start PSV trials during the day when supervised and awake. Discussed case with family and Dr Lewis. It may be in the patient's best interest to move to LTAC, where he can continue vent weaning and start rehab. Current Visit: Yes - Assessment and Plan Acute Hypoxic hypercapnic Respiratory Failure CAP Pneumonia Sepsis/ARDS Likely COPD Likely GLADYS - will need OP PSG Elevated LFT's HyperKalemia Fluid overload Plan: Pt currently on vent F 15 Vt 500, peep 6, 40%, was 70% this am. Awaiting trach and peg in am. Still febrile but WBC improving. CX's NTD and currently on merrem , ID to treat for 7 days. f/u CXR in am, cont on BT's with pulmicort BID, a/a q4 and 3% q6, currently off steroids. Micah continue to follow closely. - Time Spent With Patient Total time spent is greater than 50% in coordination of care (as documented) at patient's floor/unit and/or counseling patient: 25 - 35 minutes
--- NOTE | 2017-04-24 17:47 | Progress Note ---
- Date 04/24/17 Subjective: F/U: Acute respiratory failure, ARDS, Pneumonia Doing well this evening. Tolerated Trach and feeding tube placement. Awake. Will squeeze right hand to command. Not able to verbalize due to trach. Objective Vital signs: Temperature 102 F H 04/24/17 16:00 Pulse Rate 82 04/24/17 16:00 Respiratory Rate 25 H 04/24/17 16:00 Blood Pressure 130/70 04/24/17 16:00 Pulse Oximetry 92 04/24/17 16:00 Rhythm: Normal Sinus Rhythm Height/Weight/BMI: Height 1.8 m Weight 139.2 kg Body Mass Index 51.2 - Constitutional Present: well nourished, well developed, morbidly obese - Routine HEENT Exam Head: Present: normocephalic, atraumatic Eye: Present: EOMI, PERRL ENT: Present: mucous membranes moist - Routine Respiratory Exam Present: patient mechanically ventilated, diminished air movement. Absent: respiratory distress, wheezes, crackles - Routine Cardiovascular Exam Present: RRR, no murmur - Routine Abdominal Exam Present: soft, non tender, distended. Absent: normoactive bowel sounds ( Decreased ) - Routine Exam Comments: Walker present - Routine Extremities Exam Present: edema (Pedal bilaterally. SCD in place ). Absent: cyanosis, clubbing - Routine Musculoskeletal Exam Musculoskeletal: Present: no clubbing or cyanosis - Routine Skin Exam Present: warm - Routine Neurological Exam Present: alert, CN II-XII intact, hearing grossly intact - Routine Psychiatric Exam Absent: anxious, agitated Results - Labs CBC & Chem 7: 04/24/17 05:28 04/24/17 05:28 Microbiology Results: Microbiology 04/19/17 13:37 Peripheral/Iv Start Blood Culture - Final No Growth After 5 Days 04/19/17 13:26 Port/Picc Gram Stain - Final 04/19/17 13:26 Port/Picc Blood Culture - Final Coag negative Staphylococcus 04/21/17 13:33 Blood Cryptococcal Antigen (Serum) - Final 04/19/17 15:45 Sputum, Suctioned Gram Stain - Final 04/19/17 15:45 Sputum, Suctioned Sputum Culture - Final Normal Respiratory Jesus 04/13/17 14:50 Sputum, Suctioned Gram Stain - Final 04/13/17 14:50 Sputum, Suctioned Sputum Culture - Final Normal Respiratory Jesus Present 04/09/17 10:00 Port/Picc Blood Culture - Final No Growth After 5 Days 04/09/17 09:24 Port/Picc Blood Culture - Final No Growth After 5 Days 04/06/17 10:37 Port/Picc Gram Stain - Final 04/06/17 10:37 Port/Picc Blood Culture - Final Corynebacterium species 04/06/17 11:03 Port/Picc Blood Culture - Final No Growth After 5 Days 04/07/17 08:43 Nasopahrynx Gram Stain - Final 04/07/17 08:43 Nasopahrynx Nasopharyngeal Culture - Final Normal Respiratory Jesus 04/03/17 11:30 Sputum, Suctioned Gram Stain - Final 04/03/17 11:30 Sputum, Suctioned Sputum Culture - Final Normal Respiratory Jesus 04/03/17 10:38 Urine Legionella Urinary Antigen - Final 04/03/17 10:38 Urine Streptococcus pneumoniae Antigen (M - Final Assessment and Plan (1) Community acquired pneumonia Current visit: No Status: Acute Assessment and Plan: Assessment Acute hypoxic and hypercarbic respiratory failure-requiring mechanical ventilation. Intubated on 04/02/2017. Versed and fentanyl for sedation ARDS Community - acquired pneumonia-severe, requiring intubation. Levaquin initiated 04/03/2017 and Rocephin initiated 04/02/2017. Changed Rocephin to cefepime on . Sepsis secondary to pneumonia on admission Manifestations: Tachycardia, tachypnea, leukocytosis. Lactate normal on admission CODE BLUE/bradycardia versus short lasting asystole on 04/06/2017-patient received chest compressions 3 - EKG and troponin post event were normal Elevated d-dimer 555 - Lovenox therapeutic dose initiated 04/06/2017. Blood culture one of 2 on 04/06/2027 positive for corynebacterium -discussed with Dr. Johnson. This is most likely contaminant. Anasarca - improving; significant decrease of fluid since admit Echocardiogram revealed normal EF, left ventricular hypertrophy, PA pressure 41 with mild pulmonary hypertension (echo 04/06/2017 unchanged on recheck)-BNP has been normal. Diabetes Mellitus Type 2 - A1C 7.1 on admission (new diagnosis)-on Lantus, scheduled NovoLog and sliding scale insulin Possible COPD Probable obstructive sleep apnea Chronic back pain with high-dose ibuprofen and Tylenol use prior to admission Tinea corporis/ringworm? Tobacco dependence Hyperkalemia with potassium up to 5.5 of undetermined etiology (Not POA). Possible sinusitis right nears with copious thick nasal secretions - C/S showing normal jesus Mild hypernatremia (Not POA) Morbid obesity-BMI 42.0 Plan Continue meropenem for antimicrobial coverage Continue mechanical ventilation for respiratory support. Trach performed successfully. Continue neb treatments and pulmonary toilet. Feeding tube placed. Able to restart tube feeding this evening at 2100. Will restart Lantus at 40 units tonight. Can stop IVF initiated with surgery once TF started. Start TF at 60cc/hr. Recheck CMP in am secondary to medication use. Will repeat CBC in am due to leukocytosis. Case discussed with CCU nursing and family. Time spent with patient care 25 minutes. DVT Prophylaxis: SCD's, Lovenox Resuscitation Status: Full Code - Time spent with patient Time with patient PN: 25 minutes - Physician Narrative Physician: Wally Lewis MD Narrative: Date: 04/24/17 Time: 1744 Hospital Course Summary Disclaimer: The visit summary below is not to be considered part of the above Progress Note. Hospital Course: Assessment Respiratory insufficiency with hypoxia Sepsis secondary to pneumonia Manifestations: Tachycardia, tachypnea, leukocytosis Community-acquired pneumonia Anasarca Morbid obesity-BMI 42.0 Hyperglycemia-POA Tinea corporis Tobacco dependence 04/02/17 Hospital admission Admit to inpatient status under the care of the hospitalist service, Dr. Lewis attending. It is expected that his stay will exceed 2 overnights given his sepsis secondary to pneumonia and overall condition. SCDs and Lovenox for DVT prophylaxis Urinalysis for laboratory completeness. Repeat CBC and BMP in am to follow leukocytosis, renal function and electrolytes. Schedule echocardiogram to evaluate cardiac structure and function given his anasarca and dyspnea. Oxygen, DuoNeb treatments, Acapella, and guaifenesin for respiratory symptoms. Continue Rocephin and Zithromax initiated and the emergency room. Blood cultures were drawn prior to antibiotic initiation. RT consult tobacco cessation. Terbinafine topically for his tinea corporis Patient wishes to be a full code. Case discussed with Dr. Lewis. Case management will need to assist in finding patient a PCP. 04/04/17 12:03 Plan The patient continues to require mechanical ventilation and is on 100% FiO2 regarding his ARDS and pneumonia. Continue ventilator support - Dr. Pineda is following. His help is greatly appreciated. Continue Levaquin initiated 04/03/2017 and Rocephin initiated 04/02/2017 Continue Solu-Medrol Discussed with Dr. Pineda, will change Lovenox to prophylactic dose. Venous Doppler of the legs were negative for DVT. No signs of right heart strain on echocardiogram. Advance tube feedings Nutren luminary 1.5 to goal of 70 ML's per hour. Start free water 400 ML's every 8 hours. DC IV fluids Vishal blood pressure off of IV fluids. May need to initiate antihypertensive Start Lantus 10 units subcutaneous daily. Increase to medium dose sliding scale insulin. Continue Lasix 40 mg IV every 12. Patient is diuresing well. Check CBC and renal panel tomorrow. Chest x-ray tomorrow. Assess with Dr. Pineda, the patient's significant other, and the patient's nurse. 04/05/17 09:31 Plan The patient continues to require mechanical ventilation and is now on 95% FiO2 regarding his ARDS and pneumonia. Continue ventilator support per Dr. Pineda Continue Levaquin initiated 04/03/2017 and Rocephin initiated 04/02/2017. Continue Solu-Medrol Regarding hyperkalemia, will try to change to feeding to a renal tube feeds. Check ABG. (7.32/79/103 on 95% FiO2) Recheck basic metabolic profile later today. May need to increase fluids followed by diuresis for hyperkalemia Increase Lantus to 20 units subcutaneous daily for hyperglycemia. Increase sliding scale insulin to high dose Start Reglan and Dulcolax suppositories to stimulate GI tract. Decrease tube feed rate to 50 ML's for now. Greater than 40 minutes critical care time. 04/07/2017 Plan The patient continues to require mechanical ventilation and FiO2 100% regarding his ARDS and pneumonia. The patient has tolerated discontinuation of propofol and initiation of Versed. The patient is tolerating his tube feedings. Will advance as tolerated. Will increase free water to 200 ML's every 4 hours and decrease Lasix to 20 mg IV every 12 regarding his elated sodium. Continue to monitor blood pressure closely. Continue Levaquin initiated 04/03/2017 and Rocephin initiated 04/02/2017. Continue Solu-Medrol Regarding hyperkalemia-is resolved. Continue renal tube feeds Continue Reglan and Dulcolax suppositories to stimulate GI tract. Greater than 45 minutes of critical care time spent seeing and evaluating the patient. The patient's brother was updated. 04/08/17 09:49 Plan Overall, the patient is stable. He is diuresing well. Weight is down approximately 22 kg over the past 1 week. He has been on the ventilator for one week now. FiO2 turned down to 95% this morning. Consulted Dr. Johnson regarding positive blood culture and antibiotic recommendations The patient continues to require mechanical ventilation regarding his ARDS and pneumonia. FiO2 down to 95% this morning The patient is tolerating his tube feedings. Will advance as tolerated to goal. Will increase free water to 250 ML's every 4 hours. Continue Lasix 20 mg IV every 12. Continue to monitor blood pressure closely. Continue Levaquin initiated 04/03/2017 and Rocephin initiated 04/02/2017. Continue Solu-Medrol and breathing treatments Regarding hyperkalemia- Continue renal tube feeds Continue Reglan and Dulcolax suppositories to stimulate GI tract. Regarding possible mild upper GI bleed, will Gastric occult NG drainage. Hold Lovenox for now. Greater than 45 minutes of critical care time spent seeing and evaluating the patient. 04/09/17 Overall, the patient is improving. FiO2 is now down to 70%. The patient appears to be nearly euvolemic at this time. We'll continue Lasix. Weight is down approximately 22 kg over the past [address] Johnson recommends approximately 10 days of broad-spectrum antibiotics for his pneumonia. She recommended discontinuation of vancomycin today with corynebacterium found in one of 2 blood cultures on April 06 most likely being a contaminant. Currently at goal rate on tube feedings. He is on a renal formulation because of hyperkalemia. May need to increase free water further if sodium does not improving. Continue Levaquin initiated 04/03/2017 and Rocephin initiated 04/02/2017. Rocephin discontinued on 04/06/2017 and cefepime started. Vancomycin started and discontinued on 04/09/2017 Continue Solu-Medrol and breathing treatments Add MiraLAX for constipation Continue Lovenox for DVT prophylaxis (gastric occult from NG drainage was negative) 04/10/17 Debbie Continue with levofloxacin and cefepime for antimicrobial coverage - ID recommending an approximate 10 day course. Will continue with Solu-Medrol at 40mg IV q 8 hours -started on 03/26/17. Potentially could start to decrease. Continue neb treatments and pulmonary toilet. Nutritional support with DH tube feeding. Potassium normal. LFT with gradual increase-potential fatty liver secondary to continuous TF. Continue Lasix. Weight is down approximately 22 kg over the past 1 week. Renal status stable. Blood sugars showing persistent elevation in the low to mid 200's. Will increase Lantus to 34 units at night. 04/11/17 Continue with levofloxacin and cefepime for antimicrobial coverage - ID recommending an approximate 10 day course. With increased temp, persistent leukocytosis, steroid and antibiotic use will start Diflucan 200mg IV daily. Continue mechanical ventilation for respiratory support. Pulm decreased Solu-Medrol to 40mg IV q 12 hours. Continue neb treatments and pulmonary toilet. Slowly able to wean down FIO2. Nutritional support with DH tube feeding. Continue Lasix 20 mg IV BID. Creatinine and BP stable. Potassium with increase to 5.4 this am. Blood sugars still with elevations - will continue current regimen, watching for decrease with decreased Solu-Medrol. 04/12/17 Continue with levofloxacin and cefepime for antimicrobial coverage - ID recommending an approximate 10 day course. Diflucan 200mg IV daily started 04/11/17. Continue mechanical ventilation for respiratory support - Solu-Medrol at 40mg IV q 12 hours. O2 needs increased today - likely mucous plugging. Creatinine with increase to 1.1. Edema much improved. Will decrease Lasix to 20mg daily to minimize overdiuresis. Blood sugars still with elevations - Increase Lantus to 38 units at HS. 04/13/17 Continue with levofloxacin and cefepime for antimicrobial coverage - ID recommending an approximate 10 day course. Diflucan 200mg IV daily started 04/11/17. Vancomycin started on 04/12/17 secondary to temp elevations. Continue mechanical ventilation for respiratory support. Increasing FIO2 - needing 100%. Sputum culture ordered by Dr Pineda. Solu-Medrol at 40mg IV q 12 hours. Continue neb treatments and pulmonary toilet. Nutritional support with DH tube feeding. Creatinine did decrease to 0.8. With increasing oxygen needs and increased intake as compared to output past 2 days will give 20mg IV Lasix. Blood sugars still with elevations - Increase Lantus to 42 units at HS. 04/14/17 Continue with levofloxacin and cefepime for antimicrobial coverage Diflucan 200mg IV daily started 04/11/17. Vancomycin started on 04/12/17 secondary to temp elevations. Continue mechanical ventilation for respiratory support. Sputum culture ordered 04/13 with results pending. Solu-Medrol at 40mg IV q 12 hours. Nutritional support with DH tube feeding. Potassium and sodium normal. Blood sugars still with elevations - Increase Lantus to 46 units at HS. Doppler legs pending - ? DVT as more pedal edema present. 04/15/17 Continue with levofloxacin and cefepime for antimicrobial coverage - ID recommending an approximate 10 day course. Diflucan 200mg IV daily started 04/11/17. Vancomycin started on 04/12/17 secondary to temp elevations. Continue mechanical ventilation for respiratory support. FIO2 needs decreasing - pulm weaning. Secretions decreasing. Sputum culture ordered 04/13 with normal respiratory jesus. Solu-Medrol at 40mg IV q 12 hours. Continue neb treatments and pulmonary toilet. Nutritional support with DH tube feeding. Potassium and sodium normal. Blood sugars still with elevations - Increase Lantus to 50 units at HS. Increase Lasix back to 20mg IV BID due to increasing edema to legs. Doppler legs from 04/14/17 showing no DVT - continue Lovenox 40mg SQ daily and SCD. 04/16/17 ID recommending stopping antibiotics and observing. Continue mechanical ventilation for respiratory support. FIO2 needs decreasing - pulm weaning. Secretions decreasing. Solu-Medrol at 40mg IV q 12 hours. Continue neb treatments and pulmonary toilet. Nutritional support with DH tube feeding. Potassium and sodium normal. Blood sugars still with elevations - Increase Lantus to 50 units at HS. Increase Lasix back to 20mg IV BID due to increasing edema to legs. Doppler legs from 04/14/17 showing no DVT - continue Lovenox 40mg SQ daily and SCD. Condition critical, showing improvement from the weekend. Continued CCU care needed secondary to respiratory failure and mechanical ventilation. 04/17/17 Observing off antibiotics. Continue mechanical ventilation for respiratory support. FIO2 needs decreasing - pulm weaning. Secretions decreasing. Solu-Medrol at 40mg IV daily. Continue neb treatments and pulmonary toilet. Nutritional support with DH tube feeding. Monitor potassium and sodium. Increasing TF to 65 ml/hr. Blood sugars still with elevations - Increase Lantus to 50 units at HS. Increase scheduled Novolog and sliding scale. Increase Lasix back to 20mg IV BID due to increasing edema to legs. 04/19 Observing off antibiotics. Recheck CBC. Steroids DC'd. Febrile today. Repeat cx. Continue mechanical ventilation for respiratory support. FIO2 needs decreasing - pulm holding off on weaning d/t fever. Solu-Medrol at 40mg IV daily. Continue neb treatments and pulmonary toilet. Nutritional support with DH tube feeding. Monitor potassium and sodium. TF goal is 65 ml/hr. Blood sugars may improve off solu-medrol. Monitor. Continuing Lantus, scheduled Novolog and sliding scale. Lasix at to 20mg IV BID due to edema to legs. Abdomen slightly distended. Bowels have slowed down on lower dose of Reglan. Will plan for daily suppository and continue MoM. 04/20 Vanco and cefepime restarted for fever, suspecting new pneumonia. Continue mechanical ventilation for respiratory support. FIO2 needs increasing, fever, pneumonia - pulm holding off on weaning. Solu-Medrol DC'd 04/20. Continue neb treatments and pulmonary toilet. Blood sugars trending down off solu-medrol. Monitor. Continuing Lantus, scheduled Novolog and sliding scale. Nutritional support with DH tube feeding. Monitor potassium and sodium. TF goal is 65 ml/hr. Lasix at to 20mg IV BID due to edema to legs. Abdomen slightly distended. Bowels have slowed down on lower dose of Reglan again, will increase to 10 mg iv q6 and monitor. Daily suppository and continue MoM. KUB does not show obstruction. Pharmacy out of nystatin s&s for thrush. Start Diflucan 04/21/17 Continue Vancomycin - meropenem started yesterday - suspecting new pneumonia. Continue mechanical ventilation for respiratory support. FIO2 needs with slight improvement today. Continue neb treatments and pulmonary toilet. DH not flushing - will attempt to replace. If not able to restart TF would hold routine insulin and decrease Lantus to 15 units this evening to decrease potential for hypoglycemia. TF goal is 65 ml/hr. Lasix at to 20mg IV BID due to edema to legs. Creatinine, potassium, and BP stable. Discussed with Pulm about family concern regarding potential dental abscess - worry respiratory status not stable enough at this time to risk CT scan. 04/22/17 Continue Vancomycin and meropenem - WBC with decrease, still temp elevations. Continue mechanical ventilation for respiratory support. FIO2 needs down to 40% . Continue neb treatments and pulmonary toilet. DH replaced last night. Continuing with TF. TF goal is 65 ml/hr. Will give additional 20mg IV Lasix today as intake greater than output. Creatinine and potassium normal. Dr Ibarra consulted for possible trach - plans on 04/24. 04/23/17 Continue meropenem - Vancomycin stopped by ID as no staph isolated. WBC with decrease to 12.7. Continue mechanical ventilation for respiratory support. FIO2 needs down to 40% . Trach planned for tomorrow. Continue neb treatments and pulmonary toilet. PRN Ibuprofen added to help temp elevation. TF to hold after midnight tonight. Will hold Lantus 50 units and Scheduled insulin to decrease risk for hypoglycemia. Lantus 10 units tonight x1. 04/24/17 OP day - Trach and feeding tube Continue meropenem for antimicrobial coverage Continue mechanical ventilation for respiratory support. Trach performed successfully. Continue neb treatments and pulmonary toilet. Feeding tube placed. Able to restart tube feeding this evening at 2100. Will restart Lantus at 40 units tonight. Can stop IVF initiated with surgery once TF started. Start TF at 60cc/hr.
[2017-04-24] MEDS ORDERED: INSULIN GLARGINE 100unit/ml INJECTION SQ ONE (21:00)
[2017-04-24] MEDS: IBUPROFEN 100 MG/5 ML ORAL LIQUID PO PRN (21:36)
[2017-04-25] MEDS: FentaNYL 1,000 MCG in NS 80 ML IV PRN ×2 (01:12→22:25)
[2017-04-25] MEDS: NS 1,000 ML IV SCH (01:32)
[2017-04-25] MEDS: METOCLOPRAMIDE 10mg/2ml INJECTION IVP SCH ×4 (03:06→21:48)
[2017-04-25] MEDS: MEROPENEM 1 GM in NS 100 ML IV SCH ×3 (03:06→20:08)
[2017-04-25] MEDS: SALINE FLUSH 10ml SYRINGE IV PRN (03:06)
[2017-04-25] MEDS: ALBUTEROL/IPRATROPIUM 2.5mg-0.5mg/3ml NEB AEROSOL SCH ×5 (04:20→20:21)
[2017-04-25] MEDS: INSULIN ASPART 100unit/ml INJECTION SQ PRN ×3 (05:43→18:44)
[2017-04-25] MEDS: NS IV PRN ×2 (06:03→14:51)
[2017-04-25] MEDS: DEXMEDETOMIDINE IV PRN ×2 (06:03→14:51)
[2017-04-25] MEDS: BUDESONIDE INH.SOLN 0.5mg/2ml NEB AEROSOL SCH ×2 (08:01→20:21)
--- NOTE | 2017-04-25 08:29 | XRay Report ---
Indication: f/u PROCEDURE: XR chest 1V: Encounter: Initial Comparison: April 24, 2017 Findings: Prior nasogastric, Dobbhoff and endotracheal tubes have been removed. New tracheostomy tube in place with the tip at the level of the thoracic inlet. Right IJ line remains in place. No significant overall change in appearance of the lungs. Small left effusion. No visible pneumothorax. Cardiomediastinal contours are stable. Impression: New tracheostomy. .
--- NOTE | 2017-04-25 09:34 | ID Progress Note ---
Subjective Date: 04/25/17 Subjective: He is still sedated. No family at bedside. He underwent trach/PEG yesterday. He had fever yesterday evening. WBC continues to improve. Exam Vital Signs: Temperature 100.0 F 04/25/17 04:15 Pulse Rate 75 04/25/17 08:02 Respiratory Rate 29 H 04/25/17 08:02 Blood Pressure 138/78 04/25/17 06:15 Pulse Oximetry 95 04/25/17 08:02 Height/Weight/BMI: Height 1.8 m Weight 139.2 kg Body Mass Index 51.2 - Constitutional Present: well nourished, well developed, obese, other (sedated) - Routine HEENT Exam Head: Present: normocephalic, atraumatic Eye: Present: EOMI, PERRL ENT: Present: mucous membranes moist Comments: Trachestomy in place - Routine Neck Exam Absent: swelling Comments: R IJ in place - Routine Respiratory Exam Present: patient mechanically ventilated (40% FiO2) Comments: coarse breath sounds bilaterally - Routine Cardiovascular Exam Present: RRR - Routine Abdominal Exam Present: soft, normoactive bowel sounds, non distended, non tender Comments: PEG tube in place - Routine Extremities Exam Present: edema (trace LE). Absent: cyanosis, clubbing - Routine Skin Exam Present: intact. Absent: rash - Routine Neurological Exam Present: altered mental status (sedated) - Routine Psychiatric Exam Present: unable to assess Results - Labs CBC & Chem 7: 04/25/17 05:18 04/25/17 05:18 Microbiology Results: Microbiology 04/19/17 13:37 Peripheral/Iv Start Blood Culture - Final No Growth After 5 Days 04/19/17 13:26 Port/Picc Gram Stain - Final 04/19/17 13:26 Port/Picc Blood Culture - Final Coag negative Staphylococcus 04/21/17 13:33 Blood Cryptococcal Antigen (Serum) - Final 04/19/17 15:45 Sputum, Suctioned Gram Stain - Final 04/19/17 15:45 Sputum, Suctioned Sputum Culture - Final Normal Respiratory Mayelin 04/13/17 14:50 Sputum, Suctioned Gram Stain - Final 04/13/17 14:50 Sputum, Suctioned Sputum Culture - Final Normal Respiratory Mayelin Present 04/09/17 10:00 Port/Picc Blood Culture - Final No Growth After 5 Days 04/09/17 09:24 Port/Picc Blood Culture - Final No Growth After 5 Days 04/06/17 10:37 Port/Picc Gram Stain - Final 04/06/17 10:37 Port/Picc Blood Culture - Final Corynebacterium species 04/06/17 11:03 Port/Picc Blood Culture - Final No Growth After 5 Days 04/07/17 08:43 Nasopahrynx Gram Stain - Final 04/07/17 08:43 Nasopahrynx Nasopharyngeal Culture - Final Normal Respiratory Mayelin 04/03/17 11:30 Sputum, Suctioned Gram Stain - Final 04/03/17 11:30 Sputum, Suctioned Sputum Culture - Final Normal Respiratory [place] 04/03/17 10:38 Urine Legionella Urinary Antigen - Final 04/03/17 10:38 Urine Streptococcus pneumoniae Antigen (M - Final Impression: Sepsis, secondary to pulmonary source, s/p 14 days of IV antibiotics completed . Now with worsening leukocytosis, fever, increased O2 requirements and new L-sided infiltrate on 04/20/17. Acute hypoxic respiratory failure Bilateral community-acquired pneumonia ARDS s/p steroids S/p CODE BLUE/bradycardia versus short lasting asystole on 04/06/2017 1/2 blood cultures positive for Corynebacterium species, contaminant DM II, newly diagnosed Morbid obesity Probable obstructive sleep apnea Tobaccoism Tinea corporis Copious thick nasal secretions from R nare, culture negative PCN allergy per records Elevated D-dimer Recommendation: Continue Merrem for at least 7 days. He fever yesterday could be due to his procedures, but will order repeat blood cultures. He is at risk for bacteremia with lines in place. Drug fever is a consideration as well, especially with his normal WBC count.
[2017-04-25] MEDS: ENOXAPARIN 40 MG/0.4 ML INJECTION SQ SCH (09:43)
[2017-04-25] MEDS: FUROSEMIDE 20 MG/2 ML INJECTION IVP SCH ×2 (09:44→21:48)
[2017-04-25] MEDS: PANTOPRAZOLE 40 MG INJECTION IVP SCH ×2 (09:44→21:48)
[2017-04-25] MEDS: FLUCONAZOLE 40 MG/ML PO SCH (09:44)
[2017-04-25] MEDS: BISACODYL 10 MG SUPPOSITORY RECTALLY SCH (09:45)
[2017-04-25] MEDS: ACETAMINOPHEN 650 MG SUPPOSITORY PR PRN (09:45)
[2017-04-25] MEDS: NYSTATIN 500,000 units/5 ml ORAL LIQUID PO SCH ×4 (09:46→22:00)
[2017-04-25] MEDS: CHLORHEXIDINE 0.12% ORAL RINSE PO SCH ×2 (09:48→22:00)
[2017-04-25] MEDS: TERFINAFINE 1% CREAM 12 G TUBE TOP SCH ×2 (09:49→21:50)
--- NOTE | 2017-04-25 10:26 | Pulmonology Progress Note ---
Subjective Principal diagnosis: respiratory failure Interval history: Pt is currently on the vent with a #8 Shiley trach, still on some sedation but has eyes open and following commands. He is still very weak. Exam Vital signs: Temperature 100.0 F 04/25/17 04:15 Pulse Rate 79 04/25/17 09:59 Respiratory Rate 29 H 04/25/17 09:59 Blood Pressure 138/78 04/25/17 06:15 Pulse Oximetry 92 04/25/17 09:59 - Constitutional no acute distress, morbidly obese - Routine HEENT Exam Head: Present: normocephalic, atraumatic Eye: Present: EOMI, PERRL ENT: Present: mucous membranes moist - Routine Neck Exam Present: supple, trachea midline Comments: #8 Shiley trach - Routine Respiratory Exam Present: patient mechanically ventilated - Routine Cardiovascular Exam Present: RRR, S1, S2, no murmur - Routine Abdominal Exam Present: firm Comments: hypoactive - Routine Extremities Exam Present: edema, non tender Comments: passive ROM, still very weak. - Routine Skin Exam Present: intact, dry - Routine Neurological Exam Present: alert follows commands - Routine Psychiatric Exam Present: unable to assess - Urinary Catheter Management Urethral Cath placed during this visit: yes Urethral indwelling: Yes Reason for continuing: Prolonged Immobilization Insertion date: 04/02/17 Insertion time: 22:20 Assessment and Plan - Assessment and Plan Acute Hypoxic hypercapnic Respiratory Failure CAP Pneumonia Sepsis/ARDS Likely COPD Likely GLADYS - will need OP PSG Elevated LFT's HyperKalemia Fluid overload Plan: Pt currently on vent F15 Vt 500, peep 6, 40%. S/P #8 Shiley trach and peg tube on 04/24/17. Still febrile but WBC normal now. CX's NTD and currently on merrem per ID, treat for 7 days. CXR still with some congestion and infiltrates on L but improving. Cont on BT's with pulmicort BID, a/a q4 and 3% q6, currently off steroids. Will continue to follow closely. CM working on referral to [facility] for further treatment and vent weaning. - Time Spent With Patient Total time spent is greater than 50% in coordination of care (as documented) at patient's floor/unit and/or counseling patient: less than 15 minutes
[2017-04-25] MEDS: SODIUM CL 3% INHAL.SOLN 15ml NEB AEROSOL SCH (12:36)
[2017-04-25] MEDS: IBUPROFEN 100 MG/5 ML ORAL LIQUID PO PRN ×2 (13:13→22:10)
--- NOTE | 2017-04-25 16:56 | Cardiology Progress Note ---
<Vidhya Galvez - Last Filed: 04/25/17 16:53> Subjective Principal diagnosis: bradycardia Interval history: Gianni is seen in follow up for bradycardia. He is awake and nonverbal due to tracheostomy, remains on the ventilator. Exam Vital signs: Temperature 102.7 F H 04/25/17 12:30 Pulse Rate 75 04/25/17 16:18 Respiratory Rate 31 H 04/25/17 16:18 Blood Pressure 126/69 04/25/17 12:45 Pulse Oximetry 94 04/25/17 16:18 - Constitutional no acute distress, morbidly obese - Routine HEENT Exam Head: Present: normocephalic ENT: Present: mucous membranes moist - Routine Neck Exam Absent: JVD, carotid bruit - Routine Respiratory Exam Present: CTA bilaterally - Routine Cardiovascular Exam Present: RRR, no murmur. Absent: JVD - Routine Abdominal Exam Present: soft, normoactive bowel sounds - Routine Extremities Exam Present: edema - Routine Skin Exam Present: intact, dry, warm - Additional findings Additional findings: Acetaminophen (Tylenol Liquid) 640 mg PO Q5H PRN PRN Reason: Discomfort Last Admin: 04/22/17 23:54 Dose: 640 mg Acetaminophen (Tylenol Supp) 650 mg AK Q5H PRN PRN Reason: Fever /Discomfort Last Admin: 04/25/17 09:45 Dose: 650 mg Albuterol/Ipratropium (Duoneb) 3 ml AEROSOL Q2HR PRN Last Admin: 04/19/17 18:50 Dose: 3 ml Albuterol/Ipratropium (Duoneb) 3 ml AEROSOL Q4HR [facility] Last Admin: 04/25/17 16:18 Dose: 3 ml Artificial Tears (Refresh Classic) 1 drop EACH EYE PRN PRN Last Admin: 04/23/17 09:50 Dose: 1 drop Benzocaine (Orajel) 1 applic MM QID PRN Last Admin: 04/24/17 13:09 Dose: 1 applic Bisacodyl (Dulcolax) 10 mg RECTALLY DAILY [facility] Stop: 04/26/17 09:01 Last Admin: 04/25/17 09:45 Dose: 10 mg Budesonide (Pulmicort Inhalation) 0.5 mg AEROSOL RTBID [facility] Last Admin: 04/25/17 08:01 Dose: 0.5 mg Chlorhexidine Gluconate (Peridex) 15 ml PO BID [facility] Last Admin: 04/25/17 09:48 Dose: 15 ml Dextrose (D50%W) 20 ml IVP PRN PRN PRN Reason: Hypoglycemia Enoxaparin Sodium (Lovenox) 40 mg SQ DAILY [facility] Last Admin: 04/25/17 09:43 Dose: 40 mg Fluconazole (Diflucan) 200 mg PO DAILY [facility] Last Admin: 04/25/17 09:44 Dose: 200 mg Furosemide (Lasix) 20 mg IVP Q12HR [facility] Last Admin: 04/25/17 09:44 Dose: 20 mg Fentanyl 1,000 mcg/ Sodium (Chloride) 100 mls @ 0 mls/hr IV .Q0M PRN; Protocol ; Per Protocol PRN Reason: Sedation Last Infusion: 04/25/17 07:00 Dose: 5 mls/hr Midazolam HCl 100 mg/ Sodium (Chloride) 100 mls @ 0 mls/hr IV .Q0M PRN; Protocol; Per Protocol PRN Reason: VENT SEDATION Last Titration: 04/25/17 07:00 Dose: 2.5 mls/hr Meropenem 1 gm/ Sodium (Chloride) 100 mls @ 200 mls/hr IV Q8H [facility] Last Admin: 04/25/17 13:04 Dose: 200 mls/hr Dexmedetomidine HCl 1,000 mcg/ (Sodium Chloride) 260 mls @ 0 mls/hr IV .Q0M PRN ; Per Protocol PRN Reason: Protocol Last Admin: 04/25/17 14:51 Dose: 0.86 mcg/kg/hr, 31 mls/hr Ibuprofen (Motrin Oral Liq) 600 mg PO Q8H PRN PRN Reason: Fever Last Admin: 04/25/17 13:13 Dose: 600 mg Insulin Aspart (Novolog) 3 - 12 unit SQ SS PRN; Protocol PRN Reason: Hyperglycemia Last Admin: 04/25/17 13:18 Dose: 5 unit Insulin Aspart (Novolog) 10 unit SQ 0001,0600,1200,1800 [facility] Last Admin: 04/24/17 01:56 Dose: Not Given Insulin Glargine (Lantus) 50 unit SQ HS [facility] Last Admin: 04/22/17 20:38 Dose: 50 unit Lorazepam (Ativan Inj) 2 mg IVP Q1H PRN PRN Reason: Anxiety/Restlessness Last Admin: 04/18/17 03:40 Dose: 2 mg Magnesium Hydroxide (Mom) 30 ml PO DAILY PRN PRN Reason: Constipation Last Admin: 04/19/17 08:41 Dose: 30 ml Menthol (Ricola Sf) 1 lozenge MM PRN PRN PRN Reason: Cough Metoclopramide HCl (Reglan) 10 mg IVP Q6HR [facility] Last Admin: 04/25/17 16:17 Dose: 10 mg Nystatin (Mycostatin) 5 ml PO QID [facility] Last Admin: 04/25/17 13:58 Dose: 5 ml Pantoprazole Sodium (Protonix Iv) 40 mg IVP BID [facility] Last Admin: 04/25/17 09:44 Dose: 40 mg Sodium Chloride (Iv Flush) 10 - 80 ml IV PRN PRN PRN Reason: Flushing Last Admin: 04/25/17 03:06 Dose: 60 ml Sodium Chloride (Sodium Chloride 3% Inhal) 3 ml AEROSOL Q12HR [facility] Last Admin: 04/25/17 12:36 Dose: 3 ml Sodium Chloride (Normal Saline) 500 ml IV PRN PRN Last Admin: 04/23/17 20:27 Dose: 500 ml Terbinafine HCl (Lamisil At) 1 applic TOP BID [facility] Last Admin: 04/25/17 09:49 Dose: 1 applic - Urinary Catheter Management Urethral Cath placed during this visit: yes Urethral indwelling: Yes Insertion date: 04/02/17 Insertion time: 22:20 Results 04/25/17 05:18 04/25/17 05:18 Cardiac Enzymes 04/25/17 Range/Units 05:18 AST 51 (17-59) U/L CBC 04/25/17 Range/Units 05:18 WBC 10.9 (4.5-11.0) T/MM3 RBC 3.84 L (4.50-5.90) M/MM3 Hgb 11.8 L (13.5-17.5) GM/DL Hct 38.3 L (41-53) % Plt Count 163 (130-400) T/MM3 Neut # (Auto) 7.4 (1.8-7.7) T/MM3 Lymph # (Auto) 2.4 (1-4.8) T/MM3 Mcdowell # (Auto) 0.5 (0-0.8) T/MM3 Eos # (Auto) 0.4 (0-0.5) T/MM3 Baso # (Auto) 0.1 (0-0.2) T/MM3 Comprehensive Metabolic Panel 04/25/17 Range/Units 05:18 Sodium 143 (134-144) MEQ/L Potassium 3.3 L (3.6-5) MEQ/L Chloride 107 (98-107) MEQ/L Carbon Dioxide 28 (22-30) MEQ/L BUN 21.0 H (9-20) MG/DL Creatinine 0.5 L (0.8-1.5) MG/DL Glucose 207 H (75-110) MG/DL Calcium 8.7 (8.4-10.2) MG/DL AST 51 (17-59) U/L ALT 116 H (21-72) U/L Alkaline Phosphatase 67 (38-126) U/L Total Protein 6.4 (6.3-8.2) G/DL Albumin 3.1 L (3.5-5.0) G/DL Intake and Output 04/25/17 04/25/17 04/25/17 06:59 14:59 22:59 Intake Total 1129.501 / 1129.501 851.95 / 851.95 65 65 Output Total 861 / 861 895 / 895 Balance 268.501 / 268.501 -43.05 / -43.05 Intake: IV 429.501 / 429.501 36.95 / 36.95 Dexmedetomidine 1,000 mcg In NS 260.000 / 260.000 29.45 / 29.45 250ml 250 ml @ 0.2 MCG/KG/HR 7 .47 mls/hr IV .Q24H PRN Rx#: [id number] FentaNYL 1,000 mcg In Ns 80 ml 43.584 / 43.584 5 / 5 @ Per Protocol IV .Q0M PRN Rx#: [id number] Meropenem 1 gm In Ns 100 ml @ 100 / 100 200 mls/hr IV Q8H [facility] Rx#: [id number] Midazolam 100 mg In RTU-Saline 25.917 / 25.917 2.5 / 2.5 0 ml @ Per Protocol IV .Q0M PRN Rx#:[id number] Tube Feeding 450 / 450 565 / 565 65 / 65 Left Upper Quadrant 450 / 450 565 / 565 65 / 65 Intake, Gastric Tube Irrigant 250 / 250 250 / 250 Amount Left Upper Quadrant 250 / 250 250 / 250 Output: Urine Amount (Catheter) 861 / 861 895 / 895 Other: Urine Appearance Cloudy Sediment Urine Color Light Lindsay Yellow Weight 304 lb 10.861 oz Patient Weight 04/26/17 06:59 Weight 304 lb 10.861 oz Assessment and Plan - Assessment and Plan (1) Bradycardia Status: Acute (2) Community acquired pneumonia Status: Acute (3) Acute respiratory failure with hypoxia Status: Acute - Assessment and Plan 04/06/17 Possibly related to anesthesia Or vagal with positioning for chest x-ray - NSR now, EKG obtained is WNL - Echo reviewed remotely by . He reports: EF 65%, Mild TR, Mild MR, PAP 42, trace PI, essentially the same as on 04/03/17. - Obtain TSH with reflex T4. K+ 4.6, Mag 2.6 today - Continue to monitor cardiac telemetry 04/08/17 No further bradycardia or pauses seen on telemetry - Will continue to monitor telemetry 04/09/2017 Bradycardia: On 04/06/2017 he went bradycardic. Likely due to vagal response with repositioning. 04/06/2017 ECG: NSR. Echo: EF 65%, mild MR/TR, PAP 42 K+, Mag and TSH wnl. Tele: SR - no further bradycardia or pauses seen on telemetry. Respiratory failure/ARDS/pneumonia On vent - FIO2 80%, sedated on versed and fentanyl. Receiving Lasix 20mg IV BID per pulm for large U/O. 04/10/2017 Bradycardia - no further bradycardia or pauses Respiratory failure/ARDS/pneumonia - On vent 50%. Sedated on versed and fentanyl - receiving lasix 20mg IV BID per pulm. Fluid overload - EF 65%. mild PHTN, PAP 42. requiring vent support. - 04/09 I/O: 4521/0010 (-4503). Wt down 23 kg since admit. k+ and Cr wnl. 04/09 CXR: atelectasis and effusion. . - cont lasix per pulm. 04/15/17 Remains intubated - Slight ST elevation noted on Telemetry - EKG now - Check troponin 04/16/16 Troponin negative - EKG show early repolarization - continue to monitor cardiac telemetry 04/17/16 Remains on the vent, 40% today. - Stable from cardiac standpoint we will continue to monitor 04/18/16 No changes to plan of care regarding cardiology - Will continue to monitor cardiac telemetry. 04/22/16 Remains on the vent, 40%, PEEP of 5 today. Telemetry and EKG remains stable, will continue to monitor 04/24/16 EGD with placement of PEG tube and creation of Tracheostomy today. Fio2 40%, peep 6 today Cont 04/25/16 Awake and looking around, nonverbal with trach. Tele remains stable. Hospital Course Summary Disclaimer: The visit summary below is not to be considered part of the above Progress Note. Hospital Course: Assessment Respiratory insufficiency with hypoxia Sepsis secondary to pneumonia Manifestations: Tachycardia, tachypnea, leukocytosis Community-acquired pneumonia Anasarca Morbid obesity-BMI 42.0 Hyperglycemia-POA Tinea corporis Tobacco dependence 04/02/17 Hospital admission Admit to inpatient status under the care of the hospitalist service, Dr. Lewis attending. It is expected that his stay will exceed 2 overnights given his sepsis secondary to pneumonia and overall condition. SCDs and Lovenox for DVT prophylaxis Urinalysis for laboratory completeness. Repeat CBC and BMP in am to follow leukocytosis, renal function and electrolytes. Schedule echocardiogram to evaluate cardiac structure and function given his anasarca and dyspnea. Oxygen, DuoNeb treatments, Acapella, and guaifenesin for respiratory symptoms. Continue Rocephin and Zithromax initiated and the emergency room. Blood cultures were drawn prior to antibiotic initiation. RT consult tobacco cessation. Terbinafine topically for his tinea corporis Patient wishes to be a full code. Case discussed with Dr. Lewis. Case management will need to assist in finding patient a PCP. 04/04/17 12:03 Plan The patient continues to require mechanical ventilation and is on 100% FiO2 regarding his ARDS and pneumonia. Continue ventilator support - Dr. Pineda is following. His help is greatly appreciated. Continue Levaquin initiated 04/03/2017 and Rocephin initiated 04/02/2017 Continue Solu-Medrol Discussed with Dr. Pineda, will change Lovenox to prophylactic dose. Venous Doppler of the legs were negative for DVT. No signs of right heart strain on echocardiogram. Advance tube feedings Nutren luminary 1.5 to goal of 70 ML's per hour. Start free water 400 ML's every 8 hours. DC IV fluids Vishal blood pressure off of IV fluids. May need to initiate antihypertensive Start Lantus 10 units subcutaneous daily. Increase to medium dose sliding scale insulin. Continue Lasix 40 mg IV every 12. Patient is diuresing well. Check CBC and renal panel tomorrow. Chest x-ray tomorrow. Assess with Dr. Pineda, the patient's significant other, and the patient's nurse. 04/05/17 09:31 Plan The patient continues to require mechanical ventilation and is now on 95% FiO2 regarding his ARDS and pneumonia. Continue ventilator support per Dr. Pineda Continue Levaquin initiated 04/03/2017 and Rocephin initiated 04/02/2017. Continue Solu-Medrol Regarding hyperkalemia, will try to change to feeding to a renal tube feeds. Check ABG. (7.32/79/103 on 95% FiO2) Recheck basic metabolic profile later today. May need to increase fluids followed by diuresis for hyperkalemia Increase Lantus to 20 units subcutaneous daily for hyperglycemia. Increase sliding scale insulin to high dose Start Reglan and Dulcolax suppositories to stimulate GI tract. Decrease tube feed rate to 50 ML's for now. Greater than 40 minutes critical care time. 04/07/2017 Plan The patient continues to require mechanical ventilation and FiO2 100% regarding his ARDS and pneumonia. The patient has tolerated discontinuation of propofol and initiation of Versed. The patient is tolerating his tube feedings. Will advance as tolerated. Will increase free water to 200 ML's every 4 hours and decrease Lasix to 20 mg IV every 12 regarding his elated sodium. Continue to monitor blood pressure closely. Continue Levaquin initiated 04/03/2017 and Rocephin initiated 04/02/2017. Continue Solu-Medrol Regarding hyperkalemia-is resolved. Continue renal tube feeds Continue Reglan and Dulcolax suppositories to stimulate GI tract. Greater than 45 minutes of critical care time spent seeing and evaluating the patient. The patient's brother was updated. 04/08/17 09:49 Plan Overall, the patient is stable. He is diuresing well. Weight is down approximately 22 kg over the past 1 week. He has been on the ventilator for one week now. FiO2 turned down to 95% this morning. Consulted Dr. Johnson regarding positive blood culture and antibiotic recommendations The patient continues to require mechanical ventilation regarding his ARDS and pneumonia. FiO2 down to 95% this morning The patient is tolerating his tube feedings. Will advance as tolerated to goal. Will increase free water to 250 ML's every 4 hours. Continue Lasix 20 mg IV every 12. Continue to monitor blood pressure closely. Continue Levaquin initiated 04/03/2017 and Rocephin initiated 04/02/2017. Continue Solu-Medrol and breathing treatments Regarding hyperkalemia- Continue renal tube feeds Continue Reglan and Dulcolax suppositories to stimulate GI tract. Regarding possible mild upper GI bleed, will Gastric occult NG drainage. Hold Lovenox for now. Greater than 45 minutes of critical care time spent seeing and evaluating the patient. 04/09/17 Overall, the patient is improving. FiO2 is now down to 70%. The patient appears to be nearly euvolemic at this time. We'll continue Lasix. Weight is down approximately 22 kg over the past [address] Johnson recommends approximately 10 days of broad-spectrum antibiotics for his pneumonia. She recommended discontinuation of vancomycin today with corynebacterium found in one of 2 blood cultures on April 06 most likely being a contaminant. Currently at goal rate on tube feedings. He is on a renal formulation because of hyperkalemia. May need to increase free water further if sodium does not improving. Continue Levaquin initiated 04/03/2017 and Rocephin initiated 04/02/2017. Rocephin discontinued on 04/06/2017 and cefepime started. Vancomycin started and discontinued on 04/09/2017 Continue Solu-Medrol and breathing treatments Add MiraLAX for constipation Continue Lovenox for DVT prophylaxis (gastric occult from NG drainage was negative) 04/10/17 Debbie Continue with levofloxacin and cefepime for antimicrobial coverage - ID recommending an approximate 10 day course. Will continue with Solu-Medrol at 40mg IV q 8 hours -started on 03/26/17. Potentially could start to decrease. Continue neb treatments and pulmonary toilet. Nutritional support with DH tube feeding. Potassium normal. LFT with gradual increase-potential fatty liver secondary to continuous TF. Continue Lasix. Weight is down approximately 22 kg over the past 1 week. Renal status stable. Blood sugars showing persistent elevation in the low to mid 200's. Will increase Lantus to 34 units at night. 04/11/17 Continue with levofloxacin and cefepime for antimicrobial coverage - ID recommending an approximate 10 day course. With increased temp, persistent leukocytosis, steroid and antibiotic use will start Diflucan 200mg IV daily. Continue mechanical ventilation for respiratory support. Pulm decreased Solu-Medrol to 40mg IV q 12 hours. Continue neb treatments and pulmonary toilet. Slowly able to wean down FIO2. Nutritional support with DH tube feeding. Continue Lasix 20 mg IV BID. Creatinine and BP stable. Potassium with increase to 5.4 this am. Blood sugars still with elevations - will continue current regimen, watching for decrease with decreased Solu-Medrol. 04/12/17 Continue with levofloxacin and cefepime for antimicrobial coverage - ID recommending an approximate 10 day course. Diflucan 200mg IV daily started 04/11/17. Continue mechanical ventilation for respiratory support - Solu-Medrol at 40mg IV q 12 hours. O2 needs increased today - likely mucous plugging. Creatinine with increase to 1.1. Edema much improved. Will decrease Lasix to 20mg daily to minimize overdiuresis. Blood sugars still with elevations - Increase Lantus to 38 units at HS. 04/13/17 Continue with levofloxacin and cefepime for antimicrobial coverage - ID recommending an approximate 10 day course. Diflucan 200mg IV daily started 04/11/17. Vancomycin started on 04/12/17 secondary to temp elevations. Continue mechanical ventilation for respiratory support. Increasing FIO2 - needing 100%. Sputum culture ordered by Dr Pineda. Solu-Medrol at 40mg IV q 12 hours. Continue neb treatments and pulmonary toilet. Nutritional support with DH tube feeding. Creatinine did decrease to 0.8. With increasing oxygen needs and increased intake as compared to output past 2 days will give 20mg IV Lasix. Blood sugars still with elevations - Increase Lantus to 42 units at HS. 04/14/17 Continue with levofloxacin and cefepime for antimicrobial coverage Diflucan 200mg IV daily started 04/11/17. Vancomycin started on 04/12/17 secondary to temp elevations. Continue mechanical ventilation for respiratory support. Sputum culture ordered 04/13 with results pending. Solu-Medrol at 40mg IV q 12 hours. Nutritional support with DH tube feeding. Potassium and sodium normal. Blood sugars still with elevations - Increase Lantus to 46 units at HS. Doppler legs pending - ? DVT as more pedal edema present. 04/15/17 Continue with levofloxacin and cefepime for antimicrobial coverage - ID recommending an approximate 10 day course. Diflucan 200mg IV daily started 04/11/17. Vancomycin started on 04/12/17 secondary to temp elevations. Continue mechanical ventilation for respiratory support. FIO2 needs decreasing - pulm weaning. Secretions decreasing. Sputum culture ordered 04/13 with normal respiratory jesus. Solu-Medrol at 40mg IV q 12 hours. Continue neb treatments and pulmonary toilet. Nutritional support with DH tube feeding. Potassium and sodium normal. Blood sugars still with elevations - Increase Lantus to 50 units at HS. Increase Lasix back to 20mg IV BID due to increasing edema to legs. Doppler legs from 04/14/17 showing no DVT - continue Lovenox 40mg SQ daily and SCD. 04/16/17 ID recommending stopping antibiotics and observing. Continue mechanical ventilation for respiratory support. FIO2 needs decreasing - pulm weaning. Secretions decreasing. Solu-Medrol at 40mg IV q 12 hours. Continue neb treatments and pulmonary toilet. Nutritional support with DH tube feeding. Potassium and sodium normal. Blood sugars still with elevations - Increase Lantus to 50 units at HS. Increase Lasix back to 20mg IV BID due to increasing edema to legs. Doppler legs from 04/14/17 showing no DVT - continue Lovenox 40mg SQ daily and SCD. Condition critical, showing improvement from the weekend. Continued CCU care needed secondary to respiratory failure and mechanical ventilation. 04/17/17 Observing off antibiotics. Continue mechanical ventilation for respiratory support. FIO2 needs decreasing - pulm weaning. Secretions decreasing. Solu-Medrol at 40mg IV daily. Continue neb treatments and pulmonary toilet. Nutritional support with DH tube feeding. Monitor potassium and sodium. Increasing TF to 65 ml/hr. Blood sugars still with elevations - Increase Lantus to 50 units at HS. Increase scheduled Novolog and sliding scale. Increase Lasix back to 20mg IV BID due to increasing edema to legs. 04/19 Observing off antibiotics. Recheck CBC. Steroids DC'd. Febrile today. Repeat cx. Continue mechanical ventilation for respiratory support. FIO2 needs decreasing - pulm holding off on weaning d/t fever. Solu-Medrol at 40mg IV daily. Continue neb treatments and pulmonary toilet. Nutritional support with DH tube feeding. Monitor potassium and sodium. TF goal is 65 ml/hr. Blood sugars may improve off solu-medrol. Monitor. Continuing Lantus, scheduled Novolog and sliding scale. Lasix at to 20mg IV BID due to edema to legs. Abdomen slightly distended. Bowels have slowed down on lower dose of Reglan. Will plan for daily suppository and continue MoM. 04/20 Vanco and cefepime restarted for fever, suspecting new pneumonia. Continue mechanical ventilation for respiratory support. FIO2 needs increasing, fever, pneumonia - pulm holding off on weaning. Solu-Medrol DC'd 04/20. Continue neb treatments and pulmonary toilet. Blood sugars trending down off solu-medrol. Monitor. Continuing Lantus, scheduled Novolog and sliding scale. Nutritional support with DH tube feeding. Monitor potassium and sodium. TF goal is 65 ml/hr. Lasix at to 20mg IV BID due to edema to legs. Abdomen slightly distended. Bowels have slowed down on lower dose of Reglan again, will increase to 10 mg iv q6 and monitor. Daily suppository and continue MoM. KUB does not show obstruction. Pharmacy out of nystatin s&s for thrush. Start Diflucan 04/21/17 Continue Vancomycin and cefepime - suspecting new pneumonia. Continue mechanical ventilation for respiratory support. FIO2 needs with slight improvement today. Continue neb treatments and pulmonary toilet. DH not flushing - will attempt to replace. If not able to restart TF would hold routine insulin and decrease Lantus to 15 units this evening to decrease potential for hypoglycemia. TF goal is 65 ml/hr. Lasix at to 20mg IV BID due to edema to legs. Creatinine, potassium, and BP stable. Discussed with Pulm about family concern regarding potential dental abscess - worry respiratory status not stable enough at this time to risk CT scan. 04/22/17 Continue Vancomycin and cefepime - WBC with decrease, still temp elevations. Continue mechanical ventilation for respiratory support. FIO2 needs down to 40% . Continue neb treatments and pulmonary toilet. DH replaced last night. Continuing with TF. TF goal is 65 ml/hr. Will give additional 20mg IV Lasix today as intake greater than output. Creatinine and potassium normal. Dr Ibarra consulted for possible trach - plans on 04/24. 04/23/17 Continue cefepime - Vancomycin stopped by ID as no staph isolated. WBC with decrease to 12.7. Continue mechanical ventilation for respiratory support. FIO2 needs down to 40% . Trach planned for tomorrow. Continue neb treatments and pulmonary toilet. PRN Ibuprofen added to help temp elevation. TF to hold after midnight tonight. Will hold Lantus 50 units and Scheduled insulin to decrease risk for hypoglycemia. Lantus 10 units tonight x1. <Ebenezer Mauricio - Last Filed: 04/30/17 11:51> Exam Vital signs: Temperature 99.4 F 04/28/17 12:00 Pulse Rate 100 04/28/17 16:30 Respiratory Rate 25 H 04/28/17 16:30 Blood Pressure 125/72 04/28/17 16:00 Pulse Oximetry 93 04/28/17 16:30 - Urinary Catheter Management Urethral Cath placed during this visit: no Results 04/28/17 04:54 04/28/17 04:54 Assessment and Plan - Assessment and Plan (1) Community acquired pneumonia Status: Acute (2) Acute respiratory failure with hypoxia Status: Acute (3) Bradycardia Status: Acute - Assessment and Plan 04/06/17 Possibly related to anesthesia Or vagal with positioning for chest x-ray - NSR now, EKG obtained is WNL - Echo reviewed remotely by . He reports: EF 65%, Mild TR, Mild MR, PAP 42, trace PI, essentially the same as on 04/03/17. - Obtain TSH with reflex T4. K+ 4.6, Mag 2.6 today - Continue to monitor cardiac telemetry 04/08/17 No further bradycardia or pauses seen on telemetry - Will continue to monitor telemetry 04/09/2017 Bradycardia: On 04/06/2017 he went bradycardic. Likely due to vagal response with repositioning. 04/06/2017 ECG: NSR. Echo: EF 65%, mild MR/TR, PAP 42 K+, Mag and TSH wnl. Tele: SR - no further bradycardia or pauses seen on telemetry. Respiratory failure/ARDS/pneumonia On vent - FIO2 80%, sedated on versed and fentanyl. Receiving Lasix 20mg IV BID per pulm for large U/O. 04/10/2017 Bradycardia - no further bradycardia or pauses Respiratory failure/ARDS/pneumonia - On vent 50%. Sedated on versed and fentanyl - receiving lasix 20mg IV BID per pulm. Fluid overload - EF 65%. mild PHTN, PAP 42. requiring vent support. - 04/09 I/O: 2391/4922 (-6523). Wt down 23 kg since admit. k+ and Cr wnl. 04/09 CXR: atelectasis and effusion. . - cont lasix per pulm. 04/15/17 Remains intubated - Slight ST elevation noted on Telemetry - EKG now - Check troponin 04/16/17 Troponin negative - EKG show early repolarization - continue to monitor cardiac telemetry 04/17/17 Remains on the vent, 40% today. - Stable from cardiac standpoint we will continue to monitor 04/18/17 No changes to plan of care regarding cardiology - Will continue to monitor cardiac telemetry. 04/22/17 Remains on the vent, 40%, PEEP of 5 today. Telemetry and EKG remains stable, will continue to monitor 04/24/17 EGD with placement of PEG tube and creation of Tracheostomy today. Fio2 40%, peep 6 today Cont 04/25/17 Awake and looking around, nonverbal with trach. Tele remains stable. - Attestation Attestation Narrative: 04/30/17 11:51 Recommendation After examining the patient I agree with the above assessment. I am involved in the formulation of the patient's plan of care. Hospital Course Summary Disclaimer: The visit summary below is not to be considered part of the above Progress Note.
--- NOTE | 2017-04-25 17:36 | Progress Note ---
- Date 04/25/17 Subjective: F/U: Acute respiratory failure, ARDS, Pneumonia Tolerating vent. Appears sedated, but does turn head and open eyes to verbal stimuli. Less residuals noted from TF today. Potassium with decrease-likely secondary to holding TF yesterday and continued Lasix. WBC normalized, but still with temp elevation. Objective Vital signs: Temperature 102.7 F H 04/25/17 12:30 Pulse Rate 75 04/25/17 16:18 Respiratory Rate 31 H 04/25/17 16:18 Blood Pressure 126/69 04/25/17 12:45 Pulse Oximetry 94 04/25/17 16:18 Rhythm: Normal Sinus Rhythm Height/Weight/BMI: Height 1.8 m Weight 138.2 kg Body Mass Index 51.2 - Constitutional Present: well nourished, well developed, morbidly obese - Routine HEENT Exam Head: Present: normocephalic, atraumatic Eye: Present: EOMI ENT: Present: mucous membranes moist - Routine Respiratory Exam Present: patient mechanically ventilated. Absent: respiratory distress - Routine Cardiovascular Exam Present: RRR, no murmur - Routine Abdominal Exam Present: soft, distended. Absent: normoactive bowel sounds (decreased ) - Routine Exam Comments: Walker present - Routine Extremities Exam Present: edema (Pedal bilaterally ), pulses intact. Absent: cyanosis, clubbing Comments: SCD in place - Routine Musculoskeletal Exam Musculoskeletal: Present: no clubbing or cyanosis - Routine Skin Exam Present: warm - Routine Neurological Exam Sedated - Routine Psychiatric Exam Comments: Sedated Results - Labs CBC & Chem 7: 04/25/17 05:18 04/25/17 05:18 Microbiology Results: Microbiology 04/25/17 11:07 Peripheral/Iv Start Blood Culture - Preliminary Culture Initiated - Results Pending 04/25/17 11:00 Peripheral/Iv Start Blood Culture - Preliminary Culture Initiated - Results Pending 04/19/17 13:37 Peripheral/Iv Start Blood Culture - Final No Growth After 5 Days 04/19/17 13:26 Port/Picc Gram Stain - Final 04/19/17 13:26 Port/Picc Blood Culture - Final Coag negative Staphylococcus 04/21/17 13:33 Blood Cryptococcal Antigen (Serum) - Final 04/19/17 15:45 Sputum, Suctioned Gram Stain - Final 01/06/18 15:45 Sputum, Suctioned Sputum Culture - Final Normal Respiratory Jesus 04/13/17 14:50 Sputum, Suctioned Gram Stain - Final 04/13/17 14:50 Sputum, Suctioned Sputum Culture - Final Normal Respiratory Jesus Present 04/09/17 10:00 Port/Picc Blood Culture - Final No Growth After 5 Days 04/09/17 09:24 Port/Picc Blood Culture - Final No Growth After 5 Days 04/06/17 10:37 Port/Picc Gram Stain - Final 04/06/17 10:37 Port/Picc Blood Culture - Final Corynebacterium species 04/06/17 11:03 Port/Picc Blood Culture - Final No Growth After 5 Days 04/07/17 08:43 Nasopahrynx Gram Stain - Final 04/07/17 08:43 Nasopahrynx Nasopharyngeal Culture - Final Normal Respiratory Jesus 04/03/17 11:30 Sputum, Suctioned Gram Stain - Final 04/03/17 11:30 Sputum, Suctioned Sputum Culture - Final Normal Respiratory Jesus 04/03/17 10:38 Urine Legionella Urinary Antigen - Final 04/03/17 10:38 Urine Streptococcus pneumoniae Antigen (M - Final Assessment and Plan (1) Community acquired pneumonia Current visit: No Status: Acute Assessment and Plan: Assessment Acute hypoxic and hypercarbic respiratory failure-requiring mechanical ventilation. Intubated on 04/02/2017. Versed and fentanyl for sedation ARDS Community - acquired pneumonia-severe, requiring intubation. Levaquin initiated 04/03/2017 and Rocephin initiated 04/02/2017. Changed Rocephin to cefepime on . Sepsis secondary to pneumonia on admission Manifestations: Tachycardia, tachypnea, leukocytosis. Lactate normal on admission CODE BLUE/bradycardia versus short lasting asystole on 04/06/2017-patient received chest compressions 3 - EKG and troponin post event were normal Elevated d-dimer 555 - Lovenox therapeutic dose initiated 04/06/2017. Blood culture one of 2 on 04/06/2027 positive for corynebacterium -discussed with Dr. Johnson. This is most likely contaminant. Anasarca - improving; significant decrease of fluid since admit Echocardiogram revealed normal EF, left ventricular hypertrophy, PA pressure 41 with mild pulmonary hypertension (echo 04/06/2017 unchanged on recheck)-BNP has been normal. Diabetes Mellitus Type 2 - A1C 7.1 on admission (new diagnosis)-on Lantus, scheduled NovoLog and sliding scale insulin Possible COPD Probable obstructive sleep apnea Chronic back pain with high-dose ibuprofen and Tylenol use prior to admission Tinea corporis/ringworm? Tobacco dependence Hyperkalemia with potassium up to 5.5 of undetermined etiology (Not POA). Possible sinusitis right nears with copious thick nasal secretions - C/S showing normal jesus Mild hypernatremia (Not POA) Morbid obesity-BMI 42.0 Plan Continue meropenem for antimicrobial coverage. WBC has normalized, temp elevations present. ID recommending at least 7 days of Meropenem. Continue mechanical ventilation for respiratory support. Continue neb treatments and pulmonary toilet. Tube Feeding restarted. Increase Lantus to 50 units nightly. Will give 20mEq KCL per tube today as potassium low-likely secondary to holding TF yesterday. CM checking into [facility] hospitalization - suspect slow recovery. Recheck CMP in am secondary to medication use. Will repeat CBC in am due to leukocytosis. Case discussed with CCU nursing and family. Time spent with patient care 25 minutes. DVT Prophylaxis: SCD's, Lovenox Resuscitation Status: Full Code - Time spent with patient Time with patient PN: 25 minutes - Physician Narrative Physician: Wally Lewis MD Narrative: Date: 04/25/17 Time: [id number] Hospital Course Summary Disclaimer: The visit summary below is not to be considered part of the above Progress Note. Hospital Course: Assessment Respiratory insufficiency with hypoxia Sepsis secondary to pneumonia Manifestations: Tachycardia, tachypnea, leukocytosis Community-acquired pneumonia Anasarca Morbid obesity-BMI 42.0 Hyperglycemia-POA Tinea corporis Tobacco dependence 04/02/17 Hospital admission Admit to inpatient status under the care of the hospitalist service, Dr. Lewis attending. It is expected that his stay will exceed 2 overnights given his sepsis secondary to pneumonia and overall condition. SCDs and Lovenox for DVT prophylaxis Urinalysis for laboratory completeness. Repeat CBC and BMP in am to follow leukocytosis, renal function and electrolytes. Schedule echocardiogram to evaluate cardiac structure and function given his anasarca and dyspnea. Oxygen, DuoNeb treatments, Acapella, and guaifenesin for respiratory symptoms. Continue Rocephin and Zithromax initiated and the emergency room. Blood cultures were drawn prior to antibiotic initiation. RT consult tobacco cessation. Terbinafine topically for his tinea corporis Patient wishes to be a full code. Case discussed with Dr. Lewis. Case management will need to assist in finding patient a PCP. 04/04/17 12:03 Plan The patient continues to require mechanical ventilation and is on 100% FiO2 regarding his ARDS and pneumonia. Continue ventilator support - Dr. Pineda is following. His help is greatly appreciated. Continue Levaquin initiated 04/03/2017 and Rocephin initiated 04/02/2017 Continue Solu-Medrol Discussed with Dr. Pineda, will change Lovenox to prophylactic dose. Venous Doppler of the legs were negative for DVT. No signs of right heart strain on echocardiogram. Advance tube feedings Nutren luminary 1.5 to goal of 70 ML's per hour. Start free water 400 ML's every 8 hours. DC IV fluids Vishal blood pressure off of IV fluids. May need to initiate antihypertensive Start Lantus 10 units subcutaneous daily. Increase to medium dose sliding scale insulin. Continue Lasix 40 mg IV every 12. Patient is diuresing well. Check CBC and renal panel tomorrow. Chest x-ray tomorrow. Assess with Dr. Pineda, the patient's significant other, and the patient's nurse. 04/05/17 09:31 Plan The patient continues to require mechanical ventilation and is now on 95% FiO2 regarding his ARDS and pneumonia. Continue ventilator support per Dr. Pineda Continue Levaquin initiated 04/03/2017 and Rocephin initiated 04/02/2017. Continue Solu-Medrol Regarding hyperkalemia, will try to change to feeding to a renal tube feeds. Check ABG. (7.32/79/103 on 95% FiO2) Recheck basic metabolic profile later today. May need to increase fluids followed by diuresis for hyperkalemia Increase Lantus to 20 units subcutaneous daily for hyperglycemia. Increase sliding scale insulin to high dose Start Reglan and Dulcolax suppositories to stimulate GI tract. Decrease tube feed rate to 50 ML's for now. Greater than 40 minutes critical care time. 04/07/2017 Plan The patient continues to require mechanical ventilation and FiO2 100% regarding his ARDS and pneumonia. The patient has tolerated discontinuation of propofol and initiation of Versed. The patient is tolerating his tube feedings. Will advance as tolerated. Will increase free water to 200 ML's every 4 hours and decrease Lasix to 20 mg IV every 12 regarding his elated sodium. Continue to monitor blood pressure closely. Continue Levaquin initiated 04/03/2017 and Rocephin initiated 04/02/2017. Continue Solu-Medrol Regarding hyperkalemia-is resolved. Continue renal tube feeds Continue Reglan and Dulcolax suppositories to stimulate GI tract. Greater than 45 minutes of critical care time spent seeing and evaluating the patient. The patient's brother was updated. 04/08/17 09:49 Plan Overall, the patient is stable. He is diuresing well. Weight is down approximately 22 kg over the past 1 week. He has been on the ventilator for one week now. FiO2 turned down to 95% this morning. Consulted Dr. Johnson regarding positive blood culture and antibiotic recommendations The patient continues to require mechanical ventilation regarding his ARDS and pneumonia. FiO2 down to 95% this morning The patient is tolerating his tube feedings. Will advance as tolerated to goal. Will increase free water to 250 ML's every 4 hours. Continue Lasix 20 mg IV every 12. Continue to monitor blood pressure closely. Continue Levaquin initiated 04/03/2017 and Rocephin initiated 04/02/2017. Continue Solu-Medrol and breathing treatments Regarding hyperkalemia- Continue renal tube feeds Continue Reglan and Dulcolax suppositories to stimulate GI tract. Regarding possible mild upper GI bleed, will Gastric occult NG drainage. Hold Lovenox for now. Greater than 45 minutes of critical care time spent seeing and evaluating the patient. 04/09/17 Overall, the patient is improving. FiO2 is now down to 70%. The patient appears to be nearly euvolemic at this time. We'll continue Lasix. Weight is down approximately 22 kg over the past [address] Johnson recommends approximately 10 days of broad-spectrum antibiotics for his pneumonia. She recommended discontinuation of vancomycin today with corynebacterium found in one of 2 blood cultures on April 06 most likely being a contaminant. Currently at goal rate on tube feedings. He is on a renal formulation because of hyperkalemia. May need to increase free water further if sodium does not improving. Continue Levaquin initiated 04/03/2017 and Rocephin initiated 04/02/2017. Rocephin discontinued on 04/06/2017 and cefepime started. Vancomycin started and discontinued on 04/09/2017 Continue Solu-Medrol and breathing treatments Add MiraLAX for constipation Continue Lovenox for DVT prophylaxis (gastric occult from NG drainage was negative) 04/10/17 Debbie Continue with levofloxacin and cefepime for antimicrobial coverage - ID recommending an approximate 10 day course. Will continue with Solu-Medrol at 40mg IV q 8 hours -started on 03/26/17. Potentially could start to decrease. Continue neb treatments and pulmonary toilet. Nutritional support with DH tube feeding. Potassium normal. LFT with gradual increase-potential fatty liver secondary to continuous TF. Continue Lasix. Weight is down approximately 22 kg over the past 1 week. Renal status stable. Blood sugars showing persistent elevation in the low to mid 200's. Will increase Lantus to 34 units at night. 04/11/17 Continue with levofloxacin and cefepime for antimicrobial coverage - ID recommending an approximate 10 day course. With increased temp, persistent leukocytosis, steroid and antibiotic use will start Diflucan 200mg IV daily. Continue mechanical ventilation for respiratory support. Pulm decreased Solu-Medrol to 40mg IV q 12 hours. Continue neb treatments and pulmonary toilet. Slowly able to wean down FIO2. Nutritional support with DH tube feeding. Continue Lasix 20 mg IV BID. Creatinine and BP stable. Potassium with increase to 5.4 this am. Blood sugars still with elevations - will continue current regimen, watching for decrease with decreased Solu-Medrol. 04/12/17 Continue with levofloxacin and cefepime for antimicrobial coverage - ID recommending an approximate 10 day course. Diflucan 200mg IV daily started 04/11/17. Continue mechanical ventilation for respiratory support - Solu-Medrol at 40mg IV q 12 hours. O2 needs increased today - likely mucous plugging. Creatinine with increase to 1.1. Edema much improved. Will decrease Lasix to 20mg daily to minimize overdiuresis. Blood sugars still with elevations - Increase Lantus to 38 units at HS. 04/13/17 Continue with levofloxacin and cefepime for antimicrobial coverage - ID recommending an approximate 10 day course. Diflucan 200mg IV daily started 04/11/17. Vancomycin started on 04/12/17 secondary to temp elevations. Continue mechanical ventilation for respiratory support. Increasing FIO2 - needing 100%. Sputum culture ordered by Dr Pineda. Solu-Medrol at 40mg IV q 12 hours. Continue neb treatments and pulmonary toilet. Nutritional support with DH tube feeding. Creatinine did decrease to 0.8. With increasing oxygen needs and increased intake as compared to output past 2 days will give 20mg IV Lasix. Blood sugars still with elevations - Increase Lantus to 42 units at HS. 04/14/17 Continue with levofloxacin and cefepime for antimicrobial coverage Diflucan 200mg IV daily started 04/11/17. Vancomycin started on 04/12/17 secondary to temp elevations. Continue mechanical ventilation for respiratory support. Sputum culture ordered 04/13 with results pending. Solu-Medrol at 40mg IV q 12 hours. Nutritional support with DH tube feeding. Potassium and sodium normal. Blood sugars still with elevations - Increase Lantus to 46 units at HS. Doppler legs pending - ? DVT as more pedal edema present. 04/15/17 Continue with levofloxacin and cefepime for antimicrobial coverage - ID recommending an approximate 10 day course. Diflucan 200mg IV daily started 04/11/17. Vancomycin started on 04/12/17 secondary to temp elevations. Continue mechanical ventilation for respiratory support. FIO2 needs decreasing - pulm weaning. Secretions decreasing. Sputum culture ordered 04/13 with normal respiratory jesus. Solu-Medrol at 40mg IV q 12 hours. Continue neb treatments and pulmonary toilet. Nutritional support with DH tube feeding. Potassium and sodium normal. Blood sugars still with elevations - Increase Lantus to 50 units at HS. Increase Lasix back to 20mg IV BID due to increasing edema to legs. Doppler legs from 04/14/17 showing no DVT - continue Lovenox 40mg SQ daily and SCD. 04/16/17 ID recommending stopping antibiotics and observing. Continue mechanical ventilation for respiratory support. FIO2 needs decreasing - pulm weaning. Secretions decreasing. Solu-Medrol at 40mg IV q 12 hours. Continue neb treatments and pulmonary toilet. Nutritional support with DH tube feeding. Potassium and sodium normal. Blood sugars still with elevations - Increase Lantus to 50 units at HS. Increase Lasix back to 20mg IV BID due to increasing edema to legs. Doppler legs from 04/14/17 showing no DVT - continue Lovenox 40mg SQ daily and SCD. Condition critical, showing improvement from the weekend. Continued CCU care needed secondary to respiratory failure and mechanical ventilation. 04/17/17 Observing off antibiotics. Continue mechanical ventilation for respiratory support. FIO2 needs decreasing - pulm weaning. Secretions decreasing. Solu-Medrol at 40mg IV daily. Continue neb treatments and pulmonary toilet. Nutritional support with DH tube feeding. Monitor potassium and sodium. Increasing TF to 65 ml/hr. Blood sugars still with elevations - Increase Lantus to 50 units at HS. Increase scheduled Novolog and sliding scale. Increase Lasix back to 20mg IV BID due to increasing edema to legs. 04/19 Observing off antibiotics. Recheck CBC. Steroids DC'd. Febrile today. Repeat cx. Continue mechanical ventilation for respiratory support. FIO2 needs decreasing - pulm holding off on weaning d/t fever. Solu-Medrol at 40mg IV daily. Continue neb treatments and pulmonary toilet. Nutritional support with DH tube feeding. Monitor potassium and sodium. TF goal is 65 ml/hr. Blood sugars may improve off solu-medrol. Monitor. Continuing Lantus, scheduled Novolog and sliding scale. Lasix at to 20mg IV BID due to edema to legs. Abdomen slightly distended. Bowels have slowed down on lower dose of Reglan. Will plan for daily suppository and continue MoM. 04/20 Vanco and cefepime restarted for fever, suspecting new pneumonia. Continue mechanical ventilation for respiratory support. FIO2 needs increasing, fever, pneumonia - pulm holding off on weaning. Solu-Medrol DC'd 04/20. Continue neb treatments and pulmonary toilet. Blood sugars trending down off solu-medrol. Monitor. Continuing Lantus, scheduled Novolog and sliding scale. Nutritional support with DH tube feeding. Monitor potassium and sodium. TF goal is 65 ml/hr. Lasix at to 20mg IV BID due to edema to legs. Abdomen slightly distended. Bowels have slowed down on lower dose of Reglan again, will increase to 10 mg iv q6 and monitor. Daily suppository and continue MoM. KUB does not show obstruction. Pharmacy out of nystatin s&s for thrush. Start Diflucan 04/21/17 Continue Vancomycin - meropenem started yesterday - suspecting new pneumonia. Continue mechanical ventilation for respiratory support. FIO2 needs with slight improvement today. Continue neb treatments and pulmonary toilet. DH not flushing - will attempt to replace. If not able to restart TF would hold routine insulin and decrease Lantus to 15 units this evening to decrease potential for hypoglycemia. TF goal is 65 ml/hr. Lasix at to 20mg IV BID due to edema to legs. Creatinine, potassium, and BP stable. Discussed with Pulm about family concern regarding potential dental abscess - worry respiratory status not stable enough at this time to risk CT scan. 04/22/17 Continue Vancomycin and meropenem - WBC with decrease, still temp elevations. Continue mechanical ventilation for respiratory support. FIO2 needs down to 40% . Continue neb treatments and pulmonary toilet. DH replaced last night. Continuing with TF. TF goal is 65 ml/hr. Will give additional 20mg IV Lasix today as intake greater than output. Creatinine and potassium normal. Dr Ibarra consulted for possible trach - plans on 04/24. 04/23/17 Continue meropenem - Vancomycin stopped by ID as no staph isolated. WBC with decrease to 12.7. Continue mechanical ventilation for respiratory support. FIO2 needs down to 40% . Trach planned for tomorrow. Continue neb treatments and pulmonary toilet. PRN Ibuprofen added to help temp elevation. TF to hold after midnight tonight. Will hold Lantus 50 units and Scheduled insulin to decrease risk for hypoglycemia. Lantus 10 units tonight x1. 04/25/17 Continue meropenem for antimicrobial coverage. WBC has normalized, temp elevations present. ID recommending at least 7 days of Meropenem. Continue mechanical ventilation for respiratory support. Continue neb treatments and pulmonary toilet. Tube Feeding restarted. Increase Lantus to 50 units nightly. Will give 20mEq KCL per tube today as potassium low-likely secondary to holding TF yesterday. [facility] - suspect slow recovery.
[2017-04-25] MEDS ORDERED: FALL RISK - PHARMACY CONSULT XX ONE (17:55)
[2017-04-25] MEDS: INSULIN GLARGINE 100unit/ml INJECTION SQ SCH (21:49)
[2017-04-26] MEDS: MIDAZOLAM IV PRN (00:20)
[2017-04-26] MEDS: RTU SALINE IV PRN (00:20)
[2017-04-26] MEDS: DEXMEDETOMIDINE IV PRN ×2 (00:21→07:49)
[2017-04-26] MEDS: NS IV PRN ×2 (00:21→07:49)
[2017-04-26] MEDS: INSULIN ASPART 100unit/ml INJECTION SQ PRN ×3 (00:22→13:11)
[2017-04-26] MEDS: ALBUTEROL/IPRATROPIUM 2.5mg-0.5mg/3ml NEB AEROSOL SCH ×6 (00:23→20:01)
[2017-04-26] MEDS: SODIUM CL 3% INHAL.SOLN 15ml NEB AEROSOL SCH ×2 (00:24→15:22)
[2017-04-26] MEDS: METOCLOPRAMIDE 10mg/2ml INJECTION IVP SCH ×4 (03:17→21:05)
[2017-04-26] MEDS: ACETAMINOPHEN 160mg/5ml ORAL LIQUID PO PRN (03:17)
[2017-04-26] MEDS: MEROPENEM 1 GM in NS 100 ML IV SCH ×3 (03:18→20:17)
[2017-04-26] MEDS: BUDESONIDE INH.SOLN 0.5mg/2ml NEB AEROSOL SCH (07:08)
[2017-04-26] MEDS: FUROSEMIDE 20 MG/2 ML INJECTION IVP SCH ×2 (08:03→21:05)
[2017-04-26] MEDS: PANTOPRAZOLE 40 MG INJECTION IVP SCH ×2 (08:03→21:05)
[2017-04-26] MEDS: ENOXAPARIN 40 MG/0.4 ML INJECTION SQ SCH (08:03)
[2017-04-26] MEDS: FLUCONAZOLE 40 MG/ML PO SCH (08:04)
[2017-04-26] MEDS: CHLORHEXIDINE 0.12% ORAL RINSE PO SCH ×2 (08:05→21:32)
[2017-04-26] MEDS: NYSTATIN 500,000 units/5 ml ORAL LIQUID PO SCH ×4 (08:05→21:24)
[2017-04-26] MEDS: TERFINAFINE 1% CREAM 12 G TUBE TOP SCH ×2 (08:06→21:24)
[2017-04-26] MEDS: BENZOCAINE 20% ORAL GEL (Max Strength) MM PRN (08:06)
[2017-04-26] MEDS: BISACODYL 10 MG SUPPOSITORY RECTALLY SCH (08:07)
--- NOTE | 2017-04-26 10:18 | Progress Note ---
DATE OF SERVICE 04/25/2017 FINDINGS Mr Zamora was seen this evening on rounds. He was resting comfortably on the vent. Nursing states that they have not had any difficulty with the tracheostomy. Dressing remains to be in place beneath the tracheostomy. Tracheostomy is secured. Nursing also states that he has been tolerating his tube feedings. EXAM ABDOMEN: Soft, nontender. No significant erythema noted around the insertion site of gastrostomy tube. ASSESSMENT 43-year-old gentleman with respiratory failure requiring prolonged mechanical vein ventilation. Patient status post tracheostomy and placement of percutaneous endoscopic gastrostomy tube. Patient doing well from a surgical standpoint. PLAN Will not plan on seeing the patient over the course of this upcoming weekend. If surgical care is needed please contact the general surgeon on-call. LUCIE
[2017-04-26] MEDS: IBUPROFEN 100 MG/5 ML ORAL LIQUID PO PRN (10:48)
--- NOTE | 2017-04-26 11:11 | Pulmonology Progress Note ---
Subjective Principal diagnosis: respiratory failure Interval history: Trach and Peg functioning well. on ACVC+ vent, Vt 500, rate 15, Peep 6, Fio2 40% SpO2 95% Temp 101.6 - persistently febrile Blood cultures showing staph species...final ID pending Awake and responds. On precedex drip still. appears comfortable remains on Meropenem. ID managing. Exam Vital signs: Temperature 101.6 F H 04/26/17 03:00 Pulse Rate 76 04/26/17 10:45 Respiratory Rate 27 H 04/26/17 10:45 Blood Pressure 115/74 04/26/17 10:00 Pulse Oximetry 93 04/26/17 10:45 - Constitutional no acute distress, obese - Routine HEENT Exam Head: Present: normocephalic Eye: Present: EOMI, PERRL. Absent: conjunctival icterus ENT: Present: mucous membranes moist - Routine Neck Exam Present: supple Comments: #8.0 Shiley trach intact - Routine Respiratory Exam Present: rhonchi - Routine Cardiovascular Exam Present: RRR - Routine Abdominal Exam Present: distended. Absent: guarding - Urinary Catheter Management Urethral Cath placed during this visit: yes Urethral indwelling: Yes Insertion date: 04/02/17 Insertion time: 22:20 Assessment and Plan (1) Acute respiratory failure with hypoxia Status: Acute Assessment and plan: Continue mechanical ventilation Stop Precedex. We can use prn fentanyl and Ativan as needed for comfort Possible LTAC transfer next week. Fevers remain a concern. Blood cultures suggest contaminant however repeat has shown staph species. If fevers persist, further workup may be needed. Continue TF's CXR shows hazy opacity on the right, new compared to 04/25. Will monitor for worsening atelectasis. Continue neb treatments and suction. Current Visit: Yes - Assessment and Plan Acute Hypoxic hypercapnic Respiratory Failure CAP Pneumonia Sepsis/ARDS Likely COPD Likely GLADYS - will need OP PSG Elevated LFT's HyperKalemia Fluid overload - Time Spent With Patient Total time spent is greater than 50% in coordination of care (as documented) at patient's floor/unit and/or counseling patient: 25 - 35 minutes
--- NOTE | 2017-04-26 13:22 | Progress Note ---
- Date 04/26/17 Subjective: F/U: Acute respiratory failure, ARDS, Pneumonia Sedation decreased-more awake and interactive. Follows commands. Will attempt to use Yonker to help clear secretions. TF needed to be held secondary to increased residuals. Nursing reports patient passing stools-not as copious as days ago, but still with moderated output. Urine output stable. Weight increased (suspected prior days weight incorrect). Maintaining saturations of 40 % FiO2-not fighting at vent. Objective Vital signs: Temperature 101 F H 04/26/17 12:41 Pulse Rate 78 04/26/17 11:18 Respiratory Rate 18 04/26/17 11:28 Blood Pressure 115/74 04/26/17 10:00 Pulse Oximetry 95 04/26/17 11:28 Rhythm: Normal Sinus Rhythm Height/Weight/BMI: Height 1.8 m Weight 141.1 kg Body Mass Index 51.2 - Constitutional Present: well nourished, well developed, morbidly obese, cooperative. Absent: agitated, somnolent - Routine HEENT Exam Head: Present: normocephalic, atraumatic Eye: Present: EOMI, PERRL - Routine Respiratory Exam Present: patient mechanically ventilated, decreased breath sounds. Absent: respiratory distress, rhonchi, wheezes, crackles - Routine Cardiovascular Exam Present: RRR, no murmur - Routine Abdominal Exam Present: soft, normoactive bowel sounds, non tender, distended. Absent: guarding - Routine Exam Comments: Walker present - Routine Extremities Exam Present: edema (Bilateral pedal edema and edema to hands ), pulses intact Comments: SCD present - Routine Musculoskeletal Exam Musculoskeletal: Present: no clubbing or cyanosis - Routine Skin Exam Present: dry, warm - Routine Neurological Exam Present: alert, moving all extremities - Routine Psychiatric Exam Absent: anxious, agitated Results - Labs CBC & Chem 7: 04/26/17 05:13 04/26/17 05:13 Microbiology Results: Microbiology 04/25/17 11:07 Peripheral/Iv Start Blood Culture - Preliminary No Growth After 1 Day 04/25/17 11:00 Peripheral/Iv Start Gram Stain - Final 04/25/17 11:00 Peripheral/Iv Start Blood Culture - Preliminary Staphylococcus species 04/19/17 13:37 Peripheral/Iv Start Blood Culture - Final No Growth After 5 Days 04/19/17 13:26 Port/Picc Gram Stain - Final 04/19/17 13:26 Port/Picc Blood Culture - Final Coag negative Staphylococcus 04/21/17 13:33 Blood Cryptococcal Antigen (Serum) - Final 04/19/17 15:45 Sputum, Suctioned Gram Stain - Final 04/19/17 15:45 Sputum, Suctioned Sputum Culture - Final Normal Respiratory Jesus 04/13/17 14:50 Sputum, Suctioned Gram Stain - Final 04/13/17 14:50 Sputum, Suctioned Sputum Culture - Final Normal Respiratory Jesus Present 04/09/17 10:00 Port/Picc Blood Culture - Final No Growth After 5 Days 04/09/17 09:24 Port/Picc Blood Culture - Final No Growth After 5 Days 04/06/17 10:37 Port/Picc Gram Stain - Final 04/06/17 10:37 Port/Picc Blood Culture - Final Corynebacterium species 04/06/17 11:03 Port/Picc Blood Culture - Final No Growth After 5 Days 04/07/17 08:43 Nasopahrynx Gram Stain - Final 04/07/17 08:43 Nasopahrynx Nasopharyngeal Culture - Final Normal Respiratory Jesus 04/03/17 11:30 Sputum, Suctioned Gram Stain - Final 04/03/17 11:30 Sputum, Suctioned Sputum Culture - Final Normal Respiratory Jesus 04/03/17 10:38 Urine Legionella Urinary Antigen - Final 04/03/17 10:38 Urine Streptococcus pneumoniae Antigen (M - Final Assessment and Plan (1) Community acquired pneumonia Current visit: No Status: Acute Assessment and Plan: Assessment Acute hypoxic and hypercarbic respiratory failure-requiring mechanical ventilation. Intubated on 04/02/2017. Versed and fentanyl for sedation ARDS Community - acquired pneumonia-severe, requiring intubation. Levaquin initiated 04/03/2017 and Rocephin initiated 04/02/2017. Changed Rocephin to cefepime on . Sepsis secondary to pneumonia on admission Manifestations: Tachycardia, tachypnea, leukocytosis. Lactate normal on admission CODE BLUE/bradycardia versus short lasting asystole on 04/06/2017-patient received chest compressions 3 - EKG and troponin post event were normal Elevated d-dimer 555 - Lovenox therapeutic dose initiated 04/06/2017. Blood culture one of 2 on 04/06/2027 positive for corynebacterium -discussed with Dr. Johnson. This is most likely contaminant. Anasarca - improving; significant decrease of fluid since admit Echocardiogram revealed normal EF, left ventricular hypertrophy, PA pressure 41 with mild pulmonary hypertension (echo 04/06/2017 unchanged on recheck)-BNP has been normal. Diabetes Mellitus Type 2 - A1C 7.1 on admission (new diagnosis)-on Lantus, scheduled NovoLog and sliding scale insulin Possible COPD Probable obstructive sleep apnea Chronic back pain with high-dose ibuprofen and Tylenol use prior to admission Tinea corporis/ringworm? Tobacco dependence Hyperkalemia with potassium up to 5.5 of undetermined etiology (Not POA). Possible sinusitis right nears with copious thick nasal secretions - C/S showing normal jesus Mild hypernatremia (Not POA) Morbid obesity-BMI 42.0 Plan Continue meropenem for antimicrobial coverage. WBC has normalized, temp elevations present. ID recommending at least 7 days of Meropenem. Continue mechanical ventilation for respiratory support. Continue neb treatments and pulmonary toilet. Respiratory status stable. Continue with Tube Feeding restarted. Will give 30cc MOM to help stimulate bowel function due to increased residuals. Will give 40mEq KCL per tube today as potassium low. Volume status stable - will continue IV Lasix. Recheck BMP in am secondary to medication use. Will repeat CBC in am due to leukocytosis. Case discussed with CCU nursing and family. Time spent with patient care 25 minutes. DVT Prophylaxis: SCD's, Lovenox Resuscitation Status: Full Code - Time spent with patient Time with patient PN: 25 minutes - Physician Narrative Physician: Wally Lewis MD Narrative: Date: 04/26/17 Time: 1319 Hospital Course Summary Disclaimer: The visit summary below is not to be considered part of the above Progress Note. Hospital Course: Assessment Respiratory insufficiency with hypoxia Sepsis secondary to pneumonia Manifestations: Tachycardia, tachypnea, leukocytosis Community-acquired pneumonia Anasarca Morbid obesity-BMI 42.0 Hyperglycemia-POA Tinea corporis Tobacco dependence 04/02/17 Hospital admission Admit to inpatient status under the care of the hospitalist service, Dr. Lewis attending. It is expected that his stay will exceed 2 overnights given his sepsis secondary to pneumonia and overall condition. SCDs and Lovenox for DVT prophylaxis Urinalysis for laboratory completeness. Repeat CBC and BMP in am to follow leukocytosis, renal function and electrolytes. Schedule echocardiogram to evaluate cardiac structure and function given his anasarca and dyspnea. Oxygen, DuoNeb treatments, Acapella, and guaifenesin for respiratory symptoms. Continue Rocephin and Zithromax initiated and the emergency room. Blood cultures were drawn prior to antibiotic initiation. RT consult tobacco cessation. Terbinafine topically for his tinea corporis Patient wishes to be a full code. Case discussed with Dr. Lewis. Case management will need to assist in finding patient a PCP. 04/04/17 12:03 Plan The patient continues to require mechanical ventilation and is on 100% FiO2 regarding his ARDS and pneumonia. Continue ventilator support - Dr. Pineda is following. His help is greatly appreciated. Continue Levaquin initiated 04/03/2017 and Rocephin initiated 04/02/2017 Continue Solu-Medrol Discussed with Dr. Pineda, will change Lovenox to prophylactic dose. Venous Doppler of the legs were negative for DVT. No signs of right heart strain on echocardiogram. Advance tube feedings Nutren luminary 1.5 to goal of 70 ML's per hour. Start free water 400 ML's every 8 hours. DC IV fluids Vishal blood pressure off of IV fluids. May need to initiate antihypertensive Start Lantus 10 units subcutaneous daily. Increase to medium dose sliding scale insulin. Continue Lasix 40 mg IV every 12. Patient is diuresing well. Check CBC and renal panel tomorrow. Chest x-ray tomorrow. Assess with Dr. Pineda, the patient's significant other, and the patient's nurse. 04/05/17 09:31 Plan The patient continues to require mechanical ventilation and is now on 95% FiO2 regarding his ARDS and pneumonia. Continue ventilator support per Dr. Pineda Continue Levaquin initiated 04/03/2017 and Rocephin initiated 04/02/2017. Continue Solu-Medrol Regarding hyperkalemia, will try to change to feeding to a renal tube feeds. Check ABG. (7.32/79/103 on 95% FiO2) Recheck basic metabolic profile later today. May need to increase fluids followed by diuresis for hyperkalemia Increase Lantus to 20 units subcutaneous daily for hyperglycemia. Increase sliding scale insulin to high dose Start Reglan and Dulcolax suppositories to stimulate GI tract. Decrease tube feed rate to 50 ML's for now. Greater than 40 minutes critical care time. 04/07/2017 Plan The patient continues to require mechanical ventilation and FiO2 100% regarding his ARDS and pneumonia. The patient has tolerated discontinuation of propofol and initiation of Versed. The patient is tolerating his tube feedings. Will advance as tolerated. Will increase free water to 200 ML's every 4 hours and decrease Lasix to 20 mg IV every 12 regarding his elated sodium. Continue to monitor blood pressure closely. Continue Levaquin initiated 04/03/2017 and Rocephin initiated 04/02/2017. Continue Solu-Medrol Regarding hyperkalemia-is resolved. Continue renal tube feeds Continue Reglan and Dulcolax suppositories to stimulate GI tract. Greater than 45 minutes of critical care time spent seeing and evaluating the patient. The patient's brother was updated. 04/08/17 09:49 Plan Overall, the patient is stable. He is diuresing well. Weight is down approximately 22 kg over the past 1 week. He has been on the ventilator for one week now. FiO2 turned down to 95% this morning. Consulted Dr. Johnson regarding positive blood culture and antibiotic recommendations The patient continues to require mechanical ventilation regarding his ARDS and pneumonia. FiO2 down to 95% this morning The patient is tolerating his tube feedings. Will advance as tolerated to goal. Will increase free water to 250 ML's every 4 hours. Continue Lasix 20 mg IV every 12. Continue to monitor blood pressure closely. Continue Levaquin initiated 04/03/2017 and Rocephin initiated 04/02/2017. Continue Solu-Medrol and breathing treatments Regarding hyperkalemia- Continue renal tube feeds Continue Reglan and Dulcolax suppositories to stimulate GI tract. Regarding possible mild upper GI bleed, will Gastric occult NG drainage. Hold Lovenox for now. Greater than 45 minutes of critical care time spent seeing and evaluating the patient. 04/09/17 Overall, the patient is improving. FiO2 is now down to 70%. The patient appears to be nearly euvolemic at this time. We'll continue Lasix. Weight is down approximately 22 kg over the past [address] Johnson recommends approximately 10 days of broad-spectrum antibiotics for his pneumonia. She recommended discontinuation of vancomycin today with corynebacterium found in one of 2 blood cultures on April 06 most likely being a contaminant. Currently at goal rate on tube feedings. He is on a renal formulation because of hyperkalemia. May need to increase free water further if sodium does not improving. Continue Levaquin initiated 04/03/2017 and Rocephin initiated 04/02/2017. Rocephin discontinued on 04/06/2017 and cefepime started. Vancomycin started and discontinued on 04/09/2017 Continue Solu-Medrol and breathing treatments Add MiraLAX for constipation Continue Lovenox for DVT prophylaxis (gastric occult from NG drainage was negative) 04/10/17 Debbie Continue with levofloxacin and cefepime for antimicrobial coverage - ID recommending an approximate 10 day course. Will continue with Solu-Medrol at 40mg IV q 8 hours -started on 03/26/17. Potentially could start to decrease. Continue neb treatments and pulmonary toilet. Nutritional support with DH tube feeding. Potassium normal. LFT with gradual increase-potential fatty liver secondary to continuous TF. Continue Lasix. Weight is down approximately 22 kg over the past 1 week. Renal status stable. Blood sugars showing persistent elevation in the low to mid 200's. Will increase Lantus to 34 units at night. 04/11/17 Continue with levofloxacin and cefepime for antimicrobial coverage - ID recommending an approximate 10 day course. With increased temp, persistent leukocytosis, steroid and antibiotic use will start Diflucan 200mg IV daily. Continue mechanical ventilation for respiratory support. Pulm decreased Solu-Medrol to 40mg IV q 12 hours. Continue neb treatments and pulmonary toilet. Slowly able to wean down FIO2. Nutritional support with DH tube feeding. Continue Lasix 20 mg IV BID. Creatinine and BP stable. Potassium with increase to 5.4 this am. Blood sugars still with elevations - will continue current regimen, watching for decrease with decreased Solu-Medrol. 04/12/17 Continue with levofloxacin and cefepime for antimicrobial coverage - ID recommending an approximate 10 day course. Diflucan 200mg IV daily started 04/11/17. Continue mechanical ventilation for respiratory support - Solu-Medrol at 40mg IV q 12 hours. O2 needs increased today - likely mucous plugging. Creatinine with increase to 1.1. Edema much improved. Will decrease Lasix to 20mg daily to minimize overdiuresis. Blood sugars still with elevations - Increase Lantus to 38 units at HS. 04/13/17 Continue with levofloxacin and cefepime for antimicrobial coverage - ID recommending an approximate 10 day course. Diflucan 200mg IV daily started 04/11/17. Vancomycin started on 04/12/17 secondary to temp elevations. Continue mechanical ventilation for respiratory support. Increasing FIO2 - needing 100%. Sputum culture ordered by Dr Pineda. Solu-Medrol at 40mg IV q 12 hours. Continue neb treatments and pulmonary toilet. Nutritional support with DH tube feeding. Creatinine did decrease to 0.8. With increasing oxygen needs and increased intake as compared to output past 2 days will give 20mg IV Lasix. Blood sugars still with elevations - Increase Lantus to 42 units at HS. 04/14/17 Continue with levofloxacin and cefepime for antimicrobial coverage Diflucan 200mg IV daily started 04/11/17. Vancomycin started on 04/12/17 secondary to temp elevations. Continue mechanical ventilation for respiratory support. Sputum culture ordered 04/13 with results pending. Solu-Medrol at 40mg IV q 12 hours. Nutritional support with DH tube feeding. Potassium and sodium normal. Blood sugars still with elevations - Increase Lantus to 46 units at HS. Doppler legs pending - ? DVT as more pedal edema present. 04/15/17 Continue with levofloxacin and cefepime for antimicrobial coverage - ID recommending an approximate 10 day course. Diflucan 200mg IV daily started 04/11/17. Vancomycin started on 04/12/17 secondary to temp elevations. Continue mechanical ventilation for respiratory support. FIO2 needs decreasing - pulm weaning. Secretions decreasing. Sputum culture ordered 04/13 with normal respiratory jesus. Solu-Medrol at 40mg IV q 12 hours. Continue neb treatments and pulmonary toilet. Nutritional support with DH tube feeding. Potassium and sodium normal. Blood sugars still with elevations - Increase Lantus to 50 units at HS. Increase Lasix back to 20mg IV BID due to increasing edema to legs. Doppler legs from 04/14/17 showing no DVT - continue Lovenox 40mg SQ daily and SCD. 04/16/17 ID recommending stopping antibiotics and observing. Continue mechanical ventilation for respiratory support. FIO2 needs decreasing - pulm weaning. Secretions decreasing. Solu-Medrol at 40mg IV q 12 hours. Continue neb treatments and pulmonary toilet. Nutritional support with DH tube feeding. Potassium and sodium normal. Blood sugars still with elevations - Increase Lantus to 50 units at HS. Increase Lasix back to 20mg IV BID due to increasing edema to legs. Doppler legs from 04/14/17 showing no DVT - continue Lovenox 40mg SQ daily and SCD. Condition critical, showing improvement from the weekend. Continued CCU care needed secondary to respiratory failure and mechanical ventilation. 04/17/17 Observing off antibiotics. Continue mechanical ventilation for respiratory support. FIO2 needs decreasing - pulm weaning. Secretions decreasing. Solu-Medrol at 40mg IV daily. Continue neb treatments and pulmonary toilet. Nutritional support with DH tube feeding. Monitor potassium and sodium. Increasing TF to 65 ml/hr. Blood sugars still with elevations - Increase Lantus to 50 units at HS. Increase scheduled Novolog and sliding scale. Increase Lasix back to 20mg IV BID due to increasing edema to legs. 04/19 Observing off antibiotics. Recheck CBC. Steroids DC'd. Febrile today. Repeat cx. Continue mechanical ventilation for respiratory support. FIO2 needs decreasing - pulm holding off on weaning d/t fever. Solu-Medrol at 40mg IV daily. Continue neb treatments and pulmonary toilet. Nutritional support with DH tube feeding. Monitor potassium and sodium. TF goal is 65 ml/hr. Blood sugars may improve off solu-medrol. Monitor. Continuing Lantus, scheduled Novolog and sliding scale. Lasix at to 20mg IV BID due to edema to legs. Abdomen slightly distended. Bowels have slowed down on lower dose of Reglan. Will plan for daily suppository and continue MoM. 04/20 Vanco and cefepime restarted for fever, suspecting new pneumonia. Continue mechanical ventilation for respiratory support. FIO2 needs increasing, fever, pneumonia - pulm holding off on weaning. Solu-Medrol DC'd 04/20. Continue neb treatments and pulmonary toilet. Blood sugars trending down off solu-medrol. Monitor. Continuing Lantus, scheduled Novolog and sliding scale. Nutritional support with DH tube feeding. Monitor potassium and sodium. TF goal is 65 ml/hr. Lasix at to 20mg IV BID due to edema to legs. Abdomen slightly distended. Bowels have slowed down on lower dose of Reglan again, will increase to 10 mg iv q6 and monitor. Daily suppository and continue MoM. KUB does not show obstruction. Pharmacy out of nystatin s&s for thrush. Start Diflucan 04/21/17 Continue Vancomycin - meropenem started yesterday - suspecting new pneumonia. Continue mechanical ventilation for respiratory support. FIO2 needs with slight improvement today. Continue neb treatments and pulmonary toilet. DH not flushing - will attempt to replace. If not able to restart TF would hold routine insulin and decrease Lantus to 15 units this evening to decrease potential for hypoglycemia. TF goal is 65 ml/hr. Lasix at to 20mg IV BID due to edema to legs. Creatinine, potassium, and BP stable. Discussed with Pulm about family concern regarding potential dental abscess - worry respiratory status not stable enough at this time to risk CT scan. 04/22/17 Continue Vancomycin and meropenem - WBC with decrease, still temp elevations. Continue mechanical ventilation for respiratory support. FIO2 needs down to 40% . Continue neb treatments and pulmonary toilet. DH replaced last night. Continuing with TF. TF goal is 65 ml/hr. Will give additional 20mg IV Lasix today as intake greater than output. Creatinine and potassium normal. Dr Ibarra consulted for possible trach - plans on 04/24. 04/23/17 Continue meropenem - Vancomycin stopped by ID as no staph isolated. WBC with decrease to 12.7. Continue mechanical ventilation for respiratory support. FIO2 needs down to 40% . Trach planned for tomorrow. Continue neb treatments and pulmonary toilet. PRN Ibuprofen added to help temp elevation. TF to hold after midnight tonight. Will hold Lantus 50 units and Scheduled insulin to decrease risk for hypoglycemia. Lantus 10 units tonight x1. 04/25/17 Continue meropenem for antimicrobial coverage. WBC has normalized, temp elevations present. Continue mechanical ventilation for respiratory support. Continue neb treatments and pulmonary toilet. Tube Feeding restarted. Increase Lantus to 50 units nightly. Will give 20mEq KCL per tube today as potassium low-likely secondary to holding TF yesterday. CM checking into halfway acute care hospitalization - suspect slow recovery. 04/26/17 Continue meropenem for antimicrobial coverage. WBC has normalized, temp elevations present. ID recommending at least 7 days of Meropenem. Continue mechanical ventilation for respiratory support. Continue neb treatments and pulmonary toilet. Respiratory status stable. Continue with Tube Feeding restarted. Will give 30cc MOM to help stimulate bowel function due to increased residuals. Will give 40mEq KCL per tube today as potassium low. Volume status stable - will continue IV Lasix.
[2017-04-26] MEDS: FentaNYL 100 MCG/2 ML INJECTION IVP PRN ×4 (13:58→21:06)
[2017-04-26] MEDS ORDERED: ALTEPLASE (Cathflo*) 2mg INJECTION IV ONE (15:22)
[2017-04-26] MEDS ORDERED: ONDANSETRON 4 MG/2 ML INJECTION IVP PRN (17:59)
[2017-04-26] MEDS: SALINE FLUSH 10ml SYRINGE IV PRN ×2 (18:07→22:32)
[2017-04-26] MEDS ORDERED: INSULIN GLARGINE 100unit/ml INJECTION SQ ONE (21:00)
[2017-04-26] MEDS: NS FLUSH BAG 500ml IV PRN (21:24)
[2017-04-26] MEDS: ACETAMINOPHEN 650 MG SUPPOSITORY PR PRN (21:36)
[2017-04-26] MEDS ORDERED: HALOPERIDOL 5 MG/ML INJECTION IVP ONE (22:27)
[2017-04-27] MEDS: ALBUTEROL/IPRATROPIUM 2.5mg-0.5mg/3ml NEB AEROSOL SCH ×6 (00:05→20:16)
[2017-04-27] MEDS: SALINE FLUSH 10ml SYRINGE IV PRN ×4 (00:45→08:50)
[2017-04-27] MEDS: FentaNYL 100 MCG/2 ML INJECTION IVP PRN (00:45)
[2017-04-27] MEDS ORDERED: HALOPERIDOL 5 MG/ML INJECTION IVP PRN (00:54)
[2017-04-27] MEDS: METOCLOPRAMIDE 10mg/2ml INJECTION IVP SCH ×4 (02:13→22:17)
[2017-04-27] MEDS: SODIUM CL 3% INHAL.SOLN 15ml NEB AEROSOL SCH ×2 (03:45→15:19)
[2017-04-27] MEDS: ACETAMINOPHEN 650 MG SUPPOSITORY PR PRN (04:08)
[2017-04-27] MEDS: MEROPENEM 1 GM in NS 100 ML IV SCH ×3 (04:28→21:26)
[2017-04-27] MEDS: ENOXAPARIN 40 MG/0.4 ML INJECTION SQ SCH (08:43)
[2017-04-27] MEDS: FLUCONAZOLE 40 MG/ML PO SCH (08:44)
[2017-04-27] MEDS: FUROSEMIDE 20 MG/2 ML INJECTION IVP SCH ×2 (08:49→22:18)
[2017-04-27] MEDS: PANTOPRAZOLE 40 MG INJECTION IVP SCH ×2 (08:50→22:21)
--- NOTE | 2017-04-27 09:11 | XRay Report ---
Indication: ng tube placement PROCEDURE: XR abdomen 1V: Encounter: Initial Comparison: April 19, 2017 Findings: Nasogastric tube appears looped or possibly kinked in the stomach with the tip projecting over the pyloric region. This is somewhat difficult to visualize on this exposure. Impression: Findings as above. There is a preliminary report by virtual [facility]. .
--- NOTE | 2017-04-27 10:30 | XRay Report ---
Indication: f/u PROCEDURE: XR chest 1V: Encounter: Initial Comparison: April 25, 2017 Findings: Right IJ line and tracheostomy tube remain in place. Continued hazy opacification of the left lung field. Fine airspace opacity in the right lung is stable. No obvious new or worsening infiltrates. No pneumothorax. Probable small left effusion. Cardiomediastinal contours are grossly stable. Impression: No change. .
--- NOTE | 2017-04-27 11:29 | Pulmonology Progress Note ---
Subjective Principal diagnosis: respiratory failure Interval history: Pt awake on the vent, received haldol last night and has been calm this am. Turns head to voice and is following commands, no distress noted. Currently on ACVC+ vent, Vt 500, rate 15, Peep 6, Fio2 40%, victor m well, afebrile this am 98.6. Exam Vital signs: Temperature 98.4 F 04/27/17 10:00 Pulse Rate 104 H 04/27/17 10:00 Respiratory Rate 22 04/27/17 10:00 Blood Pressure 123/73 04/27/17 10:00 Pulse Oximetry 92 04/27/17 10:00 - Constitutional no acute distress, morbidly obese - Routine HEENT Exam Head: Present: normocephalic, atraumatic Eye: Present: EOMI, PERRL ENT: Present: mucous membranes moist - Routine Neck Exam Present: full ROM, trachea midline Comments: #8 Shiley trach - Routine Respiratory Exam Present: patient mechanically ventilated, CTA bilaterally - Routine Cardiovascular Exam Present: RRR, S1, S2, no murmur - Routine Abdominal Exam Comments: hypoactive - Routine Extremities Exam Present: edema, full ROM Comments: Full ROM passive, wiggles toes but very weak. - Routine Skin Exam Present: intact, dry - Routine Neurological Exam Present: alert, CN II-XII intact - Routine Psychiatric Exam Present: unable to assess - Urinary Catheter Management Urethral Cath placed during this visit: yes Urethral indwelling: Yes Reason for continuing: Prolonged Immobilization Insertion date: 04/02/17 Insertion time: 22:20 Assessment and Plan - Assessment and Plan Acute Hypoxic hypercapnic Respiratory Failure CAP Pneumonia Sepsis/ARDS Likely COPD Likely GLADYS - will need OP PSG Elevated LFT's Fluid overload Debility Plan: Pt currently on Ac/VC f 15, Vt 500, Peep 6, Fio2 40%, will try PSV for 1hr BID today and see how he tolerates. Afebrile this am 98.6 but febrile overnoc. Still on merrem per ID, BC x1 again with coag neg staph likely contaminant, abx per ID. Off all sedation, received haldol x 1 last noc and has been calm today. Will recheck CXR in am and hold on 3%, min sputum noted and not thick per RT. Likely LTACH next week. - Time Spent With Patient Total time spent is greater than 50% in coordination of care (as documented) at patient's floor/unit and/or counseling patient: less than 15 minutes
--- NOTE | 2017-04-27 14:20 | Progress Note ---
- Date 04/27/17 Subjective: F/U: Acute respiratory failure, ARDS, Pneumonia Rough evening yesterday. Had significant episode of emesis. TF held and Lantus decreased. BS stable (decreased with no FT). Minimal stool output. Tolerating vent-Maintaining saturation. BP stable, but HR with increase. Objective Vital signs: Temperature 98.4 F 04/27/17 10:00 Pulse Rate 102 H 04/27/17 13:35 Respiratory Rate 34 H 04/27/17 13:35 Blood Pressure 132/76 04/27/17 12:00 Pulse Oximetry 92 04/27/17 13:35 Rhythm: Normal Sinus Rhythm Height/Weight/BMI: Height 1.8 m Weight 141.1 kg Body Mass Index 51.2 - Constitutional Present: well nourished, well developed, morbidly obese - Routine HEENT Exam Head: Present: normocephalic, atraumatic Eye: Present: EOMI, PERRL ENT: Present: mucous membranes moist - Routine Respiratory Exam Present: patient mechanically ventilated, decreased breath sounds. Absent: rales, rhonchi, wheezes - Routine Cardiovascular Exam Present: no murmur, tachycardia (Regular ) - Routine Abdominal Exam Present: soft, non distended. Absent: normoactive bowel sounds - Routine Exam Comments: Walker present - Routine Extremities Exam Present: edema (Pedal bilaterally ), pulses intact. Absent: cyanosis, clubbing - Routine Musculoskeletal Exam Musculoskeletal: Present: no clubbing or cyanosis - Routine Skin Exam Present: dry, warm - Routine Neurological Exam Present: alert Eyes open, tracks. - Routine Psychiatric Exam Absent: anxious, agitated Results - Labs CBC & Chem 7: 04/27/17 04:27 04/27/17 04:27 Microbiology Results: Microbiology 04/25/17 11:07 Peripheral/Iv Start Blood Culture - Preliminary No Growth After 2 Days 04/25/17 11:00 Peripheral/Iv Start Gram Stain - Final 04/25/17 11:00 Peripheral/Iv Start Blood Culture - Preliminary Coag negative Staphylococcus 04/19/17 13:37 Peripheral/Iv Start Blood Culture - Final No Growth After 5 Days 04/19/17 13:26 Port/Picc Gram Stain - Final 04/19/17 13:26 Port/Picc Blood Culture - Final Coag negative Staphylococcus 04/21/17 13:33 Blood Cryptococcal Antigen (Serum) - Final 04/19/17 15:45 Sputum, Suctioned Gram Stain - Final 04/19/17 15:45 Sputum, Suctioned Sputum Culture - Final Normal Respiratory Jesus 04/13/17 14:50 Sputum, Suctioned Gram Stain - Final 04/13/17 14:50 Sputum, Suctioned Sputum Culture - Final Normal Respiratory Jesus Present 04/09/17 10:00 Port/Picc Blood Culture - Final No Growth After 5 Days 04/09/17 09:24 Port/Picc Blood Culture - Final No Growth After 5 Days 04/06/17 10:37 Port/Picc Gram Stain - Final 04/06/17 10:37 Port/Picc Blood Culture - Final Corynebacterium species 04/06/17 11:03 Port/Picc Blood Culture - Final No Growth After 5 Days 04/07/17 08:43 Nasopahrynx Gram Stain - Final 04/07/17 08:43 Nasopahrynx Nasopharyngeal Culture - Final Normal Respiratory Jesus 04/03/17 11:30 Sputum, Suctioned Gram Stain - Final 04/03/17 11:30 Sputum, Suctioned Sputum Culture - Final Normal Respiratory Jesus 04/03/17 10:38 Urine Legionella Urinary Antigen - Final 04/03/17 10:38 Urine Streptococcus pneumoniae Antigen (M - Final Assessment and Plan (1) Community acquired pneumonia Current visit: No Status: Acute Assessment and Plan: Assessment Acute hypoxic and hypercarbic respiratory failure-requiring mechanical ventilation. Intubated on 04/02/2017. Versed and fentanyl for sedation ARDS Community - acquired pneumonia-severe, requiring intubation. Levaquin initiated 04/03/2017 and Rocephin initiated 04/02/2017. Changed Rocephin to cefepime on . Sepsis secondary to pneumonia on admission Manifestations: Tachycardia, tachypnea, leukocytosis. Lactate normal on admission CODE BLUE/bradycardia versus short lasting asystole on 04/06/2017-patient received chest compressions 3 - EKG and troponin post event were normal Elevated d-dimer 555 - Lovenox therapeutic dose initiated 04/06/2017. Blood culture one of 2 on 04/06/2027 positive for corynebacterium -discussed with Dr. Johnson. This is most likely contaminant. Anasarca - improving; significant decrease of fluid since admit Echocardiogram revealed normal EF, left ventricular hypertrophy, PA pressure 41 with mild pulmonary hypertension (echo 04/06/2017 unchanged on recheck)-BNP has been normal. Diabetes Mellitus Type 2 - A1C 7.1 on admission (new diagnosis)-on Lantus, scheduled NovoLog and sliding scale insulin Possible COPD Probable obstructive sleep apnea Chronic back pain with high-dose ibuprofen and Tylenol use prior to admission Tinea corporis/ringworm? Tobacco dependence Hyperkalemia with potassium up to 5.5 of undetermined etiology (Not POA). Possible sinusitis right nears with copious thick nasal secretions - C/S showing normal jesus Mild hypernatremia (Not POA) Morbid obesity-BMI 42.0 Plan Continue meropenem for antimicrobial coverage. WBC has normalized. ID recommending at least 7 days of Meropenem. Continue mechanical ventilation for respiratory support. Continue neb treatments and pulmonary toilet. Respiratory status stable. Hold on tube feedings for bowel rest secondary to emesis last night. Will check KUB/Upright. Lantus held secondary to holding TF. BS stable. Start 1/2NS with 20KCl at 75 for maintenance fluids with holding TF. Restart Dulcolax suppositories for bowel stimulation. Volume status stable - will continue IV Lasix. Recheck CMP in am secondary to medication use. Will repeat CBC in am due to leukocytosis. Case discussed with CCU nursing and family. Time spent with patient care 25 minutes. DVT Prophylaxis: SCD's, Lovenox Resuscitation Status: Full Code - Time spent with patient Time with patient PN: 25 minutes - Physician Narrative Physician: Wally Lewis MD Narrative: Date: 04/27/17 Time: 1417 Hospital Course Summary Disclaimer: The visit summary below is not to be considered part of the above Progress Note. Hospital Course: Assessment Respiratory insufficiency with hypoxia Sepsis secondary to pneumonia Manifestations: Tachycardia, tachypnea, leukocytosis Community-acquired pneumonia Anasarca Morbid obesity-BMI 42.0 Hyperglycemia-POA Tinea corporis Tobacco dependence 04/02/17 Hospital admission Admit to inpatient status under the care of the hospitalist service, Dr. Lewis attending. It is expected that his stay will exceed 2 overnights given his sepsis secondary to pneumonia and overall condition. SCDs and Lovenox for DVT prophylaxis Urinalysis for laboratory completeness. Repeat CBC and BMP in am to follow leukocytosis, renal function and electrolytes. Schedule echocardiogram to evaluate cardiac structure and function given his anasarca and dyspnea. Oxygen, DuoNeb treatments, Acapella, and guaifenesin for respiratory symptoms. Continue Rocephin and Zithromax initiated and the emergency room. Blood cultures were drawn prior to antibiotic initiation. RT consult tobacco cessation. Terbinafine topically for his tinea corporis Patient wishes to be a full code. Case discussed with Dr. Lewis. Case management will need to assist in finding patient a PCP. 04/04/17 12:03 Plan The patient continues to require mechanical ventilation and is on 100% FiO2 regarding his ARDS and pneumonia. Continue ventilator support - Dr. Pineda is following. His help is greatly appreciated. Continue Levaquin initiated 04/03/2017 and Rocephin initiated 04/02/2017 Continue Solu-Medrol Discussed with Dr. iPneda, will change Lovenox to prophylactic dose. Venous Doppler of the legs were negative for DVT. No signs of right heart strain on echocardiogram. Advance tube feedings Nutren luminary 1.5 to goal of 70 ML's per hour. Start free water 400 ML's every 8 hours. DC IV fluids Vishal blood pressure off of IV fluids. May need to initiate antihypertensive Start Lantus 10 units subcutaneous daily. Increase to medium dose sliding scale insulin. Continue Lasix 40 mg IV every 12. Patient is diuresing well. Check CBC and renal panel tomorrow. Chest x-ray tomorrow. Assess with Dr. Pineda, the patient's significant other, and the patient's nurse. 04/05/17 09:31 Plan The patient continues to require mechanical ventilation and is now on 95% FiO2 regarding his ARDS and pneumonia. Continue ventilator support per Dr. Pineda Continue Levaquin initiated 04/03/2017 and Rocephin initiated 04/02/2017. Continue Solu-Medrol Regarding hyperkalemia, will try to change to feeding to a renal tube feeds. Check ABG. (7.32/79/103 on 95% FiO2) Recheck basic metabolic profile later today. May need to increase fluids followed by diuresis for hyperkalemia Increase Lantus to 20 units subcutaneous daily for hyperglycemia. Increase sliding scale insulin to high dose Start Reglan and Dulcolax suppositories to stimulate GI tract. Decrease tube feed rate to 50 ML's for now. Greater than 40 minutes critical care time. 04/07/2017 Plan The patient continues to require mechanical ventilation and FiO2 100% regarding his ARDS and pneumonia. The patient has tolerated discontinuation of propofol and initiation of Versed. The patient is tolerating his tube feedings. Will advance as tolerated. Will increase free water to 200 ML's every 4 hours and decrease Lasix to 20 mg IV every 12 regarding his elated sodium. Continue to monitor blood pressure closely. Continue Levaquin initiated 04/03/2017 and Rocephin initiated 04/02/2017. Continue Solu-Medrol Regarding hyperkalemia-is resolved. Continue renal tube feeds Continue Reglan and Dulcolax suppositories to stimulate GI tract. Greater than 45 minutes of critical care time spent seeing and evaluating the patient. The patient's brother was updated. 04/08/17 09:49 Plan Overall, the patient is stable. He is diuresing well. Weight is down approximately 22 kg over the past 1 week. He has been on the ventilator for one week now. FiO2 turned down to 95% this morning. Consulted Dr. Johnson regarding positive blood culture and antibiotic recommendations The patient continues to require mechanical ventilation regarding his ARDS and pneumonia. FiO2 down to 95% this morning The patient is tolerating his tube feedings. Will advance as tolerated to goal. Will increase free water to 250 ML's every 4 hours. Continue Lasix 20 mg IV every 12. Continue to monitor blood pressure closely. Continue Levaquin initiated 04/03/2017 and Rocephin initiated 04/02/2017. Continue Solu-Medrol and breathing treatments Regarding hyperkalemia- Continue renal tube feeds Continue Reglan and Dulcolax suppositories to stimulate GI tract. Regarding possible mild upper GI bleed, will Gastric occult NG drainage. Hold Lovenox for now. Greater than 45 minutes of critical care time spent seeing and evaluating the patient. 04/09/17 Overall, the patient is improving. FiO2 is now down to 70%. The patient appears to be nearly euvolemic at this time. We'll continue Lasix. Weight is down approximately 22 kg over the past [address] Johnson recommends approximately 10 days of broad-spectrum antibiotics for his pneumonia. She recommended discontinuation of vancomycin today with corynebacterium found in one of 2 blood cultures on April 06 most likely being a contaminant. Currently at goal rate on tube feedings. He is on a renal formulation because of hyperkalemia. May need to increase free water further if sodium does not improving. Continue Levaquin initiated 04/03/2017 and Rocephin initiated 04/02/2017. Rocephin discontinued on 04/06/2017 and cefepime started. Vancomycin started and discontinued on 04/09/2017 Continue Solu-Medrol and breathing treatments Add MiraLAX for constipation Continue Lovenox for DVT prophylaxis (gastric occult from NG drainage was negative) 04/10/17 Debbie Continue with levofloxacin and cefepime for antimicrobial coverage - ID recommending an approximate 10 day course. Will continue with Solu-Medrol at 40mg IV q 8 hours -started on 03/26/17. Potentially could start to decrease. Continue neb treatments and pulmonary toilet. Nutritional support with DH tube feeding. Potassium normal. LFT with gradual increase-potential fatty liver secondary to continuous TF. Continue Lasix. Weight is down approximately 22 kg over the past 1 week. Renal status stable. Blood sugars showing persistent elevation in the low to mid 200's. Will increase Lantus to 34 units at night. 04/11/17 Continue with levofloxacin and cefepime for antimicrobial coverage - ID recommending an approximate 10 day course. With increased temp, persistent leukocytosis, steroid and antibiotic use will start Diflucan 200mg IV daily. Continue mechanical ventilation for respiratory support. Pulm decreased Solu-Medrol to 40mg IV q 12 hours. Continue neb treatments and pulmonary toilet. Slowly able to wean down FIO2. Nutritional support with DH tube feeding. Continue Lasix 20 mg IV BID. Creatinine and BP stable. Potassium with increase to 5.4 this am. Blood sugars still with elevations - will continue current regimen, watching for decrease with decreased Solu-Medrol. 04/12/17 Continue with levofloxacin and cefepime for antimicrobial coverage - ID recommending an approximate 10 day course. Diflucan 200mg IV daily started 04/11/17. Continue mechanical ventilation for respiratory support - Solu-Medrol at 40mg IV q 12 hours. O2 needs increased today - likely mucous plugging. Creatinine with increase to 1.1. Edema much improved. Will decrease Lasix to 20mg daily to minimize overdiuresis. Blood sugars still with elevations - Increase Lantus to 38 units at HS. 04/13/17 Continue with levofloxacin and cefepime for antimicrobial coverage - ID recommending an approximate 10 day course. Diflucan 200mg IV daily started 04/11/17. Vancomycin started on 04/12/17 secondary to temp elevations. Continue mechanical ventilation for respiratory support. Increasing FIO2 - needing 100%. Sputum culture ordered by Dr Pineda. Solu-Medrol at 40mg IV q 12 hours. Continue neb treatments and pulmonary toilet. Nutritional support with DH tube feeding. Creatinine did decrease to 0.8. With increasing oxygen needs and increased intake as compared to output past 2 days will give 20mg IV Lasix. Blood sugars still with elevations - Increase Lantus to 42 units at HS. 04/14/17 Continue with levofloxacin and cefepime for antimicrobial coverage Diflucan 200mg IV daily started 04/11/17. Vancomycin started on 04/12/17 secondary to temp elevations. Continue mechanical ventilation for respiratory support. Sputum culture ordered 04/13 with results pending. Solu-Medrol at 40mg IV q 12 hours. Nutritional support with DH tube feeding. Potassium and sodium normal. Blood sugars still with elevations - Increase Lantus to 46 units at HS. Doppler legs pending - ? DVT as more pedal edema present. 04/15/17 Continue with levofloxacin and cefepime for antimicrobial coverage - ID recommending an approximate 10 day course. Diflucan 200mg IV daily started 04/11/17. Vancomycin started on 04/12/17 secondary to temp elevations. Continue mechanical ventilation for respiratory support. FIO2 needs decreasing - pulm weaning. Secretions decreasing. Sputum culture ordered 04/13 with normal respiratory jesus. Solu-Medrol at 40mg IV q 12 hours. Continue neb treatments and pulmonary toilet. Nutritional support with DH tube feeding. Potassium and sodium normal. Blood sugars still with elevations - Increase Lantus to 50 units at HS. Increase Lasix back to 20mg IV BID due to increasing edema to legs. Doppler legs from 04/14/17 showing no DVT - continue Lovenox 40mg SQ daily and SCD. 04/16/17 ID recommending stopping antibiotics and observing. Continue mechanical ventilation for respiratory support. FIO2 needs decreasing - pulm weaning. Secretions decreasing. Solu-Medrol at 40mg IV q 12 hours. Continue neb treatments and pulmonary toilet. Nutritional support with DH tube feeding. Potassium and sodium normal. Blood sugars still with elevations - Increase Lantus to 50 units at HS. Increase Lasix back to 20mg IV BID due to increasing edema to legs. Doppler legs from 04/14/17 showing no DVT - continue Lovenox 40mg SQ daily and SCD. Condition critical, showing improvement from the weekend. Continued CCU care needed secondary to respiratory failure and mechanical ventilation. 04/17/17 Observing off antibiotics. Continue mechanical ventilation for respiratory support. FIO2 needs decreasing - pulm weaning. Secretions decreasing. Solu-Medrol at 40mg IV daily. Continue neb treatments and pulmonary toilet. Nutritional support with DH tube feeding. Monitor potassium and sodium. Increasing TF to 65 ml/hr. Blood sugars still with elevations - Increase Lantus to 50 units at HS. Increase scheduled Novolog and sliding scale. Increase Lasix back to 20mg IV BID due to increasing edema to legs. 04/19 Observing off antibiotics. Recheck CBC. Steroids DC'd. Febrile today. Repeat cx. Continue mechanical ventilation for respiratory support. FIO2 needs decreasing - pulm holding off on weaning d/t fever. Solu-Medrol at 40mg IV daily. Continue neb treatments and pulmonary toilet. Nutritional support with DH tube feeding. Monitor potassium and sodium. TF goal is 65 ml/hr. Blood sugars may improve off solu-medrol. Monitor. Continuing Lantus, scheduled Novolog and sliding scale. Lasix at to 20mg IV BID due to edema to legs. Abdomen slightly distended. Bowels have slowed down on lower dose of Reglan. Will plan for daily suppository and continue MoM. 04/20 Vanco and cefepime restarted for fever, suspecting new pneumonia. Continue mechanical ventilation for respiratory support. FIO2 needs increasing, fever, pneumonia - pulm holding off on weaning. Solu-Medrol DC'd 04/20. Continue neb treatments and pulmonary toilet. Blood sugars trending down off solu-medrol. Monitor. Continuing Lantus, scheduled Novolog and sliding scale. Nutritional support with DH tube feeding. Monitor potassium and sodium. TF goal is 65 ml/hr. Lasix at to 20mg IV BID due to edema to legs. Abdomen slightly distended. Bowels have slowed down on lower dose of Reglan again, will increase to 10 mg iv q6 and monitor. Daily suppository and continue MoM. KUB does not show obstruction. Pharmacy out of nystatin s&s for thrush. Start Diflucan 04/21/17 Continue Vancomycin - meropenem started yesterday - suspecting new pneumonia. Continue mechanical ventilation for respiratory support. FIO2 needs with slight improvement today. Continue neb treatments and pulmonary toilet. DH not flushing - will attempt to replace. If not able to restart TF would hold routine insulin and decrease Lantus to 15 units this evening to decrease potential for hypoglycemia. TF goal is 65 ml/hr. Lasix at to 20mg IV BID due to edema to legs. Creatinine, potassium, and BP stable. Discussed with Pulm about family concern regarding potential dental abscess - worry respiratory status not stable enough at this time to risk CT scan. 04/22/17 Continue Vancomycin and meropenem - WBC with decrease, still temp elevations. Continue mechanical ventilation for respiratory support. FIO2 needs down to 40% . Continue neb treatments and pulmonary toilet. DH replaced last night. Continuing with TF. TF goal is 65 ml/hr. Will give additional 20mg IV Lasix today as intake greater than output. Creatinine and potassium normal. Dr Ibarra consulted for possible trach - plans on 04/24. 04/23/17 Continue meropenem - Vancomycin stopped by ID as no staph isolated. WBC with decrease to 12.7. Continue mechanical ventilation for respiratory support. FIO2 needs down to 40% . Trach planned for tomorrow. Continue neb treatments and pulmonary toilet. PRN Ibuprofen added to help temp elevation. TF to hold after midnight tonight. Will hold Lantus 50 units and Scheduled insulin to decrease risk for hypoglycemia. Lantus 10 units tonight x1. 04/25/17 Continue meropenem for antimicrobial coverage. WBC has normalized, temp elevations present. Continue mechanical ventilation for respiratory support. Continue neb treatments and pulmonary toilet. Tube Feeding restarted. Increase Lantus to 50 units nightly. Will give 20mEq KCL per tube today as potassium low-likely secondary to holding TF yesterday. CM checking into correctional case records supervisor acute care hospitalization - suspect slow recovery. 04/26/17 Continue meropenem for antimicrobial coverage. WBC has normalized, temp elevations present. ID recommending at least 7 days of Meropenem. Continue mechanical ventilation for respiratory support. Continue neb treatments and pulmonary toilet. Respiratory status stable. Continue with Tube Feeding restarted. Will give 30cc MOM to help stimulate bowel function due to increased residuals. Will give 40mEq KCL per tube today as potassium low. Volume status stable - will continue IV Lasix. 04/27/17 Rough evening yesterday. Had significant episode of emesis. TF held and Lantus decreased. BS stable (decreased with no FT). Minimal stool output. Continue meropenem for antimicrobial coverage. WBC has normalized. ID recommending at least 7 days of Meropenem. Continue mechanical ventilation for respiratory support. Continue neb treatments and pulmonary toilet. Respiratory status stable. Hold on tube feedings for bowel rest secondary to emesis last night. Will check KUB/Upright. Lantus held secondary to holding TF. BS stable. Start 1/2NS with 20KCl at 75 for maintenance fluids with holding TF. Restart Dulcolax suppositories for bowel stimulation. Volume status stable - will continue IV Lasix.
[2017-04-27] MEDS: 1/2 NS with KCL 20mEq 1,000 ML IV SCH (14:26)
[2017-04-27] MEDS: TERFINAFINE 1% CREAM 12 G TUBE TOP SCH ×2 (14:29→22:26)
[2017-04-27] MEDS: CHLORHEXIDINE 0.12% ORAL RINSE PO SCH ×2 (14:32→23:00)
[2017-04-27] MEDS: NYSTATIN 500,000 units/5 ml ORAL LIQUID PO SCH ×4 (14:32→22:25)
[2017-04-27] MEDS: BISACODYL 10 MG SUPPOSITORY RECTALLY SCH (15:07)
[2017-04-27] MEDS: ACETAMINOPHEN 160mg/5ml ORAL LIQUID PO PRN ×2 (15:10→20:09)
[2017-04-28] MEDS: ALBUTEROL/IPRATROPIUM 2.5mg-0.5mg/3ml NEB AEROSOL SCH ×4 (02:17→14:14)
[2017-04-28] MEDS: METOCLOPRAMIDE 10mg/2ml INJECTION IVP SCH ×3 (02:43→15:05)
[2017-04-28] MEDS: 1/2 NS with KCL 20mEq 1,000 ML IV SCH (04:14)
[2017-04-28] MEDS: MEROPENEM 1 GM in NS 100 ML IV SCH ×2 (04:16→11:30)
[2017-04-28] MEDS: IBUPROFEN 100 MG/5 ML ORAL LIQUID PO PRN (04:20)
[2017-04-28] MEDS: REFRESH CLASSIC Eye Drops 0.4ml EACH EYE PRN ×2 (08:04→15:05)
[2017-04-28] MEDS: ENOXAPARIN 40 MG/0.4 ML INJECTION SQ SCH (08:04)
[2017-04-28] MEDS: PANTOPRAZOLE 40 MG INJECTION IVP SCH (08:06)
[2017-04-28] MEDS: FentaNYL 100 MCG/2 ML INJECTION IVP PRN (08:07)
[2017-04-28] MEDS: FUROSEMIDE 20 MG/2 ML INJECTION IVP SCH (08:07)
[2017-04-28] MEDS: SALINE FLUSH 10ml SYRINGE IV PRN (08:09)
[2017-04-28] MEDS: FLUCONAZOLE 40 MG/ML PO SCH (08:45)
[2017-04-28] MEDS: BISACODYL 10 MG SUPPOSITORY RECTALLY SCH (09:00)
[2017-04-28] MEDS: NYSTATIN 500,000 units/5 ml ORAL LIQUID PO SCH ×2 (09:00→15:31)
[2017-04-28] MEDS: TERFINAFINE 1% CREAM 12 G TUBE TOP SCH (09:00)
[2017-04-28] MEDS: CHLORHEXIDINE 0.12% ORAL RINSE PO SCH (09:19)
[2017-04-28] MEDS ORDERED: ACETAMINOPHEN 650 MG/20.3 ML SOLUTION PO PRN (09:30)
[2017-04-28 13:49] VITALS: TEMP 99.4
--- NOTE | 2017-04-28 14:34 | Progress Note ---
- Date 04/28/17 Subjective: F/U: Acute respiratory failure, ARDS, Pneumonia Tolerating vent. Responsive-did give thumbs up signal. Had LARGE stool this morning. No more emesis with holding TF. Temp elevation this am. Did ask for central line to be removed and cultured secondary to temp elevations. BP/HR stable. Sugars stable - Lantus held due to not running TF. Objective Vital signs: Temperature 99.4 F 04/28/17 12:00 Pulse Rate 99 04/28/17 14:00 Respiratory Rate 24 04/28/17 14:00 Blood Pressure 120/70 04/28/17 14:00 Pulse Oximetry 93 04/28/17 14:00 Rhythm: Normal Sinus Rhythm Height/Weight/BMI: Height 1.8 m Weight 135.9 kg Body Mass Index 51.2 - Constitutional Present: well nourished, well developed, morbidly obese, cooperative - Routine HEENT Exam Head: Present: normocephalic, atraumatic Eye: Present: EOMI, PERRL - Routine Respiratory Exam Present: patient mechanically ventilated, decreased breath sounds. Absent: respiratory distress - Routine Cardiovascular Exam Present: RRR, no murmur - Routine Abdominal Exam Present: soft, non distended, non tender. Absent: normoactive bowel sounds ( Decreased ) - Routine Exam Comments: Walker present - Routine Extremities Exam Present: edema (Pedal ), pulses intact. Absent: cyanosis, clubbing - Routine Musculoskeletal Exam Musculoskeletal: Present: no clubbing or cyanosis - Routine Skin Exam Present: dry, warm - Routine Neurological Exam Present: alert, CN II-XII intact Results - Labs CBC & Chem 7: 04/28/17 04:54 04/28/17 04:54 Microbiology Results: Microbiology 04/28/17 10:23 Catheter Tip, Multilumen Catheter Tip Culture - Preliminary Culture Initiated - Results Pending 04/25/17 11:07 Peripheral/Iv Start Blood Culture - Preliminary No Growth After 3 Days 04/25/17 11:00 Peripheral/Iv Start Gram Stain - Final 04/25/17 11:00 Peripheral/Iv Start Blood Culture - Final Coag negative Staphylococcus 04/19/17 13:37 Peripheral/Iv Start Blood Culture - Final No Growth After 5 Days 04/19/17 13:26 Port/Picc Gram Stain - Final 04/19/17 13:26 Port/Picc Blood Culture - Final Coag negative Staphylococcus 04/21/17 13:33 Blood Cryptococcal Antigen (Serum) - Final 04/19/17 15:45 Sputum, Suctioned Gram Stain - Final 04/19/17 15:45 Sputum, Suctioned Sputum Culture - Final Normal Respiratory Jesus 04/13/17 14:50 Sputum, Suctioned Gram Stain - Final 04/13/17 14:50 Sputum, Suctioned Sputum Culture - Final Normal Respiratory Jesus Present 04/09/17 10:00 Port/Picc Blood Culture - Final No Growth After 5 Days 04/09/17 09:24 Port/Picc Blood Culture - Final No Growth After 5 Days 04/06/17 10:37 Port/Picc Gram Stain - Final 04/06/17 10:37 Port/Picc Blood Culture - Final Corynebacterium species 04/06/17 11:03 Port/Picc Blood Culture - Final No Growth After 5 Days 04/07/17 08:43 Nasopahrynx Gram Stain - Final 04/07/17 08:43 Nasopahrynx Nasopharyngeal Culture - Final Normal Respiratory Jesus 04/03/17 11:30 Sputum, Suctioned Gram Stain - Final 04/03/17 11:30 Sputum, Suctioned Sputum Culture - Final Normal Respiratory Jesus 04/03/17 10:38 Urine Legionella Urinary Antigen - Final 04/03/17 10:38 Urine Streptococcus pneumoniae Antigen (M - Final Assessment and Plan (1) Community acquired pneumonia Current visit: No Status: Acute Assessment and Plan: Assessment Acute hypoxic and hypercarbic respiratory failure-requiring mechanical ventilation. Intubated on 04/02/2017. Versed and fentanyl for sedation ARDS Community - acquired pneumonia-severe, requiring intubation. Levaquin initiated 04/03/2017 and Rocephin initiated 04/02/2017. Changed Rocephin to cefepime on . Sepsis secondary to pneumonia on admission Manifestations: Tachycardia, tachypnea, leukocytosis. Lactate normal on admission CODE BLUE/bradycardia versus short lasting asystole on 04/06/2017-patient received chest compressions 3 - EKG and troponin post event were normal Elevated d-dimer 555 - Lovenox therapeutic dose initiated 04/06/2017. Blood culture one of 2 on 04/06/2027 positive for corynebacterium -discussed with Dr. Johnson. This is most likely contaminant. Anasarca - improving; significant decrease of fluid since admit Echocardiogram revealed normal EF, left ventricular hypertrophy, PA pressure 41 with mild pulmonary hypertension (echo 04/06/2017 unchanged on recheck)-BNP has been normal. Diabetes Mellitus Type 2 - A1C 7.1 on admission (new diagnosis)-on Lantus, scheduled NovoLog and sliding scale insulin Possible COPD Probable obstructive sleep apnea Chronic back pain with high-dose ibuprofen and Tylenol use prior to admission Tinea corporis/ringworm? Tobacco dependence Hyperkalemia with potassium up to 5.5 of undetermined etiology (Not POA). Possible sinusitis right nears with copious thick nasal secretions - C/S showing normal jesus Mild hypernatremia (Not POA) Constipation Morbid obesity-BMI 42.0 Plan Did remove central line and sent for culture secondary to temp elevations. Peripheral site obtained. No further vomiting since TF held. Did pass large stool. KUB/Upright overread from this morning pending, but looks like significant stool burden in left colon. Tolerating vent. Settings: VC - TV: 500 Rate 15 PEEP 6 FiO2 40%. Sugars stable - Lantus, routine insulin held as TF on hold. Arrangements made for transfer to [facility] for senior care vent care. Will discharge to [facility]. See orders for details. Case discussed with CCU nursing and family. Time spent with patient care and discharge greater than 30 minutes. DVT Prophylaxis: SCD's, Lovenox Resuscitation Status: Full Code - Physician Narrative Physician: Wally Lewis MD Narrative: Date: 04/28/17 Time: 1430 Hospital Course Summary Disclaimer: The visit summary below is not to be considered part of the above Progress Note. Hospital Course: Assessment Respiratory insufficiency with hypoxia Sepsis secondary to pneumonia Manifestations: Tachycardia, tachypnea, leukocytosis Community-acquired pneumonia Anasarca Morbid obesity-BMI 42.0 Hyperglycemia-POA Tinea corporis Tobacco dependence 04/02/17 Hospital admission Admit to inpatient status under the care of the hospitalist service, Dr. Lewis attending. It is expected that his stay will exceed 2 overnights given his sepsis secondary to pneumonia and overall condition. SCDs and Lovenox for DVT prophylaxis Urinalysis for laboratory completeness. Repeat CBC and BMP in am to follow leukocytosis, renal function and electrolytes. Schedule echocardiogram to evaluate cardiac structure and function given his anasarca and dyspnea. Oxygen, DuoNeb treatments, Acapella, and guaifenesin for respiratory symptoms. Continue Rocephin and Zithromax initiated and the emergency room. Blood cultures were drawn prior to antibiotic initiation. RT consult tobacco cessation. Terbinafine topically for his tinea corporis Patient wishes to be a full code. Case discussed with Dr. Lewis. Case management will need to assist in finding patient a PCP. 04/04/17 12:03 Plan The patient continues to require mechanical ventilation and is on 100% FiO2 regarding his ARDS and pneumonia. Continue ventilator support - Dr. Pineda is following. His help is greatly appreciated. Continue Levaquin initiated 04/03/2017 and Rocephin initiated 04/02/2017 Continue Solu-Medrol Discussed with Dr. Pineda, will change Lovenox to prophylactic dose. Venous Doppler of the legs were negative for DVT. No signs of right heart strain on echocardiogram. Advance tube feedings Nutren luminary 1.5 to goal of 70 ML's per hour. Start free water 400 ML's every 8 hours. DC IV fluids Vishal blood pressure off of IV fluids. May need to initiate antihypertensive Start Lantus 10 units subcutaneous daily. Increase to medium dose sliding scale insulin. Continue Lasix 40 mg IV every 12. Patient is diuresing well. Check CBC and renal panel tomorrow. Chest x-ray tomorrow. Assess with Dr. Pineda, the patient's significant other, and the patient's nurse. 04/05/17 09:31 Plan The patient continues to require mechanical ventilation and is now on 95% FiO2 regarding his ARDS and pneumonia. Continue ventilator support per Dr. Pineda Continue Levaquin initiated 04/03/2017 and Rocephin initiated 04/02/2017. Continue Solu-Medrol Regarding hyperkalemia, will try to change to feeding to a renal tube feeds. Check ABG. (7.32/79/103 on 95% FiO2) Recheck basic metabolic profile later today. May need to increase fluids followed by diuresis for hyperkalemia Increase Lantus to 20 units subcutaneous daily for hyperglycemia. Increase sliding scale insulin to high dose Start Reglan and Dulcolax suppositories to stimulate GI tract. Decrease tube feed rate to 50 ML's for now. Greater than 40 minutes critical care time. 04/07/2017 Plan The patient continues to require mechanical ventilation and FiO2 100% regarding his ARDS and pneumonia. The patient has tolerated discontinuation of propofol and initiation of Versed. The patient is tolerating his tube feedings. Will advance as tolerated. Will increase free water to 200 ML's every 4 hours and decrease Lasix to 20 mg IV every 12 regarding his elated sodium. Continue to monitor blood pressure closely. Continue Levaquin initiated 04/03/2017 and Rocephin initiated 04/02/2017. Continue Solu-Medrol Regarding hyperkalemia-is resolved. Continue renal tube feeds Continue Reglan and Dulcolax suppositories to stimulate GI tract. Greater than 45 minutes of critical care time spent seeing and evaluating the patient. The patient's brother was updated. 04/08/17 09:49 Plan Overall, the patient is stable. He is diuresing well. Weight is down approximately 22 kg over the past 1 week. He has been on the ventilator for one week now. FiO2 turned down to 95% this morning. Consulted Dr. Johnson regarding positive blood culture and antibiotic recommendations The patient continues to require mechanical ventilation regarding his ARDS and pneumonia. FiO2 down to 95% this morning The patient is tolerating his tube feedings. Will advance as tolerated to goal. Will increase free water to 250 ML's every 4 hours. Continue Lasix 20 mg IV every 12. Continue to monitor blood pressure closely. Continue Levaquin initiated 04/03/2017 and Rocephin initiated 04/02/2017. Continue Solu-Medrol and breathing treatments Regarding hyperkalemia- Continue renal tube feeds Continue Reglan and Dulcolax suppositories to stimulate GI tract. Regarding possible mild upper GI bleed, will Gastric occult NG drainage. Hold Lovenox for now. Greater than 45 minutes of critical care time spent seeing and evaluating the patient. 04/09/17 Overall, the patient is improving. FiO2 is now down to 70%. The patient appears to be nearly euvolemic at this time. We'll continue Lasix. Weight is down approximately 22 kg over the past [address] Johnson recommends approximately 10 days of broad-spectrum antibiotics for his pneumonia. She recommended discontinuation of vancomycin today with corynebacterium found in one of 2 blood cultures on Jadiel 24 most likely being a contaminant. Currently at goal rate on tube feedings. He is on a renal formulation because of hyperkalemia. May need to increase free water further if sodium does not improving. Continue Levaquin initiated 04/03/2017 and Rocephin initiated 04/02/2017. Rocephin discontinued on 04/06/2017 and cefepime started. Vancomycin started and discontinued on 04/09/2017 Continue Solu-Medrol and breathing treatments Add MiraLAX for constipation Continue Lovenox for DVT prophylaxis (gastric occult from NG drainage was negative) 04/10/17 Debbie Continue with levofloxacin and cefepime for antimicrobial coverage - ID recommending an approximate 10 day course. Will continue with Solu-Medrol at 40mg IV q 8 hours -started on 03/26/17. Potentially could start to decrease. Continue neb treatments and pulmonary toilet. Nutritional support with DH tube feeding. Potassium normal. LFT with gradual increase-potential fatty liver secondary to continuous TF. Continue Lasix. Weight is down approximately 22 kg over the past 1 week. Renal status stable. Blood sugars showing persistent elevation in the low to mid 200's. Will increase Lantus to 34 units at night. 04/11/17 Continue with levofloxacin and cefepime for antimicrobial coverage - ID recommending an approximate 10 day course. With increased temp, persistent leukocytosis, steroid and antibiotic use will start Diflucan 200mg IV daily. Continue mechanical ventilation for respiratory support. Pulm decreased Solu-Medrol to 40mg IV q 12 hours. Continue neb treatments and pulmonary toilet. Slowly able to wean down FIO2. Nutritional support with DH tube feeding. Continue Lasix 20 mg IV BID. Creatinine and BP stable. Potassium with increase to 5.4 this am. Blood sugars still with elevations - will continue current regimen, watching for decrease with decreased Solu-Medrol. 04/12/17 Continue with levofloxacin and cefepime for antimicrobial coverage - ID recommending an approximate 10 day course. Diflucan 200mg IV daily started 04/11/17. Continue mechanical ventilation for respiratory support - Solu-Medrol at 40mg IV q 12 hours. O2 needs increased today - likely mucous plugging. Creatinine with increase to 1.1. Edema much improved. Will decrease Lasix to 20mg daily to minimize overdiuresis. Blood sugars still with elevations - Increase Lantus to 38 units at HS. 04/13/17 Continue with levofloxacin and cefepime for antimicrobial coverage - ID recommending an approximate 10 day course. Diflucan 200mg IV daily started 04/11/17. Vancomycin started on 04/12/17 secondary to temp elevations. Continue mechanical ventilation for respiratory support. Increasing FIO2 - needing 100%. Sputum culture ordered by Dr Pineda. Solu-Medrol at 40mg IV q 12 hours. Continue neb treatments and pulmonary toilet. Nutritional support with DH tube feeding. Creatinine did decrease to 0.8. With increasing oxygen needs and increased intake as compared to output past 2 days will give 20mg IV Lasix. Blood sugars still with elevations - Increase Lantus to 42 units at HS. 04/14/17 Continue with levofloxacin and cefepime for antimicrobial coverage Diflucan 200mg IV daily started 04/11/17. Vancomycin started on 04/12/17 secondary to temp elevations. Continue mechanical ventilation for respiratory support. Sputum culture ordered 04/13 with results pending. Solu-Medrol at 40mg IV q 12 hours. Nutritional support with DH tube feeding. Potassium and sodium normal. Blood sugars still with elevations - Increase Lantus to 46 units at HS. Doppler legs pending - ? DVT as more pedal edema present. 04/15/17 Continue with levofloxacin and cefepime for antimicrobial coverage - ID recommending an approximate 10 day course. Diflucan 200mg IV daily started 04/11/17. Vancomycin started on 04/12/17 secondary to temp elevations. Continue mechanical ventilation for respiratory support. FIO2 needs decreasing - pulm weaning. Secretions decreasing. Sputum culture ordered 04/13 with normal respiratory jessu. Solu-Medrol at 40mg IV q 12 hours. Continue neb treatments and pulmonary toilet. Nutritional support with DH tube feeding. Potassium and sodium normal. Blood sugars still with elevations - Increase Lantus to 50 units at HS. Increase Lasix back to 20mg IV BID due to increasing edema to legs. Doppler legs from 04/14/17 showing no DVT - continue Lovenox 40mg SQ daily and SCD. 04/16/17 ID recommending stopping antibiotics and observing. Continue mechanical ventilation for respiratory support. FIO2 needs decreasing - pulm weaning. Secretions decreasing. Solu-Medrol at 40mg IV q 12 hours. Continue neb treatments and pulmonary toilet. Nutritional support with DH tube feeding. Potassium and sodium normal. Blood sugars still with elevations - Increase Lantus to 50 units at HS. Increase Lasix back to 20mg IV BID due to increasing edema to legs. Doppler legs from 04/14/17 showing no DVT - continue Lovenox 40mg SQ daily and SCD. Condition critical, showing improvement from the weekend. Continued CCU care needed secondary to respiratory failure and mechanical ventilation. 04/17/17 Observing off antibiotics. Continue mechanical ventilation for respiratory support. FIO2 needs decreasing - pulm weaning. Secretions decreasing. Solu-Medrol at 40mg IV daily. Continue neb treatments and pulmonary toilet. Nutritional support with DH tube feeding. Monitor potassium and sodium. Increasing TF to 65 ml/hr. Blood sugars still with elevations - Increase Lantus to 50 units at HS. Increase scheduled Novolog and sliding scale. Increase Lasix back to 20mg IV BID due to increasing edema to legs. 04/19 Observing off antibiotics. Recheck CBC. Steroids DC'd. Febrile today. Repeat cx. Continue mechanical ventilation for respiratory support. FIO2 needs decreasing - pulm holding off on weaning d/t fever. Solu-Medrol at 40mg IV daily. Continue neb treatments and pulmonary toilet. Nutritional support with DH tube feeding. Monitor potassium and sodium. TF goal is 65 ml/hr. Blood sugars may improve off solu-medrol. Monitor. Continuing Lantus, scheduled Novolog and sliding scale. Lasix at to 20mg IV BID due to edema to legs. Abdomen slightly distended. Bowels have slowed down on lower dose of Reglan. Will plan for daily suppository and continue MoM. 04/20 Vanco and cefepime restarted for fever, suspecting new pneumonia. Continue mechanical ventilation for respiratory support. FIO2 needs increasing, fever, pneumonia - pulm holding off on weaning. Solu-Medrol DC'd 04/20. Continue neb treatments and pulmonary toilet. Blood sugars trending down off solu-medrol. Monitor. Continuing Lantus, scheduled Novolog and sliding scale. Nutritional support with DH tube feeding. Monitor potassium and sodium. TF goal is 65 ml/hr. Lasix at to 20mg IV BID due to edema to legs. Abdomen slightly distended. Bowels have slowed down on lower dose of Reglan again, will increase to 10 mg iv q6 and monitor. Daily suppository and continue MoM. KUB does not show obstruction. Pharmacy out of nystatin s&s for thrush. Start Diflucan 04/21/17 Continue Vancomycin - meropenem started yesterday - suspecting new pneumonia. Continue mechanical ventilation for respiratory support. FIO2 needs with slight improvement today. Continue neb treatments and pulmonary toilet. DH not flushing - will attempt to replace. If not able to restart TF would hold routine insulin and decrease Lantus to 15 units this evening to decrease potential for hypoglycemia. TF goal is 65 ml/hr. Lasix at to 20mg IV BID due to edema to legs. Creatinine, potassium, and BP stable. Discussed with Pulm about family concern regarding potential dental abscess - worry respiratory status not stable enough at this time to risk CT scan. 04/22/17 Continue Vancomycin and meropenem - WBC with decrease, still temp elevations. Continue mechanical ventilation for respiratory support. FIO2 needs down to 40% . Continue neb treatments and pulmonary toilet. DH replaced last night. Continuing with TF. TF goal is 65 ml/hr. Will give additional 20mg IV Lasix today as intake greater than output. Creatinine and potassium normal. Dr Ibarra consulted for possible trach - plans on 04/24. 04/23/17 Continue meropenem - Vancomycin stopped by ID as no staph isolated. WBC with decrease to 12.7. Continue mechanical ventilation for respiratory support. FIO2 needs down to 40% . Trach planned for tomorrow. Continue neb treatments and pulmonary toilet. PRN Ibuprofen added to help temp elevation. TF to hold after midnight tonight. Will hold Lantus 50 units and Scheduled insulin to decrease risk for hypoglycemia. Lantus 10 units tonight x1. 04/24/17 OP day - Trach and feeding tube Continue meropenem for antimicrobial coverage Continue mechanical ventilation for respiratory support. Trach performed successfully. Continue neb treatments and pulmonary toilet. Feeding tube placed. Able to restart tube feeding this evening at 2100. Will restart Lantus at 40 units tonight. Can stop IVF initiated with surgery once TF started. Start TF at 60cc/hr. 04/25/17 Continue meropenem for antimicrobial coverage. WBC has normalized, temp elevations present. Continue mechanical ventilation for respiratory support. Continue neb treatments and pulmonary toilet. Tube Feeding restarted. Increase Lantus to 50 units nightly. Will give 20mEq KCL per tube today as potassium low-likely secondary to holding TF yesterday. CM checking into intermediate manager acute care hospitalization - suspect slow recovery. 04/26/17 Continue meropenem for antimicrobial coverage. WBC has normalized, temp elevations present. ID recommending at least 7 days of Meropenem. Continue mechanical ventilation for respiratory support. Continue neb treatments and pulmonary toilet. Respiratory status stable. Continue with Tube Feeding restarted. Will give 30cc MOM to help stimulate bowel function due to increased residuals. Will give 40mEq KCL per tube today as potassium low. Volume status stable - will continue IV Lasix. 04/27/17 Rough evening yesterday. Had significant episode of emesis. TF held and Lantus decreased. BS stable (decreased with no FT). Minimal stool output. Continue meropenem for antimicrobial coverage. WBC has normalized. ID recommending at least 7 days of Meropenem. Continue mechanical ventilation for respiratory support. Continue neb treatments and pulmonary toilet. Respiratory status stable. Hold on tube feedings for bowel rest secondary to emesis last night. Will check KUB/Upright. Lantus held secondary to holding TF. BS stable. Start 1/2NS with 20KCl at 75 for maintenance fluids with holding TF. Restart Dulcolax suppositories for bowel stimulation. Volume status stable - will continue IV Lasix. 04/28/17 Did remove central line and sent for culture secondary to temp elevations. Peripheral site obtained. No further vomiting since TF held. Did pass large stool. KUB/Upright overread from this morning pending, but looks like significant stool burden in left colon. Tolerating vent. Settings: VC - TV: 500 Rate 15 PEEP 6 FiO2 40%. Sugars stable - Lantus, routine insulin held as TF on hold. Arrangements made for transfer to [facility] for intermediate manager vent care. Will discharge to [facility]. See orders for details.
--- NOTE | 2017-04-28 14:52 | XRay Report ---
EXAM: XR abdomen 2V LOCATION OF DICTATION: [facility] HISTORY: N/V COMPARISON: No prior studies available for comparison. TECHNIQUE: FINDINGS: Nasoenteric catheter extends in the stomach with the tip overlying the region the gastric antrum. There is a PEG tube also in place overlying the gastric body. Bowel gas pattern is within normal limits without evidence for bowel obstruction. Mild fecal retention is demonstrated. Lung bases demonstrate atelectasis. IMPRESSION: 1. Nasoenteric catheter in place the tip overlying the region of the gastric antrum. PEG tube overlies the gastric body. 2. No clear evidence for bowel obstruction. Mild fecal retention. .
--- NOTE | 2017-04-28 15:28 | Discharge Summary ---
Discharge Information Date of admission: 04/02/17 11:44 Anticipated date of discharge: 04/28/17 Attending Physician: Wally Lewis MD Primary care physician: NONE Consults: Training Consultant Consult Diabetic Diagnosis: E11.65 Uncontrolled T2 DM Diabetic Training: Carb Counting Disease Process Monitoring Diabetes Comment: new onset 04/02/17 Consult to Anesthesiology: Intubation 04/03/17 Physician Consult: Artur Pineda Reason For Exam: Hypercapnic/hypoxic resp failure 04/03/17 Dietary Consult Reason For Exam: tube feed recommendations 04/06/17 Physician Consult: Ebenezer Mauricio Reason For Exam: code blue 04/08/17 Physician Consult: Nitza Johnson Reason For Exam: antibiotic recs 04/22/17 Physician Consult: Artur Ibarra Reason For Exam: tracheostomy and PEG - Discharge Diagnosis (1) Community acquired pneumonia Status: Acute Admitting diagnosis Acute hypoxic respiratory failure Sepsis secondary to pneumonia Discharge diagnosis Acute hypoxic and hypercarbic respiratory failure-requiring mechanical ventilation. Intubated on 04/02/2017. Versed and fentanyl for sedation Associated conditions and complications ARDS Community - acquired pneumonia-severe, requiring intubation. Levaquin initiated 04/03/2017 and Rocephin initiated 04/02/2017. Changed Rocephin to cefepime on . Sepsis secondary to pneumonia on admission Manifestations: Tachycardia, tachypnea, leukocytosis. Lactate normal on admission CODE BLUE/bradycardia versus short lasting asystole on 04/06/2017-patient received chest compressions 3 - EKG and troponin post event were normal Elevated d-dimer 555 - Lovenox therapeutic dose initiated 04/06/2017. Blood culture one of 2 on 04/06/2027 positive for corynebacterium -discussed with Dr. Johnson. This is most likely contaminant. Anasarca - improving; significant decrease of fluid since admit Echocardiogram revealed normal EF, left ventricular hypertrophy, PA pressure 41 with mild pulmonary hypertension (echo 04/06/2017 unchanged on recheck)-BNP has been normal. Diabetes Mellitus Type 2 - A1C 7.1 on admission (new diagnosis)-on Lantus, scheduled NovoLog and sliding scale insulin Possible COPD Probable obstructive sleep apnea Chronic back pain with high-dose ibuprofen and Tylenol use prior to admission Tinea corporis/ringworm? Tobacco dependence Hyperkalemia with potassium up to 5.5 of undetermined etiology (Not POA). Possible sinusitis right nears with copious thick nasal secretions - C/S showing normal jesus Mild hypernatremia (Not POA) Constipation Morbid obesity-BMI 42.0 - Procedures Procedures: Date of Procedure: 04/24/17 Surgeon: Stacey [employer] Teacher: Carlos Postoperative Diagnosis: ARDS respiratory failure, High risk malnutrion, inability to swallow, intubated Procedure: EGD with placement of PEG. Creation of Tracheostomy - Laboratory Labs: 04/28/17 04:54 04/28/17 04:54 - Microbiology Microbiology 04/28/17 10:23 Catheter Tip, Multilumen Catheter Tip Culture - Preliminary Culture Initiated - Results Pending 04/25/17 11:07 Peripheral/Iv Start Blood Culture - Preliminary No Growth After 3 Days 04/25/17 11:00 Peripheral/Iv Start Gram Stain - Final 04/25/17 11:00 Peripheral/Iv Start Blood Culture - Final Coag negative Staphylococcus 04/19/17 13:37 Peripheral/Iv Start Blood Culture - Final No Growth After 5 Days 04/19/17 13:26 Port/Picc Gram Stain - Final 04/19/17 13:26 Port/Picc Blood Culture - Final Coag negative Staphylococcus 04/21/17 13:33 Blood Cryptococcal Antigen (Serum) - Final 04/19/17 15:45 Sputum, Suctioned Gram Stain - Final 04/19/17 15:45 Sputum, Suctioned Sputum Culture - Final Normal Respiratory Jesus 04/13/17 14:50 Sputum, Suctioned Gram Stain - Final 04/13/17 14:50 Sputum, Suctioned Sputum Culture - Final Normal Respiratory Jesus Present 04/09/17 10:00 Port/Picc Blood Culture - Final No Growth After 5 Days 04/09/17 09:24 Port/Picc Blood Culture - Final No Growth After 5 Days 04/06/17 10:37 Port/Picc Gram Stain - Final 04/06/17 10:37 Port/Picc Blood Culture - Final Corynebacterium species 04/06/17 11:03 Port/Picc Blood Culture - Final No Growth After 5 Days 04/07/17 08:43 Nasopahrynx Gram Stain - Final 04/07/17 08:43 Nasopahrynx Nasopharyngeal Culture - Final Normal Respiratory Jesus 04/03/17 11:30 Sputum, Suctioned Gram Stain - Final 04/03/17 11:30 Sputum, Suctioned Sputum Culture - Final Normal Respiratory Jesus 04/03/17 10:38 Urine Legionella Urinary Antigen - Final 04/03/17 10:38 Urine Streptococcus pneumoniae Antigen (M - Final - Radiology Radiology: Date of Exam: 04/02/17 PROCEDURE: XR chest 1V Findings: The lungs are hypoinflated. Elevated left hemidiaphragm. Hazy airspace disease in both lower lung dorman, left greater than right. No pneumothorax. Cardiac silhouette is partially obscured by the elevated diaphragm and appears at the upper limits of normal in size. Mediastinal contours are within normal limits. Impression: Lower lobe pneumonia, worse on the left. Date of Exam: 04/03/17 Type of Exam: US ECHO doppler complete Left atrial dimension is increased. Left ventricular end-diastolic dimension is normal. Left ventricle wall thickness is increased. LV systolic function is normal with ejection fraction of 62%. Right atrium is normal. Right ventricle is normal. Aortic root dimension is normal. Mitral valve is morphologically normal with trace of mitral regurgitation aorta. Aortic valve appears to be normal. Tricuspid valve shows trace of tricuspid regurgitation with mild pulmonary hypertension with estimated pulmonary artery systolic pressure of 41. Pulmonary valve shows no pulmonary insufficiency. There is no pericardial effusion. IMPRESSION 1. Normal LV systolic function with ejection fraction of 62%. 2. Left atrial dilation. 3. Left ventricular hypertrophy. 4. Trace of mitral regurgitation. 5. Trace of tricuspid regurgitation with mild pulmonary hypertension with estimated pulmonary artery systolic pressure of 41. Date of Exam: 04/03/17 PROCEDURE: US venous doppler LE BI Findings: There is no evidence for acute deep venous thrombosis in either thigh. Impression: No evidence of acute DVT in either lower limb. History of Present Illness HPI: Patient is a 42-year-old male who initially presented to the emergency room earlier today with with shortness of breath and pain in the left side of his back. At that time he stated that he's had some runny and stuffy nose this past week. He really hasn't had much of a cough other than his chronic smoker's cough. This morning he woke up and he coughed and had a "pinching" pain to the back and this prompted him to come in. He also reports that over the last 2-4 weeks she's had significant swelling to his abdomen and lower extremities. He denies history of asthma. Reports he had pneumonia 10 years ago. Patient was seen in the emergency room and admitted; however, before patient was brought to the floor, he left AMA. He returned to the emergency room approximately an hour after he left with oxygen saturation of 66% and respiration rate 58. He is agreeable to admission at this point. He was seen in his room on his second admission. He is in significantly more distress than he was when I saw him in the emergency room. He is currently on 10 L on a nonrebreather. BiPAP has been ordered. He reports the pain in his left back and on his left beltline is back and is a "pinching" feeling. Hurts worse if he takes a deep breath. He is anxious. For complete details of the H&P refer to that document. Objective Vital signs: Temperature 99.4 F 04/28/17 12:00 Pulse Rate 101 H 04/28/17 14:15 Respiratory Rate 26 H 04/28/17 14:15 Blood Pressure 120/70 04/28/17 14:00 Pulse Oximetry 95 04/28/17 14:15 Rhythm: Normal Sinus Rhythm Height/Weight/BMI: Height 1.8 m Weight 135.9 kg Body Mass Index 51.2 Hospital Course This is a general summary of the patient's hospital course. For more details refer to the complete medical record. Hospital course: Assessment Respiratory insufficiency with hypoxia Sepsis secondary to pneumonia Manifestations: Tachycardia, tachypnea, leukocytosis Community-acquired pneumonia Anasarca Morbid obesity-BMI 42.0 Hyperglycemia-POA Tinea corporis Tobacco dependence 04/02/17 Hospital admission Admit to inpatient status under the care of the hospitalist service, Dr. Lewis attending. It is expected that his stay will exceed 2 overnights given his sepsis secondary to pneumonia and overall condition. SCDs and Lovenox for DVT prophylaxis Urinalysis for laboratory completeness. Repeat CBC and BMP in am to follow leukocytosis, renal function and electrolytes. Schedule echocardiogram to evaluate cardiac structure and function given his anasarca and dyspnea. Oxygen, DuoNeb treatments, Acapella, and guaifenesin for respiratory symptoms. Continue Rocephin and Zithromax initiated and the emergency room. Blood cultures were drawn prior to antibiotic initiation. RT consult tobacco cessation. Terbinafine topically for his tinea corporis Patient wishes to be a full code. Case discussed with Dr. Lewis. Case management will need to assist in finding patient a PCP. 04/04/17 12:03 Plan The patient continues to require mechanical ventilation and is on 100% FiO2 regarding his ARDS and pneumonia. Continue ventilator support - Dr. Pineda is following. His help is greatly appreciated. Continue Levaquin initiated 04/03/2017 and Rocephin initiated 04/02/2017 Continue Solu-Medrol Discussed with Dr. Pineda, will change Lovenox to prophylactic dose. Venous Doppler of the legs were negative for DVT. No signs of right heart strain on echocardiogram. Advance tube feedings Nutren luminary 1.5 to goal of 70 ML's per hour. Start free water 400 ML's every 8 hours. DC IV fluids Vishal blood pressure off of IV fluids. May need to initiate antihypertensive Start Lantus 10 units subcutaneous daily. Increase to medium dose sliding scale insulin. Continue Lasix 40 mg IV every 12. Patient is diuresing well. Check CBC and renal panel tomorrow. Chest x-ray tomorrow. Assess with Dr. Pineda, the patient's significant other, and the patient's nurse. 04/05/17 09:31 Plan The patient continues to require mechanical ventilation and is now on 95% FiO2 regarding his ARDS and pneumonia. Continue ventilator support per Dr. Pineda Continue Levaquin initiated 04/03/2017 and Rocephin initiated 04/02/2017. Continue Solu-Medrol Regarding hyperkalemia, will try to change to feeding to a renal tube feeds. Check ABG. (7.32/79/103 on 95% FiO2) Recheck basic metabolic profile later today. May need to increase fluids followed by diuresis for hyperkalemia Increase Lantus to 20 units subcutaneous daily for hyperglycemia. Increase sliding scale insulin to high dose Start Reglan and Dulcolax suppositories to stimulate GI tract. Decrease tube feed rate to 50 ML's for now. Greater than 40 minutes critical care time. 04/07/2017 Plan The patient continues to require mechanical ventilation and FiO2 100% regarding his ARDS and pneumonia. The patient has tolerated discontinuation of propofol and initiation of Versed. The patient is tolerating his tube feedings. Will advance as tolerated. Will increase free water to 200 ML's every 4 hours and decrease Lasix to 20 mg IV every 12 regarding his elated sodium. Continue to monitor blood pressure closely. Continue Levaquin initiated 04/03/2017 and Rocephin initiated 04/02/2017. Continue Solu-Medrol Regarding hyperkalemia-is resolved. Continue renal tube feeds Continue Reglan and Dulcolax suppositories to stimulate GI tract. Greater than 45 minutes of critical care time spent seeing and evaluating the patient. The patient's brother was updated. 04/08/17 09:49 Plan Overall, the patient is stable. He is diuresing well. Weight is down approximately 22 kg over the past 1 week. He has been on the ventilator for one week now. FiO2 turned down to 95% this morning. Consulted Dr. Johnson regarding positive blood culture and antibiotic recommendations The patient continues to require mechanical ventilation regarding his ARDS and pneumonia. FiO2 down to 95% this morning The patient is tolerating his tube feedings. Will advance as tolerated to goal. Will increase free water to 250 ML's every 4 hours. Continue Lasix 20 mg IV every 12. Continue to monitor blood pressure closely. Continue Levaquin initiated 04/03/2017 and Rocephin initiated 04/02/2017. Continue Solu-Medrol and breathing treatments Regarding hyperkalemia- Continue renal tube feeds Continue Reglan and Dulcolax suppositories to stimulate GI tract. Regarding possible mild upper GI bleed, will Gastric occult NG drainage. Hold Lovenox for now. Greater than 45 minutes of critical care time spent seeing and evaluating the patient. 04/09/17 Overall, the patient is improving. FiO2 is now down to 70%. The patient appears to be nearly euvolemic at this time. We'll continue Lasix. Weight is down approximately 22 kg over the past [address] Johnson recommends approximately 10 days of broad-spectrum antibiotics for his pneumonia. She recommended discontinuation of vancomycin today with corynebacterium found in one of 2 blood cultures on April 06 most likely being a contaminant. Currently at goal rate on tube feedings. He is on a renal formulation because of hyperkalemia. May need to increase free water further if sodium does not improving. Continue Levaquin initiated 04/03/2017 and Rocephin initiated 04/02/2017. Rocephin discontinued on 04/06/2017 and cefepime started. Vancomycin started and discontinued on 04/09/2017 Continue Solu-Medrol and breathing treatments Add MiraLAX for constipation Continue Lovenox for DVT prophylaxis (gastric occult from NG drainage was negative) 04/10/17 Debbie Continue with levofloxacin and cefepime for antimicrobial coverage - ID recommending an approximate 10 day course. Will continue with Solu-Medrol at 40mg IV q 8 hours -started on 03/26/17. Potentially could start to decrease. Continue neb treatments and pulmonary toilet. Nutritional support with DH tube feeding. Potassium normal. LFT with gradual increase-potential fatty liver secondary to continuous TF. Continue Lasix. Weight is down approximately 22 kg over the past 1 week. Renal status stable. Blood sugars showing persistent elevation in the low to mid 200's. Will increase Lantus to 34 units at night. 04/11/17 Continue with levofloxacin and cefepime for antimicrobial coverage - ID recommending an approximate 10 day course. With increased temp, persistent leukocytosis, steroid and antibiotic use will start Diflucan 200mg IV daily. Continue mechanical ventilation for respiratory support. Pulm decreased Solu-Medrol to 40mg IV q 12 hours. Continue neb treatments and pulmonary toilet. Slowly able to wean down FIO2. Nutritional support with DH tube feeding. Continue Lasix 20 mg IV BID. Creatinine and BP stable. Potassium with increase to 5.4 this am. Blood sugars still with elevations - will continue current regimen, watching for decrease with decreased Solu-Medrol. 04/12/17 Continue with levofloxacin and cefepime for antimicrobial coverage - ID recommending an approximate 10 day course. Diflucan 200mg IV daily started 04/11/17. Continue mechanical ventilation for respiratory support - Solu-Medrol at 40mg IV q 12 hours. O2 needs increased today - likely mucous plugging. Creatinine with increase to 1.1. Edema much improved. Will decrease Lasix to 20mg daily to minimize overdiuresis. Blood sugars still with elevations - Increase Lantus to 38 units at HS. 04/13/17 Continue with levofloxacin and cefepime for antimicrobial coverage - ID recommending an approximate 10 day course. Diflucan 200mg IV daily started 04/11/17. Vancomycin started on 04/12/17 secondary to temp elevations. Continue mechanical ventilation for respiratory support. Increasing FIO2 - needing 100%. Sputum culture ordered by Dr Pineda. Solu-Medrol at 40mg IV q 12 hours. Continue neb treatments and pulmonary toilet. Nutritional support with DH tube feeding. Creatinine did decrease to 0.8. With increasing oxygen needs and increased intake as compared to output past 2 days will give 20mg IV Lasix. Blood sugars still with elevations - Increase Lantus to 42 units at HS. 04/14/17 Continue with levofloxacin and cefepime for antimicrobial coverage Diflucan 200mg IV daily started 04/11/17. Vancomycin started on 04/12/17 secondary to temp elevations. Continue mechanical ventilation for respiratory support. Sputum culture ordered 04/13 with results pending. Solu-Medrol at 40mg IV q 12 hours. Nutritional support with DH tube feeding. Potassium and sodium normal. Blood sugars still with elevations - Increase Lantus to 46 units at HS. Doppler legs pending - ? DVT as more pedal edema present. 04/15/17 Continue with levofloxacin and cefepime for antimicrobial coverage - ID recommending an approximate 10 day course. Diflucan 200mg IV daily started 04/11/17. Vancomycin started on 04/12/17 secondary to temp elevations. Continue mechanical ventilation for respiratory support. FIO2 needs decreasing - pulm weaning. Secretions decreasing. Sputum culture ordered 04/13 with normal respiratory jesus. Solu-Medrol at 40mg IV q 12 hours. Continue neb treatments and pulmonary toilet. Nutritional support with DH tube feeding. Potassium and sodium normal. Blood sugars still with elevations - Increase Lantus to 50 units at HS. Increase Lasix back to 20mg IV BID due to increasing edema to legs. Doppler legs from 04/14/17 showing no DVT - continue Lovenox 40mg SQ daily and SCD. 04/16/17 ID recommending stopping antibiotics and observing. Continue mechanical ventilation for respiratory support. FIO2 needs decreasing - pulm weaning. Secretions decreasing. Solu-Medrol at 40mg IV q 12 hours. Continue neb treatments and pulmonary toilet. Nutritional support with DH tube feeding. Potassium and sodium normal. Blood sugars still with elevations - Increase Lantus to 50 units at HS. Increase Lasix back to 20mg IV BID due to increasing edema to legs. Doppler legs from 04/14/17 showing no DVT - continue Lovenox 40mg SQ daily and SCD. Condition critical, showing improvement from the weekend. Continued CCU care needed secondary to respiratory failure and mechanical ventilation. 04/17/17 Observing off antibiotics. Continue mechanical ventilation for respiratory support. FIO2 needs decreasing - pulm weaning. Secretions decreasing. Solu-Medrol at 40mg IV daily. Continue neb treatments and pulmonary toilet. Nutritional support with DH tube feeding. Monitor potassium and sodium. Increasing TF to 65 ml/hr. Blood sugars still with elevations - Increase Lantus to 50 units at HS. Increase scheduled Novolog and sliding scale. Increase Lasix back to 20mg IV BID due to increasing edema to legs. 04/19 Observing off antibiotics. Recheck CBC. Steroids DC'd. Febrile today. Repeat cx. Continue mechanical ventilation for respiratory support. FIO2 needs decreasing - pulm holding off on weaning d/t fever. Solu-Medrol at 40mg IV daily. Continue neb treatments and pulmonary toilet. Nutritional support with DH tube feeding. Monitor potassium and sodium. TF goal is 65 ml/hr. Blood sugars may improve off solu-medrol. Monitor. Continuing Lantus, scheduled Novolog and sliding scale. Lasix at to 20mg IV BID due to edema to legs. Abdomen slightly distended. Bowels have slowed down on lower dose of Reglan. Will plan for daily suppository and continue MoM. 04/20 Vanco and cefepime restarted for fever, suspecting new pneumonia. Continue mechanical ventilation for respiratory support. FIO2 needs increasing, fever, pneumonia - pulm holding off on weaning. Solu-Medrol DC'd 04/20. Continue neb treatments and pulmonary toilet. Blood sugars trending down off solu-medrol. Monitor. Continuing Lantus, scheduled Novolog and sliding scale. Nutritional support with DH tube feeding. Monitor potassium and sodium. TF goal is 65 ml/hr. Lasix at to 20mg IV BID due to edema to legs. Abdomen slightly distended. Bowels have slowed down on lower dose of Reglan again, will increase to 10 mg iv q6 and monitor. Daily suppository and continue MoM. KUB does not show obstruction. Pharmacy out of nystatin s&s for thrush. Start Diflucan 04/21/17 Continue Vancomycin - meropenem started yesterday - suspecting new pneumonia. Continue mechanical ventilation for respiratory support. FIO2 needs with slight improvement today. Continue neb treatments and pulmonary toilet. DH not flushing - will attempt to replace. If not able to restart TF would hold routine insulin and decrease Lantus to 15 units this evening to decrease potential for hypoglycemia. TF goal is 65 ml/hr. Lasix at to 20mg IV BID due to edema to legs. Creatinine, potassium, and BP stable. Discussed with Pulm about family concern regarding potential dental abscess - worry respiratory status not stable enough at this time to risk CT scan. 04/22/17 Continue Vancomycin and meropenem - WBC with decrease, still temp elevations. Continue mechanical ventilation for respiratory support. FIO2 needs down to 40% . Continue neb treatments and pulmonary toilet. DH replaced last night. Continuing with TF. TF goal is 65 ml/hr. Will give additional 20mg IV Lasix today as intake greater than output. Creatinine and potassium normal. Dr Ibarra consulted for possible trach - plans on 04/24. 04/23/17 Continue meropenem - Vancomycin stopped by ID as no staph isolated. WBC with decrease to 12.7. Continue mechanical ventilation for respiratory support. FIO2 needs down to 40% . Trach planned for tomorrow. Continue neb treatments and pulmonary toilet. PRN Ibuprofen added to help temp elevation. TF to hold after midnight tonight. Will hold Lantus 50 units and Scheduled insulin to decrease risk for hypoglycemia. Lantus 10 units tonight x1. 04/24/17 OP day - Trach and feeding tube Continue meropenem for antimicrobial coverage Continue mechanical ventilation for respiratory support. Trach performed successfully. Continue neb treatments and pulmonary toilet. Feeding tube placed. Able to restart tube feeding this evening at 2100. Will restart Lantus at 40 units tonight. Can stop IVF initiated with surgery once TF started. Start TF at 60cc/hr. 04/25/17 Continue meropenem for antimicrobial coverage. WBC has normalized, temp elevations present. Continue mechanical ventilation for respiratory support. Continue neb treatments and pulmonary toilet. Tube Feeding restarted. Increase Lantus to 50 units nightly. Will give 20mEq KCL per tube today as potassium low-likely secondary to holding TF yesterday. CM checking into tank terminal gauger acute care hospitalization - suspect slow recovery. 04/26/17 Continue meropenem for antimicrobial coverage. WBC has normalized, temp elevations present. ID recommending at least 7 days of Meropenem. Continue mechanical ventilation for respiratory support. Continue neb treatments and pulmonary toilet. Respiratory status stable. Continue with Tube Feeding restarted. Will give 30cc MOM to help stimulate bowel function due to increased residuals. Will give 40mEq KCL per tube today as potassium low. Volume status stable - will continue IV Lasix. 04/27/17 Rough evening yesterday. Had significant episode of emesis. TF held and Lantus decreased. BS stable (decreased with no FT). Minimal stool output. Continue meropenem for antimicrobial coverage. WBC has normalized. ID recommending at least 7 days of Meropenem. Continue mechanical ventilation for respiratory support. Continue neb treatments and pulmonary toilet. Respiratory status stable. Hold on tube feedings for bowel rest secondary to emesis last night. Will check KUB/Upright. Lantus held secondary to holding TF. BS stable. Start 1/2NS with 20KCl at 75 for maintenance fluids with holding TF. Restart Dulcolax suppositories for bowel stimulation. Volume status stable - will continue IV Lasix. 04/28/17 Did remove central line and sent for culture secondary to temp elevations. Peripheral site obtained. No further vomiting since TF held. Did pass large stool. KUB/Upright overread from this morning pending, but looks like significant stool burden in left colon. Tolerating vent. Settings: VC - TV: 500 Rate 15 PEEP 6 FiO2 40%. Sugars stable - Lantus, routine insulin held as TF on hold. Ar[facility] for [facility] vent care. Will discharge to [facility]. See orders for details. Time spent with patient: discharge greater than 30 minutes DVT Prophylaxis: SCD's, Lovenox Discharge Plan - Discharge Disposition Discharge Date: 04/28/17 Disposition: 02 Acute Care Hosp, Other *Condition: Stable Reason For Visit (Visit label in EMR): Sepsis, hypoxia - Discharge Medications *Discharge Medications: New Albuterol/Ipratropium [Duoneb] 3 ml AEROSOL Q4HR each Albuterol/Ipratropium [Duoneb] 3 ml AEROSOL Q2HR PRN each PRN Reason: Shortness Of Air Benzocaine 20% Oral Gel [Orajel] 1 applicatio MM QID PRN tube PRN Reason: Mouth Pain Chlorhexidine Rinse [Peridex] 15 ml PO BID bottle Dextrose 50% Pfs [D50%W] 20 ml IVP PRN PRN syringe PRN Reason: Hypoglycemia Enoxaparin Sodium [Lovenox] 40 mg SQ DAILY syringe FentaNYL [Fentanyl] 50 mcg IVP Q1HR PRN vial PRN Reason: Pain Fluconazole [Diflucan] 200 mg PO DAILY ml Furosemide [Lasix] 20 mg IVP Q12HR vial Haloperidol Inj [Haldol] 5 mg IVP Q6H PRN vial PRN Reason: Agitation LORazepam INJ [Ativan Inj] 2 mg IVP Q1H PRN vial PRN Reason: Anxiety/Restlessness Meropenem [Merrem] 1 gm IV Q8H ml Metoclopramide [Reglan] 10 mg IVP Q6HR vial Milk of Magnesia [Mom] 30 ml PO DAILY PRN udc PRN Reason: Constipation Nystatin Oral Liq. [Mycostatin] 5 ml PO QID udc Ondansetron Inj [Zofran] 4 mg IVP Q4H PRN vial PRN Reason: Nausea &/Or Vomiting Pantoprazole IV [Protonix IV] 40 mg IVP BID vial Polyvinyl Alcohol/Povidone O/S [Refresh Classic] 1 drop EACH EYE PRN PRN ampul PRN Reason: Dry Eyes Acetaminophen 650 mg PO Q5H PRN solution PRN Reason: Discomfort Bisacodyl Supp [Dulcolax] 10 mg RECTALLY DAILY suppositor Ibuprofen 600 mg PO Q8H PRN oral.susp PRN Reason: Fever Terbinafine Cream [LamISIL AT] 1 applicatio TOP BID tube Continue Ibuprofen 200 mg PO TID Acetaminophen [Tylenol] 500 mg PO TID - Discharge Packet/Instructions *Diet: NPO - Tube feeding has been held seconary to N/V *Activity: Increase as able *Pain Management/Treatment: Tylenol/Ibuprofen as needed. *Wound Care: n/a Additional Instructions: Vent setting: VC. TV 500. Rate 15. FiO2 40%. PEEP 6. Tube feeding has been held secondary to N/V *Expected Signs/Symptoms: Improvement of breathing - weaning off vent. *Notify Physician if: Temp >100.4. Pain/nausea *During Business Hours Contact: Nursing at [facility] *After Business Hours Contact: Nursing at [facility] *Pending Lab/Results: Follow up w/Provider - Referrals/Follow Up *Referrals/Follow Up: Will Plata IV, MD [Physician] - (Will follow at [facility]) - Patient Handouts - Dismissal Complete Discharge Instructions are:: Complete Physician Narrative - Narrative Physician: Wally Lewis MD Attestation Narrative: Date: 04/28/17 Time: [id number] I have independently interviewed and examined patient prior to discharge. See my progress note from today for details. Medically stable for discharge to [facility].
[2017-04-28 16:22] VITALS: BP 125/72; O2SAT 93
[2017-04-28 16:35] VITALS: PULSE 100; RESP 25
== END 2017-04-28 17:22 | DRG 4 ==
LOC: ED 11:30 → MED 11:44 → SUATTDRO 11:44 → MED 12:20 → CCU 16:30
PROVIDERS: ADMIT Hospitalist; ATTEND Hospitalist